=== PATIENT | male | born 1950 | race Caucasian/White ===

== ENCOUNTER 2016-11-18 13:10 | Inpatient (IN) | payer MEDICARE, OTHER ==
[~2016-11-18] VITALS: Ht 165.1 cm; Wt 67.8 kg
[~2016-11-18 13:10] MED LIST: ASP81 PO; ATOR40TA68 PO; BENA20TA65 PO; Carvedilol PO; FAMO20TA18 PO; FURO40TA PO; GLIM1TAB PO; PRED20TA PO; SPIR25TA76 PO
[2016-11-18] MEDS ORDERED: ASPIRIN 325 MG TAB PO STA (17:31)
[2016-11-18] MEDS ORDERED: morphine 4 MG/ML VIAL IV STA ×2 (18:30→23:45)
[2016-11-18] MEDS ORDERED: ONDANSETRON 4 MG INJ IV STA (18:30)
[2016-11-18 18:37] LABS: BASOPHILS % 0.4 % (0.0-2.0); EOSINOPHILS # 0.1 10^3/ul (0.0-0.5); EOSINOPHILS % 0.8 % (0.0-7.0); HEMATOCRIT 29.7 % (42.0-52.0); HEMOGLOBIN 9.8 g/dl (14.0-18.0); LYMPHOCYTES # 1.4 10^3/ul (0.8-2.9); LYMPHOCYTES % 17.9 % (15.0-51.0); MEAN CORPUSCULAR HEMOGLOBIN 31.2 pg (29.0-33.0); MEAN CORPUSCULAR VOLUME 94.7 fl (82.0-101.0); MEAN PLATELET VOLUME 10.1 fl (7.4-10.4); MONOCYTE # 0.6 10^3/ul (0.3-0.9); MONOCYTES % 7.3 % (0.0-11.0); NEUTROPHIL # 5.9 10^3/ul (1.6-7.5); NEUTROPHILS % 73.6 % (39.0-77.0); PLATELET COUNT 211 10^3/UL (140-440); RED BLOOD COUNT 3.13 10^6/ul (4.70-6.10); RED CELL DISTRIBUTION WIDTH 21.9 % (11.5-14.5)
[2016-11-18 18:39] LABS: CONDITION 1; LH ANALYZER COMMENTS 1
[2016-11-18 18:48] LABS: INR 1.8; PT RATIO 1.6
[2016-11-18 18:49] LABS: ALBUMIN 3.9 g/dl (3.3-4.9); CHLORIDE 110 mmol/L (97-110); PARTIAL THROMBOPLASTIN TIME 39.4 Sec (25.0-35.0); POTASSIUM 5.3 mmol/L (3.5-5.1); SODIUM 148 mmol/L (135-144)
--- NOTE | 2016-11-18 18:49 | RADRPT ---
PROCEDURE: XR Chest. CLINICAL INDICATION: Chest pain. TECHNIQUE: Single frontal view. COMPARISON: 09/06/2014. FINDINGS: There is a large right pleural effusion and associated consolidation in the right mid and lower lung zones. A mass lesion cannot be excluded. The left lung is clear and there is no left pleural effu jessica. The heart is enlarged. There is calcification in the aorta consistent with atherosclerosis. There is no pneumothorax. IMPRESSION: 1. Large right pleural effusion and consolidation in the right mid and lower lung zones. A mass le jessica cannot be excluded. Correlation with CT scan of chest is advised. 2. Clear left lung. 3. Cardiomegaly and atherosclerosis. RPTAT: QQ .Adrian Sosa MD, MD Date Time Electronically viewed and signed by .Adrian Sosa MD, on 11/18/2016 18:49 .R/
[2016-11-18 18:51] LABS: BILIRUBIN,INDIRECT 0.5 mg/dl (0-1.1); BILIRUBIN,TOTAL 0.5 mg/dl (0.2-1.3); CREATININE 1.91 mg/dl (0.61-1.24)
[2016-11-18 18:52] LABS: ALANINE AMINOTRANSFERASE 38 IU/L (13-69); ALBUMIN/GLOBULIN RATIO 0.82; ALKALINE PHOSPHATASE 265 IU/L (42-121); ANION GAP 19 (8-16); ASPARTATE AMINO TRANSFERASE 31 IU/L (15-46); BLOOD UREA NITROGEN 51 mg/dl (7-20); CARBON DIOXIDE 24 mmol/L (21-31); GLUCOSE 107 mg/dl (70-220); TOTAL PROTEIN 8.6 g/dl (6.1-8.1)
[2016-11-18 19:00] LABS: B-TYPE NATRIURETIC PEPTIDE 13600 PG/ML (0-125)
[2016-11-18 19:05] LABS: TROPONIN-I < 0.012 ng/ml (0.00-0.12)
[2016-11-18] MEDS ORDERED: NA POLYST SULFON 15 GM/60 ML BTL PO ONE (20:00)
[2016-11-18] MEDS ORDERED: FUROSEMIDE 40 MG INJ IV ONE (20:00)
[2016-11-18] MEDS ORDERED: ACETAMINOPHEN 325 MG TAB PO PRN (21:00)
[2016-11-18] MEDS ORDERED: ONDANSETRON 4 MG INJ IV PRN (21:00)
--- NOTE | 2016-11-18 21:13 | RADRPT ---
PROCEDURE: CT chest without contrast. CLINICAL INDICATION: Abnormal chest x-ray TECHNIQUE: Noncontrast CT of the chest was performed utilizing axial images with reconstructions i n sagittal and coronal planes. The administered radiation dose is CTDI 8.9 mGy, DLP 347 mGy-cm. COMPARISON: Chest x-ray performed earlier the same day. FINDINGS: Chest: There is a large, likely loculated right pleural effusion and atelectasis of most of the right lung. Also seen is a small to moderate left pleural effusion with some mild associated atelectasis. The re is opacification of and the right lower lobe bronchi. There is mild cardiomegaly. Coronary artery and cardiac valvular calcifications are noted. There i s small pericardial effusion. Some atherosclerotic calcifications are noted within the aorta. Visualized Upper abdomen: Unremarkable. Osseous structures: Unremarkable. IMPRESSION: Large right and small left pleural effusions with associated atelectasis. The right pleural effusio n is likely loculated. Opacification of some of the right lower lobe bronchi possibly due to mucous plugging although a les ion would not be excluded, especially on a noncontrast exam. RPTAT: HIKT .Bashir Persaud MD, Date Time Electronically viewed and signed by .Bashir Persaud MD, on 11/18/2016 21:13 .T/
[2016-11-18 23:45] VITALS: BP 137/76; PULSE 63; RESP 20
--- NOTE | 2016-11-18 23:49 | ERA ---
ER Documentation Chief Complaint Date/Time DATE: 11/18/16 TIME: 23:36 Chief Complaint Patient complains of chest pain and SOB hx of Ascites HPI 66-year-old male comes emergency room complaining of chest pain shortness of breath and diffuse abdominal pain. Has a history of liver failure with ascites. He denies any fever and chills. Chest pain is described as substernal and nonradiating. He's been having pain for 2 days. ROS All systems reviewed and are negative except as per history of present illness. Medications Home Meds Active Scripts Prednisone* (Prednisone*) 20 Mg Tab, 30 MG PO DAILY for 5 Days, TAB Prov:ABDOUL JONES [employer] LABORATORY ASSISTANT 04/28/15 Benazepril Hcl* (Lotensin*) 20 Mg Tab, 20 MG PO DAILY, #30 Prov:KATE JACOBS B[employer] LABORATORY ASSISTANT 09/07/14 Spironolactone* (Aldactone*) 25 Mg Tab, 25 MG PO DAILY, #30 Prov:KATE JACOBS [employer] LABORATORY ASSISTANT 09/07/14 Furosemide* (Lasix*) 40 Mg Tab, 40 MG PO BID DIURETICS, #60 Prov:KATE JACOBS [employer] LABORATORY ASSISTANT 09/07/14 [Carvedilol] 3.125 MG TAB No Conflict Check, 12.5 MG PO BID, #60 TAB Prov:KATE JACOBS [employer] LABORATORY ASSISTANT 09/07/14 Aspirin (Aspirin) 81 Mg Chew, 81 MG PO DAILY, #30 Prov:KATE JACOBS [employer] LABORATORY ASSISTANT 09/07/14 Reported Medications Atorvastatin* (Atorvastatin*) 40 Mg Tablet, 40 MG PO HS, TAB 09/07/14 Glimepiride* (Amaryl*) 1 Mg Tablet, 1 MG PO DAILY 09/28/12 Famotidine* (Famotidine*) 20 Mg Tablet, 20 MG PO DAILY 09/28/12 Allergies Allergies: Coded Allergies: No Known Allergy (Verified , 09/04/14) PMhx/Soc History of Surgery: Yes (Gastric Resection) Anesthesia Reaction: No Hx Neurological Disorder: No Hx Respiratory Disorders: No Hx Cardiac Disorders: Yes (CHF) Hx Psychiatric Problems: No Hx Miscellaneous Medical Probl: Yes (DM, Colon CA) Hx Alcohol Use: No Hx Substance Use: No Hx Tobacco Use: No Smoking Status: Never smoker Physical Exam Vitals Vital Signs Date Time Temp Pulse Resp B/P Pulse Ox O2 Delivery O2 Flow Rate FiO2 11/18/16 18:30 61 24 131/75 98 Nasal Cannula 2.0 11/18/16 18:16 59 18 130/79 99 Nasal Cannula 2.0 11/18/16 17:50 Nasal Cannula 2 11/18/16 13:15 98.3 71 20 143/81 97 Physical Exam Const: [] Mild distress, appears uncomfortable Head: Atraumatic Eyes: Normal Conjunctiva ENT: Normal External Ears, Nose and Mouth. Neck: Full range of motion..~ No meningismus. Resp: Markedly decreased right-sided breath sounds, left basilar rales, mild tachypnea Cardio: Regular rate and rhythm, no murmurs Abd: Soft, moderately distended, no specific tenderness,. Normal bowel sounds Skin: No petechiae or rashes Back: No midline or flank tenderness Ext: 2+ pitting edema bilateral lower extremities with distal pulses intact all 4 extremities Neur: Awake and alert and oriented 3, no focal deficits Psych: Normal Mood and Affect Result Diagram: 11/18/16 1800 11/18/16 1800 Results 24 hrs Laboratory Tests Test 11/18/16 18:00 Activated Partial Thromboplast Time 39.4Sec Alanine Aminotransferase (ALT/SGPT) 38IU/L Albumin 3.9g/dl Albumin/Globulin Ratio 0.82 Alkaline Phosphatase 265IU/L Anion Gap 19 Aspartate Amino Transf (AST/SGOT) 31IU/L B-Type Natriuretic Peptide 65040YT/ML Basophils # 0.010^3/ul Basophils % 0.4% Blood Morphology Comment Blood Urea Nitrogen 51mg/dl Calcium Level 9.0mg/dl Carbon Dioxide Level 24mmol/L Chloride Level 110mmol/L Creatinine 1.91mg/dl Direct Bilirubin 0.00mg/dl Eosinophils # 0.110^3/ul Eosinophils % 0.8% Globulin 4.70g/dl Glucose Level 107mg/dl Hematocrit 29.7% Hemoglobin 9.8g/dl INR International Normalized Ratio 1.80 Indirect Bilirubin 0.5mg/dl Lipase 104U/L Lymphocytes # 1.410^3/ul Lymphocytes % 17.9% Mean Corpuscular Hemoglobin 31.2pg Mean Corpuscular Hemoglobin Concent 33.0g/dl Mean Corpuscular Volume 94.7fl Mean Platelet Volume 10.1fl Monocytes # 0.610^3/ul Monocytes % 7.3% Neutrophils # 5.910^3/ul Neutrophils % 73.6% Nucleated Red Blood Cells # 0.010^3/ul Nucleated Red Blood Cells % 0.0/100WBC Platelet Count 73705^3/UL Potassium Level 5.3mmol/L Prothrombin Time 21.0Sec Prothrombin Time Ratio 1.6 Red Blood Count 3.1310^6/ul Red Cell Distribution Width 21.9% Sodium Level 148mmol/L Total Bilirubin 0.5mg/dl Total Protein 8.6g/dl Troponin I < 0.012ng/ml White Blood Count 8.010^3/ul Current Medications Medications (Trade) Dose Ordered Sig/[place] Route PRN Reason Start Time Stop Time Status Last Admin Dose Admin Aspirin (Aspirin) 325 mg ONCE STAT PO 11/18/16 17:31 11/18/16 17:32 DC 11/18/16 18:46 Morphine Sulfate (morphine) 4 mg ONCE STAT IV 11/18/16 18:30 11/18/16 18:31 DC 11/18/16 18:46 Ondansetron HCl (Zofran Inj) 4 mg ONCE STAT IV 11/18/16 18:30 11/18/16 18:31 DC 11/18/16 18:46 Furosemide (Lasix) 40 mg ONCE ONCE IV 11/18/16 20:00 11/18/16 20:01 DC 11/18/16 20:02 Sodium Polystyrene Sulfonate (Kayexalate) 30 gm ONCE ONCE PO 11/18/16 20:00 11/18/16 20:01 DC 11/18/16 19:58 Procedures/MDM 66-year-old male with dyspnea, tachypnea and large loculated right-sided pleural effusion, elevated BNP likely secondary to fluid overload from chronic renal failure versus congestive heart failure. Patient with chest pain was given aspirin, has no significant. Patient did have inverted T-wave in V6 however troponin is negative. Serial troponins will be trended. Patient and family state that he had a pleural effusion before that needed to be drained. This is likely reaccumulated causing his dyspnea. Had mild hyperkalemia was treated with Kayexalate. Given morphine for his pain as well as help decrease the pain. Being admitted to telemetry for further management. I spoke with Dr. Kelly who will be admitting. EKG interpretation: Sinus rhythm rate of 60, right bundle branch block, inverted T-wave in V6 and biphasic T waves in V5 concerning for possible lateral ischemia, right axis deviation satellite project site monitor interpretation: Normal sinus rhythm without arrhythmia Chest x-ray interpretation: Large right-sided pleural effusion with possible mass., No pneumothorax, no fractures Chest CT interpretation: Large loculated right pleural effusion, bilateral pleural effusions. No pneumothorax, no fractures Departure Diagnosis: Primary Impression: Fluid overload Additional Impressions: Pleural effusion Chest pain Hyperkalemia Dyspnea Renal insufficiency Normocytic anemia Condition: Serious GIBRANJOSUEREGGIE DO Nov 18, 2016 23:49
[2016-11-19] VITALS (11 sets, daily range): BP systolic 114–141; BP diastolic 66–75; PULSE 50–70; RESP 17–20; Ht 165.1 cm; Wt 67.8 kg
[2016-11-19 00:18] LABS: TROPONIN-I 0.016 ng/ml (0.00-0.12)
[2016-11-19 00:30] LABS: CK-MB 1.85 ng/ml (0.0-2.4)
[2016-11-19] MEDS ORDERED: GUAIFENESIN/CODEINE 5ML CUP PO ONE ×2 (01:00→02:00)
[2016-11-19] MEDS ORDERED: ACETAMINOPHEN 325 MG TAB PO PRN (01:00)
[2016-11-19] MEDS: ALBUTEROL/IPRATROPIUM (NEB) 3 ML AMP HHN PRN ×2 (01:55→11:17)
[2016-11-19] MEDS: morphine 4 MG/ML VIAL IV PRN ×2 (01:59→15:27)
[2016-11-19] MEDS ORDERED: ACCUCHECK XX SCH (02:00)
[2016-11-19] MEDS: ACCUCHECK XX SCH (02:12)
[2016-11-19] MEDS: ONDANSETRON 4 MG INJ IV PRN (03:35)
[2016-11-19] MEDS ORDERED: METOCLOPRAMIDE 10 MG INJ IV PRN (05:00)
--- NOTE | 2016-11-19 05:27 | RADRPT ---
PROCEDURE: XR Abdomen. CLINICAL INDICATION: Abdominal distension TECHNIQUE: Two AP views of the abdomen were obtained COMPARISON: None. FINDINGS: There is a nonobstructive bowel gas pattern. No abnormal soft tissue calcifications are seen. The v isualized portions of the lung bases demonstrate consolidation of the right lower lobe The osseous structures are unremarkable. IMPRESSION: Unremarkable abdomen x-ray. RPTAT: HH .Mohini Nam MD, MD Date Time Electronically viewed and signed by .Mohini Nam MD, on 11/19/2016 05:26 .G/
[2016-11-19] MEDS: FUROSEMIDE 20 MG INJ IV SCH (05:50)
[2016-11-19] MEDS ORDERED: FUROSEMIDE 40 MG TAB PO SCH (06:00)
[2016-11-19] MEDS: ONDANSETRON INJ 8 MG in DEXTROSE 5% 50 ML IV SCH ×4 (06:04→23:34)
[2016-11-19 06:38] LABS: TROPONIN-I 0.015 ng/ml (0.00-0.12)
[2016-11-19 06:44] LABS: CK-MB 1.78 ng/ml (0.0-2.4)
[2016-11-19] MEDS: INSULIN ASPART [NOVOLOG] 3 ML PEN SC SCH ×4 (07:55→20:51)
--- NOTE | 2016-11-19 08:32 | HP ---
DATE OF ADMISSION: 11/18/2016 TIME SEEN: 2300. CHIEF COMPLAINT: Shortness of breath and chest pain. HISTORY OF PRESENT ILLNESS: The patient is a 66-year-old female with a history of cardiomyopathy wi th systolic dysfunction with EF of 35%, hypertension, atrial fibrillation, dyslipidemia, type 2 diab etes, gastric and colon cancer, status post surgery who presented to the emergency department with s hortness of breath and chest pain. The patient also reported abdominal distention and lower extremi ty swelling. This symptom has been progressively getting worse for the past few days. The chest pa in is substernal, described as a sharp in tightness with no radiation. Denied nausea, vomiting, or diaphoresis. The patient does have a history of a pleural effusion requiring thoracentesis in the p ast. When the patient presented to the ER, blood pressure was 143/81, heart rate 71, respiratory rate 20, temperature 98.3, oxygen saturation 97%. Laboratory value shows a sodium of 148, potassium 5.3, BU N 51, creatinine 1.91, alkaline phosphatase 265, hemoglobin 9.8. BNP is 13,600. First troponin is negative. A chest x-ray shows a large right pleural effusion and consolidation in the right mid and lower lung zones. Mass cannot be excluded. CT of the chest was done which showed again large righ t and small left pleural effusion with associated atelectasis. The right pleural effusion is likely loculated. Also, opacification of some of the right lower lobe bronchi, possibly due to mucous plu gging, is noted. Also a lesion would not be excluded. Abdominal x-ray was done which was unremarka ble. The patient received 40 mg of IV Lasix, pain medication, and Kayexalate for hyperkalemia as we ll as aspirin, and admitted to telemetry unit. REVIEW OF SYSTEMS: A 12-point review of systems was performed and negative except as mentioned in t he HPI. PAST MEDICAL HISTORY: As per HPI. PAST SURGICAL HISTORY: Abdominal surgery for gastric and colon cancer. SOCIAL HISTORY: The patient does have a history of alcohol abuse, but no history of tobacco or illi cit drug use. FAMILY HISTORY: Noncontributory. ALLERGIES: NO KNOWN DRUG ALLERGIES. HOME MEDICATIONS: 1. Lipitor. 2. Benazepril. 3. Aldactone. 4. Aspirin. 5. Lasix. 6. Pepcid. 7. Glimepiride. 8. Prednisone. 9. Coreg. PHYSICAL EXAMINATION: VITAL SIGNS: Blood pressure 127/80, heart rate 61, respiratory rate 24, temperature 98.3, oxygen sa turation 99% on 3 L. GENERAL: The patient looks slightly uncomfortable, in mild distress. HEENT: No obvious head deformity. Pupils are reactive to light. Extraocular muscles intact. CARDIOVASCULAR: Regular rate and rhythm. LUNGS: Decreased breath sounds at the right side of her lung and at the bases on the left. ABDOMEN: Soft, distended, very minimal discomfort to deep palpation. There are positive bowel soun ds. EXTREMITIES: Positive for edema. NEUROLOGIC: No focal deficit. LABORATORY: Pertinent positives as mentioned in the HPI. IMAGING: Chest x-ray, chest CT, and abdominal x-ray results as mentioned in the HPI. IMPRESSION: 1. Shortness of breath, secondary to large pleural effusion. 2. Chest pain, most likely secondary to above. 3. Abdominal distention, from ascites, likely secondary to alcoholic liver disease. 4. History of cardiomyopathy with systolic dysfunction. 5. Chronic kidney disease. 6. Hyperkalemia. 7. History of atrial fibrillation, rate controlled and in sinus. 8. History of gastric and colon cancer status post surgery and chemo. 9. History of alcohol abuse. 10. Normocytic anemia, most likely secondary to anemia of chronic disease. PLAN: Continue telemetry monitoring. We will continue diuresis. Will order ultrasound-guided thor acentesis. Will also obtain abdominal ultrasound, and based on the results, reconsider paracentesis . Will obtain a 2-D echo. Continue her cardiac medication. Correct electrolytes as needed, the bill quesada has been given Kayexalate for hyperkalemia already. Avoid nephrotoxins and monitor kidney fun ction closely. She will also be placed on an antibiotic. Further workup and management will be per clinical course. Dictated By: RICK CHEUNG/LANG Conf#: [id number] DID#: [id number]
[2016-11-19] MEDS ORDERED: SOD CHLORIDE 0.9% 250 ML IV* ONE (08:54)
[2016-11-19] MEDS ORDERED: HEPARIN 5,000 UNIT/0.5 ML SYG SC SCH (09:00)
[2016-11-19] MEDS ORDERED: CARVEDILOL 12.5 MG PO SCH (09:00)
[2016-11-19] MEDS: SPIRONOLACTONE 25 MG TAB PO SCH (09:02)
[2016-11-19] MEDS: ASPIRIN 81 MG TAB PO SCH (09:02)
[2016-11-19] MEDS: FAMOTIDINE 20 MG TAB PO SCH (09:02)
[2016-11-19] MEDS: BENAZEPRIL 20 MG TAB PO SCH (09:03)
--- NOTE | 2016-11-19 09:51 | PN ---
Date/Time of Note Date/Time of Note DATE: 11/19/16 TIME: 09:39 Assessment/Plan VTE Prophylaxis VTE Prophylaxis Intervention: contraindicated VTE Contraindication Reason: blood coagulation disorder Lines/Catheters IV [facility]from [facility] Urinary Cath still in place: No Assessment/Plan Assessment/Plan 1. Shortness of breath, secondary to large pleural effusion. - thoracentesis once INR is decreased to 1.5 - FFP and Vit K to be given 2. Chest pain - pleuritic in nature - most likely secondary to above. 3. Abdominal distention, from ascites, likely secondary to alcoholic liver disease - monitor acute changes, abd x-ray negative 4. Cardiomyopathy with systolic dysfunction - f/u echo, strict I/O's 5. Chronic kidney disease - renally adjust medications, avoid nephrotoxins 6. Hyperkalemia - if > 5.5 - kayexlate 7. Atrial fibrillation, rate controlled and in sinus. - hold anticoagulation - 2/2 to coagulopathy 8. Gastric and colon cancer status post surgery and chemo. 9. Alcohol abuse - monitor labs 10. Normocytic anemia, most likely secondary to anemia of chronic disease. - stable 11. GI ppx - protonix 12. DVT ppx - scds dispo - f/u labs, INR, thoracentesis, as per clinical course. this progress note took greater than 40 minutes to complete Subjective 24 Hr Interval Summary Free Text/Dictation Patient was admitted overnight for shortness of breath. No acute complaints today. Spoke to him in regards to the care plan. 15 minutes spent. Exam/Review of Systems Vital Signs Vitals Vital Signs Date Time Temp Pulse Resp B/P Pulse Ox O2 Delivery O2 Flow Rate FiO2 11/19/16 08:12 60 11/19/16 03:35 97.6 17 134/73 98 11/19/16 02:06 Nasal Cannula 2.0 Intake and Output 11/18/16 11/18/16 11/19/16 15:00 23:00 07:00 Intake Total 200 ml Output Total 400 ml 830 ml Balance -400 ml -630 ml Exam Gen Ana: mild/moderate shortness of breath, AAOx4 HEENT: NC/AT, PERRLA, EOMI, no pharyngeal erythema, no tonsillar exudates, no lymphadenopathy, no JVD, no carotid bruits NECK: supple, no thyromegaly THORAX: symmetrical, no obvious deformities CV: S1S2, RRR, no M/G/R Lungs: right diminished breath sounds, left scattered rhonchi, crackles - no overt wheezing Abd: soft, NT/ND, +BS, no rebound, no guarding, neg HSM EXT: no edema, no ecchymosis, no clubbing, FROM Neuro: CN II-XII grossly intact, no focal deficits Psych: fair mood and affect Skin: C/D/I Results Result Diagram: 11/18/16 1800 11/18/16 1800 Results 24 hrs Laboratory Tests Test 11/18/16 18:00 11/18/16 23:45 11/19/16 01:37 11/19/16 05:15 Activated Partial Thromboplast Time 39.4 H Alanine Aminotransferase (ALT/SGPT) 38 Albumin 3.9 Albumin/Globulin Ratio 0.82 Alkaline Phosphatase 265 H Anion Gap 19 H Aspartate Amino Transf (AST/SGOT) 31 B-Type Natriuretic Peptide 59012 H Basophils # 0.0 Basophils % 0.4 Blood Morphology Comment Blood Urea Nitrogen 51 H Calcium Level 9.0 Carbon Dioxide Level 24 Chloride Level 110 Creatinine 1.91 H Direct Bilirubin 0.00 Eosinophils # 0.1 Eosinophils % 0.8 Globulin 4.70 H Glucose Level 107 Hematocrit 29.7 L Hemoglobin 9.8 L INR International Normalized Ratio 1.80 Indirect Bilirubin 0.5 Lipase 104 Lymphocytes # 1.4 Lymphocytes % 17.9 Mean Corpuscular Hemoglobin 31.2 Mean Corpuscular Hemoglobin Concent 33.0 Mean Corpuscular Volume 94.7 Mean Platelet Volume 10.1 Monocytes # 0.6 Monocytes % 7.3 Neutrophils # 5.9 Neutrophils % 73.6 Nucleated Red Blood Cells # 0.0 Nucleated Red Blood Cells % 0.0 Platelet Count 211 # Potassium Level 5.3 H Prothrombin Time 21.0 H Prothrombin Time Ratio 1.6 Red Blood Count 3.13 L Red Cell Distribution Width 21.9 #H Sodium Level 148 H Total Bilirubin 0.5 Total Protein 8.6 H Troponin I < 0.012 0.016 0.015 White Blood Count 8.0 # Creatine Kinase 75 69 Creatine Kinase Index 2.5 2.6 Creatinine Kinase MB (Mass) 1.85 1.78 Bedside Glucose 116 Test 11/19/16 08:53 Bedside Glucose 107 Medications Medications Current Medications Diagnostic Test (Pha) (Accucheck) 1 ea 02 XX Last administered on 11/19/16at 02 :12; Admin Dose 1 EA; Start 11/19/16 at 02:00 Acetaminophen (Tylenol Tab) 650 mg Q6H PRN PO PAIN AND OR ELEVATED TEMP; Start 11/19/16 at 01:00 Ondansetron HCl (Zofran Inj) 4 mg Q6H PRN IV NAUSEA AND/OR VOMITING Last administered on 11/19/16 03:35; Admin Dose 4 MG; Start 11/19/16 at 01:00 Aspirin (Aspirin) 81 mg DAILY PO Last administered on 11/19/16 09:02; Admin Dose 81 MG; Start 11/19/16 at 09:00 Atorvastatin Calcium (Lipitor) 40 mg HS PO ; Start 11/19/16 at 21:00 Benazepril HCl (Lotensin) 20 mg DAILY PO Last administered on 11/19/16 09:03 ; Admin Dose 20 MG; Start 11/19/16 at 09:00 Famotidine (Pepcid) 20 mg DAILY PO Last administered on 11/19/16at 09:02; Admin Dose 20 MG; Start 11/19/16 at 09:00 Spironolactone (Aldactone) 25 mg DAILY PO Last administered on 11/19/16 09:02 ; Admin Dose 25 MG; Start 11/19/16 at 09:00 Carvedilol (Coreg) 12.5 mg BID PO Last administered on 11/19/16 09:05; Admin Dose 12.5 MG; Start 11/19/16 at 09:00 Morphine Sulfate 3 mg 3 mg Q4H PRN IV PAIN Last administered on 11/19/16at 01: 59; Admin Dose 3 MG; Start 11/19/16 at 01:30 Ondansetron HCl/ Dextrose (Zofran Inj/D5W) 54 ml @ 108 mls/hr Q6H IV Last administered on 11/19/16 06:04; Admin Dose 108 MLS/HR; Start 11/19/16 at 05: 00 Metoclopramide HCl (Reglan) 10 mg Q6H PRN IV VOMITTING Last administered on 05:21; Admin Dose 10 MG; Start 11/19/16 at 05:00 Furosemide (Lasix) 20 mg DAILY@06 IV Last administered on 12/26/16at 05:50; Admin Dose 20 MG; Start 11/19/16 at 06:00 AZRA GUPTA MD Nov 19, 2016 09:51
[2016-11-19] MEDS ORDERED: PHYTONADIONE 5 MG in DEXTROSE 5% 50 ML IVPB ONE (10:00)
--- NOTE | 2016-11-19 13:32 | CONS ---
DATE OF ADMISSION: 11/18/2016 DATE OF CONSULTATION: 11/19/2016 TYPE OF CONSULTATION: Pulmonary. REFERRING PHYSICIAN: Dr. Hubert Angulo REASON FOR CONSULTATION: Shortness of breath and right pleural effusion. HISTORY OF PRESENT ILLNESS: A 66-year-old gentleman with past medical history of cardiomyopathy wit h ejection fraction of 35%, hypertension, atrial fibrillation, dyslipidemia, diabetes type 2, history of gastric and colon CA status post-surgical resection who presented to ER with complaints of chest pain and shortness of breath. He was describing his chest pain as chest tightness with no specific radiation. This was not associated with any diaphoresis, nausea, vomiting. Here, a CT scan of the chest was obtained which revealed a right pleural effusion, partially loculated. Subsequently, the patient was cultured and started on IV antibiotics and diuretic therapy. The patient claims that he has cough for past few days and brownish sputum. He denies any hemoptysis or other complaints. REVIEW OF SYSTEMS: CONSTITUTIONAL: Denies having fever, chills, night sweats. RESPIRATORY: As mentioned above. CARDIOVASCULAR: Admits to chest pain as mentioned above. No palpitation. GASTROINTESTINAL: Denies any nausea, vomiting, diarrhea, abdominal pain. GENITOURINARY: Denies dysuria, hematuria. NEUROLOGICAL: Denies dizziness, loss of consciousness. Other 12-point review of system was also pe rformed and found to be negative. PAST MEDICAL HISTORY: As mentioned above. ALLERGIES: DENIES. SOCIAL HABITS: History of alcohol abuse in the past. Denies smoking or drug abuse. FAMILY HISTORY: Noncontributory. PHYSICAL EXAMINATION: VITAL SIGNS: Blood pressure 141/75, pulse 64, respirations 20, temperature 97.9. Currently on 2 li ters O2 nasal cannula, saturating 100%. HEENT: Pupils are equal and react to light. Anicteric sclerae. NECK: Mild JVD noted, no cervical adenopathy, no carotid bruits heard. LUNGS: Decreased breath sounds on the right lung field. CARDIOVASCULAR: S1 and S2 normal. ABDOMEN: Soft, nontender. Slightly distended. Positive bowel sounds. EXTREMITIES: No clubbing, cyanosis or edema noted. NEUROLOGIC: No focal deficits. LABORATORIES: Sodium 148, potassium 5.3, chloride 110, CO2 24, BUN 51, creatinine 1.91, glucose 107 , alkaline phosphatase 65. BNP 13,600. Troponin 0.01. WBC 8, hemoglobin 9.8, hematocrit 29.7, alyssa telets 311 troponins are also negative. INR 1.8. Chest x-ray as mentioned above. IMPRESSION: A 66-year-old male with given the symptoms of cough, brownish sputum. I suspect the pa sangita has a right lower lobe pneumonia. 1. Right pleural effusion, question loculated. 2. Chest pain. 3. History of cardiomyopathy. 4. History of atrial fibrillation. 5. History of gastric and colon carcinoma. 6. History of chronic liver disease. RECOMMENDATIONS: 1. Sputum culture. 2. Antibiotics. 3. Thoracentesis once INR normalizes. I will follow along with you. Thank you very much for this referral. Dictated By: ANKITA PICKERING MD, MA/LANG Conf#: [id number] DID#: [id number]
[2016-11-19] MEDS: ATORVASTATIN 40 MG TAB PO SCH (20:51)
[2016-11-20] VITALS (12 sets, daily range): BP systolic 84–139; BP diastolic 51–73; PULSE 54–70; RESP 16–20
[2016-11-20] MEDS: ACCUCHECK XX SCH (02:00)
[2016-11-20] MEDS: FUROSEMIDE 20 MG INJ IV SCH (05:41)
[2016-11-20] MEDS: ONDANSETRON INJ 8 MG in DEXTROSE 5% 50 ML IV SCH ×4 (05:41→23:37)
[2016-11-20 06:14] LABS: INR 1.47; PROTIME 17.9 Sec (12.2-14.2); PT RATIO 1.4
[2016-11-20 06:16] LABS: PARTIAL THROMBOPLASTIN TIME 43.6 Sec (25.0-35.0)
[2016-11-20 06:25] LABS: BASOPHILS % 0.4 % (0.0-2.0); EOSINOPHILS # 0.1 10^3/ul (0.0-0.5); EOSINOPHILS % 0.8 % (0.0-7.0); HEMATOCRIT 26.2 % (42.0-52.0); HEMOGLOBIN 8.9 g/dl (14.0-18.0); LYMPHOCYTES # 1.1 10^3/ul (0.8-2.9); LYMPHOCYTES % 17.2 % (15.0-51.0); MEAN CORPUSCULAR HEMOGLOBIN 34.7 pg (29.0-33.0); MEAN CORPUSCULAR HGB CONC 34.1 g/dl (32.0-37.0); MEAN CORPUSCULAR VOLUME 101.7 fl (82.0-101.0); MEAN PLATELET VOLUME 9.8 fl (7.4-10.4); MONOCYTE # 0.5 10^3/ul (0.3-0.9); NEUTROPHIL # 4.9 10^3/ul (1.6-7.5); NEUTROPHILS % 73.6 % (39.0-77.0); PLATELET COUNT 174 10^3/UL (140-440); RED BLOOD COUNT 2.57 10^6/ul (4.70-6.10); RED CELL DISTRIBUTION WIDTH 21.1 % (11.5-14.5); UNCORRECTED WBC 6.6 10^3/ul (4.8-10.8); WHITE BLOOD COUNT 6.6 10^3/ul (4.8-10.8)
[2016-11-20 06:35] LABS: POTASSIUM 5.4 mmol/L (3.5-5.1)
[2016-11-20 06:37] LABS: CREATININE 2.13 mg/dl (0.61-1.24)
[2016-11-20 06:38] LABS: CALCIUM 8.7 mg/dl (8.4-10.2)
[2016-11-20 07:24] LABS: CONDITION 1; LH ANALYZER COMMENTS 1
[2016-11-20] MEDS ORDERED: GLUCOSE GEL 15 GRAM TUBE PO PRN ×2 (07:30)
[2016-11-20] MEDS ORDERED: GLUCOSE GEL 15 GRAM TUBE BUCCAL PRN (07:30)
[2016-11-20] MEDS ORDERED: GLUCAGON 1 MG INJ IM PRN (07:30)
[2016-11-20] MEDS ORDERED: DEXTROSE 50% 50 ML SYRINGE IV PRN ×2 (07:30)
[2016-11-20] MEDS: INSULIN ASPART [NOVOLOG] 3 ML PEN SC SCH ×4 (07:55→20:54)
[2016-11-20] MEDS: ASPIRIN 81 MG TAB PO SCH (08:31)
[2016-11-20] MEDS: SPIRONOLACTONE 25 MG TAB PO SCH (08:31)
[2016-11-20] MEDS: FAMOTIDINE 20 MG TAB PO SCH (08:31)
[2016-11-20] MEDS: BENAZEPRIL 20 MG TAB PO SCH (08:34)
--- NOTE | 2016-11-20 09:59 | PN ---
Date/Time of Note Date/Time of Note DATE: 11/20/16 TIME: 09:51 Assessment/Plan VTE Prophylaxis VTE Prophylaxis Intervention: contraindicated VTE Contraindication Reason: blood coagulation disorder Lines/Catheters IV C[facility]ter Type (from [facility] Peripheral IV Urinary Cath still in place: No Assessment/Plan Assessment/Plan 1. Shortness of breath, secondary to large pleural effusion. - thoracentesis today - f/u cytology/culture, appreciate pulm c/s 2. Chest pain - pleuritic in nature - most likely secondary to above. 3. Abdominal distention, from ascites, likely secondary to alcoholic liver disease - monitor acute changes, abd x-ray negative 4. Cardiomyopathy with systolic dysfunction - f/u echo, strict I/O's 5. Chronic kidney disease - renally adjust medications, avoid nephrotoxins 6. Hyperkalemia - if > 5.5 - kayexlate - will give 15 mg po today 7. Atrial fibrillation, rate controlled and in sinus. - hold anticoagulation - 2/2 to coagulopathy 8. Coagulopathy - will check hepatitis panel - most likely chronic liver disease 9. Gastric and colon cancer status post surgery and chemo. 10. Alcohol abuse - monitor labs 11. Megaloblastic anemia, most likely secondary to anemia of chronic disease. - check folate/vitb12 12. GI ppx - protonix 13. DVT ppx - scds dispo - f/u labs, INR, thoracentesis, as per clinical course. this progress note took greater than 30 minutes to complete Subjective 24 Hr Interval Summary Free Text/Dictation Patient had no overnight events. States that his breathing has improved slightly. Discussed with him and his about the care plan. 15 minutes spent. Exam/Review of Systems Vital Signs Vitals Vital Signs Date Time Temp Pulse Resp B/P Pulse Ox O2 Delivery O2 Flow Rate FiO2 11/20/16 08:16 58 11/20/16 05:45 2.0 11/20/16 04:00 98.0 18 113/70 98 Room Air Intake and Output 11/19/16 11/19/16 11/20/16 14:59 22:59 06:59 Intake Total 720 ml 660 ml Output Total 650 ml 1200 ml Balance 70 ml -540 ml Exam Gen Ana: mild shortness of breath, AAOx4 HEENT: NC/AT, PERRLA, EOMI, no pharyngeal erythema, no tonsillar exudates, no lymphadenopathy, no JVD, no carotid bruits NECK: supple, no thyromegaly THORAX: symmetrical, no obvious deformities CV: S1S2, RRR, no M/G/R Lungs: right diminished breath sounds, left scattered rhonchi, crackles - no overt wheezing - no new changes Abd: soft, NT/ND, +BS, no rebound, no guarding, neg HSM EXT: no edema, no ecchymosis, no clubbing, FROM Neuro: CN II-XII grossly intact, no focal deficits Psych: fair mood and affect Skin: C/D/I Results Result Diagram: 11/20/1651511/20/16 05 Results 24 hrs Laboratory Tests Test 11/19/16 12:43 11/19/16 17:31 11/19/16 20:48 11/20/16 05:16 Bedside Glucose 136 141 133 Activated Partial Thromboplast Time 43.6 H Anion Gap 19 H Basophils # 0.0 Basophils % 0.4 Blood Morphology Comment Blood Urea Nitrogen 54 H Calcium Level 8.7 Carbon Dioxide Level 23 Chloride Level 107 Creatinine 2.13 H Eosinophils # 0.1 Eosinophils % 0.8 Glucose Level 100 Hematocrit 26.2 L Hemoglobin 8.9 L INR International Normalized Ratio 1.47 Lymphocytes # 1.1 Lymphocytes % 17.2 Mean Corpuscular Hemoglobin 34.7 H Mean Corpuscular Hemoglobin Concent 34.1 Mean Corpuscular Volume 101.7 H Mean Platelet Volume 9.8 Monocytes # 0.5 Monocytes % 8.0 Neutrophils # 4.9 Neutrophils % 73.6 Nucleated Red Blood Cells # 0.0 Nucleated Red Blood Cells % 0.0 Platelet Count 174 Potassium Level 5.4 H Prothrombin Time 17.9 H Prothrombin Time Ratio 1.4 Red Blood Count 2.57 L Red Cell Distribution Width 21.1 H Sodium Level 144 White Blood Count 6.6 Test 11/20/16 08:30 Bedside Glucose 106 Medications Medications Current Medications Diagnostic Test (Pha) (Accucheck) 1 ea XX Last administered on 11/19/16at 02 :12; Admin Dose 1 EA; Start 11/19/16 at 02:00 Acetaminophen (Tylenol Tab) 650 mg Q6H PRN PO PAIN AND OR ELEVATED TEMP; Start 11/19/16 at 01:00 Ondansetron HCl (Zofran Inj) 4 mg Q6H PRN IV NAUSEA AND/OR VOMITING Last administered on 11/19/16 03:35; Admin Dose 4 MG; Start 11/19/16 at 01:00 Aspirin (Aspirin) 81 mg DAILY PO Last administered on 11/20/16 08:31; Admin Dose 81 MG; Start 11/19/16 at 09:00 Atorvastatin Calcium (Lipitor) 40 mg HS PO Last administered on 11/19/16at 20: 51; Admin Dose 40 MG; Start 11/19/16 at 21:00 Benazepril HCl (Lotensin) 20 mg DAILY PO Last administered on 11/19/16 09:03 ; Admin Dose 20 MG; Start 11/19/16 at 09:00 Famotidine (Pepcid) 20 mg DAILY PO Last administered on 11/20/16 08:31; Admin Dose 20 MG; Start 11/19/16 at 09:00 Spironolactone (Aldactone) 25 mg DAILY PO Last administered on 11/20/16 08:31 ; Admin Dose 25 MG; Start 11/19/16 at 09:00 Carvedilol (Coreg) 12.5 mg BID PO Last administered on 11/20/16 08:31; Admin Dose 12.5 MG; Start 11/19/16 at 09:00 Morphine Sulfate 3 mg 3 mg Q4H PRN IV PAIN Last administered on 11/19/16 15: 27; Admin Dose 3 MG; Start 11/19/16 at 01:30 Ondansetron HCl/ Dextrose (Zofran Inj/D5W) 54 ml @ 108 mls/hr Q6H IV Last administered on 11/20/16 05:41; Admin Dose 108 MLS/HR; Start 11/19/16 at 05: 00 Metoclopramide HCl (Reglan) 10 mg Q6H PRN IV VOMITTING Last administered on 05:21; Admin Dose 10 MG; Start 11/19/16 at 05:00 Furosemide (Lasix) 20 mg DAILY@06 IV Last administered on 11/20/16 05:41; Admin Dose 20 MG; Start 11/19/16 at 06:00 Miscellaneous Information 1 ea NOTE XX ; Start 11/20/16 at 07:30 Glucose (Glutose) 15 gm Q15M PRN PO DECREASED GLUCOSE; Start 11/20/16 at 07:30 Glucose (Glutose) 22.5 gm Q15M PRN PO DECREASED GLUCOSE; Start 11/20/16 at 07: 30 Dextrose (D50w Syringe) 25 ml Q15M PRN IV DECREASED GLUCOSE; Start 11/20/16 at 07:30 Dextrose (D50w Syringe) 50 ml Q15M PRN IV DECREASED GLUCOSE; Start 11/20/16 at 07:30 Glucagon (Glucagen) 1 mg Q15M PRN IM DECREASED GLUCOSE; Start 11/20/16 at 07: 30 Glucose (Glutose) 15 gm Q15M PRN BUCCAL DECREASED GLUCOSE; Start 11/20/16 at 07:30 AZRA GUPTA MD Nov 20, 2016 09:58
[2016-11-20] MEDS ORDERED: NA POLYST SULFON 15 GM/60 ML BTL PO ONE (10:00)
[2016-11-20] MEDS: ALBUTEROL/IPRATROPIUM (NEB) 3 ML AMP HHN PRN (12:43)
--- NOTE | 2016-11-20 13:36 | RADRPT ---
Echocardiogram Report Patient Name: EFREN HEAD Gender: Male Date: 1950 Study Date: 20-Nov-2016 Finance Officer: Kaity Martinez [facility] Location: [address] Ref. Physician: AZRA GUPTA Quality: Good Procedures: Transthoracic echocardiogram with complete 2D, M-Mode, and doppler examination. Indications: Pleural Effusion. 2D/M Mode Doppler Measurement Value Normal Ranges Measurement Value Normal Ranges LVIDd 2D 4.4 3.5 - 5.6 cm AV Peak Jairo 1.6 m/sec LVIDs 2D 3.1 2.1 - 4.1 cm AV Peak PG 10.7 mmHg LVPWd 2D 0.8 0.6 - 1.1 cm LVOT Peak Jairo 0.7 m/sec IVSd 2D 0.9 0.6 - 1.1 cm LVOT Peak PG 1.9 mmHg AoR Diam 2D 2.4 2.0 - 3.7 cm TR Peak Jairo 3.2 m/sec EDV 2D 86.5 cm3 TR Peak PG 39.8 mmHg ESV 2D 30.4 cm3 RVSP 55.0 mmHg LA Dimen 2D 4.1 2.3 - 4.0 cm Findings Left Ventricle: Normal left ventricular cavity size. Normal left ventricular wall thickness. Moderate left ventricular systolic dysfunction. Ejection fraction is visually estimated at 35 %. Tissue Doppler/Mitral Doppler indices are consistent with restrictive physiology with markedly elevated left atrial pressure (Stage IIIIV diastolic dysfunction). Multiple segmental wall motion abnormalities. Right Ventricle: Normal right ventricular size. Normal right ventricular systolic function. Left Atrium: There is mild enlargement of left atrium. Right Atrium: There is moderate enlargement of right atrium. Mitral Valve: Mitral valve leaflets appear mildly thickened. Mild mitral annular calcification. Mild mitral valve regurgitation. Aortic Valve: No hemodynamically significant aortic stenosis by doppler. Aortic cusps appear mildly calcified. Trace aortic valve regurgitation. Tricuspid Valve: Estimated peak PA systolic pressure 55 mmHg. Tricuspid valve appears mildly thickened. There is moderate to severe tricuspid regurgitation. Pulmonic Valve: Normal pulmonic valve appearance. Pericardium: Normal pericardium with no significant pericardial effusion. Bilateral pleural effusion seen. Aorta: Normal aortic root. IVC: Dilated IVC without respiratory collapse consistent with elevated right atrial pressure. Pulmonary Artery: Normal pulmonary artery size. Conclusions 1.Normal left ventricular cavity size. Normal left ventricular wall thickness. Moderate left ventricular systolic dysfunction. Ejection fraction is visually estimated at 35 %. Tissue Doppler/Mitral Doppler indices are consistent with restrictive physiology with markedly elevated left atrial pressure (Stage III-IV diastolic dysfunction). Multiple segmental wall motion abnormalities. 2.There is mild enlargement of left atrium. 3.Mitral valve leaflets appear mildly thickened. Mild mitral annular calcification. Mild mitral valve regurgitation. 4.No hemodynamically significant aortic stenosis by doppler. Aortic cusps appear mildly calcified. Trace aortic valve regurgitation. 5.Estimated peak PA systolic pressure 55 mmHg. Tricuspid valve appears mildly thickened. There is moderate to severe tricuspid regurgitation. 6.Dilated IVC without respiratory collapse consistent with elevated right atrial pressure. Electronically Signed By: Alfa Macias 20-Nov-2016 13:36:36 -0800 Patient Name: EFREN HEAD Study Date: 20-Nov-2016 [id number]
[2016-11-20] MEDS ORDERED: LIDOCAINE 1% (MPF) 5 ML VIAL ONE (14:59)
--- NOTE | 2016-11-20 15:06 | RADRPT ---
PROCEDURE: US guided right thoracentesis. CLINICAL INDICATION: Shortness of breath. Right pleural effusion. TECHNIQUE: Prior to the procedure, informed consent was obtained. The risks, benefits, and alternatives were e xplained to the patient or the patient's family, including but not limited to bleeding, infection, p ain, visceral or vascular damage, shock, pneumothorax, chest tube placement, air embolism, and . The patient or the patient's family understood the risks and the alternatives and wished to proce ed with the study. Informed written consent was obtained. A procedural pause was performed. The patient's name, date of , and procedure to be performed were verified. Ultrasound of the right hemithorax was performed in the axial and sagittal planes. A right pleural e ffusion is noted. Utilizing ultrasound guidance, optimal location for entry to the pleural cavity wa s ascertained. The overlying skin was prepped and draped in the usual sterile fashion. Approximate ly 10 ml of 1% Xylocaine was injected locally for pain control. Using ultrasound guidance, a 5-Fren Yueh catheter was introduced into the right pleural space without difficulty. Fluid was aspirated . COMPARISON: CT scan of the chest dated 11/18/2016. FINDINGS: Initial ultrasound demonstrates fluid in the right pleural space. Approximately 1.0 liters of serou s fluid was aspirated and sent to the laboratory. IMPRESSION: 1. Satisfactory ultrasound-guided right thoracentesis. RPTAT: QQ .Adrian Sosa MD, Date Time Electronically viewed and signed by .Adrian Sosa MD, on 11/20/2016 15:05 .R/
--- NOTE | 2016-11-20 15:40 | RADRPT ---
PROCEDURE: XR Chest. CLINICAL INDICATION: Shortness of breath. TECHNIQUE: Single frontal view. COMPARISON: 11/18/2016. FINDINGS: The heart is enlarged. There is calcification in the aorta consistent with atherosclerosis. There is a moderate right pleural effusion which is partially loculated laterally. This is smaller than seen previously. There is associated atelectasis throughout the right mid and lower lung zones . The pleural effusion is smaller than seen previously. There is also a small left pleural effusio n, slightly larger than seen previously. There is mild left basilar atelectasis, unchanged. There is no pneumothorax. IMPRESSION: 1. No pneumothorax following right thoracentesis. 2. Small left pleural effusion, slightly larger than seen previously. 3. No other change from 11/18/2016. RPTAT: QQ .Adrian Sosa MD, Date Time Electronically viewed and signed by .Adrian Sosa MD, on 11/20/2016 15:40 .R/
--- NOTE | 2016-11-20 16:01 | CONS ---
DATE OF ADMISSION: 11/18/2016 DATE OF CONSULTATION: 11/20/2016 TYPE OF CONSULTATION: Cardiology. REFERRING PHYSICIAN: Dr. Martin REASON FOR CONSULTATION: Congestive heart failure. CHIEF COMPLAINT: Shortness of breath as well as chest pain, pleuritic. HISTORY OF PRESENT ILLNESS: Thank you for this referral. History obtained from the patient, samira lopez with his son, discussion with his , extensive review of the old chart, discussion with Dr. Martin and staff. This is a pleasant 66-year-old gentleman with multiple complicated medi carleen history including history of cardiomyopathy, last reported ejection fraction was about 35%, hist ory of hypertension, paroxysmal atrial fibrillation, appeared to have had a DC cardioversion 2 to 3 months ago, history of gastric and colon cancer, status post surgery who came to the ER ____ complai moshe of shortness of breath. The patient over the past week has been getting increasing shortness o f breath. He has had orthopnea. He has also had lower extremity edema which has been going on for a long time. The patient said he has also had renal dysfunction. He was [facility] at [facility] and was given "IV fluid" because the kidney was not working well. Patient came to the emergency room wi th shortness of breath, significant pleural effusion, and is being admitted for further workup. Cre atinine also has been increased as well. PAST MEDICAL HISTORY: History of congestive heart failure, ejection fraction about 35%, history of gastric ____ colon cancer, status post abdominal surgeries. History of dyslipidemia, hypertension, renal insufficiency as above mentioned, diabetes. He is unclear if he had a heart attack or not. MEDICATIONS: He does not remember exactly, but the best I could obtain as per medical reconciliatio n, he is probably taking Coumadin as well too, although he is not sure. FAMILY HISTORY: No reported coronary artery disease. SOCIAL HISTORY: The patient does not smoke or drink at this point. ALLERGIES: NO KNOWN DRUG ALLERGIES. REVIEW OF SYSTEMS: As above-mentioned, he also has generalized fatigue as well. PHYSICAL EXAMINATION: VITAL SIGNS: Temperature 98.5, heart rate of 55, blood pressure of 91/56, respiratory rate of 18, s aturating 99%. HEENT: Normocephalic, atraumatic. Pupils are equal. GENERAL: Thin gentleman. CARDIOVASCULAR: Regular rate and rhythm, systolic murmur. PULMONARY: With decreased breath sounds and diffuse rhonchi on the right side. GASTROINTESTINAL: Soft, nontender. EXTREMITIES: Diffuse lower extremity edema. NEUROLOGIC: Awake and alert. LABORATORY: INR was 1.8 on admission and 1.47 now. Sodium 144, potassium 5.4, BUN of 54, creatinin e 2.12, glucose 100. WBC of 6.6, hemoglobin 8.9, platelets of 174. EKG: Sinus bradycardia with anteroseptal infarct, age undetermined, ST-T abnormality suggesting ___ _ ischemia. Echocardiogram was personally reviewed, showed normal LV size and ejection fraction abo ut 35% and multiple wall motion abnormalities including anterior wall hypokinesis. I have personall y reviewed. ____ pressure was elevated at 55 mmHg. Chest x-ray shows large pleural effusion on the right side, left side is clear. CT of the chest showed large right and small left pleural effusion with associated atelectasis. Rig ht pleural effusion is likely loculated. Opacification of some of the right lower lobe bronchi, pos sibly due to mucous plugging, although a lesion could not be excluded. ASSESSMENT AND PLAN: 1. Congestive heart failure. 2. Moderate to severe cardiomyopathy. 3. Pleural effusion. 4. Atypical chest pain. 5. History of gastric and colon cancer. 6. Renal insufficiency, probably chronic, possibly acute on chronic. 7. Hyperkalemia. 8. History of paroxysmal atrial fibrillation, currently in sinus rhythm. 9. History of alcohol abuse in the past, currently denies any active use. 10. Anemia. RECOMMENDATIONS: I will discontinue the Aldactone. Continue with the Lasix, consider renal consult ation. Thoracentesis is going to be scheduled. I will continue with the IV Lasix and adjust it as needed. Continue to monitor him on telemetry. EMMIE inhibitor will be held for now given his renal i nsufficiency and hyperkalemia with ____. We will continue to follow along with you. Cardiac enzymes have been negative x3. We will continue to follow with you. Thank you for this referral. Dictated By: COLIN MANJARREZ/LANG Conf#: [id number] DID#: [id number]
[2016-11-20 16:17] LABS: FLUID LD 242 U/L; FLUID TYPE FLUID
[2016-11-20 16:55] LABS: FLUID APPEARANCE HAZY; FLUID LYMPHOCYTES 52 %; FLUID MONOCYTES 14 %; FLUID NEUTROPHILS 34 %; FLUID RBC EST 3+; FLUID TYPE PLEURAL; FLUID WBC'S 36 /cmm
[2016-11-20] MEDS: morphine 4 MG/ML VIAL IV PRN (17:52)
[2016-11-20] MEDS: ATORVASTATIN 40 MG TAB PO SCH (20:45)
[2016-11-21] VITALS (13 sets, daily range): BP systolic 97–109; BP diastolic 56–65; PULSE 57–69; RESP 18–20
[2016-11-21] MEDS: ACCUCHECK XX SCH (02:00)
[2016-11-21] MEDS: FUROSEMIDE 20 MG INJ IV SCH (05:44)
[2016-11-21] MEDS: ONDANSETRON INJ 8 MG in DEXTROSE 5% 50 ML IV SCH (05:44)
[2016-11-21 07:45] LABS: BASOPHILS % 0.5 % (0.0-2.0); EOSINOPHILS # 0.1 10^3/ul (0.0-0.5); EOSINOPHILS % 0.7 % (0.0-7.0); HEMATOCRIT 26.5 % (42.0-52.0); HEMOGLOBIN 8.8 g/dl (14.0-18.0); LYMPHOCYTES # 1.4 10^3/ul (0.8-2.9); LYMPHOCYTES % 18.8 % (15.0-51.0); MEAN CORPUSCULAR HEMOGLOBIN 31.2 pg (29.0-33.0); MEAN CORPUSCULAR HGB CONC 33.1 g/dl (32.0-37.0); MEAN CORPUSCULAR VOLUME 94.4 fl (82.0-101.0); MEAN PLATELET VOLUME 9.5 fl (7.4-10.4); MONOCYTE # 0.6 10^3/ul (0.3-0.9); MONOCYTES % 7.9 % (0.0-11.0); NEUTROPHIL # 5.4 10^3/ul (1.6-7.5); NEUTROPHILS % 72.1 % (39.0-77.0); PLATELET COUNT 183 10^3/UL (140-440); RED BLOOD COUNT 2.81 10^6/ul (4.70-6.10); RED CELL DISTRIBUTION WIDTH 21.2 % (11.5-14.5); UNCORRECTED WBC 7.4 10^3/ul (4.8-10.8); WHITE BLOOD COUNT 7.4 10^3/ul (4.8-10.8)
[2016-11-21 07:47] LABS: ALBUMIN 3.5 g/dl (3.3-4.9)
[2016-11-21 07:48] LABS: CONDITION 1; LH ANALYZER COMMENTS 1; POTASSIUM 5.1 mmol/L (3.5-5.1); SUSPECT 1
[2016-11-21 07:50] LABS: ALBUMIN/GLOBULIN RATIO 0.85; BILIRUBIN,INDIRECT 0.7 mg/dl (0-1.1); BILIRUBIN,TOTAL 0.7 mg/dl (0.2-1.3); CREATININE 2.76 mg/dl (0.61-1.24); TOTAL PROTEIN 7.6 g/dl (6.1-8.1)
[2016-11-21 07:51] LABS: CALCIUM 8.5 mg/dl (8.4-10.2); MAGNESIUM 2.3 mg/dl (1.7-2.5)
[2016-11-21] MEDS: INSULIN ASPART [NOVOLOG] 3 ML PEN SC SCH ×4 (07:55→20:38)
[2016-11-21] MEDS: ALBUTEROL/IPRATROPIUM (NEB) 3 ML AMP HHN PRN ×2 (08:18→20:29)
[2016-11-21 08:22] LABS: THYROID STIMULATING HORMONE 2.29 MIU/L (0.465-4.680)
[2016-11-21] MEDS ORDERED: IPRATROPIUM (NEB) 0.5 MG/2.5 ML AMP HHN PRN (08:30)
[2016-11-21] MEDS: ASPIRIN 81 MG TAB PO SCH (09:23)
[2016-11-21] MEDS: FAMOTIDINE 20 MG TAB PO SCH (09:23)
--- NOTE | 2016-11-21 10:31 | PN ---
DATE: 11/21/2016 CARDIOLOGY FOLLOWUP SUBJECTIVE: Discussed with the staff. Rhythm strip was reviewed. The patient remains in sinus rhy thm. No more episodes of atrial fibrillation. Still complaining of shortness of breath. Had thora centesis and a liter of fluid was removed in fact yesterday. MEDICATIONS: Reviewed. PHYSICAL EXAMINATION: VITAL SIGNS: Temperature 98.8, heart rate of 67, blood pressure 103/62, respiration rate of 18, sat urating 94 to 97%. HEENT: Normocephalic, atraumatic. Pupils are equal. CARDIOVASCULAR: Regular rate and rhythm, systolic murmur. PULMONARY: With diffuse wheezes now heard. GASTROINTESTINAL: Soft, nontender. EXTREMITIES: With positive lower extremity edema. NEUROLOGIC: Awake and alert. PSYCHIATRIC: Appeared to be calm. LABORATORY: WBC of 11.4, hemoglobin 8.8, platelet 183. Sodium 143, potassium 5.1, BUN of 61, creat inine of 2.76, glucose of 102. ProBNP of 10,600. TSH 2.2. Chest x-ray showed ultrasound thoracentesis was done successfully. A liter of fluid was removed. C hest x-ray shows no pneumothorax following right thoracentesis, small left pleural effusion, slightl y larger than previously seen. ASSESSMENT AND PLAN: 1. Congestive heart failure, acute on chronic, secondary to systolic dysfunction. 2. Moderate to severe cardiomyopathy, ejection fraction of 35%. 3. Pleural effusion, status post thoracentesis. 4. Possible reactive airway disease and wheezing now. 5. History of gastric and colon cancer. 6. Renal insufficiency, acute on chronic. 7. Hyperkalemia. 8. Paroxysmal atrial fibrillation, currently in sinus. 9. History of alcohol abuse in the past. 10. Anemia. RECOMMENDATIONS: EMMIE inhibitor is on hold due to his acute renal failure. Aspirin will be continue d. Statin will be continued. Continue with the Coreg as tolerated. I will have to decrease the do lana so that she can actually tolerate the doses. Will start the patient on inhalers as needed. We will continue to monitor on telemetry. Follow the renal function. Consider renal consultation as well. Dictated By: COLIN BERGERON MD AV/LANG Conf#: [id number] DID#: [id number] CC: AZRA GUPTA MD;*EndCC*
--- NOTE | 2016-11-21 10:36 | PN ---
Date/Time of Note Date/Time of Note DATE: 11/21/16 TIME: 09:57 Assessment/Plan VTE Prophylaxis VTE Prophylaxis Intervention: contraindicated VTE Contraindication Reason: blood coagulation disorder Lines/Catheters [facility] Saline Lock Urinary Cath still in place: No Assessment/Plan Assessment/Plan 1. Shortness of breath, secondary to large pleural effusion. - thoracentesis today -looks infectious in nature- will defer to pulm, appreciate pulm c/s 2. Chest pain - pleuritic in nature - most likely secondary to above. 3. Abdominal distention, from ascites, likely secondary to alcoholic liver disease - monitor acute changes, abd x-ray negative 4. Cardiomyopathy with systolic dysfunction -EF 35% , Stage III/IV diastolic dysfunction, strict I/O's 5. Chronic kidney disease - renally adjust medications, avoid nephrotoxins 6. Hyperkalemia - if > 5.5 - kayexlate - will give 15 mg po today 7. Atrial fibrillation, rate controlled and in sinus. - hold anticoagulation - 2/2 to coagulopathy 8. Coagulopathy - will check hepatitis panel - most likely chronic liver disease 9. Gastric and colon cancer status post surgery and chemo. 10. Alcohol abuse - monitor labs 11. Megaloblastic anemia, most likely secondary to anemia of chronic disease. - check folate/vitb12 12. GI ppx - protonix 13. DVT ppx - scds dispo - f/u labs, f/u cytology of pleural fluid - hold off on antibiotics until culture grows this progress note took greater than 30 minutes to complete Subjective 24 Hr Interval Summary Free Text/Dictation Patient is doing better after the thoracentesis. Discussed with the nurse and the patient the care plan. 15 minutes spent. Exam/Review of Systems Vital Signs Vitals Vital Signs Date Time Temp Pulse Resp B/P Pulse Ox O2 Delivery O2 Flow Rate FiO2 11/21/16 09:04 69 11/21/16 08:18 18 94 Nasal Cannula 2.0 11/21/16 04:00 98.8 103/62 Intake and Output 11/20/16 11/20/16 11/21/16 15:00 23:00 07:00 Intake Total 970 ml 300 ml Output Total 800 ml 300 ml Balance 170 ml 0 ml Exam Gen Ana: mild shortness of breath, AAOx4 HEENT: NC/AT, PERRLA, EOMI, no pharyngeal erythema, no tonsillar exudates, no lymphadenopathy, no JVD, no carotid bruits NECK: supple, no thyromegaly THORAX: symmetrical, no obvious deformities CV: S1S2, RRR, no M/G/R Lungs: right diminished breath sounds, left scattered rhonchi, crackles - no overt wheezing - scattered rhonchi Abd: soft, NT/ND, +BS, no rebound, no guarding, neg HSM EXT: no edema, no ecchymosis, no clubbing, FROM Neuro: CN II-XII grossly intact, no focal deficits Psych: fair mood and affect Skin: C/D/I Results Result Diagram: 11/21/16 0715 11/21/16 0715 Results 24 hrs Laboratory Tests Test 11/20/16 12:03 11/20/16 14:40 11/20/16 17:06 11/20/16 20:53 Bedside Glucose 147 102 138 Body Fluid Appearance HAZY Body Fluid Color YELLOW Body Fluid Lactate Dehydrogenase 242 Body Fluid Lymphocytes (%) 52 Body Fluid Monocytes % 14 Body Fluid Neutrophils % 34 Body Fluid Other Cells (%) Body Fluid RBC 3+ Body Fluid Total Protein 4.6 Body Fluid Type PLEURAL Body Fluid Volume 1000.0 Body Fluid WBC 36 Test 11/21/16 07:15 11/21/16 07:48 Alanine Aminotransferase (ALT/SGPT) 35 Albumin 3.5 Albumin/Globulin Ratio 0.85 Alkaline Phosphatase 202 H Anion Gap 20 H Aspartate Amino Transf (AST/SGOT) 24 B-Type Natriuretic Peptide 15481 H Basophils # 0.0 Basophils % 0.5 Blood Morphology Comment Blood Urea Nitrogen 61 H Calcium Level 8.5 Carbon Dioxide Level 24 Chloride Level 104 Creatinine 2.76 H Direct Bilirubin 0.00 Eosinophils # 0.1 Eosinophils % 0.7 Free Thyroxine 2.13 Globulin 4.10 H Glucose Level 102 Hematocrit 26.5 L Hemoglobin 8.8 L Indirect Bilirubin 0.7 Lymphocytes # 1.4 Lymphocytes % 18.8 Magnesium Level 2.3 Mean Corpuscular Hemoglobin 31.2 Mean Corpuscular Hemoglobin Concent 33.1 Mean Corpuscular Volume 94.4 Mean Platelet Volume 9.5 Monocytes # 0.6 Monocytes % 7.9 Neutrophils # 5.4 Neutrophils % 72.1 Nucleated Red Blood Cells # 0.0 Nucleated Red Blood Cells % 0.0 Platelet Count 183 Potassium Level 5.1 Red Blood Count 2.81 L Red Cell Distribution Width 21.2 H Sodium Level 143 Thyroid Stimulating Hormone (TSH) 2.290 Total Bilirubin 0.7 Total Protein 7.6 White Blood Count 7.4 Bedside Glucose 108 Medications Medications Current Medications Diagnostic Test (Pha) (Accucheck) 1 ea 02 XX Last administered on 11/19/16 02 :12; Admin Dose 1 EA; Start 11/19/16 at 02:00 Acetaminophen (Tylenol Tab) 650 mg Q6H PRN PO PAIN AND OR ELEVATED TEMP; Start 11/19/16 at 01:00 Ondansetron HCl (Zofran Inj) 4 mg Q6H PRN IV NAUSEA AND/OR VOMITING Last administered on 11/19/16 03:35; Admin Dose 4 MG; Start 11/19/16 at 01:00 Aspirin (Aspirin) 81 mg DAILY PO Last administered on 11/21/16 09:23; Admin Dose 81 MG; Start 11/19/16 at 09:00 Atorvastatin Calcium (Lipitor) 40 mg HS PO Last administered on 11/20/16 20: 45; Admin Dose 40 MG; Start 11/19/16 at 21:00 Benazepril HCl (Lotensin) 20 mg DAILY PO Last administered on 11/19/16 09:03 ; Admin Dose 20 MG; Start 11/19/16 at 09:00; Status Future Hold Famotidine (Pepcid) 20 mg DAILY PO Last administered on 11/21/16 09:23; Admin Dose 20 MG; Start 11/19/16 at 09:00 Morphine Sulfate 3 mg 3 mg Q4H PRN IV PAIN Last administered on 11/20/16 17: 52; Admin Dose 3 MG; Start 11/19/16 at 01:30 Ondansetron HCl/ Dextrose (Zofran Inj/D5W) 54 ml @ 108 mls/hr Q6H IV Last administered on 11/21/16 05:44; Admin Dose 108 MLS/HR; Start 11/19/16 at 05: 00 Metoclopramide HCl (Reglan) 10 mg Q6H PRN IV VOMITTING Last administered on 05:21; Admin Dose 10 MG; Start 11/19/16 at 05:00 Furosemide (Lasix) 20 mg DAILY@06 IV Last administered on 12/28/16at 05:44; Admin Dose 20 MG; Start 11/19/16 at 06:00 Miscellaneous Information 1 ea NOTE XX ; Start 11/20/16 at 07:30 Glucose (Glutose) 15 gm Q15M PRN PO DECREASED GLUCOSE; Start 11/20/16 at 07:30 Glucose (Glutose) 22.5 gm Q15M PRN PO DECREASED GLUCOSE; Start 11/20/16 at 07: 30 Dextrose (D50w Syringe) 25 ml Q15M PRN IV DECREASED GLUCOSE; Start 11/20/16 at 07:30 Dextrose (D50w Syringe) 50 ml Q15M PRN IV DECREASED GLUCOSE; Start 11/20/16 at 07:30 Glucagon (Glucagen) 1 mg Q15M PRN IM DECREASED GLUCOSE; Start 11/20/16 at 07: 30 Glucose (Glutose) 15 gm Q15M PRN BUCCAL DECREASED GLUCOSE; Start 11/20/16 at 07:30 Carvedilol (Coreg) 3.125 mg BID PO Last administered on 11/21/16at 09:23; Admin Dose 3.125 MG; Start 11/21/16 at 09:00 Procedures Procedures ECHO Conclusions 1. Normal left ventricular cavity size. Normal left ventricular wall thickness. Moderate left ventricular systolic dysfunction. Ejection fraction is visually estimated at 35 %. Tissue Doppler/Mitral Doppler indices are consistent with restrictive physiology with markedly elevated left atrial pressure (Stage III-IV diastolic dysfunction). Multiple segmental wall motion abnormalities. 2. There is mild enlargement of left atrium. 3. Mitral valve leaflets appear mildly thickened. Mild mitral annular calcification. Mild mitral valve regurgitation. 4. No hemodynamically significant aortic stenosis by doppler. Aortic cusps appear mildly calcified. Trace aortic valve regurgitation. 5. Estimated peak PA systolic pressure 55 mmHg. Tricuspid valve appears mildly thickened. There is moderate to severe tricuspid regurgitation. 6. Dilated IVC without respiratory collapse consistent with elevated right atrial pressure. AZRA GUPTA MD Nov 21, 2016 10:36
[2016-11-21 10:43] LABS: HAAIG REFLEX REFLEX FILED
[2016-11-21 11:42] LABS: HEPATITIS B CORE ANTIBODY REACTIVE (NEGATIVE)
[2016-11-21 12:04] LABS: FOLATE 18.3 ng/ml (2.8-20.0)
--- NOTE | 2016-11-21 15:30 | CONS ---
Date/Time of Note Date/Time of Note DATE: 11/21/16 TIME: 15:25 Consult Date/Type/Reason Admit Date/Time Nov 18, 2016 at 20:54 Initial Consult Date Type of Consultation: pulmonary Subjective Patient has mild shortness of breath on exertion Recent chest x-ray shows persistent loculated pleural effusions No hemoptysis fever chills Objective Vital Signs Date Time Temp Pulse Resp B/P Pulse Ox O2 Delivery O2 Flow Rate FiO2 11/21/16 12:28 65 11/21/16 08:18 18 94 Nasal Cannula 2.0 11/21/16 08:00 98.8 109/59 Intake and Output 11/20/16 11/20/16 11/21/16 15:00 23:00 07:00 Intake Total 970 ml 300 ml Output Total 800 ml 300 ml Balance 170 ml 0 ml GENERAL: VITAL SIGNS: per chart NECK: Supple. No JVD or lymphadenopathy. CARDIAC EXAM: S1, S2. No added sounds or murmurs. CHEST: Diminished air entry right lung ABDOMEN: Soft, nontender. No guarding or rebound. EXTREMITIES: No cyanosis, clubbing or edema. NEUROLOGIC: Generalized weakness. No focal deficits. Results/Medications Result Diagram: 11/21/16 0715 11/21/16 0715 Results 24 hrs Laboratory Tests Test 11/20/16 17:06 11/20/16 20:53 11/21/16 07:15 11/21/16 07:48 Bedside Glucose 102 138 108 Alanine Aminotransferase (ALT/SGPT) 35 Albumin 3.5 Albumin/Globulin Ratio 0.85 Alkaline Phosphatase 202 H Anion Gap 20 H Aspartate Amino Transf (AST/SGOT) 24 B-Type Natriuretic Peptide 03799 H Basophils # 0.0 Basophils % 0.5 Blood Morphology Comment Blood Urea Nitrogen 61 H Calcium Level 8.5 Carbon Dioxide Level 24 Chloride Level 104 Creatinine 2.76 H Direct Bilirubin 0.00 Eosinophils # 0.1 Eosinophils % 0.7 Folate 18.3 Free Thyroxine 2.13 Globulin 4.10 H Glucose Level 102 Hematocrit 26.5 L Hemoglobin 8.8 L Hepatitis B Core Total Antibody REACTIVE H Hepatitis B Surface Antigen NEGATIVE Hepatitis C Antibody NEGATIVE Indirect Bilirubin 0.7 Lymphocytes # 1.4 Lymphocytes % 18.8 Magnesium Level 2.3 Mean Corpuscular Hemoglobin 31.2 Mean Corpuscular Hemoglobin Concent 33.1 Mean Corpuscular Volume 94.4 Mean Platelet Volume 9.5 Monocytes # 0.6 Monocytes % 7.9 Neutrophils # 5.4 Neutrophils % 72.1 Nucleated Red Blood Cells # 0.0 Nucleated Red Blood Cells % 0.0 Platelet Count 183 Potassium Level 5.1 Red Blood Count 2.81 L Red Cell Distribution Width 21.2 H Sodium Level 143 Thyroid Stimulating Hormone (TSH) 2.290 Total Bilirubin 0.7 Total Protein 7.6 Vitamin B12 Level 994 H White Blood Count 7.4 Test 11/21/16 11:54 Bedside Glucose 134 Medications Current Medications Diagnostic Test (Pha) (Accucheck) 1 ea 02 XX Last administered on 11/19/16at 02 :12; Admin Dose 1 EA; Start 11/19/16 at 02:00 Acetaminophen (Tylenol Tab) 650 mg Q6H PRN PO PAIN AND OR ELEVATED TEMP; Start 11/19/16 at 01:00 Ondansetron HCl (Zofran Inj) 4 mg Q6H PRN IV NAUSEA AND/OR VOMITING Last administered on 11/19/16at 03:35; Admin Dose 4 MG; Start 11/19/16 at 01:00 Aspirin (Aspirin) 81 mg DAILY PO Last administered on 11/21/16 09:23; Admin Dose 81 MG; Start 11/19/16 at 09:00 Atorvastatin Calcium (Lipitor) 40 mg HS PO Last administered on 11/20/16at 20: 45; Admin Dose 40 MG; Start 11/19/16 at 21:00 Benazepril HCl (Lotensin) 20 mg DAILY PO Last administered on 11/19/16 09:03 ; Admin Dose 20 MG; Start 11/19/16 at 09:00; Status Future Hold Famotidine (Pepcid) 20 mg DAILY PO Last administered on 11/21/16 09:23; Admin Dose 20 MG; Start 11/19/16 at 09:00 Morphine Sulfate (morphine) 3 mg Q4H PRN IV PAIN Last administered on 17:52; Admin Dose 3 MG; Start 11/19/16 at 01:30 Metoclopramide HCl (Reglan) 10 mg Q6H PRN IV VOMITTING Last administered on 05:21; Admin Dose 10 MG; Start 11/19/16 at 05:00 Furosemide (Lasix) 20 mg DAILY@06 IV Last administered on 11/21/16at 05:44; Admin Dose 20 MG; Start 11/19/16 at 06:00 Miscellaneous Information 1 ea NOTE XX ; Start 11/20/16 at 07:30 Glucose (Glutose) 15 gm Q15M PRN PO DECREASED GLUCOSE; Start 11/20/16 at 07:30 Glucose (Glutose) 22.5 gm Q15M PRN PO DECREASED GLUCOSE; Start 11/20/16 at 07: 30 Dextrose (D50w Syringe) 25 ml Q15M PRN IV DECREASED GLUCOSE; Start 11/20/16 at 07:30 Dextrose (D50w Syringe) 50 ml Q15M PRN IV DECREASED GLUCOSE; Start 11/20/16 at 07:30 Glucagon (Glucagen) 1 mg Q15M PRN IM DECREASED GLUCOSE; Start 11/20/16 at 07: 30 Glucose (Glutose) 15 gm Q15M PRN BUCCAL DECREASED GLUCOSE; Start 11/20/16 at 07:30 Carvedilol (Coreg) 3.125 mg BID PO Last administered on 11/21/16at 09:23; Admin Dose 3.125 MG; Start 11/21/16 at 09:00 Assessment/Plan Chief Complaint/Hosp Course Assessment 1. Loculated right pleural effusion exudative in nature 2. Renal insufficiency 3. Anemia questionable of chronic disease Recommendations 1. Thoracic surgery evaluation for video-assisted thoracic decortication 2. Consider correction of anemia preoperatively 3. Renal recommendations 4. DVT and GI prophylaxis Problems: JACQUELIN MANUEL MD, [facility] Nov 21, 2016 15:30
--- NOTE | 2016-11-21 16:34 | RADRPT ---
PROCEDURE: US Abdomen limited . CLINICAL INDICATION: Ascites TECHNIQUE: Multiple real-time images were acquired of the patient's abdomen utilizing a high resol ution transducer. COMPARISON: 11/20/2016 FINDINGS: There is a small amount of ascites. There are large bilateral pleural effusions. RPTAT: AA IMPRESSION: Small amount of ascites. Large bilateral pleural effusions. .Beto Mccarty MD, MD Date Time Electronically viewed and signed by .Beto Mccarty MD, on 11/21/2016 16:34 .S/
--- NOTE | 2016-11-21 20:32 | CONS ---
DATE OF ADMISSION: 11/18/2016 DATE OF CONSULTATION: REASON FOR CONSULTATION: Pleural effusions. HISTORY OF PRESENT ILLNESS: This is a 66-year-old male admitted because of respiratory failure, car diomyopathy, ejection fraction 35%. Chest CT was done 3 days ago which showed large right and small left pleural effusion. Subsequently the patient had thoracentesis. Repeat chest x-ray has shown s mall left-sided pleural effusion slightly larger than the right. PAST MEDICAL HISTORY: Significant for hypertension, hyperlipidemia. PAST SURGICAL HISTORY: None. ALLERGIES: NONE. SOCIAL HISTORY: No smoking, drinking or drug use. MEDICATIONS: List reviewed which includes: 1. Lipitor. 2. ____. 3. Aldactone. 4. Aspirin. 5. Lasix. 6. Pepcid. 7. Glipizide. 8. Prednisone. 9. Coreg. ALLERGIES: NO KNOWN DRUG ALLERGIES. SOCIAL HISTORY: No smoking, drinking or drug use. REVIEW OF SYSTEMS: Negative. PHYSICAL EXAMINATION: VITAL SIGNS: Blood pressure is 95/56, pulse is 64, respirations 20, saturation is 100% on 2 L of ox ygen. HEENT: Normocephalic, atraumatic. PERRLA. NECK: Supple. No JVD, no carotid bruits. CARDIOVASCULAR: Regular rate and rhythm. Normal S1, S2. LUNGS: Diminished breath sounds at the bases. ABDOMEN: Soft, nontender, nondistended. EXTREMITIES: Warm. No clubbing, cyanosis or edema. LABORATORY VALUES: Hemoglobin 8.8, white count 7.4, platelet count 183. INR 1.47. IMPRESSION: Recurrent pleural effusion, no signs of carcinoma. The patient has a loculated right-s ided effusion. Would monitor the effusion, but patient will probably need right video-assisted thoracic surgery, de cortication after cardiology clearance. Dictated By: DIEGO LOPEZ/LANG Conf#: [id number] DID#: [id number]
[2016-11-21] MEDS: ATORVASTATIN 40 MG TAB PO SCH (20:37)
[2016-11-22] VITALS (14 sets, daily range): BP systolic 96–111; BP diastolic 52–61; PULSE 58–64; RESP 18–20
[2016-11-22] MEDS: ALBUTEROL/IPRATROPIUM (NEB) 3 ML AMP HHN SCH ×6 (00:48→20:57)
[2016-11-22] MEDS: ACCUCHECK XX SCH (02:00)
[2016-11-22] MEDS: FUROSEMIDE 20 MG INJ IV SCH (05:50)
[2016-11-22 06:50] LABS: BASOPHILS % 0.5 % (0.0-2.0); EOSINOPHILS # 0.1 10^3/ul (0.0-0.5); EOSINOPHILS % 1.2 % (0.0-7.0); HEMATOCRIT 26.3 % (42.0-52.0); HEMOGLOBIN 8.9 g/dl (14.0-18.0); LYMPHOCYTES # 1.3 10^3/ul (0.8-2.9); LYMPHOCYTES % 20.3 % (15.0-51.0); MEAN CORPUSCULAR HGB CONC 33.8 g/dl (32.0-37.0); MEAN CORPUSCULAR VOLUME 97.6 fl (82.0-101.0); MEAN PLATELET VOLUME 9.3 fl (7.4-10.4); MONOCYTE # 0.5 10^3/ul (0.3-0.9); MONOCYTES % 8.1 % (0.0-11.0); NEUTROPHIL # 4.4 10^3/ul (1.6-7.5); NEUTROPHILS % 69.9 % (39.0-77.0); PLATELET COUNT 162 10^3/UL (140-440); RED BLOOD COUNT 2.69 10^6/ul (4.70-6.10); UNCORRECTED WBC 6.2 10^3/ul (4.8-10.8); WHITE BLOOD COUNT 6.2 10^3/ul (4.8-10.8)
[2016-11-22 06:56] LABS: CREATININE 2.95 mg/dl (0.61-1.24)
[2016-11-22 06:57] LABS: CALCIUM 8.3 mg/dl (8.4-10.2)
[2016-11-22 07:02] LABS: CONDITION 1; LH ANALYZER COMMENTS 1
[2016-11-22] MEDS: INSULIN ASPART [NOVOLOG] 3 ML PEN SC SCH ×4 (07:55→21:00)
[2016-11-22] MEDS: FAMOTIDINE 20 MG TAB PO SCH (09:41)
[2016-11-22] MEDS: ASPIRIN 81 MG TAB PO SCH (09:43)
--- NOTE | 2016-11-22 10:36 | RADRPT ---
PROCEDURE: XR Chest. CLINICAL INDICATION: Cough TECHNIQUE: Chest AP portable. COMPARISON: 11/20/2016 FINDINGS: The mediastinal structures are unremarkable. There is calcification of the thoracic aorta (consiste nt with atherosclerosis). There is moderate cardiac enlargement. There is pulmonary venous hyperte nsion. There is bibasilar subsegmental atelectasis/patchy consolidations. There is a small to mode rate-sized right pleural effusion. There is a small left pleural effusion. The osseous structures are unremarkable. IMPRESSION: Moderate cardiac enlargement. Mild pulmonary venous hypertension. RLL and LLL patchy consolidation / subsegmental atelectasis. Small to moderate-sized right pleural effusion. Small left pleural effusion RPTAT: HGDB .Allen Xie MD, MD Date Time Electronically viewed and signed by .Allen Xie MD, on 11/22/2016 10:35 .B/
--- NOTE | 2016-11-22 11:09 | PN ---
DATE: 11/22/2016 CARDIOLOGY FOLLOWUP SUBJECTIVE: Discussed with the staff. Rhythm strip was reviewed. The patient still complains of shortness of breath. No chest pain or pressure. No palpitation. The patient remains in sinus rhyt . MEDICATIONS: Reviewed. PHYSICAL EXAMINATION: VITAL SIGNS: Temperature 97.9, heart rate 64, blood pressure 90/52, respiration rate 18, saturating 98%. HEENT: Normocephalic, atraumatic. Pupils are equal. CARDIOVASCULAR: Regular rate and rhythm. PULMONARY: With rhonchi bilaterally. GASTROINTESTINAL: Soft, nontender. EXTREMITIES: Positive diffuse lower extremity edema. NEUROLOGIC: Awake and alert. PSYCHIATRIC: Appeared to be calm. LABORATORY: WBC of 6.2, hemoglobin 8.9, platelets of 162. Sodium 143, potassium 5, BUN of 67, crea tinine 2.95, glucose 117. ASSESSMENT AND PLAN: 1. Recurrent pleural effusion. 2. Congestive heart failure. 3. Cardiomyopathy. 4. Anemia. 5. Renal failure, acute on chronic. 5. Question of coronary artery disease. 6. Severe cardiomyopathy. RECOMMENDATIONS: We will continue with the current cardiac care. Consider renal consultation. Luciana betic management as per internal medicine. Diuresis will be continued as tolerated. [facility] I will order repeat chest x-ray for today as well. Dictated By: COLIN BERGERON MD AV/LANG Conf#: [id number] DID#: [id number] CC: AZRA GUPTA MD;*EndCC*
--- NOTE | 2016-11-22 11:12 | PN ---
Date/Time of Note Date/Time of Note DATE: 11/22/16 TIME: 11:05 Assessment/Plan VTE Prophylaxis VTE Prophylaxis Intervention: contraindicated, SCD's VTE Contraindication Reason: bleeding Lines/Catheters IV [facility] Saline Lock Urinary Cath still in place: No (Condom Cath) Assessment/Plan Assessment/Plan 1. Shortness of breath, secondary to large pleural effusion. - thoracentesis today -looks infectious in nature- will defer to pulm, appreciate pulm c/s - with hemoptysis - sequlae of strep pneumo vs overt heart failure - send out for sputum cultures 2. Chest pain - pleuritic in nature - most likely secondary to above. 3. Abdominal distention, from ascites, likely secondary to alcoholic liver disease - monitor acute changes, abd x-ray negative - US minimal ascites 4. Cardiomyopathy with systolic dysfunction -EF 35% , Stage III/IV diastolic dysfunction, strict I/O's, diuresis 5. Chronic kidney disease - renally adjust medications, avoid nephrotoxins - Hepatorenal with cardio renal - if worsening - possible dialysis - appreciate nephro consult 6. Hyperkalemia - if > 5.5 - kayexlate - will give 15 mg po today 7. Atrial fibrillation, rate controlled and in sinus. - hold anticoagulation - 2/2 to coagulopathy 8. Coagulopathy - will check hepatitis panel - most likely chronic liver disease 9. Gastric and colon cancer status post surgery and chemo. 10. Alcohol abuse - monitor labs 11. Megaloblastic anemia, most likely secondary to anemia of chronic disease. - check folate/vitb12 12. GI ppx - protonix 13. DVT ppx - scds dispo - f/u labs, f/u cytology of pleural fluid - hold off on antibiotics until culture grows this progress note took greater than 50 minutes to complete Subjective 24 Hr Interval Summary Free Text/Dictation Patient is having difficulty with sleeping. I had spoke to the patient, the family members at bedside, about the care plan. They understand that the patient is at a critical juncture in his prognosis and care. He has a lot of high risks to undergo for the VATS/Decortication. He needs to be cleared from a cardiac standpoint prior to any procedures. They also understand that he has a lot of different things to take into account when it comes to life expectancy, such as cardiac/liver/renal functions. 30 minutes in Yi spent about the care plan. Exam/Review of Systems Vital Signs Vitals Vital Signs Date Time Temp Pulse Resp B/P Pulse Ox O2 Delivery O2 Flow Rate FiO2 11/22/16 10:32 95 2.0 11/22/16 10:32 65 18 Nasal Cannula 11/22/16 07:57 97.9 98/52 Intake and Output 11/21/16 11/21/16 11/22/16 15:00 23:00 07:00 Intake Total 1920 ml 300 ml Output Total 1000 ml 550 ml Balance 920 ml -250 ml Exam Gen Ana: mild shortness of breath, AAOx4 HEENT: NC/AT, PERRLA, EOMI, no pharyngeal erythema, no tonsillar exudates, no lymphadenopathy, no JVD, no carotid bruits NECK: supple, no thyromegaly THORAX: symmetrical, no obvious deformities CV: S1S2, RRR, no M/G/R Lungs: right diminished breath sounds, left scattered rhonchi, crackles - no overt wheezing - scattered rhonchi - worsening Abd: soft, NT/ND, +BS, no rebound, no guarding, neg HSM EXT: no edema, no ecchymosis, no clubbing, FROM Neuro: CN II-XII grossly intact, no focal deficits Psych: fair mood and affect Skin: C/D/I Results Result Diagram: 11/22/16 0635 11/22/16 0635 Results 24 hrs Laboratory Tests Test 11/21/16 11:54 11/21/16 17:48 11/21/16 20:34 11/22/16 06:35 Bedside Glucose 134 120 126 Anion Gap 18 H Basophils # 0.0 Basophils % 0.5 Blood Morphology Comment Blood Urea Nitrogen 67 H Calcium Level 8.3 L Carbon Dioxide Level 24 Chloride Level 106 Creatinine 2.95 H Eosinophils # 0.1 Eosinophils % 1.2 Glucose Level 117 Hematocrit 26.3 L Hemoglobin 8.9 L Lymphocytes # 1.3 Lymphocytes % 20.3 Mean Corpuscular Hemoglobin 33.0 Mean Corpuscular Hemoglobin Concent 33.8 Mean Corpuscular Volume 97.6 Mean Platelet Volume 9.3 Monocytes # 0.5 Monocytes % 8.1 Neutrophils # 4.4 Neutrophils % 69.9 Nucleated Red Blood Cells # 0.0 Nucleated Red Blood Cells % 0.0 Platelet Count 162 Potassium Level 5.0 Red Blood Count 2.69 L Red Cell Distribution Width 21.0 H Sodium Level 143 White Blood Count 6.2 Test 11/22/16 08:06 Bedside Glucose 108 Medications Medications Current Medications Diagnostic Test (Pha) (Accucheck) 1 ea 02 XX Last administered on 11/19/16at 02 :12; Admin Dose 1 EA; Start 11/19/16 at 02:00 Acetaminophen (Tylenol Tab) 650 mg Q6H PRN PO PAIN AND OR ELEVATED TEMP; Start 11/19/16 at 01:00 Ondansetron HCl (Zofran Inj) 4 mg Q6H PRN IV NAUSEA AND/OR VOMITING Last administered on 11/19/16at 03:35; Admin Dose 4 MG; Start 11/19/16 at 01:00 Aspirin (Aspirin) 81 mg DAILY PO Last administered on 11/22/16at 09:43; Admin Dose 81 MG; Start 11/19/16 at 09:00 Atorvastatin Calcium (Lipitor) 40 mg HS PO Last administered on 11/21/16at 20: 37; Admin Dose 40 MG; Start 11/19/16 at 21:00 Benazepril HCl (Lotensin) 20 mg DAILY PO Last administered on 11/19/16at 09:03 ; Admin Dose 20 MG; Start 11/19/16 at 09:00; Status Future Hold Famotidine (Pepcid) 20 mg DAILY PO Last administered on 11/22/16at 09:41; Admin Dose 20 MG; Start 11/19/16 at 09:00 Morphine Sulfate (morphine) 3 mg Q4H PRN IV PAIN Last administered on at 17:52; Admin Dose 3 MG; Start 11/19/16 at 01:30 Metoclopramide HCl (Reglan) 10 mg Q6H PRN IV VOMITTING Last administered on at 05:21; Admin Dose 10 MG; Start 11/19/16 at 05:00 Furosemide (Lasix) 20 mg DAILY@06 IV Last administered on 11/22/16at 05:50; Admin Dose 20 MG; Start 11/19/16 at 06:00 Miscellaneous Information 1 ea NOTE XX ; Start 11/20/16 at 07:30 Glucose (Glutose) 15 gm Q15M PRN PO DECREASED GLUCOSE; Start 11/20/16 at 07:30 Glucose (Glutose) 22.5 gm Q15M PRN PO DECREASED GLUCOSE; Start 11/20/16 at 07: 30 Dextrose (D50w Syringe) 25 ml Q15M PRN IV DECREASED GLUCOSE; Start 11/20/16 at 07:30 Dextrose (D50w Syringe) 50 ml Q15M PRN IV DECREASED GLUCOSE; Start 11/20/16 at 07:30 Glucagon (Glucagen) 1 mg Q15M PRN IM DECREASED GLUCOSE; Start 11/20/16 at 07: 30 Glucose (Glutose) 15 gm Q15M PRN BUCCAL DECREASED GLUCOSE; Start 11/20/16 at 07:30 Carvedilol (Coreg) 3.125 mg BID PO Last administered on 11/22/16at 09:43; Admin Dose 3.125 MG; Start 11/21/16 at 09:00 AZRA GUPTA MD Nov 22, 2016 11:12
--- NOTE | 2016-11-22 11:49 | RADRPT ---
PROCEDURE: XR Chest. CLINICAL INDICATION: Shortness of breath. Pleural effusion. TECHNIQUE: Single frontal view. COMPARISON: 11/22/2016. 0015 hours. FINDINGS: There is atelectasis at the lung bases with right worse than left. There is a large right pleural e ffusion which is partially loculated laterally. There is a small left basilar pleural effusion. The heart is enlarged. There is calcification in the aorta consistent with atherosclerosis. There is no pneumothorax. IMPRESSION: 1. No change from the prior study done earlier the same day. RPTAT: QQ .Adrian Sosa MD, MD Date Time Electronically viewed and signed by .Adrian Sosa MD, MD on 11/22/2016 11:49 .R/
--- NOTE | 2016-11-22 11:56 | RADRPT ---
PROCEDURE: Renal US. CLINICAL INDICATION: Acute kidney injury. TECHNIQUE: Multiple sonographic images of the kidneys and urinary bladder were obtained. The imag es were reviewed on a PACS workstation. COMPARISON: No prior studies are available for comparison. FINDINGS: The right kidney measures 10.6 x 5.1 cm. The left kidney measures 10.3 x 5.6 cm. There is no renal mass. There is no hydronephrosis. There is no renal calculus. Renal parenchymal thickness is normal. Both kidneys are hyperechoic consistent with medical renal d isease. The perirenal regions are normal with no fluid collection or mass. The urinary bladder is unremarkable with no mass or calculus. There is moderate ascites. There are bilateral pleural effusions. IMPRESSION: 1. Bilateral hyperechoic kidneys consistent with medical renal disease. 2. Moderate ascites. 3. Bilateral pleural effusions. RPTAT: QQ .Adrian Sosa MD, MD Date Time Electronically viewed and signed by .Adrian Sosa MD, MD on 11/22/2016 11:55 .R/
--- NOTE | 2016-11-22 12:30 | CONS ---
DATE OF ADMISSION: 11/18/2016 DATE OF CONSULTATION: 11/22/2016 TYPE OF CONSULTATION: Nephrology. REASON FOR CONSULTATION: Acute kidney injury. REQUESTING PHYSICIAN: Dr. Macias HISTORY OF PRESENT ILLNESS: This is a 66-year-old male with a past medical history of CKD stage III B/IV, with a baseline creatinine around 1.6 to 2 mg/dL, history of CHF, cardiomyopathy with ejection fraction of 35%, history of AFib, dyslipidemia, diabetes, previous history of gastric and colon can cer, who presents to [facility] with worsening shortness of breath. The patient s tates over the last several days he noted to have increased dyspnea on exertion, shortness of breath , lower extremity swelling, abdominal distention, and as a result came into the emergency room for e valuation. Upon arrival, the patient had a chest x-ray and CT scan of his chest which showed large pleural effusions with atelectasis. The patient in the emergency room was diagnosed with CHF jp douglass. He was started on diuretic therapy and admitted to telemetry for continued care. While on telemetry, the patient has been diuresing adequately with 1 to 2 liters of urine output daily. The patient also had a thoracentesis which removed 1 liter of serous fluid. An abdominal ultrasound was also obtained, which showed small amount of ascites. While on telemetry, the patient has been rece iving diuretic therapy. He also had a thoracentesis performed. In terms of the patient's renal function, the patient has underlying CKD with a previous baseline cr eatinine around 1.6 to 2 mg/dL. The patient upon arrival to the emergency room had a creatinine of 1.9 mg/dL. During the course of diuretic therapy, the patient's creatinine has increased to 2.95 m g/dL. The patient during this time has had no contrast exposure. The patient has been on EMMIE inhib itor and has been receiving diuretics and there has been also noted hemodynamic fluctuations. There has been no frothy urine. No rashes. No hemoptysis, hematochezia. PAST MEDICAL HISTORY: As stated above, history of CHF, history of CKD stage IIIB/IV, history of [place], history of hypertension, history of AFib, history of colon and gastric CA. PAST SURGICAL HISTORY: Positive for surgery for gastric and colon cancer. SOCIAL HISTORY: Does not drink, smoke or do drugs. FAMILY HISTORY: Noncontributory. MEDICATIONS: The patient's medications have been reviewed. ALLERGIES: NO KNOWN DRUG ALLERGIES. PHYSICAL EXAMINATION: VITAL SIGNS: Blood pressure is currently 100/87, heart rate is 62, respirations 20, temperature 98. 6. HEENT: Head is normocephalic. Pupils are reactive to light. NECK: Supple. HEART: Regular rate. LUNGS: Show diminished breath sounds at base. ABDOMEN: Soft, nontender to palpation without rebound or guarding. EXTREMITIES: Negative for clubbing, cyanosis. Positive edema. DERMATOLOGIC: No rashes. MUSCULOSKELETAL: No joint effusions. NEUROLOGIC: No focal deficits. LABORATORY DATA: Shows sodium 143, potassium 5.0, chloride 106, BUN 67, creatinine 2.95. White cou nt 6.3, hemoglobin 8.9, hematocrit 26.3, platelet count is 162. ASSESSMENT AND PLAN: This is a 66-year-old male who presents with: 1. Nonoliguric acute kidney injury on top of chronic kidney disease stage IIIB/IV with a baseline c reatinine of 1.5 to 2 mg/dL. Etiology of current acute kidney injury is secondary to cardiorenal sy ndrome type 1. The patient's 2D echo shows a dilated IVC with moderate to severe tricuspid regurgit ation, ejection fraction of 35% and restrictive diastolic heart failure stage III/IV. These finding s are consistent with cardiorenal pathophysiology. The patient's renal function has also been decli moshe with diuretic therapy, which can be seen in cardiorenal syndrome. Plan at this point is to ch saleem a UA with microanalysis. Will check urine electrolytes to rule out other pathologies and to rul e out an active sediment. We will also check a renal ultrasound ____ renal parenchyma to rule out o bstruction, although suspicion is low. Would recommend to continue low dose diuretic therapy. Agre e with holding EMMIE inhibitor at this time. If renal function does not stabilize and/or if patient c annot be adequately diuresed, the patient may require renal replacement therapy for ultrafiltration. I did speak with the patient's family at bedside and the patient, informing them of the possibilit y of ultrafiltration with dialysis. In the event that the patient's volume status cannot be adequat viet managed through medical means. Will continue to monitor closely. 2. Acute systolic, diastolic heart failure. The patient is currently receiving diuretic therapy. The diuretics have been adjusted due to worsening renal function. Will monitor closely. Will foll ow up with cardiology for further recommendations. 3. Anemia. Continue to monitor hemoglobin and hematocrit levels, no need for Epogen. 4. Mineral bone disorder. Continue to monitor calcium and phosphorus levels. Check a PTH, vitamin D25 level. 5. Pleural effusion, likely secondary to congestive heart failure exacerbation. 6. Status post thoracentesis. We will follow up results. Follow up cytology. 7. Acute respiratory failure secondary to congestive heart failure exacerbation. Continue medical management as stated above. 8. Hyperkalemia, resolved. Etiology is likely due to acute kidney injury in the setting of EMMIE inh ibitor and Aldactone. Will continue to monitor. 9. Atrial fibrillation, currently in sinus rhythm. Continue current medical management. 10. History of gastric and colon CA status post surgery and chemotherapy. Thank you, Dr. Macias, for this patient's consult. It will be a pleasure to follow patient with you throughout the hospital course. Dictated By: ANIL PERALES/LANG Conf#: [id number] DID#: [id number]
--- NOTE | 2016-11-22 15:45 | CONS ---
Date/Time of Note Date/Time of Note DATE: 11/22/16 TIME: 15:44 Consult Date/Type/Reason Admit Date/Time Nov 18, 2016 at 20:54 Type of Consultation: pulmonary Subjective Patient remained stable no new events Objective Vital Signs Date Time Temp Pulse Resp B/P Pulse Ox O2 Delivery O2 Flow Rate FiO2 11/22/16 15:29 98.2 60 18 96/60 98 11/22/16 13:47 Nasal Cannula 2.0 Intake and Output 11/21/16 11/21/16 11/22/16 14:59 22:59 06:59 Intake Total 1920 ml 300 ml Output Total 1000 ml 550 ml Balance 920 ml -250 ml GENERAL: VITAL SIGNS: per chart NECK: Supple. No JVD or lymphadenopathy. CARDIAC EXAM: S1, S2. No added sounds or murmurs. CHEST: Diminished air entry right lung ABDOMEN: Soft, nontender. No guarding or rebound. EXTREMITIES: No cyanosis, clubbing or edema. NEUROLOGIC: Generalized weakness. No focal deficits. Results/Medications Result Diagram: 11/22/16 0635 11/22/16 0635 Results 24 hrs Laboratory Tests Test 11/21/16 17:48 11/21/16 20:34 11/22/16 06:35 11/22/16 08:06 Bedside Glucose 120 126 108 Anion Gap 18 H Basophils # 0.0 Basophils % 0.5 Blood Morphology Comment Blood Urea Nitrogen 67 H Calcium Level 8.3 L Carbon Dioxide Level 24 Chloride Level 106 Creatinine 2.95 H Eosinophils # 0.1 Eosinophils % 1.2 Glucose Level 117 Hematocrit 26.3 L Hemoglobin 8.9 L Lymphocytes # 1.3 Lymphocytes % 20.3 Mean Corpuscular Hemoglobin 33.0 Mean Corpuscular Hemoglobin Concent 33.8 Mean Corpuscular Volume 97.6 Mean Platelet Volume 9.3 Monocytes # 0.5 Monocytes % 8.1 Neutrophils # 4.4 Neutrophils % 69.9 Nucleated Red Blood Cells # 0.0 Nucleated Red Blood Cells % 0.0 Platelet Count 162 Potassium Level 5.0 Red Blood Count 2.69 L Red Cell Distribution Width 21.0 H Sodium Level 143 White Blood Count 6.2 Test 11/22/16 11:29 Bedside Glucose 188 Medications Current Medications Diagnostic Test (Pha) (Accucheck) 1 ea 02 XX Last administered on 11/19/16at 02 :12; Admin Dose 1 EA; Start 12/26/16 at 02:00 Acetaminophen (Tylenol Tab) 650 mg Q6H PRN PO PAIN AND OR ELEVATED TEMP; Start 11/19/16 at 01:00 Ondansetron HCl (Zofran Inj) 4 mg Q6H PRN IV NAUSEA AND/OR VOMITING Last administered on 11/19/16at 03:35; Admin Dose 4 MG; Start 11/19/16 at 01:00 Aspirin (Aspirin) 81 mg DAILY PO Last administered on 11/22/16at 09:43; Admin Dose 81 MG; Start 11/19/16 at 09:00 Atorvastatin Calcium (Lipitor) 40 mg HS PO Last administered on 11/21/16at 20: 37; Admin Dose 40 MG; Start 11/19/16 at 21:00 Benazepril HCl (Lotensin) 20 mg DAILY PO Last administered on 11/19/16at 09:03 ; Admin Dose 20 MG; Start 11/19/16 at 09:00; Status Future Hold Famotidine (Pepcid) 20 mg DAILY PO Last administered on 11/22/16at 09:41; Admin Dose 20 MG; Start 11/19/16 at 09:00 Morphine Sulfate (morphine) 3 mg Q4H PRN IV PAIN Last administered on at 17:52; Admin Dose 3 MG; Start 11/19/16 at 01:30 Metoclopramide HCl (Reglan) 10 mg Q6H PRN IV VOMITTING Last administered on at 05:21; Admin Dose 10 MG; Start 11/19/16 at 05:00 Furosemide (Lasix) 20 mg DAILY@06 IV Last administered on 11/22/16at 05:50; Admin Dose 20 MG; Start 11/19/16 at 06:00 Miscellaneous Information 1 ea NOTE XX ; Start 11/20/16 at 07:30 Glucose (Glutose) 15 gm Q15M PRN PO DECREASED GLUCOSE; Start 11/20/16 at 07:30 Glucose (Glutose) 22.5 gm Q15M PRN PO DECREASED GLUCOSE; Start 11/20/16 at 07: 30 Dextrose (D50w Syringe) 25 ml Q15M PRN IV DECREASED GLUCOSE; Start 11/20/16 at 07:30 Dextrose (D50w Syringe) 50 ml Q15M PRN IV DECREASED GLUCOSE; Start 11/20/16 at 07:30 Glucagon (Glucagen) 1 mg Q15M PRN IM DECREASED GLUCOSE; Start 11/20/16 at 07: 30 Glucose (Glutose) 15 gm Q15M PRN BUCCAL DECREASED GLUCOSE; Start 11/20/16 at 07:30 Carvedilol (Coreg) 3.125 mg BID PO Last administered on 11/22/16at 09:43; Admin Dose 3.125 MG; Start 11/21/16 at 09:00 Assessment/Plan Chief Complaint/Hosp Course Assessment 1. Loculated right pleural effusion exudative in nature 2. Renal insufficiency 3. Anemia questionable of chronic disease Recommendations 1. Thoracic surgery evaluation for video-assisted thoracic decortication 2. Consider correction of anemia preoperatively 3. Renal recommendations 4. DVT and GI prophylaxis Problems: JACQUELIN MANUEL [facility], [facility] Nov 22, 2016 15:44
[2016-11-22] MEDS: ATORVASTATIN 40 MG TAB PO SCH (21:29)
--- NOTE | 2016-11-22 22:39 | PN ---
Date/Time of Note Date/Time of Note DATE: 11/22/16 TIME: 22:38 Assessment/Plan Lines/Catheters IV Catheter Type (from Nrsg): Saline Lock [place] in Place (from Nrsg): No (Condom Cath) Assessment/Plan Chief Complaint/Hosp Course IMPRESSION: Recurrent pleural effusion, no signs of carcinoma. The patient has a loculated right-sided effusion. Would need right video-assisted thoracic surgery, decortication after cardiology clearance, and correction of INR and anemia. Problems: Subjective 24 Hr Interval Summary Constitutional: improved Pain Control: mild Exam/Review of Systems Vital Signs Vitals Vital Signs Date Time Temp Pulse Resp B/P Pulse Ox O2 Delivery O2 Flow Rate FiO2 11/22/16 21:02 98 2.0 11/22/16 20:57 59 18 Nasal Cannula 11/22/16 16:00 98.1 96/56 Intake and Output 11/21/16 11/21/16 11/22/16 15:00 23:00 07:00 Intake Total 1920 ml 300 ml Output Total 1000 ml 550 ml Balance 920 ml -250 ml Exam ENMT: mucosa pink and moist, nl external ears & nose, nl lips & teeth, nl nasal mucosa & septum Neck: non-tender, supple Respiratory: clear to auscultation, normal air movement Cardiovascular: nl pulses, regular rate and rhythm Results Result Diagram: 11/22/16 0635 11/22/16 0635 DIEGO WEIR MD Nov 22, 2016 22:39
[2016-11-23] VITALS (11 sets, daily range): BP systolic 104–122; BP diastolic 59–70; PULSE 58–65; RESP 18–20
[2016-11-23] MEDS: ALBUTEROL/IPRATROPIUM (NEB) 3 ML AMP HHN SCH ×6 (01:37→20:45)
[2016-11-23] MEDS: ACCUCHECK XX SCH (02:00)
[2016-11-23] MEDS: FUROSEMIDE 20 MG INJ IV SCH (05:31)
[2016-11-23 07:16] LABS: BASOPHILS % 0.6 % (0.0-2.0); EOSINOPHILS # 0.1 10^3/ul (0.0-0.5); EOSINOPHILS % 1.6 % (0.0-7.0); HEMATOCRIT 26.8 % (42.0-52.0); HEMOGLOBIN 8.8 g/dl (14.0-18.0); LYMPHOCYTES # 1.3 10^3/ul (0.8-2.9); LYMPHOCYTES % 22.5 % (15.0-51.0); MEAN CORPUSCULAR HEMOGLOBIN 30.8 pg (29.0-33.0); MEAN CORPUSCULAR HGB CONC 32.7 g/dl (32.0-37.0); MEAN CORPUSCULAR VOLUME 94.2 fl (82.0-101.0); MEAN PLATELET VOLUME 9.7 fl (7.4-10.4); MONOCYTE # 0.4 10^3/ul (0.3-0.9); NEUTROPHIL # 3.7 10^3/ul (1.6-7.5); NEUTROPHILS % 67.3 % (39.0-77.0); PLATELET COUNT 175 10^3/UL (140-440); RED BLOOD COUNT 2.85 10^6/ul (4.70-6.10); UNCORRECTED WBC 5.6 10^3/ul (4.8-10.8); WHITE BLOOD COUNT 5.6 10^3/ul (4.8-10.8)
[2016-11-23 07:23] LABS: POTASSIUM 5.3 mmol/L (3.5-5.1)
[2016-11-23 07:25] LABS: CONDITION 1; LH ANALYZER COMMENTS 1
[2016-11-23 07:26] LABS: CREATININE 2.35 mg/dl (0.61-1.24)
[2016-11-23 07:27] LABS: CALCIUM 8.6 mg/dl (8.4-10.2)
[2016-11-23 07:37] LABS: PHOSPHORUS 4.5 mg/dl (2.5-4.9)
[2016-11-23 07:38] LABS: MAGNESIUM 2.3 mg/dl (1.7-2.5)
[2016-11-23] MEDS: INSULIN ASPART [NOVOLOG] 3 ML PEN SC SCH ×4 (07:55→21:00)
[2016-11-23] MEDS ORDERED: ACETAZOLAMIDE 500 MG INJ IV ONE (09:30)
--- NOTE | 2016-11-23 09:46 | PN ---
DATE: 11/23/2016 SUBJECTIVE: The patient is clinically stable, no acute events overnight. No hemoptysis, hematemesi s or hematochezia. OBJECTIVE: VITAL SIGNS: Blood pressure 122/70, respirations 20, pulse 64, temperature 97.9. I's and O's not a dequately recorded. HEENT: Head is normocephalic. NECK: Supple. HEART: Regular rate. Positive murmur. LUNGS: Show diminished breath sounds at base. Positive rhonchi. ABDOMEN: Soft, nontender to palpation. No rebound or guarding. EXTREMITIES: Negative for clubbing, cyanosis. Positive edema. DERMATOLOGIC: No rashes. MUSCULOSKELETAL: No joint effusions. NEUROLOGIC: No change in exam. MEDICATIONS: The patient's medications have been reviewed. LABORATORY DATA: Shows a sodium 140, potassium 5.3, chloride 104, BUN 65, creatinine 2.35. White c ount 5.6, hemoglobin 9.9, hematocrit 6.8, platelet count is 175. The patient's urinalysis pending. Renal ultrasound shows bilateral hyperechoic kidneys consistent with medical renal disease. ASSESSMENT AND PLAN: 1. Nonoliguric acute kidney injury on top of chronic kidney disease stage IIIB/IV, with a baseline creatinine of 1.5 to 2 as mg/dL. Etiology of acute kidney injury is multifactorial secondary to car diorenal syndrome type 1, hemodynamics, EMMIE inhibitor effect. The patient's 2D echo shows findings consistent with cardiorenal pathophysiology given dilated IVC, severe tricuspid regurgitation, which causes venous congestion. The patient's renal function has improved after deescalating diuretic th erapy and holding EMMIE inhibitor. Plan at this point is to continue current medical management. Jose R l add Diamox to help augment diuresis. Monitor renal function closely. Additionally, a urinalysis is pending to evaluate other etiologies, although suspicion is low for acute glomerulonephritis, vas culitis or interstitial nephritis given the patient's current clinical presentation. Renal ultrasou nd showed findings consistent with chronic kidney disease. No evidence of obstruction. Would other hernandez continue supportive care, renally dose all meds, avoid nephrotoxins. 2. Hyperkalemia, mild. Etiology is multifactorial, secondary to acute kidney injury, chronic kidne y disease. The patient will be placed on a low potassium diet. Will monitor potassium levels close ly. If remain elevated, we will consider Kayexalate. The patient will also be given a dose of Diam ox 3. Acute systolic, diastolic heart failure. The patient is currently decompensated as stated above . Continue current diuretic management and will add Diamox. Monitor closely. 4. Anemia of chronic disease. Monitor hemoglobin and hematocrit levels. We will give Epogen as ne eded. 5. Mineral bone disorder. Continue to monitor calcium and phosphorus levels. 6. Pleural effusion, likely secondary to congestive heart failure. The patient has been evaluated by CT surgery as effusion appears loculated. Questionable decortication will monitor closely. 7. Acute respiratory failure secondary to congestive heart failure exacerbation and pleural effusio n. Continue medical management as stated above. 8. Atrial fibrillation, currently in sinus rhythm. Continue medical management. 9. History of gastric and colon CA status post surgery and chemotherapy. No evidence of recurrence at this time. 10. History of coronary artery disease, cardiomyopathy. Continue medical management as stated dax bauer Dictated By: ANIL PERALES/LANG Conf#: [id number] DID#: [id number]
[2016-11-23] MEDS: ASPIRIN 81 MG TAB PO SCH (09:49)
[2016-11-23] MEDS: FAMOTIDINE 20 MG TAB PO SCH (09:51)
--- NOTE | 2016-11-23 10:38 | PN ---
Date/Time of Note Date/Time of Note DATE: 11/23/16 TIME: 10:34 Assessment/Plan VTE Prophylaxis VTE Prophylaxis Intervention: contraindicated VTE Contraindication Reason: blood coagulation disorder Lines/Catheters [facility] Saline Lock Urinary Cath still in place: No Assessment/Plan Assessment/Plan 1. Shortness of breath, secondary to large pleural effusion. - thoracentesis today -looks infectious in nature- will defer to pulm, appreciate pulm c/s - with hemoptysis - sequlae of strep pneumo vs overt heart failure - send out for sputum cultures 2. Chest pain - pleuritic in nature - most likely secondary to above. 3. Abdominal distention, from ascites, likely secondary to alcoholic liver disease - monitor acute changes, abd x-ray negative - US paracentesis today - if INR stable 4. Cardiomyopathy with systolic dysfunction -EF 35% , Stage III/IV diastolic dysfunction, strict I/O's, diuresis 5. Chronic kidney disease - renally adjust medications, avoid nephrotoxins - Hepatorenal with cardio renal - if worsening - possible dialysis - appreciate nephro consult - diamox added 6. Hyperkalemia - if > 5.5 - kayexlate - will give 15 mg po given 7. Atrial fibrillation, rate controlled and in sinus - hold anticoagulation - 2 /2 to coagulopathy 8. Coagulopathy - will check hepatitis panel - most likely chronic liver disease 9. Gastric and colon cancer status post surgery and chemo. 10. Alcohol abuse - monitor labs 11. Megaloblastic anemia, most likely secondary to anemia of chronic disease. - check folate/vitb12 12. GI ppx - protonix 13. DVT ppx - scds dispo - f/u labs, f/u cytology of pleural fluid - hold off on antibiotics until culture grows, US paracentesis today this progress note took greater than 40 minutes to complete Subjective 24 Hr Interval Summary Free Text/Dictation Patient had no overnight events. Spoke to the family member present at bedside about the care plan. Possible US paracentesis today. 25 minutes spent. Exam/Review of Systems Vital Signs Vitals Vital Signs Date Time Temp Pulse Resp B/P Pulse Ox O2 Delivery O2 Flow Rate FiO2 11/23/16 09:00 98.0 65 18 115/62 98 Nasal Cannula 3.0 Intake and Output 11/22/16 11/22/16 11/23/16 15:00 23:00 07:00 Intake Total 2320 ml Output Total 2000 ml Balance 320 ml Exam Gen Ana: mild shortness of breath, AAOx4 HEENT: NC/AT, PERRLA, EOMI, no pharyngeal erythema, no tonsillar exudates, no lymphadenopathy, no JVD, no carotid bruits NECK: supple, no thyromegaly THORAX: symmetrical, no obvious deformities CV: S1S2, RRR, no M/G/R Lungs: right diminished breath sounds, left scattered rhonchi, crackles - no overt wheezing - scattered rhonchi - worsening Abd: soft, NT/distention, mild fluid wave, +BS, no rebound, no guarding, neg HSM EXT: no edema, no ecchymosis, no clubbing, FROM Neuro: CN II-XII grossly intact, no focal deficits Psych: fair mood and affect Skin: C/D/I Results Result Diagram: 11/23/16 0600 11/23/16 0600 Results 24 hrs Laboratory Tests Test 11/22/16 11:29 11/22/16 17:26 11/22/16 21:03 11/23/16 06:00 Bedside Glucose 188 105 156 Anion Gap 18 H Basophils # 0.0 Basophils % 0.6 Blood Morphology Comment Blood Urea Nitrogen 65 H Calcium Level 8.6 Carbon Dioxide Level 23 Chloride Level 104 Creatinine 2.35 H Eosinophils # 0.1 Eosinophils % 1.6 Glucose Level 105 Hematocrit 26.8 L Hemoglobin 8.8 L Lymphocytes # 1.3 Lymphocytes % 22.5 Mean Corpuscular Hemoglobin 30.8 Mean Corpuscular Hemoglobin Concent 32.7 Mean Corpuscular Volume 94.2 Mean Platelet Volume 9.7 Monocytes # 0.4 Monocytes % 8.0 Neutrophils # 3.7 Neutrophils % 67.3 Nucleated Red Blood Cells # 0.0 Nucleated Red Blood Cells % 0.0 Platelet Count 175 Potassium Level 5.3 H Red Blood Count 2.85 L Red Cell Distribution Width 21.0 H Sodium Level 140 White Blood Count 5.6 Test 11/23/16 06:10 11/23/16 08:16 Magnesium Level 2.3 Phosphorus Level 4.5 Bedside Glucose 112 Medications Medications Current Medications Diagnostic Test (Pha) (Accucheck) 1 ea 02 XX Last administered on 11/19/16at 02 :12; Admin Dose 1 EA; Start 11/19/16 at 02:00 Acetaminophen (Tylenol Tab) 650 mg Q6H PRN PO PAIN AND OR ELEVATED TEMP; Start 11/19/16 at 01:00 Ondansetron HCl (Zofran Inj) 4 mg Q6H PRN IV NAUSEA AND/OR VOMITING Last administered on 11/19/16at 03:35; Admin Dose 4 MG; Start 11/19/16 at 01:00 Aspirin (Aspirin) 81 mg DAILY PO Last administered on 11/23/16at 09:49; Admin Dose 81 MG; Start 11/19/16 at 09:00 Atorvastatin Calcium (Lipitor) 40 mg HS PO Last administered on 11/22/16at 21: 29; Admin Dose 40 MG; Start 11/19/16 at 21:00 Benazepril HCl (Lotensin) 20 mg DAILY PO Last administered on 11/19/16at 09:03 ; Admin Dose 20 MG; Start 11/19/16 at 09:00; Status Future Hold Famotidine (Pepcid) 20 mg DAILY PO Last administered on 11/23/16at 09:51; Admin Dose 20 MG; Start 11/19/16 at 09:00 Morphine Sulfate (morphine) 3 mg Q4H PRN IV PAIN Last administered on at 17:52; Admin Dose 3 MG; Start 11/19/16 at 01:30 Metoclopramide HCl (Reglan) 10 mg Q6H PRN IV VOMITTING Last administered on at 05:21; Admin Dose 10 MG; Start 11/19/16 at 05:00 Furosemide (Lasix) 20 mg DAILY@06 IV Last administered on 11/23/16at 05:31; Admin Dose 20 MG; Start 11/19/16 at 06:00 Miscellaneous Information 1 ea NOTE XX ; Start 11/20/16 at 07:30 Glucose (Glutose) 15 gm Q15M PRN PO DECREASED GLUCOSE; Start 11/20/16 at 07:30 Glucose (Glutose) 22.5 gm Q15M PRN PO DECREASED GLUCOSE; Start 11/20/16 at 07: 30 Dextrose (D50w Syringe) 25 ml Q15M PRN IV DECREASED GLUCOSE; Start 11/20/16 at 07:30 Dextrose (D50w Syringe) 50 ml Q15M PRN IV DECREASED GLUCOSE; Start 11/20/16 at 07:30 Glucagon (Glucagen) 1 mg Q15M PRN IM DECREASED GLUCOSE; Start 11/20/16 at 07: 30 Glucose (Glutose) 15 gm Q15M PRN BUCCAL DECREASED GLUCOSE; Start 11/20/16 at 07:30 Carvedilol (Coreg) 3.125 mg BID PO Last administered on 11/23/16at 09:51; Admin Dose 3.125 MG; Start 11/21/16 at 09:00 AZRA GUPTA MD Nov 23, 2016 10:38
[2016-11-23 12:03] LABS: INR 1.28; PROTIME 16.1 Sec (12.2-14.2); PT RATIO 1.3
[2016-11-23 12:04] LABS: PARTIAL THROMBOPLASTIN TIME 37.2 Sec (25.0-35.0)
[2016-11-23 13:08] LABS: ADD UMIC NO; URINE BILIRUBIN (Dip) NEGATIVE (NEGATIVE); URINE BLOOD (Dip) NEGATIVE (NEGATIVE); URINE COLOR LT. YELLOW (YELLOW); URINE GLUCOSE (Dip) NEGATIVE (NEGATIVE); URINE KETONES (Dip) NEGATIVE (NEGATIVE); URINE LEUKOCYTE ESTERASE (Dip) NEGATIVE (NEGATIVE); URINE NITRITE (Dip) NEGATIVE (NEGATIVE); URINE TOTAL PROTEIN (Dip) NEGATIVE (NEGATIVE); URINE UROBILINOGEN (Dip) 4.0 E.U./dL (0.1-1.0)
--- NOTE | 2016-11-23 13:38 | CONS ---
Date/Time of Note Date/Time of Note DATE: 11/23/16 TIME: 13:37 Consult Date/Type/Reason Admit Date/Time Nov 18, 2016 at 20:54 Type of Consultation: pulmonary Subjective Patient stable no new events Still has productive cough No fever chills Objective Vital Signs Date Time Temp Pulse Resp B/P Pulse Ox O2 Delivery O2 Flow Rate FiO2 11/23/16 13:12 84 20 95 2.0 11/23/16 09:00 98.0 115/62 Nasal Cannula Intake and Output 11/22/16 11/22/16 11/23/16 14:59 22:59 06:59 Intake Total 2320 ml Output Total 2000 ml Balance 320 ml GENERAL: Elderly gentleman appears comfortable at rest VITAL SIGNS: per chart NECK: Supple. No JVD or lymphadenopathy. CARDIAC EXAM: S1, S2. No added sounds or murmurs. CHEST: Diminished air entry right lung ABDOMEN: Soft, nontender. No guarding or rebound. EXTREMITIES: No cyanosis, clubbing or edema. NEUROLOGIC: Generalized weakness. No focal deficits. Results/Medications Result Diagram: 11/23/16 0611/23/16 0600 Results 24 hrs Laboratory Tests Test 11/22/16 17:26 11/22/16 21:03 11/23/16 06:00 11/23/16 06:10 Bedside Glucose 105 156 Anion Gap 18 H Basophils # 0.0 Basophils % 0.6 Blood Morphology Comment Blood Urea Nitrogen 65 H Calcium Level 8.6 Carbon Dioxide Level 23 Chloride Level 104 Creatinine 2.35 H Eosinophils # 0.1 Eosinophils % 1.6 Glucose Level 105 Hematocrit 26.8 L Hemoglobin 8.8 L Lymphocytes # 1.3 Lymphocytes % 22.5 Mean Corpuscular Hemoglobin 30.8 Mean Corpuscular Hemoglobin Concent 32.7 Mean Corpuscular Volume 94.2 Mean Platelet Volume 9.7 Monocytes # 0.4 Monocytes % 8.0 Neutrophils # 3.7 Neutrophils % 67.3 Nucleated Red Blood Cells # 0.0 Nucleated Red Blood Cells % 0.0 Platelet Count 175 Potassium Level 5.3 H Red Blood Count 2.85 L Red Cell Distribution Width 21.0 H Sodium Level 140 White Blood Count 5.6 Magnesium Level 2.3 Phosphorus Level 4.5 Test 11/23/16 08:16 11/23/16 11:33 11/23/16 11:35 11/23/16 12:40 Bedside Glucose 112 183 Activated Partial Thromboplast Time 37.2 H INR International Normalized Ratio 1.28 Prothrombin Time 16.1 H Prothrombin Time Ratio 1.3 Urine Bilirubin NEGATIVE Urine Clarity CLEAR Urine Color LT. YELLOW Urine Glucose NEGATIVE Urine Hemoglobin NEGATIVE Urine Ketones NEGATIVE Urine Leukocyte Esterase NEGATIVE Urine Nitrite NEGATIVE Urine Random Creatinine 34.73 Urine Random Sodium 110 H Urine Specific [place] 1.010 Urine Total Protein Urine Urobilinogen 4.0 E.U./dL H Urine pH 6.0 Medications Current Medications Diagnostic Test (Pha) (Accucheck) 1 ea 02 XX Last administered on 11/19/16at 02 :12; Admin Dose 1 EA; Start 11/19/16 at 02:00 Acetaminophen (Tylenol Tab) 650 mg Q6H PRN PO PAIN AND OR ELEVATED TEMP; Start 11/19/16 at 01:00 Ondansetron HCl (Zofran Inj) 4 mg Q6H PRN IV NAUSEA AND/OR VOMITING Last administered on 11/19/16 03:35; Admin Dose 4 MG; Start 11/19/16 at 01:00 Aspirin (Aspirin) 81 mg DAILY PO Last administered on 11/23/16 09:49; Admin Dose 81 MG; Start 11/19/16 at 09:00 Atorvastatin Calcium (Lipitor) 40 mg HS PO Last administered on 11/22/16 21: 29; Admin Dose 40 MG; Start 11/19/16 at 21:00 Benazepril HCl (Lotensin) 20 mg DAILY PO Last administered on 11/19/16 09:03 ; Admin Dose 20 MG; Start 11/19/16 at 09:00; Status Future Hold Famotidine (Pepcid) 20 mg DAILY PO Last administered on 11/23/16 09:51; Admin Dose 20 MG; Start 11/19/16 at 09:00 Morphine Sulfate (morphine) 3 mg Q4H PRN IV PAIN Last administered on 17:52; Admin Dose 3 MG; Start 11/19/16 at 01:30 Metoclopramide HCl (Reglan) 10 mg Q6H PRN IV VOMITTING Last administered on 05:21; Admin Dose 10 MG; Start 11/19/16 at 05:00 Furosemide (Lasix) 20 mg DAILY@06 IV Last administered on 12/30/16at 05:31; Admin Dose 20 MG; Start 11/19/16 at 06:00 Miscellaneous Information 1 ea NOTE XX ; Start 11/20/16 at 07:30 Glucose (Glutose) 15 gm Q15M PRN PO DECREASED GLUCOSE; Start 11/20/16 at 07:30 Glucose (Glutose) 22.5 gm Q15M PRN PO DECREASED GLUCOSE; Start 11/20/16 at 07: 30 Dextrose (D50w Syringe) 25 ml Q15M PRN IV DECREASED GLUCOSE; Start 11/20/16 at 07:30 Dextrose (D50w Syringe) 50 ml Q15M PRN IV DECREASED GLUCOSE; Start 11/20/16 at 07:30 Glucagon (Glucagen) 1 mg Q15M PRN IM DECREASED GLUCOSE; Start 11/20/16 at 07: 30 Glucose (Glutose) 15 gm Q15M PRN BUCCAL DECREASED GLUCOSE; Start 11/20/16 at 07:30 Carvedilol (Coreg) 3.125 mg BID PO Last administered on 11/23/16at 09:51; Admin Dose 3.125 MG; Start 11/21/16 at 09:00 Assessment/Plan Chief Complaint/Hosp Course Assessment 1. Loculated right pleural effusion exudative in nature 2. Renal insufficiency 3. Anemia questionable of chronic disease Recommendations 1. Thoracic surgery evaluation for video-assisted thoracic decortication 2. Consider correction of anemia preoperatively 3. Renal recommendations 4. DVT and GI prophylaxis Problems: JACQUELIN MANUEL MD, [facility] Nov 23, 2016 13:38
--- NOTE | 2016-11-23 14:29 | PN ---
Date/Time of Note Date/Time of Note DATE: 11/23/16 TIME: 14:28 Assessment/Plan Lines/Catheters IV Catheter Type (from Nrs): Saline Lock Culver in Place (from Nrsg): No Assessment/Plan Chief Complaint/Hosp Course IMPRESSION: Recurrent pleural effusion, no signs of carcinoma. The patient has a loculated right-sided effusion. Would need right video-assisted thoracic surgery, decortication after cardiology clearance, and correction of INR and anemia. Problems: Subjective 24 Hr Interval Summary Constitutional: improved Pain Control: mild Exam/Review of Systems Vital Signs Vitals Vital Signs Date Time Temp Pulse Resp B/P Pulse Ox O2 Delivery O2 Flow Rate FiO2 11/23/16 13:12 84 20 95 2.0 11/23/16 09:00 98.0 115/62 Nasal Cannula Intake and Output 11/22/16 11/22/16 11/23/16 15:00 23:00 07:00 Intake Total 2320 ml Output Total 2000 ml Balance 320 ml Exam Neck: non-tender, supple Respiratory: clear to auscultation, normal air movement Cardiovascular: nl pulses, regular rate and rhythm Gastrointestinal: nl liver, spleen, non-tender, soft Results Result Diagram: 11/23/16 0600 11/23/16 0600 DIEGO WEIR MD Nov 23, 2016 14:29
[2016-11-23 16:40] LABS: POTASSIUM 5.3 mmol/L (3.5-5.1)
[2016-11-23 16:42] LABS: CREATININE 2.47 mg/dl (0.61-1.24)
[2016-11-23 16:43] LABS: CALCIUM 8.7 mg/dl (8.4-10.2)
--- NOTE | 2016-11-23 20:37 | PN ---
DATE: 11/23/2016 SUBJECTIVE: The patient remains in sinus rhythm. No chest pain or pressure. Shortness of breath h as remained stable. Discussed with the staff. Rhythm strip was reviewed. MEDICATIONS: Reviewed. PHYSICAL EXAMINATION: VITAL SIGNS: Temperature 97.6, heart rate of 60, blood pressure 108/60, respiratory rate of 20, sat urating 94%. HEENT: Normocephalic, atraumatic. Pupils are equal. CARDIOVASCULAR: Regular rate and rhythm. PULMONARY: With rhonchi. GASTROINTESTINAL: Soft, nontender. EXTREMITIES: Positive diffuse edema. NEUROLOGIC: Awake and alert. PSYCHIATRIC: Appeared to be calm. LABORATORY: WBC 5.6, hemoglobin 8.8, platelets of 175. Sodium 141, potassium 5.3, BUN of 60, creat inine 2.47, glucose of 114. Chest x-ray shows no significant change. Large left pleural effusion partially loculated. ASSESSMENT AND PLAN: 1. Severe cardiomyopathy. 2. Congestive heart failure. 3. Pleural effusion. 4. Renal failure. 5. Anemia. 6. Questionable history of coronary artery disease. RECOMMENDATIONS: Diuresis is being managed as per Renal. Continue with pulmonary recommendations. As far as cardiovascular preop evaluation, consider patient as severe cardiomyopathy and decompensa hermelindo heart failure, renal failure, and at this point we do not know the etiology of her cardiomyopath y. She will be considered high risk for anesthesia and VATS procedure. If the plan is to continue with it, we will need to do at least Lexiscan stress test to rule out ischemia prior to the proposed surgery. Dictated By: COLIN BERGERON MD AV/LANG Conf#: [id number] DID#: [id number] CC: AZRA GUPTA MD;*EndCC*
[2016-11-23] MEDS: ATORVASTATIN 40 MG TAB PO SCH (21:01)
[2016-11-24] VITALS (12 sets, daily range): BP systolic 100–136; BP diastolic 56–73; PULSE 57–65; RESP 18–20
[2016-11-24] MEDS: ACCUCHECK XX SCH (01:22)
[2016-11-24] MEDS: ALBUTEROL/IPRATROPIUM (NEB) 3 ML AMP HHN SCH ×6 (02:41→20:27)
[2016-11-24] MEDS: FUROSEMIDE 20 MG INJ IV SCH ×2 (06:23→17:35)
[2016-11-24 07:13] LABS: BASOPHILS % 0.5 % (0.0-2.0); EOSINOPHILS # 0.1 10^3/ul (0.0-0.5); EOSINOPHILS % 1.5 % (0.0-7.0); HEMOGLOBIN 9.1 g/dl (14.0-18.0); LYMPHOCYTES # 1.3 10^3/ul (0.8-2.9); MEAN CORPUSCULAR HEMOGLOBIN 31.1 pg (29.0-33.0); MEAN CORPUSCULAR HGB CONC 33.7 g/dl (32.0-37.0); MEAN CORPUSCULAR VOLUME 92.5 fl (82.0-101.0); MEAN PLATELET VOLUME 9.9 fl (7.4-10.4); MONOCYTE # 0.5 10^3/ul (0.3-0.9); MONOCYTES % 8.8 % (0.0-11.0); NEUTROPHIL # 4.1 10^3/ul (1.6-7.5); NEUTROPHILS % 67.2 % (39.0-77.0); PLATELET COUNT 171 10^3/UL (140-440); RED BLOOD COUNT 2.91 10^6/ul (4.70-6.10); RED CELL DISTRIBUTION WIDTH 21.7 % (11.5-14.5); UNCORRECTED WBC 6.1 10^3/ul (4.8-10.8); WHITE BLOOD COUNT 6.1 10^3/ul (4.8-10.8)
[2016-11-24 07:15] LABS: CONDITION 1; LH ANALYZER COMMENTS 1
[2016-11-24 07:40] LABS: POTASSIUM 5.3 mmol/L (3.5-5.1)
[2016-11-24 07:42] LABS: CREATININE 2.15 mg/dl (0.61-1.24)
[2016-11-24 07:43] LABS: CALCIUM 8.7 mg/dl (8.4-10.2); MAGNESIUM 2.2 mg/dl (1.7-2.5); PHOSPHORUS 4.5 mg/dl (2.5-4.9)
[2016-11-24] MEDS: INSULIN ASPART [NOVOLOG] 3 ML PEN SC SCH ×4 (07:55→21:16)
[2016-11-24] MEDS: ASPIRIN 81 MG TAB PO SCH (08:29)
[2016-11-24] MEDS: FAMOTIDINE 20 MG TAB PO SCH (08:29)
--- NOTE | 2016-11-24 09:13 | PN ---
Date/Time of Note Date/Time of Note DATE: 11/24/16 TIME: 09:09 Assessment/Plan VTE Prophylaxis VTE Prophylaxis Intervention: contraindicated VTE Contraindication Reason: blood coagulation disorder Lines/Catheters IV [facility]from [facility] Saline Lock Urinary Cath still in place: No Assessment/Plan Assessment/Plan 1. Shortness of breath, secondary to large pleural effusion. - s/p thoracentesis -looks infectious in nature- will defer to pulm, appreciate pulm c /s - with hemoptysis - sequlae of strep pneumo vs overt heart failure - send out for sputum cultures 2. Chest pain - pleuritic in nature - most likely secondary to above. 3. Abdominal distention, from ascites, likely secondary to alcoholic liver disease - monitor acute changes, abd x-ray negative - US paracentesis today 4. Cardiomyopathy with systolic dysfunction -EF 35% , Stage III/IV diastolic dysfunction, strict I/O's, diuresis - stress test prior to surgical procedures as per cardio 5. Chronic kidney disease - renally adjust medications, avoid nephrotoxins - Hepatorenal with cardio renal - if worsening - possible dialysis - appreciate nephro consult - diamox added 6. Hyperkalemia - if > 5.5 - kayexlate - will give 15 mg po given 7. Atrial fibrillation, rate controlled and in sinus - hold anticoagulation - 2 /2 to coagulopathy 8. Coagulopathy - hepatitis panel Hep B core antigen + - most likely chronic liver disease 9. Gastric and colon cancer status post surgery and chemo. 10. Alcohol abuse - monitor labs 11. Megaloblastic anemia, most likely secondary to anemia of chronic disease. - nl folate/vitb12 12. GI ppx - protonix 13. DVT ppx - scds dispo - f/u labs, f/u cytology of pleural fluid - hold off on antibiotics until culture grows, US paracentesis today, stress test as per cardio this progress note took greater than 30 minutes to complete Subjective 24 Hr Interval Summary Free Text/Dictation Patient is doing better. Sitting in a chair. I spoke to him in regards to the care plan. he understands that if he had to undergo surgery, prior to this, a stress test would need to be obtained. 15 minutes spent. Exam/Review of Systems Vital Signs Vitals Vital Signs Date Time Temp Pulse Resp B/P Pulse Ox O2 Delivery O2 Flow Rate FiO2 11/24/16 08:06 65 11/24/16 07:38 98.2 20 127/64 98 11/24/16 06:27 Nasal Cannula 3.0 Intake and Output 11/23/16 11/23/16 11/24/16 15:00 23:00 07:00 Intake Total 400 ml 700 ml 400 ml Output Total 750 ml 500 ml 1000 ml Balance -350 ml 200 ml -600 ml Exam Gen Ana: mild shortness of breath, AAOx4 HEENT: NC/AT, PERRLA, EOMI, no pharyngeal erythema, no tonsillar exudates, no lymphadenopathy, no JVD, no carotid bruits NECK: supple, no thyromegaly THORAX: symmetrical, no obvious deformities CV: S1S2, RRR, no M/G/R Lungs: right diminished breath sounds, left scattered rhonchi, crackles - no overt wheezing - scattered rhonchi - stable Abd: soft, NT/distention, mild fluid wave, +BS, no rebound, no guarding, neg HSM EXT: no edema, no ecchymosis, no clubbing, FROM Neuro: CN II-XII grossly intact, no focal deficits Psych: fair mood and affect Skin: C/D/I Results Result Diagram: 11/24/16 0620 11/24/16 0620 Results 24 hrs Laboratory Tests Test 11/23/16 11:33 11/23/16 11:35 11/23/16 12:40 11/23/16 16:05 Bedside Glucose 183 Activated Partial Thromboplast Time 37.2 H INR International Normalized Ratio 1.28 Prothrombin Time 16.1 H Prothrombin Time Ratio 1.3 Urine Bilirubin NEGATIVE Urine Clarity CLEAR Urine Color LT. YELLOW Urine Glucose NEGATIVE Urine Hemoglobin NEGATIVE Urine Ketones NEGATIVE Urine Leukocyte Esterase NEGATIVE Urine Nitrite NEGATIVE Urine Random Creatinine 34.73 Urine Random Sodium 110 H Urine Specific [place] 1.010 Urine Total Protein Urine Urobilinogen 4.0 E.U./dL H Urine pH 6.0 Anion Gap 17 H Blood Urea Nitrogen 60 H Calcium Level 8.7 Carbon Dioxide Level 24 Chloride Level 105 Creatinine 2.47 H Glucose Level 114 Potassium Level 5.3 H Sodium Level 141 Test 11/23/16 17:38 11/23/16 21:02 11/24/16 06:20 11/24/16 08:14 Bedside Glucose 171 104 96 Anion Gap 18 H Basophils # 0.0 Basophils % 0.5 Blood Morphology Comment Blood Urea Nitrogen 54 H Calcium Level 8.7 Carbon Dioxide Level 23 Chloride Level 104 Creatinine 2.15 H Eosinophils # 0.1 Eosinophils % 1.5 Glucose Level 96 Hematocrit 27.0 L Hemoglobin 9.1 L Lymphocytes # 1.3 Lymphocytes % 22.0 Magnesium Level 2.2 Mean Corpuscular Hemoglobin 31.1 Mean Corpuscular Hemoglobin Concent 33.7 Mean Corpuscular Volume 92.5 Mean Platelet Volume 9.9 Monocytes # 0.5 Monocytes % 8.8 Neutrophils # 4.1 Neutrophils % 67.2 Nucleated Red Blood Cells # 0.0 Nucleated Red Blood Cells % 0.0 Phosphorus Level 4.5 Platelet Count 171 Potassium Level 5.3 H Red Blood Count 2.91 L Red Cell Distribution Width 21.7 H Sodium Level 140 White Blood Count 6.1 Medications Medications Current Medications Diagnostic Test (Pha) (Accucheck) 1 ea 02 XX Last administered on 11/19/16at 02 :12; Admin Dose 1 EA; Start 11/19/16 at 02:00 Acetaminophen (Tylenol Tab) 650 mg Q6H PRN PO PAIN AND OR ELEVATED TEMP; Start 11/19/16 at 01:00 Ondansetron HCl (Zofran Inj) 4 mg Q6H PRN IV NAUSEA AND/OR VOMITING Last administered on 11/19/16at 03:35; Admin Dose 4 MG; Start 11/19/16 at 01:00 Aspirin (Aspirin) 81 mg DAILY PO Last administered on 11/24/16at 08:29; Admin Dose 81 MG; Start 11/19/16 at 09:00 Atorvastatin Calcium (Lipitor) 40 mg HS PO Last administered on 11/23/16at 21: 01; Admin Dose 40 MG; Start 11/19/16 at 21:00 Benazepril HCl (Lotensin) 20 mg DAILY PO Last administered on 11/19/16 09:03 ; Admin Dose 20 MG; Start 11/19/16 at 09:00; Status Future Hold Famotidine (Pepcid) 20 mg DAILY PO Last administered on 11/24/16at 08:29; Admin Dose 20 MG; Start 11/19/16 at 09:00 Morphine Sulfate (morphine) 3 mg Q4H PRN IV PAIN Last administered on at 17:52; Admin Dose 3 MG; Start 11/19/16 at 01:30 Metoclopramide HCl (Reglan) 10 mg Q6H PRN IV VOMITTING Last administered on at 05:21; Admin Dose 10 MG; Start 11/19/16 at 05:00 Furosemide (Lasix) 20 mg DAILY@06 IV Last administered on 11/24/16at 06:23; Admin Dose 20 MG; Start 11/19/16 at 06:00 Miscellaneous Information 1 ea NOTE XX ; Start 11/20/16 at 07:30 Glucose (Glutose) 15 gm Q15M PRN PO DECREASED GLUCOSE; Start 11/20/16 at 07:30 Glucose (Glutose) 22.5 gm Q15M PRN PO DECREASED GLUCOSE; Start 11/20/16 at 07: 30 Dextrose (D50w Syringe) 25 ml Q15M PRN IV DECREASED GLUCOSE; Start 11/20/16 at 07:30 Dextrose (D50w Syringe) 50 ml Q15M PRN IV DECREASED GLUCOSE; Start 11/20/16 at 07:30 Glucagon (Glucagen) 1 mg Q15M PRN IM DECREASED GLUCOSE; Start 11/20/16 at 07: 30 Glucose (Glutose) 15 gm Q15M PRN BUCCAL DECREASED GLUCOSE; Start 11/20/16 at 07:30 Carvedilol (Coreg) 3.125 mg BID PO Last administered on 11/24/16at 08:29; Admin Dose 3.125 MG; Start 11/21/16 at 09:00 AZRA GUPTA MD Nov 24, 2016 09:13
[2016-11-24] MEDS ORDERED: ACETAZOLAMIDE 500 MG INJ IV ONE (12:00)
--- NOTE | 2016-11-24 13:00 | PN ---
Date/Time of Note Date/Time of Note DATE: 11/24/16 TIME: 12:59 Assessment/Plan Lines/Catheters IV Catheter Type (from Nrsg): Saline Lock Culver in Place (from Nrsg): No Assessment/Plan Chief Complaint/Hosp Course IMPRESSION: Recurrent pleural effusion, no signs of carcinoma. The patient has a loculated right-sided effusion. Would need right video-assisted thoracic surgery, decortication after cardiology clearance, and correction of INR and anemia. Cardiology evaluation in progress Problems: Subjective 24 Hr Interval Summary Constitutional: improved Pain Control: mild Exam/Review of Systems Vital Signs Vitals Vital Signs Date Time Temp Pulse Resp B/P Pulse Ox O2 Delivery O2 Flow Rate FiO2 11/24/16 12:10 62 11/24/16 11:22 97.7 20 121/66 99 11/24/16 09:26 Nasal Cannula 3.0 Intake and Output 11/23/16 11/23/16 11/24/16 15:00 23:00 07:00 Intake Total 400 ml 700 ml 400 ml Output Total 750 ml 500 ml 1000 ml Balance -350 ml 200 ml -600 ml Exam ENMT: mucosa pink and moist, nl external ears & nose, nl lips & teeth, nl nasal mucosa & septum Neck: non-tender, supple Respiratory: diminished breath sounds, normal air movement Cardiovascular: nl pulses, regular rate and rhythm Gastrointestinal: nl liver, spleen, non-tender, soft Results Result Diagram: 11/24/16 0620 11/24/16619 DIEGO WEIR MD Nov 24, 2016 13:00
--- NOTE | 2016-11-24 13:15 | PN ---
DATE: 11/24/2016 REASON FOR FOLLOWUP: Respiratory distress. The patient is stable this morning. PHYSICAL EXAMINATION: VITAL SIGNS: Temperature 98, pulse is 77, blood pressure 127/64, O2 saturation 96% on 3 liters. NECK: Supple. No JVD or lymphadenopathy. CARDIAC: S1, S2. No added sounds or murmurs. CHEST: Diminished air entry bilaterally. ABDOMEN: Soft, nontender. No guarding or rebound. EXTREMITIES: No cyanosis, clubbing or edema. NEUROLOGIC: Generalized weakness. LABORATORY: White count 6.1, hemoglobin 9.1, platelets of 171. BUN 54, creatinine 2.15. INR 1.28. IMPRESSION AND PLAN: 1. Loculated right pleural effusion, which is exudative in nature. 2. Congestive cardiac failure. 3. Cardiomyopathy, with a decreased ejection fraction and a component of diastolic dysfunction. 4. History of colon cancer, status post chemotherapy and surgery. PLAN: 1. VATS decortication, scheduled by Dr. Diaz. 2. Continue to correct hemoglobin and INR. 3. Incentive spirometry. 4. Cardiology evaluation and clearance preoperatively. Dictated By: JACQUELIN MARSHALL/LANG Conf#: [id number] DID#: [id number]
--- NOTE | 2016-11-24 14:04 | PN ---
DATE: 11/24/2016 SUBJECTIVE: The patient is stable, no acute events overnight. No fevers, chills, nausea, vomiting. OBJECTIVE: VITAL SIGNS: Blood pressure is 120/66, respiration is 20, pulse 62, temperature 97.6. INTAKE AND OUTPUT: 1500 in, 2.2 L out. HEENT: Head is normocephalic. NECK: Supple. HEART: Regular rate. LUNGS: Show diminished breath sounds at base. Positive crackles. ABDOMEN: Soft, nontender to palpation without rebound or guarding. EXTREMITIES: Negative for clubbing, cyanosis. Positive edema. DERMATOLOGIC: No rashes. MUSCULOSKELETAL: No joint effusions. NEUROLOGIC: No change in exam. MEDICATIONS: The patient's medications have been reviewed. LABORATORY DATA: Shows sodium 140, potassium , chloride 104, BUN 54, creatinine 2.15. White c ount 6.1, hemoglobin 9.1, hematocrit 27.0, platelet count is 171. ASSESSMENT AND PLAN: 1. Nonoliguric acute kidney injury, on top of chronic kidney disease stage IIIB/IV, with a baseline creatinine of 1.5 to 2 mg/dL. Etiology of acute kidney injury is secondary to multifactorial cause s; including cardiorenal syndrome type 1, hemodynamics, and EMMIE inhibitor effect. The patient's david al function has improved after adjusting diuretic therapy and holding EMMEI inhibitor. The patient co ntinues to be volume overloaded. At this point, We will intensify Lasix to 20 mg twice daily. We w ill give an additional dose of Diamox to augment diuresis. If the patient's renal function remains stable, we will further intensify diuretic therapy within the next 24 hours. 2. Hyperkalemia, mild. Etiology secondary to acute kidney injury and chronic kidney disease. Cont inue low-potassium diet. Continue Diamox. Monitor closely. 3. Acute systolic/diastolic heart failure. The patient is decompensated, as stated above. Continu e current diuretic regimen. 4. Anemia of chronic disease. Continue to monitor hemoglobin and hematocrit levels. Continue Epog en. 5. Mineral bone disorder. Continue to monitor calcium and phosphorus levels. 6. Pleural effusion, likely due to congestive heart failure. The patient has been evaluated by CT Surgery for possibility of decortication. 7. Acute respiratory failure, secondary to congestive heart failure exacerbation and pleural effusi on. Continue medical management. 8. Atrial fibrillation, currently in sinus rhythm. Continue medical management. 9. History of gastric and colon CA, status post surgery and chemotherapy. 10. Coronary artery disease/Cardiomyopathy. Continue medical management as stated above. Dictated By: ANIL PERALES/LANG Conf#: [id number] DID#: [id number]
[2016-11-24] MEDS ORDERED: LIDOCAINE 1% (MPF) 5 ML VIAL ONE (17:12)
--- NOTE | 2016-11-24 17:41 | RADRPT ---
AMENDMENT: 11/24/2016 7:28:59 PM Adeel Haskins M.D Patient Name: SONIDO SCHWARTZ Report Date: 24-Nov-2016 17:40.00 Patient Date: 1950 Report Status: S Accession No.: [id number] Reason for study: #reason_for_study# [place] [id number] Radiology Main Line: [phone] DIAGNOSTIC IMAGING REPORT Patient: EFREN HEAD : 1950 Age: 66 Sex: M MR #: [id number] DOS: 11/24/16 1707 Ordering MD: AZRA GUPTA MD [facility]: Ultrasound guided paracentesis CLINICAL INDICATION: Ascites TECHNIQUE: The risks benefits and alternatives of the procedure were explained to the patient. Informed written consent was obtained. The patient understood the risks benefits and alternatives and wished to proceed with the procedure. A time out was performed. The overlying skin of the right lower quadrant of the abdomen was prepped and draped in the usual sterile fashion. Approximately 10 cc of lidocaine was injected locally for pain control. Utilizing ultrasound guidance, an 6-Yemeni paracentesis catheter was placed into the peritoneal cavity without difficulty. Fluid was drained into vacuum bottles. After completion of draining fluid, the catheter was removed and direct pressure was applied to the puncture site. A compression bandage was then placed at the puncture site. The patient tolerated the procedure well without complication. The fluid was sent to the lab for further analysis. COMPARISON: None available FINDINGS: Surgeon: Fanny NERI. Preprocedural diagnosis: Ascites. Postprocedural diagnosis: Ascites. Samples removed: 500 cc of light serosanguinous fluid was obtained. Complications: None. Estimated blood loss: 0 cc. Condition: Stable and unchanged. IMPRESSION: 1. Successful ultrasound-guided paracentesis. RPTAT: QQ .Adeel Haskins MD, Date Time Electronically viewed and signed by .Adeel Haskins MD, on 11/24/2016 17:40 .M/ CC: AZRA GUPTA MD Radiologist : .Adeel Haskins MD, MD Date Time Electronically viewed and signed by .Adeel Haskins MD, on 11/24/2016 19:29 .M/
[2016-11-24 17:42] LABS: FLUID LD 223 U/L; FLUID TYPE ASCITIES FLUID
[2016-11-24 18:17] LABS: FLUID APPEARANCE HAZY; FLUID LYMPHOCYTES 46 %; FLUID MONOCYTES 22 %; FLUID NEUTROPHILS 24 %; FLUID RBC EST 2+; FLUID WBC'S 10 /cmm
[2016-11-24 18:20] LABS: FLUID TYPE ASCITES
[2016-11-24] MEDS: ATORVASTATIN 40 MG TAB PO SCH (21:00)
[2016-11-24] MEDS: morphine 4 MG/ML VIAL IV PRN (21:02)
[2016-11-25] VITALS (13 sets, daily range): BP systolic 100–127; BP diastolic 54–73; PULSE 55–98; RESP 16–20
[2016-11-25] MEDS: ALBUTEROL/IPRATROPIUM (NEB) 3 ML AMP HHN SCH ×6 (01:07→20:12)
[2016-11-25] MEDS: ACCUCHECK XX SCH (02:36)
[2016-11-25] MEDS: FUROSEMIDE 20 MG INJ IV SCH ×2 (06:31→17:56)
[2016-11-25 06:48] LABS: BASOPHILS % 0.5 % (0.0-2.0); EOSINOPHILS # 0.1 10^3/ul (0.0-0.5); EOSINOPHILS % 1.6 % (0.0-7.0); HEMATOCRIT 24.6 % (42.0-52.0); HEMOGLOBIN 8.2 g/dl (14.0-18.0); LYMPHOCYTES # 1.3 10^3/ul (0.8-2.9); LYMPHOCYTES % 25.1 % (15.0-51.0); MEAN CORPUSCULAR HEMOGLOBIN 30.6 pg (29.0-33.0); MEAN CORPUSCULAR HGB CONC 33.1 g/dl (32.0-37.0); MEAN CORPUSCULAR VOLUME 92.3 fl (82.0-101.0); MEAN PLATELET VOLUME 9.9 fl (7.4-10.4); MONOCYTE # 0.5 10^3/ul (0.3-0.9); NEUTROPHIL # 3.4 10^3/ul (1.6-7.5); NEUTROPHILS % 63.8 % (39.0-77.0); PLATELET COUNT 159 10^3/UL (140-440); RED BLOOD COUNT 2.66 10^6/ul (4.70-6.10); RED CELL DISTRIBUTION WIDTH 21.3 % (11.5-14.5); UNCORRECTED WBC 5.3 10^3/ul (4.8-10.8); WHITE BLOOD COUNT 5.3 10^3/ul (4.8-10.8)
[2016-11-25 07:07] LABS: CONDITION 1; LH ANALYZER COMMENTS 1
[2016-11-25 07:09] LABS: POTASSIUM 4.7 mmol/L (3.5-5.1)
[2016-11-25 07:12] LABS: CREATININE 2.1 mg/dl (0.61-1.24)
[2016-11-25 07:13] LABS: CALCIUM 8.4 mg/dl (8.4-10.2); MAGNESIUM 2.1 mg/dl (1.7-2.5); PHOSPHORUS 4.6 mg/dl (2.5-4.9)
[2016-11-25] MEDS: INSULIN ASPART [NOVOLOG] 3 ML PEN SC SCH ×4 (07:39→21:00)
[2016-11-25] MEDS: ASPIRIN 81 MG TAB PO SCH (09:07)
[2016-11-25] MEDS: FAMOTIDINE 20 MG TAB PO SCH (09:08)
--- NOTE | 2016-11-25 09:19 | PN ---
Date/Time of Note Date/Time of Note DATE: 11/25/16 TIME: 09:13 Assessment/Plan VTE Prophylaxis VTE Prophylaxis Intervention: contraindicated VTE Contraindication Reason: blood coagulation disorder Lines/Catheters IV C[facility]ter Type (from [facility]): Saline Lock Urinary Cath still in place: No Assessment/Plan Assessment/Plan 1. Shortness of breath, secondary to large pleural effusion. - s/p thoracentesis -looks infectious in nature- will defer to pulm, appreciate pulm c /s - with hemoptysis - sequelae of strep pneumo vs overt heart failure - send out for sputum cultures 2. Chest pain - pleuritic in nature - most likely secondary to above. 3. Abdominal distention, from ascites, likely secondary to alcoholic liver disease - monitor acute changes, abd x-ray negative - US paracentesis - f/u cytology 4. Cardiomyopathy with systolic dysfunction -EF 35% , Stage III/IV diastolic dysfunction, strict I/O's, diuresis - stress test prior to surgical procedures as per cardio 5. Chronic kidney disease - renally adjust medications, avoid nephrotoxins - Hepatorenal with cardio renal - if worsening - possible dialysis - appreciate nephro consult - diamox added 6. Hyperkalemia - if > 5.5 - kayexlate - will give 15 mg po given 7. Atrial fibrillation, rate controlled and in sinus - hold anticoagulation - 2 /2 to coagulopathy 8. Coagulopathy - hepatitis panel Hep B core antigen + - most likely chronic liver disease 9. Gastric and colon cancer status post surgery and chemo. 10. Hepatitis B - chronic - standard precautions 11. Alcohol abuse - monitor labs 12. Megaloblastic anemia, most likely secondary to anemia of chronic disease. - nl folate/vitb12 13. GI ppx - protonix 14. DVT ppx - scds dispo - f/u labs, f/u cytology paracenteiss - hold off on antibiotics until culture grows, stress test as per cardio this progress note took greater than 30 minutes to complete Subjective 24 Hr Interval Summary Free Text/Dictation Patient is doing better. Sitting upright in the chair. He underwent successful paracentesis yesterday. Spoke to the patient the family present at bedside about the care plan. 15 minutes spent. Exam/Review of Systems Vital Signs Vitals Vital Signs Date Time Temp Pulse Resp B/P Pulse Ox O2 Delivery O2 Flow Rate FiO2 11/25/16 08:32 61 11/25/16 08:09 18 95 21 11/25/16 07:40 Nasal Cannula 2.0 11/25/16 07:10 98.1 127/73 Intake and Output 11/24/16 11/24/16 11/25/16 15:00 23:00 07:00 Intake Total 200 ml Output Total 1100 ml Balance -900 ml Exam Gen Ana: mild shortness of breath, AAOx4 HEENT: NC/AT, PERRLA, EOMI, no pharyngeal erythema, no tonsillar exudates, no lymphadenopathy, no JVD, no carotid bruits NECK: supple, no thyromegaly THORAX: symmetrical, no obvious deformities CV: S1S2, RRR, no M/G/R Lungs: right diminished breath sounds, crackles - end expiratory wheezing - scattered rhonchi - stable Abd: soft, NT/distention, mild fluid wave, +BS, no rebound, no guarding, neg HSM EXT: no edema, no ecchymosis, no clubbing, FROM Neuro: CN II-XII grossly intact, no focal deficits Psych: fair mood and affect Skin: C/D/I Results Result Diagram: 11/25/16 0555 11/25/16 0555 Results 24 hrs Laboratory Tests Test 11/24/16 11:54 11/24/16 12:15 11/24/16 16:38 11/24/16 17:33 Lab Scanned Report REFERENCE LAB Bedside Glucose 170 125 Body Fluid Appearance HAZY Body Fluid Color YELLOW Body Fluid Lactate Dehydrogenase 223 Body Fluid Lymphocytes (%) 46 Body Fluid Monocytes % 22 Body Fluid Neutrophils % 24 Body Fluid Other Cells (%) 8 Body Fluid RBC 2+ Body Fluid Total Protein 4.0 Body Fluid Type ASCITES Body Fluid Volume 275.0 Body Fluid WBC 10 Test 11/24/16 21:04 11/25/16 02:28 11/25/16 05:55 11/25/16 07:35 Bedside Glucose 184 147 121 Anion Gap 16 Basophils # 0.0 Basophils % 0.5 Blood Morphology Comment Blood Urea Nitrogen 48 H Calcium Level 8.4 Carbon Dioxide Level 25 Chloride Level 104 Creatinine 2.10 H Eosinophils # 0.1 Eosinophils % 1.6 Glucose Level 112 Hematocrit 24.6 L Hemoglobin 8.2 L Lymphocytes # 1.3 Lymphocytes % 25.1 Magnesium Level 2.1 Mean Corpuscular Hemoglobin 30.6 Mean Corpuscular Hemoglobin Concent 33.1 Mean Corpuscular Volume 92.3 Mean Platelet Volume 9.9 Monocytes # 0.5 Monocytes % 9.0 Neutrophils # 3.4 Neutrophils % 63.8 Nucleated Red Blood Cells # 0.0 Nucleated Red Blood Cells % 0.0 Phosphorus Level 4.6 Platelet Count 159 Potassium Level 4.7 Red Blood Count 2.66 L Red Cell Distribution Width 21.3 H Sodium Level 140 White Blood Count 5.3 Medications Medications Current Medications Diagnostic Test (Pha) (Accucheck) 1 ea 02 XX Last administered on 11/25/16 02: 36; Admin Dose 1 EA; Start 11/19/16 at 02:00 Acetaminophen (Tylenol Tab) 650 mg Q6H PRN PO PAIN AND OR ELEVATED TEMP; Start 11/19/16 at 01:00 Ondansetron HCl (Zofran Inj) 4 mg Q6H PRN IV NAUSEA AND/OR VOMITING Last administered on 11/19/16 03:35; Admin Dose 4 MG; Start 11/19/16 at 01:00 Aspirin (Aspirin) 81 mg DAILY PO Last administered on 11/25/16 09:07; Admin Dose 81 MG; Start 11/19/16 at 09:00 Atorvastatin Calcium (Lipitor) 40 mg HS PO Last administered on 11/24/16at 21: 00; Admin Dose 40 MG; Start 11/19/16 at 21:00 Benazepril HCl (Lotensin) 20 mg DAILY PO Last administered on 11/19/16at 09:03 ; Admin Dose 20 MG; Start 11/19/16 at 09:00; Status Future Hold Famotidine (Pepcid) 20 mg DAILY PO Last administered on 11/25/16 09:08; Admin Dose 20 MG; Start 11/19/16 at 09:00 Morphine Sulfate (morphine) 3 mg Q4H PRN IV PAIN Last administered on at 21:02; Admin Dose 3 MG; Start 11/19/16 at 01:30 Metoclopramide HCl (Reglan) 10 mg Q6H PRN IV VOMITTING Last administered on at 05:21; Admin Dose 10 MG; Start 11/19/16 at 05:00 Miscellaneous Information 1 ea NOTE XX ; Start 11/20/16 at 07:30 Glucose (Glutose) 15 gm Q15M PRN PO DECREASED GLUCOSE; Start 11/20/16 at 07:30 Glucose (Glutose) 22.5 gm Q15M PRN PO DECREASED GLUCOSE; Start 11/20/16 at 07: 30 Dextrose (D50w Syringe) 25 ml Q15M PRN IV DECREASED GLUCOSE; Start 11/20/16 at 07:30 Dextrose (D50w Syringe) 50 ml Q15M PRN IV DECREASED GLUCOSE; Start 11/20/16 at 07:30 Glucagon (Glucagen) 1 mg Q15M PRN IM DECREASED GLUCOSE; Start 11/20/16 at 07: 30 Glucose (Glutose) 15 gm Q15M PRN BUCCAL DECREASED GLUCOSE; Start 11/20/16 at 07:30 Carvedilol (Coreg) 3.125 mg BID PO Last administered on 11/25/16 09:08; Admin Dose 3.125 MG; Start 11/21/16 at 09:00 AZRA GUPTA MD Nov 25, 2016 09:18
[2016-11-25] MEDS ORDERED: METOLAZONE 5 MG TAB PO ONE (11:00)
--- NOTE | 2016-11-25 11:10 | CONS ---
Date/Time of Note Date/Time of Note DATE: 11/25/16 TIME: 11:09 Consult Date/Type/Reason Admit Date/Time Nov 18, 2016 at 20:54 Type of Consultation: pulmonary Subjective Status post paracentesis currently stable Objective Vital Signs Date Time Temp Pulse Resp B/P Pulse Ox O2 Delivery O2 Flow Rate FiO2 11/25/16 08:32 61 11/25/16 08:09 18 95 21 11/25/16 07:40 Nasal Cannula 2.0 11/25/16 07:10 98.1 127/73 Intake and Output 11/24/16 11/24/16 11/25/16 15:00 23:00 07:00 Intake Total 200 ml Output Total 1100 ml Balance -900 ml GENERAL: Elderly gentleman appears comfortable at rest frail with moderate weakness VITAL SIGNS: per chart NECK: Supple. No JVD or lymphadenopathy. CARDIAC EXAM: S1, S2. No added sounds or murmurs. CHEST: Diminished air entry right lung ABDOMEN: Soft, nontender. No guarding or rebound. EXTREMITIES: No cyanosis, clubbing or edema. NEUROLOGIC: Generalized weakness. No focal deficits. Results/Medications Result Diagram: 11/25/16 0555 11/25/16 0555 Results 24 hrs Laboratory Tests Test 11/24/16 11:54 11/24/16 12:15 11/24/16 16:38 11/24/16 17:33 Lab Scanned Report REFERENCE LAB Bedside Glucose 170 125 Body Fluid Appearance HAZY Body Fluid Color YELLOW Body Fluid Lactate Dehydrogenase 223 Body Fluid Lymphocytes (%) 46 Body Fluid Monocytes % 22 Body Fluid Neutrophils % 24 Body Fluid Other Cells (%) 8 Body Fluid RBC 2+ Body Fluid Total Protein 4.0 Body Fluid Type ASCITES Body Fluid Volume 275.0 Body Fluid WBC 10 Test 11/24/16 21:04 11/25/16 02:28 11/25/16 05:55 11/25/16 07:35 Bedside Glucose 184 147 121 Anion Gap 16 Basophils # 0.0 Basophils % 0.5 Blood Morphology Comment Blood Urea Nitrogen 48 H Calcium Level 8.4 Carbon Dioxide Level 25 Chloride Level 104 Creatinine 2.10 H Eosinophils # 0.1 Eosinophils % 1.6 Glucose Level 112 Hematocrit 24.6 L Hemoglobin 8.2 L Lymphocytes # 1.3 Lymphocytes % 25.1 Magnesium Level 2.1 Mean Corpuscular Hemoglobin 30.6 Mean Corpuscular Hemoglobin Concent 33.1 Mean Corpuscular Volume 92.3 Mean Platelet Volume 9.9 Monocytes # 0.5 Monocytes % 9.0 Neutrophils # 3.4 Neutrophils % 63.8 Nucleated Red Blood Cells # 0.0 Nucleated Red Blood Cells % 0.0 Phosphorus Level 4.6 Platelet Count 159 Potassium Level 4.7 Red Blood Count 2.66 L Red Cell Distribution Width 21.3 H Sodium Level 140 White Blood Count 5.3 Test 11/25/16 11:04 Bedside Glucose 170 Medications Current Medications Diagnostic Test (Pha) (Accucheck) 1 ea 02 XX Last administered on 11/25/16 02: 36; Admin Dose 1 EA; Start 11/19/16 at 02:00 Acetaminophen (Tylenol Tab) 650 mg Q6H PRN PO PAIN AND OR ELEVATED TEMP; Start 11/19/16 at 01:00 Ondansetron HCl (Zofran Inj) 4 mg Q6H PRN IV NAUSEA AND/OR VOMITING Last administered on 11/19/16 03:35; Admin Dose 4 MG; Start 11/19/16 at 01:00 Aspirin (Aspirin) 81 mg DAILY PO Last administered on 11/25/16 09:07; Admin Dose 81 MG; Start 11/19/16 at 09:00 Atorvastatin Calcium (Lipitor) 40 mg HS PO Last administered on 11/24/16at 21: 00; Admin Dose 40 MG; Start 11/19/16 at 21:00 Benazepril HCl (Lotensin) 20 mg DAILY PO Last administered on 11/19/16at 09:03 ; Admin Dose 20 MG; Start 11/19/16 at 09:00; Status Future Hold Famotidine (Pepcid) 20 mg DAILY PO Last administered on 11/25/16 09:08; Admin Dose 20 MG; Start 11/19/16 at 09:00 Morphine Sulfate (morphine) 3 mg Q4H PRN IV PAIN Last administered on at 21:02; Admin Dose 3 MG; Start 11/19/16 at 01:30 Metoclopramide HCl (Reglan) 10 mg Q6H PRN IV VOMITTING Last administered on at 05:21; Admin Dose 10 MG; Start 11/19/16 at 05:00 Miscellaneous Information 1 ea NOTE XX ; Start 12/27/16 at 07:30 Glucose (Glutose) 15 gm Q15M PRN PO DECREASED GLUCOSE; Start 11/20/16 at 07:30 Glucose (Glutose) 22.5 gm Q15M PRN PO DECREASED GLUCOSE; Start 11/20/16 at 07: 30 Dextrose (D50w Syringe) 25 ml Q15M PRN IV DECREASED GLUCOSE; Start 11/20/16 at 07:30 Dextrose (D50w Syringe) 50 ml Q15M PRN IV DECREASED GLUCOSE; Start 11/20/16 at 07:30 Glucagon (Glucagen) 1 mg Q15M PRN IM DECREASED GLUCOSE; Start 11/20/16 at 07: 30 Glucose (Glutose) 15 gm Q15M PRN BUCCAL DECREASED GLUCOSE; Start 11/20/16 at 07:30 Carvedilol (Coreg) 3.125 mg BID PO Last administered on 11/25/16 09:08; Admin Dose 3.125 MG; Start 11/21/16 at 09:00 Assessment/Plan Chief Complaint/Hosp Course Assessment 1. Loculated right pleural effusion exudative in nature 2. Renal insufficiency 3. Anemia questionable of chronic disease 4. Ascites status post paracentesis Recommendations 1. Thoracic surgery evaluation for video-assisted thoracic decortication 2. Consider correction of anemia preoperatively 3. Renal recommendations 4. DVT and GI prophylaxis 5. Cardiology evaluation preoperative Overall prognosis guarded Problems: JACQUELIN MANUEL MD, [facility] Nov 25, 2016 11:09
--- NOTE | 2016-11-25 12:48 | CONS ---
Date/Time of Note Date/Time of Note DATE: 11/25/16 TIME: 12:39 Assessment/Plan Assessment/Plan Additional Assessment/Plan Respiratory failure Loculated right pleural effusion concerning for exudative process Cardiomyopathy with ejection fraction 35% Moderate to severe tricuspid valve regurgitation with PA pressures in the mid 50s -Our patient with improvement in shortness of breath now with increased cough and phlegm production as well as wheezing today. As per our pulmonary colleagues , pleural fluid analysis demonstrated demonstrated likely exudative process. Would consider antibiotics as per the primary team given exudative process, diuretics as per our renal colleagues. Given active wheezing, unable to do vasodilatory nuclear stress testing at the current time. Consultation Date/Type/Reason Admit Date/Time Nov 18, 2016 at 20:54 Initial Consult Date Type of Consultation: cv 24 HR Interval Summary Free Text/Dictation Shortness of breath is better but still coughing with phlegm production and wheezing Exam/Review of Systems Vital Signs Vitals Vital Signs Date Time Temp Pulse Resp B/P Pulse Ox O2 Delivery O2 Flow Rate FiO2 11/25/16 11:31 98.4 62 20 113/55 96 11/25/16 08:09 21 11/25/16 07:40 Nasal Cannula 2.0 Intake and Output 11/24/16 11/24/16 11/25/16 15:00 23:00 07:00 Intake Total 200 ml Output Total 1100 ml Balance -900 ml Exam Coughing throughout examination Constitutional: alert, frail, oriented Head: normocephalic Neck: supple Respiratory: other (course breath sounds bilaterally with mild scattered wheezing, decrease breath sounds right base) Cardiovascular: other (S1 and S2 heard), regular rate and rhythm Gastrointestinal: bowel sounds, non-tender, soft Extremities: edema Results Result Diagram: 11/25/16 0555 11/25/16 0555 Results 24 hrs Laboratory Tests Test 11/24/16 16:38 11/24/16 17:33 11/24/16 21:04 11/25/16 02:28 Body Fluid Appearance HAZY Body Fluid Color YELLOW Body Fluid Lactate Dehydrogenase 223 Body Fluid Lymphocytes (%) 46 Body Fluid Monocytes % 22 Body Fluid Neutrophils % 24 Body Fluid Other Cells (%) 8 Body Fluid RBC 2+ Body Fluid Total Protein 4.0 Body Fluid Type ASCITES Body Fluid Volume 275.0 Body Fluid WBC 10 Bedside Glucose 125 184 147 Test 11/25/16 05:55 11/25/16 07:35 11/25/16 11:04 Anion Gap 16 Basophils # 0.0 Basophils % 0.5 Blood Morphology Comment Blood Urea Nitrogen 48 H Calcium Level 8.4 Carbon Dioxide Level 25 Chloride Level 104 Creatinine 2.10 H Eosinophils # 0.1 Eosinophils % 1.6 Glucose Level 112 Hematocrit 24.6 L Hemoglobin 8.2 L Lymphocytes # 1.3 Lymphocytes % 25.1 Magnesium Level 2.1 Mean Corpuscular Hemoglobin 30.6 Mean Corpuscular Hemoglobin Concent 33.1 Mean Corpuscular Volume 92.3 Mean Platelet Volume 9.9 Monocytes # 0.5 Monocytes % 9.0 Neutrophils # 3.4 Neutrophils % 63.8 Nucleated Red Blood Cells # 0.0 Nucleated Red Blood Cells % 0.0 Phosphorus Level 4.6 Platelet Count 159 Potassium Level 4.7 Red Blood Count 2.66 L Red Cell Distribution Width 21.3 H Sodium Level 140 White Blood Count 5.3 Bedside Glucose 121 170 Medications Medications Current Medications Diagnostic Test (Pha) (Accucheck) 1 ea 02 XX Last administered on 11/25/16 02: 36; Admin Dose 1 EA; Start 11/19/16 at 02:00 Acetaminophen (Tylenol Tab) 650 mg Q6H PRN PO PAIN AND OR ELEVATED TEMP; Start 11/19/16 at 01:00 Ondansetron HCl (Zofran Inj) 4 mg Q6H PRN IV NAUSEA AND/OR VOMITING Last administered on 11/19/16 03:35; Admin Dose 4 MG; Start 11/19/16 at 01:00 Aspirin (Aspirin) 81 mg DAILY PO Last administered on 11/25/16 09:07; Admin Dose 81 MG; Start 11/19/16 at 09:00 Atorvastatin Calcium (Lipitor) 40 mg HS PO Last administered on 11/24/16at 21: 00; Admin Dose 40 MG; Start 11/19/16 at 21:00 Benazepril HCl (Lotensin) 20 mg DAILY PO Last administered on 11/19/16at 09:03 ; Admin Dose 20 MG; Start 11/19/16 at 09:00; Status Future Hold Famotidine (Pepcid) 20 mg DAILY PO Last administered on 11/25/16 09:08; Admin Dose 20 MG; Start 11/19/16 at 09:00 Morphine Sulfate (morphine) 3 mg Q4H PRN IV PAIN Last administered on at 21:02; Admin Dose 3 MG; Start 11/19/16 at 01:30 Metoclopramide HCl (Reglan) 10 mg Q6H PRN IV VOMITTING Last administered on at 05:21; Admin Dose 10 MG; Start 11/19/16 at 05:00 Miscellaneous Information 1 ea NOTE XX ; Start 11/20/16 at 07:30 Glucose (Glutose) 15 gm Q15M PRN PO DECREASED GLUCOSE; Start 11/20/16 at 07:30 Glucose (Glutose) 22.5 gm Q15M PRN PO DECREASED GLUCOSE; Start 11/20/16 at 07: 30 Dextrose (D50w Syringe) 25 ml Q15M PRN IV DECREASED GLUCOSE; Start 11/20/16 at 07:30 Dextrose (D50w Syringe) 50 ml Q15M PRN IV DECREASED GLUCOSE; Start 11/20/16 at 07:30 Glucagon (Glucagen) 1 mg Q15M PRN IM DECREASED GLUCOSE; Start 11/20/16 at 07: 30 Glucose (Glutose) 15 gm Q15M PRN BUCCAL DECREASED GLUCOSE; Start 11/20/16 at 07:30 Carvedilol (Coreg) 3.125 mg BID PO Last administered on 11/25/16 09:08; Admin Dose 3.125 MG; Start 11/21/16 at 09:00 Timbo Raygoza DO Nov 25, 2016 12:47
[2016-11-25] MEDS: morphine 4 MG/ML VIAL IV PRN (15:54)
--- NOTE | 2016-11-25 18:10 | PN ---
DATE: 11/25/2016 SUBJECTIVE: The patient is stable. He had paracentesis yesterday and tolerated it well. The patie nt is having good urinary output. No other acute events noted. No hemoptysis, hematemesis, hematoc hezia. OBJECTIVE: VITAL SIGNS: Blood pressure is 127/73, respiration is 20, pulse 61, temperature 98.1. INPUT AND OUTPUT: The patient had 200 in with 1100 out. HEENT: Head is normocephalic. NECK: Supple. HEART: Regular rate. LUNGS: Show diminished breath sounds at the base. ABDOMEN: Soft, nontender to palpation. No rebound or guarding. EXTREMITIES: Negative for clubbing, cyanosis. Positive edema. DERMATOLOGIC: No rashes. MUSCULOSKELETAL: No joint effusions. NEUROLOGIC: No change in exam. MEDICATIONS: The patient's medications have been reviewed. LABORATORY DATA: Shows sodium 140, potassium 4.7, chloride 104, BUN 48, creatinine 2.10. White cou nt 5.3, hemoglobin 8.2, hematocrit 24.6, and platelet count is 159. ASSESSMENT AND PLAN: 1. Nonoliguric acute kidney injury on top of chronic kidney disease stage IIIB/IV with a baseline c reatinine 1.52 mg/dL. Etiology of acute kidney injury is secondary to multifactorial cause include cardiorenal syndrome, hemodynamics. The patient's renal function has been improving after holding A CE inhibitor and adjusting diuretics. At this point, we will continue current treatment plan. We w ill continue Lasix 20 mg b.i.d. 2. We will give the patient metolazone x1 today to augment diuresis and monitor closely. 3. Hyperkalemia, mild, improved. Continue low-potassium diet. 4. Acute systolic, diastolic heart failure. The patient is currently decompensated as stated above . Continue current diuretic regimen. Continue to monitor. 5. Anemia of chronic disease. Continue to monitor H and H levels. Continue Epogen. 6. Mineral bone disorder. Continue to monitor calcium and phosphorus levels. 7. Pleural effusion, loculated. Etiology is multifactorial, in part due to CHF. The patient is pe nding possible decortication by Dr. Diaz. 8. Acute respiratory failure secondary to congestive heart failure exacerbation and pleural effusio n. Continue medical management. 9. Ascites. Etiology is possibly cardiac in nature. The patient is status post paracentesis, 500 mL removed. 10. Atrial fibrillation. Continue current medical management. 11. History of gastric and colon CA status post surgery and chemotherapy. 12. History of coronary artery disease, cardiomyopathy. Continue medical management as stated dax solares. Dictated By: ANIL PERALES/LANG Conf#: [id number] DID#: [id number]
--- NOTE | 2016-11-25 19:55 | PN ---
Date/Time of Note Date/Time of Note DATE: 11/25/16 TIME: 19:53 Assessment/Plan Lines/Catheters IV Catheter Type (from Nrsg): Saline Lock [place] in Place (from Nrsg): No Assessment/Plan Chief Complaint/Hosp Course IMPRESSION: Recurrent pleural effusion, no signs of carcinoma. The patient has a loculated right-sided effusion. INR 1.28 HGB 8.2 Would need right video-assisted thoracic surgery, decortication after cardiology clearance, and correction of INR and anemia. Cardiology evaluation in progress Problems: Subjective 24 Hr Interval Summary Constitutional: improved Pain Control: mild Exam/Review of Systems Vital Signs Vitals Vital Signs Date Time Temp Pulse Resp B/P Pulse Ox O2 Delivery O2 Flow Rate FiO2 11/25/16 19:16 98.1 56 16 103/59 97 11/25/16 17:09 21 11/25/16 07:40 Nasal Cannula 2.0 Intake and Output 11/24/16 11/24/16 11/25/16 15:00 23:00 07:00 Intake Total 200 ml Output Total 1100 ml Balance -900 ml Exam ENMT: mucosa pink and moist, nl external ears & nose, nl lips & teeth, nl nasal mucosa & septum Neck: non-tender, supple Respiratory: clear to auscultation, normal air movement Cardiovascular: nl pulses, regular rate and rhythm, No S3, No S4, No bruits, No diastolic murmur, No edema, No gallop, No irregular rhythm, No jugular venous distention (JVD), No murmurs/extra sounds, No other, No rub, No systolic murmur Results Result Diagram: 11/25/16 0555 11/25/16 0555 DIEGO WEIR MD Nov 25, 2016 19:55
[2016-11-25] MEDS: ATORVASTATIN 40 MG TAB PO SCH (21:22)
[2016-11-26] VITALS (12 sets, daily range): BP systolic 106–158; BP diastolic 56–74; PULSE 59–61; RESP 16–20
[2016-11-26] MEDS: ALBUTEROL/IPRATROPIUM (NEB) 3 ML AMP HHN SCH ×6 (01:45→21:12)
[2016-11-26] MEDS: ACCUCHECK XX SCH ×2 (02:00→21:00)
[2016-11-26] MEDS: FUROSEMIDE 20 MG INJ IV SCH ×2 (05:54→17:53)
[2016-11-26] MEDS: INSULIN ASPART [NOVOLOG] 3 ML PEN SC SCH ×4 (07:47→20:59)
[2016-11-26] MEDS: ASPIRIN 81 MG TAB PO SCH (08:16)
[2016-11-26] MEDS: FAMOTIDINE 20 MG TAB PO SCH (08:16)
--- NOTE | 2016-11-26 09:54 | PN ---
DATE: 11/26/2016 SUBJECTIVE: The patient is stable, no acute events overnight. No fevers, chills, nausea, vomiting. No shortness of breath. OBJECTIVE: VITAL SIGNS: Blood pressure 108/56, respiration 20, pulse 63, temperature 98.5. I's and O's: The patient had 1200 in with 1900 out. HEENT: Head is normocephalic. NECK: Supple. HEART: Regular rate. LUNGS: Show diminished breath sounds at the base. ABDOMEN: Soft, nontender to palpation. No rebound or guarding. EXTREMITIES: Negative for clubbing, cyanosis. Positive edema. DERMATOLOGIC: No rash. MUSCULOSKELETAL: No joint effusions. NEUROLOGIC: No change in exam. LABORATORY DATA: Currently pending. ASSESSMENT AND PLAN: 1. Nonoliguric acute kidney injury on top of chronic kidney disease stage IIIB/IV with a baseline c reatinine of 1.52 mg/dL. Etiology of acute kidney injury secondary to cardiorenal syndrome, hemodyn amics. The patient's renal function has been improving after discontinuing angiotensin converting e nzyme inhibitor. Will continue diuretic therapy. We will increase Lasix to 40 mg b.i.d., monitor r enal function closely. 2. Hyperkalemia, improved. Continue to monitor. Continue low-potassium diet. 3. Acute systolic, diastolic heart failure. The patient is currently decompensated, as stated abov e. Continue current diuretic regimen. 4. Anemia of chronic disease. Continue to monitor hemoglobin and hematocrit levels, continue Epoge n. 5. Mineral bone disorder. Will continue to monitor calcium, phosphorus levels. No need for phosph ate binders. 6. Pleural effusion, loculated. The patient is status post thoracentesis, pending possible decorti cation by Cardiothoracic Surgery. 7. Acute respiratory failure, secondary to congestive heart failure. Continue current medical paulette gement. 8. Ascites, possibly cardiac in nature. Patient is status post paracentesis. 9. Atrial fibrillation, current medical management. 10. History of gastric and colon cancer, status post surgery and chemotherapy. 11. History of coronary artery disease /cardiomyopathy. Continue medical management as stated abov e. Dictated By: ANIL PERALES/LANG Conf#: [id number] DID#: [id number]
--- NOTE | 2016-11-26 12:09 | PN ---
Date/Time of Note Date/Time of Note DATE: 11/26/16 TIME: 11:55 Assessment/Plan VTE Prophylaxis VTE Prophylaxis Intervention: contraindicated VTE Contraindication Reason: blood coagulation disorder Lines/Catheters IV [facility]ter Type (from [facility]): Saline Lock Urinary Cath still in place: No Assessment/Plan Chief Complaint/Hosp Course Assessment/Plan: 66 M with: 1. Shortness of breath, secondary to large pleural effusion. - s/p thoracentesis - exudative in nature, also with hemoptysis - sequelae of strep pneumo vs overt heart failure - appreciate pulm- send out for sputum cultures, consider abx as well - per CTS eval - recommend VATS after cardiology clearance, and correction of INR and anemia. 2. Chest pain - pleuritic in nature - most likely secondary to above. - monitor 3. Abdominal distention, from ascites, likely secondary to alcoholic liver disease - s/p paracentesis - monitor acute changes, abd x-ray negative - f/u cytology 4. Cardiomyopathy with systolic dysfunction - EF 35%, Stage III/IV diastolic dysfunction, - strict I/O's, diuresis - stress test prior to surgical procedures as per cardio 5. Chronic kidney disease -Nonoliguric acute kidney injury on top of chronic kidney disease stage IIIB/IV with a baseline creatinine of 1.52 mg/dL. Hepatorenal with cardio renal - renally adjust medications, avoid nephrotoxins - if worsening - possible dialysis - appreciate nephro consult - diamox added 6. Hyperkalemia - presently stable - if > 5.5 - kayexlate - will give 15 mg po given 7. Atrial fibrillation, rate controlled and in sinus - hold anticoagulation - 2/2 to coagulopathy 8. Coagulopathy - hepatitis panel Hep B core antigen + - most likely chronic liver disease - monitor 9. Gastric and colon cancer status post surgery and chemo. 10. Hepatitis B - chronic - standard precautions 11. Alcohol abuse - monitor labs 12. Megaloblastic anemia, most likely secondary to anemia of chronic disease. - nl folate/vitb12 13. GI ppx - protonix 14. DVT ppx - scds dispo - f/u labs, f/u cytology paracentesis -, stress test as per cardio Problems: Subjective 24 Hr Interval Summary Free Text/Dictation No acute events overnight, seen by renal team in AM. Exam/Review of Systems Vital Signs Vitals Vital Signs Date Time Temp Pulse Resp B/P Pulse Ox O2 Delivery O2 Flow Rate FiO2 11/26/16 11:46 98.6 62 20 106/64 100 11/26/16 10:05 21 11/25/16 21:00 Nasal Cannula 2.0 Intake and Output 11/25/16 11/25/16 11/26/16 15:00 23:00 07:00 Intake Total 720 ml 500 ml Output Total 1250 ml 700 ml Balance -530 ml -200 ml Exam Gen Ana: mild shortness of breath, AAOx4 HEENT: NC/AT, PERRLA, EOMI NECK: supple, no thyromegaly THORAX: symmetrical, no obvious deformities CV: S1S2, RRR, no M/G/R Lungs: right some diminished breath sounds, crackles - end expiratory wheezing - scattered rhonchi - stable Abd: soft, NT/distention, mild fluid wave, +BS, no rebound, no guarding, neg HSM EXT: no edema, no ecchymosis, no clubbing, FROM Neuro: CN II-XII grossly intact, no focal deficits Psych: fair mood and affect Skin: C/D/I Results Result Diagram: 11/25/16 0555 11/25/16 0555 Results 24 hrs Laboratory Tests Test 11/25/16 17:09 11/25/16 20:20 11/26/16 07:31 Bedside Glucose 151 148 98 Medications Medications Current Medications Diagnostic Test (Pha) (Accucheck) 1 ea 02 XX Last administered on 11/25/16 02: 36; Admin Dose 1 EA; Start 11/19/16 at 02:00 Acetaminophen (Tylenol Tab) 650 mg Q6H PRN PO PAIN AND OR ELEVATED TEMP; Start 11/19/16 at 01:00 Ondansetron HCl (Zofran Inj) 4 mg Q6H PRN IV NAUSEA AND/OR VOMITING Last administered on 11/19/16at 03:35; Admin Dose 4 MG; Start 11/19/16 at 01:00 Aspirin (Aspirin) 81 mg DAILY PO Last administered on 11/26/16 08:16; Admin Dose 81 MG; Start 11/19/16 at 09:00 Atorvastatin Calcium (Lipitor) 40 mg HS PO Last administered on 11/25/16 21:22 ; Admin Dose 40 MG; Start 11/19/16 at 21:00 Benazepril HCl (Lotensin) 20 mg DAILY PO Last administered on 11/19/16at 09:03 ; Admin Dose 20 MG; Start 11/19/16 at 09:00; Status Future Hold Famotidine (Pepcid) 20 mg DAILY PO Last administered on 11/26/16 08:16; Admin Dose 20 MG; Start 11/19/16 at 09:00 Morphine Sulfate (morphine) 3 mg Q4H PRN IV PAIN Last administered on 11/25/16 15:54; Admin Dose 3 MG; Start 11/19/16 at 01:30 Metoclopramide HCl (Reglan) 10 mg Q6H PRN IV VOMITTING Last administered on at 05:21; Admin Dose 10 MG; Start 11/19/16 at 05:00 Miscellaneous Information 1 ea NOTE XX ; Start 11/20/16 at 07:30 Glucose (Glutose) 15 gm Q15M PRN PO DECREASED GLUCOSE; Start 11/20/16 at 07:30 Glucose (Glutose) 22.5 gm Q15M PRN PO DECREASED GLUCOSE; Start 11/20/16 at 07: 30 Dextrose (D50w Syringe) 25 ml Q15M PRN IV DECREASED GLUCOSE; Start 11/20/16 at 07:30 Dextrose (D50w Syringe) 50 ml Q15M PRN IV DECREASED GLUCOSE; Start 11/20/16 at 07:30 Glucagon (Glucagen) 1 mg Q15M PRN IM DECREASED GLUCOSE; Start 11/20/16 at 07: 30 Glucose (Glutose) 15 gm Q15M PRN BUCCAL DECREASED GLUCOSE; Start 11/20/16 at 07:30 Carvedilol (Coreg) 3.125 mg BID PO Last administered on 11/25/16 21:23; Admin Dose 3.125 MG; Start 11/21/16 at 09:00 ANA MARÍA RAND Nov 26, 2016 12:06
[2016-11-26 12:12] LABS: POTASSIUM 4.1 mmol/L (3.5-5.1)
[2016-11-26 12:14] LABS: CREATININE 1.85 mg/dl (0.61-1.24)
[2016-11-26 12:15] LABS: CALCIUM 8.5 mg/dl (8.4-10.2)
--- NOTE | 2016-11-26 12:55 | CONS ---
Date/Time of Note Date/Time of Note DATE: 11/26/16 TIME: 12:54 Consult Date/Type/Reason Admit Date/Time Nov 18, 2016 at 20:54 Type of Consultation: Pulm Subjective Comfortable. Objective Vital Signs Date Time Temp Pulse Resp B/P Pulse Ox O2 Delivery O2 Flow Rate FiO2 11/26/16 12:14 59 11/26/16 11:46 98.6 20 106/64 100 11/26/16 10:05 21 11/25/16 21:00 Nasal Cannula 2.0 Intake and Output 11/25/16 11/25/16 11/26/16 15:00 23:00 07:00 Intake Total 720 ml 500 ml Output Total 1250 ml 700 ml Balance -530 ml -200 ml GENERAL: Elderly gentleman appears comfortable at rest frail with moderate weakness VITAL SIGNS: per chart NECK: Supple. No JVD or lymphadenopathy. CARDIAC EXAM: S1, S2. No added sounds or murmurs. CHEST: Diminished air entry right lung ABDOMEN: Soft, nontender. No guarding or rebound. EXTREMITIES: No cyanosis, clubbing or edema. NEUROLOGIC: Generalized weakness. No focal deficits. Results/Medications Result Diagram: 11/25/16 0555 11/26/16 1145 Results 24 hrs Laboratory Tests Test 11/25/16 17:09 11/25/16 20:20 11/26/16 07:31 11/26/16 11:45 Bedside Glucose 151 148 98 Anion Gap 16 Blood Urea Nitrogen 41 H Calcium Level 8.5 Carbon Dioxide Level 26 Chloride Level 100 Creatinine 1.85 H Glucose Level 131 Potassium Level 4.1 Sodium Level 138 Test 11/26/16 11:58 Bedside Glucose 136 Medications Current Medications Diagnostic Test (Pha) (Accucheck) 1 ea 02 XX Last administered on 11/25/16 02: 36; Admin Dose 1 EA; Start 11/19/16 at 02:00 Acetaminophen (Tylenol Tab) 650 mg Q6H PRN PO PAIN AND OR ELEVATED TEMP; Start 11/19/16 at 01:00 Ondansetron HCl (Zofran Inj) 4 mg Q6H PRN IV NAUSEA AND/OR VOMITING Last administered on 11/19/16at 03:35; Admin Dose 4 MG; Start 11/19/16 at 01:00 Aspirin (Aspirin) 81 mg DAILY PO Last administered on 11/26/16 08:16; Admin Dose 81 MG; Start 11/19/16 at 09:00 Atorvastatin Calcium (Lipitor) 40 mg HS PO Last administered on 11/25/16 21:22 ; Admin Dose 40 MG; Start 11/19/16 at 21:00 Benazepril HCl (Lotensin) 20 mg DAILY PO Last administered on 11/19/16at 09:03 ; Admin Dose 20 MG; Start 11/19/16 at 09:00; Status Future Hold Famotidine (Pepcid) 20 mg DAILY PO Last administered on 11/26/16 08:16; Admin Dose 20 MG; Start 11/19/16 at 09:00 Morphine Sulfate (morphine) 3 mg Q4H PRN IV PAIN Last administered on 11/25/16 15:54; Admin Dose 3 MG; Start 11/19/16 at 01:30 Metoclopramide HCl (Reglan) 10 mg Q6H PRN IV VOMITTING Last administered on at 05:21; Admin Dose 10 MG; Start 11/19/16 at 05:00 Miscellaneous Information 1 ea NOTE XX ; Start 11/20/16 at 07:30 Glucose (Glutose) 15 gm Q15M PRN PO DECREASED GLUCOSE; Start 11/20/16 at 07:30 Glucose (Glutose) 22.5 gm Q15M PRN PO DECREASED GLUCOSE; Start 11/20/16 at 07: 30 Dextrose (D50w Syringe) 25 ml Q15M PRN IV DECREASED GLUCOSE; Start 11/20/16 at 07:30 Dextrose (D50w Syringe) 50 ml Q15M PRN IV DECREASED GLUCOSE; Start 11/20/16 at 07:30 Glucagon (Glucagen) 1 mg Q15M PRN IM DECREASED GLUCOSE; Start 11/20/16 at 07: 30 Glucose (Glutose) 15 gm Q15M PRN BUCCAL DECREASED GLUCOSE; Start 11/20/16 at 07:30 Carvedilol 3.125 mg 3.125 mg BID PO Last administered on 11/25/16 21:23; Admin Dose 3.125 MG; Start 11/21/16 at 09:00 Levofloxacin/ Dextrose (Levaquin 750 Mg/ D5W 150 ml (Pmx)) 150 ml @ 100 mls/hr Q48H IVPB ; Start 11/26/16 at 12:00 Assessment/Plan Chief Complaint/Hosp Course Assessment 1. Loculated right pleural effusion exudative in nature 2. Renal insufficiency 3. Anemia questionable of chronic disease 4. Ascites status post paracentesis 5. Cardiology pre op eval Recommendations 1. Thoracic surgery evaluation for video-assisted thoracic decortication 2. Consider correction of anemia preoperatively 3. Renal recommendations 4. DVT and GI prophylaxis 5. Cardiology recs Overall prognosis guarded Problems: JACQUELIN MANUEL MD, [facility] Nov 26, 2016 12:55
[2016-11-26] MEDS: LEVOFLOXACIN 750MG/D5W (PMX) 150 ML IVPB SCH (13:15)
--- NOTE | 2016-11-26 14:19 | CONS ---
Date/Time of Note Date/Time of Note DATE: 11/26/16 TIME: 14:17 Assessment/Plan Assessment/Plan Additional Assessment/Plan Respiratory failure Acute decompensated systolic congestive heart failure Loculated right pleural effusion concerning for exudative process Cardiomyopathy with ejection fraction 35% Moderate to severe tricuspid valve regurgitation with PA pressures in the mid 50s -Patient with mild improvement of shortness of breath and less cough, diuretics have been increased by our renal colleagues. Agree with initiation of antibiotics. Would make nothing by mouth after midnight for possible Lexiscan nuclear perfusion study. Consultation Date/Type/Reason Admit Date/Time Nov 18, 2016 at 20:54 Type of Consultation: cv 24 HR Interval Summary Free Text/Dictation Shortness of breath is slightly better with less cough today, denies chest pain Exam/Review of Systems Vital Signs Vitals Vital Signs Date Time Temp Pulse Resp B/P Pulse Ox O2 Delivery O2 Flow Rate FiO2 11/26/16 13:29 64 18 21 11/26/16 11:46 98.6 106/64 100 11/25/16 21:00 Nasal Cannula 2.0 Intake and Output 11/25/16 11/25/16 11/26/16 15:00 23:00 07:00 Intake Total 720 ml 500 ml Output Total 1250 ml 700 ml Balance -530 ml -200 ml Exam No apparent distress Constitutional: alert, frail, oriented Head: normocephalic Neck: supple Respiratory: other (course breath sounds bilaterally, decreased at the right base) Cardiovascular: other (S1-S2 heard), regular rate and rhythm Gastrointestinal: bowel sounds, non-tender, soft Extremities: edema (trace) Results Result Diagram: 11/25/16 0555 11/26/16 1145 Results 24 hrs Laboratory Tests Test 11/25/16 17:09 11/25/16 20:20 11/26/16 07:31 11/26/16 11:45 Bedside Glucose 151 148 98 Anion Gap 16 Blood Urea Nitrogen 41 H Calcium Level 8.5 Carbon Dioxide Level 26 Chloride Level 100 Creatinine 1.85 H Glucose Level 131 Potassium Level 4.1 Sodium Level 138 Test 11/26/16 11:58 Bedside Glucose 136 Medications Medications Current Medications Diagnostic Test (Pha) (Accucheck) 1 ea 02 XX Last administered on 11/25/16t 02: 36; Admin Dose 1 EA; Start 11/19/16 at 02:00 Acetaminophen (Tylenol Tab) 650 mg Q6H PRN PO PAIN AND OR ELEVATED TEMP; Start 11/19/16 at 01:00 Ondansetron HCl (Zofran Inj) 4 mg Q6H PRN IV NAUSEA AND/OR VOMITING Last administered on 11/19/16at 03:35; Admin Dose 4 MG; Start 11/19/16 at 01:00 Aspirin (Aspirin) 81 mg DAILY PO Last administered on 11/26/16 08:16; Admin Dose 81 MG; Start 11/19/16 at 09:00 Atorvastatin Calcium (Lipitor) 40 mg HS PO Last administered on 11/25/16 21:22 ; Admin Dose 40 MG; Start 11/19/16 at 21:00 Benazepril HCl (Lotensin) 20 mg DAILY PO Last administered on 11/19/16at 09:03 ; Admin Dose 20 MG; Start 11/19/16 at 09:00; Status Future Hold Famotidine (Pepcid) 20 mg DAILY PO Last administered on 11/26/16 08:16; Admin Dose 20 MG; Start 11/19/16 at 09:00 Morphine Sulfate (morphine) 3 mg Q4H PRN IV PAIN Last administered on 11/25/16 15:54; Admin Dose 3 MG; Start 11/19/16 at 01:30 Metoclopramide HCl (Reglan) 10 mg Q6H PRN IV VOMITTING Last administered on at 05:21; Admin Dose 10 MG; Start 11/19/16 at 05:00 Miscellaneous Information 1 ea NOTE XX ; Start 11/20/16 at 07:30 Glucose (Glutose) 15 gm Q15M PRN PO DECREASED GLUCOSE; Start 11/20/16 at 07:30 Glucose (Glutose) 22.5 gm Q15M PRN PO DECREASED GLUCOSE; Start 11/20/16 at 07: 30 Dextrose (D50w Syringe) 25 ml Q15M PRN IV DECREASED GLUCOSE; Start 11/20/16 at 07:30 Dextrose (D50w Syringe) 50 ml Q15M PRN IV DECREASED GLUCOSE; Start 11/20/16 at 07:30 Glucagon (Glucagen) 1 mg Q15M PRN IM DECREASED GLUCOSE; Start 11/20/16 at 07: 30 Glucose (Glutose) 15 gm Q15M PRN BUCCAL DECREASED GLUCOSE; Start 11/20/16 at 07:30 Carvedilol 3.125 mg 3.125 mg BID PO Last administered on 11/25/16 21:23; Admin Dose 3.125 MG; Start 11/21/16 at 09:00 Levofloxacin/ Dextrose (Levaquin 750 Mg/ D5W 150 ml (Pmx)) 150 ml @ 100 mls/hr Q48H IVPB Last administered on 11/26/16 13:15; Admin Dose 100 MLS/HR; Start 11/26/16 at 12:00 Timbo Raygoza DO Nov 26, 2016 14:19
--- NOTE | 2016-11-26 17:58 | PN ---
Date/Time of Note Date/Time of Note DATE: 11/26/16 TIME: 17:56 Assessment/Plan Lines/Catheters IV Catheter Type (from Nrs): Saline Lock [place] in Place (from Nrsg): No Assessment/Plan Chief Complaint/Hosp Course IMPRESSION: Recurrent pleural effusion, no signs of carcinoma. The patient has a loculated right-sided effusion. INR 1.28 HGB 8.2 Would need right video-assisted thoracic surgery, decortication after cardiology clearance, and correction of INR and anemia. Cardiology evaluation in progress Problems: Subjective 24 Hr Interval Summary Constitutional: improved Pain Control: mild Exam/Review of Systems Vital Signs Vitals Vital Signs Date Time Temp Pulse Resp B/P Pulse Ox O2 Delivery O2 Flow Rate FiO2 11/26/16 17:12 59 18 99 21 11/26/16 15:56 98.6 158/74 11/25/16 21:00 Nasal Cannula 2.0 Intake and Output 11/25/16 11/25/16 11/26/16 15:00 23:00 07:00 Intake Total 720 ml 500 ml Output Total 1250 ml 700 ml Balance -530 ml -200 ml Exam Neck: non-tender, supple Respiratory: clear to auscultation, normal air movement Cardiovascular: nl pulses, regular rate and rhythm Gastrointestinal: nl liver, spleen, non-tender, soft Results Result Diagram: 11/25/16 0555 11/26/16 1145 DIEGO WEIR MD Nov 26, 2016 17:57
[2016-11-26] MEDS: ATORVASTATIN 40 MG TAB PO SCH (20:53)
[2016-11-27] VITALS (13 sets, daily range): BP systolic 98–117; BP diastolic 62–71; PULSE 57–63; RESP 16–20
[2016-11-27] MEDS: ALBUTEROL/IPRATROPIUM (NEB) 3 ML AMP HHN SCH ×6 (00:59→21:16)
[2016-11-27] MEDS: FUROSEMIDE 20 MG INJ IV SCH ×2 (05:22→18:22)
[2016-11-27 05:54] LABS: BASOPHILS % 0.5 % (0.0-2.0); EOSINOPHILS # 0.1 10^3/ul (0.0-0.5); HEMATOCRIT 28.9 % (42.0-52.0); HEMOGLOBIN 9.7 g/dl (14.0-18.0); LYMPHOCYTES # 1.3 10^3/ul (0.8-2.9); MEAN CORPUSCULAR HEMOGLOBIN 30.5 pg (29.0-33.0); MEAN CORPUSCULAR HGB CONC 33.4 g/dl (32.0-37.0); MEAN CORPUSCULAR VOLUME 91.2 fl (82.0-101.0); MEAN PLATELET VOLUME 9.6 fl (7.4-10.4); MONOCYTE # 0.5 10^3/ul (0.3-0.9); MONOCYTES % 9.4 % (0.0-11.0); NEUTROPHIL # 3.6 10^3/ul (1.6-7.5); NEUTROPHILS % 65.1 % (39.0-77.0); PLATELET COUNT 164 10^3/UL (140-440); RED BLOOD COUNT 3.17 10^6/ul (4.70-6.10); RED CELL DISTRIBUTION WIDTH 19.7 % (11.5-14.5); UNCORRECTED WBC 5.6 10^3/ul (4.8-10.8); WHITE BLOOD COUNT 5.6 10^3/ul (4.8-10.8)
[2016-11-27 05:58] LABS: CONDITION 1; LH ANALYZER COMMENTS 1
[2016-11-27 06:17] LABS: CREATININE 1.65 mg/dl (0.61-1.24); PHOSPHORUS 4.1 mg/dl (2.5-4.9)
[2016-11-27 06:18] LABS: CALCIUM 8.4 mg/dl (8.4-10.2); MAGNESIUM 1.9 mg/dl (1.7-2.5)
[2016-11-27] MEDS: INSULIN ASPART [NOVOLOG] 3 ML PEN SC SCH ×4 (07:55→20:37)
[2016-11-27] MEDS: FAMOTIDINE 20 MG TAB PO SCH (08:33)
[2016-11-27] MEDS: ASPIRIN 81 MG TAB PO SCH (08:33)
[2016-11-27] MEDS ORDERED: METOLAZONE 5 MG TAB PO ONE (09:30)
--- NOTE | 2016-11-27 11:20 | PN ---
Date/Time of Note Date/Time of Note DATE: 11/27/16 TIME: 11:17 Assessment/Plan VTE Prophylaxis VTE Prophylaxis Intervention: contraindicated VTE Contraindication Reason: blood coagulation disorder Lines/Catheters IV [facility]from [facility] Saline Lock Urinary Cath still in place: No Assessment/Plan Chief Complaint/Hosp Course Assessment/Plan: 66 M with: 1. Shortness of breath, secondary to large pleural effusion. - s/p thoracentesis - exudative in nature, also with hemoptysis - sequelae of strep pneumo vs overt heart failure - appreciate pulm- send out for sputum cultures, continue abx as well - per CTS eval - recommend VATS after cardiology clearance, and correction of INR and anemia. - check CBC and INR in AM 2. Chest pain - pleuritic in nature - most likely secondary to above. - monitor, for cardiac stress test today - f/u CV rec's 3. Abdominal distention, from ascites, likely secondary to alcoholic liver disease - s/p paracentesis - monitor acute changes, abd x-ray negative - f/u cytology 4. Cardiomyopathy with systolic dysfunction - EF 35%, Stage III/IV diastolic dysfunction, - strict I/O's, diuresis - stress test (today) prior to surgical procedures as per cardio 5. Chronic kidney disease -Nonoliguric acute kidney injury on top of chronic kidney disease stage IIIB/IV with a baseline creatinine of 1.52 mg/dL. Hepatorenal with cardio renal - renally adjust medications, avoid nephrotoxins - if worsening - possible dialysis - appreciate nephro consult - diamox added 6. Hyperkalemia - presently stable - if > 5.5 - kayexlate - will give 15 mg po given 7. Atrial fibrillation, rate controlled and in sinus - hold anticoagulation - 2/2 to coagulopathy 8. Coagulopathy - hepatitis panel Hep B core antigen + : most likely chronic liver disease - monitor 9. Gastric and colon cancer status post surgery and chemo. 10. Hepatitis B - chronic - standard precautions 11. Alcohol abuse - monitor labs 12. Megaloblastic anemia, most likely secondary to anemia of chronic disease. - nl folate/vitb12 13. GI ppx - protonix 14. DVT ppx - scds dispo - f/u labs, f/u cytology paracentesis -, stress test as per cardio Problems: Subjective 24 Hr Interval Summary Free Text/Dictation Denies cp or SOB, awaiting cardiac stress test for later today. S/P 2 units pRBC transfusion yesterday. Exam/Review of Systems Vital Signs Vitals Vital Signs Date Time Temp Pulse Resp B/P Pulse Ox O2 Delivery O2 Flow Rate FiO2 11/27/16 10:07 66 20 95 21 11/27/16 08:00 Nasal Cannula 2.0 11/27/16 07:50 98.4 107/62 Intake and Output 11/26/16 11/26/16 11/27/16 15:00 23:00 07:00 Intake Total 1000 ml 250 ml Output Total 1200 ml 1150 ml Balance -200 ml -900 ml Exam Gen Ana: NAD, AAOx4 HEENT: NC/AT, PERRLA, EOMI NECK: supple, no thyromegaly THORAX: symmetrical, no obvious deformities CV: S1S2, RRR, no M/G/R Lungs: right some diminished breath sounds, crackles - end expiratory wheezing - scattered rhonchi - stable Abd: soft, NT/distention, mild fluid wave, +BS, no rebound, no guarding, neg HSM EXT: no edema, no ecchymosis, no clubbing, FROM Neuro: CN II-XII grossly intact, no focal deficits Psych: fair mood and affect Skin: C/D/I Results Result Diagram: 11/27/16 0521 11/27/16 0521 Results 24 hrs Laboratory Tests Test 11/26/16 11:45 11/26/16 11:58 11/26/16 16:16 11/26/16 20:59 Anion Gap 16 Blood Urea Nitrogen 41 H Calcium Level 8.5 Carbon Dioxide Level 26 Chloride Level 100 Creatinine 1.85 H Glucose Level 131 Potassium Level 4.1 Sodium Level 138 Bedside Glucose 136 103 112 Test 11/27/16 05:21 11/27/16 07:54 Anion Gap 17 H Basophils # 0.0 Basophils % 0.5 Blood Morphology Comment Blood Urea Nitrogen 34 H Calcium Level 8.4 Carbon Dioxide Level 23 Chloride Level 101 Creatinine 1.65 H Eosinophils # 0.1 Eosinophils % 1.0 Glucose Level 89 # Hematocrit 28.9 L Hemoglobin 9.7 L Lymphocytes # 1.3 Lymphocytes % 24.0 Magnesium Level 1.9 Mean Corpuscular Hemoglobin 30.5 Mean Corpuscular Hemoglobin Concent 33.4 Mean Corpuscular Volume 91.2 Mean Platelet Volume 9.6 Monocytes # 0.5 Monocytes % 9.4 Neutrophils # 3.6 Neutrophils % 65.1 Nucleated Red Blood Cells # 0.0 Nucleated Red Blood Cells % 0.0 Phosphorus Level 4.1 Platelet Count 164 Potassium Level 4.0 Red Blood Count 3.17 L Red Cell Distribution Width 19.7 H Sodium Level 137 White Blood Count 5.6 Bedside Glucose 92 Medications Medications Current Medications Diagnostic Test (Pha) (Accucheck) 1 ea 02 XX Last administered on 11/25/16 02: 36; Admin Dose 1 EA; Start 11/19/16 at 02:00 Acetaminophen (Tylenol Tab) 650 mg Q6H PRN PO PAIN AND OR ELEVATED TEMP; Start 11/19/16 at 01:00 Ondansetron HCl (Zofran Inj) 4 mg Q6H PRN IV NAUSEA AND/OR VOMITING Last administered on 11/19/16at 03:35; Admin Dose 4 MG; Start 11/19/16 at 01:00 Aspirin (Aspirin) 81 mg DAILY PO Last administered on 11/27/16 08:33; Admin Dose 81 MG; Start 11/19/16 at 09:00 Atorvastatin Calcium (Lipitor) 40 mg HS PO Last administered on 11/26/16 20:53 ; Admin Dose 40 MG; Start 11/19/16 at 21:00 Benazepril HCl (Lotensin) 20 mg DAILY PO Last administered on 11/19/16at 09:03 ; Admin Dose 20 MG; Start 11/19/16 at 09:00; Status Future Hold Famotidine (Pepcid) 20 mg DAILY PO Last administered on 11/27/16 08:33; Admin Dose 20 MG; Start 11/19/16 at 09:00 Morphine Sulfate (morphine) 3 mg Q4H PRN IV PAIN Last administered on 11/25/16 15:54; Admin Dose 3 MG; Start 11/19/16 at 01:30 Metoclopramide HCl (Reglan) 10 mg Q6H PRN IV VOMITTING Last administered on at 05:21; Admin Dose 10 MG; Start 11/19/16 at 05:00 Miscellaneous Information 1 ea NOTE XX ; Start 11/20/16 at 07:30 Glucose (Glutose) 15 gm Q15M PRN PO DECREASED GLUCOSE; Start 11/20/16 at 07:30 Glucose (Glutose) 22.5 gm Q15M PRN PO DECREASED GLUCOSE; Start 11/20/16 at 07: 30 Dextrose (D50w Syringe) 25 ml Q15M PRN IV DECREASED GLUCOSE; Start 11/20/16 at 07:30 Dextrose (D50w Syringe) 50 ml Q15M PRN IV DECREASED GLUCOSE; Start 11/20/16 at 07:30 Glucagon (Glucagen) 1 mg Q15M PRN IM DECREASED GLUCOSE; Start 11/20/16 at 07: 30 Glucose (Glutose) 15 gm Q15M PRN BUCCAL DECREASED GLUCOSE; Start 11/20/16 at 07:30 Carvedilol 3.125 mg 3.125 mg BID PO Last administered on 11/27/16 08:33; Admin Dose 3.125 MG; Start 11/21/16 at 09:00 Levofloxacin/ Dextrose (Levaquin 750 Mg/ D5W 150 ml (Pmx)) 150 ml @ 100 mls/hr Q48H IVPB Last administered on 11/26/16 13:15; Admin Dose 100 MLS/HR; Start 11/26/16 at 12:00 ANA MARÍA RAND Nov 27, 2016 11:19
--- NOTE | 2016-11-27 11:42 | PN ---
DATE: 11/27/2016 SUBJECTIVE: The patient is stable, no acute events overnight. No fevers, chills, nausea, vomiting, no shortness of breath. OBJECTIVE: VITAL SIGNS: Blood pressure 107/60, respirations 20, pulse 60, temperature 98.4. I's AND O'S: The patient had 1200 in with 2.3 liters out. HEENT: Head is normocephalic. NECK: Supple. HEART: Regular rate. LUNGS: Show diminished breath sounds at base. ABDOMEN: Soft, nontender to palpation. No rebound or guarding. EXTREMITIES: Negative for clubbing, cyanosis. Positive edema. DERMATOLOGIC: No rashes. MUSCULOSKELETAL: No joint effusions. NEUROLOGIC: No change in exam. MEDICATIONS: The patient's medications have been reviewed. ASSESSMENT AND PLAN: 1. Nonoliguric acute kidney injury on top of chronic kidney disease stage IIIB/IV with previous bas michelle creatinine around 1.5 mg/dL. Etiology of acute kidney injury is secondary to cardiorenal synd kristal, hemodynamics. The patient's renal function has been improving after discontinuing EMMIE inhibit or and intensifying diuretic therapy. At this point, would continue Lasix 40 mg IV b.i.d. Will add metolazone to augment diuresis 5 mg p.o. x1 and monitor renal function. 2. Hyperkalemia, improved. Continue current medical management. Continue low-potassium diet. 3. Acute systolic, diastolic heart failure. The patient is currently decompensated as stated above . Continue current diuretic regimen. Will followup with our cardiology colleagues for further mateo mmendations. 4. Anemia of chronic disease. Continue to monitor H and H levels. Continue Epogen. 5. Mineral bone disorder. Continue to monitor calcium and phosphorus levels. No need for phosphat e binders. 6. Pleural effusion, loculated. The patient is pending possible follow up with cardiothoraci c surgery. 7. Acute respiratory failure secondary to congestive heart failure, improving. Continue medical ma nagement. 8. Ascites, possibly cardiac in nature. The patient is status post paracentesis. 9. Atrial fibrillation. Continue medical management. 10. History of gastric and colon CA. The patient is pending a Lexiscan nuclear study today. Dictated By: ANIL PERALES/LANG Conf#: [id number] DID#: [id number]
[2016-11-27 14:37] LABS: MICROALBUMIN 1.8 mg/dL
--- NOTE | 2016-11-27 15:38 | CONS ---
Date/Time of Note Date/Time of Note DATE: 11/27/16 TIME: 15:36 Consult Date/Type/Reason Admit Date/Time Nov 18, 2016 at 20:54 Type of Consultation: Pulm Subjective Comfortable Unable to lie flat Objective Vital Signs Date Time Temp Pulse Resp B/P Pulse Ox O2 Delivery O2 Flow Rate FiO2 11/27/16 13:27 60 20 94 21 11/27/16 11:52 98.5 106/64 11/27/16 08:00 Nasal Cannula 2.0 Intake and Output 11/26/16 11/26/16 11/27/16 15:00 23:00 07:00 Intake Total 1000 ml 250 ml Output Total 1200 ml 1150 ml Balance -200 ml -900 ml GENERAL: Elderly gentleman appears comfortable at rest frail with moderate weakness VITAL SIGNS: per chart NECK: Supple. No JVD or lymphadenopathy. CARDIAC EXAM: S1, S2. No added sounds or murmurs. CHEST: Diminished air entry right lung ABDOMEN: Soft, nontender. No guarding or rebound. EXTREMITIES: No cyanosis, clubbing or edema. NEUROLOGIC: Generalized weakness. No focal deficits. Results/Medications Result Diagram: 11/27/16 0511/27/1621 Results 24 hrs Laboratory Tests Test 11/26/16 16:16 11/26/16 20:59 11/27/16 05:21 11/27/16 07:54 Bedside Glucose 103 112 92 Anion Gap 17 H Basophils # 0.0 Basophils % 0.5 Blood Morphology Comment Blood Urea Nitrogen 34 H Calcium Level 8.4 Carbon Dioxide Level 23 Chloride Level 101 Creatinine 1.65 H Eosinophils # 0.1 Eosinophils % 1.0 Glucose Level 89 # Hematocrit 28.9 L Hemoglobin 9.7 L Lymphocytes # 1.3 Lymphocytes % 24.0 Magnesium Level 1.9 Mean Corpuscular Hemoglobin 30.5 Mean Corpuscular Hemoglobin Concent 33.4 Mean Corpuscular Volume 91.2 Mean Platelet Volume 9.6 Monocytes # 0.5 Monocytes % 9.4 Neutrophils # 3.6 Neutrophils % 65.1 Nucleated Red Blood Cells # 0.0 Nucleated Red Blood Cells % 0.0 Phosphorus Level 4.1 Platelet Count 164 Potassium Level 4.0 Red Blood Count 3.17 L Red Cell Distribution Width 19.7 H Sodium Level 137 White Blood Count 5.6 Test 11/27/16 11:20 Bedside Glucose 90 Medications Current Medications Diagnostic Test (Pha) (Accucheck) 1 ea 02 XX Last administered on 11/25/16 02: 36; Admin Dose 1 EA; Start 11/19/16 at 02:00 Acetaminophen (Tylenol Tab) 650 mg Q6H PRN PO PAIN AND OR ELEVATED TEMP; Start 11/19/16 at 01:00 Ondansetron HCl (Zofran Inj) 4 mg Q6H PRN IV NAUSEA AND/OR VOMITING Last administered on 11/19/16at 03:35; Admin Dose 4 MG; Start 11/19/16 at 01:00 Aspirin (Aspirin) 81 mg DAILY PO Last administered on 11/27/16 08:33; Admin Dose 81 MG; Start 11/19/16 at 09:00 Atorvastatin Calcium (Lipitor) 40 mg HS PO Last administered on 11/26/16 20:53 ; Admin Dose 40 MG; Start 11/19/16 at 21:00 Benazepril HCl (Lotensin) 20 mg DAILY PO Last administered on 11/19/16at 09:03 ; Admin Dose 20 MG; Start 11/19/16 at 09:00; Status Future Hold Famotidine (Pepcid) 20 mg DAILY PO Last administered on 11/27/16 08:33; Admin Dose 20 MG; Start 11/19/16 at 09:00 Morphine Sulfate (morphine) 3 mg Q4H PRN IV PAIN Last administered on 11/25/16 15:54; Admin Dose 3 MG; Start 11/19/16 at 01:30 Metoclopramide HCl (Reglan) 10 mg Q6H PRN IV VOMITTING Last administered on at 05:21; Admin Dose 10 MG; Start 11/19/16 at 05:00 Miscellaneous Information 1 ea NOTE XX ; Start 11/20/16 at 07:30 Glucose (Glutose) 15 gm Q15M PRN PO DECREASED GLUCOSE; Start 11/20/16 at 07:30 Glucose (Glutose) 22.5 gm Q15M PRN PO DECREASED GLUCOSE; Start 11/20/16 at 07: 30 Dextrose (D50w Syringe) 25 ml Q15M PRN IV DECREASED GLUCOSE; Start 11/20/16 at 07:30 Dextrose (D50w Syringe) 50 ml Q15M PRN IV DECREASED GLUCOSE; Start 11/20/16 at 07:30 Glucagon (Glucagen) 1 mg Q15M PRN IM DECREASED GLUCOSE; Start 11/20/16 at 07: 30 Glucose (Glutose) 15 gm Q15M PRN BUCCAL DECREASED GLUCOSE; Start 11/20/16 at 07:30 Carvedilol 3.125 mg 3.125 mg BID PO Last administered on 11/27/16 08:33; Admin Dose 3.125 MG; Start 11/21/16 at 09:00 Levofloxacin/ Dextrose (Levaquin 750 Mg/ D5W 150 ml (Pmx)) 150 ml @ 100 mls/hr Q48H IVPB Last administered on 11/26/16 13:15; Admin Dose 100 MLS/HR; Start 11/26/16 at 12:00 Assessment/Plan Chief Complaint/Hosp Course Assessment 1. Loculated right pleural effusion exudative in nature 2. Renal insufficiency 3. Anemia questionable of chronic disease 4. Ascites status post paracentesis 5. Cardiology pre op eval Recommendations 1. Thoracic surgery evaluation for video-assisted thoracic decortication, repeat CT chest to reeval pleural effusions. 2. Consider correction of anemia preoperatively 3. Renal recommendations 4. DVT and GI prophylaxis 5. Cardiology recs Overall prognosis guarded Problems: JACQUELIN MANUEL MD, FCCP Nov 27, 2016 15:38
--- NOTE | 2016-11-27 16:01 | PN ---
Date/Time of Note Date/Time of Note DATE: 11/27/16 TIME: 16:00 Assessment/Plan Lines/Catheters IV Catheter Type (from Nrsg): Saline Lock [place] in Place (from Nrsg): No Assessment/Plan Chief Complaint/Hosp Course IMPRESSION: Recurrent pleural effusion, no signs of carcinoma. The patient has a loculated right-sided effusion. INR 1.28 HGB 8.2 Would need right video-assisted thoracic surgery, decortication after cardiology clearance, and correction of INR and anemia. Cardiology evaluation in progress Problems: Subjective 24 Hr Interval Summary Constitutional: improved Pain Control: mild Exam/Review of Systems Vital Signs Vitals Vital Signs Date Time Temp Pulse Resp B/P Pulse Ox O2 Delivery O2 Flow Rate FiO2 11/27/16 15:43 97.9 59 20 98/71 95 11/27/16 13:27 21 11/27/16 08:00 Nasal Cannula 2.0 Intake and Output 11/26/16 11/26/16 11/27/16 15:00 23:00 07:00 Intake Total 1000 ml 250 ml Output Total 1200 ml 1150 ml Balance -200 ml -900 ml Exam Neck: non-tender, supple Respiratory: clear to auscultation, normal air movement Cardiovascular: nl pulses, regular rate and rhythm Gastrointestinal: nl liver, spleen, non-tender, soft Results Result Diagram: 11/27/16 0521 11/27/16 0521 DIEGO WEIR MD Nov 27, 2016 16:01
--- NOTE | 2016-11-27 16:39 | PN ---
DATE: 11/27/2016 CARDIOLOGY FOLLOWUP SUBJECTIVE: Discussed with Dr. Anton and discussed with the patient's daughter and . The patient with no chest pain or pressure. Does complain of severe shortness of breath and coughing as soon as he lies flat. Denies any chest pain or pressure to the paramedics. MEDICATIONS: Reviewed as per medication reconciliation, was personally reviewed. PHYSICAL EXAMINATION: VITAL SIGNS: Temperature 98.5, heart rate of 60, blood pressure 106/64, respiration rate of 20, saturating 94%. HEENT: Normocephalic, atraumatic. Pupils are equal. NECK: Supple. CARDIOVASCULAR: Regular rate and rhythm. Systolic murmur. PULMONARY: With rhonchi, diffuse. GASTROINTESTINAL: Soft, nontender. EXTREMITIES: Positive lower extremity edema. NEUROLOGIC: Awake and alert. PSYCHIATRIC: Calm, pleasant. LABORATORY: WBC of 5.6, hemoglobin 9.7, platelet 164. Sodium 137, potassium 4 , BUN of 34, creatinine 0.65, glucose 89. ASSESSMENT AND PLAN: 1. Severe cardiomyopathy, unclear if ischemic or nonischemic. 2. Paroxysmal atrial fibrillation. 3. Recurrent pleural effusion, loculated pleural effusion. 4. Renal failure, acute on chronic, currently close to his baseline. 5. Respiratory failure secondary to above and fluid overload and congestive heart failure secondary to a combination of systolic heart failure and probably diastolic heart failure. 6. Renal insufficiency. 7. Ascites and status post paracentesis, history of gastric and colon cancer. 8. CARDIOVASCULAR Preoperative evaluation. RECOMMENDATIONS: The patient is still at this time not able to lie flat. He is not currently optimized for anesthesia and the VATS procedure. Will consider ischemic workup if the patient has to go through VATS procedure. However, repeat ischemic workup with a stress test to be done once the patient is hemodynamically more stable and able to lie flat at least. IV diuresis will be continued as well. We will closely monitor him for now. Dictated By: COLIN MANJARREZ/LANG Conf#: [id number] DID#: [id number] KASSANDRA
[2016-11-27] MEDS: ATORVASTATIN 40 MG TAB PO SCH (20:34)
[2016-11-27] MEDS: ACCUCHECK XX SCH (20:37)
--- NOTE | 2016-11-27 22:58 | RADRPT ---
PROCEDURE: CT Chest without contrast. CLINICAL INDICATION: Shortness of breath. Pleural effusions. TECHNIQUE: Helical axial sections were obtained through the chest without intravenous contrast enh ancement. Coronal and sagittal reformatted images were obtained from the axial source images. Total exam DLP is 2 and 65.21 mGy-cm. CTDIvol is 7.95 mGy. One or more of the following dose reduction techniques were used: Automated exposure control, adjustment of the mA and/or kV according to patie nt size, use of iterative reconstruction technique. COMPARISON: Chest radiograph dated 11/22/2016. FINDINGS: There is a large right pleural effusion which is partially loculated laterally and superiorly. Ther e is a small left pleural effusion. There is associated atelectasis throughout the right lower lobe and in the left lower lobe posteriorly. The lungs are otherwise clear with no other airspace or in terstitial disease. There is no pulmonary nodule or mass lesion. There is no mediastinal or hilar lymphadenopathy or mass. There is no axillary, supraclavicular, or internal mammary lymphadenopathy. The thoracic aorta is not dilated. There is calcification in the aorta consistent with atherosclero sis. The heart is enlarged. There is coronary artery calcification. There is a small pericardial effusion. Images through the upper abdomen demonstrate normal visualized portions of the liver, spleen, and ad renals. The osseous structures are unremarkable with no fracture or lytic lesion. IMPRESSION: 1. Large right pleural effusion which is partially loculated laterally and superiorly. 2. Small left pleural effusion. 3. Atelectasis throughout the right lower lobe. 4. Mild left basilar atelectasis. 5. Atherosclerosis. 6. Cardiomegaly and coronary artery calcification. 7. Small pericardial effusion. 8. Otherwise unremarkable study. RPTAT: QQ .Adrian Sosa MD, MD Date Time Electronically viewed and signed by .Adrian Sosa MD, on 11/27/2016 22:58 .R/
[2016-11-28] VITALS (14 sets, daily range): BP systolic 103–110; BP diastolic 55–63; PULSE 56–62; RESP 16–20
[2016-11-28] MEDS: ALBUTEROL/IPRATROPIUM (NEB) 3 ML AMP HHN SCH ×6 (01:37→20:14)
[2016-11-28] MEDS: FUROSEMIDE 20 MG INJ IV SCH ×2 (05:31→17:29)
[2016-11-28 06:25] LABS: INR 1.29; PROTIME 16.2 Sec (12.2-14.2); PT RATIO 1.3
[2016-11-28 06:26] LABS: PARTIAL THROMBOPLASTIN TIME 36.2 Sec (25.0-35.0)
[2016-11-28] MEDS: INSULIN ASPART [NOVOLOG] 3 ML PEN SC SCH ×4 (07:39→20:20)
[2016-11-28] MEDS: FAMOTIDINE 20 MG TAB PO SCH (08:42)
[2016-11-28] MEDS: ASPIRIN 81 MG TAB PO SCH (08:42)
[2016-11-28 08:55] LABS: CALCIUM 8.5 mg/dl (8.4-10.2); CREATININE 1.67 mg/dl (0.61-1.24); POTASSIUM 3.7 mmol/L (3.5-5.1)
[2016-11-28 09:01] LABS: BASOPHILS % 0.6 % (0.0-2.0); EOSINOPHILS # 0.1 10^3/ul (0.0-0.5); EOSINOPHILS % 1.2 % (0.0-7.0); HEMATOCRIT 30.3 % (42.0-52.0); HEMOGLOBIN 9.9 g/dl (14.0-18.0); LYMPHOCYTES # 1.2 10^3/ul (0.8-2.9); LYMPHOCYTES % 21.9 % (15.0-51.0); MEAN CORPUSCULAR HEMOGLOBIN 30.2 pg (29.0-33.0); MEAN CORPUSCULAR HGB CONC 32.8 g/dl (32.0-37.0); MONOCYTE # 0.6 10^3/ul (0.3-0.9); MONOCYTES % 10.2 % (0.0-11.0); NEUTROPHIL # 3.7 10^3/ul (1.6-7.5); NEUTROPHILS % 66.1 % (39.0-77.0); PLATELET COUNT 170 10^3/UL (140-440); RED CELL DISTRIBUTION WIDTH 19.5 % (11.5-14.5); UNCORRECTED WBC 5.6 10^3/ul (4.8-10.8); WHITE BLOOD COUNT 5.6 10^3/ul (4.8-10.8)
[2016-11-28 09:14] LABS: CONDITION 1; LH ANALYZER COMMENTS 1
[2016-11-28] MEDS ORDERED: METOLAZONE 2.5 MG TAB PO ONE (09:30)
--- NOTE | 2016-11-28 10:11 | PN ---
DATE: 11/28/2016 SUBJECTIVE: The patient is stable, no acute events overnight. No fevers, chills, nausea, vomiting. Mild shortness of breath. OBJECTIVE: VITAL SIGNS: Blood pressure 110/60, respirations 20, pulse 67, temperature 98.7. I's AND O'S: ____with 2.8 liters out. HEENT: Head is normocephalic. NECK: Supple. HEART: Regular rate. LUNGS: Show diminished breath sounds at the base. ABDOMEN: Soft, nontender to palpation. No rebound or guarding. EXTREMITIES: Negative for clubbing, cyanosis. Positive edema. DERMATOLOGIC: No rashes. MUSCULOSKELETAL: No joint effusions. NEUROLOGIC: No change in exam. MEDICATIONS: The patient's medications have been reviewed. LABORATORY DATA: For 11/28/2016, is currently pending. ASSESSMENT AND PLAN: 1. Nonoliguric acute kidney injury on top of chronic kidney disease stage IIIB/IV with previous bas michelle creatinine of 1.5 mg/dL. Etiology of acute kidney injury secondary to cardiorenal syndrome, h emodynamics. Renal function has been improving on current diuretic regimen. We will continue Lasix 40 mg IV b.i.d. We will give an additional dose of metolazone 2.5 mg p.o. x1 and monitor renal fun ction and electrolytes closely. 2. Hyperkalemia, improved. Continue to monitor. 3. Acute systolic congestive heart failure. The patient is currently decompensated as stated above . Continue current diuretic regimen. The patient was seen by cardiology, pending possible stress t est once clinically stable. 4. Anemia of chronic disease. Continue to monitor H and H levels. 5. Mineral bone disorder. Continue to monitor calcium and phosphorus levels. No need for phosphoru s binders. 6. Pleural effusion, loculated. The patient is pending possible VATS versus chest tube placement. Follow up with CT surgery. 7. Acute respiratory failure secondary to CHF, slowly improving. Continue to monitor. Continue me dical management. 8. Ascites, likely cardiac in nature. The patient is status post thoracentesis. 9. Atrial fibrillation. Continue medical management. 10. History of gastric and colon carcinoma. Dictated By: ANIL PERALES/LANG Conf#: [id number] [facility]#: [id number]
--- NOTE | 2016-11-28 10:41 | PN ---
DATE: 11/28/2016 CARDIOLOGY FOLLOWUP SUBJECTIVE: Discussed with the staff, with Dr. Savage. Rhythm strip was reviewed. The patient re que in sinus rhythm. Denies any chest pain or pressure, does complain of shortness of breath and cough when he lies flat. No chest pain or pressure. No palpitation. MEDICATIONS: Reviewed, which include: 1. Lasix 40 mg IV b.i.d. 2. Levaquin. 3. Coreg 3.125 b.i.d. 4. Lipitor 40. 5. Aspirin 81. PHYSICAL EXAMINATION: VITAL SIGNS: Temperature 98.7, heart rate of 67, blood pressure 110/63, respiration rate of 20, sat urating 94%. HEENT: Normocephalic, atraumatic. Pupils are equal. CARDIOVASCULAR: Regular rate and rhythm. Systolic murmur. PULMONARY: With no wheezes heard anteriorly, but diffuse rhonchi. GASTROINTESTINAL: Soft, nontender. EXTREMITIES: With positive diffuse lower extremity edema. NEUROLOGIC: Awake and alert, responds appropriately. PSYCHIATRIC: Calm and pleasant. LABORATORY: Chemistry is still pending. Glucose this morning 85. INR this morning is 1.29. CT of the chest done showed a large right pleural effusion which is partially loculated superiorly. Smal l left pleural effusion. Atelectasis throughout the right lower lobe, cardiomegaly, coronary artery calcification, small pericardial effusion, otherwise unremarkable. ASSESSMENT AND PLAN: 1. Congestive heart failure, acute on chronic, secondary to systolic dysfunction and probably diast olic dysfunction. 2. Severe cardiomyopathy at this point is unclear if it is ischemic or nonischemic. 3. History of paroxysmal atrial fibrillation, currently in sinus rhythm. 4. Large pleural effusion which appeared to be partially loculated. 5. Renal failure, acute on chronic. 6. Respiratory failure, hypoxemia secondary to above. 7. Ascites, status post thoracentesis. 8. History of gastric and colon cancer. RECOMMENDATIONS: We will continue with diuresis and increase as tolerated. Consider as oppos ed to a VATS procedure if possible. Continue to monitor on telemetry, correct electrolytes as jackie mendez Dictated By: COLIN BERGERON MD AV/LANG Conf#: [id number] DID#: [id number] CC: JACQUELIN MANUEL MD; ANA MARÍA RAND;*EndCC*
--- NOTE | 2016-11-28 11:46 | PN ---
Date/Time of Note Date/Time of Note DATE: 11/28/16 TIME: 11:41 Assessment/Plan VTE Prophylaxis VTE Prophylaxis Intervention: contraindicated VTE Contraindication Reason: blood coagulation disorder Lines/Catheters IV [facility] Saline Lock Urinary Cath still in place: No Assessment/Plan Chief Complaint/Hosp Course Assessment/Plan: 66 M with: 1. Shortness of breath, secondary to large pleural effusion. - s/p thoracentesis - exudative in nature, also with hemoptysis - sequelae of strep pneumo vs overt heart failure - appreciate pulm- send out for sputum cultures, continue abx as well - per CTS eval - recommend VATS after cardiology clearance, and correction of INR and anemia. 2. Chest pain - pleuritic in nature - most likely secondary to above. - monitor - f/u CV rec's 3. Abdominal distention, from ascites, likely secondary to alcoholic liver disease - s/p paracentesis - monitor acute changes, abd x-ray negative - f/u cytology 4. Cardiomyopathy with systolic dysfunction - EF 35%, Stage III/IV diastolic dysfunction, - strict I/O's, diuresis 5. Chronic kidney disease -Nonoliguric acute kidney injury on top of chronic kidney disease stage IIIB/IV with a baseline creatinine of 1.52 mg/dL. Hepatorenal with cardio renal - renally adjust medications, avoid nephrotoxins - if worsening - possible dialysis - appreciate nephro consult - diamox added 6. Hyperkalemia - presently stable - if > 5.5 - kayexlate - will give 15 mg po 7. Atrial fibrillation, rate controlled and in sinus - hold anticoagulation - 2/2 to coagulopathy 8. Coagulopathy - hepatitis panel Hep B core antigen + : most likely chronic liver disease - monitor 9. Gastric and colon cancer status post surgery and chemo. 10. Hepatitis B - chronic - standard precautions 11. Alcohol abuse - monitor labs 12. Megaloblastic anemia, most likely secondary to anemia of chronic disease. - nl folate/vitb12 13. GI ppx - protonix 14. DVT ppx - scds dispo - f/u labs, f/u cytology paracentesis, discuss whether pt would benefit from pleurX cath placement vs VATS. Problems: Subjective 24 Hr Interval Summary Free Text/Dictation No acute events overnight, cardiac stress test was cancelled yesterday. Exam/Review of Systems Vital Signs Vitals Vital Signs Date Time Temp Pulse Resp B/P Pulse Ox O2 Delivery O2 Flow Rate FiO2 11/28/16 11:31 98.0 67 20 103/55 96 11/28/16 05:02 21 11/27/16 08:00 Nasal Cannula 2.0 Intake and Output 11/27/16 11/27/16 11/28/16 15:00 23:00 07:00 Intake Total 50 ml 550 ml 250 ml Output Total 1800 ml 1000 ml Balance 50 ml -1250 ml -750 ml Exam Gen Ana: NAD, AAOx4 HEENT: NC/AT, PERRLA, EOMI NECK: supple, no thyromegaly THORAX: symmetrical, no obvious deformities CV: S1S2, RRR, no M/G/R Lungs: right some diminished breath sounds, crackles - end expiratory wheezing - scattered rhonchi - stable Abd: soft, NT/distention, mild fluid wave, +BS, no rebound, no guarding, neg HSM EXT: no edema, no ecchymosis, no clubbing, FROM Neuro: CN II-XII grossly intact, no focal deficits Psych: fair mood and affect Skin: C/D/I Results Result Diagram: 11/28/16 0549 11/28/16 0549 Results 24 hrs Laboratory Tests Test 11/27/16 17:23 11/27/16 20:36 11/28/16 05:49 11/28/16 07:35 Bedside Glucose 118 144 85 Activated Partial Thromboplast Time 36.2 H Anion Gap 16 Basophils # 0.0 Basophils % 0.6 Blood Morphology Comment Blood Urea Nitrogen 35 H Calcium Level 8.5 Carbon Dioxide Level 27 Chloride Level 100 Creatinine 1.67 H Eosinophils # 0.1 Eosinophils % 1.2 Glucose Level 80 Hematocrit 30.3 L Hemoglobin 9.9 L INR International Normalized Ratio 1.29 Lymphocytes # 1.2 Lymphocytes % 21.9 Mean Corpuscular Hemoglobin 30.2 Mean Corpuscular Hemoglobin Concent 32.8 Mean Corpuscular Volume 92.0 Mean Platelet Volume 10.0 Monocytes # 0.6 Monocytes % 10.2 Neutrophils # 3.7 Neutrophils % 66.1 Nucleated Red Blood Cells # 0.0 Nucleated Red Blood Cells % 0.0 Platelet Count 170 Potassium Level 3.7 Prothrombin Time 16.2 H Prothrombin Time Ratio 1.3 Red Blood Count 3.30 L Red Cell Distribution Width 19.5 H Sodium Level 139 White Blood Count 5.6 Medications Medications Current Medications Diagnostic Test (Pha) (Accucheck) 1 ea 02 XX Last administered on 11/25/16 02: 36; Admin Dose 1 EA; Start 11/19/16 at 02:00 Acetaminophen (Tylenol Tab) 650 mg Q6H PRN PO PAIN AND OR ELEVATED TEMP; Start 11/19/16 at 01:00 Ondansetron HCl (Zofran Inj) 4 mg Q6H PRN IV NAUSEA AND/OR VOMITING Last administered on 11/19/16at 03:35; Admin Dose 4 MG; Start 11/19/16 at 01:00 Aspirin (Aspirin) 81 mg DAILY PO Last administered on 11/28/16 08:42; Admin Dose 81 MG; Start 11/19/16 at 09:00 Atorvastatin Calcium (Lipitor) 40 mg HS PO Last administered on 11/27/16 20:34 ; Admin Dose 40 MG; Start 11/19/16 at 21:00 Benazepril HCl (Lotensin) 20 mg DAILY PO Last administered on 11/19/16at 09:03 ; Admin Dose 20 MG; Start 11/19/16 at 09:00; Status Future Hold Famotidine (Pepcid) 20 mg DAILY PO Last administered on 11/28/16 08:42; Admin Dose 20 MG; Start 11/19/16 at 09:00 Morphine Sulfate (morphine) 3 mg Q4H PRN IV PAIN Last administered on 11/25/16 15:54; Admin Dose 3 MG; Start 11/19/16 at 01:30 Metoclopramide HCl (Reglan) 10 mg Q6H PRN IV VOMITTING Last administered on at 05:21; Admin Dose 10 MG; Start 11/19/16 at 05:00 Miscellaneous Information 1 ea NOTE XX ; Start 11/20/16 at 07:30 Glucose (Glutose) 15 gm Q15M PRN PO DECREASED GLUCOSE; Start 11/20/16 at 07:30 Glucose (Glutose) 22.5 gm Q15M PRN PO DECREASED GLUCOSE; Start 11/20/16 at 07: 30 Dextrose (D50w Syringe) 25 ml Q15M PRN IV DECREASED GLUCOSE; Start 12/27/16 at 07:30 Dextrose (D50w Syringe) 50 ml Q15M PRN IV DECREASED GLUCOSE; Start 11/20/16 at 07:30 Glucagon (Glucagen) 1 mg Q15M PRN IM DECREASED GLUCOSE; Start 11/20/16 at 07: 30 Glucose (Glutose) 15 gm Q15M PRN BUCCAL DECREASED GLUCOSE; Start 11/20/16 at 07:30 Carvedilol 3.125 mg 3.125 mg BID PO Last administered on 11/28/16 08:43; Admin Dose 3.125 MG; Start 11/21/16 at 09:00 Levofloxacin/ Dextrose (Levaquin 750 Mg/ D5W 150 ml (Pmx)) 150 ml @ 100 mls/hr Q48H IVPB Last administered on 11/26/16 13:15; Admin Dose 100 MLS/HR; Start 11/26/16 at 12:00 ANA MARÍA RAND Nov 28, 2016 11:46
[2016-11-28] MEDS: LEVOFLOXACIN 750MG/D5W (PMX) 150 ML IVPB SCH (11:51)
--- NOTE | 2016-11-28 16:05 | CONS ---
Date/Time of Note Date/Time of Note DATE: 11/28/16 TIME: 16:04 Consult Date/Type/Reason Admit Date/Time Nov 18, 2016 at 20:54 Type of Consultation: Pulm Subjective Patient still has significant weakness and shortness of breath on exertion Objective Vital Signs Date Time Temp Pulse Resp B/P Pulse Ox O2 Delivery O2 Flow Rate FiO2 11/28/16 12:33 60 11/28/16 11:31 98.0 20 103/55 96 11/28/16 09:00 21 11/27/16 08:00 Nasal Cannula 2.0 Intake and Output 11/27/16 11/27/16 11/28/16 15:00 23:00 07:00 Intake Total 50 ml 550 ml 250 ml Output Total 1800 ml 1000 ml Balance 50 ml -1250 ml -750 ml GENERAL: Elderly gentleman appears comfortable at rest frail with moderate weakness VITAL SIGNS: per chart NECK: Supple. No JVD or lymphadenopathy. CARDIAC EXAM: S1, S2. No added sounds or murmurs. CHEST: Diminished air entry right lung ABDOMEN: Soft, nontender. No guarding or rebound. EXTREMITIES: No cyanosis, clubbing or edema. NEUROLOGIC: Generalized weakness. No focal Results/Medications Result Diagram: 11/28/16 0549 11/28/16 0549 Results [address] Persistent large loculated effusion right lung Laboratory Tests Test 11/27/16 17:23 11/27/16 20:36 11/27/16 22:00 11/28/16 05:49 Bedside Glucose 118 144 Urine Random Creatinine 20.63 Urine Random Sodium 122 H Activated Partial Thromboplast Time 36.2 H Anion Gap 16 Basophils # 0.0 Basophils % 0.6 Blood Morphology Comment Blood Urea Nitrogen 35 H Calcium Level 8.5 Carbon Dioxide Level 27 Chloride Level 100 Creatinine 1.67 H Eosinophils # 0.1 Eosinophils % 1.2 Glucose Level 80 Hematocrit 30.3 L Hemoglobin 9.9 L INR International Normalized Ratio 1.29 Lymphocytes # 1.2 Lymphocytes % 21.9 Mean Corpuscular Hemoglobin 30.2 Mean Corpuscular Hemoglobin Concent 32.8 Mean Corpuscular Volume 92.0 Mean Platelet Volume 10.0 Monocytes # 0.6 Monocytes % 10.2 Neutrophils # 3.7 Neutrophils % 66.1 Nucleated Red Blood Cells # 0.0 Nucleated Red Blood Cells % 0.0 Platelet Count 170 Potassium Level 3.7 Prothrombin Time 16.2 H Prothrombin Time Ratio 1.3 Red Blood Count 3.30 L Red Cell Distribution Width 19.5 H Sodium Level 139 White Blood Count 5.6 Test 11/28/16 07:35 11/28/16 11:42 Bedside Glucose 85 149 Medications Current Medications Diagnostic Test (Pha) (Accucheck) 1 ea 02 XX Last administered on 11/25/16 02: 36; Admin Dose 1 EA; Start 11/19/16 at 02:00 Acetaminophen (Tylenol Tab) 650 mg Q6H PRN PO PAIN AND OR ELEVATED TEMP; Start 11/19/16 at 01:00 Ondansetron HCl (Zofran Inj) 4 mg Q6H PRN IV NAUSEA AND/OR VOMITING Last administered on 11/19/16at 03:35; Admin Dose 4 MG; Start 11/19/16 at 01:00 Aspirin (Aspirin) 81 mg DAILY PO Last administered on 11/28/16 08:42; Admin Dose 81 MG; Start 11/19/16 at 09:00 Atorvastatin Calcium (Lipitor) 40 mg HS PO Last administered on 11/27/16 20:34 ; Admin Dose 40 MG; Start 11/19/16 at 21:00 Benazepril HCl (Lotensin) 20 mg DAILY PO Last administered on 11/19/16at 09:03 ; Admin Dose 20 MG; Start 11/19/16 at 09:00; Status Future Hold Famotidine (Pepcid) 20 mg DAILY PO Last administered on 11/28/16 08:42; Admin Dose 20 MG; Start 11/19/16 at 09:00 Morphine Sulfate (morphine) 3 mg Q4H PRN IV PAIN Last administered on 11/25/16 15:54; Admin Dose 3 MG; Start 11/19/16 at 01:30 Metoclopramide HCl (Reglan) 10 mg Q6H PRN IV VOMITTING Last administered on at 05:21; Admin Dose 10 MG; Start 11/19/16 at 05:00 Miscellaneous Information 1 ea NOTE XX ; Start 11/20/16 at 07:30 Glucose (Glutose) 15 gm Q15M PRN PO DECREASED GLUCOSE; Start 11/20/16 at 07:30 Glucose (Glutose) 22.5 gm Q15M PRN PO DECREASED GLUCOSE; Start 11/20/16 at 07: 30 Dextrose (D50w Syringe) 25 ml Q15M PRN IV DECREASED GLUCOSE; Start 11/20/16 at 07:30 Dextrose (D50w Syringe) 50 ml Q15M PRN IV DECREASED GLUCOSE; Start 11/20/16 at 07:30 Glucagon (Glucagen) 1 mg Q15M PRN IM DECREASED GLUCOSE; Start 11/20/16 at 07: 30 Glucose (Glutose) 15 gm Q15M PRN BUCCAL DECREASED GLUCOSE; Start 11/20/16 at 07:30 Carvedilol 3.125 mg 3.125 mg BID PO Last administered on 11/28/16 08:43; Admin Dose 3.125 MG; Start 11/21/16 at 09:00 Levofloxacin/ Dextrose (Levaquin 750 Mg/ D5W 150 ml (Pmx)) 150 ml @ 100 mls/hr Q48H IVPB Last administered on 11/28/16 11:51; Admin Dose 100 MLS/HR; Start 11/26/16 at 12:00 Assessment/Plan Chief Complaint/Hosp Course Assessment 1. Loculated right pleural effusion exudative in nature 2. Renal insufficiency 3. Anemia questionable of chronic disease 4. Ascites status post paracentesis 5. Cardiology pre op eval Recommendations 1. Thoracic surgery evaluation for video-assisted thoracic decortication, repeat CT chest shows persistent effusion. If patient is not stable for VATS procedure consider chest tube placement. I will discuss with thoracic surgery. 2. Consider correction of anemia preoperatively 3. Renal recommendations 4. DVT and GI prophylaxis 5. Cardiology recs Overall prognosis guarded Problems: JACQUELIN MANUEL MD, [facility] Nov 28, 2016 16:05
[2016-11-28] MEDS: ATORVASTATIN 40 MG TAB PO SCH (20:22)
--- NOTE | 2016-11-28 20:31 | PN ---
Date/Time of Note Date/Time of Note DATE: 11/28/16 TIME: 20:30 Assessment/Plan Lines/Catheters IV Catheter Type (from Nrsg): Saline Lock [place] in Place (from Nrsg): No Assessment/Plan Chief Complaint/Hosp Course IMPRESSION: Recurrent pleural effusion, no signs of carcinoma. The patient has a loculated right-sided effusion. INR 1.28 HGB 8.2 Would need right video-assisted thoracic surgery, decortication however he is at high risk for surgery will ask IR for pigtail cath placement Problems: Subjective 24 Hr Interval Summary Constitutional: improved Pain Control: mild Exam/Review of Systems Vital Signs Vitals Vital Signs Date Time Temp Pulse Resp B/P Pulse Ox O2 Delivery O2 Flow Rate FiO2 11/28/16 20:14 61 18 96 21 11/28/16 19:58 98.4 103/60 11/27/16 08:00 Nasal Cannula 2.0 Intake and Output 11/27/16 11/27/16 11/28/16 15:00 23:00 07:00 Intake Total 50 ml 550 ml 250 ml Output Total 1800 ml 1000 ml Balance 50 ml -1250 ml -750 ml Exam Neck: non-tender, supple Respiratory: normal air movement Cardiovascular: nl pulses, regular rate and rhythm Results Result Diagram: 11/28/16 0549 11/28/16 0549 DIEGO WEIR MD Nov 28, 2016 20:31
[2016-11-29] VITALS (14 sets, daily range): BP systolic 91–112; BP diastolic 53–66; PULSE 51–65; RESP 16–19
[2016-11-29] MEDS: ALBUTEROL/IPRATROPIUM (NEB) 3 ML AMP HHN SCH ×6 (01:07→21:00)
[2016-11-29] MEDS: ACCUCHECK XX SCH (01:21)
[2016-11-29] MEDS: FUROSEMIDE 20 MG INJ IV SCH ×2 (06:20→17:45)
[2016-11-29] MEDS: INSULIN ASPART [NOVOLOG] 3 ML PEN SC SCH ×4 (07:30→21:07)
[2016-11-29 07:32] LABS: BASOPHILS % 0.6 % (0.0-2.0); EOSINOPHILS # 0.1 10^3/ul (0.0-0.5); EOSINOPHILS % 1.1 % (0.0-7.0); HEMATOCRIT 29.8 % (42.0-52.0); HEMOGLOBIN 10.1 g/dl (14.0-18.0); LYMPHOCYTES # 1.5 10^3/ul (0.8-2.9); LYMPHOCYTES % 24.3 % (15.0-51.0); MEAN CORPUSCULAR HEMOGLOBIN 31.1 pg (29.0-33.0); MEAN CORPUSCULAR HGB CONC 33.8 g/dl (32.0-37.0); MEAN PLATELET VOLUME 9.4 fl (7.4-10.4); MONOCYTE # 0.7 10^3/ul (0.3-0.9); MONOCYTES % 10.6 % (0.0-11.0); NEUTROPHIL # 3.9 10^3/ul (1.6-7.5); NEUTROPHILS % 63.4 % (39.0-77.0); PLATELET COUNT 184 10^3/UL (140-440); RED BLOOD COUNT 3.24 10^6/ul (4.70-6.10); RED CELL DISTRIBUTION WIDTH 19.2 % (11.5-14.5); UNCORRECTED WBC 6.2 10^3/ul (4.8-10.8); WHITE BLOOD COUNT 6.2 10^3/ul (4.8-10.8)
[2016-11-29 07:41] LABS: CONDITION 1; LH ANALYZER COMMENTS 1
[2016-11-29 07:53] LABS: POTASSIUM 3.4 mmol/L (3.5-5.1)
[2016-11-29 07:56] LABS: CREATININE 1.7 mg/dl (0.61-1.24)
[2016-11-29 07:57] LABS: CALCIUM 8.2 mg/dl (8.4-10.2); MAGNESIUM 1.7 mg/dl (1.7-2.5); PHOSPHORUS 3.6 mg/dl (2.5-4.9)
[2016-11-29] MEDS: FAMOTIDINE 20 MG TAB PO SCH (08:52)
[2016-11-29] MEDS: ASPIRIN 81 MG TAB PO SCH (08:53)
--- NOTE | 2016-11-29 10:35 | PN ---
Date/Time of Note Date/Time of Note DATE: 11/29/16 TIME: 10:32 Assessment/Plan VTE Prophylaxis VTE Prophylaxis Intervention: contraindicated VTE Contraindication Reason: blood coagulation disorder Lines/Catheters IV [facility]from [facility] Saline Lock Urinary Cath still in place: No Assessment/Plan Chief Complaint/Hosp Course Assessment/Plan: 66 M with: 1. Shortness of breath, secondary to large pleural effusion. - s/p thoracentesis - exudative in nature, also with hemoptysis - sequelae of infx vs overt heart failure - appreciate pulm- send out for sputum cultures, continue abx as well - per CTS eval - initially recommended VATS after cardiology clearance, and correction of INR and anemia, however most likely will now get pleurX or pigtail cath for thorax - f/u with CTS about this. 2. Chest pain - pleuritic in nature - most likely secondary to above - slightly improved - monitor - f/u CV rec's 3. Abdominal distention, from ascites, likely secondary to alcoholic liver disease - s/p paracentesis - monitor acute changes, abd x-ray negative - f/u cytology 4. Cardiomyopathy with systolic dysfunction - EF 35%, Stage III/IV diastolic dysfunction, - strict I/O's, diuresis 5. Chronic kidney disease -Nonoliguric acute kidney injury on top of chronic kidney disease stage IIIB/IV with a baseline creatinine of 1.52 mg/dL. Hepatorenal with cardio renal - renally adjust medications, avoid nephrotoxins - if worsening - possible dialysis - appreciate nephro consult - diamox added 6. Hyperkalemia - presently stable - if > 5.5 - kayexlate - will give 15 mg po 7. Atrial fibrillation, rate controlled and in sinus - hold anticoagulation - 2/2 to coagulopathy 8. Coagulopathy - hepatitis panel Hep B core antigen + : most likely chronic liver disease - monitor 9. Gastric and colon cancer status post surgery and chemo. 10. Hepatitis B - chronic - standard precautions 11. Alcohol abuse - monitor labs 12. Megaloblastic anemia, most likely secondary to anemia of chronic disease. - nl folate/vitb12 13. GI ppx - protonix 14. DVT ppx - scds dispo - f/u labs, f/u cytology paracentesis, discuss whether pt would benefit from pleurX cath placement vs VATS. Problems: Subjective 24 Hr Interval Summary Free Text/Dictation Pt had no acute events overnight. Exam/Review of Systems Vital Signs Vitals Vital Signs Date Time Temp Pulse Resp B/P Pulse Ox O2 Delivery O2 Flow Rate FiO2 11/29/16 08:42 97 21 11/29/16 08:41 65 20 11/29/16 07:29 98.8 111/60 11/27/16 08:00 Nasal Cannula 2.0 Intake and Output 11/28/16 11/28/16 11/29/16 15:00 23:00 07:00 Intake Total 240 ml 560 ml 360 ml Output Total 400 ml 1200 ml 1350 ml Balance -160 ml -640 ml -990 ml Exam Gen Ana: NAD, AAOx4 HEENT: NC/AT, PERRLA, EOMI NECK: supple, no thyromegaly THORAX: symmetrical, no obvious deformities CV: S1S2, RRR, no M/G/R Lungs: right some diminished breath sounds, crackles - end expiratory wheezing - scattered rhonchi - stable Abd: soft, NT/distention, mild fluid wave, +BS, no rebound, no guarding, neg HSM EXT: no edema, no ecchymosis, no clubbing, FROM Neuro: CN II-XII grossly intact, no focal deficits Psych: fair mood and affect Skin: C/D/I Results Result Diagram: 11/29/1625 11/29/16 0625 Results 24 hrs Laboratory Tests Test 11/28/16 11:42 11/28/16 17:24 11/28/16 20:19 11/29/16 06:25 Bedside Glucose 149 126 134 Anion Gap 14 Basophils # 0.0 Basophils % 0.6 Blood Morphology Comment Blood Urea Nitrogen 33 H Calcium Level 8.2 L Carbon Dioxide Level 30 Chloride Level 95 L Creatinine 1.70 H Eosinophils # 0.1 Eosinophils % 1.1 Glucose Level 94 Hematocrit 29.8 L Hemoglobin 10.1 L Lymphocytes # 1.5 Lymphocytes % 24.3 Magnesium Level 1.7 Mean Corpuscular Hemoglobin 31.1 Mean Corpuscular Hemoglobin Concent 33.8 Mean Corpuscular Volume 92.0 Mean Platelet Volume 9.4 Monocytes # 0.7 Monocytes % 10.6 Neutrophils # 3.9 Neutrophils % 63.4 Nucleated Red Blood Cells # 0.0 Nucleated Red Blood Cells % 0.0 Phosphorus Level 3.6 Platelet Count 184 Potassium Level 3.4 L Red Blood Count 3.24 L Red Cell Distribution Width 19.2 H Sodium Level 136 White Blood Count 6.2 Test 11/29/16 07:30 11/29/16 07:51 Bedside Glucose 126 Lab Scanned Report REFERENCE LAB Medications Medications Current Medications Diagnostic Test (Pha) (Accucheck) 1 ea 02 XX Last administered on 11/25/16 02: 36; Admin Dose 1 EA; Start 11/19/16 at 02:00 Acetaminophen (Tylenol Tab) 650 mg Q6H PRN PO PAIN AND OR ELEVATED TEMP; Start 11/19/16 at 01:00 Ondansetron HCl (Zofran Inj) 4 mg Q6H PRN IV NAUSEA AND/OR VOMITING Last administered on 11/19/16at 03:35; Admin Dose 4 MG; Start 11/19/16 at 01:00 Aspirin (Aspirin) 81 mg DAILY PO Last administered on 11/29/16 08:53; Admin Dose 81 MG; Start 11/19/16 at 09:00 Atorvastatin Calcium (Lipitor) 40 mg HS PO Last administered on 11/28/16 20:22 ; Admin Dose 40 MG; Start 11/19/16 at 21:00 Benazepril HCl (Lotensin) 20 mg DAILY PO Last administered on 11/19/16at 09:03 ; Admin Dose 20 MG; Start 11/19/16 at 09:00; Status Future Hold Famotidine (Pepcid) 20 mg DAILY PO Last administered on 11/29/16 08:52; Admin Dose 20 MG; Start 11/19/16 at 09:00 Morphine Sulfate (morphine) 3 mg Q4H PRN IV PAIN Last administered on 11/25/16 15:54; Admin Dose 3 MG; Start 11/19/16 at 01:30 Metoclopramide HCl (Reglan) 10 mg Q6H PRN IV VOMITTING Last administered on at 05:21; Admin Dose 10 MG; Start 11/19/16 at 05:00 Miscellaneous Information 1 ea NOTE XX ; Start 11/20/16 at 07:30 Glucose (Glutose) 15 gm Q15M PRN PO DECREASED GLUCOSE; Start 11/20/16 at 07:30 Glucose (Glutose) 22.5 gm Q15M PRN PO DECREASED GLUCOSE; Start 11/20/16 at 07: 30 Dextrose (D50w Syringe) 25 ml Q15M PRN IV DECREASED GLUCOSE; Start 11/20/16 at 07:30 Dextrose (D50w Syringe) 50 ml Q15M PRN IV DECREASED GLUCOSE; Start 11/20/16 at 07:30 Glucagon (Glucagen) 1 mg Q15M PRN IM DECREASED GLUCOSE; Start 11/20/16 at 07: 30 Glucose (Glutose) 15 gm Q15M PRN BUCCAL DECREASED GLUCOSE; Start 11/20/16 at 07:30 Carvedilol 3.125 mg 3.125 mg BID PO Last administered on 11/29/16 08:53; Admin Dose 3.125 MG; Start 11/21/16 at 09:00 Levofloxacin/ Dextrose (Levaquin 750 Mg/ D5W 150 ml (Pmx)) 150 ml @ 100 mls/hr Q48H IVPB Last administered on 11/28/16 11:51; Admin Dose 100 MLS/HR; Start 11/26/16 at 12:00 ANA MARÍA RAND Nov 29, 2016 10:35
--- NOTE | 2016-11-29 12:40 | PN ---
DATE: 11/29/2016 CARDIOLOGY FOLLOWUP SUBJECTIVE: Discussed with the patient's daughter, discussed with the staff, discussed with Dr. Karie rosas. Rhythm strip was reviewed. The patient remains in sinus rhythm. Frequent PVC, but no eviden ce of atrial fibrillation. Denies any chest pain or pressure; however, does complain of shortness o f breath and cough, especially if he lies down. Cannot lie down for only 1 or 2 minutes. MEDICATIONS: Reviewed. PHYSICAL EXAMINATION: VITAL SIGNS: Temperature 98.8, heart rate of 65, blood pressure 110/60, respiratory rate of 20, sat urating 97%. HEENT: Normocephalic, atraumatic. Pupils are equal. CARDIOVASCULAR: Regular rate and rhythm, systolic murmur. PULMONARY: With diffuse rhonchi, mostly on the right. NECK: Positive for JVD noted. GASTROINTESTINAL: Soft, nontender. EXTREMITIES: With decreased lower extremity edema. NEUROLOGIC: Awake, alert, responds appropriately. PSYCHIATRIC: Appears to be calm and pleasant. LABORATORY: WBC of 6.2, hemoglobin 10.1, platelet of 184. Sodium 136, potassium 3.4, BUN of 33, cr eatinine 1.7, glucose of 94, mag is 1.7. ASSESSMENT AND PLAN: 1. Congestive heart failure, acute on chronic systolic dysfunction. 2. Renal failure, acute on chronic. 3. Loculated pleural effusion. 4. Dyspnea secondary to above. 5. Hyperkalemia, currently improved. 6. Paroxysmal atrial fibrillation, currently in sinus rhythm. 7. History of gastric and colon cancer. 8. Anemia. 9. Cardiovascular preop evaluation. RECOMMENDATION: Given the fact the patient was complicated and was going to be high risk for anesth esia and cannot even lie flat, it appropriately decided to have a chest tube placed in by IR which a ppeared to be a safer route to go. Follow with the pulmonary recommendations, diuresis as tolerated , being adjusted as per renal recommendations. Will continue to monitor on telemetry, correct elect rolytes as needed. Dictated By: COLIN BERGERON MD AV/LANG Conf#: [id number] DID#: [id number] CC: JACQUELIN MANUEL MD;*EndCC*
--- NOTE | 2016-11-29 13:39 | CONS ---
Date/Time of Note Date/Time of Note DATE: 11/29/16 TIME: 13:35 Consult Date/Type/Reason Admit Date/Time Nov 18, 2016 at 20:54 Initial Consult Date Type of Consultation: neph Subjective SUBJECTIVE: The patient is stable, no acute events overnight. No fevers, chills, nausea, vomiting. Mild shortness of breath. discussing chest tube versus vats. OBJECTIVE: HEENT: Head is normocephalic. NECK: Supple. HEART: Regular rate. LUNGS: Show diminished breath sounds at the base. ABDOMEN: Soft, nontender to palpation. No rebound or guarding. EXTREMITIES: Negative for clubbing, cyanosis. Positive edema. DERMATOLOGIC: No rashes. MUSCULOSKELETAL: No joint effusions. NEUROLOGIC: No change in exam. ASSESSMENT AND PLAN: 1. Nonoliguric acute kidney injury on top of chronic kidney disease stage IIIB/ IV with previous baseline creatinine of 1.5 mg/dL. Etiology of acute kidney injury secondary to cardiorenal syndrome, hemodynamics. Renal function has been improving on current diuretic regimen. We will continue Lasix 40 mg IV b.i.d. We will give an additional dose of metolazone 2.5 mg p.o. x1 and monitor renal function and electrolytes closely. 2. Hyperkalemia, improved. Continue to monitor. 3. Acute systolic congestive heart failure. The patient is currently decompensated as stated above. Continue current diuretic regimen. The patient was seen by cardiology, pending possible stress test once clinically stable. 4. Anemia of chronic disease. Continue to monitor H and H levels. 5. Mineral bone disorder. Continue to monitor calcium and phosphorus levels. No need for phosphorus binders. 6. Pleural effusion, loculated. The patient is pending possible VATS versus chest tube placement. Follow up with CT surgery. 7. Acute respiratory failure secondary to CHF, slowly improving. Continue to monitor. Continue medical management. 8. Ascites, likely cardiac in nature. The patient is status post thoracentesis. 9. Atrial fibrillation. Continue medical management. 10. History of gastric and colon carcinoma. Objective Vital Signs Date Time Temp Pulse Resp B/P Pulse Ox O2 Delivery O2 Flow Rate FiO2 11/29/16 12:33 98.0 69 19 107/61 94 11/29/16 08:42 21 11/27/16 08:00 Nasal Cannula 2.0 Intake and Output 11/28/16 11/28/16 11/29/16 15:00 23:00 07:00 Intake Total 240 ml 560 ml 360 ml Output Total 400 ml 1200 ml 1350 ml Balance -160 ml -640 ml -990 ml Results/Medications Result Diagram: 11/29/16 0625 11/29/16 0625 Results 24 hrs Laboratory Tests Test 11/28/16 17:24 11/28/16 20:19 11/29/16 06:25 11/29/16 07:30 Bedside Glucose 126 134 126 Anion Gap 14 Basophils # 0.0 Basophils % 0.6 Blood Morphology Comment Blood Urea Nitrogen 33 H Calcium Level 8.2 L Carbon Dioxide Level 30 Chloride Level 95 L Creatinine 1.70 H Eosinophils # 0.1 Eosinophils % 1.1 Glucose Level 94 Hematocrit 29.8 L Hemoglobin 10.1 L Lymphocytes # 1.5 Lymphocytes % 24.3 Magnesium Level 1.7 Mean Corpuscular Hemoglobin 31.1 Mean Corpuscular Hemoglobin Concent 33.8 Mean Corpuscular Volume 92.0 Mean Platelet Volume 9.4 Monocytes # 0.7 Monocytes % 10.6 Neutrophils # 3.9 Neutrophils % 63.4 Nucleated Red Blood Cells # 0.0 Nucleated Red Blood Cells % 0.0 Phosphorus Level 3.6 Platelet Count 184 Potassium Level 3.4 L Red Blood Count 3.24 L Red Cell Distribution Width 19.2 H Sodium Level 136 White Blood Count 6.2 Test 11/29/16 07:51 11/29/16 12:01 Lab Scanned Report REFERENCE LAB Bedside Glucose 146 Medications Current Medications Diagnostic Test (Pha) (Accucheck) 1 ea 02 XX Last administered on 11/25/16 02: 36; Admin Dose 1 EA; Start 11/19/16 at 02:00 Acetaminophen (Tylenol Tab) 650 mg Q6H PRN PO PAIN AND OR ELEVATED TEMP; Start 11/19/16 at 01:00 Ondansetron HCl (Zofran Inj) 4 mg Q6H PRN IV NAUSEA AND/OR VOMITING Last administered on 11/19/16at 03:35; Admin Dose 4 MG; Start 11/19/16 at 01:00 Aspirin (Aspirin) 81 mg DAILY PO Last administered on 11/29/16 08:53; Admin Dose 81 MG; Start 11/19/16 at 09:00 Atorvastatin Calcium (Lipitor) 40 mg HS PO Last administered on 11/28/16 20:22 ; Admin Dose 40 MG; Start 11/19/16 at 21:00 Benazepril HCl (Lotensin) 20 mg DAILY PO Last administered on 11/19/16at 09:03 ; Admin Dose 20 MG; Start 11/19/16 at 09:00; Status Future Hold Famotidine (Pepcid) 20 mg DAILY PO Last administered on 11/29/16 08:52; Admin Dose 20 MG; Start 11/19/16 at 09:00 Morphine Sulfate (morphine) 3 mg Q4H PRN IV PAIN Last administered on 11/25/16 15:54; Admin Dose 3 MG; Start 11/19/16 at 01:30 Metoclopramide HCl (Reglan) 10 mg Q6H PRN IV VOMITTING Last administered on at 05:21; Admin Dose 10 MG; Start 11/19/16 at 05:00 Miscellaneous Information 1 ea NOTE XX ; Start 11/20/16 at 07:30 Glucose (Glutose) 15 gm Q15M PRN PO DECREASED GLUCOSE; Start 11/20/16 at 07:30 Glucose (Glutose) 22.5 gm Q15M PRN PO DECREASED GLUCOSE; Start 11/20/16 at 07: 30 Dextrose (D50w Syringe) 25 ml Q15M PRN IV DECREASED GLUCOSE; Start 11/20/16 at 07:30 Dextrose (D50w Syringe) 50 ml Q15M PRN IV DECREASED GLUCOSE; Start 11/20/16 at 07:30 Glucagon (Glucagen) 1 mg Q15M PRN IM DECREASED GLUCOSE; Start 11/20/16 at 07: 30 Glucose (Glutose) 15 gm Q15M PRN BUCCAL DECREASED GLUCOSE; Start 11/20/16 at 07:30 Carvedilol 3.125 mg 3.125 mg BID PO Last administered on 11/29/16 08:53; Admin Dose 3.125 MG; Start 11/21/16 at 09:00 Levofloxacin/ Dextrose (Levaquin 750 Mg/ D5W 150 ml (Pmx)) 150 ml @ 100 mls/hr Q48H IVPB Last administered on 11/28/16 11:51; Admin Dose 100 MLS/HR; Start 11/26/16 at 12:00 ELIN ORTA MD Nov 29, 2016 13:39
--- NOTE | 2016-11-29 13:41 | CONS ---
Date/Time of Note Date/Time of Note DATE: 11/29/16 TIME: 13:38 Consult Date/Type/Reason Admit Date/Time Nov 18, 2016 at 20:54 Type of Consultation: Pulm Subjective Comfortable. Weak. Objective Vital Signs Date Time Temp Pulse Resp B/P Pulse Ox O2 Delivery O2 Flow Rate FiO2 11/29/16 12:33 98.0 69 19 107/61 94 11/29/16 08:42 21 11/27/16 08:00 Nasal Cannula 2.0 Intake and Output 11/28/16 11/28/16 11/29/16 15:00 23:00 07:00 Intake Total 240 ml 560 ml 360 ml Output Total 400 ml 1200 ml 1350 ml Balance -160 ml -640 ml -990 ml GENERAL: Elderly gentleman appears comfortable at rest frail with moderate weakness VITAL SIGNS: per chart NECK: Supple. No JVD or lymphadenopathy. CARDIAC EXAM: S1, S2. No added sounds or murmurs. CHEST: Diminished air entry right lung ABDOMEN: Soft, nontender. No guarding or rebound. EXTREMITIES: No cyanosis, clubbing or edema. NEUROLOGIC: Generalized weakness. No focal Results/Medications Result Diagram: 11/29/1662411/29/1625 Results 24 hrs Laboratory Tests Test 11/28/16 17:24 11/28/16 20:19 11/29/16 06:25 11/29/16 07:30 Bedside Glucose 126 134 126 Anion Gap 14 Basophils # 0.0 Basophils % 0.6 Blood Morphology Comment Blood Urea Nitrogen 33 H Calcium Level 8.2 L Carbon Dioxide Level 30 Chloride Level 95 L Creatinine 1.70 H Eosinophils # 0.1 Eosinophils % 1.1 Glucose Level 94 Hematocrit 29.8 L Hemoglobin 10.1 L Lymphocytes # 1.5 Lymphocytes % 24.3 Magnesium Level 1.7 Mean Corpuscular Hemoglobin 31.1 Mean Corpuscular Hemoglobin Concent 33.8 Mean Corpuscular Volume 92.0 Mean Platelet Volume 9.4 Monocytes # 0.7 Monocytes % 10.6 Neutrophils # 3.9 Neutrophils % 63.4 Nucleated Red Blood Cells # 0.0 Nucleated Red Blood Cells % 0.0 Phosphorus Level 3.6 Platelet Count 184 Potassium Level 3.4 L Red Blood Count 3.24 L Red Cell Distribution Width 19.2 H Sodium Level 136 White Blood Count 6.2 Test 11/29/16 07:51 11/29/16 12:01 Lab Scanned Report REFERENCE LAB Bedside Glucose 146 Medications Current Medications Diagnostic Test (Pha) (Accucheck) 1 ea 02 XX Last administered on 11/25/16 02: 36; Admin Dose 1 EA; Start 11/19/16 at 02:00 Acetaminophen (Tylenol Tab) 650 mg Q6H PRN PO PAIN AND OR ELEVATED TEMP; Start 11/19/16 at 01:00 Ondansetron HCl (Zofran Inj) 4 mg Q6H PRN IV NAUSEA AND/OR VOMITING Last administered on 11/19/16at 03:35; Admin Dose 4 MG; Start 11/19/16 at 01:00 Aspirin (Aspirin) 81 mg DAILY PO Last administered on 11/29/16 08:53; Admin Dose 81 MG; Start 11/19/16 at 09:00 Atorvastatin Calcium (Lipitor) 40 mg HS PO Last administered on 11/28/16 20:22 ; Admin Dose 40 MG; Start 11/19/16 at 21:00 Benazepril HCl (Lotensin) 20 mg DAILY PO Last administered on 11/19/16at 09:03 ; Admin Dose 20 MG; Start 11/19/16 at 09:00; Status Future Hold Famotidine (Pepcid) 20 mg DAILY PO Last administered on 11/29/16 08:52; Admin Dose 20 MG; Start 11/19/16 at 09:00 Morphine Sulfate (morphine) 3 mg Q4H PRN IV PAIN Last administered on 11/25/16 15:54; Admin Dose 3 MG; Start 11/19/16 at 01:30 Metoclopramide HCl (Reglan) 10 mg Q6H PRN IV VOMITTING Last administered on at 05:21; Admin Dose 10 MG; Start 11/19/16 at 05:00 Miscellaneous Information 1 ea NOTE XX ; Start 11/20/16 at 07:30 Glucose (Glutose) 15 gm Q15M PRN PO DECREASED GLUCOSE; Start 11/20/16 at 07:30 Glucose (Glutose) 22.5 gm Q15M PRN PO DECREASED GLUCOSE; Start 11/20/16 at 07: 30 Dextrose (D50w Syringe) 25 ml Q15M PRN IV DECREASED GLUCOSE; Start 11/20/16 at 07:30 Dextrose (D50w Syringe) 50 ml Q15M PRN IV DECREASED GLUCOSE; Start 11/20/16 at 07:30 Glucagon (Glucagen) 1 mg Q15M PRN IM DECREASED GLUCOSE; Start 11/20/16 at 07: 30 Glucose (Glutose) 15 gm Q15M PRN BUCCAL DECREASED GLUCOSE; Start 11/20/16 at 07:30 Carvedilol 3.125 mg 3.125 mg BID PO Last administered on 11/29/16 08:53; Admin Dose 3.125 MG; Start 11/21/16 at 09:00 Levofloxacin/ Dextrose (Levaquin 750 Mg/ D5W 150 ml (Pmx)) 150 ml @ 100 mls/hr Q48H IVPB Last administered on 11/28/16 11:51; Admin Dose 100 MLS/HR; Start 11/26/16 at 12:00 Assessment/Plan Chief Complaint/Hosp Course Assessment 1. Loculated right pleural effusion exudative in nature 2. Renal insufficiency 3. Anemia questionable of chronic disease 4. Ascites status post paracentesis 5. Cardiology pre op eval Recommendations 1. Thoracic surgery evaluation for video-assisted thoracic decortication, repeat CT chest shows persistent effusion. d/w CTS, for pigtail catheter. 2. Consider correction of anemia preoperatively 3. Renal recommendations 4. DVT and GI prophylaxis 5. Cardiology recs Overall prognosis guarded Problems: JACQUELIN MANUEL MD, [facility] Nov 29, 2016 13:41
[2016-11-29] MEDS: ATORVASTATIN 40 MG TAB PO SCH (21:05)
[2016-11-30] VITALS (23 sets, daily range): BP systolic 104–123; BP diastolic 55–71; PULSE 59–77; RESP 16–20
[2016-11-30] MEDS: ALBUTEROL/IPRATROPIUM (NEB) 3 ML AMP HHN SCH ×6 (00:57→20:23)
[2016-11-30] MEDS: ACCUCHECK XX SCH (02:00)
[2016-11-30 05:55] LABS: INR 1.2; PROTIME 15.3 Sec (12.2-14.2); PT RATIO 1.2
[2016-11-30] MEDS: FUROSEMIDE 20 MG INJ IV SCH ×2 (05:55→18:04)
[2016-11-30] MEDS: INSULIN ASPART [NOVOLOG] 3 ML PEN SC SCH ×4 (07:55→20:41)
--- NOTE | 2016-11-30 08:17 | PN ---
DATE: 11/30/2016 CARDIOLOGY FOLLOWUP PROGRESS NOTE SUBJECTIVE: Discussed with the staff. Rhythm strip was reviewed. The patient remains in sinus rhy thm. Heart rate has remained stable. His breathing has, in fact, improved. Denies any chest pain to me. Shortness of breath has improved. He still has cough and orthopnea, but improved now. MEDICATIONS: Reviewed. PHYSICAL EXAMINATION: VITAL SIGNS: Temperature 98, heart rate of 62, blood pressure 104/62, respiration rate of 18, satur ating 95%. HEENT: Normocephalic, atraumatic. Pupils are equal. CARDIOVASCULAR: Regular rate and rhythm, systolic murmur. PULMONARY: With rhonchi mostly on the right side, diffuse. NECK: Positive for JVD. GASTROINTESTINAL: Soft, nontender. EXTREMITIES: Diffuse lower extremity edema. NEUROLOGIC: Awake, alert. PSYCHIATRIC: Appears to be calm and pleasant. LABORATORY: INR is 1.2 this morning. ASSESSMENT AND PLAN: 1. Hypoxemic respiratory failure. 2. Congestive heart failure. 3. Severe cardiomyopathy, unclear, ischemic versus nonischemic. 4. Pleural effusion, appears to be loculated. 5. Anemia. 6. Paroxysmal atrial fibrillation. RECOMMENDATIONS: I agree with placement of patient's chest tube as opposed to video-assisted thorac otomy given the patient's multiple complications and high risk. Diuresis as much as can be done jose l be continued. Renal is being adjusted by nephrology team. Heart rate currently controlled. Aspirin will be continued as well. EMMIE inhibitor has been on hold due to his renal failure. Diab etic control will be continued. At this point, the patient is still not optimized enough to u ndergo stress testing. Dictated By: COLIN BERGERON MD AV/LANG Conf#: [id number] DID#: [id number] CC: ANA MARÍA RAND;*EndCC*
[2016-11-30] MEDS: ASPIRIN 81 MG TAB PO SCH (08:21)
[2016-11-30] MEDS: FAMOTIDINE 20 MG TAB PO SCH (08:21)
[2016-11-30] MEDS: morphine 4 MG/ML VIAL IV PRN ×2 (08:26→14:46)
[2016-11-30] MEDS ORDERED: SOD CHLORIDE 0.9% 500 ML ONE (10:27)
[2016-11-30] MEDS ORDERED: FENTAnyl 50 MCG/ML VIAL ONE (10:27)
[2016-11-30] MEDS ORDERED: MIDAZOLAM 1 MG/ML 2 ML INJ ONE (10:27)
[2016-11-30] MEDS ORDERED: LIDOCAINE 1% (MDV) 20 ML INJ ONE (10:38)
--- NOTE | 2016-11-30 11:06 | RADRPT ---
PROCEDURE: Ultrasound guidance for placement of needle in right pleural space. CLINICAL INDICATION: Right pleural effusion. TECHNIQUE: Prior to the procedure, informed consent was obtained. Risks including bleeding, infection, and pneu mothorax were explained to the patient. The patient understood and was willing to proceed. A procedu ral pause was performed. The patient's name, date of , and procedure to be performed were verif ied. The central line was inserted with all elements of maximal sterile barrier technique. All of th e following were used: head covering, facial mask, sterile gown, sterile gloves, a large sterile she et, hand hygiene, and 2% chlorhexidine for cutaneous antisepsis. The right neck and anterior/super ior chest wall was prepped and draped in usual sterile fashion. Limited sonography of the right chest was then performed. Noted is a moderate to large right pleural effusion. Ultrasound images were recorded and stored in the patient's medical record. Following the local injection of Xylocaine, the right pleural space was punctured under sonographic guidance with a 5-English Yueh catheter through which a 0.035 inch floppy tip guidewire was advanced into the right pleural space. The patient tolerated the procedure well. The remainder of the proce dure was performed with fluoroscopy and dictated under separate cover. COMPARISON: CT scan of the chest dated 11/27/2016. FINDINGS: The ultrasound images demonstrate a moderate to large right pleural effusion. The subsequent images demonstrate the needle entering the right pleural space. IMPRESSION: 1. Ultrasound guidance for a needle placement in right pleural spaces. RPTAT: QQ .Adrian Sosa MD, MD Date Time Electronically viewed and signed by .Adrian Sosa MD, MD on 11/30/2016 11:06 .R/
--- NOTE | 2016-11-30 11:31 | CONS ---
Date/Time of Note Date/Time of Note DATE: 11/30/16 TIME: 11:29 Consult Date/Type/Reason Admit Date/Time Nov 18, 2016 at 20:54 Type of Consultation: Pulm Subjective Comfortable. Having chest tube placed by IR Objective Vital Signs Date Time Temp Pulse Resp B/P Pulse Ox O2 Delivery O2 Flow Rate FiO2 11/30/16 09:23 95 21 11/30/16 09:21 72 20 11/30/16 07:33 99.7 107/56 11/27/16 08:00 Nasal Cannula 2.0 Intake and Output 11/29/16 11/29/16 11/30/16 15:00 23:00 07:00 Intake Total 240 ml 560 ml 500 ml Output Total 400 ml 1000 ml 1200 ml Balance -160 ml -440 ml -700 ml GENERAL: Elderly gentleman appears comfortable at rest frail with moderate weakness VITAL SIGNS: per chart NECK: Supple. No JVD or lymphadenopathy. CARDIAC EXAM: S1, S2. No added sounds or murmurs. CHEST: Diminished air entry right lung ABDOMEN: Soft, nontender. No guarding or rebound. EXTREMITIES: No cyanosis, clubbing or edema. NEUROLOGIC: Generalized weakness. No focal Results/Medications Result Diagram: 11/29/1662411/29/16624 Results 24 hrs Laboratory Tests Test 11/29/16 12:01 11/29/16 17:36 11/29/16 20:59 11/30/16 02:14 Bedside Glucose 146 122 194 134 Test 11/30/16 05:15 11/30/16 07:43 INR International Normalized Ratio 1.20 Prothrombin Time 15.3 H Prothrombin Time Ratio 1.2 Bedside Glucose 91 Medications Current Medications Diagnostic Test (Pha) (Accucheck) 1 ea 02 XX Last administered on 11/30/16 02: 00; Admin Dose 1 EA; Start 11/19/16 at 02:00 Acetaminophen (Tylenol Tab) 650 mg Q6H PRN PO PAIN AND OR ELEVATED TEMP; Start 11/19/16 at 01:00 Ondansetron HCl (Zofran Inj) 4 mg Q6H PRN IV NAUSEA AND/OR VOMITING Last administered on 11/19/16at 03:35; Admin Dose 4 MG; Start 11/19/16 at 01:00 Aspirin (Aspirin) 81 mg DAILY PO Last administered on 11/30/16 08:21; Admin Dose 81 MG; Start 11/19/16 at 09:00 Atorvastatin Calcium (Lipitor) 40 mg HS PO Last administered on 11/29/16 21:05 ; Admin Dose 40 MG; Start 11/19/16 at 21:00 Benazepril HCl (Lotensin) 20 mg DAILY PO Last administered on 11/19/16at 09:03 ; Admin Dose 20 MG; Start 11/19/16 at 09:00; Status Future Hold Famotidine (Pepcid) 20 mg DAILY PO Last administered on 11/30/16 08:21; Admin Dose 20 MG; Start 11/19/16 at 09:00 Morphine Sulfate (morphine) 3 mg Q4H PRN IV PAIN Last administered on 11/30/16 08:26; Admin Dose 3 MG; Start 11/19/16 at 01:30 Metoclopramide HCl (Reglan) 10 mg Q6H PRN IV VOMITTING Last administered on at 05:21; Admin Dose 10 MG; Start 11/19/16 at 05:00 Miscellaneous Information 1 ea NOTE XX ; Start 11/20/16 at 07:30 Glucose (Glutose) 15 gm Q15M PRN PO DECREASED GLUCOSE; Start 11/20/16 at 07:30 Glucose (Glutose) 22.5 gm Q15M PRN PO DECREASED GLUCOSE; Start 11/20/16 at 07: 30 Dextrose (D50w Syringe) 25 ml Q15M PRN IV DECREASED GLUCOSE; Start 11/20/16 at 07:30 Dextrose (D50w Syringe) 50 ml Q15M PRN IV DECREASED GLUCOSE; Start 11/20/16 at 07:30 Glucagon (Glucagen) 1 mg Q15M PRN IM DECREASED GLUCOSE; Start 11/20/16 at 07: 30 Glucose (Glutose) 15 gm Q15M PRN BUCCAL DECREASED GLUCOSE; Start 11/20/16 at 07:30 Carvedilol 3.125 mg 3.125 mg BID PO Last administered on 11/30/16 08:22; Admin Dose 3.125 MG; Start 11/21/16 at 09:00 Levofloxacin/ Dextrose (Levaquin 750 Mg/ D5W 150 ml (Pmx)) 150 ml @ 100 mls/hr Q48H IVPB Last administered on 11/28/16 11:51; Admin Dose 100 MLS/HR; Start 11/26/16 at 12:00 Assessment/Plan Chief Complaint/Hosp Course Assessment 1. moderate / large loculated right pleural effusion exudative in nature 2. Renal insufficiency 3. Anemia questionable of chronic disease 4. Ascites status post paracentesis 5. Significant cardiac risk. Recommendations 1. Thoracic surgery evaluation for video-assisted thoracic decortication, repeat CT chest shows persistent effusion. IR Placement if chest tube today. 2. Monitor H/H. 3. Renal recommendations 4. DVT and GI prophylaxis 5. Cardiology recs Overall prognosis guarded Problems: JACQUELIN MANUEL MD, [facility] Nov 30, 2016 11:31
--- NOTE | 2016-11-30 11:36 | PN ---
Date/Time of Note Date/Time of Note DATE: 11/30/16 TIME: 11:33 Assessment/Plan VTE Prophylaxis VTE Prophylaxis Intervention: contraindicated VTE Contraindication Reason: blood coagulation disorder Lines/Catheters [facility] Urinary Cath still in place: No Assessment/Plan Chief Complaint/Hosp Course Assessment/Plan: 66 M with: 1. Shortness of breath, secondary to large pleural effusion. - s/p thoracentesis - exudative in nature, also with hemoptysis - sequelae of infx vs overt heart failure - appreciate pulm- send out for sputum cultures, continue abx as well - per CTS eval - now getting pleurX or pigtail cath for thorax 2. Chest pain - pleuritic in nature - most likely secondary to above - slightly improved - monitor - f/u CV rec's 3. Abdominal distention, from ascites, likely secondary to alcoholic liver disease - s/p paracentesis - monitor acute changes, abd x-ray negative - f/u cytology 4. Cardiomyopathy with systolic dysfunction - EF 35%, Stage III/IV diastolic dysfunction, - strict I/O's, diuresis 5. Chronic kidney disease -Nonoliguric acute kidney injury on top of chronic kidney disease stage IIIB/IV with a baseline creatinine of 1.52 mg/dL. Hepatorenal with cardio renal - renally adjust medications, avoid nephrotoxins - if worsening - possible dialysis - appreciate nephro consult - diamox added 6. Hyperkalemia - presently stable - if > 5.5 - kayexlate - will give 15 mg po 7. Atrial fibrillation, rate controlled and in sinus - hold anticoagulation - 2/2 to coagulopathy 8. Coagulopathy - hepatitis panel Hep B core antigen + : most likely chronic liver disease - monitor 9. Gastric and colon cancer status post surgery and chemo. 10. Hepatitis B - chronic - standard precautions 11. Alcohol abuse - monitor labs 12. Megaloblastic anemia, most likely secondary to anemia of chronic disease. - nl folate/vitb12 13. GI ppx - protonix 14. DVT ppx - scds dispo - f/u labs, f/u cytology paracentesis Problems: Subjective 24 Hr Interval Summary Free Text/Dictation Pt off floor at radiology, no acute events overnight. Exam/Review of Systems Vital Signs Vitals Vital Signs Date Time Temp Pulse Resp B/P Pulse Ox O2 Delivery O2 Flow Rate FiO2 11/30/16 09:23 95 21 11/30/16 09:21 72 20 11/30/16 07:33 99.7 107/56 11/27/16 08:00 Nasal Cannula 2.0 Intake and Output 11/29/16 11/29/16 11/30/16 15:00 23:00 07:00 Intake Total 240 ml 560 ml 500 ml Output Total 400 ml 1000 ml 1200 ml Balance -160 ml -440 ml -700 ml Exam PE: - unable to be performed b/c pt at radiology presently. Results Result Diagram: 11/29/1662411/29/16624 Results 24 hrs Laboratory Tests Test 11/29/16 12:01 11/29/16 17:36 11/29/16 20:59 11/30/16 02:14 Bedside Glucose 146 122 194 134 Test 11/30/16 05:15 11/30/16 07:43 INR International Normalized Ratio 1.20 Prothrombin Time 15.3 H Prothrombin Time Ratio 1.2 Bedside Glucose 91 Medications Medications Current Medications Diagnostic Test (Pha) (Accucheck) 1 ea 02 XX Last administered on 11/30/16 02: 00; Admin Dose 1 EA; Start 11/19/16 at 02:00 Acetaminophen (Tylenol Tab) 650 mg Q6H PRN PO PAIN AND OR ELEVATED TEMP; Start 11/19/16 at 01:00 Ondansetron HCl (Zofran Inj) 4 mg Q6H PRN IV NAUSEA AND/OR VOMITING Last administered on 11/19/16at 03:35; Admin Dose 4 MG; Start 11/19/16 at 01:00 Aspirin (Aspirin) 81 mg DAILY PO Last administered on 11/30/16 08:21; Admin Dose 81 MG; Start 11/19/16 at 09:00 Atorvastatin Calcium (Lipitor) 40 mg HS PO Last administered on 11/29/16 21:05 ; Admin Dose 40 MG; Start 11/19/16 at 21:00 Benazepril HCl (Lotensin) 20 mg DAILY PO Last administered on 11/19/16at 09:03 ; Admin Dose 20 MG; Start 11/19/16 at 09:00; Status Future Hold Famotidine (Pepcid) 20 mg DAILY PO Last administered on 11/30/16 08:21; Admin Dose 20 MG; Start 11/19/16 at 09:00 Morphine Sulfate (morphine) 3 mg Q4H PRN IV PAIN Last administered on 11/30/16 08:26; Admin Dose 3 MG; Start 11/19/16 at 01:30 Metoclopramide HCl (Reglan) 10 mg Q6H PRN IV VOMITTING Last administered on at 05:21; Admin Dose 10 MG; Start 11/19/16 at 05:00 Miscellaneous Information 1 ea NOTE XX ; Start 11/20/16 at 07:30 Glucose (Glutose) 15 gm Q15M PRN PO DECREASED GLUCOSE; Start 11/20/16 at 07:30 Glucose (Glutose) 22.5 gm Q15M PRN PO DECREASED GLUCOSE; Start 11/20/16 at 07: 30 Dextrose (D50w Syringe) 25 ml Q15M PRN IV DECREASED GLUCOSE; Start 11/20/16 at 07:30 Dextrose (D50w Syringe) 50 ml Q15M PRN IV DECREASED GLUCOSE; Start 11/20/16 at 07:30 Glucagon (Glucagen) 1 mg Q15M PRN IM DECREASED GLUCOSE; Start 11/20/16 at 07: 30 Glucose (Glutose) 15 gm Q15M PRN BUCCAL DECREASED GLUCOSE; Start 11/20/16 at 07:30 Carvedilol 3.125 mg 3.125 mg BID PO Last administered on 11/30/16 08:22; Admin Dose 3.125 MG; Start 11/21/16 at 09:00 Levofloxacin/ Dextrose (Levaquin 750 Mg/ D5W 150 ml (Pmx)) 150 ml @ 100 mls/hr Q48H IVPB Last administered on 11/28/16 11:51; Admin Dose 100 MLS/HR; Start 11/26/16 at 12:00 ANA MARÍA RAND Nov 30, 2016 11:36
--- NOTE | 2016-11-30 11:49 | RADRPT ---
PROCEDURE: Fluoroscopic and ultrasound guided placement of right chest tube. CLINICAL INDICATION: Right pleural effusion which is partially loculated. Shortness of breath. TECHNIQUE: Informed consent was obtained. The procedure, risks, benefits, complications and alternatives were explained to the patient. Risks including bleeding, infection, and pneumothorax were explained. The patient understood and was willing to proceed. A procedural pause was performed. The patient's name, date of , and procedure to be performed w ere verified. The right posterior lateral chest wall hernandez prepped and draped in usual sterile fashion. Following the local injection of 1% lidocaine, a 19-gauge Yueh needle was advanced into the right pl eural space via the posterior lateral chest wall with ultrasound guidance. The Yueh metal needle was removed leaving the plastic outer cannula in position. A 0.035 inch guidewire was advanced into th e right pleural space through the plastic cannula with fluoroscopic guidance. The plastic cannula w as removed. The tract was dilated to 10 Bengali and a 810.2 Bengali multipurpose drainage catheter wa s then advanced over the guide wire. The guidewire was removed. Fluoroscopic guidance demonstrates the catheter in satisfactory position within the pleural space. The catheter was sutured to the pa tient's skin with 12/2006. A dressing was applied. The patient tolerated procedure well. A Pleur-Evac valve was attached to th e end of the chest tube. COMPARISON: CT scan of the chest 81 02/08. FINDINGS: Final images demonstrate the tip of the catheter in the mid right pleural space. A total of 0.1 min utes of fluoroscopy time was used. IMPRESSION: 1. Successful ultrasound and fluoroscopic guided placement of right chest tube. RPTAT: QQ .Adrian Sosa MD, Date Time Electronically viewed and signed by .Adrian Sosa MD, MD on 11/30/2016 11:48 .R/
[2016-11-30] MEDS: LEVOFLOXACIN 750MG/D5W (PMX) 150 ML IVPB SCH (12:20)
[2016-11-30 12:38] LABS: POTASSIUM 3.3 mmol/L (3.5-5.1)
[2016-11-30 12:41] LABS: CREATININE 1.82 mg/dl (0.61-1.24)
[2016-11-30 12:42] LABS: CALCIUM 8.6 mg/dl (8.4-10.2)
[2016-11-30 13:26] LABS: BASOPHIL # 0.1 10^3/ul (0.0-0.1); BASOPHILS % 0.5 % (0.0-2.0); EOSINOPHILS # 0.1 10^3/ul (0.0-0.5); EOSINOPHILS % 0.6 % (0.0-7.0); HEMOGLOBIN 11.7 g/dl (14.0-18.0); LYMPHOCYTES # 1.2 10^3/ul (0.8-2.9); LYMPHOCYTES % 12.7 % (15.0-51.0); MEAN CORPUSCULAR HEMOGLOBIN 31.8 pg (29.0-33.0); MEAN CORPUSCULAR HGB CONC 34.5 g/dl (32.0-37.0); MEAN CORPUSCULAR VOLUME 91.9 fl (82.0-101.0); MEAN PLATELET VOLUME 9.5 fl (7.4-10.4); MONOCYTES % 10.3 % (0.0-11.0); NEUTROPHIL # 7.3 10^3/ul (1.6-7.5); NEUTROPHILS % 75.9 % (39.0-77.0); PLATELET COUNT 204 10^3/UL (140-440); RED CELL DISTRIBUTION WIDTH 19.1 % (11.5-14.5); UNCORRECTED WBC 9.6 10^3/ul (4.8-10.8); WHITE BLOOD COUNT 9.6 10^3/ul (4.8-10.8)
[2016-11-30 13:28] LABS: CONDITION 1; LH ANALYZER COMMENTS 1
[2016-11-30 15:14] LABS: MICROALBUMIN 2.2 mg/dL
--- NOTE | 2016-11-30 16:36 | CONS ---
Date/Time of Note Date/Time of Note DATE: 11/30/16 TIME: 16:33 Consult Date/Type/Reason Admit Date/Time Nov 18, 2016 at 20:54 Type of Consultation: Pulm Subjective SUBJECTIVE: The patient is stable, no acute events overnight. No fevers, chills, nausea, vomiting. Mild shortness of breath. IR placed chest tube today. OBJECTIVE: HEENT: Head is normocephalic. NECK: Supple. HEART: Regular rate. LUNGS: Show diminished breath sounds at the base. ABDOMEN: Soft, nontender to palpation. No rebound or guarding. EXTREMITIES: Negative for clubbing, cyanosis. Positive edema. DERMATOLOGIC: No rashes. MUSCULOSKELETAL: No joint effusions. NEUROLOGIC: No change in exam. ASSESSMENT AND PLAN: 1. Nonoliguric acute kidney injury on top of chronic kidney disease stage IIIB/ IV with previous baseline creatinine of 1.5 mg/dL. Etiology of acute kidney injury secondary to cardiorenal syndrome, hemodynamics. Renal function had been improving on current diuretic regimen bu now with mild azotemia of unknown significance. repeat labs. avoid nephrotoxins. all meds dosed ok. 2. Hyperkalemia, improved. Continue to monitor. 3. Acute systolic congestive heart failure. The patient is currently decompensated as stated above. Continue current diuretic regimen. The patient was seen by cardiology, pending possible stress test once clinically stable. 4. Anemia of chronic disease. Continue to monitor H and H levels. 5. Mineral bone disorder. Continue to monitor calcium and phosphorus levels. No need for phosphorus binders. 6. Pleural effusion, loculated. The patient is ir for chest tube placement. Follow up with CT surgery. 7. Acute respiratory failure secondary to CHF, slowly improving. Continue to monitor. Continue medical management. 8. Ascites, likely cardiac in nature. The patient is status post thoracentesis. 9. Atrial fibrillation. Continue medical management. 10. History of gastric and colon carcinoma. Objective Vital Signs Date Time Temp Pulse Resp B/P Pulse Ox O2 Delivery O2 Flow Rate FiO2 11/30/16 16:24 99.0 74 20 109/66 99 11/30/16 13:58 21 11/30/16 11:30 Nasal Cannula 3 Intake and Output 11/29/16 11/29/16 11/30/16 15:00 23:00 07:00 Intake Total 240 ml 560 ml 500 ml Output Total 400 ml 1000 ml 1200 ml Balance -160 ml -440 ml -700 ml Results/Medications Result Diagram: 11/30/16 1216 11/30/16 1216 Results 24 hrs Laboratory Tests Test 11/29/16 17:36 11/29/16 20:59 11/30/16 02:14 11/30/16 05:15 Bedside Glucose 122 194 134 INR International Normalized Ratio 1.20 Prothrombin Time 15.3 H Prothrombin Time Ratio 1.2 Test 11/30/16 07:43 11/30/16 12:16 11/30/16 12:17 Bedside Glucose 91 81 Anion Gap 17 H Basophils # 0.1 Basophils % 0.5 Blood Morphology Comment Blood Urea Nitrogen 36 H Calcium Level 8.6 Carbon Dioxide Level 29 Chloride Level 92 L Creatinine 1.82 H Eosinophils # 0.1 Eosinophils % 0.6 Glucose Level 74 Hematocrit 34.0 L Hemoglobin 11.7 L Lymphocytes # 1.2 Lymphocytes % 12.7 L Mean Corpuscular Hemoglobin 31.8 Mean Corpuscular Hemoglobin Concent 34.5 Mean Corpuscular Volume 91.9 Mean Platelet Volume 9.5 Monocytes # 1.0 H Monocytes % 10.3 Neutrophils # 7.3 Neutrophils % 75.9 Nucleated Red Blood Cells # 0.0 Nucleated Red Blood Cells % 0.0 Platelet Count 204 Potassium Level 3.3 L Red Blood Count 3.70 L Red Cell Distribution Width 19.1 H Sodium Level 135 White Blood Count 9.6 # Medications Current Medications Diagnostic Test (Pha) (Accucheck) 1 ea 02 XX Last administered on 11/30/16 02: 00; Admin Dose 1 EA; Start 11/19/16 at 02:00 Acetaminophen (Tylenol Tab) 650 mg Q6H PRN PO PAIN AND OR ELEVATED TEMP; Start 11/19/16 at 01:00 Ondansetron HCl (Zofran Inj) 4 mg Q6H PRN IV NAUSEA AND/OR VOMITING Last administered on 11/19/16at 03:35; Admin Dose 4 MG; Start 11/19/16 at 01:00 Aspirin (Aspirin) 81 mg DAILY PO Last administered on 11/30/16 08:21; Admin Dose 81 MG; Start 11/19/16 at 09:00 Atorvastatin Calcium (Lipitor) 40 mg HS PO Last administered on 11/29/16 21:05 ; Admin Dose 40 MG; Start 11/19/16 at 21:00 Benazepril HCl (Lotensin) 20 mg DAILY PO Last administered on 11/19/16at 09:03 ; Admin Dose 20 MG; Start 11/19/16 at 09:00; Status Future Hold Famotidine (Pepcid) 20 mg DAILY PO Last administered on 11/30/16 08:21; Admin Dose 20 MG; Start 11/19/16 at 09:00 Morphine Sulfate (morphine) 3 mg Q4H PRN IV PAIN Last administered on 11/30/16 14:46; Admin Dose 3 MG; Start 11/19/16 at 01:30 Metoclopramide HCl (Reglan) 10 mg Q6H PRN IV VOMITTING Last administered on at 05:21; Admin Dose 10 MG; Start 11/19/16 at 05:00 Miscellaneous Information 1 ea NOTE XX ; Start 11/20/16 at 07:30 Glucose (Glutose) 15 gm Q15M PRN PO DECREASED GLUCOSE; Start 11/20/16 at 07:30 Glucose (Glutose) 22.5 gm Q15M PRN PO DECREASED GLUCOSE; Start 11/20/16 at 07: 30 Dextrose (D50w Syringe) 25 ml Q15M PRN IV DECREASED GLUCOSE; Start 11/20/16 at 07:30 Dextrose (D50w Syringe) 50 ml Q15M PRN IV DECREASED GLUCOSE; Start 11/20/16 at 07:30 Glucagon (Glucagen) 1 mg Q15M PRN IM DECREASED GLUCOSE; Start 11/20/16 at 07: 30 Glucose (Glutose) 15 gm Q15M PRN BUCCAL DECREASED GLUCOSE; Start 11/20/16 at 07:30 Carvedilol 3.125 mg 3.125 mg BID PO Last administered on 11/30/16 08:22; Admin Dose 3.125 MG; Start 11/21/16 at 09:00 Levofloxacin/ Dextrose (Levaquin 750 Mg/ D5W 150 ml (Pmx)) 150 ml @ 100 mls/hr Q48H IVPB Last administered on 11/30/16 12:20; Admin Dose 100 MLS/HR; Start 11/26/16 at 12:00 ELIN ORTA MD Nov 30, 2016 16:36
--- NOTE | 2016-11-30 17:06 | PN ---
Date/Time of Note Date/Time of Note DATE: 11/30/16 TIME: 17:04 Assessment/Plan Lines/Catheters IV Catheter Type (from Nrsg): Saline Lock [place] in Place (from Nrsg): No Assessment/Plan Chief Complaint/Hosp Course Would need right video-assisted thoracic surgery, decortication however he is at high risk for surgery SPr pigtail cath placement per IR will continue CT sxn Problems: Subjective 24 Hr Interval Summary Constitutional: improved Pain Control: mild Exam/Review of Systems Vital Signs Vitals Vital Signs Date Time Temp Pulse Resp B/P Pulse Ox O2 Delivery O2 Flow Rate FiO2 11/30/16 16:24 99.0 74 20 109/66 99 11/30/16 13:58 21 11/30/16 11:30 Nasal Cannula 3 Intake and Output 11/29/16 11/29/16 11/30/16 15:00 23:00 07:00 Intake Total 240 ml 560 ml 500 ml Output Total 400 ml 1000 ml 1200 ml Balance -160 ml -440 ml -700 ml Exam ENMT: mucosa pink and moist, nl external ears & nose, nl lips & teeth, nl nasal mucosa & septum Neck: non-tender, supple Respiratory: clear to auscultation, normal air movement Cardiovascular: nl pulses, regular rate and rhythm Results Result Diagram: 11/30/16 1216 11/30/16 1216 DIEGO WEIR MD Nov 30, 2016 17:06
[2016-11-30] MEDS: ATORVASTATIN 40 MG TAB PO SCH (20:40)
[2016-11-30] MEDS: ONDANSETRON 4 MG INJ IV PRN (23:32)
[2016-12-01] VITALS (12 sets, daily range): BP systolic 93–101; BP diastolic 53–60; PULSE 69–73; RESP 18–22
[2016-12-01] MEDS: ALBUTEROL/IPRATROPIUM (NEB) 3 ML AMP HHN SCH ×6 (00:22→20:36)
[2016-12-01] MEDS: ACCUCHECK XX SCH (02:00)
[2016-12-01] MEDS: FUROSEMIDE 20 MG INJ IV SCH (06:00)
[2016-12-01 06:26] LABS: BASOPHILS % 0.2 % (0.0-2.0); EOSINOPHILS % 0.2 % (0.0-7.0); HEMATOCRIT 33.5 % (42.0-52.0); HEMOGLOBIN 11.8 g/dl (14.0-18.0); LYMPHOCYTES # 1.4 10^3/ul (0.8-2.9); LYMPHOCYTES % 11.5 % (15.0-51.0); MEAN CORPUSCULAR HEMOGLOBIN 33.1 pg (29.0-33.0); MEAN CORPUSCULAR HGB CONC 35.3 g/dl (32.0-37.0); MEAN CORPUSCULAR VOLUME 93.8 fl (82.0-101.0); MEAN PLATELET VOLUME 9.2 fl (7.4-10.4); MONOCYTE # 1.2 10^3/ul (0.3-0.9); MONOCYTES % 9.8 % (0.0-11.0); NEUTROPHIL # 9.4 10^3/ul (1.6-7.5); NEUTROPHILS % 78.3 % (39.0-77.0); PLATELET COUNT 209 10^3/UL (140-440); RED BLOOD COUNT 3.57 10^6/ul (4.70-6.10); RED CELL DISTRIBUTION WIDTH 19.4 % (11.5-14.5); UNCORRECTED WBC 12.1 10^3/ul (4.8-10.8); WHITE BLOOD COUNT 12.1 10^3/ul (4.8-10.8)
[2016-12-01 06:41] LABS: CONDITION 1; LH ANALYZER COMMENTS 1
--- NOTE | 2016-12-01 06:44 | PN ---
Date/Time of Note Date/Time of Note DATE: 12/01/16 TIME: 06:41 Assessment/Plan VTE Prophylaxis VTE Prophylaxis Intervention: SCD's Lines/Catheters [facility] Peripheral IV Urinary Cath still in place: No Assessment/Plan Assessment/Plan 1. Hypoxemic respiratory failure. 2. Congestive heart failure. 3. Severe cardiomyopathy, unclear, ischemic versus nonischemic. 4. Pleural effusion, appears to be loculated. 5. Anemia. 6. Paroxysmal atrial fibrillation. RECOMMENDATIONS: s/p pigtail catheter for pleural effusions by IR High risk for video-assisted thoracotomy given the patient's multiple complications and high risk. Excellent Diuresis with patient putting out 7 liters > will decrease lasix to daily today Heart rate currently controlled. Aspirin will be continued as well. EMMIE inhibitor has been on hold due to his renal failure and renal service involved No stress tesgin for now Subjective 24 Hr Interval Summary Free Text/Dictation the patient with negative 7 liters overnight and stable Exam/Review of Systems Vital Signs Vitals Vital Signs Date Time Temp Pulse Resp B/P Pulse Ox O2 Delivery O2 Flow Rate FiO2 12/01/16 05:36 71 20 98 21 12/01/16 04:55 99.8 93/55 11/30/16 11:30 Nasal Cannula 3 Intake and Output 11/30/16 11/30/16 12/01/16 15:00 23:00 07:00 Intake Total 200 ml 360 ml 400 ml Output Total 850 ml 5600 ml 1669 ml Balance -650 ml -5240 ml -1269 ml Results Result Diagram: 11/30/16 1216 11/30/16 1216 Results 24 hrs Laboratory Tests Test 11/30/16 07:43 11/30/16 12:16 11/30/16 12:17 11/30/16 18:02 Bedside Glucose 91 81 116 Anion Gap 17 H Basophils # 0.1 Basophils % 0.5 Blood Morphology Comment Blood Urea Nitrogen 36 H Calcium Level 8.6 Carbon Dioxide Level 29 Chloride Level 92 L Creatinine 1.82 H Eosinophils # 0.1 Eosinophils % 0.6 Glucose Level 74 Hematocrit 34.0 L Hemoglobin 11.7 L Lymphocytes # 1.2 Lymphocytes % 12.7 L Mean Corpuscular Hemoglobin 31.8 Mean Corpuscular Hemoglobin Concent 34.5 Mean Corpuscular Volume 91.9 Mean Platelet Volume 9.5 Monocytes # 1.0 H Monocytes % 10.3 Neutrophils # 7.3 Neutrophils % 75.9 Nucleated Red Blood Cells # 0.0 Nucleated Red Blood Cells % 0.0 Platelet Count 204 Potassium Level 3.3 L Red Blood Count 3.70 L Red Cell Distribution Width 19.1 H Sodium Level 135 White Blood Count 9.6 # Test 11/30/16 20:30 Bedside Glucose 101 Medications Medications Current Medications Diagnostic Test (Pha) (Accucheck) 1 ea 02 XX Last administered on 11/30/16 02: 00; Admin Dose 1 EA; Start 11/19/16 at 02:00 Acetaminophen (Tylenol Tab) 650 mg Q6H PRN PO PAIN AND OR ELEVATED TEMP; Start 11/19/16 at 01:00 Ondansetron HCl (Zofran Inj) 4 mg Q6H PRN IV NAUSEA AND/OR VOMITING Last administered on 11/30/16 23:32; Admin Dose 4 MG; Start 11/19/16 at 01:00 Aspirin (Aspirin) 81 mg DAILY PO Last administered on 11/30/16 08:21; Admin Dose 81 MG; Start 11/19/16 at 09:00 Atorvastatin Calcium (Lipitor) 40 mg HS PO Last administered on 11/30/16 20:40 ; Admin Dose 40 MG; Start 11/19/16 at 21:00 Benazepril HCl (Lotensin) 20 mg DAILY PO Last administered on 11/19/16at 09:03 ; Admin Dose 20 MG; Start 11/19/16 at 09:00; Status Future Hold Famotidine (Pepcid) 20 mg DAILY PO Last administered on 11/30/16 08:21; Admin Dose 20 MG; Start 11/19/16 at 09:00 Morphine Sulfate (morphine) 3 mg Q4H PRN IV PAIN Last administered on 11/30/16 14:46; Admin Dose 3 MG; Start 11/19/16 at 01:30 Metoclopramide HCl (Reglan) 10 mg Q6H PRN IV VOMITTING Last administered on at 05:21; Admin Dose 10 MG; Start 11/19/16 at 05:00 Miscellaneous Information 1 ea NOTE XX ; Start 11/20/16 at 07:30 Glucose (Glutose) 15 gm Q15M PRN PO DECREASED GLUCOSE; Start 11/20/16 at 07:30 Glucose (Glutose) 22.5 gm Q15M PRN PO DECREASED GLUCOSE; Start 11/20/16 at 07: 30 Dextrose (D50w Syringe) 25 ml Q15M PRN IV DECREASED GLUCOSE; Start 11/20/16 at 07:30 Dextrose (D50w Syringe) 50 ml Q15M PRN IV DECREASED GLUCOSE; Start 11/20/16 at 07:30 Glucagon (Glucagen) 1 mg Q15M PRN IM DECREASED GLUCOSE; Start 11/20/16 at 07: 30 Glucose (Glutose) 15 gm Q15M PRN BUCCAL DECREASED GLUCOSE; Start 11/20/16 at 07:30 Carvedilol 3.125 mg 3.125 mg BID PO Last administered on 11/30/16 20:41; Admin Dose 3.125 MG; Start 11/21/16 at 09:00 Levofloxacin/ Dextrose (Levaquin 750 Mg/ D5W 150 ml (Pmx)) 150 ml @ 100 mls/hr Q48H IVPB Last administered on 11/30/16 12:20; Admin Dose 100 MLS/HR; Start 11/26/16 at 12:00 ALYSE VAIL MD Dec 01, 2016 06:43
[2016-12-01] MEDS ORDERED: FUROSEMIDE 40 MG INJ IV SCH (06:45)
[2016-12-01 07:05] LABS: POTASSIUM 3.3 mmol/L (3.5-5.1)
[2016-12-01 07:07] LABS: CREATININE 2.25 mg/dl (0.61-1.24)
[2016-12-01 07:08] LABS: CALCIUM 8.7 mg/dl (8.4-10.2)
[2016-12-01] MEDS: INSULIN ASPART [NOVOLOG] 3 ML PEN SC SCH ×4 (07:55→20:28)
--- NOTE | 2016-12-01 08:11 | CONS ---
Date/Time of Note Date/Time of Note DATE: 12/01/16 TIME: 08:07 Consult Date/Type/Reason Admit Date/Time Nov 18, 2016 at 20:54 Type of Consultation: Pulm Subjective SUBJECTIVE: The patient is stable, no acute events overnight. No fevers, chills, nausea, vomiting. Mild shortness of breath. IR placed chest tube yesterday. OBJECTIVE: HEENT: Head is normocephalic. NECK: Supple. HEART: Regular rate. LUNGS: Show diminished breath sounds at the base. ABDOMEN: Soft, nontender to palpation. No rebound or guarding. EXTREMITIES: Negative for clubbing, cyanosis. Positive edema. DERMATOLOGIC: No rashes. MUSCULOSKELETAL: No joint effusions. NEUROLOGIC: No change in exam. ASSESSMENT AND PLAN: 1. Nonoliguric acute kidney injury on top of chronic kidney disease stage IIIB/ IV with previous baseline creatinine of 1.5 mg/dL. Etiology of acute kidney injury secondary to cardiorenal syndrome, hemodynamics. Renal function had been improving on diuretic regimen but now with mild azotemia of unknown significance. repeat labs. avoid nephrotoxins. all meds dosed ok. will hold lasix today. benazepril already held. 2. Hyperkalemia, improved. Continue to monitor. 3. Acute systolic congestive heart failure. The patient is currently decompensated as stated above. Continue current diuretic regimen. The patient was seen by cardiology, pending possible stress test once clinically stable. 4. Anemia of chronic disease. Continue to monitor H and H levels. 5. Mineral bone disorder. Continue to monitor calcium and phosphorus levels. No need for phosphorus binders. 6. Pleural effusion, loculated. The patient is ir for chest tube placement. Follow up with CT surgery. 7. Acute respiratory failure secondary to CHF, slowly improving. Continue to monitor. Continue medical management. 8. Ascites, likely cardiac in nature. The patient is status post thoracentesis. 9. Atrial fibrillation. Continue medical management. 10. History of gastric and colon carcinoma. Objective Vital Signs Date Time Temp Pulse Resp B/P Pulse Ox O2 Delivery O2 Flow Rate FiO2 12/01/16 05:36 71 20 98 21 12/01/16 04:55 99.8 93/55 11/30/16 11:30 Nasal Cannula 3 Intake and Output 11/30/16 11/30/16 12/01/16 15:00 23:00 07:00 Intake Total 200 ml 360 ml 400 ml Output Total 850 ml 5600 ml 1669 ml Balance -650 ml -5240 ml -1269 ml Results/Medications Result Diagram: 12/01/16 0540 12/01/16 0540 Results 24 hrs Laboratory Tests Test 11/30/16 12:16 11/30/16 12:17 11/30/16 18:02 11/30/16 20:30 Anion Gap 17 H Basophils # 0.1 Basophils % 0.5 Blood Morphology Comment Blood Urea Nitrogen 36 H Calcium Level 8.6 Carbon Dioxide Level 29 Chloride Level 92 L Creatinine 1.82 H Eosinophils # 0.1 Eosinophils % 0.6 Glucose Level 74 Hematocrit 34.0 L Hemoglobin 11.7 L Lymphocytes # 1.2 Lymphocytes % 12.7 L Mean Corpuscular Hemoglobin 31.8 Mean Corpuscular Hemoglobin Concent 34.5 Mean Corpuscular Volume 91.9 Mean Platelet Volume 9.5 Monocytes # 1.0 H Monocytes % 10.3 Neutrophils # 7.3 Neutrophils % 75.9 Nucleated Red Blood Cells # 0.0 Nucleated Red Blood Cells % 0.0 Platelet Count 204 Potassium Level 3.3 L Red Blood Count 3.70 L Red Cell Distribution Width 19.1 H Sodium Level 135 White Blood Count 9.6 # Bedside Glucose 81 116 101 Test 12/01/16 05:40 12/01/16 07:52 Anion Gap 19 H Basophils # 0.0 Basophils % 0.2 Blood Morphology Comment Blood Urea Nitrogen 43 H Calcium Level 8.7 Carbon Dioxide Level 29 Chloride Level 90 L Creatinine 2.25 H Eosinophils # 0.0 Eosinophils % 0.2 Glucose Level 80 Hematocrit 33.5 L Hemoglobin 11.8 L Lymphocytes # 1.4 Lymphocytes % 11.5 L Mean Corpuscular Hemoglobin 33.1 H Mean Corpuscular Hemoglobin Concent 35.3 Mean Corpuscular Volume 93.8 Mean Platelet Volume 9.2 Monocytes # 1.2 H Monocytes % 9.8 Neutrophils # 9.4 H Neutrophils % 78.3 H Nucleated Red Blood Cells # 0.0 Nucleated Red Blood Cells % 0.0 Platelet Count 209 Potassium Level 3.3 L Red Blood Count 3.57 L Red Cell Distribution Width 19.4 H Sodium Level 135 White Blood Count 12.1 #H Bedside Glucose 95 Medications Current Medications Diagnostic Test (Pha) (Accucheck) 1 ea 02 XX Last administered on 11/30/16 02: 00; Admin Dose 1 EA; Start 11/19/16 at 02:00 Acetaminophen (Tylenol Tab) 650 mg Q6H PRN PO PAIN AND OR ELEVATED TEMP; Start 11/19/16 at 01:00 Ondansetron HCl (Zofran Inj) 4 mg Q6H PRN IV NAUSEA AND/OR VOMITING Last administered on 11/30/16 23:32; Admin Dose 4 MG; Start 11/19/16 at 01:00 Aspirin (Aspirin) 81 mg DAILY PO Last administered on 11/30/16 08:21; Admin Dose 81 MG; Start 11/19/16 at 09:00 Atorvastatin Calcium (Lipitor) 40 mg HS PO Last administered on 11/30/16 20:40 ; Admin Dose 40 MG; Start 11/19/16 at 21:00 Benazepril HCl (Lotensin) 20 mg DAILY PO Last administered on 11/19/16at 09:03 ; Admin Dose 20 MG; Start 11/19/16 at 09:00; Status Future Hold Famotidine (Pepcid) 20 mg DAILY PO Last administered on 11/30/16 08:21; Admin Dose 20 MG; Start 11/19/16 at 09:00 Morphine Sulfate (morphine) 3 mg Q4H PRN IV PAIN Last administered on 11/30/16 14:46; Admin Dose 3 MG; Start 11/19/16 at 01:30 Metoclopramide HCl (Reglan) 10 mg Q6H PRN IV VOMITTING Last administered on at 05:21; Admin Dose 10 MG; Start 11/19/16 at 05:00 Miscellaneous Information 1 ea NOTE XX ; Start 11/20/16 at 07:30 Glucose (Glutose) 15 gm Q15M PRN PO DECREASED GLUCOSE; Start 11/20/16 at 07:30 Glucose (Glutose) 22.5 gm Q15M PRN PO DECREASED GLUCOSE; Start 11/20/16 at 07: 30 Dextrose (D50w Syringe) 25 ml Q15M PRN IV DECREASED GLUCOSE; Start 11/20/16 at 07:30 Dextrose (D50w Syringe) 50 ml Q15M PRN IV DECREASED GLUCOSE; Start 11/20/16 at 07:30 Glucagon (Glucagen) 1 mg Q15M PRN IM DECREASED GLUCOSE; Start 11/20/16 at 07: 30 Glucose (Glutose) 15 gm Q15M PRN BUCCAL DECREASED GLUCOSE; Start 11/20/16 at 07:30 Carvedilol 3.125 mg 3.125 mg BID PO Last administered on 11/30/16 20:41; Admin Dose 3.125 MG; Start 11/21/16 at 09:00 Levofloxacin/ Dextrose (Levaquin 750 Mg/ D5W 150 ml (Pmx)) 150 ml @ 100 mls/hr Q48H IVPB Last administered on 11/30/16 12:20; Admin Dose 100 MLS/HR; Start 11/26/16 at 12:00 Furosemide (Lasix) 40 mg DAILY@06 IV ; Start 12/01/16 at 06:45 ELIN ORTA MD Dec 01, 2016 08:10
[2016-12-01] MEDS: FAMOTIDINE 20 MG TAB PO SCH (08:25)
[2016-12-01] MEDS: ASPIRIN 81 MG TAB PO SCH (08:25)
--- NOTE | 2016-12-01 12:45 | RADRPT ---
PROCEDURE: XR Chest. CLINICAL INDICATION: CHF TECHNIQUE: Frontal chest x-ray was obtained. COMPARISON: Chest x-ray November 22, 2016 FINDINGS: There has been interval insertion of a pigtail drain into the right pleural cavity with evacuation o f previously noted pleural effusion. Heart is not enlarged. Mediastinum is not widened. No hilar masses seen. Lungs are clear of any i nfiltrates. There is minimal fibrosis or atelectasis at the right lung base. No effusion or pneumo thorax is present. IMPRESSION: Minimal fibrosis or atelectasis right lung base. Status post drainage of right pleural effusion. .Bobby Murillo MD, MD Date Time Electronically viewed and signed by .Bobby Murillo MD, MD on 12/01/2016 12:44 .A/
--- NOTE | 2016-12-01 14:22 | PN ---
Date/Time of Note Date/Time of Note DATE: 12/01/16 TIME: 14:19 Assessment/Plan VTE Prophylaxis VTE Prophylaxis Intervention: contraindicated VTE Contraindication Reason: blood coagulation disorder Lines/Catheters IV [facility] (from [facility] Saline Lock Urinary Cath still in place: No Assessment/Plan Chief Complaint/Hosp Course Assessment/Plan: 66 M with: 1. Shortness of breath, secondary to large pleural effusion. - s/p thoracentesis - exudative in nature, also with hemoptysis - sequelae of infx vs overt heart failure - appreciate pulm- send out for sputum cultures, continue abx as well - s/p pleurX/pigtail cath placement yesterday - monitor drainage 2. Chest pain - pleuritic in nature - most likely secondary to above - slightly improved - monitor - f/u CV rec's 3. Abdominal distention, from ascites, likely secondary to alcoholic liver disease - s/p paracentesis - monitor acute changes, abd x-ray negative - f/u cytology 4. Cardiomyopathy with systolic dysfunction - EF 35%, Stage III/IV diastolic dysfunction, - strict I/O's, diuresis 5. Chronic kidney disease -Nonoliguric acute kidney injury on top of chronic kidney disease stage IIIB/IV with a baseline creatinine of 1.52 mg/dL. Hepatorenal with cardio renal - renally adjust medications, avoid nephrotoxins - if worsening - possible dialysis - appreciate nephro consult - diamox added - holding lasix today per renal rec's, monitor Cr and UO 6. Hyperkalemia - presently stable - if > 5.5 - kayexlate - will give 15 mg po 7. Atrial fibrillation, rate controlled and in sinus - hold anticoagulation - 2/2 to coagulopathy 8. Coagulopathy - hepatitis panel Hep B core antigen + : most likely chronic liver disease - monitor 9. Gastric and colon cancer status post surgery and chemo. 10. Hepatitis B - chronic - standard precautions 11. Alcohol abuse - monitor labs 12. Megaloblastic anemia, most likely secondary to anemia of chronic disease. - nl folate/vitb12 13. GI ppx - protonix 14. DVT ppx - scds dispo - f/u labs, f/u cytology paracentesis Problems: Subjective 24 Hr Interval Summary Free Text/Dictation Pt had pigtail cath placed yesterday, no acute events overnight otherwise. Exam/Review of Systems Vital Signs Vitals Vital Signs Date Time Temp Pulse Resp B/P Pulse Ox O2 Delivery O2 Flow Rate FiO2 12/01/16 12:56 70 20 94 21 12/01/16 12:10 98.7 99/58 12/01/16 08:00 Nasal Cannula 2.0 Intake and Output 11/30/16 11/30/16 12/01/16 15:00 23:00 07:00 Intake Total 200 ml 360 ml 400 ml Output Total 850 ml 5600 ml 1669 ml Balance -650 ml -5240 ml -1269 ml Exam Gen Ana: NAD, AAOx4 HEENT: NC/AT, PERRLA, EOMI NECK: supple, no thyromegaly THORAX: symmetrical, no obvious deformities CV: S1S2, RRR, no M/G/R Lungs: right some diminished breath sounds, crackles - end expiratory wheezing - scattered rhonchi - stable Abd: soft, NT/distention, mild fluid wave, +BS, no rebound, no guarding, neg HSM EXT: no edema, no ecchymosis, no clubbing, FROM Neuro: CN II-XII grossly intact, no focal deficits Psych: fair mood and affect Skin: C/D/I Results Result Diagram: 12/01/16 0540 12/01/16 0540 Results 24 hrs Laboratory Tests Test 11/30/16 18:02 11/30/16 20:30 12/01/16 05:40 12/01/16 07:52 Bedside Glucose 116 101 95 Anion Gap 19 H Basophils # 0.0 Basophils % 0.2 Blood Morphology Comment Blood Urea Nitrogen 43 H Calcium Level 8.7 Carbon Dioxide Level 29 Chloride Level 90 L Creatinine 2.25 H Eosinophils # 0.0 Eosinophils % 0.2 Glucose Level 80 Hematocrit 33.5 L Hemoglobin 11.8 L Lymphocytes # 1.4 Lymphocytes % 11.5 L Mean Corpuscular Hemoglobin 33.1 H Mean Corpuscular Hemoglobin Concent 35.3 Mean Corpuscular Volume 93.8 Mean Platelet Volume 9.2 Monocytes # 1.2 H Monocytes % 9.8 Neutrophils # 9.4 H Neutrophils % 78.3 H Nucleated Red Blood Cells # 0.0 Nucleated Red Blood Cells % 0.0 Platelet Count 209 Potassium Level 3.3 L Red Blood Count 3.57 L Red Cell Distribution Width 19.4 H Sodium Level 135 White Blood Count 12.1 #H Test 12/01/16 11:32 Bedside Glucose 114 Medications Medications Current Medications Diagnostic Test (Pha) (Accucheck) 1 ea 02 XX Last administered on 11/30/16 02: 00; Admin Dose 1 EA; Start 11/19/16 at 02:00 Acetaminophen (Tylenol Tab) 650 mg Q6H PRN PO PAIN AND OR ELEVATED TEMP; Start 11/19/16 at 01:00 Ondansetron HCl (Zofran Inj) 4 mg Q6H PRN IV NAUSEA AND/OR VOMITING Last administered on 11/30/16 23:32; Admin Dose 4 MG; Start 11/19/16 at 01:00 Aspirin (Aspirin) 81 mg DAILY PO Last administered on 12/01/16 08:25; Admin Dose 81 MG; Start 11/19/16 at 09:00 Atorvastatin Calcium (Lipitor) 40 mg HS PO Last administered on 11/30/16 20:40 ; Admin Dose 40 MG; Start 11/19/16 at 21:00 Benazepril HCl (Lotensin) 20 mg DAILY PO Last administered on 11/19/16at 09:03 ; Admin Dose 20 MG; Start 11/19/16 at 09:00; Status Future Hold Famotidine (Pepcid) 20 mg DAILY PO Last administered on 12/01/16 08:25; Admin Dose 20 MG; Start 11/19/16 at 09:00 Morphine Sulfate (morphine) 3 mg Q4H PRN IV PAIN Last administered on 11/30/16 14:46; Admin Dose 3 MG; Start 11/19/16 at 01:30 Metoclopramide HCl (Reglan) 10 mg Q6H PRN IV VOMITTING Last administered on at 05:21; Admin Dose 10 MG; Start 11/19/16 at 05:00 Miscellaneous Information 1 ea NOTE XX ; Start 11/20/16 at 07:30 Glucose (Glutose) 15 gm Q15M PRN PO DECREASED GLUCOSE; Start 11/20/16 at 07:30 Glucose (Glutose) 22.5 gm Q15M PRN PO DECREASED GLUCOSE; Start 11/20/16 at 07: 30 Dextrose (D50w Syringe) 25 ml Q15M PRN IV DECREASED GLUCOSE; Start 11/20/16 at 07:30 Dextrose (D50w Syringe) 50 ml Q15M PRN IV DECREASED GLUCOSE; Start 11/20/16 at 07:30 Glucagon (Glucagen) 1 mg Q15M PRN IM DECREASED GLUCOSE; Start 11/20/16 at 07: 30 Glucose (Glutose) 15 gm Q15M PRN BUCCAL DECREASED GLUCOSE; Start 11/20/16 at 07:30 Carvedilol 3.125 mg 3.125 mg BID PO Last administered on 12/01/16 08:26; Admin Dose 3.125 MG; Start 11/21/16 at 09:00 Levofloxacin/ Dextrose (Levaquin 750 Mg/ D5W 150 ml (Pmx)) 150 ml @ 100 mls/hr Q48H IVPB Last administered on 11/30/16 12:20; Admin Dose 100 MLS/HR; Start 11/26/16 at 12:00 ANA MARÍA RAND Dec 01, 2016 14:22
--- NOTE | 2016-12-01 15:30 | CONS ---
Date/Time of Note Date/Time of Note DATE: 12/01/16 TIME: 15:27 Consult Date/Type/Reason Admit Date/Time Nov 18, 2016 at 20:54 Initial Consult Date Type of Consultation: Pulm Subjective s/p right pleural catheter insertion. Objective Vital Signs Date Time Temp Pulse Resp B/P Pulse Ox O2 Delivery O2 Flow Rate FiO2 12/01/16 12:56 70 20 94 21 12/01/16 12:10 98.7 99/58 12/01/16 08:00 Nasal Cannula 2.0 Intake and Output 11/30/16 11/30/16 12/01/16 15:00 23:00 07:00 Intake Total 200 ml 360 ml 400 ml Output Total 850 ml 5600 ml 1669 ml Balance -650 ml -5240 ml -1269 ml MELLISSA: Supple. No JVD or lymphadenopathy. CARDIAC EXAM: S1, S2. No added sounds or murmurs. CHEST: Diminished air entry right lung ABDOMEN: Soft, nontender. No guarding or rebound. EXTREMITIES: No cyanosis, clubbing or edema. Results/Medications Result Diagram: 12/01/16 0540 12/01/16 0540 Results 24 hrs Laboratory Tests Test 11/30/16 18:02 11/30/16 20:30 12/01/16 05:40 12/01/16 07:52 Bedside Glucose 116 101 95 Anion Gap 19 H Basophils # 0.0 Basophils % 0.2 Blood Morphology Comment Blood Urea Nitrogen 43 H Calcium Level 8.7 Carbon Dioxide Level 29 Chloride Level 90 L Creatinine 2.25 H Eosinophils # 0.0 Eosinophils % 0.2 Glucose Level 80 Hematocrit 33.5 L Hemoglobin 11.8 L Lymphocytes # 1.4 Lymphocytes % 11.5 L Mean Corpuscular Hemoglobin 33.1 H Mean Corpuscular Hemoglobin Concent 35.3 Mean Corpuscular Volume 93.8 Mean Platelet Volume 9.2 Monocytes # 1.2 H Monocytes % 9.8 Neutrophils # 9.4 H Neutrophils % 78.3 H Nucleated Red Blood Cells # 0.0 Nucleated Red Blood Cells % 0.0 Platelet Count 209 Potassium Level 3.3 L Red Blood Count 3.57 L Red Cell Distribution Width 19.4 H Sodium Level 135 White Blood Count 12.1 #H Test 12/01/16 11:32 Bedside Glucose 114 Medications Current Medications Diagnostic Test (Pha) (Accucheck) 1 ea 02 XX Last administered on 11/30/16 02: 00; Admin Dose 1 EA; Start 11/19/16 at 02:00 Acetaminophen (Tylenol Tab) 650 mg Q6H PRN PO PAIN AND OR ELEVATED TEMP; Start 11/19/16 at 01:00 Ondansetron HCl (Zofran Inj) 4 mg Q6H PRN IV NAUSEA AND/OR VOMITING Last administered on 11/30/16 23:32; Admin Dose 4 MG; Start 11/19/16 at 01:00 Aspirin (Aspirin) 81 mg DAILY PO Last administered on 12/01/16 08:25; Admin Dose 81 MG; Start 11/19/16 at 09:00 Atorvastatin Calcium (Lipitor) 40 mg HS PO Last administered on 11/30/16 20:40 ; Admin Dose 40 MG; Start 11/19/16 at 21:00 Benazepril HCl (Lotensin) 20 mg DAILY PO Last administered on 11/19/16at 09:03 ; Admin Dose 20 MG; Start 11/19/16 at 09:00; Status Future Hold Famotidine (Pepcid) 20 mg DAILY PO Last administered on 12/01/16 08:25; Admin Dose 20 MG; Start 11/19/16 at 09:00 Morphine Sulfate (morphine) 3 mg Q4H PRN IV PAIN Last administered on 11/30/16 14:46; Admin Dose 3 MG; Start 11/19/16 at 01:30 Metoclopramide HCl (Reglan) 10 mg Q6H PRN IV VOMITTING Last administered on at 05:21; Admin Dose 10 MG; Start 11/19/16 at 05:00 Miscellaneous Information 1 ea NOTE XX ; Start 11/20/16 at 07:30 Glucose (Glutose) 15 gm Q15M PRN PO DECREASED GLUCOSE; Start 11/20/16 at 07:30 Glucose (Glutose) 22.5 gm Q15M PRN PO DECREASED GLUCOSE; Start 11/20/16 at 07: 30 Dextrose (D50w Syringe) 25 ml Q15M PRN IV DECREASED GLUCOSE; Start 11/20/16 at 07:30 Dextrose (D50w Syringe) 50 ml Q15M PRN IV DECREASED GLUCOSE; Start 11/20/16 at 07:30 Glucagon (Glucagen) 1 mg Q15M PRN IM DECREASED GLUCOSE; Start 11/20/16 at 07: 30 Glucose (Glutose) 15 gm Q15M PRN BUCCAL DECREASED GLUCOSE; Start 11/20/16 at 07:30 Carvedilol 3.125 mg 3.125 mg BID PO Last administered on 12/01/16 08:26; Admin Dose 3.125 MG; Start 11/21/16 at 09:00 Levofloxacin/ Dextrose (Levaquin 750 Mg/ D5W 150 ml (Pmx)) 150 ml @ 100 mls/hr Q48H IVPB Last administered on 11/30/16 12:20; Admin Dose 100 MLS/HR; Start 11/26/16 at 12:00 Assessment/Plan Additional Assessment/Plan IMP: 1. moderate / large loculated right pleural effusion exudative in nature 2. Renal insufficiency 3. Anemia questionable of chronic disease 4. Ascites status post paracentesis RECS: 1. Please send pleural fluid for Cell count with diff; LD, TP; GS/Cx 2. Continue to monitor pleurevac output RANDY ELIZALDE MD Dec 01, 2016 15:30
[2016-12-01] MEDS: ATORVASTATIN 40 MG TAB PO SCH (20:33)
[2016-12-02] VITALS (12 sets, daily range): BP systolic 90–105; BP diastolic 52–60; PULSE 63–66; RESP 18–20
[2016-12-02] MEDS: ACCUCHECK XX SCH (02:00)
[2016-12-02] MEDS: ALBUTEROL/IPRATROPIUM (NEB) 3 ML AMP HHN SCH ×5 (02:35→20:14)
[2016-12-02 05:48] LABS: BASOPHILS % 0.1 % (0.0-2.0); EOSINOPHILS % 0.3 % (0.0-7.0); HEMATOCRIT 31.6 % (42.0-52.0); LYMPHOCYTES # 1.1 10^3/ul (0.8-2.9); LYMPHOCYTES % 11.2 % (15.0-51.0); MEAN CORPUSCULAR HEMOGLOBIN 32.1 pg (29.0-33.0); MEAN CORPUSCULAR HGB CONC 34.7 g/dl (32.0-37.0); MEAN CORPUSCULAR VOLUME 92.4 fl (82.0-101.0); MEAN PLATELET VOLUME 9.1 fl (7.4-10.4); MONOCYTES % 10.1 % (0.0-11.0); NEUTROPHIL # 7.8 10^3/ul (1.6-7.5); NEUTROPHILS % 78.3 % (39.0-77.0); PLATELET COUNT 200 10^3/UL (140-440); RED BLOOD COUNT 3.41 10^6/ul (4.70-6.10); RED CELL DISTRIBUTION WIDTH 18.4 % (11.5-14.5)
[2016-12-02 05:56] LABS: POTASSIUM 3.1 mmol/L (3.5-5.1)
[2016-12-02 05:59] LABS: CALCIUM 8.4 mg/dl (8.4-10.2); CREATININE 2.33 mg/dl (0.61-1.24)
[2016-12-02 06:06] LABS: CONDITION 1; LH ANALYZER COMMENTS 1
[2016-12-02 06:14] LABS: MAGNESIUM 1.8 mg/dl (1.7-2.5); PHOSPHORUS 4.5 mg/dl (2.5-4.9)
[2016-12-02] MEDS ORDERED: POTASSIUM CHLORIDE (SR) 20 MEQ TAB PO STA ×2 (06:50→11:26)
[2016-12-02] MEDS: INSULIN ASPART [NOVOLOG] 3 ML PEN SC SCH ×4 (07:34→21:00)
[2016-12-02] MEDS: FAMOTIDINE 20 MG TAB PO SCH (08:48)
[2016-12-02] MEDS: ASPIRIN 81 MG TAB PO SCH (08:48)
--- NOTE | 2016-12-02 09:30 | PN ---
Date/Time of Note Date/Time of Note DATE: 12/02/16 TIME: 09:27 Assessment/Plan VTE Prophylaxis VTE Prophylaxis Intervention: contraindicated VTE Contraindication Reason: blood coagulation disorder Lines/Catheters IV [facility] Urinary Cath still in place: No Assessment/Plan Chief Complaint/Hosp Course Assessment/Plan: 66 M with: 1. Shortness of breath, secondary to large pleural effusion. - s/p thoracentesis - exudative in nature, also with hemoptysis - sequelae of infx vs overt heart failure - appreciate pulm- send out for sputum cultures, continue abx as well - s/p pleurX/pigtail cath placement 2 days ago - monitor drainage - f/u new pleural studies (ordered yesterday) 2. Chest pain - pleuritic in nature - most likely secondary to above - slightly improved - monitor - f/u CV rec's 3. Abdominal distention, from ascites, likely secondary to alcoholic liver disease - s/p paracentesis - monitor acute changes, abd x-ray negative - f/u cytology 4. Cardiomyopathy with systolic dysfunction - EF 35%, Stage III/IV diastolic dysfunction, - strict I/O's, diuresis 5. Chronic kidney disease -Nonoliguric acute kidney injury on top of chronic kidney disease stage IIIB/IV with a baseline creatinine of 1.52 mg/dL. Hepatorenal with cardio renal - renally adjust medications, avoid nephrotoxins - if worsening - possible dialysis - appreciate nephro consult - diamox added - holding lasix and EMMIE (-) per renal rec's, monitor Cr and UO 6. Hyperkalemia - presently stable - if > 5.5 - kayexlate - will give 15 mg po 7. Atrial fibrillation, rate controlled and in sinus - hold anticoagulation - 2/2 to coagulopathy 8. Coagulopathy - hepatitis panel Hep B core antigen + : most likely chronic liver disease - monitor 9. Gastric and colon cancer status post surgery and chemo. 10. Hepatitis B - chronic - standard precautions 11. Alcohol abuse - monitor labs 12. Megaloblastic anemia, most likely secondary to anemia of chronic disease. - nl folate/vitb12 13. GI ppx - protonix 14. DVT ppx - scds dispo - f/u labs, f/u cytology paracentesis Problems: Subjective 24 Hr Interval Summary Free Text/Dictation No acute events overnight, no complaints presently. Exam/Review of Systems Vital Signs Vitals Vital Signs Date Time Temp Pulse Resp B/P Pulse Ox O2 Delivery O2 Flow Rate FiO2 12/02/16 08:11 63 12/02/16 07:36 97.5 20 105/59 98 Room Air 12/02/16 04:37 21 12/01/16 08:00 2.0 Intake and Output 12/01/16 12/01/16 12/02/16 15:00 23:00 07:00 Intake Total 600 ml 400 ml Output Total 842 ml 610 ml Balance -242 ml -210 ml Exam Gen Ana: NAD, AAOx4 HEENT: NC/AT, PERRLA, EOMI NECK: supple, no thyromegaly THORAX: symmetrical, no obvious deformities CV: S1S2, RRR, no M/G/R Lungs: less diminished breath sounds, less scattered rhonchi - right sided drain in place, no leakage, stable Abd: soft, NT/distention, mild fluid wave, +BS, no rebound, no guarding, neg HSM EXT: no edema, no ecchymosis, no clubbing, FROM Neuro: CN II-XII grossly intact, no focal deficits Psych: fair mood and affect Skin: C/D/I Results Result Diagram: 12/02/16 0500 12/02/16 0500 Results 24 hrs Laboratory Tests Test 12/01/16 11:32 12/01/16 17:15 12/01/16 19:58 12/02/16 05:00 Bedside Glucose 114 110 168 Anion Gap 17 H Basophils # 0.0 Basophils % 0.1 Blood Morphology Comment Blood Urea Nitrogen 55 H Calcium Level 8.4 Carbon Dioxide Level 31 Chloride Level 87 L Creatinine 2.33 H Eosinophils # 0.0 Eosinophils % 0.3 Glucose Level 133 # Hematocrit 31.6 L Hemoglobin 11.0 L Lymphocytes # 1.1 Lymphocytes % 11.2 L Magnesium Level 1.8 Mean Corpuscular Hemoglobin 32.1 Mean Corpuscular Hemoglobin Concent 34.7 Mean Corpuscular Volume 92.4 Mean Platelet Volume 9.1 Monocytes # 1.0 H Monocytes % 10.1 Neutrophils # 7.8 H Neutrophils % 78.3 H Nucleated Red Blood Cells # 0.0 Nucleated Red Blood Cells % 0.0 Phosphorus Level 4.5 Platelet Count 200 Potassium Level 3.1 L Red Blood Count 3.41 L Red Cell Distribution Width 18.4 H Sodium Level 132 L White Blood Count 10.0 Test 12/02/16 07:33 Bedside Glucose 133 Medications Medications Current Medications Diagnostic Test (Pha) (Accucheck) 1 ea 02 XX Last administered on 11/30/16 02: 00; Admin Dose 1 EA; Start 11/19/16 at 02:00 Acetaminophen (Tylenol Tab) 650 mg Q6H PRN PO PAIN AND OR ELEVATED TEMP Last administered on 12/01/16 20:32; Admin Dose 650 MG; Start 11/19/16 at 01:00 Ondansetron HCl (Zofran Inj) 4 mg Q6H PRN IV NAUSEA AND/OR VOMITING Last administered on 11/30/16 23:32; Admin Dose 4 MG; Start 11/19/16 at 01:00 Aspirin (Aspirin) 81 mg DAILY PO Last administered on 12/02/16 08:48; Admin Dose 81 MG; Start 11/19/16 at 09:00 Atorvastatin Calcium (Lipitor) 40 mg HS PO Last administered on 12/01/16 20:33 ; Admin Dose 40 MG; Start 11/19/16 at 21:00 Benazepril HCl (Lotensin) 20 mg DAILY PO Last administered on 11/19/16at 09:03 ; Admin Dose 20 MG; Start 11/19/16 at 09:00; Status Future Hold Famotidine (Pepcid) 20 mg DAILY PO Last administered on 12/02/16 08:48; Admin Dose 20 MG; Start 11/19/16 at 09:00 Morphine Sulfate (morphine) 3 mg Q4H PRN IV PAIN Last administered on 11/30/16 14:46; Admin Dose 3 MG; Start 11/19/16 at 01:30 Metoclopramide HCl (Reglan) 10 mg Q6H PRN IV VOMITTING Last administered on at 05:21; Admin Dose 10 MG; Start 11/19/16 at 05:00 Miscellaneous Information 1 ea NOTE XX ; Start 11/20/16 at 07:30 Glucose (Glutose) 15 gm Q15M PRN PO DECREASED GLUCOSE; Start 11/20/16 at 07:30 Glucose (Glutose) 22.5 gm Q15M PRN PO DECREASED GLUCOSE; Start 11/20/16 at 07: 30 Dextrose (D50w Syringe) 25 ml Q15M PRN IV DECREASED GLUCOSE; Start 11/20/16 at 07:30 Dextrose (D50w Syringe) 50 ml Q15M PRN IV DECREASED GLUCOSE; Start 11/20/16 at 07:30 Glucagon (Glucagen) 1 mg Q15M PRN IM DECREASED GLUCOSE; Start 11/20/16 at 07: 30 Glucose (Glutose) 15 gm Q15M PRN BUCCAL DECREASED GLUCOSE; Start 11/20/16 at 07:30 Carvedilol 3.125 mg 3.125 mg BID PO Last administered on 12/02/16 08:49; Admin Dose 3.125 MG; Start 11/21/16 at 09:00 Levofloxacin/ Dextrose (Levaquin 750 Mg/ D5W 150 ml (Pmx)) 150 ml @ 100 mls/hr Q48H IVPB Last administered on 11/30/16 12:20; Admin Dose 100 MLS/HR; Start 11/26/16 at 12:00 ANA MARÍA RAND Dec 02, 2016 09:30
[2016-12-02] MEDS: LEVOFLOXACIN 750MG/D5W (PMX) 150 ML IVPB SCH (11:52)
--- NOTE | 2016-12-02 12:33 | CONS ---
Date/Time of Note Date/Time of Note DATE: 12/02/16 TIME: 12:31 Consult Date/Type/Reason Admit Date/Time Nov 18, 2016 at 20:54 Type of Consultation: neph Subjective SUBJECTIVE: The patient is stable, no acute events overnight. No fevers, chills, nausea, vomiting. Mild shortness of breath. IR placed chest tube. lasix has been held. continues good uo. poc reviewed with dr. ratliff. OBJECTIVE: HEENT: Head is normocephalic. NECK: Supple. HEART: Regular rate. LUNGS: Show diminished breath sounds at the base. ABDOMEN: Soft, nontender to palpation. No rebound or guarding. EXTREMITIES: Negative for clubbing, cyanosis. Positive edema. DERMATOLOGIC: No rashes. MUSCULOSKELETAL: No joint effusions. NEUROLOGIC: No change in exam. ASSESSMENT AND PLAN: 1. Nonoliguric acute kidney injury on top of chronic kidney disease stage IIIB/ IV with previous baseline creatinine of 1.5 mg/dL. Etiology of acute kidney injury secondary to cardiorenal syndrome, hemodynamics. Renal function had been improving on diuretic regimen but now with mild azotemia of unknown significance. repeat labs. avoid nephrotoxins. all meds dosed ok. will hold lasix today. benazepril already held. 2. Hyperkalemia, improved. Continue to monitor. 3. Acute systolic congestive heart failure. The patient is currently decompensated as stated above. Continue current diuretic regimen. The patient was seen by cardiology, pending possible stress test once clinically stable. 4. Anemia of chronic disease. Continue to monitor H and H levels. 5. Mineral bone disorder. Continue to monitor calcium and phosphorus levels. No need for phosphorus binders. 6. Pleural effusion, loculated. The patient is ir sp chest tube placement. Follow up with CT surgery. 7. Acute respiratory failure secondary to CHF, slowly improving. Continue to monitor. Continue medical management. 8. Ascites, likely cardiac in nature. The patient is status post thoracentesis. 9. Atrial fibrillation. Continue medical management. 10. History of gastric and colon carcinoma. Objective Vital Signs Date Time Temp Pulse Resp B/P Pulse Ox O2 Delivery O2 Flow Rate FiO2 12/02/16 12:27 65 12/02/16 12:09 98.6 20 94/56 100 Room Air 12/02/16 09:55 21 12/01/16 08:00 2.0 Intake and Output 12/01/16 12/01/16 12/02/16 15:00 23:00 07:00 Intake Total 600 ml 400 ml Output Total 842 ml 610 ml Balance -242 ml -210 ml Results/Medications Result Diagram: 12/02/16 0500 12/02/16 0500 Results 24 hrs Laboratory Tests Test 12/01/16 17:15 12/01/16 19:58 12/02/16 05:00 12/02/16 07:33 Bedside Glucose 110 168 133 Anion Gap 17 H Basophils # 0.0 Basophils % 0.1 Blood Morphology Comment Blood Urea Nitrogen 55 H Calcium Level 8.4 Carbon Dioxide Level 31 Chloride Level 87 L Creatinine 2.33 H Eosinophils # 0.0 Eosinophils % 0.3 Glucose Level 133 # Hematocrit 31.6 L Hemoglobin 11.0 L Lymphocytes # 1.1 Lymphocytes % 11.2 L Magnesium Level 1.8 Mean Corpuscular Hemoglobin 32.1 Mean Corpuscular Hemoglobin Concent 34.7 Mean Corpuscular Volume 92.4 Mean Platelet Volume 9.1 Monocytes # 1.0 H Monocytes % 10.1 Neutrophils # 7.8 H Neutrophils % 78.3 H Nucleated Red Blood Cells # 0.0 Nucleated Red Blood Cells % 0.0 Phosphorus Level 4.5 Platelet Count 200 Potassium Level 3.1 L Red Blood Count 3.41 L Red Cell Distribution Width 18.4 H Sodium Level 132 L White Blood Count 10.0 Test 12/02/16 11:22 Bedside Glucose 164 Medications Current Medications Diagnostic Test (Pha) (Accucheck) 1 ea 02 XX Last administered on 11/30/16 02: 00; Admin Dose 1 EA; Start 11/19/16 at 02:00 Acetaminophen (Tylenol Tab) 650 mg Q6H PRN PO PAIN AND OR ELEVATED TEMP Last administered on 12/01/16 20:32; Admin Dose 650 MG; Start 11/19/16 at 01:00 Ondansetron HCl (Zofran Inj) 4 mg Q6H PRN IV NAUSEA AND/OR VOMITING Last administered on 11/30/16 23:32; Admin Dose 4 MG; Start 11/19/16 at 01:00 Aspirin (Aspirin) 81 mg DAILY PO Last administered on 12/02/16 08:48; Admin Dose 81 MG; Start 12/26/16 at 09:00 Atorvastatin Calcium (Lipitor) 40 mg HS PO Last administered on 12/01/16 20:33 ; Admin Dose 40 MG; Start 11/19/16 at 21:00 Benazepril HCl (Lotensin) 20 mg DAILY PO Last administered on 11/19/16at 09:03 ; Admin Dose 20 MG; Start 11/19/16 at 09:00; Status Future Hold Famotidine (Pepcid) 20 mg DAILY PO Last administered on 12/02/16 08:48; Admin Dose 20 MG; Start 11/19/16 at 09:00 Morphine Sulfate (morphine) 3 mg Q4H PRN IV PAIN Last administered on 11/30/16 14:46; Admin Dose 3 MG; Start 11/19/16 at 01:30 Metoclopramide HCl (Reglan) 10 mg Q6H PRN IV VOMITTING Last administered on at 05:21; Admin Dose 10 MG; Start 11/19/16 at 05:00 Miscellaneous Information 1 ea NOTE XX ; Start 11/20/16 at 07:30 Glucose (Glutose) 15 gm Q15M PRN PO DECREASED GLUCOSE; Start 11/20/16 at 07:30 Glucose (Glutose) 22.5 gm Q15M PRN PO DECREASED GLUCOSE; Start 11/20/16 at 07: 30 Dextrose (D50w Syringe) 25 ml Q15M PRN IV DECREASED GLUCOSE; Start 11/20/16 at 07:30 Dextrose (D50w Syringe) 50 ml Q15M PRN IV DECREASED GLUCOSE; Start 11/20/16 at 07:30 Glucagon (Glucagen) 1 mg Q15M PRN IM DECREASED GLUCOSE; Start 11/20/16 at 07: 30 Glucose (Glutose) 15 gm Q15M PRN BUCCAL DECREASED GLUCOSE; Start 11/20/16 at 07:30 Carvedilol 3.125 mg 3.125 mg BID PO Last administered on 12/02/16 08:49; Admin Dose 3.125 MG; Start 11/21/16 at 09:00 Levofloxacin/ Dextrose (Levaquin 750 Mg/ D5W 150 ml (Pmx)) 150 ml @ 100 mls/hr Q48H IVPB Last administered on 12/02/16 11:52; Admin Dose 100 MLS/HR; Start 11/26/16 at 12:00 ELIN ORTA MD Dec 02, 2016 12:32
--- NOTE | 2016-12-02 15:25 | PN ---
DATE: ASSESSMENT: 1. Respiratory failure, congestive heart failure. 2. Severe cardiomyopathy. 3. Pleural effusions. 4. Anemia. 5. Paroxysmal atrial fibrillation. SUBJECTIVE: The patient is status post pigtail catheter, which remains in place. Reports feeling b arin today. PHYSICAL EXAMINATION: GENERAL: In no distress. VITAL SIGNS: Temperature 97.5, blood pressure 105/59, oxygen saturation 98%. NECK: No jugular venous distention, right-sided pigtail catheter in place. CARDIAC: Regular rate and rhythm. ABDOMEN: Soft. EXTREMITIES: Reveal no edema. LABORATORY RESULTS: Reviewed. Sodium 132, potassium 3.1, BUN 55, creatinine 2.3. CURRENT MEDICATIONS: 1. Levaquin. 2. Carvedilol. 3. Aspirin. 4. Famotidine. 4. Insulin. We will replace potassium. Hold diuresis given renal insufficiency. Dictated By: ABDON RODRIGUEZ/LANG Conf#: [id number] DID#: [id number]
--- NOTE | 2016-12-02 17:25 | CONS ---
Date/Time of Note Date/Time of Note DATE: 12/02/16 TIME: 17:23 Consult Date/Type/Reason Admit Date/Time Nov 18, 2016 at 20:54 Type of Consultation: pulm Subjective No events. CT output noted Objective Vital Signs Date Time Temp Pulse Resp B/P Pulse Ox O2 Delivery O2 Flow Rate FiO2 12/02/16 16:26 66 20 21 12/02/16 16:00 98.4 104/60 97 Room Air 12/01/16 08:00 2.0 Intake and Output 12/01/16 12/01/16 12/02/16 15:00 23:00 07:00 Intake Total 600 ml 400 ml Output Total 842 ml 610 ml Balance -242 ml -210 ml MELLISSA: Supple. No JVD or lymphadenopathy. CARDIAC EXAM: S1, S2. No added sounds or murmurs. CHEST: Diminished air entry right lung ABDOMEN: Soft, nontender. No guarding or rebound. EXTREMITIES: No cyanosis, clubbing or edema. Results/Medications Result Diagram: 12/02/16 0500 12/02/16 0500 Results 24 hrs Laboratory Tests Test 12/01/16 19:58 12/02/16 05:00 12/02/16 07:33 12/02/16 11:22 Bedside Glucose 168 133 164 Anion Gap 17 H Basophils # 0.0 Basophils % 0.1 Blood Morphology Comment Blood Urea Nitrogen 55 H Calcium Level 8.4 Carbon Dioxide Level 31 Chloride Level 87 L Creatinine 2.33 H Eosinophils # 0.0 Eosinophils % 0.3 Glucose Level 133 # Hematocrit 31.6 L Hemoglobin 11.0 L Lymphocytes # 1.1 Lymphocytes % 11.2 L Magnesium Level 1.8 Mean Corpuscular Hemoglobin 32.1 Mean Corpuscular Hemoglobin Concent 34.7 Mean Corpuscular Volume 92.4 Mean Platelet Volume 9.1 Monocytes # 1.0 H Monocytes % 10.1 Neutrophils # 7.8 H Neutrophils % 78.3 H Nucleated Red Blood Cells # 0.0 Nucleated Red Blood Cells % 0.0 Phosphorus Level 4.5 Platelet Count 200 Potassium Level 3.1 L Red Blood Count 3.41 L Red Cell Distribution Width 18.4 H Sodium Level 132 L White Blood Count 10.0 Medications Current Medications Diagnostic Test (Pha) (Accucheck) 1 ea 02 XX Last administered on 11/30/16t 02: 00; Admin Dose 1 EA; Start 12/26/16 at 02:00 Acetaminophen (Tylenol Tab) 650 mg Q6H PRN PO PAIN AND OR ELEVATED TEMP Last administered on 12/01/16 20:32; Admin Dose 650 MG; Start 11/19/16 at 01:00 Ondansetron HCl (Zofran Inj) 4 mg Q6H PRN IV NAUSEA AND/OR VOMITING Last administered on 11/30/16 23:32; Admin Dose 4 MG; Start 11/19/16 at 01:00 Aspirin (Aspirin) 81 mg DAILY PO Last administered on 12/02/16 08:48; Admin Dose 81 MG; Start 11/19/16 at 09:00 Atorvastatin Calcium (Lipitor) 40 mg HS PO Last administered on 12/01/16 20:33 ; Admin Dose 40 MG; Start 11/19/16 at 21:00 Benazepril HCl (Lotensin) 20 mg DAILY PO Last administered on 11/19/16at 09:03 ; Admin Dose 20 MG; Start 11/19/16 at 09:00; Status Future Hold Famotidine (Pepcid) 20 mg DAILY PO Last administered on 12/02/16 08:48; Admin Dose 20 MG; Start 11/19/16 at 09:00 Morphine Sulfate (morphine) 3 mg Q4H PRN IV PAIN Last administered on 11/30/16 14:46; Admin Dose 3 MG; Start 11/19/16 at 01:30 Metoclopramide HCl (Reglan) 10 mg Q6H PRN IV VOMITTING Last administered on at 05:21; Admin Dose 10 MG; Start 11/19/16 at 05:00 Miscellaneous Information 1 ea NOTE XX ; Start 11/20/16 at 07:30 Glucose (Glutose) 15 gm Q15M PRN PO DECREASED GLUCOSE; Start 11/20/16 at 07:30 Glucose (Glutose) 22.5 gm Q15M PRN PO DECREASED GLUCOSE; Start 11/20/16 at 07: 30 Dextrose (D50w Syringe) 25 ml Q15M PRN IV DECREASED GLUCOSE; Start 11/20/16 at 07:30 Dextrose (D50w Syringe) 50 ml Q15M PRN IV DECREASED GLUCOSE; Start 11/20/16 at 07:30 Glucagon (Glucagen) 1 mg Q15M PRN IM DECREASED GLUCOSE; Start 11/20/16 at 07: 30 Glucose (Glutose) 15 gm Q15M PRN BUCCAL DECREASED GLUCOSE; Start 11/20/16 at 07:30 Carvedilol 3.125 mg 3.125 mg BID PO Last administered on 12/02/16 08:49; Admin Dose 3.125 MG; Start 11/21/16 at 09:00 Levofloxacin/ Dextrose (Levaquin 750 Mg/ D5W 150 ml (Pmx)) 150 ml @ 100 mls/hr Q48H IVPB Last administered on 12/02/16 11:52; Admin Dose 100 MLS/HR; Start 11/26/16 at 12:00 Assessment/Plan Additional Assessment/Plan IMP: 1. moderate / large loculated right pleural effusion exudative in nature 2. Renal insufficiency 3. Anemia questionable of chronic disease 4. Ascites status post paracentesis RECS: 1. Please send pleural fluid for Cell count with diff; LD, TP; GS/Cx 2. Continue to monitor pleurevac output 3. Am CXR RANDY ELIZALDE MD Dec 02, 2016 17:25
[2016-12-02] MEDS: ATORVASTATIN 40 MG TAB PO SCH (21:07)
[2016-12-03] VITALS (13 sets, daily range): BP systolic 93–109; BP diastolic 53–64; PULSE 62–65; RESP 18–20
[2016-12-03] MEDS: ALBUTEROL/IPRATROPIUM (NEB) 3 ML AMP HHN SCH ×6 (01:38→21:00)
[2016-12-03] MEDS: ACCUCHECK XX SCH (02:00)
[2016-12-03 07:23] LABS: BASOPHILS % 0.3 % (0.0-2.0); EOSINOPHILS % 0.4 % (0.0-7.0); HEMATOCRIT 29.5 % (42.0-52.0); HEMOGLOBIN 10.1 g/dl (14.0-18.0); LYMPHOCYTES # 1.4 10^3/ul (0.8-2.9); LYMPHOCYTES % 16.2 % (15.0-51.0); MEAN CORPUSCULAR HEMOGLOBIN 30.5 pg (29.0-33.0); MEAN CORPUSCULAR HGB CONC 34.1 g/dl (32.0-37.0); MEAN CORPUSCULAR VOLUME 89.4 fl (82.0-101.0); MEAN PLATELET VOLUME 9.5 fl (7.4-10.4); MONOCYTE # 0.8 10^3/ul (0.3-0.9); MONOCYTES % 9.6 % (0.0-11.0); NEUTROPHIL # 6.4 10^3/ul (1.6-7.5); NEUTROPHILS % 73.5 % (39.0-77.0); PLATELET COUNT 217 10^3/UL (140-440); RED CELL DISTRIBUTION WIDTH 18.2 % (11.5-14.5); UNCORRECTED WBC 8.7 10^3/ul (4.8-10.8); WHITE BLOOD COUNT 8.7 10^3/ul (4.8-10.8)
[2016-12-03 07:27] LABS: CONDITION 1; LH ANALYZER COMMENTS 1; SUSPECT 1
[2016-12-03 07:46] LABS: POTASSIUM 3.9 mmol/L (3.5-5.1)
[2016-12-03 07:48] LABS: CREATININE 2.31 mg/dl (0.61-1.24)
[2016-12-03 07:49] LABS: CALCIUM 8.2 mg/dl (8.4-10.2)
[2016-12-03] MEDS: INSULIN ASPART [NOVOLOG] 3 ML PEN SC SCH ×4 (07:55→21:00)
[2016-12-03] MEDS: ASPIRIN 81 MG TAB PO SCH (08:32)
[2016-12-03] MEDS: FAMOTIDINE 20 MG TAB PO SCH (08:32)
--- NOTE | 2016-12-03 11:10 | PN ---
DATE: 12/03/2016 SUBJECTIVE: The patient is stable, no acute events overnight. No fevers, chills, nausea, vomiting. OBJECTIVE: VITAL SIGNS: Blood pressure is 95/53, respiratory rate 20, pulse 66, temperature 98.2. I'S and O'S: Have been reviewed. HEENT: Head is normocephalic. NECK: Supple. HEART: Regular rate. LUNGS: Show diminished breath sounds at the base. ABDOMEN: Soft, nontender to palpation without rebound or guarding. EXTREMITIES: Negative for clubbing, cyanosis. No edema. DERMATOLOGIC: No rashes. MUSCULOSKELETAL: No joint effusions. NEUROLOGIC: No change in exam. MEDICATIONS: The patient's medications have been reviewed. LABORATORY DATA: Shows a white count 8.7, hemoglobin 10.1, hematocrit 29.5, platelet count 217. So dium 132, potassium 3.9, chloride 92, BUN 60, creatinine 2.31. IMAGING STUDIES: Patient's imaging studies reviewed. ASSESSMENT AND PLAN: 1. Nonoliguric acute kidney injury on top of chronic kidney disease stage IIIB/IV, with previous ba seline creatinine of 1.5 mg/dL. Etiology of acute kidney injury was initially due to cardiorenal s yndrome, hemodynamics. The patient's renal function improved; however, has declined over the last 4 8 hours, likely due to diuretic therapy inducing volume depletion. The patient's Lasix has been hel d and renal function has stabilized in the last 48 hours. At this point, we will continue to hold d iuretic therapy, continue to hold EMMIE inhibitor. Would defer any fluid challenge at this time. If renal function should further decline, we will get a fluid challenge with albumin. Otherwise, monit or closely. 2. Hyponatremia secondary to acute kidney injury with a component of possible volume depletion. At this point, sodium levels have been stable. We will continue to encourage p.o. intake and monitor sodium levels closely. 3. Anemia of chronic disease. Continue to monitor hemoglobin and hematocrit levels. 4. Mineral bone disorder. We will monitor calcium and phosphorus levels. No need for phosphate bin ders. 5. Hyperkalemia, resolved. 6. Acute systolic, diastolic heart failure. The patient appears euvolemic. Diuretic therapy and A CE inhibitor have been on hold. We will continue to monitor. 7. Pleural effusion. The patient is status post chest tube placement. We will continue to monitor . 8. Acute respiratory failure secondary to CHF, improving. Continue current medical management. 9. Atrial fibrillation, continue current medical management. 10. History of gastric colon CA. Dictated By: ANIL PERALES/LANG Conf#: [id number] DID#: [id number]
--- NOTE | 2016-12-03 11:53 | PN ---
Date/Time of Note Date/Time of Note DATE: 12/03/16 TIME: 11:48 Assessment/Plan VTE Prophylaxis VTE Prophylaxis Intervention: SCD's Lines/Catheters IV [facility] Saline Lock Urinary Cath still in place: No Assessment/Plan Chief Complaint/Hosp Course Assessment and plan: 1. Shortness of breath, secondary to large pleural effusion. - s/p thoracentesis - exudative in nature, also with hemoptysis - sequelae of infx vs overt heart failure - appreciate pulm- send out for sputum cultures, continue abx as well - s/p pleurX/pigtail cath placement 2 days ago - monitor drainage - f/u new pleural studies -Follow-up chest x-ray in a.m. 2. Chest pain - pleuritic in nature - most likely secondary to above - slightly improved - monitor - f/u CV rec's 3. Abdominal distention, from ascites, likely secondary to alcoholic liver disease - s/p paracentesis - monitor acute changes, abd x-ray negative - f/u cytology 4. Cardiomyopathy with systolic dysfunction - EF 35%, Stage III/IV diastolic dysfunction, - strict I/O's, diuresis 5. Chronic kidney disease -Nonoliguric acute kidney injury on top of chronic kidney disease stage IIIB/IV with a baseline creatinine of 1.52 mg/dL. Hepatorenal with cardio renal - renally adjust medications, avoid nephrotoxins - if worsening - possible dialysis - appreciate nephro consult - diamox added - holding lasix and EMMIE (-) per renal rec's, monitor Cr and UO 6. Hyperkalemia - presently stable - if > 5.5 - kayexlate - will give 15 mg po 7. Atrial fibrillation, rate controlled and in sinus - hold anticoagulation - 2/2 to coagulopathy 8. Coagulopathy - hepatitis panel Hep B core antigen + : most likely chronic liver disease - monitor 9. Gastric and colon cancer status post surgery and chemo. 10. Hepatitis B - chronic - standard precautions 11. Alcohol abuse - monitor labs 12. Megaloblastic anemia, most likely secondary to anemia of chronic disease. - nl folate/vitb12 13. GI ppx - protonix 14. DVT ppx - scds dispo - f/u labs, f/u cytology paracentesis Problems: Subjective 24 Hr Interval Summary Free Text/Dictation No acute changes Patient is lying in bed comfortable without acute distress Denies of any chest pain or shortness of breath Chest tube output 60 cc 24 hours Exam/Review of Systems Vital Signs Vitals Vital Signs Date Time Temp Pulse Resp B/P Pulse Ox O2 Delivery O2 Flow Rate FiO2 12/03/16 09:33 84 20 95 21 12/03/16 07:31 98.2 95/53 12/03/16 04:00 Room Air 12/01/16 08:00 2.0 Intake and Output 12/02/16 12/02/16 12/03/16 15:00 23:00 07:00 Intake Total 420 ml 400 ml Output Total 250 ml 200 ml Balance -250 ml 420 ml 200 ml Exam General: The patient is underweight, Not in acute distress. HEENT: Atraumatic, normocephalic. The pupils are equal and round . Neck: Supple with full range of motion. Chest: Normal expansion of the thorax during inspiration, chest tube in place Lungs: Clear to auscultation bilaterally Heart: Normal S1-S2, Regular rhythm and rate. Abdomen: Soft , nontender, minimal distended , bowel sounds are present. Extremities: Normal to inspection, no edema no cyanosis Neurologic: Normal mental status,The patient is awake, alert and oriented . Results Result Diagram: 12/03/1662012/03/16620 Results 24 hrs Laboratory Tests Test 12/02/16 17:09 12/02/16 19:54 12/03/16 06:21 12/03/16 07:43 Bedside Glucose 135 148 Anion Gap 17 H Basophils # 0.0 Basophils % 0.3 Blood Morphology Comment Blood Urea Nitrogen 63 H Calcium Level 8.2 L Carbon Dioxide Level 27 Chloride Level 92 L Creatinine 2.31 H Eosinophils # 0.0 Eosinophils % 0.4 Glucose Level 114 Hematocrit 29.5 L Hemoglobin 10.1 L Lymphocytes # 1.4 Lymphocytes % 16.2 Mean Corpuscular Hemoglobin 30.5 Mean Corpuscular Hemoglobin Concent 34.1 Mean Corpuscular Volume 89.4 Mean Platelet Volume 9.5 Monocytes # 0.8 Monocytes % 9.6 Neutrophils # 6.4 Neutrophils % 73.5 Nucleated Red Blood Cells # 0.0 Nucleated Red Blood Cells % 0.0 Platelet Count 217 Potassium Level 3.9 Red Blood Count 3.30 L Red Cell Distribution Width 18.2 H Sodium Level 132 L White Blood Count 8.7 Lab Scanned Report REFERENCE LAB Test 12/03/16 07:53 Bedside Glucose 123 Medications Medications Current Medications Diagnostic Test (Pha) (Accucheck) 1 ea 02 XX Last administered on 11/30/16 02: 00; Admin Dose 1 EA; Start 11/19/16 at 02:00 Acetaminophen (Tylenol Tab) 650 mg Q6H PRN PO PAIN AND OR ELEVATED TEMP Last administered on 12/01/16 20:32; Admin Dose 650 MG; Start 11/19/16 at 01:00 Ondansetron HCl (Zofran Inj) 4 mg Q6H PRN IV NAUSEA AND/OR VOMITING Last administered on 11/30/16 23:32; Admin Dose 4 MG; Start 11/19/16 at 01:00 Aspirin (Aspirin) 81 mg DAILY PO Last administered on 12/03/16 08:32; Admin Dose 81 MG; Start 11/19/16 at 09:00 Atorvastatin Calcium (Lipitor) 40 mg HS PO Last administered on 12/02/16 21:07 ; Admin Dose 40 MG; Start 11/19/16 at 21:00 Benazepril HCl (Lotensin) 20 mg DAILY PO Last administered on 11/19/16at 09:03 ; Admin Dose 20 MG; Start 11/19/16 at 09:00; Status Future Hold Famotidine (Pepcid) 20 mg DAILY PO Last administered on 12/03/16 08:32; Admin Dose 20 MG; Start 11/19/16 at 09:00 Morphine Sulfate (morphine) 3 mg Q4H PRN IV PAIN Last administered on 11/30/16 14:46; Admin Dose 3 MG; Start 11/19/16 at 01:30 Metoclopramide HCl (Reglan) 10 mg Q6H PRN IV VOMITTING Last administered on at 05:21; Admin Dose 10 MG; Start 11/19/16 at 05:00 Miscellaneous Information 1 ea NOTE XX ; Start 11/20/16 at 07:30 Glucose (Glutose) 15 gm Q15M PRN PO DECREASED GLUCOSE; Start 11/20/16 at 07:30 Glucose (Glutose) 22.5 gm Q15M PRN PO DECREASED GLUCOSE; Start 11/20/16 at 07: 30 Dextrose (D50w Syringe) 25 ml Q15M PRN IV DECREASED GLUCOSE; Start 11/20/16 at 07:30 Dextrose (D50w Syringe) 50 ml Q15M PRN IV DECREASED GLUCOSE; Start 11/20/16 at 07:30 Glucagon (Glucagen) 1 mg Q15M PRN IM DECREASED GLUCOSE; Start 11/20/16 at 07: 30 Glucose (Glutose) 15 gm Q15M PRN BUCCAL DECREASED GLUCOSE; Start 11/20/16 at 07:30 Carvedilol 3.125 mg 3.125 mg BID PO Last administered on 12/02/16 08:49; Admin Dose 3.125 MG; Start 11/21/16 at 09:00 Levofloxacin/ Dextrose (Levaquin 750 Mg/ D5W 150 ml (Pmx)) 150 ml @ 100 mls/hr Q48H IVPB Last administered on 12/02/16 11:52; Admin Dose 100 MLS/HR; Start 11/26/16 at 12:00 ADELITA DINH MD Dec 03, 2016 11:53
--- NOTE | 2016-12-03 13:38 | PN ---
DATE: 12/03/2016 SUBJECTIVE: Chart reviewed. Events noted. Patient currently lying in bed comfortably and does not appear in acute distress. Chest tube drained about 60 mL. PHYSICAL EXAMINATION: VITAL SIGNS: Blood pressure 95/53, pulse 66, respirations 20, temperature 98.2. Currently on room air saturating 96%. HEENT: Pupils are equal and react to light. Anicteric sclerae. NECK: Supple, no JVD noted, no cervical adenopathy, no carotid bruits heard. LUNGS: Decreased breath sounds in the right base. CARDIOVASCULAR: S1, S2 normal. ABDOMEN: Soft, nontender. No organomegaly or masses noted. EXTREMITIES: No clubbing or cyanosis noted. NEUROLOGICAL: Awake. LABORATORY DATA: Sodium 132, potassium 3.9, chloride 92, CO2 27, BUN 63, creatinine 2.31, glucose 1 14. WBC 8.7, hemoglobin 10.1, hematocrit 29.7, platelets 217. IMPRESSION: 1. Loculated right pleural effusion exudative currently on chest tube drainage. 2. Acute on chronic renal failure. 3. Anemia. 4. Ascites status post paracentesis. RECOMMENDATIONS: 1. Continue chest tube drainage. 2. Continue antibiotics. 3. Followup cultures. 4. Followup chest x-ray. Dictated By: ANKITA PICKERING MD, MA/LANG Conf#: [id number] DID#: [id number]
[2016-12-03] MEDS: POLYETHYLENE GLYCOL 17 GM PACKET GTB PRN (15:47)
--- NOTE | 2016-12-03 19:00 | PN ---
DATE: 12/03/2016 CARDIOLOGY FOLLOWUP PROGRESS NOTE SUBJECTIVE: Case was discussed with the staff, discussed with the patient's family at bedside. Rhy thm strip was reviewed. The patient remains in sinus rhythm. His breathing has significantly impro tessa. Denies any chest pain or pressure to me. Has mild tenderness at the site of the chest tube. MEDICATIONS: Reviewed. PHYSICAL EXAMINATION: VITAL SIGNS: Temperature 98.2, heart rate of 64, blood pressure 105/55, respiration rate of 20, sat urating 96%. HEENT: Normocephalic, atraumatic. Pupils are equal. NECK: Status post chest tube. CARDIOVASCULAR: Regular rate and rhythm, systolic murmur. PULMONARY: With mild rhonchi. GASTROINTESTINAL: Soft, nontender. EXTREMITIES: With very trivial lower extremity edema. NEUROLOGIC: Awake and alert. PSYCHIATRIC: Calm, pleasant. IMPRESSION AND PLAN: 1. Congestive heart failure. 2. Severe cardiomyopathy. 3. Renal failure. LABORATORY: WBC of 8.7, hemoglobin 10.1, platelets of 17. Sodium 132, potassium 3.9, BUN 63, creat inine 2.31, glucose 114. ASSESSMENT AND PLAN: 1. Hypoxemic respiratory failure. 2. Congestive heart failure. 3. Severe cardiomyopathy. 4. Pleural effusion, status post chest tube placement. 5. Renal failure. 6. Anemia. RECOMMENDATIONS: To manage as per pulmonary. Antibiotic as per infectious disease will be continue d. Diuresis is on hold now given his increasing renal failure. He does not appear to be in heart f ailure. ARB is on hold due to hypoxemia and renal failure. We will continue to monitor on telemetr y. Dictated By: COLIN MANJARREZ/LANG Conf#: [id number] DID#: [id number]
[2016-12-03] MEDS: ATORVASTATIN 40 MG TAB PO SCH (21:15)
[2016-12-03] MEDS: DOCUSATE SODIUM 100 MG CAP PO SCH (21:15)
[2016-12-04] VITALS (12 sets, daily range): BP systolic 99–109; BP diastolic 54–63; PULSE 60–67; RESP 18–20
[2016-12-04] MEDS: ALBUTEROL/IPRATROPIUM (NEB) 3 ML AMP HHN SCH ×6 (00:40→20:06)
[2016-12-04] MEDS: ACCUCHECK XX SCH (02:00)
[2016-12-04 06:58] LABS: BASOPHILS % 0.4 % (0.0-2.0); EOSINOPHILS % 0.5 % (0.0-7.0); HEMATOCRIT 30.1 % (42.0-52.0); HEMOGLOBIN 10.3 g/dl (14.0-18.0); LYMPHOCYTES # 1.4 10^3/ul (0.8-2.9); LYMPHOCYTES % 20.9 % (15.0-51.0); MEAN CORPUSCULAR HEMOGLOBIN 30.6 pg (29.0-33.0); MEAN CORPUSCULAR HGB CONC 34.2 g/dl (32.0-37.0); MEAN CORPUSCULAR VOLUME 89.5 fl (82.0-101.0); MEAN PLATELET VOLUME 9.4 fl (7.4-10.4); MONOCYTE # 0.8 10^3/ul (0.3-0.9); MONOCYTES % 12.2 % (0.0-11.0); NEUTROPHIL # 4.3 10^3/ul (1.6-7.5); PLATELET COUNT 222 10^3/UL (140-440); RED BLOOD COUNT 3.36 10^6/ul (4.70-6.10); UNCORRECTED WBC 6.6 10^3/ul (4.8-10.8); WHITE BLOOD COUNT 6.6 10^3/ul (4.8-10.8)
[2016-12-04 07:02] LABS: CONDITION 1; LH ANALYZER COMMENTS 1
[2016-12-04 07:33] LABS: POTASSIUM 3.8 mmol/L (3.5-5.1)
[2016-12-04 07:36] LABS: CREATININE 2.42 mg/dl (0.61-1.24)
[2016-12-04 07:38] LABS: MAGNESIUM 2.1 mg/dl (1.7-2.5); PHOSPHORUS 3.5 mg/dl (2.5-4.9)
[2016-12-04] MEDS: INSULIN ASPART [NOVOLOG] 3 ML PEN SC SCH ×4 (07:55→20:36)
[2016-12-04] MEDS: ALBUMIN HUMAN 25% 100 ML IV SCH ×2 (09:42→18:25)
[2016-12-04] MEDS: DOCUSATE SODIUM 100 MG CAP PO SCH ×2 (09:43→20:23)
[2016-12-04] MEDS: FAMOTIDINE 20 MG TAB PO SCH (09:43)
[2016-12-04] MEDS: ASPIRIN 81 MG TAB PO SCH (09:43)
--- NOTE | 2016-12-04 10:45 | PN ---
DATE: 12/04/2016 SUBJECTIVE: The patient is stable, no acute events overnight. No hemoptysis, hematemesis or hemato chezia. OBJECTIVE: VITAL SIGNS: Blood pressure is 99/57, respiratory rate 20, pulse 65, temperature 97.6. I's AND O'S: The patient is 680 in with 450 out. HEENT: Head is normocephalic. NECK: Supple. HEART: Regular rate. LUNGS: Show diminished breath sounds at base. Positive rhonchi. ABDOMEN: Soft, nontender to palpation. No rebound or guarding. EXTREMITIES: Negative for clubbing, cyanosis. No edema. DERMATOLOGIC: No rashes. MUSCULOSKELETAL: No joint effusions. NEUROLOGIC: No change in exam. MEDICATIONS: The patient's medications have been reviewed. LABORATORY DATA: Showed sodium 133, potassium 3.8, chloride 91, BUN 71, creatinine 2.42, calcium 8. 0. White count 6.6, hemoglobin 10.3, hematocrit 38.1, platelet count is 222. ASSESSMENT AND PLAN: 1. Nonoliguric acute kidney injury on top of chronic kidney disease stage IIIB/IV, with previous [facility] creatinine of 1.5 mg/dL. Etiology of original acute kidney injury was secondary to cardioren al syndrome, hemodynamics. The patient's renal function has improved; however, the most recent decl ine in the last 72 hours is likely due to volume depletion from recent diuretic therapy. Plan at th is point is to give the patient a fluid challenge with IV albumin at 25% 100 mL q.8h.. We will cont inue to hold diuretic therapy and continue to hold EMMIE inhibitor. We will monitor renal function cl osely. 2. Hyponatremia secondary to acute kidney injury. Continue to monitor serial sodium levels. We wi ll continue volume repletion as stated above. 3. Anemia of chronic disease. Continue to monitor hemoglobin and hematocrit levels. 4. Mineral bone disorder. Continue to monitor calcium and phosphorus levels. No need for phosphat e binders. 5. Hyperkalemia, resolved. 6. Acute diastolic heart failure. The patient appears euvolemic and diuretic therapy is on hold. We will continue gentle fluid challenge. 7. Left pleural effusion, status post chest tube placement. Continue to monitor. 8. Acute respiratory failure secondary to congestive heart failure, improved. 9. Atrial fibrillation, continue medical management. 10. History of gastric and colon cancer. Dictated By: ANIL PERALES/LANG Conf#: [id number] DID#: [id number]
--- NOTE | 2016-12-04 11:08 | RADRPT ---
PROCEDURE: XR Chest. CLINICAL INDICATION: Shortness of breath. TECHNIQUE: Single frontal view. COMPARISON: 12/01/2016. FINDINGS: The right pigtail chest tube remains in satisfactory position medially posteriorly in the right pleu ral space. There is a very small right pleural effusion, slightly larger than seen previously. The re is no left pleural effusion. There is mild right basilar atelectasis, slightly worse than seen p reviously. The lungs are otherwise clear. The heart size is normal. There is calcification in the aorta consistent with atherosclerosis. There is no pneumothorax. IMPRESSION: 1. Right chest tube in satisfactory position. 2. Slightly worse appearance of the right base and slightly larger right pleural effusion. 3. No pneumothorax. 4. Atherosclerosis. RPTAT: QQ .Adrian Sosa MD, Date Time Electronically viewed and signed by .Adrian Sosa MD, on 12/04/2016 11:08 .R/
--- NOTE | 2016-12-04 12:11 | PN ---
Date/Time of Note Date/Time of Note DATE: 12/04/16 TIME: 12:10 Assessment/Plan VTE Prophylaxis VTE Prophylaxis Intervention: SCD's Lines/Catheters IV [facility]from [facility] Saline Lock Urinary Cath still in place: No Assessment/Plan Chief Complaint/Hosp Course Assessment and plan: 1. Shortness of breath, secondary to large pleural effusion. - s/p thoracentesis - exudative in nature, also with hemoptysis - sequelae of infx vs overt heart failure - appreciate pulm- send out for sputum cultures, continue abx as well - s/p pleurX/pigtail cath placement 2 days ago - monitor drainage - f/u new pleural studies -Follow-up chest x-ray in a.m. 2. Chest pain - pleuritic in nature - most likely secondary to above - slightly improved - monitor - f/u CV rec's 3. Abdominal distention, from ascites, likely secondary to alcoholic liver disease - s/p paracentesis - monitor acute changes, abd x-ray negative - f/u cytology 4. Cardiomyopathy with systolic dysfunction - EF 35%, Stage III/IV diastolic dysfunction, - strict I/O's, diuresis 5. Chronic kidney disease -Nonoliguric acute kidney injury on top of chronic kidney disease stage IIIB/IV with a baseline creatinine of 1.52 mg/dL. Hepatorenal with cardio renal - renally adjust medications, avoid nephrotoxins - if worsening - possible dialysis - appreciate nephro consult - diamox added - holding lasix and EMMIE (-) per renal rec's, monitor Cr and UO 6. Hyperkalemia - presently stable - if > 5.5 - kayexlate - will give 15 mg po 7. Atrial fibrillation, rate controlled and in sinus - hold anticoagulation - 2/2 to coagulopathy 8. Coagulopathy - hepatitis panel Hep B core antigen + : most likely chronic liver disease - monitor 9. Gastric and colon cancer status post surgery and chemo. 10. Hepatitis B - chronic - standard precautions 11. Alcohol abuse - monitor labs 12. Megaloblastic anemia, most likely secondary to anemia of chronic disease. - nl folate/vitb12 13. GI ppx - protonix 14. DVT ppx - scds dispo - f/u labs, f/u cytology paracentesis Problems: Subjective 24 Hr Interval Summary Free Text/Dictation Chest tube continues to drain Patient denies of any chest pain or shortness of breath Does complain of having mild pleuritic pain at the site of the chest tube Tolerating oral intake Exam/Review of Systems Vital Signs Vitals Vital Signs Date Time Temp Pulse Resp B/P Pulse Ox O2 Delivery O2 Flow Rate FiO2 12/04/16 11:43 97.6 67 20 101/54 98 12/04/16 09:26 21 12/03/16 04:00 Room Air 12/01/16 08:00 2.0 Intake and Output 12/03/16 12/03/16 12/04/16 15:00 23:00 07:00 Intake Total 680 ml Output Total 450 ml Balance 230 ml Exam General: The patient is well-developed, Not in acute distress. HEENT: Atraumatic, normocephalic. The pupils are equal and round . Neck: Supple with full range of motion. Chest: Normal expansion of the thorax during inspiration, chest tube in place Lungs: Clear to auscultation bilaterally Heart: Normal S1-S2, Regular rhythm and rate. Abdomen: Soft , nontender, nondistended , bowel sounds are present. Extremities: Normal to inspection, no edema no cyanosis Neurologic: Normal mental status,The patient is awake, alert and oriented . Results Result Diagram: 12/04/16 0548 12/04/16 0548 Results 24 hrs Laboratory Tests Test 12/03/16 17:07 12/03/16 21:14 12/04/16 05:48 12/04/16 08:02 Bedside Glucose 194 90 106 Anion Gap 18 H Basophils # 0.0 Basophils % 0.4 Blood Morphology Comment Blood Urea Nitrogen 71 H Calcium Level 8.0 L Carbon Dioxide Level 28 Chloride Level 91 L Creatinine 2.42 H Eosinophils # 0.0 Eosinophils % 0.5 Glucose Level 98 Hematocrit 30.1 L Hemoglobin 10.3 L Lymphocytes # 1.4 Lymphocytes % 20.9 Magnesium Level 2.1 Mean Corpuscular Hemoglobin 30.6 Mean Corpuscular Hemoglobin Concent 34.2 Mean Corpuscular Volume 89.5 Mean Platelet Volume 9.4 Monocytes # 0.8 Monocytes % 12.2 H Neutrophils # 4.3 Neutrophils % 66.0 Nucleated Red Blood Cells # 0.0 Nucleated Red Blood Cells % 0.0 Phosphorus Level 3.5 Platelet Count 222 Potassium Level 3.8 Red Blood Count 3.36 L Red Cell Distribution Width 18.0 H Sodium Level 133 L White Blood Count 6.6 # Medications Medications Current Medications Diagnostic Test (Pha) (Accucheck) 1 ea 02 XX Last administered on 11/30/16 02: 00; Admin Dose 1 EA; Start 11/19/16 at 02:00 Acetaminophen (Tylenol Tab) 650 mg Q6H PRN PO PAIN AND OR ELEVATED TEMP Last administered on 12/01/16 20:32; Admin Dose 650 MG; Start 11/19/16 at 01:00 Ondansetron HCl (Zofran Inj) 4 mg Q6H PRN IV NAUSEA AND/OR VOMITING Last administered on 11/30/16 23:32; Admin Dose 4 MG; Start 11/19/16 at 01:00 Aspirin (Aspirin) 81 mg DAILY PO Last administered on 12/04/16 09:43; Admin Dose 81 MG; Start 11/19/16 at 09:00 Atorvastatin Calcium (Lipitor) 40 mg HS PO Last administered on 12/03/16 21:15 ; Admin Dose 40 MG; Start 11/19/16 at 21:00 Benazepril HCl (Lotensin) 20 mg DAILY PO Last administered on 11/19/16at 09:03 ; Admin Dose 20 MG; Start 11/19/16 at 09:00; Status Future Hold Famotidine (Pepcid) 20 mg DAILY PO Last administered on 12/04/16 09:43; Admin Dose 20 MG; Start 11/19/16 at 09:00 Morphine Sulfate (morphine) 3 mg Q4H PRN IV PAIN Last administered on 11/30/16 14:46; Admin Dose 3 MG; Start 11/19/16 at 01:30 Metoclopramide HCl (Reglan) 10 mg Q6H PRN IV VOMITTING Last administered on at 05:21; Admin Dose 10 MG; Start 11/19/16 at 05:00 Miscellaneous Information 1 ea NOTE XX ; Start 11/20/16 at 07:30 Glucose (Glutose) 15 gm Q15M PRN PO DECREASED GLUCOSE; Start 11/20/16 at 07:30 Glucose (Glutose) 22.5 gm Q15M PRN PO DECREASED GLUCOSE; Start 11/20/16 at 07: 30 Dextrose (D50w Syringe) 25 ml Q15M PRN IV DECREASED GLUCOSE; Start 11/20/16 at 07:30 Dextrose (D50w Syringe) 50 ml Q15M PRN IV DECREASED GLUCOSE; Start 11/20/16 at 07:30 Glucagon (Glucagen) 1 mg Q15M PRN IM DECREASED GLUCOSE; Start 11/20/16 at 07: 30 Glucose (Glutose) 15 gm Q15M PRN BUCCAL DECREASED GLUCOSE; Start 11/20/16 at 07:30 Carvedilol 3.125 mg 3.125 mg BID PO Last administered on 12/04/16 09:57; Admin Dose 3.125 MG; Start 11/21/16 at 09:00 Levofloxacin/ Dextrose (Levaquin 750 Mg/ D5W 150 ml (Pmx)) 150 ml @ 100 mls/hr Q48H IVPB Last administered on 12/02/16 11:52; Admin Dose 100 MLS/HR; Start 11/26/16 at 12:00 Polyethylene Glycol (Miralax) 17 gm Q48H PRN GTB CONSTIPATION Last administered on 12/03/16 15:47; Admin Dose 17 GM; Start 12/03/16 at 15:00 Docusate Sodium 100 mg 100 mg BID PO Last administered on 12/04/16 09:43; Admin Dose 100 MG; Start 12/03/16 at 21:00 Albumin Human (Albumin Human 25%) 100 ml @ 100 mls/hr Q8H IV Last administered on 12/04/16 09:42; Admin Dose 100 MLS/HR; Start 12/04/16 at 10:00 ; Stop 12/05/16 at 02:59 ADELITA DINH MD Dec 04, 2016 12:11
[2016-12-04] MEDS: LEVOFLOXACIN 750MG/D5W (PMX) 150 ML IVPB SCH (12:41)
--- NOTE | 2016-12-04 13:55 | PN ---
DATE: 12/04/2016 PULMONARY FOLLOWUP SUBJECTIVE: Chart reviewed. Events noted. The patient continues to have chest tube in place which is draining. The patient denies any shortness of breath. Currently on room air, saturating 98%. PHYSICAL EXAMINATION: VITAL SIGNS: Blood pressure 101/54, pulse 67, respirations 20, temperature 97.6. HEENT: Pupils are equal and reactive to light. Anicteric sclerae. NECK: Supple, no JVD noted. No cervical adenopathy noted. No carotid bruits heard. LUNGS: Decreased breath sounds at the right base. CARDIOVASCULAR: S1, S2 normal. ABDOMEN: Soft, nontender. No organomegaly or masses noted. EXTREMITIES: No clubbing, cyanosis, or edema noted. NEUROLOGIC: Awake and alert. LABORATORY DATA: WBC 6.6, hemoglobin 10.3, hematocrit 30.1, platelets 222. Sodium 133, potassium 2 .8, chloride 91, CO2 28, BUN 71, creatinine 2.42, glucose 98. IMAGING: Chest x-ray shows some right pleural effusion, appears to be slightly worse along with atel ectasis. No pneumothorax. Chest tube is in satisfactory position. IMPRESSION: 1. Large loculated right pleural effusion, exudative in nature, likely parapneumonic. Currently un dergoing chest tube drainage. 2. Acute on chronic renal failure. 3. Anemia 4. Ascites status post paracentesis. RECOMMENDATIONS: 1. Continue chest tube drainage. 2. Continue antibiotics. 3. Infectious disease followup. 4. Nephrology recommendations noted. Dictated By: ANKITA PICKERING MD, MA/LANG Conf#: [id number] DID#: [id number]
--- NOTE | 2016-12-04 14:08 | PN ---
DATE: 12/04/2016 CARDIOLOGY FOLLOWUP PROGRESS NOTE SUBJECTIVE: The patient is breathing better. No chest pain or pressure. No palpitation. Discusse d with the staff. Rhythm strip was reviewed. Remains in sinus. Discussed with the family members. MEDICATIONS: Reviewed. PHYSICAL EXAMINATION: VITAL SIGNS: Temperature 97.6, heart rate 67, blood pressure 107/63, respiration rate of 20, satura ting 97%. HEENT: Normocephalic, atraumatic. Pupils are equal. CARDIOVASCULAR: Regular rate and rhythm, systolic murmur. PULMONARY: Minimal rhonchi. GASTROINTESTINAL: Soft, nontender. EXTREMITIES: With trivial lower extremity edema. NEUROLOGIC: Awake and alert. IMAGING: Status post righted chest tube in place. LABORATORY: WBC of 6.6, hemoglobin 10., platelets 222. Sodium 133, potassium 3.8, BUN of 71, creat inine of 2.42, glucose of 98. ASSESSMENT AND PLAN: 1. Hypoxic respiratory failure. 2. Congestive heart failure moderate to severe with ejection fraction of 35%. 3. Pleural effusion, loculated, status post chest tube placement. 4. Renal failure. 5. Anemia. RECOMMENDATIONS: Chest tube management as per pulmonary and CT surgery recommendation. Antibiotic is managed as per ID recommendations. Diuresis is on hold. appears to be stable, slightly mor e elevated. Follow with renal recommendations. Monitor on telemetry. Dictated By: COLIN MANJARREZ/LANG Conf#: [id number] DID#: [id number]
[2016-12-04] MEDS: ATORVASTATIN 40 MG TAB PO SCH (20:23)
[2016-12-05] VITALS (12 sets, daily range): BP systolic 96–107; BP diastolic 58–61; PULSE 56–62; RESP 16–18
[2016-12-05] MEDS: ALBUTEROL/IPRATROPIUM (NEB) 3 ML AMP HHN SCH ×6 (01:36→20:44)
[2016-12-05] MEDS: ACCUCHECK XX SCH (02:00)
[2016-12-05] MEDS: ALBUMIN HUMAN 25% 100 ML IV SCH (02:05)
[2016-12-05 02:33] LABS: ADD UMIC NO; URINE BILIRUBIN (Dip) NEGATIVE (NEGATIVE); URINE BLOOD (Dip) NEGATIVE (NEGATIVE); URINE COLOR LT. YELLOW (YELLOW); URINE GLUCOSE (Dip) NEGATIVE (NEGATIVE); URINE KETONES (Dip) NEGATIVE (NEGATIVE); URINE LEUKOCYTE ESTERASE (Dip) NEGATIVE (NEGATIVE); URINE NITRITE (Dip) NEGATIVE (NEGATIVE); URINE TOTAL PROTEIN (Dip) NEGATIVE (NEGATIVE); URINE UROBILINOGEN (Dip) 2.0 E.U./dL (0.1-1.0)
[2016-12-05 07:13] LABS: BASOPHILS % 0.4 % (0.0-2.0); EOSINOPHILS % 0.6 % (0.0-7.0); HEMATOCRIT 27.9 % (42.0-52.0); HEMOGLOBIN 9.5 g/dl (14.0-18.0); LYMPHOCYTES # 1.1 10^3/ul (0.8-2.9); LYMPHOCYTES % 18.9 % (15.0-51.0); MEAN CORPUSCULAR HEMOGLOBIN 30.6 pg (29.0-33.0); MEAN CORPUSCULAR HGB CONC 33.9 g/dl (32.0-37.0); MEAN CORPUSCULAR VOLUME 90.3 fl (82.0-101.0); MEAN PLATELET VOLUME 8.9 fl (7.4-10.4); MONOCYTE # 0.9 10^3/ul (0.3-0.9); MONOCYTES % 14.7 % (0.0-11.0); NEUTROPHIL # 3.9 10^3/ul (1.6-7.5); NEUTROPHILS % 65.4 % (39.0-77.0); PLATELET COUNT 190 10^3/UL (140-440); RED BLOOD COUNT 3.09 10^6/ul (4.70-6.10); RED CELL DISTRIBUTION WIDTH 18.3 % (11.5-14.5); UNCORRECTED WBC 5.9 10^3/ul (4.8-10.8); WHITE BLOOD COUNT 5.9 10^3/ul (4.8-10.8)
[2016-12-05 07:16] LABS: CONDITION 1; LH ANALYZER COMMENTS 1
[2016-12-05 07:42] LABS: POTASSIUM 4.1 mmol/L (3.5-5.1)
[2016-12-05 07:44] LABS: CREATININE 2.65 mg/dl (0.61-1.24)
[2016-12-05 07:45] LABS: CALCIUM 8.3 mg/dl (8.4-10.2)
[2016-12-05] MEDS: INSULIN ASPART [NOVOLOG] 3 ML PEN SC SCH ×4 (07:55→21:00)
[2016-12-05 08:04] LABS: PHOSPHORUS 3.6 mg/dl (2.5-4.9)
[2016-12-05] MEDS ORDERED: SOD CHLORIDE 0.9% 1,000 ML IV ONE (08:30)
[2016-12-05] MEDS: ASPIRIN 81 MG TAB PO SCH (08:31)
[2016-12-05] MEDS: DOCUSATE SODIUM 100 MG CAP PO SCH ×2 (08:31→22:29)
[2016-12-05] MEDS: FAMOTIDINE 20 MG TAB PO SCH (08:32)
--- NOTE | 2016-12-05 09:58 | PN ---
DATE: 12/05/2016 SUBJECTIVE: The patient is stable, no acute events overnight. No fevers, chills, nausea, vomiting. No shortness of breath. OBJECTIVE: VITAL SIGNS: Blood pressure is 107/61, respirations 16, pulse 63, temperature 98.1. I'S AND O'S: The patient had 1100 in, 970 out. HEENT: Head is normocephalic. NECK: Supple. HEART: Regular rate. LUNGS: Show diminished breath sounds at the base. ABDOMEN: Soft, nontender to palpation without rebound or guarding. EXTREMITIES: Negative for clubbing, cyanosis, no edema. DERMATOLOGIC: No rashes. MUSCULOSKELETAL: No joint effusions. NEUROLOGIC: No change in exam. MEDICATIONS: Reviewed. LABORATORY DATA: Showed sodium 129, potassium 4.1, chloride 89, BUN 75, creatinine 2.65. White cou nt 5.9, hemoglobin 9.5, hematocrit 27.9, platelet count is 190. The patient's urinalysis shows a FE Na less than 1%, otherwise bland urine sediment. ASSESSMENT AND PLAN: 1. Nonoliguric acute kidney injury on top of chronic kidney disease stage IIIB/IV with previous [facility] michelle creatinine of 1.5 mg/dL. Etiology of initial acute kidney injury was secondary to hemodynamic s, cardiorenal syndrome. The patient's renal function, however, has declined over the last several days, likely due to prerenal volume depletion from diuretic therapy. The patient's repeat urinalysi s shows bland sediment with FENa less than 1%, consistent with a prerenal etiology. The patient was given IV albumin challenge yesterday without significant improvement. The plan is to get the patie nt to continue fluid challenge. Will give the patient 1 L of NS at 75 mL an hour and monitor renal function closely. 2. Hyponatremia secondary to acute kidney injury and possibly from prerenal volume depletion. Will continue IV fluids as stated above, limit free water intake. 3. Anemia of chronic disease. Continue to monitor hemoglobin and hematocrit levels. 4. Mineral bone disorder. Continue to monitor calcium and phosphorus levels. No need for phosphat e binders. 5. Acute diastolic heart failure. The patient appears euvolemic. Diuretic therapy is on hold. Th e patient is receiving a gentle fluid challenge as stated above. 6. Left pleural effusion, status post chest tube. Follow up with CT surgeon 7. Acute respiratory failure secondary to congestive heart failure, improving. 8. Atrial fibrillation, continue current medical management. 9. History of gastric and colon carcinoma. Dictated By: ANIL PERALES/LANG Conf#: [id number] DID#: [id number]
--- NOTE | 2016-12-05 11:15 | PN ---
Date/Time of Note Date/Time of Note DATE: 12/05/16 TIME: 11:13 Assessment/Plan VTE Prophylaxis VTE Prophylaxis Intervention: SCD's Lines/Catheters IV Catheter Type (from Nrs): Peripheral IV Urinary Cath still in place: No Assessment/Plan Chief Complaint/Hosp Course Assessment and plan: 1. Shortness of breath, secondary to large pleural effusion. - s/p thoracentesis - exudative in nature, also with hemoptysis - sequelae of infx vs overt heart failure - appreciate pulm- send out for sputum cultures, continue abx as well - s/p pleurX/pigtail cath placement 2 days ago - monitor drainage - f/u new pleural studies 2. Chest pain - pleuritic in nature - most likely secondary to above - slightly improved - monitor - f/u CV rec's 3. Abdominal distention, from ascites, likely secondary to alcoholic liver disease - s/p paracentesis - monitor acute changes, abd x-ray negative - f/u cytology 4. Cardiomyopathy with systolic dysfunction - EF 35%, Stage III/IV diastolic dysfunction, - strict I/O's, diuresis 5. Chronic kidney disease -Nonoliguric acute kidney injury on top of chronic kidney disease stage IIIB/IV with a baseline creatinine of 1.52 mg/dL. Hepatorenal with cardio renal - renally adjust medications, avoid nephrotoxins - if worsening - possible dialysis - appreciate nephro consult - diamox added - holding lasix and EMMIE (-) per renal rec's, monitor Cr and UO 6. Hyperkalemia - presently stable - if > 5.5 - kayexlate - will give 15 mg po 7. Atrial fibrillation, rate controlled and in sinus - hold anticoagulation - 2/2 to coagulopathy 8. Coagulopathy - hepatitis panel Hep B core antigen + : most likely chronic liver disease - monitor 9. Gastric and colon cancer status post surgery and chemo. 10. Hepatitis B - chronic - standard precautions 11. Alcohol abuse - monitor labs 12. Megaloblastic anemia, most likely secondary to anemia of chronic disease. - nl folate/vitb12 13. GI ppx - protonix 14. DVT ppx - scds dispo - f/u labs, f/u cytology paracentesis Problems: Subjective 24 Hr Interval Summary Free Text/Dictation No acute changes Patient denies of any chest pain or shortness of breath Tolerating oral intake Chest tube in place Exam/Review of Systems Vital Signs Vitals Vital Signs Date Time Temp Pulse Resp B/P Pulse Ox O2 Delivery O2 Flow Rate FiO2 12/05/16 08:10 60 12/05/16 07:51 20 98 21 12/05/16 07:49 98.1 107/61 12/03/16 04:00 Room Air 12/01/16 08:00 2.0 Intake and Output 12/04/16 12/04/16 12/05/16 15:00 23:00 07:00 Intake Total 1060 ml 100 ml Output Total 150 ml 520 ml 300 ml Balance -150 ml 540 ml -200 ml Exam General: The patient is cachectic, Not in acute distress. HEENT: Atraumatic, normocephalic. The pupils are equal and round . Neck: Supple with full range of motion. Chest: Normal expansion of the thorax during inspiration, chest tube in place Lungs: Decreased breath sounds bilateral lower lung field , right greater than left Heart: Normal S1-S2, Regular rhythm and rate. Abdomen: Soft , nontender, nondistended , bowel sounds are present. Extremities: Normal to inspection, no edema no cyanosis Neurologic: Normal mental status,The patient is awake, alert and oriented . Results Result Diagram: 12/05/16 0619 12/05/16 0649 Results 24 hrs Laboratory Tests Test 12/04/16 12:30 12/04/16 18:21 12/04/16 20:34 12/05/16 01:41 Bedside Glucose 150 131 186 157 Test 12/05/16 02:00 12/05/16 06:19 12/05/16 06:40 12/05/16 06:49 Urine Bilirubin NEGATIVE Urine Clarity CLEAR Urine Color LT. YELLOW Urine Glucose NEGATIVE Urine Hemoglobin NEGATIVE Urine Ketones NEGATIVE Urine Leukocyte Esterase NEGATIVE Urine Nitrite NEGATIVE Urine Random Creatinine 84.84 Urine Random Sodium < 13 L Urine Specific [place] 1.010 Urine Total Protein Urine Urobilinogen 2.0 E.U./dL H Urine pH 6.0 Basophils # 0.0 Basophils % 0.4 Blood Morphology Comment Eosinophils # 0.0 Eosinophils % 0.6 Hematocrit 27.9 L Hemoglobin 9.5 L Lymphocytes # 1.1 Lymphocytes % 18.9 Mean Corpuscular Hemoglobin 30.6 Mean Corpuscular Hemoglobin Concent 33.9 Mean Corpuscular Volume 90.3 Mean Platelet Volume 8.9 Monocytes # 0.9 Monocytes % 14.7 H Neutrophils # 3.9 Neutrophils % 65.4 Nucleated Red Blood Cells # 0.0 Nucleated Red Blood Cells % 0.0 Platelet Count 190 Red Blood Count 3.09 L Red Cell Distribution Width 18.3 H White Blood Count 5.9 Magnesium Level 2.0 Phosphorus Level 3.6 Anion Gap 17 H Blood Urea Nitrogen 75 H Calcium Level 8.3 L Carbon Dioxide Level 27 Chloride Level 89 L Creatinine 2.65 H Glucose Level 117 Potassium Level 4.1 Sodium Level 129 L Test 12/05/16 07:49 Bedside Glucose 117 Medications Medications Current Medications Diagnostic Test (Pha) (Accucheck) 1 ea 02 XX Last administered on 11/30/16 02: 00; Admin Dose 1 EA; Start 11/19/16 at 02:00 Acetaminophen (Tylenol Tab) 650 mg Q6H PRN PO PAIN AND OR ELEVATED TEMP Last administered on 12/01/16 20:32; Admin Dose 650 MG; Start 11/19/16 at 01:00 Ondansetron HCl (Zofran Inj) 4 mg Q6H PRN IV NAUSEA AND/OR VOMITING Last administered on 11/30/16 23:32; Admin Dose 4 MG; Start 11/19/16 at 01:00 Aspirin (Aspirin) 81 mg DAILY PO Last administered on 12/05/16 08:31; Admin Dose 81 MG; Start 11/19/16 at 09:00 Atorvastatin Calcium (Lipitor) 40 mg HS PO Last administered on 12/04/16 20:23 ; Admin Dose 40 MG; Start 11/19/16 at 21:00 Benazepril HCl (Lotensin) 20 mg DAILY PO Last administered on 11/19/16at 09:03 ; Admin Dose 20 MG; Start 11/19/16 at 09:00; Status Future Hold Famotidine (Pepcid) 20 mg DAILY PO Last administered on 12/05/16 08:32; Admin Dose 20 MG; Start 11/19/16 at 09:00 Morphine Sulfate (morphine) 3 mg Q4H PRN IV PAIN Last administered on 11/30/16 14:46; Admin Dose 3 MG; Start 11/19/16 at 01:30 Metoclopramide HCl (Reglan) 10 mg Q6H PRN IV VOMITTING Last administered on at 05:21; Admin Dose 10 MG; Start 11/19/16 at 05:00 Miscellaneous Information 1 ea NOTE XX ; Start 11/20/16 at 07:30 Glucose (Glutose) 15 gm Q15M PRN PO DECREASED GLUCOSE; Start 11/20/16 at 07:30 Glucose (Glutose) 22.5 gm Q15M PRN PO DECREASED GLUCOSE; Start 11/20/16 at 07: 30 Dextrose (D50w Syringe) 25 ml Q15M PRN IV DECREASED GLUCOSE; Start 11/20/16 at 07:30 Dextrose (D50w Syringe) 50 ml Q15M PRN IV DECREASED GLUCOSE; Start 11/20/16 at 07:30 Glucagon (Glucagen) 1 mg Q15M PRN IM DECREASED GLUCOSE; Start 11/20/16 at 07: 30 Glucose (Glutose) 15 gm Q15M PRN BUCCAL DECREASED GLUCOSE; Start 11/20/16 at 07:30 Carvedilol 3.125 mg 3.125 mg BID PO Last administered on 12/05/16 08:32; Admin Dose 3.125 MG; Start 11/21/16 at 09:00 Levofloxacin/ Dextrose (Levaquin 750 Mg/ D5W 150 ml (Pmx)) 150 ml @ 100 mls/hr Q48H IVPB Last administered on 12/04/16 12:41; Admin Dose 100 MLS/HR; Start at 12:00 Polyethylene Glycol (Miralax) 17 gm Q48H PRN GTB CONSTIPATION Last administered on 12/03/16 15:47; Admin Dose 17 GM; Start 12/03/16 at 15:00 Docusate Sodium 100 mg 100 mg BID PO Last administered on 12/05/16 08:31; Admin Dose 100 MG; Start 12/03/16 at 21:00 Sodium Chloride (NS) 1,000 ml @ 75 mls/hr [id number] ONCE IV Last administered on 12/05/16 08:30; Admin Dose 75 MLS/HR; Start 12/05/16 at 08:30; Stop at 21:49 ADELITA DINH MD Dec 05, 2016 11:15
--- NOTE | 2016-12-05 13:05 | PN ---
DATE: 12/05/2016 CARDIOLOGY FOLLOWUP SUBJECTIVE: Discussed with the staff, discussed with Dr. Savage. The patient remains in sinus rhy thm. Rhythm strip was reviewed, no more episodes of atrial fibrillation noted. No chest pain or pr essure. MEDICATIONS: Reviewed. PHYSICAL EXAMINATION: VITAL SIGNS: Temperature 98, heart rate of 60, blood pressure of 107/61, respiratory rate of 20, sa turating 97%. HEENT: Normocephalic, atraumatic. No acute distress. Pupils are equal. CARDIOVASCULAR: Regular rate and rhythm, systolic murmur. CHEST: Status post chest tube placement on the right side. PULMONARY: With no wheezes, minimal rhonchi on the right side mostly. GASTROINTESTINAL: Soft, nontender. EXTREMITIES: No significant lower extremity edema. NEUROLOGIC: Awake and alert. PSYCHIATRIC: Calm, pleasant. LABORATORY: WBC of 5.9, hemoglobin 9.5, platelets of 190. Sodium 129, potassium 4.1, BUN of 75, cr eatinine 2.65, glucose 117. ASSESSMENT AND PLAN: 1. Congestive heart failure. Currently does not appear to be fluid overloaded anymore and probably dry. 2. Hypoxic respiratory failure, improving now. 3. Loculated pleural effusion, status post chest tube placement. 4. Cardiomyopathy. 5. Renal failure. 6. Anemia. 7. Hyponatremia. RECOMMENDATIONS: Discussed with Dr. Savage. I agree with gentle hydration. Antibiotic as per ID recommendation. Chest tube management as per CT surgery and pulmonary recommendations. Dictated By: COLIN MANJARREZ/LANG Conf#: [id number] DID#: [id number] CC: ANIL SAVAGE DO;*EndCC*
--- NOTE | 2016-12-05 15:18 | CONS ---
Date/Time of Note Date/Time of Note DATE: 12/05/16 TIME: 15:16 Consult Date/Type/Reason Admit Date/Time Nov 18, 2016 at 20:54 Type of Consultation: pulm Subjective Patient remained stable no significant shortness of breath No significant drainage from pigtail catheter over the past 48 hours Objective Vital Signs Date Time Temp Pulse Resp B/P Pulse Ox O2 Delivery O2 Flow Rate FiO2 12/05/16 13:15 98 21 12/05/16 13:15 60 18 12/05/16 11:41 98.0 96/58 12/03/16 04:00 Room Air 12/01/16 08:00 2.0 Intake and Output 12/04/16 12/04/16 12/05/16 15:00 23:00 07:00 Intake Total 1060 ml 100 ml Output Total 150 ml 520 ml 300 ml Balance -150 ml 540 ml -200 ml PHYSICAL EXAMINATION: VITAL SIGNS: As above HEENT: Pupils are equal and reactive to light. Anicteric sclerae. NECK: Supple, no JVD noted. No cervical adenopathy noted. No carotid bruits heard. LUNGS: Decreased breath sounds at the right base. CARDIOVASCULAR: S1, S2 normal. ABDOMEN: Soft, nontender. No organomegaly or masses noted. EXTREMITIES: No clubbing, cyanosis, or edema noted. NEUROLOGIC: Awake and alert. Results/Medications Result Diagram: 12/05/16 0619 12/05/16 0649 Results 24 hrs Laboratory Tests Test 12/04/16 18:21 12/04/16 20:34 12/05/16 01:41 12/05/16 02:00 Bedside Glucose 131 186 157 Urine Bilirubin NEGATIVE Urine Clarity CLEAR Urine Color LT. YELLOW Urine Glucose NEGATIVE Urine Hemoglobin NEGATIVE Urine Ketones NEGATIVE Urine Leukocyte Esterase NEGATIVE Urine Nitrite NEGATIVE Urine Random Creatinine 84.84 Urine Random Sodium < 13 L Urine Specific [place] 1.010 Urine Total Protein Urine Urobilinogen 2.0 E.U./dL H Urine pH 6.0 Test 12/05/16 06:19 12/05/16 06:40 12/05/16 06:49 12/05/16 07:49 Basophils # 0.0 Basophils % 0.4 Blood Morphology Comment Eosinophils # 0.0 Eosinophils % 0.6 Hematocrit 27.9 L Hemoglobin 9.5 L Lymphocytes # 1.1 Lymphocytes % 18.9 Mean Corpuscular Hemoglobin 30.6 Mean Corpuscular Hemoglobin Concent 33.9 Mean Corpuscular Volume 90.3 Mean Platelet Volume 8.9 Monocytes # 0.9 Monocytes % 14.7 H Neutrophils # 3.9 Neutrophils % 65.4 Nucleated Red Blood Cells # 0.0 Nucleated Red Blood Cells % 0.0 Platelet Count 190 Red Blood Count 3.09 L Red Cell Distribution Width 18.3 H White Blood Count 5.9 Magnesium Level 2.0 Phosphorus Level 3.6 Anion Gap 17 H Blood Urea Nitrogen 75 H Calcium Level 8.3 L Carbon Dioxide Level 27 Chloride Level 89 L Creatinine 2.65 H Glucose Level 117 Potassium Level 4.1 Sodium Level 129 L Bedside Glucose 117 Test 12/05/16 11:33 Bedside Glucose 180 Medications Current Medications Diagnostic Test (Pha) (Accucheck) 1 ea 02 XX Last administered on 11/30/16 02: 00; Admin Dose 1 EA; Start 11/19/16 at 02:00 Acetaminophen (Tylenol Tab) 650 mg Q6H PRN PO PAIN AND OR ELEVATED TEMP Last administered on 12/01/16 20:32; Admin Dose 650 MG; Start 11/19/16 at 01:00 Ondansetron HCl (Zofran Inj) 4 mg Q6H PRN IV NAUSEA AND/OR VOMITING Last administered on 11/30/16 23:32; Admin Dose 4 MG; Start 11/19/16 at 01:00 Aspirin (Aspirin) 81 mg DAILY PO Last administered on 12/05/16 08:31; Admin Dose 81 MG; Start 11/19/16 at 09:00 Atorvastatin Calcium (Lipitor) 40 mg HS PO Last administered on 12/04/16 20:23 ; Admin Dose 40 MG; Start 11/19/16 at 21:00 Benazepril HCl (Lotensin) 20 mg DAILY PO Last administered on 11/19/16at 09:03 ; Admin Dose 20 MG; Start 11/19/16 at 09:00; Status Future Hold Famotidine (Pepcid) 20 mg DAILY PO Last administered on 12/05/16 08:32; Admin Dose 20 MG; Start 11/19/16 at 09:00 Morphine Sulfate (morphine) 3 mg Q4H PRN IV PAIN Last administered on 11/30/16 14:46; Admin Dose 3 MG; Start 11/19/16 at 01:30 Metoclopramide HCl (Reglan) 10 mg Q6H PRN IV VOMITTING Last administered on at 05:21; Admin Dose 10 MG; Start 11/19/16 at 05:00 Miscellaneous Information 1 ea NOTE XX ; Start 11/20/16 at 07:30 Glucose (Glutose) 15 gm Q15M PRN PO DECREASED GLUCOSE; Start 11/20/16 at 07:30 Glucose (Glutose) 22.5 gm Q15M PRN PO DECREASED GLUCOSE; Start 11/20/16 at 07: 30 Dextrose (D50w Syringe) 25 ml Q15M PRN IV DECREASED GLUCOSE; Start 11/20/16 at 07:30 Dextrose (D50w Syringe) 50 ml Q15M PRN IV DECREASED GLUCOSE; Start 11/20/16 at 07:30 Glucagon (Glucagen) 1 mg Q15M PRN IM DECREASED GLUCOSE; Start 11/20/16 at 07: 30 Glucose (Glutose) 15 gm Q15M PRN BUCCAL DECREASED GLUCOSE; Start 11/20/16 at 07:30 Carvedilol 3.125 mg 3.125 mg BID PO Last administered on 12/05/16 08:32; Admin Dose 3.125 MG; Start 11/21/16 at 09:00 Levofloxacin/ Dextrose (Levaquin 750 Mg/ D5W 150 ml (Pmx)) 150 ml @ 100 mls/hr Q48H IVPB Last administered on 12/04/16 12:41; Admin Dose 100 MLS/HR; Start at 12:00 Polyethylene Glycol (Miralax) 17 gm Q48H PRN GTB CONSTIPATION Last administered on 12/03/16 15:47; Admin Dose 17 GM; Start 12/03/16 at 15:00 Docusate Sodium 100 mg 100 mg BID PO Last administered on 12/05/16 08:31; Admin Dose 100 MG; Start 12/03/16 at 21:00 Sodium Chloride (NS) 1,000 ml @ 75 mls/hr [id number] ONCE IV Last administered on 12/05/16 08:30; Admin Dose 75 MLS/HR; Start 12/05/16 at 08:30; Stop at 21:49 Assessment/Plan Chief Complaint/Hosp Course IMPRESSION: 1. Large loculated right pleural effusion, exudative in nature, likely parapneumonic. Currently undergoing chest tube drainage. No more significant drainage chest x-ray looks significantly improved. 2. Acute on chronic renal failure. 3. Anemia 4. Ascites status post paracentesis. RECOMMENDATIONS: 1. DC pigtail catheter 2. De-escalate antibiotics 3. Infectious disease followup. 4. Nephrology recommendations noted. Will need SNF placement. Problems: JACQUELIN MANUEL MD, [facility] Dec 05, 2016 15:18
--- NOTE | 2016-12-05 17:19 | RADRPT ---
PROCEDURE: Fluoroscopic guided catheter removal. CLINICAL INDICATION: Right chest to no longer required. TECHNIQUE: Prior to the procedure, informed consent was obtained. Risks including bleeding and inf ection, were explained to the patient. The patient understood and was willing to proceed. A procedur al pause was performed. The patient's name, date of , and procedure to be performed were [facility] ed. The skin sutures were removed. The existing drainage catheter in the right chest was cut and remov ed with fluoroscopic guidance. A postprocedure image was obtained. A total of 0.1 minutes of fluoroscopy time was used. COMPARISON: Images from right chest tube placement dated 11/30/2016. Chest x-ray dated 12/04/2016 . FINDINGS: The initial image demonstrates the right chest tube in position within the right hemithorax. The po stprocedure image demonstrates complete removal of the catheter. IMPRESSION: 1. Fluoroscopic guided removal of right chest catheter. RPTAT: QQ .Adrian Sosa MD, MD Date Time Electronically viewed and signed by .Adrian Sosa MD, on 12/05/2016 17:19 .R/
[2016-12-05] MEDS: ATORVASTATIN 40 MG TAB PO SCH (22:30)
[2016-12-05] MEDS: POLYETHYLENE GLYCOL 17 GM PACKET GTB PRN (22:31)
[2016-12-06] VITALS (13 sets, daily range): BP systolic 98–112; BP diastolic 62–69; PULSE 58–62; RESP 16–65
[2016-12-06] MEDS: ALBUTEROL/IPRATROPIUM (NEB) 3 ML AMP HHN SCH ×6 (01:43→20:41)
[2016-12-06] MEDS: ACCUCHECK XX SCH (01:54)
[2016-12-06 07:34] LABS: BASOPHILS % 0.5 % (0.0-2.0); EOSINOPHILS % 0.5 % (0.0-7.0); HEMATOCRIT 26.5 % (42.0-52.0); HEMOGLOBIN 9.3 g/dl (14.0-18.0); LYMPHOCYTES # 1.3 10^3/ul (0.8-2.9); LYMPHOCYTES % 21.9 % (15.0-51.0); MEAN CORPUSCULAR HEMOGLOBIN 33.6 pg (29.0-33.0); MEAN PLATELET VOLUME 9.4 fl (7.4-10.4); MONOCYTE # 0.8 10^3/ul (0.3-0.9); MONOCYTES % 13.6 % (0.0-11.0); NEUTROPHIL # 3.7 10^3/ul (1.6-7.5); NEUTROPHILS % 63.5 % (39.0-77.0); PLATELET COUNT 180 10^3/UL (140-440); RED BLOOD COUNT 2.76 10^6/ul (4.70-6.10); RED CELL DISTRIBUTION WIDTH 18.7 % (11.5-14.5); UNCORRECTED WBC 5.8 10^3/ul (4.8-10.8); WHITE BLOOD COUNT 5.8 10^3/ul (4.8-10.8)
[2016-12-06] MEDS: INSULIN ASPART [NOVOLOG] 3 ML PEN SC SCH ×4 (07:36→21:00)
[2016-12-06 07:43] LABS: CONDITION 1; LH ANALYZER COMMENTS 1
[2016-12-06 07:50] LABS: POTASSIUM 4.1 mmol/L (3.5-5.1)
[2016-12-06 07:53] LABS: CREATININE 2.98 mg/dl (0.61-1.24); PHOSPHORUS 3.8 mg/dl (2.5-4.9)
[2016-12-06 07:54] LABS: CALCIUM 7.9 mg/dl (8.4-10.2)
[2016-12-06] MEDS: ASPIRIN 81 MG TAB PO SCH (08:37)
[2016-12-06] MEDS: DOCUSATE SODIUM 100 MG CAP PO SCH ×2 (08:38→21:30)
[2016-12-06] MEDS: FAMOTIDINE 20 MG TAB PO SCH (08:38)
[2016-12-06] MEDS: SOD CHLORIDE 0.9% 1,000 ML IV SCH ×2 (10:19→21:46)
--- NOTE | 2016-12-06 10:33 | PN ---
DATE: 12/06/2016 SUBJECTIVE: The patient had chest tube removed yesterday without any complications. The patient co ntinues to have poor appetite. No other acute events noted. No hemoptysis, hematemesis or hematoch ezia. OBJECTIVE: VITAL SIGNS: Blood pressure is 109/64, respirations 65, pulse 65, temperature 98.4. I's AND O'S: The patient had in 750 in with 650 out. HEENT: Head is normocephalic. NECK: Supple. HEART: Regular rate. LUNGS: Show diminished breath sounds at the base. ABDOMEN: Soft, nontender to palpation without rebound or guarding. EXTREMITIES: Negative for clubbing, cyanosis, no edema. DERMATOLOGIC: No rashes. MUSCULOSKELETAL: No joint effusions. NEUROLOGIC: No change in exam. MEDICATIONS: The patient's medications have been reviewed. LABORATORY DATA: Showed sodium 129, potassium 4.1, chloride 93, BUN 84, creatinine 2.98. White cou nt is 5.8, hemoglobin 9.3, hematocrit 26.5, platelet count of 180. ASSESSMENT AND PLAN: 1. Nonoliguric acute kidney injury on top of chronic kidney disease stage IIIB/IV, with previous ba seline creatinine around 1.5 mg/dL. The etiology of acute kidney injury was initially felt to be se condary to cardiorenal syndrome. The patient's renal function stabilized and improved; however, has declined over the last several days due to prerenal volume depletion. The patient is currently on IV fluids and diuretic therapy has been held. We will continue current rate of IV fluids and monito r renal function closely. 2. Hypernatremia, likely secondary to acute kidney injury, volume depletion. Continue IV fluids as stated above. Continue to limit free water intake. 3. Anemia. Continue to monitor hemoglobin and hematocrit levels. 4. Mineral bone disorder. Continue to monitor calcium and post. No need for phosphate binders. 5. Acute diastolic heart failure. The patient appears euvolemic to hypovolemic. At this point, th e patient is on a fluid challenge. We will continue. Continue to hold diuretic therapy. 6. Left pleural effusion, status post chest tube placement and removal. 7. Acute respiratory failure, secondary to congestive heart failure, resolved. 8. Atrial fibrillation, currently rate controlled. Continue to monitor. 9. History of gastric and colon carcinoma. Dictated By: ANIL CONNOR DO NR/NTS Conf#: [id number] DID#: [id number]
--- NOTE | 2016-12-06 10:57 | RADRPT ---
PROCEDURE: XR Chest 1 View. CLINICAL INDICATION: Shortness of breath, pleural effusion TECHNIQUE: AP view of the chest were obtained. COMPARISON: December 04, 2016 FINDINGS: The heart size is within normal limits. Calcified atherosclerosis is noted in the aorta. Right lowe r lobe infiltrates combined small pleural effusion are stable. Mild interstitial prominence in both lungs is unchanged. Atelectasis is seen at the left lung base. Osseous structures are intact. IMPRESSION: Calcified atherosclerosis in the aorta. Stable right lower lobe infiltrates combined small pleural effusion. Stable mild interstitial prominence in both lungs. Atelectasis at the left lung base. Interval right pleural drain removal. RPTAT: AA .Mitchell Welch MD, Date Time Electronically viewed and signed by .Mitchell Welch MD, MD on 12/06/2016 10:57 .P/
--- NOTE | 2016-12-06 11:29 | PN ---
Date/Time of Note Date/Time of Note DATE: 12/06/16 TIME: 11:27 Assessment/Plan VTE Prophylaxis VTE Prophylaxis Intervention: SCD's Lines/Catheters IV Catheter Type (from Nrs): Peripheral IV Urinary Cath still in place: No Assessment/Plan Chief Complaint/Hosp Course Assessment and plan: 1. Shortness of breath, secondary to large pleural effusion. - s/p thoracentesis - exudative in nature, also with hemoptysis - sequelae of infx vs overt heart failure - appreciate pulm- send out for sputum cultures, continue abx as well - s/p pleurX/pigtail cath placement , removed on 12/05/2016 -Follow-up pulmonology recommendations 2. Chest pain - pleuritic in nature - most likely secondary to above - slightly improved - monitor - f/u CV rec's 3. Abdominal distention, from ascites, likely secondary to alcoholic liver disease - s/p paracentesis - monitor acute changes, abd x-ray negative - f/u cytology 4. Cardiomyopathy with systolic dysfunction - EF 35%, Stage III/IV diastolic dysfunction, - strict I/O's, diuresis 5. Chronic kidney disease -Nonoliguric acute kidney injury on top of chronic kidney disease stage IIIB/IV with a baseline creatinine of 1.52 mg/dL. Hepatorenal with cardio renal - renally adjust medications, avoid nephrotoxins - if worsening - possible dialysis - appreciate nephro consult - diamox added - holding lasix and EMMIE (-) per renal rec's, monitor Cr and UO 6. Hyperkalemia - presently stable - if > 5.5 - kayexlate - will give 15 mg po 7. Atrial fibrillation, rate controlled and in sinus - hold anticoagulation - 2/2 to coagulopathy 8. Coagulopathy - hepatitis panel Hep B core antigen + : most likely chronic liver disease - monitor 9. Gastric and colon cancer status post surgery and chemo. 10. Hepatitis B - chronic - standard precautions 11. Alcohol abuse - monitor labs 12. Megaloblastic anemia, most likely secondary to anemia of chronic disease. - nl folate/vitb12 13. GI ppx - protonix 14. DVT ppx - scds We will continue monitor patient closely for recommendation management treatment as clinical course Plan to transfer to retirement facility tomorrow 12/07/2016 Problems: Subjective 24 Hr Interval Summary Free Text/Dictation No acute changes Patient denies of any chest pain or shortness of breath Able to ambulate with minimal discomfort Chest tube was removed by interventional radiologist Exam/Review of Systems Vital Signs Vitals Vital Signs Date Time Temp Pulse Resp B/P Pulse Ox O2 Delivery O2 Flow Rate FiO2 12/06/16 08:29 62 12/06/16 08:27 97 21 12/06/16 08:27 20 12/06/16 07:45 98.4 109/64 12/03/16 04:00 Room Air Intake and Output 12/05/16 12/05/16 12/06/16 15:00 23:00 07:00 Intake Total 400 ml 350 ml Output Total 300 ml 350 ml Balance 100 ml 0 ml Exam General: The patient is well-developed, Not in acute distress. HEENT: Atraumatic, normocephalic. The pupils are equal and round . Neck: Supple with full range of motion. Chest: Normal expansion of the thorax during inspiration Lungs: Minimal crackles left lower lung field, otherwise clear to auscultation bilaterally Heart: Normal S1-S2, Regular rhythm and rate. Abdomen: Soft , nontender, nondistended , bowel sounds are present. Extremities: Normal to inspection, no edema no cyanosis Neurologic: Normal mental status,The patient is awake, alert and oriented . Results Result Diagram: 12/06/1663712/06/16 0638 Results 24 hrs Laboratory Tests Test 12/05/16 11:33 12/05/16 17:08 12/05/16 21:09 12/06/16 06:38 Bedside Glucose 180 147 140 Anion Gap 18 H Basophils # 0.0 Basophils % 0.5 Blood Morphology Comment Blood Urea Nitrogen 84 H Calcium Level 7.9 L Carbon Dioxide Level 22 Chloride Level 93 L Creatinine 2.98 H Eosinophils # 0.0 Eosinophils % 0.5 Glucose Level 96 Hematocrit 26.5 L Hemoglobin 9.3 L Lymphocytes # 1.3 Lymphocytes % 21.9 Magnesium Level 2.0 Mean Corpuscular Hemoglobin 33.6 H Mean Corpuscular Hemoglobin Concent 35.0 Mean Corpuscular Volume 96.0 Mean Platelet Volume 9.4 Monocytes # 0.8 Monocytes % 13.6 H Neutrophils # 3.7 Neutrophils % 63.5 Nucleated Red Blood Cells # 0.0 Nucleated Red Blood Cells % 0.0 Phosphorus Level 3.8 Platelet Count 180 Potassium Level 4.1 Red Blood Count 2.76 L Red Cell Distribution Width 18.7 H Sodium Level 129 L White Blood Count 5.8 Test 12/06/16 07:35 Bedside Glucose 118 Medications Medications Current Medications Diagnostic Test (Pha) (Accucheck) 1 ea 02 XX Last administered on 11/30/16 02: 00; Admin Dose 1 EA; Start 11/19/16 at 02:00 Acetaminophen (Tylenol Tab) 650 mg Q6H PRN PO PAIN AND OR ELEVATED TEMP Last administered on 12/01/16 20:32; Admin Dose 650 MG; Start 11/19/16 at 01:00 Ondansetron HCl (Zofran Inj) 4 mg Q6H PRN IV NAUSEA AND/OR VOMITING Last administered on 11/30/16 23:32; Admin Dose 4 MG; Start 11/19/16 at 01:00 Aspirin (Aspirin) 81 mg DAILY PO Last administered on 12/06/16 08:37; Admin Dose 81 MG; Start 11/19/16 at 09:00 Atorvastatin Calcium (Lipitor) 40 mg HS PO Last administered on 12/05/16 22:30 ; Admin Dose 40 MG; Start 11/19/16 at 21:00 Benazepril HCl (Lotensin) 20 mg DAILY PO Last administered on 11/19/16at 09:03 ; Admin Dose 20 MG; Start 11/19/16 at 09:00; Status Future Hold Famotidine (Pepcid) 20 mg DAILY PO Last administered on 12/06/16 08:38; Admin Dose 20 MG; Start 11/19/16 at 09:00 Morphine Sulfate (morphine) 3 mg Q4H PRN IV PAIN Last administered on 11/30/16 14:46; Admin Dose 3 MG; Start 11/19/16 at 01:30 Metoclopramide HCl (Reglan) 10 mg Q6H PRN IV VOMITTING Last administered on at 05:21; Admin Dose 10 MG; Start 11/19/16 at 05:00 Miscellaneous Information 1 ea NOTE XX ; Start 11/20/16 at 07:30 Glucose (Glutose) 15 gm Q15M PRN PO DECREASED GLUCOSE; Start 11/20/16 at 07:30 Glucose (Glutose) 22.5 gm Q15M PRN PO DECREASED GLUCOSE; Start 11/20/16 at 07: 30 Dextrose (D50w Syringe) 25 ml Q15M PRN IV DECREASED GLUCOSE; Start 11/20/16 at 07:30 Dextrose (D50w Syringe) 50 ml Q15M PRN IV DECREASED GLUCOSE; Start 11/20/16 at 07:30 Glucagon (Glucagen) 1 mg Q15M PRN IM DECREASED GLUCOSE; Start 11/20/16 at 07: 30 Glucose (Glutose) 15 gm Q15M PRN BUCCAL DECREASED GLUCOSE; Start 11/20/16 at 07:30 Carvedilol 3.125 mg 3.125 mg BID PO Last administered on 12/06/16 08:39; Admin Dose 3.125 MG; Start 11/21/16 at 09:00 Levofloxacin/ Dextrose (Levaquin 750 Mg/ D5W 150 ml (Pmx)) 150 ml @ 100 mls/hr Q48H IVPB Last administered on 12/04/16 12:41; Admin Dose 100 MLS/HR; Start at 12:00 Polyethylene Glycol (Miralax) 17 gm Q48H PRN GTB CONSTIPATION Last administered on 12/05/16 22:31; Admin Dose 17 GM; Start 12/03/16 at 15:00 Docusate Sodium 100 mg 100 mg BID PO Last administered on 12/06/16 08:38; Admin Dose 100 MG; Start 12/03/16 at 21:00 Sodium Chloride (NS) 1,000 ml @ 75 mls/hr [id number] IV Last administered on 12/06 10:19; Admin Dose 75 MLS/HR; Start 12/06/16 at 09:00 ADELITA DINH MD Dec 06, 2016 11:29
--- NOTE | 2016-12-06 11:41 | CONS ---
Date/Time of Note Date/Time of Note DATE: 12/06/16 TIME: 11:40 Consult Date/Type/Reason Admit Date/Time Nov 18, 2016 at 20:54 Type of Consultation: pulm Subjective Patient stable no new events chest drain removed no Shortness of breath Objective Vital Signs Date Time Temp Pulse Resp B/P Pulse Ox O2 Delivery O2 Flow Rate FiO2 12/06/16 08:29 62 12/06/16 08:27 97 21 12/06/16 08:27 20 12/06/16 07:45 98.4 109/64 12/03/16 04:00 Room Air Intake and Output 12/05/16 12/05/16 12/06/16 14:59 22:59 06:59 Intake Total 400 ml 350 ml Output Total 300 ml 350 ml Balance 100 ml 0 ml PHYSICAL EXAMINATION: VITAL SIGNS: As above HEENT: Pupils are equal and reactive to light. Anicteric sclerae. NECK: Supple, no JVD noted. No cervical adenopathy noted. No carotid bruits heard. LUNGS: Decreased breath sounds at the right base. CARDIOVASCULAR: S1, S2 normal. ABDOMEN: Soft, nontender. No organomegaly or masses noted. EXTREMITIES: No clubbing, cyanosis, or edema noted. NEUROLOGIC: Awake and alert. Results/Medications Result Diagram: 12/06/1638 12/06/16 0638 Results 24 hrs Laboratory Tests Test 12/05/16 17:08 12/05/16 21:09 12/06/16 06:38 12/06/16 07:35 Bedside Glucose 147 140 118 Anion Gap 18 H Basophils # 0.0 Basophils % 0.5 Blood Morphology Comment Blood Urea Nitrogen 84 H Calcium Level 7.9 L Carbon Dioxide Level 22 Chloride Level 93 L Creatinine 2.98 H Eosinophils # 0.0 Eosinophils % 0.5 Glucose Level 96 Hematocrit 26.5 L Hemoglobin 9.3 L Lymphocytes # 1.3 Lymphocytes % 21.9 Magnesium Level 2.0 Mean Corpuscular Hemoglobin 33.6 H Mean Corpuscular Hemoglobin Concent 35.0 Mean Corpuscular Volume 96.0 Mean Platelet Volume 9.4 Monocytes # 0.8 Monocytes % 13.6 H Neutrophils # 3.7 Neutrophils % 63.5 Nucleated Red Blood Cells # 0.0 Nucleated Red Blood Cells % 0.0 Phosphorus Level 3.8 Platelet Count 180 Potassium Level 4.1 Red Blood Count 2.76 L Red Cell Distribution Width 18.7 H Sodium Level 129 L White Blood Count 5.8 Medications Current Medications Diagnostic Test (Pha) (Accucheck) 1 ea 02 XX Last administered on 11/30/16 02: 00; Admin Dose 1 EA; Start 11/19/16 at 02:00 Acetaminophen (Tylenol Tab) 650 mg Q6H PRN PO PAIN AND OR ELEVATED TEMP Last administered on 12/01/16 20:32; Admin Dose 650 MG; Start 11/19/16 at 01:00 Ondansetron HCl (Zofran Inj) 4 mg Q6H PRN IV NAUSEA AND/OR VOMITING Last administered on 11/30/16 23:32; Admin Dose 4 MG; Start 11/19/16 at 01:00 Aspirin (Aspirin) 81 mg DAILY PO Last administered on 12/06/16 08:37; Admin Dose 81 MG; Start 11/19/16 at 09:00 Atorvastatin Calcium (Lipitor) 40 mg HS PO Last administered on 12/05/16 22:30 ; Admin Dose 40 MG; Start 11/19/16 at 21:00 Benazepril HCl (Lotensin) 20 mg DAILY PO Last administered on 11/19/16at 09:03 ; Admin Dose 20 MG; Start 11/19/16 at 09:00; Status Future Hold Famotidine (Pepcid) 20 mg DAILY PO Last administered on 12/06/16 08:38; Admin Dose 20 MG; Start 11/19/16 at 09:00 Morphine Sulfate (morphine) 3 mg Q4H PRN IV PAIN Last administered on 11/30/16 14:46; Admin Dose 3 MG; Start 11/19/16 at 01:30 Metoclopramide HCl (Reglan) 10 mg Q6H PRN IV VOMITTING Last administered on at 05:21; Admin Dose 10 MG; Start 11/19/16 at 05:00 Miscellaneous Information 1 ea NOTE XX ; Start 11/20/16 at 07:30 Glucose (Glutose) 15 gm Q15M PRN PO DECREASED GLUCOSE; Start 11/20/16 at 07:30 Glucose (Glutose) 22.5 gm Q15M PRN PO DECREASED GLUCOSE; Start 11/20/16 at 07: 30 Dextrose (D50w Syringe) 25 ml Q15M PRN IV DECREASED GLUCOSE; Start 11/20/16 at 07:30 Dextrose (D50w Syringe) 50 ml Q15M PRN IV DECREASED GLUCOSE; Start 11/20/16 at 07:30 Glucagon (Glucagen) 1 mg Q15M PRN IM DECREASED GLUCOSE; Start 11/20/16 at 07: 30 Glucose (Glutose) 15 gm Q15M PRN BUCCAL DECREASED GLUCOSE; Start 11/20/16 at 07:30 Carvedilol 3.125 mg 3.125 mg BID PO Last administered on 12/06/16 08:39; Admin Dose 3.125 MG; Start 11/21/16 at 09:00 Levofloxacin/ Dextrose (Levaquin 750 Mg/ D5W 150 ml (Pmx)) 150 ml @ 100 mls/hr Q48H IVPB Last administered on 12/04/16 12:41; Admin Dose 100 MLS/HR; Start at 12:00 Polyethylene Glycol (Miralax) 17 gm Q48H PRN GTB CONSTIPATION Last administered on 12/05/16 22:31; Admin Dose 17 GM; Start 12/03/16 at 15:00 Docusate Sodium 100 mg 100 mg BID PO Last administered on 12/06/16 08:38; Admin Dose 100 MG; Start 12/03/16 at 21:00 Sodium Chloride (NS) 1,000 ml @ 75 mls/hr [id number] IV Last administered on 12/06 10:19; Admin Dose 75 MLS/HR; Start 12/06/16 at 09:00 Assessment/Plan Chief Complaint/Hosp Course IMPRESSION: 1. Large loculated right pleural effusion, exudative in nature, likely parapneumonic. Status post pigtail catheter drainage with radiographic improvement. 2. Acute on chronic renal failure. 3. Anemia 4. Ascites status post paracentesis. RECOMMENDATIONS: 1. DC pigtail catheter 2. De-escalate antibiotics 3. Infectious disease followup. 4. Nephrology recommendations noted. Discharge planning Problems: JACQUELIN MANUEL MD, [facility] Dec 06, 2016 11:41
[2016-12-06] MEDS: LEVOFLOXACIN 750MG/D5W (PMX) 150 ML IVPB SCH (12:26)
--- NOTE | 2016-12-06 14:03 | PN ---
DATE: 12/06/2016 CARDIOLOGY FOLLOWUP SUBJECTIVE: Discussed with the staff. Rhythm strip was reviewed. The patient is doing better now. Denies any chest pain or pressure to me. Breathing has improved. ____. MEDICATIONS: Reviewed. PHYSICAL EXAMINATION: VITAL SIGNS: Temperature 97.9, heart rate 85, blood pressure 106/66, respiration rate of 16, satura ting 98%. HEENT: Normocephalic, atraumatic. Pupils are equal. CARDIOVASCULAR: Regular rate and rhythm, systolic murmur. PULMONARY: With mild rhonchi. GASTROINTESTINAL: Soft, nontender. EXTREMITIES: No significant lower extremity edema. NEUROLOGIC: Awake, responds appropriately. PSYCHIATRIC: Appears to be calm and pleasant. LABORATORY: WBC of 5.8, hemoglobin 9.2, platelets 180. Sodium 129, potassium 4.1, BUN of 84, creat inine of 2.98, glucose of 96. Chest x-ray done yesterday showed internal right pleural drain remova l, stable right lower lobe infiltrate, small pleural effusion. ASSESSMENT AND PLAN: 1. Paroxysmal respiratory failure. 2. Congestive heart failure. 3. Severe cardiomyopathy, ejection fraction of 35%. 4. Renal failure, acute on chronic, probably. 5. Paroxysmal atrial fibrillation, currently in sinus rhythm. 6. Electrolyte abnormalities. RECOMMENDATIONS: We will continue with the current cardiac care. Will continue to monitor him. Fo llow the renal recommendations. Gentle hydration as long as he can tolerate it will be continued. Dictated By: COLIN MANJARREZ/LANG Conf#: [id number] DID#: [id number] CC: ANIL CONNOR DO;*EndCC*
[2016-12-06 17:43] LABS: MICROALBUMIN 8.5 mg/dL
[2016-12-06] MEDS: ATORVASTATIN 40 MG TAB PO SCH (21:29)
[2016-12-07] VITALS (9 sets, daily range): BP systolic 90–116; BP diastolic 52–70; PULSE 60–63; RESP 17–18
[2016-12-07] MEDS: ALBUTEROL/IPRATROPIUM (NEB) 3 ML AMP HHN SCH ×4 (01:54→12:30)
[2016-12-07] MEDS: ACCUCHECK XX SCH (02:00)
[2016-12-07 06:23] LABS: BASOPHILS % 0.5 % (0.0-2.0); EOSINOPHILS # 0.1 10^3/ul (0.0-0.5); EOSINOPHILS % 0.9 % (0.0-7.0); HEMATOCRIT 26.5 % (42.0-52.0); HEMOGLOBIN 9.4 g/dl (14.0-18.0); LYMPHOCYTES # 1.3 10^3/ul (0.8-2.9); LYMPHOCYTES % 19.7 % (15.0-51.0); MEAN CORPUSCULAR HEMOGLOBIN 35.7 pg (29.0-33.0); MEAN CORPUSCULAR HGB CONC 35.5 g/dl (32.0-37.0); MEAN CORPUSCULAR VOLUME 100.6 fl (82.0-101.0); MEAN PLATELET VOLUME 9.3 fl (7.4-10.4); MONOCYTE # 0.9 10^3/ul (0.3-0.9); MONOCYTES % 13.5 % (0.0-11.0); NEUTROPHIL # 4.3 10^3/ul (1.6-7.5); NEUTROPHILS % 65.4 % (39.0-77.0); PLATELET COUNT 181 10^3/UL (140-440); RED BLOOD COUNT 2.63 10^6/ul (4.70-6.10); UNCORRECTED WBC 6.6 10^3/ul (4.8-10.8); WHITE BLOOD COUNT 6.6 10^3/ul (4.8-10.8)
[2016-12-07 06:33] LABS: CONDITION 1; LH ANALYZER COMMENTS 1
[2016-12-07 06:41] LABS: POTASSIUM 4.5 mmol/L (3.5-5.1)
[2016-12-07 06:43] LABS: CREATININE 3.01 mg/dl (0.61-1.24)
[2016-12-07] MEDS: INSULIN ASPART [NOVOLOG] 3 ML PEN SC SCH ×2 (07:23→11:41)
[2016-12-07] MEDS: DOCUSATE SODIUM 100 MG CAP PO SCH (08:15)
[2016-12-07] MEDS: FAMOTIDINE 20 MG TAB PO SCH (08:15)
[2016-12-07] MEDS: ASPIRIN 81 MG TAB PO SCH (08:15)
--- NOTE | 2016-12-07 11:00 | PN ---
DATE: 12/07/2016 SUBJECTIVE: The patient is stable. No acute events overnight. No fevers, chills, nausea, or vomi ting. No shortness of breath. OBJECTIVE: VITAL SIGNS: Blood pressure is 160/66, respirations 18, pulse 63, temperature 98.1. HEENT: Head is normocephalic. NECK: Supple. HEART: Regular rate. LUNGS: Show diminished breath sounds at the base. ABDOMEN: Soft, nontender to palpation. No rebound or guarding. EXTREMITIES: Negative for clubbing or cyanosis. No edema. DERMATOLOGIC: No rashes. MUSCULOSKELETAL: Have no joint effusion. NEUROLOGIC: No change in exam. MEDICATIONS: The patient's medications have been reviewed. LABORATORY DATA: Shows sodium 138, potassium 4.5, chloride 96, BUN 96, creatinine 3.01, calcium 8.0 . White count 6.6, hemoglobin 9.4, hematocrit 26.5, platelet count 181. IMAGING: Chest x-ray shows a stable right lower lobe infiltrate and pleural effusion. ASSESSMENT AND PLAN: 1. Nonoliguric acute kidney injury on top of chronic kidney disease stage IIIB/IV, with a previous baseline creatinine around 1.5 mg/dL. Etiology of current acute kidney injury was initially due to cardiorenal syndrome. The patient's renal function has stabilized; however, declined in the last se veral days, likely due to prerenal volume depletion. The patient's repeat urinalysis was bland and the patient had a FENa of less than 1%, consistent with prerenal etiology. The patient is currently on IV fluids. Diuretics have been held. Renal function appears to have stabilized in the last 24 hours. At this point will continue the current treatment plan, continue IV hydration. Will continu e to monitor renal function closely. 2. Hyponatremia secondary to acute kidney injury. Sodium levels are stable. Continue IV fluids. 3. Anemia. Continue to monitor hemoglobin and hematocrit levels. 4. Mineral bone disorder. Monitor calcium and phosphorus levels. No need for phosphate binders. 5. Acute diastolic heart failure. The patient is currently euvolemic. Continue fluid challenge an d monitor volume status closely. 6. Left pleural effusion. Status post chest tube placement and removal. 7. Acute respiratory failure secondary to congestive heart failure. Improved. 8. Atrial fibrillation. Rate controlled. Continue the current medical management. 9. History of gastric and colon carcinoma. Dictated By: ANIL PERALES/LANG Conf#: [id number] DID#: [id number]
--- NOTE | 2016-12-07 11:08 | PDOCDIS ---
Discharge Instructions CONDITION Patient Condition: Good HOME CARE INSTRUCTIONS: Special Diet: 1800 carleen; 2 ga na ACTIVITY: Activity Restrictions: Slowly Increase Activity Rest between Activity Avoid heavy lifting Avoid Heavy Housework FOLLOW UP/APPOINTMENTS Appointments Follow up with PCP in early next week Follow up with Pulmonary in 1-2 weeks ADELITA DINH MD Dec 07, 2016 11:08
[2016-12-07] MEDS ORDERED: CEPH500C PO (11:24)
[2016-12-07] MEDS ORDERED: LEVO500T72 PO (11:24)
[2016-12-07] MEDS ORDERED: LACT10SO5 PO (11:24)
[2016-12-07] MEDS ORDERED: DOCU-144 PO (11:24)
[2016-12-07] MEDS ORDERED: CARV3.1260 PO (11:24)
[2016-12-07] MEDS ORDERED: BENA20TA48 PO (11:24)
[2016-12-07] MEDS ORDERED: ONDA4TAB8 PO (11:24)
[2016-12-07] MEDS: SOD CHLORIDE 0.9% 1,000 ML IV SCH (11:40)
[2016-12-07] MEDS: ONDANSETRON 4 MG INJ IV PRN (12:06)
[2016-12-07] MEDS ORDERED: FURO20TA3 PO (12:08)
--- NOTE | 2016-12-07 15:08 | PN ---
DATE: 12/07/2016 PULMONARY FOLLOWUP SUBJECTIVE: Chart reviewed. Events noted. Patient on room air, saturating 100%, and does not appe ar in acute distress. PHYSICAL EXAMINATION: VITAL SIGNS: Blood pressure 90/52, pulse 57, respirations 17, temperature 98.4. HEENT: Pupils are equal and reactive to light. Anicteric sclerae. NECK: Supple. No JVD noted, no cervical adenopathy noted, no carotid bruits heard. LUNGS: Fair breath sounds bilaterally, decreased breath sounds at the right base. CARDIOVASCULAR: S1, S2 normal. ABDOMEN: Soft, nontender, no organomegaly or masses noted. EXTREMITIES: No clubbing, cyanosis, or edema noted. NEUROLOGIC: No deficits. LABORATORY: WBC 6.6, hemoglobin 9.4, hematocrit 26.5, platelets 181. Sodium 130, potassium 4.5, ch loride 96, CO2 21, BUN 86, creatinine 3.01, glucose 96. IMPRESSION: 1. Large loculated pleural effusion, status post chest tube drainage. 2. Acute on chronic renal failure. 3. Anemia 4. Ascites, status post paracentesis. RECOMMENDATIONS: 1. Discharge plans noted. 2. Complete antibiotics as per ID recommendation. 3. Followup chest x-ray after completion of antibiotics. Dictated By: ANKITA PICKERING MD, MA/LANG Conf#: [id number] DID#: [id number]
--- NOTE | 2016-12-08 05:28 | DS ---
DATE OF ADMISSION: 11/18/2016 DATE OF DISCHARGE: 12/07/2016 CONSULTANTS: 1. Dr. Alfa Macias. 2. Dr. Soren Anton. 3. Dr. James Savage. 4. Dr. Tati Amanda. 5. Dr. Jose Hendrix. 6. Dr. Delroy Wynn. PROCEDURES: A 2D echocardiogram showed normal left ventricular cavity size. Normal left ventricula r wall thickness. Moderate left ventricle systolic dysfunction. Ejection fraction visually estimat ed at 35%. Stage III to IV diastolic dysfunction. There is a mild enlargement of left atrium. Saleem ral leaflet appears mildly thickened. Mild mitral annular calcification. Mild mitral valve regurgi tation. Estimated peak PA systolic pressure 55 mmHg. DISCHARGE DIAGNOSES: 1. Paroxysmal respiratory failure. 2. Congestive heart failure. 3. Severe cardiomyopathy with ejection fraction of 35%. 4. Acute on chronic renal insufficiency. 5. Paroxysmal atrial fibrillation, currently sinus rhythm. 6. Hyponatremia. 7. Alcoholic liver disease, status post paracentesis. 8. Hyperkalemia, resolved. 9. Coagulopathy with positive hepatitis B core antigen. 10. Gastric and colon cancer, status post surgery and chemo. 11. History of alcohol abuse in remission. 12. Megaloblastic anemia secondary to history of alcohol abuse. LABS ON DAY OF DISCHARGE: WBC 6.6, hemoglobin 9.4, hematocrit 6.5, platelets 181, MCV 100.6. Sodiu m 130, potassium 4.5, chloride 96, bicarbonate 21, BUN 86, creatinine 3.01, glucose 96, calcium 8.0, magnesium 4.0. Vitamin B12 994. Folate 18.3. TSH 2.29, free T4 of 2.13. PROCEDURES 1. Successful ultrasound and fluoroscopic-guided placement of right chest tube on 11/30/2016. 2. Fluoroscopic-guided removal of right chest catheter on 12/05/2016. 3. Paracentesis on 11/24/2016. 4. Thoracocentesis on 11/20/2016. HOSPITAL COURSE: This is a 66-year-old gentleman with past medical history of cardiomyopathy with e jection fraction of 35%, hypertension, atrial fibrillation, dyslipidemia, diabetic mellitus type 2, gastric and colon cancer, status post surgery, who presented to the emergency room with shortness of breath and chest pain. The patient also reported to have abdominal distention, lower extremity swe lling. The symptoms have been getting progressively worse x2 days. The pain was substernal, describ ed as sharp tightness with no radiation, blood pressure 143/81, pulse 71, respirations 20, temperatu re 98.3, oxygen 97%. CT of the chest was done and showed large right and small left pleural effusion with associated atel ectasis. The right pleural effusion is likely loculated. Thoracic surgery and webbing supervisor were co nsulted. Patient was also found to have acute renal insufficiency. Nephrology was consulted. A 2- D echocardiogram was obtained which showed ejection fraction of 35% with stage III to IV diastolic d ysfunction. Patient was placed on diuresis, was seen and evaluated by the cardiothoracic surgeon. He had a thoracocentesis and after reviewing the x-rays and CT of the chest, it was agreed to procee d with interventional radiology to place a chest tube which was done on 11/30/2016. After reviewing the chest x-ray on 12/05/2016 by the webbing supervisor's recommendations, the chest tube was removed. The patient also had a thoracocentesis on 11/20/2016 and a paracentesis on 11/24/2016, and has been continued on medical management with diuresis. He has been seen and evaluated by physical therapy. He has been able to tolerate his oral intake without any difficulty. At this time, patient is medi lora stable in fair condition and has been cleared by the webbing supervisor to be discharged home with a close followup with the webbing supervisor and primary care physician as an outpatient. MEDICATIONS AT TIME OF DISCHARGE: 1. Benazepril 10 mg. 2. Coreg 3.125 mg. 3. Keflex 500. 4. Colace 100 mg. 5. Lactulose 10 grams. 6. Levaquin 500 mg. 7. Zofran 4 mg. 8. Aspirin 81 mg. 9. Atorvastatin 40 mg. 10. ____20 mg 11. Aldactone 25 mg. 12. Lasix 20 mg. ALLERGIES: NO KNOWN DRUG ALLERGIES. DIET: Low carbohydrate diet. ACTIVITY: As tolerated. Total amount of time spent for evaluation of patient and discharge workup: 45 minutes. Dictated By: ADELITA MOLINA/LANG Conf#: [id number] [facility]#: [id number]
--- NOTE | 2016-12-08 13:29 | PN ---
DATE: 12/07/2016 CARDIOLOGY FOLLOWUP SUBJECTIVE: Discussed with the staff, discussed with . discussed with the family member. The patient is feeling better, patient wants to go home. MEDICATIONS: Reviewed as per medication reconciliation, personally reviewed. PHYSICAL EXAMINATION: VITAL SIGNS: Temperature 97.6, heart rate of 60, blood pressure 98/61, respiratory rate of 17. Sat urating 96%. HEENT: Normocephalic, atraumatic. Thin gentleman. Pupils are equal. CARDIOVASCULAR: Regular rate and rhythm, systolic murmur. PULMONARY: Rhonchi at the base, right side mostly. GASTROINTESTINAL: Soft, nontender. EXTREMITIES: With no significant lower extremity edema. NEUROLOGIC: Awake and alert. PSYCHIATRIC: Calm, pleasant. LABORATORY: WBC of 6.6, hemoglobin 9.4, platelet 181. Sodium 130, potassium 4.5, BUN of 86, creati nine 3.01, glucose of 96. Mag is 2. ASSESSMENT AND PLAN: 1. Severe cardiomyopathy. 2. Congestive heart failure. 3. Loculated left pleural effusion, status post chest tube drainage and removal. 4. Renal failure, acute on chronic. 5. Anemia. 6. Ascites. 7. Cardiomyopathy. RECOMMENDATIONS: The patient is being discharged. has been discontinued due to his acute re nal failure on chronic kidney disease. He has been scheduled for outpatient followup with me. I murillo ve given a prescription for the blood tests including BMP and BNP to the patient's daughter to be do ne 2 days prior to followup with me. Dictated By: COLIN MANJARREZ/LANG Conf#: [id number] DID#: [id number]
== END 2016-12-07 16:23 | disposition home health service (06) | DRG 291 ==
LOC: E/R 13:10 → TEL 20:54
PROVIDERS: ADMIT Internal Medicine; ATTEND Internal Medicine
PROC: 30233K1 Transfusion of Nonautologous Frozen Plasma into Peripheral Vein, Percutaneous Approach (ICD-10-PCS; 2016-11-19)
PROC: 0W993ZX Drainage of Right Pleural Cavity, Percutaneous Approach, Diagnostic (ICD-10-PCS; principal; 2016-11-20)
PROC: 0W9G3ZZ Drainage of Peritoneal Cavity, Percutaneous Approach (ICD-10-PCS; 2016-11-24)
PROC: 30233N1 Transfusion of Nonautologous Red Blood Cells into Peripheral Vein, Percutaneous Approach (ICD-10-PCS; 2016-11-26)
PROC: 0W9930Z Drainage of Right Pleural Cavity with Drainage Device, Percutaneous Approach (ICD-10-PCS; 2016-11-30)
PROC: 0BPQ30Z Removal of Drainage Device from Pleura, Percutaneous Approach (ICD-10-PCS; 2016-12-05)
DX: I13.0 Hypertensive heart and chronic kidney disease with heart failure and stage 1 through stage 4 chronic kidney disease, or unspecified chronic kidney disease (principal); J96.01 Acute respiratory failure with hypoxia; K76.7 Hepatorenal syndrome; N17.9 Acute kidney failure, unspecified; D68.9 Coagulation defect, unspecified; N18.4 Chronic kidney disease, stage 4 (severe); J91.8 Pleural effusion in other conditions classified elsewhere; D53.1 Other megaloblastic anemias, not elsewhere classified; I50.43 Acute on chronic combined systolic (congestive) and diastolic (congestive) heart failure; J98.11 Atelectasis; B18.1 Chronic viral hepatitis B without delta-agent; I42.9 Cardiomyopathy, unspecified; I48.91 Unspecified atrial fibrillation; F10.10 Alcohol abuse, uncomplicated; E11.9 Type 2 diabetes mellitus without complications; Z85.038 Personal history of other malignant neoplasm of large intestine; E87.5 Hyperkalemia; Z85.028 Personal history of other malignant neoplasm of stomach; K70.31 Alcoholic cirrhosis of liver with ascites; D63.8 Anemia in other chronic diseases classified elsewhere; J45.909 Unspecified asthma, uncomplicated; I36.1 Nonrheumatic tricuspid (valve) insufficiency
CPT/HCPCS: 36415; 36430; 71010; 71250; 74000; 75989; 76705; 76775; 76942; 80048; 80053; 81003; 82042; 82043; 82550; 82553; 82607; 82746; 82962; 83615; 83690; 83735; 83880; 84100; 84155; 84157; 84300; 84439; 84443; 84484; 85025; 85610; 85730; 86704; 86709; 86803; 86850; 86900; 86901; 86920; 87070; 87081; 87102; 87116; 87340; 88104; 88305; 88341; 88342; 89050; 93005; 93306; 94640; 94664; 96374; 96375; 97001; 97110; 97116; 97530; J1120; J1940; J1815; J1956; J2250; J2270; J2405; J2765; J3010; J7030; J7040; P9016; P9047; P9059

== ENCOUNTER 2017-01-07 18:58 | Inpatient (IN) | payer MEDICARE, OTHER ==
[~2017-01-07] VITALS: Ht 177.8 cm; Wt 67.5 kg
[~2017-01-07 18:58] MED LIST changes: -ASP81 PO; +ASPI81TA3 PO; -BENA20TA65 PO; +CARV3.1260 PO; +CEPH500C PO; -Carvedilol PO; +DOCU-144 PO; +FURO20TA3 PO; -FURO40TA PO; -GLIM1TAB PO; +LACT10SO5 PO; +LEVO500T72 PO; +ONDA4TAB8 PO; -PRED20TA PO; +SPIR25TA PO; -SPIR25TA76 PO
[2017-01-07 20:23] VITALS: TEMP 98
[2017-01-07 20:48] LABS: BASOPHILS % 0.5 % (0.0-2.0); EOSINOPHILS # 0.1 10^3/ul (0.0-0.5); HEMATOCRIT 25.2 % (42.0-52.0); HEMOGLOBIN 8.3 g/dl (14.0-18.0); LYMPHOCYTES % 19.8 % (15.0-51.0); MEAN CORPUSCULAR HEMOGLOBIN 30.2 pg (29.0-33.0); MEAN CORPUSCULAR HGB CONC 32.8 g/dl (32.0-37.0); MEAN PLATELET VOLUME 9.4 fl (7.4-10.4); MONOCYTE # 0.5 10^3/ul (0.3-0.9); MONOCYTES % 10.6 % (0.0-11.0); NEUTROPHIL # 3.5 10^3/ul (1.6-7.5); NEUTROPHILS % 68.1 % (39.0-77.0); PLATELET COUNT 269 10^3/UL (140-440); RED BLOOD COUNT 2.74 10^6/ul (4.70-6.10); RED CELL DISTRIBUTION WIDTH 17.5 % (11.5-14.5); UNCORRECTED WBC 5.1 10^3/ul (4.8-10.8); WHITE BLOOD COUNT 5.1 10^3/ul (4.8-10.8)
[2017-01-07 20:50] LABS: CONDITION 1; LH ANALYZER COMMENTS 1
[2017-01-07 20:57] LABS: ALBUMIN 3.4 g/dl (3.3-4.9); INR 1.72; POTASSIUM 4.6 mmol/L (3.5-5.1); PROTIME 20.3 Sec (12.2-14.2); PT RATIO 1.6
[2017-01-07 20:58] LABS: PARTIAL THROMBOPLASTIN TIME 46.5 Sec (25.0-35.0)
[2017-01-07 20:59] LABS: BILIRUBIN,INDIRECT 0.2 mg/dl (0-1.1); BILIRUBIN,TOTAL 0.2 mg/dl (0.2-1.3); CREATININE 2.83 mg/dl (0.61-1.24)
[2017-01-07 21:00] LABS: ALBUMIN/GLOBULIN RATIO 0.87; TOTAL PROTEIN 7.3 g/dl (6.1-8.1)
--- NOTE | 2017-01-07 21:09 | RADRPT ---
PROCEDURE: XR Chest. CLINICAL INDICATION: Chest pain. TECHNIQUE: Single frontal view of the chest was obtained COMPARISON: Chest x-ray 12/06/2016. FINDINGS: The heart is enlarged. There are asymmetry perihilar and basilar infiltrates associated with bilate ral pleural effusions. The left pleural effusion increased in size since the prior study. There ar e vascular calcifications in the aortic arch. The pulmonary vasculature is equilibrated. There are d egenerative osteophytes in the thoracic spine. IMPRESSION: 1. Cardiomegaly with bilateral pleural effusions. The left pleural effusion increased in size when compared to the prior chest x-ray. 2. Asymmetric perihilar and basilar infiltrates which are more pronounced in the right perihilar ar ea and right lower lobe areas. Asymmetric pulmonary edema associated with CHF or asymmetric infiltr ates from pneumonia might present this fashion. 3. Atherosclerosis of the aortic arch. RPTAT:AAJJ Physician Jenna Date Time Electronically viewed and signed by Physician Jenna on 01/07/2017 21:09 CONNIE/
[2017-01-07 21:12] LABS: TROPONIN-I 0.019 ng/ml (0.00-0.12)
[2017-01-07] MEDS ORDERED: ALLO300T2 PO (21:31)
[2017-01-07] MEDS ORDERED: BUME1TAB18 PO (21:31)
[2017-01-07] MEDS ORDERED: AMIO200T2 PO (21:32)
[2017-01-07] MEDS ORDERED: ISOS30TA5 PO (21:32)
[2017-01-07] MEDS ORDERED: APIX2.5T PO (21:32)
--- NOTE | 2017-01-07 22:30 | ERA ---
ER Documentation Chief Complaint Date/Time DATE: 01/07/17 TIME: 20:20 Chief Complaint PT HAS HX OF CHF AND HAVING DIFFICULTY BREATHING 8 DAYS HPI 66-year-old male with a history of cardiomyopathy with ejection fraction 35%, congestive heart failure, respiratory failure, chronic renal insufficiency, paroxysmal A. fib, alcoholic liver disease, gastric cancer and megaloblastic anemia ambulatory to the ED complaining of a one-week history of increasing shortness of breath, PND, orthopnea, exertional dyspnea and lower extremity swelling. Denies chest pain or palpitations. No cough or sputum production. Denies abdominal pain, nausea, vomiting, diarrhea or constipation. No hematemesis hematochezia. Lower extremity swelling but no calf pain. No fevers or chills. ROS All systems reviewed and are negative except as per history of present illness. Medications Home Meds Active Scripts Carvedilol* (Carvedilol*) 3.125 Mg Tablet, 3.125 MG PO BID, #60 TAB Prov:ADELITA DINH MD 12/07/16 Reported Medications Isosorbide Mononitrate* (Isosorbide Mononitrate*) 30 Mg Tab.er.24h, 30 MG PO DAILY, TAB 01/07/17 Amiodarone Hcl* (Amiodarone Hcl*) 200 Mg Tablet, 200 MG PO DAILY, #30 TAB 01/07/17 Apixaban* (Eliquis*) 2.5 Mg Tablet, 2.5 MG PO BID, TAB 01/07/17 Bumetanide* (Bumetanide*) 1 Mg Tablet, 1 MG PO BID, TAB 01/07/17 Allopurinol* (Allopurinol*) 300 Mg Tablet, 300 MG PO DAILY, TAB 01/07/17 Atorvastatin* (Atorvastatin*) 40 Mg Tablet, 40 MG PO HS, TAB 09/07/14 Famotidine* (Famotidine*) 20 Mg Tablet, 20 MG PO DAILY 09/28/12 Discontinued Scripts Furosemide* (Furosemide*) 20 Mg Tablet, 20 MG PO DAILY, #30 TAB Prov:ADELITA DINH MD 12/07/16 Ondansetron Hcl* (Zofran*) 4 Mg Tablet, 4 MG PO Q6H Y for NAUSEA AND OR VOMITING , #20 TAB Prov:ADELITA DINH MD 12/07/16 Lactulose* (Lactulose*) 10 Gm/15 Ml Solution, 10 GM PO Q8 Y for CONSTIPATION, # 300 ML Prov:ADELITA DINH MD 12/07/16 Cephalexin* (Cephalexin*) 500 Mg Capsule, 500 MG PO Q8, #15 CAP Prov:ADELITA DINH MD 12/07/16 Levofloxacin* (Levaquin*) 500 Mg Tablet, 500 MG PO Q48H for 14 Days, TAB Prov:ADELITA DIHN MD 12/07/16 Docusate Sodium* (Colace*) 100 Mg Capsule, 100 MG PO BID Y for CONSTIPATION, # 30 CAP Prov:ADELITA DINH MD 12/07/16 Spironolactone* (Aldactone*) 25 Mg Tab, 25 MG PO DAILY, #30 Prov:KATE JACOBS INGOT WEIGHER 09/07/14 Aspirin (Aspirin) 81 Mg Chew, 81 MG PO DAILY, #30 Prov:KATE JACOBS INGOT WEIGHER 09/07/14 Allergies Allergies: Coded Allergies: No Known Allergy (Verified , 01/07/17) PMhx/Soc Reviewed in chart. As per HPI. History of Surgery: Yes (see notes) Anesthesia Reaction: No Hx Neurological Disorder: No Hx Respiratory Disorders: Yes (shortness of breath) Hx Cardiac Disorders: Yes Hx Psychiatric Problems: No Hx Miscellaneous Medical Probl: Yes (see notes) Hx Alcohol Use: No (for last 3 years) Hx Substance Use: No Hx Tobacco Use: No Smoking Status: Never smoker FmHx Reviewed in chart. Not relevant to presenting complaint. No stroke or cancer. Physical Exam Vitals Vital Signs Date Time Temp Pulse Resp B/P Pulse Ox O2 Delivery O2 Flow Rate FiO2 01/07/17 20:23 98.0 57 20 146/65 100 Room Air 01/07/17 19:15 97.5 59 18 99/59 96 Physical Exam Const: Alert, mild -moderate respiratory distress. Head: Atraumatic Eyes: Normal Conjunctiva ENT: Normal External Ears, Nose and Mouth. Mucous members are moist. Neck: Full range of motion. JVD at 90. Nontender. No meningismus. Resp: Breath sounds diminished bilaterally left greater than right with rales intermediate up both lung davidson. No wheezing or rhonchi. Cardio: Bradycardic. Regular rate and rhythm, no murmurs Abd: Soft, non tender, mild distention. Normal bowel sounds Skin: Multiple ecchymoses but no rashes. Back: No midline or flank tenderness Ext: 3+ pitting edema bilateral lower extremities. Neur: Awake and alert. Cranial nerves II through XII grossly intact. No focal deficit. Psych: Cooperative, normal Mood and Affect Result Diagram: 01/10/17 0720 01/10/17 0720 Results 24 hrs Laboratory Tests Test 01/07/17 20:27 01/07/17 22:50 Activated Partial Thromboplast Time 46.5Sec Alanine Aminotransferase (ALT/SGPT) 42IU/L Albumin 3.4g/dl Albumin/Globulin Ratio 0.87 Alkaline Phosphatase 268IU/L Anion Gap 16 Aspartate Amino Transf (AST/SGOT) 52IU/L B-Type Natriuretic Peptide 94365LU/ML Basophils # 0.010^3/ul Basophils % 0.5% Blood Morphology Comment Blood Urea Nitrogen 50mg/dl Calcium Level 8.0mg/dl Carbon Dioxide Level 30mmol/L Chloride Level 99mmol/L Creatinine 2.83mg/dl Direct Bilirubin 0.00mg/dl Eosinophils # 0.110^3/ul Eosinophils % 1.0% Globulin 3.90g/dl Glucose Level 128mg/dl Hematocrit 25.2% Hemoglobin 8.3g/dl INR International Normalized Ratio 1.72 Indirect Bilirubin 0.2mg/dl Lymphocytes # 1.010^3/ul Lymphocytes % 19.8% Mean Corpuscular Hemoglobin 30.2pg Mean Corpuscular Hemoglobin Concent 32.8g/dl Mean Corpuscular Volume 92.0fl Mean Platelet Volume 9.4fl Monocytes # 0.510^3/ul Monocytes % 10.6% Neutrophils # 3.510^3/ul Neutrophils % 68.1% Nucleated Red Blood Cells # 0.010^3/ul Nucleated Red Blood Cells % 0.0/100WBC Platelet Count 22287^3/UL Potassium Level 4.6mmol/L Prothrombin Time 20.3Sec Prothrombin Time Ratio 1.6 Red Blood Count 2.7410^6/ul Red Cell Distribution Width 17.5% Sodium Level 140mmol/L Total Bilirubin 0.2mg/dl Total Protein 7.3g/dl Troponin I 0.019ng/ml White Blood Count 5.110^3/ul Urine Bilirubin NEGATIVE Urine Clarity CLEAR Urine Color YELLOW Urine Glucose NEGATIVE% Urine Hemoglobin NEGATIVE Urine Ketones TRACE Urine Leukocyte Esterase NEGATIVE Urine Nitrite NEGATIVE Urine Specific [place] <=1.005 Urine Total Protein NEGATIVE Urine Urobilinogen 0.2 E.U./dL Urine pH 6.0 RHYTHM STRIP INTERPRETATION: Time: 20:20. Sinus bradycardia. Ventricular rate 58. No ectopy. Indication: Shortness of breath. EKG: TIME: 19:18. Sinus bradycardia. Ventricular rate 58. CO interval 228 ms consistent with first-degree AV block. Septal Q waves in leads V1 through V3. Leads I and aVL. No acute ST segment elevation or depression. No ectopy. EP Interpretation: Abnormal EKG. IMAGING: PROCEDURE: XR Chest. CLINICAL INDICATION: Chest pain. TECHNIQUE: Single frontal view of the chest was obtained COMPARISON: Chest x-ray 12/06/2016. FINDINGS: The heart is enlarged. There are asymmetry perihilar and basilar infiltrates associated with bilateral pleural effusions. The left pleural effusion increased in size since the prior study. There are vascular calcifications in the aortic arch. The pulmonary vasculature is equilibrated. There are degenerative osteophytes in the thoracic spine. IMPRESSION: 1. Cardiomegaly with bilateral pleural effusions. The left pleural effusion increased in size when compared to the prior chest x-ray. 2. Asymmetric perihilar and basilar infiltrates which are more pronounced in the right perihilar area and right lower lobe areas. Asymmetric pulmonary edema associated with CHF or asymmetric infiltrates from pneumonia might present this fashion. 3. Atherosclerosis of the aortic arch. RPTAT:AAJJ Physician Jenna Date Time Electronically viewed and signed by Physician Jenna on 01/07/2017 21:09 JM/ Procedures/MDM DOCUMENTS REVIEWED: ED nurse, prior ED, prior records MEDICAL DECISION MAKIN-year-old male with a history of cardiomyopathy with ejection fraction 35%, congestive heart failure, respiratory failure, chronic renal insufficiency, paroxysmal A. fib, alcoholic liver disease, gastric cancer and megaloblastic anemia ambulatory to the ED complaining of a one-week history of increasing shortness of breath, PND, orthopnea, exertional dyspnea and lower extremity swelling. Presentation was admitted with acute congestive heart failure and worsening bilateral pleural effusions. No acute ischemic EKG changes, elevated troponin or other signs of acute coronary syndrome. Bilateral lower extremity swelling but DVT is unlikely. No fever or other signs of acute infectious process. Diuretics given. Patient will be admitted to telemetry for diuresis, further evaluation and management. Counseled patient and family regarding diagnosis, diagnostic results and plan for admission. Critical Care Time: 35 minutes Treatments/Evaluations: Close monitoring and treatment of unstable vital signs, cardiorespiratory, and neurologic status, while maintaining tight balance of fluid, respiratory, and cardiac interventions. This time includes discussing the case with the patient and the patient's family. This time does not include all procedures stated elsewhere in this record. This time also includes reviewing old records, labs and radiological studies. This time includes examining and re-examining the patient. Additionally, this time also includes arranging care with admitting and consulting physicians. CALLS/CONSULTS: Time 22:02, Dr. Angulo PATIENT CARE TRANSITIONED: Time: 22:02, Dr. venegas. Departure Diagnosis: Primary Impression: CHF (congestive heart failure) Qualified Code: I50.23 - Acute on chronic systolic congestive heart failure Additional Impressions: Bilateral pleural effusion Acute on chronic renal failure Cardiomyopathy Qualified Code: I42.9 - Cardiomyopathy, unspecified type Acute dyspnea Anemia Qualified Code: D64.9 - Anemia, unspecified type Condition: Serious LISETTE HARRIS MD Jan 07, 2017 22:30
[2017-01-07] MEDS ORDERED: ACETAMINOPHEN 325 MG TAB PO PRN (23:00)
[2017-01-07] MEDS ORDERED: ONDANSETRON 4 MG INJ IV PRN (23:00)
[2017-01-07 23:50] VITALS: PULSE 56
[2017-01-08] VITALS (10 sets, daily range): BP systolic 107–122; BP diastolic 63–69; PULSE 54–59; RESP 16–18; Ht 177.8 cm; Wt 67.5 kg
[2017-01-08 00:11] LABS: ADD UMIC NO; URINE BILIRUBIN (Dip) NEGATIVE (NEGATIVE); URINE BLOOD (Dip) NEGATIVE (NEGATIVE); URINE COLOR YELLOW (YELLOW); URINE GLUCOSE (Dip) NEGATIVE (NEGATIVE); URINE KETONES (Dip) TRACE (NEGATIVE); URINE LEUKOCYTE ESTERASE (Dip) NEGATIVE (NEGATIVE); URINE NITRITE (Dip) NEGATIVE (NEGATIVE); URINE TOTAL PROTEIN (Dip) NEGATIVE (NEGATIVE); URINE UROBILINOGEN (Dip) 0.2 E.U./dL (0.1-1.0)
--- NOTE | 2017-01-08 07:35 | HP ---
DATE OF ADMISSION: 01/07/2017 TIME SEEN: 2200. CHIEF COMPLAINT: 1. Shortness of breath. 2. Lower extremity swelling. HISTORY OF PRESENT ILLNESS: The patient is a 66-year-old male with a history of cardiomyopathy with systolic dysfunction with an EF of 35%, chronic kidney disease, paroxysmal AFib, decompensated live r cirrhosis, history of alcohol abuse, gastric and colon cancer status post surgery and chemo, anemi a who presented to the emergency department with a chief complaint of shortness of breath and lower extremity swelling. The patient stated that his symptoms are chronic but progressively worsening ov er the past day or 2. He denies any chest pain. He was last admitted here exactly a month ago for shortness of breath and abdominal distention and lower extremity swelling. At that time, a chest CT showed large right pleural effusion which was partially loculated. He did have coarse thoracentesi s as well as placement of a chest tube for drainage. He also underwent a paracentesis. His chest h e was subsequently removed and after improvement of his symptoms was discharged. A 2D echo at that time showed an EF of 35%. When he presented to the ER this time, blood pressure 99/59, heart rate 59, respiratory rate 18, tem perature 97.5, oxygen saturation 96% on room air. Laboratory value shows a hemoglobin of 8.3 from 9 .4 last month. Creatinine of 2.8 from 3 months ago, AST 52, alkaline phosphatase , BNP 15,600 . Chest x-ray shows cardiomegaly with bilateral pleural effusion. The left effusion increased in s ize compared to the chest x-ray that was done a month ago. Also asymmetric perihilar and basilar in filtrates which are more pronounced in the right perihilar area and right lower lobe area. Asymmetr ic pulmonary edema associated with CHF or asymmetric infiltrate from pneumonia according to the radi ology might present in this fashion. He received Zofran and Tylenol in the ER and admitted to [facility]. The patient denied chest pain, fever, chills, nausea, or vomiting. REVIEW OF SYSTEMS: A 12-point review of systems was performed, negative except as mentioned in HPI. PAST MEDICAL HISTORY: As per HPI. PAST SURGICAL HISTORY: As per HPI. SOCIAL HISTORY: Positive for history of alcohol abuse. ALLERGIES: NO KNOWN DRUG ALLERGIES. HOME MEDICATIONS: 1. Eliquis. 2. Amiodarone. 3. Lipitor. 4. Coreg. 5. Imdur. 6. Bumex. 7. Pepcid. 8. Allopurinol. PHYSICAL EXAMINATION: VITAL SIGNS: Heart rate 56, otherwise the rest of vitals stable. GENERAL: The patient in some respiratory distress and not able to speak in full sentences. HEENT: No obvious head deformity. Pupils are reactive to light. CARDIOVASCULAR: Bradycardic with regular rhythm. LUNGS: He has decreased breath sounds on both lungs. ABDOMEN: Is somehow distended. There is some discomfort to deep palpation diffusely with no guardi ng, rebound, tenderness, or rigidity. There are positive bowel sounds. EXTREMITIES: There is significant bilateral lower extremity pitting edema. LABORATORY DATA: Pertinent positives are as mentioned in the HPI. IMPRESSION: 1. Acute on chronic congestive heart failure. 2. Shortness of breath, secondary to above. 3. Cardiomyopathy with ejection fraction of 35%. 4. Paroxysmal atrial fibrillation, currently in sinus rhythm. 5. Decompensated liver disease, with a history of coagulopathy, ascites with paracentesis. 6. Bilateral pleural effusion with possible underlying pneumonia. 7. Anemia, most likely secondary to chronic disease. 8. History of gastric and colon cancer, status post surgery and chemo. PLAN: Continue telemetry monitoring. He will be continued with his home medication, but will incre ase his Bumex frequency. and monitor urine output closely. Will place a cardiology consult. Will perform thoracentesis and paracentesis as needed. Given a possible infiltrate that was noted on the chest x-ray, he will be placed on antibiotics. Note that the patient was here a month ago. At that time, he was noted to have a large pleural effusion requiring thoracentesis and placement of a chest tube. He had also undergone a paracentesis at that time. Will monitor his kidney function closely, which is stable. Avoid nephrotoxins. Will consider a nep hrology consult. Further workup and management per clinical course. Dictated By: RICK CHEUNG/LANG Conf#: [id number] DID#: [id number]
[2017-01-08 07:37] LABS: BASOPHILS % 0.6 % (0.0-2.0); EOSINOPHILS # 0.1 10^3/ul (0.0-0.5); EOSINOPHILS % 1.1 % (0.0-7.0); HEMATOCRIT 22.9 % (42.0-52.0); HEMOGLOBIN 7.8 g/dl (14.0-18.0); LYMPHOCYTES # 1.4 10^3/ul (0.8-2.9); LYMPHOCYTES % 29.9 % (15.0-51.0); MEAN CORPUSCULAR HEMOGLOBIN 30.9 pg (29.0-33.0); MEAN CORPUSCULAR HGB CONC 33.8 g/dl (32.0-37.0); MEAN CORPUSCULAR VOLUME 91.5 fl (82.0-101.0); MEAN PLATELET VOLUME 9.4 fl (7.4-10.4); MONOCYTE # 0.5 10^3/ul (0.3-0.9); MONOCYTES % 10.8 % (0.0-11.0); NEUTROPHIL # 2.8 10^3/ul (1.6-7.5); NEUTROPHILS % 57.6 % (39.0-77.0); PLATELET COUNT 260 10^3/UL (140-440); RED BLOOD COUNT 2.51 10^6/ul (4.70-6.10); RED CELL DISTRIBUTION WIDTH 17.3 % (11.5-14.5); UNCORRECTED WBC 4.9 10^3/ul (4.8-10.8); WHITE BLOOD COUNT 4.9 10^3/ul (4.8-10.8)
[2017-01-08 07:57] LABS: CREATININE 2.38 mg/dl (0.61-1.24)
[2017-01-08 07:58] LABS: PHOSPHORUS 3.7 mg/dl (2.5-4.9)
[2017-01-08 07:59] LABS: CONDITION 1; LH ANALYZER COMMENTS 1
[2017-01-08] MEDS: ISOSORBIDE MONONITRATE(SR)30 MG TAB PO SCH (09:00)
[2017-01-08] MEDS: ALLOPURINOL 300 MG TAB PO SCH (09:23)
[2017-01-08] MEDS: AMIODARONE 200 MG TAB PO SCH (09:23)
[2017-01-08] MEDS: FAMOTIDINE 20 MG TAB PO SCH (09:23)
[2017-01-08] MEDS: HEPARIN 5,000 UNIT/0.5 ML SYG SC SCH ×2 (09:25→21:00)
[2017-01-08] MEDS: BUMETANIDE 1 MG TAB PO SCH ×2 (11:44→22:44)
--- NOTE | 2017-01-08 15:37 | PN ---
Date/Time of Note Date/Time of Note DATE: 01/08/17 TIME: 15:36 Assessment/Plan VTE Prophylaxis VTE Prophylaxis Intervention: heparin Lines/Catheters IV [facility] Peripheral IV Urinary Cath still in place: No Assessment/Plan Chief Complaint/Hosp Course Assessment and plan 1. Acute on chronic CHF. Patient with most recent echocardiogram in 11/20/2016 with EF of 35% with stage III to stage IV diastolic dysfunction. We'll continue on Bumex diuretic. [employer] Apprentice follow. 2. Pulmonary hypertension. Patient seen with PASP of 55 mmHg. Patient also noted with severe tricuspid regurgitation. Continue on diuretic. Follow-up with cardiology recommendations 3. Bilateral pleural effusion secondary to decompensated CHF. Continue on diuretic. Monitor renal panel. Thoracentesis if respiratory status continues to deteriorate 4. Suspect pneumonia. Continue on antibiotic 5. Cardiomyopathy with ejection fraction of 35%. Continue optimization with cardiovascular medications 6. Decompensated liver disease with history of coagulopathy. Monitor H&H. Paracentesis prn 7. Anemia of chronic disease. Monitor H&H. Transfuse PRBC as needed 8. Paroxysmal fibrillation. Stable at present. Continue telemetry monitoring 9. History of gastric and colon cancer. Patient status post surgery and chemotherapy. No active issue at this time. We'll monitor 10. Acute on chronic kidney disease. Monitor renal panel. We'll get freezer person follow Disposition and plan: Nephrology and cardiology consultations to be obtained. Continue on diuretic. Await clinical improvement of respiratory status Discussed plan of care with Dr. Adamson Problems: Subjective 24 Hr Interval Summary Free Text/Dictation Seen on room air. Reports little bit better breathing at this time. Exam/Review of Systems Vital Signs Vitals Vital Signs Date Time Temp Pulse Resp B/P Pulse Ox O2 Delivery O2 Flow Rate FiO2 01/08/17 12:28 56 01/08/17 11:56 98.3 16 119/67 98 01/08/17 00:53 Nasal Cannula 2.0 Intake and Output 01/07/17 01/07/17 01/08/17 14:59 22:59 06:59 Intake Total 120 ml Balance 120 ml Exam General: No acute signs or symptoms of distress Eyes: pupils equal round, Anicteric sclera Neck: JVD seen more on right neck area Cardiac: Heart murmur auscultated. Regular rate Pulmonary: Diminished bilaterally at lung bases GI: Slightly protuberant, nontender Extremities: Edema noted bilateral lower extremities +3 Skin: Clean dry and intact Neurologic: Alert to person place and time and situation Results Result Diagram: 01/08/1770401/08/17704 Results 24 hrs Laboratory Tests Test 01/07/17 20:27 01/07/17 22:50 01/08/17 07:05 Activated Partial Thromboplast Time 46.5 H Alanine Aminotransferase (ALT/SGPT) 42 Albumin 3.4 Albumin/Globulin Ratio 0.87 Alkaline Phosphatase 268 H Anion Gap 16 15 Aspartate Amino Transf (AST/SGOT) 52 H B-Type Natriuretic Peptide 23120 H Basophils # 0.0 0.0 Basophils % 0.5 0.6 Blood Morphology Comment Blood Urea Nitrogen 50 H 52 H Calcium Level 8.0 L 8.0 L Carbon Dioxide Level 30 29 Chloride Level 99 101 Creatinine 2.83 H 2.38 H Direct Bilirubin 0.00 Eosinophils # 0.1 0.1 Eosinophils % 1.0 1.1 Globulin 3.90 H Glucose Level 128 88 # Hematocrit 25.2 L 22.9 L Hemoglobin 8.3 L 7.8 L INR International Normalized Ratio 1.72 Indirect Bilirubin 0.2 Lymphocytes # 1.0 1.4 Lymphocytes % 19.8 29.9 Mean Corpuscular Hemoglobin 30.2 30.9 Mean Corpuscular Hemoglobin Concent 32.8 33.8 Mean Corpuscular Volume 92.0 91.5 Mean Platelet Volume 9.4 9.4 Monocytes # 0.5 0.5 Monocytes % 10.6 10.8 Neutrophils # 3.5 2.8 Neutrophils % 68.1 57.6 Nucleated Red Blood Cells # 0.0 0.0 Nucleated Red Blood Cells % 0.0 0.0 Platelet Count 269 # 260 Potassium Level 4.6 4.0 Prothrombin Time 20.3 #H Prothrombin Time Ratio 1.6 Red Blood Count 2.74 L 2.51 L Red Cell Distribution Width 17.5 H 17.3 H Sodium Level 140 141 Total Bilirubin 0.2 Total Protein 7.3 Troponin I 0.019 White Blood Count 5.1 # 4.9 Urine Bilirubin NEGATIVE Urine Clarity CLEAR Urine Color YELLOW Urine Glucose NEGATIVE Urine Hemoglobin NEGATIVE Urine Ketones TRACE Urine Leukocyte Esterase NEGATIVE Urine Nitrite NEGATIVE Urine Specific [place] <=1.005 L Urine Total Protein NEGATIVE Urine Urobilinogen 0.2 E.U./dL Urine pH 6.0 Magnesium Level 2.4 Phosphorus Level 3.7 Medications Medications Current Medications Allopurinol (Zyloprim) 300 mg DAILY PO Last administered on 01/08/17 09:23; Admin Dose 300 MG; Start 01/08/17 at 09:00 Amiodarone HCl (Cordarone) 200 mg DAILY PO Last administered on 01/08/17 09:23 ; Admin Dose 200 MG; Start 01/08/17 at 09:00 Atorvastatin Calcium (Lipitor) 40 mg HS PO ; Start 01/08/17 at 21:00 Bumetanide (Bumex) 1 mg BID PO Last administered on 01/08/17 11:44; Admin Dose 1 MG; Start 01/08/17 at 09:00 Famotidine (Pepcid) 20 mg DAILY PO Last administered on 01/08/17 09:23; Admin Dose 20 MG; Start 01/08/17 at 09:00 Isosorbide Mononitrate (Imdur) 30 mg DAILY PO ; Start 01/08/17 at 09:00 Heparin Sodium (Porcine) (Heparin (5000 Units/0.5 ml)) 5,000 unit BID SC Last administered on 01/08/17 09:25; Admin Dose 5,000 UNIT; Start 01/08/17 at 09:00 ANDIE ISIDRO Jan 08, 2017 15:37
[2017-01-08 18:38] LABS: ADD UMIC NO; URINE BILIRUBIN (Dip) NEGATIVE (NEGATIVE); URINE BLOOD (Dip) NEGATIVE (NEGATIVE); URINE COLOR LT. YELLOW (YELLOW); URINE GLUCOSE (Dip) NEGATIVE (NEGATIVE); URINE KETONES (Dip) NEGATIVE (NEGATIVE); URINE LEUKOCYTE ESTERASE (Dip) NEGATIVE (NEGATIVE); URINE NITRITE (Dip) NEGATIVE (NEGATIVE); URINE TOTAL PROTEIN (Dip) NEGATIVE (NEGATIVE); URINE UROBILINOGEN (Dip) 0.2 E.U./dL (0.1-1.0)
--- NOTE | 2017-01-08 18:44 | CONS ---
DATE OF ADMISSION: 01/07/2017 DATE OF CONSULTATION: 01/08/2017 TYPE OF CONSULTATION: Nephrology. REASON FOR CONSULTATION: Acute kidney injury. REQUESTING PHYSICIAN: Dr. Wong. HISTORY OF PRESENT ILLNESS: This is a 66-year-old male with a past medical history of CKD stage III B/IV, with a baseline creatinine of 1.6 to 2 mg/dL, history of CHF, cardiomyopathy with ejection fr action of 35%, history of AFib, dyslipidemia, diabetes, previous history of colon cancer, gastric ca ncer, presents to [facility] with worsening shortness of breath. The patient states over t he last several days he is noted to have increasing shortness of breath, lower extremity edema. The patient stated the symptoms are progressively worsening. As a result, he came into the emergency r oom for evaluation. When he came to the ER, the patient noted to have blood pressure 99/59, heart r ate 60, respiration 18. Patient had a chest x-ray performed which showed asymmetric pulmonary edema associated with CHF. In the emergency room, the patient was given diuretic therapy and admitted to telemetry for continued care. In terms of the patient's renal history, the patient has underlying CKD with a renal function fluctu ating between 1.9 to 2 mg/dL. The patient's recent hospitalization 1 month ago for CHF exacerbation showed a decrease in renal function which stabilized around 3 mg/dL. The patient now presents with a creatinine of 2.4 mg/dL. Denies any frothy urine, any hemoptysis, hematemesis, or hematochezia. PAST MEDICAL HISTORY: As stated above, history of CHF, history of CKD stage IIIB/IV, history of [place], hypertension, AFib, history of colon and gastric CA. PAST SURGICAL HISTORY: Positive for gastric and colon cancer. SOCIAL HISTORY: Does not drink, smoke or do drugs. FAMILY HISTORY: Noncontributory. MEDICATIONS: The patient's medications were reconciled. ALLERGIES: NO KNOWN DRUG ALLERGIES. PHYSICAL EXAMINATION: VITAL SIGNS: Blood pressure is currently 99/59, not heart rate is 62, respiration 18, temperature 9 8.6. HEENT: Head is normocephalic. Pupils are reactive to light. NECK: Supple. HEART: Regular rate. LUNGS: Show diminished breath sounds at the base. ABDOMEN: Soft, nontender to palpation. EXTREMITIES: Negative for clubbing, cyanosis. Positive edema. DERMATOLOGIC: No rashes. MUSCULOSKELETAL: No joint effusions. NEUROLOGIC: No change in exam. MEDICATIONS: The patient's medications have been reviewed. LABORATORY DATA: Shows a white count 4.9, hemoglobin 7.8, hematocrit 22.9, platelet count is 260. Sodium 141, potassium 4.0, chloride 101, BUN 52, creatinine 2.38. ASSESSMENT AND PLAN: 1. Nonoliguric acute kidney injury on top of stage IIIB/IV, with previous baseline creatinine aroun d 2 mg/dL. Etiology of acute kidney injury is likely secondary to cardiorenal syndrome. The patien t's previous 2D echo showed of cardiorenal pathophysiology with dilated IVC and severe tricuspid reg urgitation. The patient is currently clinically overloaded with pulmonary edema and lower extremity edema. Plan at this point is to continue diuretic therapy. Agree with Bumex 1 mg b.i.d. 2. Will monitor I's and O's closely. May need to up-titrate diuretics and/or add Metolazone in ord er to augment diuresis. Will monitor renal function closely during the hospital course. We will al so check a UA with microanalysis and check urine electrolytes. 3. Acute systolic, diastolic heart failure. The patient is currently on diuretic therapy. Will co ntinue followup with cardiology, monitor renal function closely. 4. Anemia. Continue to monitor hemoglobin and hematocrit levels. Will give Epogen as needed. 5. Mineral bone disorder. Will monitor calcium and phosphorus levels. 6. Pleural effusion, likely secondary to congestive heart failure exacerbation. Continue to monito r. 7. Acute respiratory failure secondary to congestive heart failure exacerbation. Continue medical management as stated above. 8. Atrial fibrillation, currently in sinus rhythm. Continue current medical management. 9. History of gastric and colon CA status post surgery and chemotherapy. 10. Pulmonary hypertension. Continue current medical management. 11. Possible pneumonia. Continue current antibiotic regimen. Thank you, Dr. Wong, for this interesting consultation. It will be a pleasure to follow patient sweetie golden lis throughout the hospital course. Dictated By: ANIL CONNOR DO NR/NTS Conf#: [id number] DID#: [id number] CC: RICK WONG MD;*EndCC*
[2017-01-08] MEDS: ATORVASTATIN 40 MG TAB PO SCH (20:56)
--- NOTE | 2017-01-08 21:15 | CONS ---
DATE OF ADMISSION: 01/07/2017 DATE OF CONSULTATION: 01/08/2017 TYPE OF CONSULTATION: Cardiology. REFERRING PHYSICIAN: Dr. Wong. REASON FOR CONSULTATION: Congestive heart failure. CHIEF COMPLAINT: Shortness of breath, lower extremity edema. HISTORY OF PRESENT ILLNESS: Thank you for this referral. History obtained from the patient and ritu m extensive review of the old chart, discussion with his , discussion with the staff. The patie nt also known to me from admission to the hospital previously and is an outpatient followup. This i s a pleasant 66-year-old gentleman with history of severe cardiomyopathy, possible coronary artery disease and MT, history of loculated pleural effusion, chronic kidney disease, paroxysmal at rial fibrillation, who has had increasing shortness of breath, lower extremity edema. The patient w as seen in my office a few days ago. At that time, his Bumex was increased and I was advised to com e to the emergency room if he does not improve. The patient said that over the weekend home and las t night his breathing got worse and he was having cough and shortness of breath when he was lying do wn. He came to the emergency room. No chest pain or pressure. He has lower extremity edema that h as been getting worse, although it appears to be more improved than a few days ago in the hospital. Currently, he is breathing better. PAST MEDICAL HISTORY: History of cardiomyopathy, ejection fraction of 35%, history of possible estefany nary artery disease, history of chronic kidney disease, paroxysmal atrial fibrillation, and history of liver cirrhosis, alcohol use in the past, history of gastric and colon cancer, status post surger y and chemo in the past, history of anemia, history of loculated pleural effusion. At the time unde rwent thoracentesis and chest tube placement by IR. PAST SURGICAL HISTORY: As above. SOCIAL HISTORY: The patient has smoked and drank in the past; however, has quit now. ALLERGIES: NO REPORTED ALLERGIES. MEDICATIONS AT HOME INCLUDE: 1. Eliquis. 2. Amiodarone. 3. Lipitor. 4. Carvedilol. 5. Imdur. 6. Bumex 2 mg p.o. b.i.d. 7. Pepcid. 8. ____. REVIEW OF SYSTEMS: As above-mentioned. ALLERGIES: NO KNOWN ALLERGY. REVIEW OF SYSTEMS: As above mentioned, denied all other except for above-mentioned. PHYSICAL EXAMINATION: VITAL SIGNS: Temperature 98, heart rate of 57, blood pressure 107/63, respiration rate of 18, satur ating 97%. HEENT: Normocephalic, atraumatic. Thin, cachectic gentleman. Pupils are equal. CARDIOVASCULAR: Regular rate and rhythm, systolic murmur. PULMONARY: With crackles at the base bilaterally. GASTROINTESTINAL: Soft. No rebound or guarding. Positive hepatomegaly. EXTREMITIES: Positive bilateral ankle edema. NEUROLOGIC: Awake and alert. PSYCHIATRIC: Appears to be calm and pleasant. LABORATORY: Sodium 141, potassium 4.0, BUN of 52, creatinine of 2.38, glucose of 88. Mag is 2.4, A ST of 52, ALT of 42. Troponin 0.019. ProBNP of 15,600. Albumin is 3.4. WBC of 4.9, hemoglobin 7. 8, platelets of 260. Chest x-ray was personally reviewed, which shows bilateral pleural effusions, right more than left. Review of the old chart showed echocardiogram done on 11/20/2016, which was p ersonally reviewed, showed ejection fraction of 35%. Atrial enlargement. PA pressure was 55 mmHg. Moderate to severe tricuspid insufficiency. Dilated IVC. EKG showed sinus bradycardia. Intravent ricular conduction delay. QRS width is about 120 milliseconds at this point. ASSESSMENT AND PLAN: 1. Congestive heart failure, acute on chronic, secondary to systolic dysfunction and possibly diast olic dysfunction as well. 2. Renal failure, acute on chronic. 3. History of severe cardiomyopathy. 4. Liver disease. 5. History of pulmonary hypertension. 6. History of bilateral pleural effusion with loculated pleural effusion. 7. Possible pneumonia. 8. Severe anemia. 9. History of paroxysmal atrial fibrillation. RECOMMENDATIONS: 1. Leandro is on hold now due to concern about her severe anemia. 2. History of possible coronary artery disease. 3. History of alcohol and tobacco use currently has quit. 4. We will hold off on any EMMIE inhibitor due to his renal failure at this point. We will check the lipid panel and adjust the statin as needed. I will continue with the current dose of Bumex 1 mg p .o. b.i.d. for now. Will order a CT of the chest to evaluate further fluid as well as pleural effus ion. Pulmonary consultation renal consultation will be done which has been asked to for. To be see n Dr. Anton as well as Dr. Jhaveri. Will continue to monitor closely in telemetry, correct elect rolytes as needed. Dictated By: COLIN BERGERON MD AV/NTS Conf#: [id number] DID#: [id number] CC: RICK WONG MD;*EndCC*
[2017-01-09] VITALS (12 sets, daily range): BP systolic 112–134; BP diastolic 64–89; PULSE 60–65; RESP 16–18
[2017-01-09 07:29] LABS: BASOPHILS % 0.6 % (0.0-2.0); EOSINOPHILS # 0.1 10^3/ul (0.0-0.5); HEMATOCRIT 24.6 % (42.0-52.0); HEMOGLOBIN 8.3 g/dl (14.0-18.0); LYMPHOCYTES # 1.7 10^3/ul (0.8-2.9); LYMPHOCYTES % 29.5 % (15.0-51.0); MEAN CORPUSCULAR HEMOGLOBIN 31.8 pg (29.0-33.0); MEAN CORPUSCULAR HGB CONC 33.8 g/dl (32.0-37.0); MEAN CORPUSCULAR VOLUME 94.2 fl (82.0-101.0); MEAN PLATELET VOLUME 9.6 fl (7.4-10.4); MONOCYTE # 0.7 10^3/ul (0.3-0.9); MONOCYTES % 11.7 % (0.0-11.0); NEUTROPHIL # 3.3 10^3/ul (1.6-7.5); NEUTROPHILS % 57.2 % (39.0-77.0); PLATELET COUNT 260 10^3/UL (140-440); RED BLOOD COUNT 2.61 10^6/ul (4.70-6.10); RED CELL DISTRIBUTION WIDTH 17.9 % (11.5-14.5); UNCORRECTED WBC 5.8 10^3/ul (4.8-10.8); WHITE BLOOD COUNT 5.8 10^3/ul (4.8-10.8)
[2017-01-09 07:33] LABS: CONDITION 1; LH ANALYZER COMMENTS 1
[2017-01-09 07:50] LABS: POTASSIUM 3.7 mmol/L (3.5-5.1)
[2017-01-09 07:53] LABS: CALCIUM 8.4 mg/dl (8.4-10.2); CREATININE 1.84 mg/dl (0.61-1.24)
[2017-01-09] MEDS: ISOSORBIDE MONONITRATE(SR)30 MG TAB PO SCH (08:45)
[2017-01-09] MEDS: ALLOPURINOL 300 MG TAB PO SCH (08:45)
[2017-01-09] MEDS: FAMOTIDINE 20 MG TAB PO SCH (08:45)
[2017-01-09] MEDS: BUMETANIDE 1 MG TAB PO SCH ×2 (08:45→20:03)
[2017-01-09] MEDS: AMIODARONE 200 MG TAB PO SCH (08:46)
[2017-01-09] MEDS: HEPARIN 5,000 UNIT/0.5 ML SYG SC SCH ×2 (08:46→20:08)
--- NOTE | 2017-01-09 09:26 | PN ---
DATE: 01/09/2017 CARDIOLOGY FOLLOWUP SUBJECTIVE: Discussed with the staff. Rhythm strip was reviewed. The patient remains in sinus rhy thm. Heart rate has remained stable and jose roberto. No chest pain or pressure. Breathing has improved now. Feels better today. No bleeding reported. MEDICATIONS: Reviewed, which include: 1. Lipitor. 2. Allopurinol. 3. Amiodarone 200. 4. Bumex 1 mg p.o. b.i.d. 5. Pepcid. 6. Imdur. PHYSICAL EXAMINATION: VITAL SIGNS: Temperature 98.5, heart rate of 58, blood pressure 124/64, respiratory rate of 17, sat urating 97%. HEENT: Normocephalic, atraumatic. Pupils are equal. CARDIOVASCULAR: Regular rate and rhythm, systolic murmur. PULMONARY: With crackles at the base. GASTROINTESTINAL: Soft, nontender. EXTREMITIES: Positive lower extremity edema. NEUROLOGIC: Awake and alert. Stable. PSYCHIATRIC: Appears to be calm and pleasant. LABORATORY: WBC of 5.8, hemoglobin 8.3, platelets of 260. Sodium 141, potassium 3.7, BUN of 44, cr eatinine 1.84, glucose of 86. CT was ordered, it is not done yet. ASSESSMENT AND PLAN: 1. Congestive heart failure, acute on chronic, secondary to severe systolic dysfunction. 2. Renal failure. 3. Severe cardiomyopathy, ejection fraction has been recorded about 35%. 4. History of liver disease. 5. History of pulmonary hypertension. 6. Bilateral pleural effusion. 7. Anemia 8. Paroxysmal atrial fibrillation. 9. Possible pneumonia. RECOMMENDATIONS: I will order a CT, awaiting results to be done. I will order a stool guaiac to ru le out any evidence of GI bleed. Pulmonary consultation has been asked as well. Follow the renal f unction. Dictated By: COLIN MANJARREZ/LANG Conf#: [id number] DID#: [id number]
--- NOTE | 2017-01-09 10:09 | RADRPT ---
PROCEDURE: CT CHEST WITHOUT CONTRAST CLINICAL INDICATION: Pleural effusion TECHNIQUE: Volumetrically acquired images of the thorax obtained without intravenous contrast were reformatted in the axial, coronal, and sagittal planes. CTDI = 8.4 mGy; DLP = 300.6 mGy-cm. One or more of the following dose reduction technique were used: Automatic exposure control, adjustment of the mA and/or kV according to patient size, and use of iterative reconstruction technique. COMPARISON: 11/27/2016. FINDINGS: LOWER NECK AND CHEST WALL: Heterogeneous thyroid gland is seen, nonspecific. AIRWAYS: The trachea and large airways are normal. Minimal bronchial wall thickening is seen. LUNGS: Smooth intralobular septal thickening seen on the right. Increased atelectasis on the right i s also new from prior study.. PLEURA: Large loculated effusion is seen in the right lung with associated atelectasis, increased in size when compared the prior study. Increase moderate left pleural effusion with associated atelec tasis. MEDIASTINUM: No mediastinal mass. LYMPH NODES: No significant axillary, hilar, or mediastinal lymphadenopathy by CT size criteria. CARDIAC: The heart size is normal. No pericardial effusion or thickening. VASCULAR: The main pulmonary artery measures 34 mm. Aortic and coronary atherosclerotic calcificat ions are present. There is relative hypodensity seen within the heart chambers/vascular structures which may suggest anemia. OSSEOUS: No suspicious osseous lesions. Scattered degenerative changes of the thoracic spine is vis ualized. Limited evaluation of the upper abdomen demonstrates mild ascites. IMPRESSION: 1. Interval increase in large loculated right pleural effusion with associated atelectasis. Interva l increase in moderate left pleural effusion with associated atelectasis. 2. Aortic and coronary atherosclerosis with cardiomegaly. Enlargement of the main pulmonary artery m ay suggest pulmonary arterial hypertension. 3. Mild ascites. 4. There is relative hypodensity seen within the heart chambers/vascular structures which may sugges t anemia. RPTAT:PP .Yobani Taylor MD, Date Time Electronically viewed and signed by .Yobani Taylor MD, MD on 01/09/2017 10:09 .V/
--- NOTE | 2017-01-09 11:05 | PN ---
DATE: 01/09/2017 SUBJECTIVE: The patient is clinically improved, is describing less shortness of breath, less swelli ng. No other acute events noted. No hemoptysis, hematemesis or hematochezia. OBJECTIVE: VITAL SIGNS: Blood pressure 124/64, respirations 17, pulse 58, temperature 98.5. I's and O's revie wed. HEENT: Head is normocephalic. NECK: Supple. HEART: Regular rate. LUNGS: Show diminished breath sounds at the bases. ABDOMEN: Soft, nontender to palpation. No rebound or guarding. EXTREMITIES: Negative for clubbing, cyanosis. No edema. DERMATOLOGIC: No rashes. MUSCULOSKELETAL: No joint effusions. NEUROLOGIC: No change in exam. MEDICATIONS: The patient's medications have been reviewed. LABORATORY DATA: Shows sodium 141, potassium 3.7, chloride 101, BUN 44, creatinine 1.84. White cou nt 5.8, hemoglobin 8.3, hematocrit 24.6, platelet count is 260. ASSESSMENT AND PLAN: 1. Nonoliguric acute kidney injury on top of chronic kidney disease stage IIIB/IV with previous bas michelle creatinine around 2 mg/dL. Etiology of acute kidney injury secondary to cardiorenal syndrome. The patient's renal function is improving with diuretic therapy. At this point, continue current treatment plan, supportive care, renally dose all meds. 2. Acute systolic, diastolic heart failure. Continue current diuretic regimen. The patient is cli nically improving. Follow up with cardiology. 3. Anemia of chronic disease. Continue to monitor hemoglobin and hematocrit levels. We will give Epogen as needed. 4. Mineral bone disorder. Continue to monitor calcium and phosphorus levels. 5. Pleural effusion secondary to congestive heart failure. Continue to monitor. 6. Acute respiratory failure secondary to congestive heart failure. The patient clinically improvi ng. Continue current treatment plan. 7. Atrial fibrillation, currently in sinus rhythm. Continue medical management. 8. Pulmonary hypertension. Continue current treatment plan 9. History of gastric and colon carcinoma. Dictated By: ANIL PERALES/LANG Conf#: [id number] DID#: [id number]
--- NOTE | 2017-01-09 11:28 | PN ---
Date/Time of Note Date/Time of Note DATE: 01/09/17 TIME: 11:25 Assessment/Plan VTE Prophylaxis VTE Prophylaxis Intervention: heparin Lines/Catheters IV [facility] Peripheral IV Urinary Cath still in place: No Assessment/Plan Chief Complaint/Hosp Course Assessment and plan 1. Acute on chronic CHF. Patient with most recent echocardiogram in 11/20/2016 with EF of 35% with stage III to stage IV diastolic dysfunction. Responding well to Bumex drip. Continue 2. Pulmonary hypertension. Patient seen with PASP of 55 mmHg. Patient also noted with severe tricuspid regurgitation. Continue on diuretic. Follow-up with cardiology recommendations 3. Bilateral pleural effusion secondary to decompensated CHF. Continue on diuretic. Monitor renal panel. Thoracentesis if respiratory status continues to deteriorate 4. Suspect pneumonia. Continue on antibiotic 5. Cardiomyopathy with ejection fraction of 35%. Continue optimization with cardiovascular medications 6. Decompensated liver disease with history of coagulopathy. Monitor H&H. Paracentesis prn 7. Anemia of chronic disease. Monitor H&H. Transfuse PRBC as needed 8. Paroxysmal fibrillation. Stable at present. Continue telemetry monitoring 9. History of gastric and colon cancer. Patient status post surgery and chemotherapy. No active issue at this time. We'll monitor 10. Acute on chronic kidney disease. Monitor renal panel. diuretic per nephrology. 11. Abdominal Ascites. Plan for paracentesis Disposition and plan: Responding well to Bumex medication. Continue on diuretic. Plan for paracentesis for abdominal ascites. Discharge him medically stable and cleared by consultants Discussed plan of care with Dr. Adamson Problems: Subjective 24 Hr Interval Summary Free Text/Dictation Less shortness of breath at this time. Still reports having some abdominal distention Exam/Review of Systems Vital Signs Vitals Vital Signs Date Time Temp Pulse Resp B/P Pulse Ox O2 Delivery O2 Flow Rate FiO2 01/09/17 09:31 65 01/09/17 08:20 Nasal Cannula 2.0 01/09/17 08:17 98.5 17 124/64 97 Intake and Output 01/08/17 01/08/17 01/09/17 15:00 23:00 07:00 Intake Total 520 ml 500 ml Output Total 1250 ml Balance -730 ml 500 ml Exam General: No acute signs or symptoms of distress Eyes: pupils equal round, Anicteric sclera Neck: JVD seen more on right neck area Cardiac: Heart murmur auscultated. Regular rate Pulmonary: Diminished bilaterally at lung bases GI: protuberant. minimally tender Extremities:less edema BLE Skin: Clean dry and intact Neurologic: Alert to person place and time and situation Results Result Diagram: 01/09/17 0651 01/09/17 0651 Results 24 hrs Laboratory Tests Test 01/08/17 18:20 01/09/17 06:51 Urine Bilirubin NEGATIVE Urine Clarity CLEAR Urine Color LT. YELLOW Urine Glucose NEGATIVE Urine Hemoglobin NEGATIVE Urine Ketones NEGATIVE Urine Leukocyte Esterase NEGATIVE Urine Nitrite NEGATIVE Urine Random Creatinine 43.23 Urine Random Sodium 67 Urine Specific [place] 1.010 Urine Total Protein Urine Urobilinogen 0.2 E.U./dL Urine pH 5.5 Anion Gap 14 Basophils # 0.0 Basophils % 0.6 Blood Morphology Comment Blood Urea Nitrogen 44 H Calcium Level 8.4 Carbon Dioxide Level 30 Chloride Level 101 Creatinine 1.84 H Eosinophils # 0.1 Eosinophils % 1.0 Glucose Level 86 Hematocrit 24.6 L Hemoglobin 8.3 L Lymphocytes # 1.7 Lymphocytes % 29.5 Mean Corpuscular Hemoglobin 31.8 Mean Corpuscular Hemoglobin Concent 33.8 Mean Corpuscular Volume 94.2 Mean Platelet Volume 9.6 Monocytes # 0.7 Monocytes % 11.7 H Neutrophils # 3.3 Neutrophils % 57.2 Nucleated Red Blood Cells # 0.0 Nucleated Red Blood Cells % 0.0 Platelet Count 260 Potassium Level 3.7 Red Blood Count 2.61 L Red Cell Distribution Width 17.9 H Sodium Level 141 White Blood Count 5.8 Medications Medications Current Medications Allopurinol (Zyloprim) 300 mg DAILY PO Last administered on 01/09/17 08:45; Admin Dose 300 MG; Start 01/08/17 at 09:00 Amiodarone HCl (Cordarone) 200 mg DAILY PO Last administered on 01/09/17 08:46 ; Admin Dose 200 MG; Start 01/08/17 at 09:00 Atorvastatin Calcium (Lipitor) 40 mg HS PO Last administered on 01/08/17 20:56 ; Admin Dose 40 MG; Start 01/08/17 at 21:00 Bumetanide (Bumex) 1 mg BID PO Last administered on 01/09/17 08:45; Admin Dose 1 MG; Start 01/08/17 at 09:00 Famotidine (Pepcid) 20 mg DAILY PO Last administered on 01/09/17 08:45; Admin Dose 20 MG; Start 01/08/17 at 09:00 Isosorbide Mononitrate (Imdur) 30 mg DAILY PO Last administered on 01/09/17 08 :45; Admin Dose 30 MG; Start 01/08/17 at 09:00 Heparin Sodium (Porcine) (Heparin (5000 Units/0.5 ml)) 5,000 unit BID SC Last administered on 01/08/17 21:00; Admin Dose 5,000 UNIT; Start 01/08/17 at 09:00 ANDIE ISIDRO Jan 09, 2017 11:28
--- NOTE | 2017-01-09 12:06 | CONS ---
DATE OF ADMISSION: 01/07/2017 DATE OF CONSULTATION: TYPE OF CONSULTATION: Pulmonary. REASON FOR CONSULTATION: Pleural effusions and shortness of breath. Thank you, Dr. Macias, for this consultation. 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 He denies any fever or chills. No chest pain or palpitations. Mild ort hopnea, but no PND. PAST MEDICAL HISTORY: Cardiomyopathy with ejection fraction of 35%, history of coronary artery dise ase, hypertension, hyperlipidemia, history of cirrhosis with a prior history of gastric and colon ca ncer. ALLERGIES: NO KNOWN ALLERGIES. SOCIAL HISTORY: Ex-smoker, no alcohol, no history of drug use. FAMILY HISTORY: Noncontributory. SYSTEMS REVIEW: A 12 point review of systems negative other than that mentioned above. PHYSICAL EXAMINATION: GENERAL: Elderly-appearing gentleman, appears comfortable at rest, no acute distress. VITAL SIGNS: Currently afebrile, pulse is 67, blood pressure 124/64, O2 saturation 96% on 2 L nasal cannula. NECK: Supple. No JVD or lymphadenopathy. CARDIAC: S1, S2, no added sounds or murmurs. CHEST: Diminished air entry bilaterally. ABDOMEN: Soft, mildly distended, palpable ascites. EXTREMITIES: No cyanosis, clubbing, edema +1. NEUROLOGIC: Grossly intact. LABORATORY DATA: White count 5.8, hemoglobin 8.3, platelets of 260. BUN 44, creatinine 1.84. INR was 1.72. Urinalysis unremarkable. DIAGNOSTIC DATA: CHEST: Showed a loculated right pleural effusion, small to moderate left pleural effusion, mild ascites. IMPRESSION AND PLAN: 1. Cirrhosis from alcoholic liver disease. 2. History of colon cancer. 3. Loculated pleural effusion with history of a pigtail catheter drainage. 4. History of cardiomyopathy, decreased ejection fraction. The patient will require: 1. Continue diuretics. 2. I would hold off on thoracentesis for now. 3. Consider paracentesis of abdominal fluid with ascitic fluid cytology to exclude ongoing malignan cy. Dictated By: JACQUELIN MARSHALL/LANG Conf#: [id number] DID#: [id number]
[2017-01-09] MEDS ORDERED: LIDOCAINE 1% (MPF) 5 ML VIAL ONE (14:44)
[2017-01-09 15:55] LABS: FLUID AMYLASE 30 U/L; FLUID TYPE ABDOMINAL FLUID
[2017-01-09 15:56] LABS: FLUID LD 271 U/L; FLUID TOTAL PROTEIN 3.6 g/dl; FLUID TYPE ABDOMINAL FLUID
--- NOTE | 2017-01-09 16:14 | RADRPT ---
PROCEDURE: Ultrasound guided paracentesis. CLINICAL INDICATION: Ascites and shortness of breath. COMPARISON: 11/24/2016. TECHNIQUE: The risks, benefits, and alternatives were explained to the patient and/or the patient's family, inc luding but not limited to bleeding, infection, pain, visceral or vascular damage, shock, and . The patient and/or the patient's family understood the risks and the alternatives and wished to pro ceed with the procedure. Informed written consent was obtained. A procedural time out was performed . The patient's name, date of , and procedure to be performed were verified. Utilizing ultrasound guidance, optimal location for entry to the peritoneal cavity was ascertained. The overlying skin was prepped and draped in the usual sterile fashion. Approximately 10 ml of 1% Xylocaine was injected locally for pain control. Using ultrasound guidance, an 8 [place] catheter wa s introduced into the peritoneal cavity in the right lower quadrant without difficulty. FINDINGS: Initial images demonstrate ascites. Approximately 0.825 liters of serous fluid was aspirated and se nt for laboratory analysis. The patient tolerated the procedure well without complication. IMPRESSION: 1. Successful ultrasound-guided paracentesis. RPTAT: QQ .Adrian Sosa MD, Date Time Electronically viewed and signed by .Adrian Sosa MD, on 01/09/2017 16:14 .R/
[2017-01-09 16:34] LABS: FLUID TYPE ABDOMINAL
[2017-01-09 16:35] LABS: FLUID APPEARANCE CLOUDY; FLUID LYMPHOCYTES 63 %; FLUID NEUTROPHILS 11 %; FLUID WBC'S 313 /cmm
[2017-01-09 16:36] LABS: FLUID MONOCYTES 26 %
[2017-01-09] MEDS: ATORVASTATIN 40 MG TAB PO SCH (20:03)
[2017-01-10] VITALS (12 sets, daily range): BP systolic 96–133; BP diastolic 58–71; PULSE 58–66; RESP 14–17
[2017-01-10 08:16] LABS: BASOPHILS % 0.6 % (0.0-2.0); EOSINOPHILS % 0.9 % (0.0-7.0); HEMATOCRIT 25.3 % (42.0-52.0); HEMOGLOBIN 8.4 g/dl (14.0-18.0); LYMPHOCYTES # 1.7 10^3/ul (0.8-2.9); LYMPHOCYTES % 31.1 % (15.0-51.0); MEAN CORPUSCULAR HEMOGLOBIN 30.7 pg (29.0-33.0); MEAN CORPUSCULAR HGB CONC 33.2 g/dl (32.0-37.0); MEAN CORPUSCULAR VOLUME 92.5 fl (82.0-101.0); MEAN PLATELET VOLUME 9.5 fl (7.4-10.4); MONOCYTE # 0.6 10^3/ul (0.3-0.9); MONOCYTES % 10.8 % (0.0-11.0); NEUTROPHIL # 3.1 10^3/ul (1.6-7.5); NEUTROPHILS % 56.6 % (39.0-77.0); PLATELET COUNT 245 10^3/UL (140-440); RED BLOOD COUNT 2.74 10^6/ul (4.70-6.10); RED CELL DISTRIBUTION WIDTH 17.2 % (11.5-14.5); UNCORRECTED WBC 5.4 10^3/ul (4.8-10.8); WHITE BLOOD COUNT 5.4 10^3/ul (4.8-10.8)
[2017-01-10 08:19] LABS: CONDITION 1; LH ANALYZER COMMENTS 1
[2017-01-10 08:37] LABS: ALBUMIN 3.1 g/dl (3.3-4.9); POTASSIUM 3.8 mmol/L (3.5-5.1)
[2017-01-10 08:39] LABS: BILIRUBIN,INDIRECT 0.5 mg/dl (0-1.1); BILIRUBIN,TOTAL 0.5 mg/dl (0.2-1.3); CREATININE 1.58 mg/dl (0.61-1.24)
[2017-01-10 08:40] LABS: ALBUMIN/GLOBULIN RATIO 0.81; CALCIUM 8.5 mg/dl (8.4-10.2); TOTAL PROTEIN 6.9 g/dl (6.1-8.1)
[2017-01-10] MEDS: HEPARIN 5,000 UNIT/0.5 ML SYG SC SCH ×2 (09:00→21:10)
[2017-01-10] MEDS: BUMETANIDE 1 MG TAB PO SCH ×2 (09:50→21:08)
[2017-01-10] MEDS: ISOSORBIDE MONONITRATE(SR)30 MG TAB PO SCH (09:51)
[2017-01-10] MEDS: ALLOPURINOL 300 MG TAB PO SCH (09:51)
[2017-01-10] MEDS: AMIODARONE 200 MG TAB PO SCH (09:51)
[2017-01-10] MEDS: FAMOTIDINE 20 MG TAB PO SCH (09:51)
--- NOTE | 2017-01-10 10:41 | PN ---
DATE: 01/10/2017 SUBJECTIVE: The patient is stable, no shortness of breath. No fevers, chills. No other events not ed. OBJECTIVE: VITAL SIGNS: Blood pressures 116/65, respiration 14, pulse 62, temperature 98.7. HEENT: Head is normocephalic. NECK: Supple. HEART: Regular rate. LUNGS: Show diminished breath sounds at base. ABDOMEN: Soft, nontender to palpation. No rebound or guarding. EXTREMITIES: Negative for clubbing, cyanosis, no edema. DERMATOLOGIC: No rashes. MUSCULOSKELETAL: No joint effusions. NEUROLOGIC: No change in exam. MEDICATIONS: The patient's medications have been reviewed. LABORATORY DATA: Shows sodium 142, potassium 3.8, chloride 100, BUN 37, creatinine 1.58, white coun t 5.4, hemoglobin 8.4, hematocrit 25.3, and platelet count of 245. ASSESSMENT AND PLAN: 1. Nonoliguric acute kidney injury on top of chronic kidney disease stage IIIB/IV with previous bas michelle creatinine around 2 mg/dL. Etiology of acute kidney injury is secondary to hemodynamics, card iorenal syndrome. Renal function has improved with diuretic therapy, continue current treatment alyssa n, supportive care, renally dose all meds. 2. Acute systolic, diastolic heart failure. The patient clinically improving. Continue current ar dical management. Follow up with cardiology. 3. Anemia of chronic disease. Continue to monitor hemoglobin levels. Continue Epogen as needed. 4. Mineral bone disorder. Continue to monitor calcium and phosphorus levels. 5. Pleural effusions secondary to congestive heart failure. Continue to monitor. 6. Acute respiratory failure secondary to congestive heart failure, clinically improving, currently stable on room air. 7. Atrial fibrillation, currently in sinus rhythm. Continue current treatment plan. 8. History of gastric and colon carcinoma. Dictated By: ANIL PERALES/LANG Conf#: [id number] DID#: [id number]
--- NOTE | 2017-01-10 13:54 | PN ---
Date/Time of Note Date/Time of Note DATE: 01/10/17 TIME: 13:49 Assessment/Plan VTE Prophylaxis VTE Prophylaxis Intervention: SCD's Lines/Catheters IV [facility]ter Type (from [facility]): Peripheral IV Urinary Cath still in place: No Assessment/Plan Chief Complaint/Hosp Course Assessment and plan 1. Acute on chronic CHF. Patient with most recent echocardiogram in 11/20/2016 with EF of 35% with stage III to stage IV diastolic dysfunction. Responding well to Bumex drip. Continue 2. Pulmonary hypertension. Patient seen with PASP of 55 mmHg. Patient also noted with severe tricuspid regurgitation. Continue on diuretic. Follow-up with cardiology recommendations 3. Bilateral pleural effusion secondary to decompensated CHF. Continue on diuretic. Monitor renal panel. Thoracentesis if respiratory status continues to deteriorate 4. Suspect pneumonia. Continue on antibiotic 5. Cardiomyopathy with ejection fraction of 35%. Continue optimization with cardiovascular medications 6. Decompensated liver disease with history of coagulopathy. Monitor H&H. s/p paracentesis. 7. Anemia of chronic disease. Monitor H&H. Transfuse PRBC as needed 8. Paroxysmal fibrillation. Stable at present. Continue telemetry monitoring 9. History of gastric and colon cancer. Patient status post surgery and chemotherapy. No active issue at this time. We'll monitor 10. Acute on chronic kidney disease. Monitor renal panel. diuretic per nephrology. 11. Abdominal Ascites. s/p paracentesis with good response. Disposition and plan: Responding well to Bumex medication. Continue on diuretic.s/p paracentesis for abdominal ascites. Renal function appears to be improving. d/c when medically stable and cleared by consultants Discussed plan of care with Dr. Adamson Problems: Subjective 24 Hr Interval Summary Free Text/Dictation no s/s of distress. comfortable at this time Exam/Review of Systems Vital Signs Vitals Vital Signs Date Time Temp Pulse Resp B/P Pulse Ox O2 Delivery O2 Flow Rate FiO2 01/10/17 12:46 97.7 61 16 114/62 98 01/10/17 03:45 Room Air 01/09/17 19:28 2.0 Intake and Output 01/09/17 01/09/17 01/10/17 15:00 23:00 07:00 Intake Total 850 ml Output Total 1025 ml 1600 ml Balance -1025 ml -750 ml Exam General: No acute signs or symptoms of distress Eyes: pupils equal round, Anicteric sclera Neck: JVD seen more on right neck area Cardiac: Heart murmur auscultated. Regular rate Pulmonary: Diminished bilaterally at lung bases GI: soft, nontender Extremities:less edema BLE Skin: Clean dry and intact Neurologic: Alert to person place and time and situation Results Result Diagram: 01/10/17 0720 01/10/17 0720 Results 24 hrs Laboratory Tests Test 01/09/17 14:40 01/10/17 07:20 Body Fluid Amylase 30 Body Fluid Appearance CLOUDY Body Fluid Color RED Body Fluid Lactate Dehydrogenase 271 Body Fluid Lymphocytes (%) 63 Body Fluid Monocytes % 26 Body Fluid Neutrophils % 11 Body Fluid RBC Body Fluid Total Protein 3.6 Body Fluid Type ABDOMINAL FLUID Body Fluid Volume 800.0 Body Fluid WBC 313 Alanine Aminotransferase (ALT/SGPT) 40 Albumin 3.1 L Albumin/Globulin Ratio 0.81 Alkaline Phosphatase 234 H Anion Gap 16 Aspartate Amino Transf (AST/SGOT) 43 B-Type Natriuretic Peptide 50703 H Basophils # 0.0 Basophils % 0.6 Blood Morphology Comment Blood Urea Nitrogen 37 H Calcium Level 8.5 Carbon Dioxide Level 30 Chloride Level 100 Creatinine 1.58 H Direct Bilirubin 0.00 Eosinophils # 0.0 Eosinophils % 0.9 Globulin 3.80 H Glucose Level 74 Hematocrit 25.3 L Hemoglobin 8.4 L Indirect Bilirubin 0.5 Lymphocytes # 1.7 Lymphocytes % 31.1 Magnesium Level 2.0 Mean Corpuscular Hemoglobin 30.7 Mean Corpuscular Hemoglobin Concent 33.2 Mean Corpuscular Volume 92.5 Mean Platelet Volume 9.5 Monocytes # 0.6 Monocytes % 10.8 Neutrophils # 3.1 Neutrophils % 56.6 Nucleated Red Blood Cells # 0.0 Nucleated Red Blood Cells % 0.0 Platelet Count 245 Potassium Level 3.8 Red Blood Count 2.74 L Red Cell Distribution Width 17.2 H Sodium Level 142 Total Bilirubin 0.5 Total Protein 6.9 White Blood Count 5.4 Medications Medications Current Medications Allopurinol (Zyloprim) 300 mg DAILY PO Last administered on 01/10/17 09:51; Admin Dose 300 MG; Start 01/08/17 at 09:00 Amiodarone HCl (Cordarone) 200 mg DAILY PO Last administered on 01/10/17 09:51 ; Admin Dose 200 MG; Start 01/08/17 at 09:00 Atorvastatin Calcium (Lipitor) 40 mg HS PO Last administered on 01/09/17 20:03 ; Admin Dose 40 MG; Start 01/08/17 at 21:00 Bumetanide (Bumex) 1 mg BID PO Last administered on 01/10/17 09:50; Admin Dose 1 MG; Start 01/08/17 at 09:00 Famotidine (Pepcid) 20 mg DAILY PO Last administered on 01/10/17 09:51; Admin Dose 20 MG; Start 01/08/17 at 09:00 Isosorbide Mononitrate (Imdur) 30 mg DAILY PO Last administered on 01/10/17 09 :51; Admin Dose 30 MG; Start 01/08/17 at 09:00 Heparin Sodium (Porcine) (Heparin (5000 Units/0.5 ml)) 5,000 unit BID SC Last administered on 01/10/17 09:00; Admin Dose 5,000 UNIT; Start 01/08/17 at 09:00 Carvedilol (Coreg) 1.5625 mg BID PO Last administered on 01/10/17 09:54; Admin Dose 1.5625 MG; Start 01/10/17 at 09:00 ANDIE ISIDRO Jan 10, 2017 13:54
--- NOTE | 2017-01-10 14:08 | PN ---
DATE: 01/10/2017 CARDIOLOGY FOLLOWUP SUBJECTIVE: The patient remains in sinus rhythm. No chest pain, feels much better. MEDICATIONS: Reviewed. PHYSICAL EXAMINATION: VITAL SIGNS: Temperature 99, heart rate of 60, blood pressure 133/71, respiratory rate of 17. Satu rating 96%. HEENT: Normocephalic, atraumatic. Pupils are equal. CARDIOVASCULAR: Regular rate and rhythm. Systolic murmur. PULMONARY: With minimal rhonchi at the base. GASTROINTESTINAL: Soft. EXTREMITIES: Diffuse edema, but improved. PSYCHIATRIC: Appears to be calm and pleasant. LABORATORY: WBC of 5.4, hemoglobin 8.4, platelets 245. Abdominal paracentesis done yesterday, ____ _ volume was removed. CT of the chest done yesterday shows increasing large loculated right pleural effusion with associated atelectasis. Increasing moderate left pleural effusion and associated ate lectasis. Aortic and coronary atherosclerosis with cardiomegaly noted in the left main pulmonary ar julito. hypodensities seen within the heart chambers. suggests anemia. ASSESSMENT AND PLAN: 1. Congestive heart failure, acute on chronic, secondary to systolic heart failure. 2. Renal failure. 3. Severe cardiomyopathy. 4. Cirrhosis and liver disease. 5. Status post paracentesis. 6. Bilateral pleural effusion. 7. Anemia. 8. Paroxysmal atrial fibrillation. 9. Pneumonia. RECOMMENDATIONS: I have ordered stool guaiac to be done to rule out any evidence of any GI bleed. If there is any GI bleeding we will consider resuming Eliquis. Amiodarone will be continued. Low d ose of carvedilol will be added as well. Diuresis will be continued at the current dose. Dictated By: COLIN BERGERON MD AV/NTS Conf#: [id number] DID#: [id number] CC: JACQUELIN MANUEL MD;*End*
[2017-01-10 16:21] LABS: MICROALBUMIN 0.8 mg/dL
[2017-01-10] MEDS: ATORVASTATIN 40 MG TAB PO SCH (21:08)
[2017-01-11] VITALS (13 sets, daily range): BP systolic 98–111; BP diastolic 58–62; PULSE 60–112; RESP 16–18
[2017-01-11 08:06] LABS: BASOPHILS % 0.5 % (0.0-2.0); EOSINOPHILS % 0.9 % (0.0-7.0); HEMOGLOBIN 7.2 g/dl (14.0-18.0); LYMPHOCYTES # 1.7 10^3/ul (0.8-2.9); LYMPHOCYTES % 31.5 % (15.0-51.0); MEAN CORPUSCULAR HEMOGLOBIN 33.2 pg (29.0-33.0); MEAN CORPUSCULAR HGB CONC 34.3 g/dl (32.0-37.0); MEAN CORPUSCULAR VOLUME 96.8 fl (82.0-101.0); MEAN PLATELET VOLUME 9.2 fl (7.4-10.4); MONOCYTE # 0.6 10^3/ul (0.3-0.9); MONOCYTES % 11.8 % (0.0-11.0); NEUTROPHILS % 55.3 % (39.0-77.0); PLATELET COUNT 221 10^3/UL (140-440); RED BLOOD COUNT 2.18 10^6/ul (4.70-6.10); UNCORRECTED WBC 5.4 10^3/ul (4.8-10.8); WHITE BLOOD COUNT 5.4 10^3/ul (4.8-10.8)
[2017-01-11 08:08] LABS: IRON 41 ug/dl (35-150)
[2017-01-11 08:14] LABS: ALBUMIN 2.9 g/dl (3.3-4.9); POTASSIUM 3.6 mmol/L (3.5-5.1)
[2017-01-11 08:16] LABS: CREATININE 1.55 mg/dl (0.61-1.24)
[2017-01-11 08:17] LABS: ALBUMIN/GLOBULIN RATIO 0.8; BILIRUBIN,INDIRECT 0.4 mg/dl (0-1.1); BILIRUBIN,TOTAL 0.4 mg/dl (0.2-1.3); TOTAL PROTEIN 6.5 g/dl (6.1-8.1)
[2017-01-11 08:18] LABS: TOTAL IRON BINDING CAPACITY 204 ug/dl (241-421)
[2017-01-11 08:21] LABS: CONDITION 1; LH ANALYZER COMMENTS 1
[2017-01-11] MEDS: HEPARIN 5,000 UNIT/0.5 ML SYG SC SCH ×2 (09:29→20:10)
[2017-01-11] MEDS: BUMETANIDE 1 MG TAB PO SCH ×2 (09:29→20:09)
[2017-01-11] MEDS: ALLOPURINOL 300 MG TAB PO SCH (09:29)
[2017-01-11] MEDS: FAMOTIDINE 20 MG TAB PO SCH (09:29)
[2017-01-11] MEDS: AMIODARONE 200 MG TAB PO SCH (09:31)
--- NOTE | 2017-01-11 09:31 | PN ---
DATE: 01/11/2017 SUBJECTIVE: The patient yesterday had paracentesis, tolerated well. The patient is currently in no acute distress. There is no fevers, chills, nausea, vomiting. OBJECTIVE: VITAL SIGNS: Blood pressure 105/60, respirations 17, pulse 65, temperature 98.9. HEENT: Head is normocephalic. NECK: Supple. HEART: Regular rate. LUNGS: Show diminished breath sounds at the base. ABDOMEN: Soft, nontender to palpation. No rebound or guarding. EXTREMITIES: Negative for clubbing, cyanosis, no edema. DERMATOLOGIC: No rashes. MUSCULOSKELETAL: No joint effusions. NEUROLOGIC: No focal deficits. LABORATORY DATA: Shows a white count 5.4, hemoglobin 7.2, hematocrit 21.0, platelet count 221. Sod ium 140, potassium 3.6, chloride 100, BUN 33, creatinine 1.55. ASSESSMENT AND PLAN: 1. Nonoliguric acute kidney injury on top of chronic kidney disease stage IIIB/IV with previous bas michelle creatinine around 2.0 mg/dL. Etiology of acute kidney injury secondary to hemodynamics, card iorenal syndrome, questionable intra-abdominal hypertension. The patient is status post thoracentes is. The patient is also on diuretic therapy, responding well. Renal function has been improving. At this point, continue current treatment plan, supportive care, renally dose all meds, continue cur rent diuretic regimen. 2. Acute systolic, diastolic heart failure. The patient is improving. Continue current medical ma nagement and follow up with cardiology. Continue diuretic regimen. 3. Anemia of chronic disease. Hemoglobin levels will be monitored. Will give one dose of Epogen. 4. Abdominal ascites. The patient is status post paracentesis. We will follow up cultures. 5. Pleural effusion secondary to congestive heart failure. Continue to monitor. 6. Acute respiratory failure secondary to congestive heart failure, improving. 7. Atrial fibrillation. Continue current treatment plan. 8. History of gastric and colon carcinoma. Dictated By: ANIL PERALES/LANG Conf#: [id number] DID#: [id number]
[2017-01-11] MEDS: ISOSORBIDE MONONITRATE(SR)30 MG TAB PO SCH (09:33)
[2017-01-11] MEDS: ACETAMINOPHEN 325 MG TAB PO PRN (14:15)
[2017-01-11 15:48] LABS: HEMATOCRIT 20.4 % (42.0-52.0)
[2017-01-11 15:53] LABS: HEMOGLOBIN 6.7 g/dl (14.0-18.0)
--- NOTE | 2017-01-11 16:16 | PN ---
Date/Time of Note Date/Time of Note DATE: 01/11/17 TIME: 16:14 Assessment/Plan VTE Prophylaxis VTE Prophylaxis Intervention: SCD's Lines/Catheters IV [facility]ter Type (from [facility] Saline Lock Urinary Cath still in place: No Assessment/Plan Chief Complaint/Hosp Course Assessment and plan 1. Acute on chronic CHF. Patient with most recent echocardiogram in 11/20/2016 with EF of 35% with stage III to stage IV diastolic dysfunction. Responding well to Bumex drip. Continue 2. Pulmonary hypertension. Patient seen with PASP of 55 mmHg. Patient also noted with severe tricuspid regurgitation. Continue on diuretic. Follow-up with cardiology recommendations 3. Bilateral pleural effusion secondary to decompensated CHF. Continue on diuretic. Monitor renal panel. Thoracentesis if respiratory status continues to deteriorate 4. Suspect pneumonia. Continue on antibiotic 5. Cardiomyopathy with ejection fraction of 35%. Continue optimization with cardiovascular medications 6. Decompensated liver disease with history of coagulopathy. Monitor H&H. s/p paracentesis. 7. Anemia of chronic disease. Monitor H&H. worse today. Will transfuse 1 prbc. Will get GI consult 8. Paroxysmal fibrillation. Stable at present. Continue telemetry monitoring 9. History of gastric and colon cancer. Patient status post surgery and chemotherapy. No active issue at this time. We'll monitor 10. Acute on chronic kidney disease. Monitor renal panel. diuretic per nephrology. 11. Abdominal Ascites. s/p paracentesis with good response. Disposition and plan: Worsening anemia. transfuse 1 prbc. GI consult to follow Discussed plan of care with Dr. Adamson Problems: Subjective 24 Hr Interval Summary Free Text/Dictation no s/s of distress Exam/Review of Systems Vital Signs Vitals Vital Signs Date Time Temp Pulse Resp B/P Pulse Ox O2 Delivery O2 Flow Rate FiO2 01/11/17 16:11 64 01/11/17 12:02 98.5 17 111/62 96 01/10/17 08:30 Nasal Cannula 2.0 Intake and Output 01/10/17 01/10/17 01/11/17 15:00 23:00 07:00 Intake Total 2250 ml 500 ml Output Total 1450 ml Balance 2250 ml -950 ml Exam General: No acute signs or symptoms of distress Eyes: pupils equal round, Anicteric sclera Neck: JVD seen more on right neck area Cardiac: Heart murmur auscultated. Regular rate Pulmonary: Diminished bilaterally at lung bases GI: soft, nontender Extremities:less edema BLE Skin: Clean dry and intact Neurologic: Alert to person place and time and situation Results Result Diagram: 01/11/17 1533 01/11/17 0729 Results 24 hrs Laboratory Tests Test 01/11/17 06:39 01/11/17 07:29 01/11/17 15:33 Lab Scanned Report REFERENCE LAB Alanine Aminotransferase (ALT/SGPT) 38 Albumin 2.9 L Albumin/Globulin Ratio 0.80 Alkaline Phosphatase 219 H Anion Gap 15 Aspartate Amino Transf (AST/SGOT) 37 Basophils # 0.0 Basophils % 0.5 Blood Morphology Comment Blood Urea Nitrogen 33 H Calcium Level 8.0 L Carbon Dioxide Level 29 Chloride Level 100 Creatinine 1.55 H Direct Bilirubin 0.00 Eosinophils # 0.0 Eosinophils % 0.9 Ferritin 179.0 Globulin 3.60 H Glucose Level 77 Hematocrit 21.0 L 20.4 L Hemoglobin 7.2 L 6.7 *L Indirect Bilirubin 0.4 Iron Level 41 Lymphocytes # 1.7 Lymphocytes % 31.5 Mean Corpuscular Hemoglobin 33.2 H Mean Corpuscular Hemoglobin Concent 34.3 Mean Corpuscular Volume 96.8 Mean Platelet Volume 9.2 Monocytes # 0.6 Monocytes % 11.8 H Neutrophils # 3.0 Neutrophils % 55.3 Nucleated Red Blood Cells # 0.0 Nucleated Red Blood Cells % 0.0 Percent Iron Saturation 20 L Platelet Count 221 Potassium Level 3.6 Red Blood Count 2.18 #L Red Cell Distribution Width 17.0 H Sodium Level 140 Total Bilirubin 0.4 Total Iron Binding Capacity 204 L Total Protein 6.5 White Blood Count 5.4 Medications Medications Current Medications Allopurinol (Zyloprim) 300 mg DAILY PO Last administered on 01/11/17 09:29; Admin Dose 300 MG; Start 01/08/17 at 09:00 Amiodarone HCl (Cordarone) 200 mg DAILY PO Last administered on 01/11/17 09:31 ; Admin Dose 200 MG; Start 01/08/17 at 09:00 Atorvastatin Calcium (Lipitor) 40 mg HS PO Last administered on 01/10/17 21:08 ; Admin Dose 40 MG; Start 01/08/17 at 21:00 Bumetanide (Bumex) 1 mg BID PO Last administered on 01/11/17 09:29; Admin Dose 1 MG; Start 01/08/17 at 09:00 Famotidine (Pepcid) 20 mg DAILY PO Last administered on 01/11/17 09:29; Admin Dose 20 MG; Start 01/08/17 at 09:00 Isosorbide Mononitrate (Imdur) 30 mg DAILY PO Last administered on 01/11/17 09 :33; Admin Dose 30 MG; Start 01/08/17 at 09:00 Heparin Sodium (Porcine) (Heparin (5000 Units/0.5 ml)) 5,000 unit BID SC Last administered on 01/11/17 09:29; Admin Dose 5,000 UNIT; Start 01/08/17 at 09:00 Carvedilol (Coreg) 1.5625 mg BID PO Last administered on 01/11/17 09:33; Admin Dose 1.5625 MG; Start 01/10/17 at 09:00 Epoetin Rod (Epogen (Esrd)) 8,000 units ONCE SC ; Start 01/11/17 at 17:00; Stop 01/11/17 at 23:00 Acetaminophen (Tylenol Tab) 650 mg Q6H PRN PO PAIN AND OR ELEVATED TEMP Last administered on 01/11/17 14:15; Admin Dose 650 MG; Start 01/11/17 at 14:30 Ferrous Sulfate (Ferrous Sulfate (Ec)) 325 mg TID PO ; Start 01/11/17 at 21:00 ANDIE ISIDRO Jan 11, 2017 16:16
--- NOTE | 2017-01-11 16:19 | PN ---
DATE: 01/11/2017 CARDIOLOGY FOLLOWUP SUBJECTIVE: The patient remains in sinus rhythm, sinus bradycardia. Heart rate has remained stable . No chest pain or pressure. No palpitations. Discussed with the staff. Breathing has improved. MEDICATIONS: Reviewed, which include: 1. Iron. 2. Epogen. 3. Tylenol. 4. Coreg . 5. Lipitor. 6. Amiodarone 200. 7. Bumex 1 mg p.o. b.i.d. 8. Pepcid. 9. Imdur. PHYSICAL EXAMINATION: VITAL SIGNS: Temperature 98.5, heart rate of 64, blood pressure 111/62, respiratory rate of 17. HEENT: Normocephalic, atraumatic. Pupils are equal. Thin gentleman. CARDIOVASCULAR: Regular rate and rhythm, systolic murmur. PULMONARY: With crackles at the bases. GASTROINTESTINAL: Soft. No rebound or guarding. Nontender. EXTREMITIES: Positive ankle edema, appears to be improving. PSYCHIATRIC: Appears to be calm and pleasant. LABORATORY DATA: WBC of 5.4, hemoglobin 7.2, platelets of 221. Sodium 140, potassium 3.6, BUN of 3 3, creatinine 1.55, glucose 77. Iron is 41. Albumin is 2.9. Stool guaiac is negative. ASSESSMENT AND PLAN: 1. Congestive heart failure. 2. Severe cardiomyopathy. 3. Renal failure. 4. Pleural effusion, loculated. 5. Cirrhosis of liver disease. 6. Malnutrition. 7. Low albumin level. 8. Severe anemia. 9. Paroxysmal atrial fibrillation, currently in sinus rhythm. 10. pneumonia. RECOMMENDATIONS: Kidney function has improved. Anemia workup as per internal medicine. OB stool h as been negative so far. Continue with the current diuretic dose. Dictated By: COLIN MANJARREZ/LANG Conf#: [id number] DID#: [id number] CC: ANIL CONNOR DO; ;*EndCC*
[2017-01-11] MEDS ORDERED: EPOETIN 4000 UNITS/1 ML INJ (ESRD) SC SCH (17:00)
[2017-01-11] MEDS: ATORVASTATIN 40 MG TAB PO SCH (20:09)
[2017-01-11] MEDS: FERROUS SULFATE (EC) 325 MG TAB PO SCH (20:10)
[2017-01-12] VITALS (12 sets, daily range): BP systolic 96–119; BP diastolic 44–68; PULSE 61–64; RESP 16–20
[2017-01-12 07:51] LABS: BASOPHILS % 0.5 % (0.0-2.0); EOSINOPHILS # 0.1 10^3/ul (0.0-0.5); HEMATOCRIT 20.5 % (42.0-52.0); LYMPHOCYTES # 1.6 10^3/ul (0.8-2.9); LYMPHOCYTES % 28.9 % (15.0-51.0); MEAN CORPUSCULAR HEMOGLOBIN 33.1 pg (29.0-33.0); MEAN CORPUSCULAR HGB CONC 34.3 g/dl (32.0-37.0); MEAN CORPUSCULAR VOLUME 96.6 fl (82.0-101.0); MEAN PLATELET VOLUME 9.4 fl (7.4-10.4); MONOCYTE # 0.7 10^3/ul (0.3-0.9); MONOCYTES % 11.7 % (0.0-11.0); NEUTROPHIL # 3.3 10^3/ul (1.6-7.5); NEUTROPHILS % 57.9 % (39.0-77.0); PLATELET COUNT 220 10^3/UL (140-440); RED BLOOD COUNT 2.12 10^6/ul (4.70-6.10); RED CELL DISTRIBUTION WIDTH 17.2 % (11.5-14.5); UNCORRECTED WBC 5.7 10^3/ul (4.8-10.8); WHITE BLOOD COUNT 5.7 10^3/ul (4.8-10.8)
[2017-01-12 07:57] LABS: CONDITION 1; LH ANALYZER COMMENTS 1
[2017-01-12 08:02] LABS: POTASSIUM 3.8 mmol/L (3.5-5.1)
[2017-01-12 08:04] LABS: CREATININE 1.72 mg/dl (0.61-1.24)
[2017-01-12 08:05] LABS: CALCIUM 7.8 mg/dl (8.4-10.2)
--- NOTE | 2017-01-12 09:00 | CONS ---
Date/Time of Note Date/Time of Note DATE: 01/12/17 TIME: 08:58 Consult Date/Type/Reason Admit Date/Time Jan 07, 2017 at 22:50 Initial Consult Date Subjective The patient had paracentesis, tolerated well. The patient is currently in no acute distress. There is no fevers, chills, nausea, vomiting. OBJECTIVE: HEENT: Head is normocephalic. NECK: Supple. HEART: Regular rate. LUNGS: Show diminished breath sounds at the base. ABDOMEN: Soft, nontender to palpation. No rebound or guarding. EXTREMITIES: Negative for clubbing, cyanosis, no edema. DERMATOLOGIC: No rashes. MUSCULOSKELETAL: No joint effusions. NEUROLOGIC: No focal deficits. Objective Vital Signs Date Time Temp Pulse Resp B/P Pulse Ox O2 Delivery O2 Flow Rate FiO2 01/12/17 08:22 61 01/12/17 07:57 98.5 20 103/44 97 01/12/17 04:27 Room Air 01/10/17 08:30 2.0 Intake and Output 01/11/17 01/11/17 01/12/17 15:00 23:00 07:00 Intake Total 600 ml Output Total 700 ml Balance -100 ml Results/Medications Result Diagram: 01/12/17 0555 01/12/17 0555 Results 24 hrs Laboratory Tests Test 01/11/17 15:33 01/12/17 05:55 Hematocrit 20.4 L 20.5 L Hemoglobin 6.7 *L 7.0 L Anion Gap 15 Basophils # 0.0 Basophils % 0.5 Blood Morphology Comment Blood Urea Nitrogen 32 H Calcium Level 7.8 L Carbon Dioxide Level 28 Chloride Level 100 Creatinine 1.72 H Eosinophils # 0.1 Eosinophils % 1.0 Glucose Level 82 Lymphocytes # 1.6 Lymphocytes % 28.9 Mean Corpuscular Hemoglobin 33.1 H Mean Corpuscular Hemoglobin Concent 34.3 Mean Corpuscular Volume 96.6 Mean Platelet Volume 9.4 Monocytes # 0.7 Monocytes % 11.7 H Neutrophils # 3.3 Neutrophils % 57.9 Nucleated Red Blood Cells # 0.0 Nucleated Red Blood Cells % 0.0 Platelet Count 220 Potassium Level 3.8 Red Blood Count 2.12 L Red Cell Distribution Width 17.2 H Sodium Level 139 White Blood Count 5.7 Medications Current Medications Allopurinol (Zyloprim) 300 mg DAILY PO Last administered on 01/11/17 09:29; Admin Dose 300 MG; Start 01/08/17 at 09:00 Amiodarone HCl (Cordarone) 200 mg DAILY PO Last administered on 01/11/17 09:31 ; Admin Dose 200 MG; Start 01/08/17 at 09:00 Atorvastatin Calcium (Lipitor) 40 mg HS PO Last administered on 01/11/17 20:09 ; Admin Dose 40 MG; Start 01/08/17 at 21:00 Bumetanide (Bumex) 1 mg BID PO Last administered on 01/11/17 20:09; Admin Dose 1 MG; Start 01/08/17 at 09:00 Famotidine (Pepcid) 20 mg DAILY PO Last administered on 01/11/17 09:29; Admin Dose 20 MG; Start 01/08/17 at 09:00 Isosorbide Mononitrate (Imdur) 30 mg DAILY PO Last administered on 01/11/17 09 :33; Admin Dose 30 MG; Start 01/08/17 at 09:00 Heparin Sodium (Porcine) (Heparin (5000 Units/0.5 ml)) 5,000 unit BID SC Last administered on 01/11/17 09:29; Admin Dose 5,000 UNIT; Start 01/08/17 at 09:00 Carvedilol (Coreg) 1.5625 mg BID PO Last administered on 01/11/17 20:09; Admin Dose 1.5625 MG; Start 01/10/17 at 09:00 Acetaminophen (Tylenol Tab) 650 mg Q6H PRN PO PAIN AND OR ELEVATED TEMP Last administered on 01/11/17 14:15; Admin Dose 650 MG; Start 01/11/17 at 14:30 Ferrous Sulfate (Ferrous Sulfate (Ec)) 325 mg TID PO Last administered on 20:10; Admin Dose 325 MG; Start 01/11/17 at 21:00 Assessment/Plan Chief Complaint/Hosp Course 1. Nonoliguric acute kidney injury on top of chronic kidney disease stage IIIB/ IV with previous baseline creatinine around 2.0 mg/dL. Etiology of acute kidney injury secondary to hemodynamics, cardiorenal syndrome, questionable intra-abdominal hypertension. The patient is status post thoracentesis. The patient is also on diuretic therapy, responding well. Renal function has been improving. At this point, continue current treatment plan, supportive care, renally dose all meds, continue current diuretic regimen. 2. Acute systolic, diastolic heart failure. The patient is improving. Continue current medical management and follow up with cardiology. Continue diuretic regimen. 3. Anemia of chronic disease. Hemoglobin levels will be monitored. sp one dose of Epogen. 4. Abdominal ascites. The patient is status post paracentesis. We will follow up cultures. 5. Pleural effusion secondary to congestive heart failure. Continue to monitor. 6. Acute respiratory failure secondary to congestive heart failure, improving. 7. Atrial fibrillation. Continue current treatment plan. 8. History of gastric and colon carcinoma. Problems: ELIN ORTA MD Jan 12, 2017 09:00
[2017-01-12] MEDS: FAMOTIDINE 20 MG TAB PO SCH (09:05)
[2017-01-12] MEDS: ALLOPURINOL 300 MG TAB PO SCH (09:05)
[2017-01-12] MEDS: AMIODARONE 200 MG TAB PO SCH (09:05)
[2017-01-12] MEDS: ISOSORBIDE MONONITRATE(SR)30 MG TAB PO SCH (09:05)
[2017-01-12] MEDS: FERROUS SULFATE (EC) 325 MG TAB PO SCH ×3 (09:05→21:31)
[2017-01-12] MEDS: BUMETANIDE 1 MG TAB PO SCH ×2 (09:05→21:31)
[2017-01-12] MEDS: HEPARIN 5,000 UNIT/0.5 ML SYG SC SCH ×2 (09:11→21:33)
[2017-01-12] MEDS ORDERED: SOD CHLORIDE 0.9% 250 ML IV* ONE (12:54)
--- NOTE | 2017-01-12 13:29 | CONS ---
Date/Time of Note Date/Time of Note DATE: 01/12/17 TIME: 13:17 Assessment/Plan Assessment/Plan Chief Complaint/Hosp Course Impression: 1. Anemia: ben from chronic disease, occult blood negative on 01-10-17 2. h/o alcoholic cirrhosis 3. Ascites: ben secondary from CHF, contributed by his cirrhosis. 4. Acute on chronic CHF. Patient with most recent echocardiogram in 11/20/2016 with EF of 35% with stage III to stage IV diastolic dysfunction. 5. Pulmonary hypertension 3. Bilateral pleural effusion secondary to decompensated CHF. 4. Suspect pneumonia. 5. History of gastric and colon cancer. Patient status post surgery and chemotherapy. No active issue at this time. 6. Acute on chronic kidney disease. Monitor renal panel. diuretic per nephrology. Recommendation: 1. paracentesis PRN 2. although patient has negative occult blood, will consider EGD if h/h continues to drop further 3. change H2 cecilia to PPI for better acid suppression and possible GIB 4. continue other supportive care per primary and other consultants. Problems: Consultation Date/Type/Reason Admit Date/Time Jan 07, 2017 at 22:50 Type of Consultation: GI Hx of Present Illness 66-year-old male who is admitted for CHF exacerbation. He has a history of cardiomyopathy with systolic dysfunction with an EF of 35%, chronic kidney disease, paroxysmal AFib, decompensated liver cirrhosis, history of alcohol abuse, gastric and colon cancer status post surgery and chemo, anemia who presented to the emergency department with a chief complaint of shortness of breath and lower extremity swelling. The patient stated that his symptoms are chronic but progressively worsening over the past day or 2. He denies any chest pain. He was last admitted here exactly a month ago for shortness of breath and abdominal distention and lower extremity swelling. When he presented to the ER this time, blood pressure 99/59, heart rate 59, respiratory rate 18, temperature 97.5, oxygen saturation 96% on room air. W/u showed anemia with down-trending hemoglobin of 9.4 to 8.3 and now around 7. BNP 15, 600. Chest x-ray shows cardiomegaly with bilateral pleural effusion. The left effusion increased in size compared to the chest x-ray that was done a month ago. Also asymmetric perihilar and basilar infiltrates which are more pronounced in the right perihilar area and right lower lobe area. Asymmetric pulmonary edema associated with CHF or asymmetric infiltrate from pneumonia according to the radiology might present in this fashion. He received Zofran and Tylenol in the ER and admitted to telemetry. The patient denied chest pain , fever, chills, nausea, or vomiting. Occult blood negative. All point ROS administered, pertinent positives and negatives in HPI otherwise negative. Past Medical History cardiomyopathy, paroxysmal A. fib, decompensated liver cirrhosis, gastric and colon cancer s/p surgery and chemo, anemia of chronic disease. Medical History: congestive heart failure, coronary artery disease, renal disease Past Surgical History Past Surgical Hx: endoscopy Family History Significant Family History: no pertinent family hx Social History Alcohol Use: sober Smoking Status: Never smoker Drug Use: none Exam/Review of Systems Vital Signs Vitals Vital Signs Date Time Temp Pulse Resp B/P Pulse Ox O2 Delivery O2 Flow Rate FiO2 01/12/17 12:23 63 01/12/17 12:01 98.3 18 119/68 99 01/12/17 04:27 Room Air 01/10/17 08:30 2.0 Intake and Output 01/11/17 01/11/17 01/12/17 15:00 23:00 07:00 Intake Total 600 ml Output Total 700 ml Balance -100 ml Exam Constitutional: alert, oriented, well developed Psych: nl mood/affect, no complaints Head: atraumatic, normocephalic Eyes: EOMI, nl conjunctiva, nl lids ENMT: mucosa pink and moist, nl external ears & nose, nl lips & teeth, nl nasal mucosa & septum Neck: non-tender, supple Respiratory: clear to auscultation, normal air movement Cardiovascular: nl pulses, regular rate and rhythm Gastrointestinal: ascites, bowel sounds, soft, tender (diffusely) Results Result Diagram: 01/12/17 0555 01/12/17 0555 Results 24 hrs Laboratory Tests Test 01/11/17 15:33 01/12/17 05:55 Hematocrit 20.4 L 20.5 L Hemoglobin 6.7 *L 7.0 L Anion Gap 15 Basophils # 0.0 Basophils % 0.5 Blood Morphology Comment Blood Urea Nitrogen 32 H Calcium Level 7.8 L Carbon Dioxide Level 28 Chloride Level 100 Creatinine 1.72 H Eosinophils # 0.1 Eosinophils % 1.0 Glucose Level 82 Lymphocytes # 1.6 Lymphocytes % 28.9 Mean Corpuscular Hemoglobin 33.1 H Mean Corpuscular Hemoglobin Concent 34.3 Mean Corpuscular Volume 96.6 Mean Platelet Volume 9.4 Monocytes # 0.7 Monocytes % 11.7 H Neutrophils # 3.3 Neutrophils % 57.9 Nucleated Red Blood Cells # 0.0 Nucleated Red Blood Cells % 0.0 Platelet Count 220 Potassium Level 3.8 Red Blood Count 2.12 L Red Cell Distribution Width 17.2 H Sodium Level 139 White Blood Count 5.7 Medications Medications Current Medications Allopurinol (Zyloprim) 300 mg DAILY PO Last administered on 01/12/17 09:05; Admin Dose 300 MG; Start 01/08/17 at 09:00 Amiodarone HCl (Cordarone) 200 mg DAILY PO Last administered on 01/12/17 09:05 ; Admin Dose 200 MG; Start 01/08/17 at 09:00 Atorvastatin Calcium (Lipitor) 40 mg HS PO Last administered on 01/11/17 20:09 ; Admin Dose 40 MG; Start 01/08/17 at 21:00 Bumetanide (Bumex) 1 mg BID PO Last administered on 01/12/17 09:05; Admin Dose 1 MG; Start 01/08/17 at 09:00 Famotidine (Pepcid) 20 mg DAILY PO Last administered on 01/12/17 09:05; Admin Dose 20 MG; Start 01/08/17 at 09:00 Isosorbide Mononitrate (Imdur) 30 mg DAILY PO Last administered on 01/12/17 09 :05; Admin Dose 30 MG; Start 01/08/17 at 09:00 Heparin Sodium (Porcine) (Heparin (5000 Units/0.5 ml)) 5,000 unit BID SC Last administered on 01/12/17 09:11; Admin Dose 5,000 UNIT; Start 01/08/17 at 09:00 Carvedilol (Coreg) 1.5625 mg BID PO Last administered on 01/12/17 09:06; Admin Dose 1.5625 MG; Start 01/10/17 at 09:00 Acetaminophen (Tylenol Tab) 650 mg Q6H PRN PO PAIN AND OR ELEVATED TEMP Last administered on 01/11/17 14:15; Admin Dose 650 MG; Start 01/11/17 at 14:30 Ferrous Sulfate (Ferrous Sulfate (Ec)) 325 mg TID PO Last administered on t 13:00; Admin Dose 325 MG; Start 01/11/17 at 21:00 TOREY BORGES MD Jan 12, 2017 13:28
--- NOTE | 2017-01-12 14:35 | PN ---
Date/Time of Note Date/Time of Note DATE: 01/12/17 TIME: 14:31 Assessment/Plan VTE Prophylaxis VTE Prophylaxis Intervention: heparin Lines/Catheters IV [facility] Urinary Cath still in place: No Assessment/Plan Chief Complaint/Hosp Course Assessment and plan 1. Acute on chronic CHF. Patient with most recent echocardiogram in 11/20/2016 with EF of 35% with stage III to stage IV diastolic dysfunction. Responding well to Bumex drip. Continue 2. Pulmonary hypertension. Patient seen with PASP of 55 mmHg. Patient also noted with severe tricuspid regurgitation. Continue on diuretic per nephrology. Follow-up with cardiology recommendations 3. Bilateral pleural effusion secondary to decompensated CHF. Continue on diuretic. Monitor renal panel. Thoracentesis if respiratory status continues to deteriorate 4. Suspect pneumonia. Continue on antibiotic 5. Cardiomyopathy with ejection fraction of 35%. Continue optimization with cardiovascular medications 6. Decompensated liver disease with history of coagulopathy. Monitor H&H. s/p paracentesis. 7. Anemia of chronic disease. Monitor H&H. worse today. Will transfuse 1 prbc. Will get GI consult 8. Paroxysmal fibrillation. Stable at present. Continue telemetry monitoring 9. History of gastric and colon cancer. Patient status post surgery and chemotherapy. No active issue at this time. We'll monitor 10. Acute on chronic kidney disease. Monitor renal panel. diuretic per nephrology. 11. Abdominal Ascites. s/p paracentesis with good response. Disposition and plan: Patient to be transfused PRBC. Continue gastroenterology recommendations. Tentative plan for EGD should H&H continue to fall Discussed plan of care with Dr. Adamson Problems: Subjective 24 Hr Interval Summary Free Text/Dictation No apparent distress noted at this time. Family at bedside Exam/Review of Systems Vital Signs Vitals Vital Signs Date Time Temp Pulse Resp B/P Pulse Ox O2 Delivery O2 Flow Rate FiO2 01/12/17 12:23 63 01/12/17 12:01 98.3 18 119/68 99 01/12/17 04:27 Room Air 01/10/17 08:30 2.0 Intake and Output 01/11/17 01/11/17 01/12/17 14:59 22:59 06:59 Intake Total 600 ml Output Total 700 ml Balance -100 ml Exam General: No acute signs or symptoms of distress Eyes: pupils equal round, Anicteric sclera Neck: JVD seen more on right neck area Cardiac: Heart murmur auscultated. Regular rate Pulmonary: Diminished bilaterally at lung bases GI: soft, nontender Extremities:less edema BLE Skin: Clean dry and intact Neurologic: Alert to person place and time and situation Results Result Diagram: 01/12/17 0555 01/12/17 0555 Results 24 hrs Laboratory Tests Test 01/11/17 15:33 01/12/17 05:55 Hematocrit 20.4 L 20.5 L Hemoglobin 6.7 *L 7.0 L Anion Gap 15 Basophils # 0.0 Basophils % 0.5 Blood Morphology Comment Blood Urea Nitrogen 32 H Calcium Level 7.8 L Carbon Dioxide Level 28 Chloride Level 100 Creatinine 1.72 H Eosinophils # 0.1 Eosinophils % 1.0 Glucose Level 82 Lymphocytes # 1.6 Lymphocytes % 28.9 Mean Corpuscular Hemoglobin 33.1 H Mean Corpuscular Hemoglobin Concent 34.3 Mean Corpuscular Volume 96.6 Mean Platelet Volume 9.4 Monocytes # 0.7 Monocytes % 11.7 H Neutrophils # 3.3 Neutrophils % 57.9 Nucleated Red Blood Cells # 0.0 Nucleated Red Blood Cells % 0.0 Platelet Count 220 Potassium Level 3.8 Red Blood Count 2.12 L Red Cell Distribution Width 17.2 H Sodium Level 139 White Blood Count 5.7 Medications Medications Current Medications Allopurinol (Zyloprim) 300 mg DAILY PO Last administered on 01/12/17 09:05; Admin Dose 300 MG; Start 01/08/17 at 09:00 Amiodarone HCl (Cordarone) 200 mg DAILY PO Last administered on 01/12/17 09:05 ; Admin Dose 200 MG; Start 01/08/17 at 09:00 Atorvastatin Calcium (Lipitor) 40 mg HS PO Last administered on 01/11/17 20:09 ; Admin Dose 40 MG; Start 01/08/17 at 21:00 Bumetanide (Bumex) 1 mg BID PO Last administered on 01/12/17 09:05; Admin Dose 1 MG; Start 01/08/17 at 09:00 Isosorbide Mononitrate (Imdur) 30 mg DAILY PO Last administered on 01/12/17 09 :05; Admin Dose 30 MG; Start 01/08/17 at 09:00 Heparin Sodium (Porcine) (Heparin (5000 Units/0.5 ml)) 5,000 unit BID SC Last administered on 01/12/17 09:11; Admin Dose 5,000 UNIT; Start 01/08/17 at 09:00 Carvedilol (Coreg) 1.5625 mg BID PO Last administered on 01/12/17 09:06; Admin Dose 1.5625 MG; Start 01/10/17 at 09:00 Acetaminophen (Tylenol Tab) 650 mg Q6H PRN PO PAIN AND OR ELEVATED TEMP Last administered on 01/11/17 14:15; Admin Dose 650 MG; Start 01/11/17 at 14:30 Ferrous Sulfate (Ferrous Sulfate (Ec)) 325 mg TID PO Last administered on 13:00; Admin Dose 325 MG; Start 01/11/17 at 21:00 Pantoprazole (Protonix Tab) 40 mg BID@,18 PO ; Start 01/12/17 at 18:00 ANDIE ISIDRO Jan 12, 2017 14:35
--- NOTE | 2017-01-12 17:26 | PN ---
DATE: 01/12/2017 CARDIOLOGY FOLLOWUP SUBJECTIVE: Discussed with the staff, discussed with patient's . Rhythm strip was reviewed. T he patient remains in sinus rhythm. No chest pain or pressure. Breathing has significantly improve d. No palpitation. MEDICATIONS: Reviewed, include: 1. Protonix. 2. Coreg b.i.d. 3. Lipitor. 4. Allopurinol. 5. Amiodarone 200. 6. Bumex 1 mg p.o. b.i.d. 7. Imdur. 8. Heparin subcutaneously. PHYSICAL EXAMINATION: VITAL SIGNS: Temperature 98.3, heart rate of 66, blood pressure 119/65, respiratory rate of 18, sat urating 99%. HEENT: Normocephalic, atraumatic. Pupils are equal. CARDIOVASCULAR: Regular rate and rhythm. Systolic murmur. PULMONARY: With no wheezes, but positive for rhonchi at the bases. GASTROINTESTINAL: No rebound or guarding. EXTREMITIES: With positive ankle edema. NEUROLOGIC: Awake, responds. PSYCHIATRIC: Appears to be calm and pleasant. LABORATORY DATA: Hemoglobin of 7, platelets of 220, WBC of 5.7. Stool guaiac is negative x1. ASSESSMENT AND PLAN: 1. Congestive heart failure, currently appears to be stable. 2. Severe cardiomyopathy. 3. History of alcoholic cirrhosis. 4. Severe anemia with negative guaiac stool with worsening anemia. 5. Pleural effusion. 6. History of gastric and colon cancer, status post surgery and chemotherapy. 7. Renal failure, currently at his baseline. RECOMMENDATIONS: We will continue with the current cardiac care. I have held off so far anticoagul ation given his worsening anemia. We will monitor on telemetry for now. Dictated By: COLIN MANJARREZ/LANG Conf#: [id number] DID#: [id number]
[2017-01-12] MEDS: PANTOPRAZOLE (EC) 40 MG TAB PO SCH (18:34)
[2017-01-12] MEDS: ATORVASTATIN 40 MG TAB PO SCH (21:31)
[2017-01-13] VITALS (12 sets, daily range): BP systolic 99–117; BP diastolic 60–87; PULSE 59–61; RESP 17–19
[2017-01-13] MEDS: PANTOPRAZOLE (EC) 40 MG TAB PO SCH ×2 (06:29→17:32)
[2017-01-13 06:49] LABS: POTASSIUM 3.8 mmol/L (3.5-5.1)
[2017-01-13 06:51] LABS: CREATININE 1.67 mg/dl (0.61-1.24)
[2017-01-13 06:59] LABS: BASOPHILS % 0.6 % (0.0-2.0); EOSINOPHILS # 0.1 10^3/ul (0.0-0.5); EOSINOPHILS % 0.8 % (0.0-7.0); HEMATOCRIT 23.8 % (42.0-52.0); HEMOGLOBIN 8.3 g/dl (14.0-18.0); LYMPHOCYTES # 1.6 10^3/ul (0.8-2.9); LYMPHOCYTES % 26.9 % (15.0-51.0); MEAN CORPUSCULAR HEMOGLOBIN 33.6 pg (29.0-33.0); MEAN CORPUSCULAR HGB CONC 34.7 g/dl (32.0-37.0); MEAN CORPUSCULAR VOLUME 96.9 fl (82.0-101.0); MEAN PLATELET VOLUME 9.5 fl (7.4-10.4); MONOCYTE # 0.6 10^3/ul (0.3-0.9); MONOCYTES % 10.7 % (0.0-11.0); NEUTROPHIL # 3.6 10^3/ul (1.6-7.5); PLATELET COUNT 217 10^3/UL (140-440); RED BLOOD COUNT 2.45 10^6/ul (4.70-6.10); RED CELL DISTRIBUTION WIDTH 16.2 % (11.5-14.5)
[2017-01-13 07:20] LABS: CONDITION 1; LH ANALYZER COMMENTS 1
[2017-01-13] MEDS: BUMETANIDE 1 MG TAB PO SCH ×2 (09:08→21:54)
[2017-01-13] MEDS: AMIODARONE 200 MG TAB PO SCH (09:08)
[2017-01-13] MEDS: FERROUS SULFATE (EC) 325 MG TAB PO SCH ×3 (09:10→21:54)
[2017-01-13] MEDS: ALLOPURINOL 300 MG TAB PO SCH (09:11)
[2017-01-13] MEDS: ISOSORBIDE MONONITRATE(SR)30 MG TAB PO SCH (09:11)
[2017-01-13] MEDS: HEPARIN 5,000 UNIT/0.5 ML SYG SC SCH ×2 (09:12→21:58)
--- NOTE | 2017-01-13 09:34 | CONS ---
Date/Time of Note Date/Time of Note DATE: 01/13/17 TIME: 09:31 Consult Date/Type/Reason Admit Date/Time Jan 07, 2017 at 22:50 Type of Consultation: neph Subjective The patient had paracentesis, tolerated well. continues good uo. poc reviewed with dr. ratliff. The patient is currently in no acute distress. There is no fevers, chills, nausea, vomiting. sp prbc yesterday. OBJECTIVE: HEENT: Head is normocephalic. NECK: Supple. HEART: Regular rate. LUNGS: Show diminished breath sounds at the base. ABDOMEN: Soft, nontender to palpation. No rebound or guarding. EXTREMITIES: Negative for clubbing, cyanosis, no edema. DERMATOLOGIC: No rashes. MUSCULOSKELETAL: No joint effusions. NEUROLOGIC: No focal deficits. Objective Vital Signs Date Time Temp Pulse Resp B/P Pulse Ox O2 Delivery O2 Flow Rate FiO2 01/13/17 08:25 59 01/13/17 07:35 98.3 18 108/60 96 01/12/17 04:27 Room Air 01/10/17 08:30 2.0 Intake and Output 01/12/17 01/12/17 01/13/17 15:00 23:00 07:00 Intake Total 840 ml 540 ml Output Total 900 ml 550 ml Balance -60 ml -10 ml Results/Medications Result Diagram: 01/13/17 0520 01/13/17 0520 Results 24 hrs Laboratory Tests Test 01/13/17 05:20 Anion Gap 15 Basophils # 0.0 Basophils % 0.6 Blood Morphology Comment Blood Urea Nitrogen 31 H Calcium Level 8.0 L Carbon Dioxide Level 28 Chloride Level 99 Creatinine 1.67 H Eosinophils # 0.1 Eosinophils % 0.8 Glucose Level 81 Hematocrit 23.8 L Hemoglobin 8.3 L Lymphocytes # 1.6 Lymphocytes % 26.9 Mean Corpuscular Hemoglobin 33.6 H Mean Corpuscular Hemoglobin Concent 34.7 Mean Corpuscular Volume 96.9 Mean Platelet Volume 9.5 Monocytes # 0.6 Monocytes % 10.7 Neutrophils # 3.6 Neutrophils % 61.0 Nucleated Red Blood Cells # 0.0 Nucleated Red Blood Cells % 0.0 Platelet Count 217 Potassium Level 3.8 Red Blood Count 2.45 L Red Cell Distribution Width 16.2 H Sodium Level 138 White Blood Count 6.0 Medications Current Medications Allopurinol (Zyloprim) 300 mg DAILY PO Last administered on 01/13/17 09:11; Admin Dose 300 MG; Start 01/08/17 at 09:00 Amiodarone HCl (Cordarone) 200 mg DAILY PO Last administered on 01/13/17 09:08 ; Admin Dose 200 MG; Start 01/08/17 at 09:00 Atorvastatin Calcium (Lipitor) 40 mg HS PO Last administered on 01/12/17 21:31 ; Admin Dose 40 MG; Start 01/08/17 at 21:00 Bumetanide (Bumex) 1 mg BID PO Last administered on 01/13/17 09:08; Admin Dose 1 MG; Start 01/08/17 at 09:00 Isosorbide Mononitrate (Imdur) 30 mg DAILY PO Last administered on 01/13/17 09 :11; Admin Dose 30 MG; Start 01/08/17 at 09:00 Heparin Sodium (Porcine) (Heparin (5000 Units/0.5 ml)) 5,000 unit BID SC Last administered on 01/13/17 09:12; Admin Dose 5,000 UNIT; Start 01/08/17 at 09:00 Carvedilol (Coreg) 1.5625 mg BID PO Last administered on 01/13/17 09:10; Admin Dose 1.5625 MG; Start 01/10/17 at 09:00 Acetaminophen (Tylenol Tab) 650 mg Q6H PRN PO PAIN AND OR ELEVATED TEMP Last administered on 01/11/17 14:15; Admin Dose 650 MG; Start 01/11/17 at 14:30 Ferrous Sulfate (Ferrous Sulfate (Ec)) 325 mg TID PO Last administered on 09:10; Admin Dose 325 MG; Start 01/11/17 at 21:00 Pantoprazole (Protonix Tab) 40 mg BID@ PO Last administered on 01/13/17 06:29; Admin Dose 40 MG; Start 01/12/17 at 18:00 Assessment/Plan Chief Complaint/Hosp Course 1. Nonoliguric acute kidney injury on top of chronic kidney disease stage IIIB/ IV with previous baseline creatinine around 2.0 mg/dL. Etiology of acute kidney injury secondary to hemodynamics, cardiorenal syndrome, questionable intra-abdominal hypertension. The patient is status post thoracentesis. The patient is also on diuretic therapy, responding well. Renal function has been improving. At this point, continue current treatment plan, supportive care, renally dose all meds, continue current diuretic regimen. 2. Acute systolic, diastolic heart failure. The patient is improving. Continue current medical management and follow up with cardiology. Continue diuretic regimen. 3. Anemia of chronic disease. Hemoglobin levels will be monitored. sp one dose of Epogen. sp prbc yesterday 4. Abdominal ascites. The patient is status post paracentesis. We will follow up cultures. 5. Pleural effusion secondary to congestive heart failure. Continue to monitor. 6. Acute respiratory failure secondary to congestive heart failure, improving. 7. Atrial fibrillation. Continue current treatment plan. 8. History of gastric and colon carcinoma. Problems: ELIN ORTA MD Jan 13, 2017 09:34
--- NOTE | 2017-01-13 12:17 | CONS ---
Date/Time of Note Date/Time of Note DATE: 01/13/17 TIME: 12:14 Assessment/Plan Assessment/Plan Chief Complaint/Hosp Course Impression: 1. Anemia: ben from chronic disease, occult blood negative x 2 2. h/o alcoholic cirrhosis 3. Ascites: ben secondary from CHF, contributed by his cirrhosis. 4. Acute on chronic CHF. Patient with most recent echocardiogram in 11/20/2016 with EF of 35% with stage III to stage IV diastolic dysfunction. 5. Pulmonary hypertension 3. Bilateral pleural effusion secondary to decompensated CHF. 4. Suspect pneumonia. 5. History of gastric and colon cancer. Patient status post surgery and chemotherapy. No active issue at this time. 6. Acute on chronic kidney disease. Monitor renal panel. diuretic per nephrology. Recommendation: 1. paracentesis PRN 2. although patient has negative occult blood, so at this time so urgent indication for endoscopic procedure 3. change H2 cecilia to PPI for better acid suppression and possible GIB 4. continue other supportive care per primary and other consultants. Problems: Consultation Date/Type/Reason Admit Date/Time Jan 07, 2017 at 22:50 Initial Consult Date Type of Consultation: GI 24 HR Interval Summary Free Text/Dictation no abdominal pain, no n/v Constitutional: improved Exam/Review of Systems Vital Signs Vitals Vital Signs Date Time Temp Pulse Resp B/P Pulse Ox O2 Delivery O2 Flow Rate FiO2 01/13/17 11:52 99.1 61 17 103/61 99 01/12/17 04:27 Room Air 01/10/17 08:30 2.0 Intake and Output 01/12/17 01/12/17 01/13/17 15:00 23:00 07:00 Intake Total 840 ml 540 ml Output Total 900 ml 550 ml Balance -60 ml -10 ml Exam Constitutional: alert, oriented, well developed Psych: nl mood/affect, no complaints Head: atraumatic, normocephalic Eyes: EOMI, nl conjunctiva, nl lids, nl sclera ENMT: mucosa pink and moist, nl external ears & nose, nl lips & teeth, nl nasal mucosa & septum Neck: non-tender, supple Respiratory: clear to auscultation, normal air movement Cardiovascular: nl pulses, regular rate and rhythm Gastrointestinal: bowel sounds, non-tender, soft Results Result Diagram: 2/19/17 0520 2/19/17 0520 Results 24 hrs Laboratory Tests Test 01/13/17 05:20 Anion Gap 15 Basophils # 0.0 Basophils % 0.6 Blood Morphology Comment Blood Urea Nitrogen 31 H Calcium Level 8.0 L Carbon Dioxide Level 28 Chloride Level 99 Creatinine 1.67 H Eosinophils # 0.1 Eosinophils % 0.8 Glucose Level 81 Hematocrit 23.8 L Hemoglobin 8.3 L Lymphocytes # 1.6 Lymphocytes % 26.9 Mean Corpuscular Hemoglobin 33.6 H Mean Corpuscular Hemoglobin Concent 34.7 Mean Corpuscular Volume 96.9 Mean Platelet Volume 9.5 Monocytes # 0.6 Monocytes % 10.7 Neutrophils # 3.6 Neutrophils % 61.0 Nucleated Red Blood Cells # 0.0 Nucleated Red Blood Cells % 0.0 Platelet Count 217 Potassium Level 3.8 Red Blood Count 2.45 L Red Cell Distribution Width 16.2 H Sodium Level 138 White Blood Count 6.0 Medications Medications Current Medications Allopurinol (Zyloprim) 300 mg DAILY PO Last administered on 01/13/17 09:11; Admin Dose 300 MG; Start 01/08/17 at 09:00 Amiodarone HCl (Cordarone) 200 mg DAILY PO Last administered on 01/13/17 09:08 ; Admin Dose 200 MG; Start 01/08/17 at 09:00 Atorvastatin Calcium (Lipitor) 40 mg HS PO Last administered on 01/12/17 21:31 ; Admin Dose 40 MG; Start 01/08/17 at 21:00 Bumetanide (Bumex) 1 mg BID PO Last administered on 01/13/17 09:08; Admin Dose 1 MG; Start 01/08/17 at 09:00 Isosorbide Mononitrate (Imdur) 30 mg DAILY PO Last administered on 01/13/17 09 :11; Admin Dose 30 MG; Start 01/08/17 at 09:00 Heparin Sodium (Porcine) (Heparin (5000 Units/0.5 ml)) 5,000 unit BID SC Last administered on 01/13/17 09:12; Admin Dose 5,000 UNIT; Start 01/08/17 at 09:00 Carvedilol (Coreg) 1.5625 mg BID PO Last administered on 01/13/17 09:10; Admin Dose 1.5625 MG; Start 2/16/17 at 09:00 Acetaminophen (Tylenol Tab) 650 mg Q6H PRN PO PAIN AND OR ELEVATED TEMP Last administered on 01/11/17 14:15; Admin Dose 650 MG; Start 01/11/17 at 14:30 Ferrous Sulfate (Ferrous Sulfate (Ec)) 325 mg TID PO Last administered on 09:10; Admin Dose 325 MG; Start 01/11/17 at 21:00 Pantoprazole (Protonix Tab) 40 mg BID@,18 PO Last administered on 01/13/17 06:29; Admin Dose 40 MG; Start 01/12/17 at 18:00 TOREY BORGES MD Jan 13, 2017 12:17
--- NOTE | 2017-01-13 14:25 | PN ---
Date/Time of Note Date/Time of Note DATE: 01/13/17 TIME: 14:22 Assessment/Plan VTE Prophylaxis VTE Prophylaxis Intervention: heparin Lines/Catheters IV [facility]from [facility] Saline Lock Urinary Cath still in place: No Assessment/Plan Chief Complaint/Hosp Course Assessment and plan 1. Acute on chronic CHF. Patient with most recent echocardiogram in 11/20/2016 with EF of 35% with stage III to stage IV diastolic dysfunction. Responding well to Bumex drip. Continue 2. Pulmonary hypertension. Patient seen with PASP of 55 mmHg. Patient also noted with severe tricuspid regurgitation. Continue on diuretic per nephrology. Follow-up with cardiology recommendations 3. Bilateral pleural effusion secondary to decompensated CHF. Continue on diuretic. Monitor renal panel. Thoracentesis if respiratory status continues to deteriorate 4. Suspect pneumonia. Continue on antibiotic 5. Cardiomyopathy with ejection fraction of 35%. Continue optimization with cardiovascular medications 6. Decompensated liver disease with history of coagulopathy. Monitor H&H. s/p paracentesis. 7. Anemia of chronic disease. Monitor H&H. worse today. s/p 1 prbc transfusion. Continue with GI recommendations 8. Paroxysmal fibrillation. Stable at present. Continue telemetry monitoring 9. History of gastric and colon cancer. Patient status post surgery and chemotherapy. No active issue at this time. We'll monitor 10. Acute on chronic kidney disease. Monitor renal panel. diuretic per nephrology. 11. Abdominal Ascites. s/p paracentesis with good response. Disposition and plan: H&H improved status post 1 unit transfusion PRBC 2016. Monitor trend. Follow-up with nephrology recommendations for renal function. Discharge when medically stable and cleared by consultants Discussed plan of care with Dr. Adamson Problems: Subjective 24 Hr Interval Summary Free Text/Dictation Reports feeling better. No apparent distress Exam/Review of Systems Vital Signs Vitals Vital Signs Date Time Temp Pulse Resp B/P Pulse Ox O2 Delivery O2 Flow Rate FiO2 01/13/17 12:16 60 01/13/17 11:52 99.1 17 103/61 99 01/12/17 04:27 Room Air 01/10/17 08:30 2.0 Intake and Output 01/12/17 01/12/17 01/13/17 14:59 22:59 06:59 Intake Total 840 ml 540 ml Output Total 900 ml 550 ml Balance -60 ml -10 ml Exam General: No acute signs or symptoms of distress Eyes: pupils equal round, Anicteric sclera Neck: JVD seen more on right neck area Cardiac: Heart murmur auscultated. Regular rate Pulmonary: Diminished bilaterally at lung bases GI: soft, nontender Extremities:less edema BLE Skin: Clean dry and intact Neurologic: Alert to person place and time and situation Results Result Diagram: 01/13/17 0520 01/13/17 0520 Results 24 hrs Laboratory Tests Test 01/13/17 05:20 Anion Gap 15 Basophils # 0.0 Basophils % 0.6 Blood Morphology Comment Blood Urea Nitrogen 31 H Calcium Level 8.0 L Carbon Dioxide Level 28 Chloride Level 99 Creatinine 1.67 H Eosinophils # 0.1 Eosinophils % 0.8 Glucose Level 81 Hematocrit 23.8 L Hemoglobin 8.3 L Lymphocytes # 1.6 Lymphocytes % 26.9 Mean Corpuscular Hemoglobin 33.6 H Mean Corpuscular Hemoglobin Concent 34.7 Mean Corpuscular Volume 96.9 Mean Platelet Volume 9.5 Monocytes # 0.6 Monocytes % 10.7 Neutrophils # 3.6 Neutrophils % 61.0 Nucleated Red Blood Cells # 0.0 Nucleated Red Blood Cells % 0.0 Platelet Count 217 Potassium Level 3.8 Red Blood Count 2.45 L Red Cell Distribution Width 16.2 H Sodium Level 138 White Blood Count 6.0 Medications Medications Current Medications Allopurinol (Zyloprim) 300 mg DAILY PO Last administered on 01/13/17 09:11; Admin Dose 300 MG; Start 01/08/17 at 09:00 Amiodarone HCl (Cordarone) 200 mg DAILY PO Last administered on 01/13/17 09:08 ; Admin Dose 200 MG; Start 01/08/17 at 09:00 Atorvastatin Calcium (Lipitor) 40 mg HS PO Last administered on 01/12/17 21:31 ; Admin Dose 40 MG; Start 01/08/17 at 21:00 Bumetanide (Bumex) 1 mg BID PO Last administered on 01/13/17 09:08; Admin Dose 1 MG; Start 01/08/17 at 09:00 Isosorbide Mononitrate (Imdur) 30 mg DAILY PO Last administered on 01/13/17 09 :11; Admin Dose 30 MG; Start 01/08/17 at 09:00 Heparin Sodium (Porcine) (Heparin (5000 Units/0.5 ml)) 5,000 unit BID SC Last administered on 01/13/17 09:12; Admin Dose 5,000 UNIT; Start 01/08/17 at 09:00 Carvedilol (Coreg) 1.5625 mg BID PO Last administered on 01/13/17 09:10; Admin Dose 1.5625 MG; Start 01/10/17 at 09:00 Acetaminophen (Tylenol Tab) 650 mg Q6H PRN PO PAIN AND OR ELEVATED TEMP Last administered on 01/11/17 14:15; Admin Dose 650 MG; Start 01/11/17 at 14:30 Ferrous Sulfate (Ferrous Sulfate (Ec)) 325 mg TID PO Last administered on 09:10; Admin Dose 325 MG; Start 01/11/17 at 21:00 Pantoprazole (Protonix Tab) 40 mg BID@,18 PO Last administered on 01/13/17 06:29; Admin Dose 40 MG; Start 01/12/17 at 18:00 ANDIE ISIDRO Jan 13, 2017 14:25
--- NOTE | 2017-01-13 18:38 | PN ---
DATE: 01/13/2017 CARDIOLOGY FOLLOWUP SUBJECTIVE: Discussed with the staff. Rhythm strip reviewed. Remains in sinus rhythm. No reporte d chest pressure. Feeling much better. No bleeding reported. MEDICATIONS: Reviewed. PHYSICAL EXAMINATION: VITAL SIGNS: Temperature 98.9, heart rate of 60, blood pressure 90/60, respiration rate of 18, satu rating 100%. HEENT: Normocephalic, atraumatic. Pupils are equal. CARDIOVASCULAR: Regular rate and rhythm. PULMONARY: With rhonchi at the right base. GASTROINTESTINAL: Soft, nontender. EXTREMITIES: With positive lower extremity edema, which improved. NEUROLOGIC: Awake and alert. PSYCHIATRIC: Calm, pleasant. LABORATORY: WBC of 6, hemoglobin 8.3, platelets of 217. Sodium 138, potassium 3.8, BUN of 31, crea tinine 1.67, glucose of 81. ASSESSMENT AND PLAN: 1. Congestive heart failure ____ systolic dysfunction. 2. Pulmonary hypertension. 3. Ascites and liver cirrhosis. 4. History of alcohol use. 5. Anemia. 6. Paroxysmal atrial fibrillation, currently remains in sinus rhythm. 7. Gastric and colon cancer. RECOMMENDATIONS: We will continue with the current cardiac care. Anticoagulation on hold due to co ncern about the bleeding and severe anemia. I will decrease the amiodarone dose to 100 mg a day. W e will continue with low dose carvedilol as tolerated as well. Bumex will be continued as well. Rosalba keita planning as per internal medicine. Dictated By: COLIN BERGERON MD AV/LANG Conf#: [id number] DID#: [id number] CC: RICK WONG MD; ANDIE ISIDRO NP;*End*
[2017-01-13] MEDS: ATORVASTATIN 40 MG TAB PO SCH (21:54)
[2017-01-13] MEDS: ACETAMINOPHEN 325 MG TAB PO PRN (22:25)
[2017-01-14] VITALS (10 sets, daily range): BP systolic 93–141; BP diastolic 52–74; PULSE 53–60; RESP 18–19
[2017-01-14] MEDS: PANTOPRAZOLE (EC) 40 MG TAB PO SCH ×2 (06:24→17:22)
--- NOTE | 2017-01-14 07:46 | CONS ---
Date/Time of Note Date/Time of Note DATE: 01/14/17 TIME: 07:46 Assessment/Plan Assessment/Plan Chief Complaint/Hosp Course Impression: 1. Anemia: ben from chronic disease, occult blood negative x 2 2. h/o alcoholic cirrhosis 3. Ascites: ben secondary from CHF, contributed by his cirrhosis. 4. Acute on chronic CHF. Patient with most recent echocardiogram in 11/20/2016 with EF of 35% with stage III to stage IV diastolic dysfunction. 5. Pulmonary hypertension 3. Bilateral pleural effusion secondary to decompensated CHF. 4. Suspect pneumonia. 5. History of gastric and colon cancer. Patient status post surgery and chemotherapy. No active issue at this time. 6. Acute on chronic kidney disease. Monitor renal panel. diuretic per nephrology. Recommendation: 1. paracentesis PRN 2. although patient has negative occult blood, so at this time so urgent indication for endoscopic procedure 3. change H2 cecilia to PPI for better acid suppression and possible GIB 4. continue other supportive care per primary and other consultants. Problems: Consultation Date/Type/Reason Admit Date/Time Jan 07, 2017 at 22:50 Type of Consultation: GI 24 HR Interval Summary Free Text/Dictation DOING BETTER, NO N/V Exam/Review of Systems Vital Signs Vitals Vital Signs Date Time Temp Pulse Resp B/P Pulse Ox O2 Delivery O2 Flow Rate FiO2 01/14/17 04:48 98.0 68 18 108/61 96 01/12/17 04:27 Room Air 01/10/17 08:30 2.0 Intake and Output 01/13/17 01/13/17 01/14/17 15:00 23:00 07:00 Intake Total 1000 ml 300 ml Output Total 1200 ml 1100 ml Balance -200 ml -800 ml Exam Head: atraumatic, normocephalic Eyes: EOMI, nl conjunctiva, nl lids, nl sclera ENMT: mucosa pink and moist, nl external ears & nose, nl lips & teeth, nl nasal mucosa & septum Neck: non-tender, supple Respiratory: clear to auscultation, normal air movement Cardiovascular: nl pulses, regular rate and rhythm Gastrointestinal: bowel sounds, non-tender, soft Results Result Diagram: 01/13/1751901/13/17519 Medications Medications Current Medications Allopurinol (Zyloprim) 300 mg DAILY PO Last administered on 01/13/17 09:11; Admin Dose 300 MG; Start 01/08/17 at 09:00 Atorvastatin Calcium (Lipitor) 40 mg HS PO Last administered on 01/13/17 21:54 ; Admin Dose 40 MG; Start 01/08/17 at 21:00 Bumetanide (Bumex) 1 mg BID PO Last administered on 01/13/17 21:54; Admin Dose 1 MG; Start 01/08/17 at 09:00 Isosorbide Mononitrate (Imdur) 30 mg DAILY PO Last administered on 01/13/17 09 :11; Admin Dose 30 MG; Start 01/08/17 at 09:00 Heparin Sodium (Porcine) (Heparin (5000 Units/0.5 ml)) 5,000 unit BID SC Last administered on 01/13/17 21:58; Admin Dose 5,000 UNIT; Start 01/08/17 at 09:00 Carvedilol (Coreg) 1.5625 mg BID PO Last administered on 01/13/17 21:55; Admin Dose 1.5625 MG; Start 01/10/17 at 09:00 Acetaminophen (Tylenol Tab) 650 mg Q6H PRN PO PAIN AND OR ELEVATED TEMP Last administered on 01/13/17 22:25; Admin Dose 650 MG; Start 01/11/17 at 14:30 Ferrous Sulfate (Ferrous Sulfate (Ec)) 325 mg TID PO Last administered on 21:54; Admin Dose 325 MG; Start 01/11/17 at 21:00 Pantoprazole (Protonix Tab) 40 mg BID@18 PO Last administered on 01/14/17 06:24; Admin Dose 40 MG; Start 01/12/17 at 18:00 Amiodarone HCl (Cordarone) 100 mg DAILY PO ; Start 01/14/17 at 09:00 TOREY BORGES MD Jan 14, 2017 07:46
[2017-01-14] MEDS ORDERED: AMIODARONE 200 MG TAB PO SCH (09:00)
[2017-01-14] MEDS: ISOSORBIDE MONONITRATE(SR)30 MG TAB PO SCH (09:49)
[2017-01-14] MEDS: ALLOPURINOL 300 MG TAB PO SCH (09:49)
[2017-01-14] MEDS: BUMETANIDE 1 MG TAB PO SCH (09:50)
[2017-01-14] MEDS: FERROUS SULFATE (EC) 325 MG TAB PO SCH ×2 (09:50→12:15)
[2017-01-14] MEDS: HEPARIN 5,000 UNIT/0.5 ML SYG SC SCH (09:57)
[2017-01-14] MEDS ORDERED: AMIO200T2 PO (11:29)
[2017-01-14] MEDS ORDERED: CARV3.1260 PO (11:30)
[2017-01-14] MEDS ORDERED: FER325 PO (11:30)
[2017-01-14] MEDS ORDERED: PANT40TA4 PO (11:30)
[2017-01-14] MEDS ORDERED: BUME1TAB18 PO (11:30)
--- NOTE | 2017-01-14 11:32 | PDOCDIS ---
Discharge Instructions DIAGNOSIS Discharge Diagnosis: 1. Acute on chronic CHF 2. pulmonary hypertension 3. pleural effusion CONDITION Patient Condition: Stable HOME CARE INSTRUCTIONS: Diet Instructions: Reduced SodiumSpecial Diet: 2gm na FOLLOW UP/APPOINTMENTS Appointments 1. Follow up with Dr. Alfa Macias in one week 2. Follow up with Dr. uJan Gamboa in one week ANDIE ISIDRO Jan 14, 2017 11:32
--- NOTE | 2017-01-14 12:47 | PN ---
DATE: 01/14/2017 SUBJECTIVE: The patient is stable, no acute events overnight. No fevers, chills, nausea, vomiting. OBJECTIVE: VITAL SIGNS: Blood pressure is 104/59, respirations 19, pulse 58, temperature 98.0. HEENT: Head is normocephalic. NECK: Supple. HEART: Regular rate. LUNGS: Show diminished breath sounds at the base. ABDOMEN: Soft, nontender to palpation. No rebound or guarding. EXTREMITIES: Negative for clubbing, cyanosis. Trace edema. DERMATOLOGIC: No rashes. MUSCULOSKELETAL: No joint effusions. NEUROLOGIC: No change in exam. MEDICATIONS: Have been reviewed. LABORATORY DATA: Has been reviewed. No new labs. ASSESSMENT AND PLAN: 1. Nonoliguric acute kidney injury on top of chronic kidney disease stage IIIB/IV with previous bas michelle creatinine around 2 mg/dL. Etiology of acute kidney injury is secondary to hemodynamics. Pos sible intraabdominal hypertension due to underlying ascites and/or cardiorenal syndrome may also be contributing factors. The patient is status post paracentesis. At this point, renal function has i mproved with diuretic therapy. Continue current treatment plan. Continue supportive care, renally dose all medications. 2. Acute systolic/diastolic heart failure. Continue current medical management. Patient is clinic ally improving. Continue diuretic regimen. 3. Abdominal ascites secondary to cirrhosis, possible cardiac ascites as contributing factor. The patient is status post paracentesis. Follow up with gastroenterology. 4. Anemia of chronic disease. Continue to monitor hemoglobin and hematocrit levels. Continue Epog en. 5. Acute respiratory failure secondary to congestive heart failure. Continue medical management. The patient is improving. 6. Atrial fibrillation, currently rate controlled. Continue treatment plan. Follow up with cardio logy. 7. History of gastric and colon carcinoma. Dictated By: ANIL PERALES/LANG Conf#: [id number] DID#: [id number]
[2017-01-14 13:05] LABS: BASOPHILS % 0.4 % (0.0-2.0); EOSINOPHILS % 0.9 % (0.0-7.0); HEMATOCRIT 23.7 % (42.0-52.0); HEMOGLOBIN 8.2 g/dl (14.0-18.0); LYMPHOCYTES # 1.3 10^3/ul (0.8-2.9); LYMPHOCYTES % 23.3 % (15.0-51.0); MEAN CORPUSCULAR HEMOGLOBIN 31.4 pg (29.0-33.0); MEAN CORPUSCULAR HGB CONC 34.4 g/dl (32.0-37.0); MEAN CORPUSCULAR VOLUME 91.2 fl (82.0-101.0); MONOCYTE # 0.6 10^3/ul (0.3-0.9); MONOCYTES % 10.3 % (0.0-11.0); NEUTROPHIL # 3.5 10^3/ul (1.6-7.5); NEUTROPHILS % 65.1 % (39.0-77.0); PLATELET COUNT 211 10^3/UL (140-440); RED CELL DISTRIBUTION WIDTH 16.4 % (11.5-14.5); UNCORRECTED WBC 5.4 10^3/ul (4.8-10.8); WHITE BLOOD COUNT 5.4 10^3/ul (4.8-10.8)
[2017-01-14 13:08] LABS: CONDITION 1; LH ANALYZER COMMENTS 1
[2017-01-14 13:15] LABS: CREATININE 1.69 mg/dl (0.61-1.24)
--- NOTE | 2017-01-14 19:48 | PN ---
DATE: 01/14/2017 SUBJECTIVE: Discussed with the staff. Rhythm strip was reviewed. The patient remains in sinus rhyt hm. No chest pain or pressure. Breathing has improved. No more cough, no more orthopnea. MEDICATIONS: Reviewed. PHYSICAL EXAMINATION: VITAL SIGNS: Temperature 98.8, heart rate of 60, blood pressure 92/52, respiratory rate 18. HEENT: Normocephalic, atraumatic. Pupils are equal. CARDIOVASCULAR: Regular rate and rhythm. Systolic murmur. PULMONARY: No wheezes anteriorly. GASTROINTESTINAL: Soft, nontender, nondistended. EXTREMITIES: Positive ankle edema. NEUROLOGIC: Awake, alert. PSYCHIATRIC: Appeared to be calm, pleasant. LABORATORY: WBC of 5.4, hemoglobin 8.2, platelets of 211. Sodium 132, potassium 4, BUN of 32, crea tinine ____, glucose of 109. ASSESSMENT AND PLAN: 1. Congestive heart failure. 2. Pleural effusion. 3. Systolic dysfunction. 4. Paroxysmal atrial fibrillation. 5. Severe cardiomyopathy. 6. Cirrhosis of the liver. 7. History of alcohol use. 8. Paroxysmal atrial fibrillation, currently sinus rhythm. RECOMMENDATION: Will continue with the current cardiac care including low-dose amiodarone. He is n ot anticoagulated due to severe anemia. Discharge planning is in process. Dictated By: COLIN MANJARREZ/LANG Conf#: [id number] DID#: [id number] CC: ANIL CONNOR DO;*EndCC*
--- NOTE | 2017-01-15 12:06 | DS ---
DATE OF ADMISSION: 01/07/2017 DATE OF DISCHARGE: 01/14/2017 CONSULTANTS: 1. Dr. James Savage 2. Dr. Arun Shultz 3. Dr. Alfa Macias DISCHARGE DIAGNOSES: 1. Acute on chronic congestive heart failure with systolic dysfunction. 2. Pulmonary hypertension. 3. Bilateral pleural effusion secondary to decompensated congestive heart failure. 4. Suspected pneumonia. 5. Cardiomyopathy with ejection fraction of 35%. 6. Decompensated liver disease with history of coagulopathy. 7. Anemia of chronic disease. 8. Paroxysmal atrial fibrillation. 9. History of gastric and colon cancer. 10. Chronic kidney disease. 11. Abdominal ascites. HOSPITAL COURSE: This is a 66-year-old male with past medical history of cardiomyopathy with systol ic dysfunction and an ejection fraction of 35%, CKD, paroxysmal atrial fibrillation, decompensated l iver cirrhosis, alcohol abuse, gastric and colon cancer status post surgery and chemotherapy, anemia , who came to [facility] secondary to reports of increased shortness of breath wit h bilateral lower extremity edema. Patient reported symptoms are chronic but however, they were pro gressively getting worse for the past 2 days. He denied any chest pain. Of note, he was admitted a bout 1 month ago due to similar symptoms. At that time, he also had abdominal distention and lower extremity swelling. He did have a CT scan of his chest at that time, did show a large right pleural effusion which was partially loculated. He did receive thoracentesis and did have initially a ches t tube for drainage. He also underwent a paracentesis for drainage of his abdominal ascites. Durin g this admission, he come to [facility] and was noted with a blood pressure of 99/ 59. He also had a hemoglobin of 8.3, down from 9.4 and also acute kidney injury with creatinine not ed at 2.3. He also had elevated BNP. He did have a chest x-ray that did show cardiomegaly with daquan ateral pleural effusions. Patient was again consulted by nephrologists for his renal dysfunction an d by his samples and repairs preparer, Dr. Alfa Macias. He was being optimized with his cardiovascular medications and diuretic medication. The patient did also undergo paracentesis again due to his abdominal dist ention and abdominal pain with noted 0.825 liters of serous fluid aspirated. He did tolerate the pr ocedure well and he did have good response with his breathing improved status post procedure. The p atient was otherwise optimized medically. He was continued on Bumex medication with careful monitor ing of his renal function. For his history of pulmonary hypertension, we did provide him with oxyge n as needed; however, he was able to titrate off of oxygen well. He did tolerate Bumex medication i n regards to his bilateral pleural effusion and his respiratory status did continue to improve. He was empirically treated with antibiotics for suspicion of pneumonia. He was continued also on amiod arone for his history of paroxysmal atrial fibrillation and he was optimized on beta cecilia for his history of CHF. He was also continued on statin medication for dyslipidemia. The patient was note d with significant drop in his hemoglobin as well as hematocrit. The patient was noted to be anemic and did require transfusion of packed red blood cells. We did empirically get a vice president & general manager [employer] [place] to follow the patient for concern of possible gastrointestinal bleed. Cultures was done and was ne gative for any kind of bleed. We did optimize the patient with PPI medication. As previously venkat guerrero during his course of stay, he did improve. He did report better breathing and his abdominal di stention did subside. The plan of care was discussed with the patient and the patient did verbalize his understanding. On the day of discharge, the patient was in stable condition. Discharge physical exam and vital signs are stable. CONDITION: Stable. DISCHARGE PLAN: 1. Patient's condition is stable. 2. Diet is reduced sodium, 2 gram sodium. 3. The patient to follow up with Dr. Alfa aMcias within a week. 4. The patient to follow up with Dr. Juan Gamboa in a week. DISCHARGE MEDICATIONS: 1. Amiodarone 100 mg p.o. daily. 2. Carvedilol 1.5625 mg p.o. b.i.d. 3. Ferrous sulfate 325 mg p.o. t.i.d. 4. Protonix 40 mg p.o. b.i.d. 5. Allopurinol 300 mg p.o. daily. 6. Eliquis 2.5 mg p.o. b.i.d. 7. Atorvastatin 40 mg p.o. at bedtime. 8. Isosorbide mononitrate 30 mg p.o. daily. DISCHARGE PROCESS TIME: 40 minutes. Discussed plan of care with Dr. Dinh. Dictated By: ANDIE ISIDRO RECEPTIONIST CLERK for ADELITA DINH MD RR/NTS Conf#: [id number] DID#: [id number] CC: RICK WONG MD;*EndCC*
== END 2017-01-14 19:25 | disposition home or self-care (01) | DRG 291 ==
LOC: E/R 18:58 → MS4 22:50
PROVIDERS: ADMIT Internal Medicine; ATTEND Internal Medicine
PROC: 0W9G3ZZ Drainage of Peritoneal Cavity, Percutaneous Approach (ICD-10-PCS; principal; 2017-01-09)
PROC: 30233N1 Transfusion of Nonautologous Red Blood Cells into Peripheral Vein, Percutaneous Approach (ICD-10-PCS; 2017-01-12)
DX: I50.43 Acute on chronic combined systolic (congestive) and diastolic (congestive) heart failure (principal); J18.9 Pneumonia, unspecified organism; J96.00 Acute respiratory failure, unspecified whether with hypoxia or hypercapnia; N17.9 Acute kidney failure, unspecified; I27.2 Other secondary pulmonary hypertension; R18.8 Other ascites; I42.9 Cardiomyopathy, unspecified; K72.90 Hepatic failure, unspecified without coma; N18.9 Chronic kidney disease, unspecified; I48.0 Paroxysmal atrial fibrillation; D64.9 Anemia, unspecified; I12.9 Hypertensive chronic kidney disease with stage 1 through stage 4 chronic kidney disease, or unspecified chronic kidney disease; Z85.038 Personal history of other malignant neoplasm of large intestine
CPT/HCPCS: 36415; 36430; 71010; 71250; 80048; 80053; 81003; 82042; 82043; 82150; 82270; 82728; 83540; 83615; 83735; 83880; 84100; 84155; 84157; 84300; 84484; 85014; 85018; 85025; 85610; 85730; 86850; 86900; 86901; 86920; 87070; 87102; 87116; 88104; 88305; 88313; 89050; 93005; 97162; J0886; J7040; P9016

== ENCOUNTER 2017-02-14 01:14 | Inpatient (IN) | payer MEDICARE, OTHER ==
[~2017-02-14] VITALS: Ht 175.3 cm; Wt 59.9 kg
[~2017-02-14 01:14] MED LIST changes: +ALLO300T2 PO; +AMIO200T2 PO; +APIX2.5T PO; -ASPI81TA3 PO; +BUME1TAB18 PO; -CEPH500C PO; -DOCU-144 PO; -FAMO20TA18 PO; +FER325 PO; -FURO20TA3 PO; +ISOS30TA5 PO; -LACT10SO5 PO; -LEVO500T72 PO; -ONDA4TAB8 PO; +PANT40TA4 PO; -SPIR25TA PO
[2017-02-14 01:20] VITALS: Ht 175.3 cm; Wt 59.9 kg
[2017-02-14] MEDS ORDERED: ONDANSETRON 4 MG INJ IV STA (02:21)
[2017-02-14 02:23] LABS: MODE NASAL CANNULA; MetHgb Venous 0.4 %; Sample Type Blood venous; Venous COHb 0.9 %; Venous Fraction OxyHgb 43.9 %; Venous Total Hemglobin 10.4 g/dl
--- NOTE | 2017-02-14 02:41 | RADRPT ---
PROCEDURE: XR Chest. CLINICAL INDICATION: Shortness of breath. TECHNIQUE: Single frontal chest x-ray. COMPARISON: 01/07/2017 FINDINGS: Patient is rotated to the right.. The heart is enlarged.. There is mild CHF.. There are redemonstr ated right greater than left pleural effusions associated basilar atelectasis versus infiltrate, not significantly changed.. There is no pneumothorax. Bones are unchanged.. IMPRESSION: Cardiomegaly. Mild CHF, increased.. Right greater than pleural effusion with associated basilar ate lectasis versus infiltrates, not seen in the change. RPTAT: HMVK .Timbo Delgado MD, MD Date Time Electronically viewed and signed by .Timbo Delgado MD, MD on 02/14/2017 02:41 .K/
[2017-02-14 02:47] LABS: ADD SCAN DIFF NO
[2017-02-14 02:57] LABS: ALBUMIN 3.5 g/dl (3.3-4.9); CHLORIDE 107 mmol/L (97-110); SODIUM 136 mmol/L (135-144)
[2017-02-14 03:00] LABS: ALANINE AMINOTRANSFERASE 26 IU/L (13-69); ALBUMIN/GLOBULIN RATIO 0.83; ALKALINE PHOSPHATASE 228 IU/L (42-121); ANION GAP 20 (8-16); ASPARTATE AMINO TRANSFERASE 26 IU/L (15-46); BILIRUBIN,INDIRECT 0.2 mg/dl (0-1.1); BILIRUBIN,TOTAL 0.2 mg/dl (0.2-1.3); BLOOD UREA NITROGEN 63 mg/dl (7-20); CARBON DIOXIDE 16 mmol/L (21-31); CREATININE 2.35 mg/dl (0.61-1.24); GLUCOSE 106 mg/dl (70-220); TOTAL PROTEIN 7.7 g/dl (6.1-8.1)
[2017-02-14 03:01] LABS: CALCIUM 8.5 mg/dl (8.4-10.2)
[2017-02-14 03:02] LABS: BASOPHIL # 0.1 10^3/ul (0.0-0.1); BASOPHILS % 0.8 % (0.0-2.0); EOSINOPHILS # 0.1 10^3/ul (0.0-0.5); EOSINOPHILS % 1.1 % (0.0-7.0); HEMOGLOBIN 9.2 g/dl (14.0-18.0); LYMPHOCYTES # 1.8 10^3/ul (0.8-2.9); LYMPHOCYTES % 20.5 % (15.0-51.0); MEAN CORPUSCULAR HEMOGLOBIN 32.2 pg (29.0-33.0); MEAN CORPUSCULAR HGB CONC 31.7 g/dl (32.0-37.0); MEAN CORPUSCULAR VOLUME 101.4 fl (82.0-101.0); MEAN PLATELET VOLUME 11.5 fl (7.4-10.4); MONOCYTE # 0.9 10^3/ul (0.3-0.9); MONOCYTES % 10.1 % (0.0-11.0); NEUTROPHIL # 5.8 10^3/ul (1.6-7.5); NEUTROPHILS % 65.6 % (39.0-77.0); PLATELET COUNT 300 10^3/UL (140-415); RED BLOOD COUNT 2.86 10^6/ul (4.70-6.10); RED CELL DISTRIBUTION WIDTH 16.9 % (11.5-14.5); WHITE BLOOD COUNT 8.9 10^3/ul (4.8-10.8)
[2017-02-14] MEDS ORDERED: NA POLYST SULFON 15 GM/60 ML BTL PO STA (03:05)
[2017-02-14] MEDS ORDERED: CA GLUCONATE (GM) 10% 10ML INJ IV STA (03:05)
[2017-02-14] MEDS ORDERED: DEXTROSE 50% 50 ML SYRINGE IV STA ×2 (03:05→03:09)
[2017-02-14] MEDS ORDERED: NA BICARBONATE 8.4% 50 ML SYG IV STA (03:05)
[2017-02-14] MEDS ORDERED: ALBUTEROL 0.5% (NEB) 2.5 MG/0.5 ML AMP INH STA (03:05)
[2017-02-14] MEDS ORDERED: INSULIN REGULAR, HUMAN 100 UNIT/1 ML 3ML VIAL IV STA (03:05)
[2017-02-14 03:07] LABS: POTASSIUM 7.3 mmol/L (3.5-5.1)
[2017-02-14 03:09] LABS: B-TYPE NATRIURETIC PEPTIDE 16700 PG/ML (0-125)
[2017-02-14] MEDS ORDERED: SOD CHLORIDE 0.9% 500 ML IV STA (03:10)
[2017-02-14 03:16] LABS: TROPONIN-I < 0.012 ng/ml (0.00-0.12)
[2017-02-14 03:29] LABS: INR 1.49; PROTIME 18.1 Sec (12.2-14.2); PT RATIO 1.4
[2017-02-14 03:30] LABS: PARTIAL THROMBOPLASTIN TIME 43.4 Sec (25.0-35.0)
[2017-02-14 03:41] LABS: MAGNESIUM 2.5 mg/dl (1.7-2.5); PHOSPHORUS 4.5 mg/dl (2.5-4.9)
--- NOTE | 2017-02-14 04:40 | ERA ---
ER Documentation Chief Complaint Date/Time DATE: 02/14/17 TIME: 04:25 Chief Complaint Dizziness, OLSON and SOB HPI 66-year-old male with a history of CHF, atrial fibrillation, and CKD presenting with complaints of shortness of breath. Patient states that his symptoms have been going on for about 3 days. He has had associated nonbloody and nonbilious nausea and vomiting. He denies any associated chest pain. He complains of associated generalized weakness and poor appetite. He is urinating very little every day. No fevers, chills, cough, abdominal pain, or dysuria. ROS All systems reviewed and are negative except as per history of present illness. Medications Home Meds Active Scripts Pantoprazole* (Pantoprazole*) 40 Mg Tablet.dr, 40 MG PO BID@06,18 for 30 Days Prov:ANDIE ISIDRO 01/14/17 Ferrous Sulfate* (Ferrous Sulfate*) 325 Mg Tabec, 325 MG PO TID for 30 Days, TAB Prov:ANDIE ISIDRO 01/14/17 Carvedilol* (Carvedilol*) 3.125 Mg Tablet, 1.5625 MG PO BID for 30 Days, TAB Prov:ANDIE ISIDRO 01/14/17 Bumetanide* (Bumetanide*) 1 Mg Tablet, 1 MG PO BID for 30 Days, TAB Prov:ANDIE ISIDRO 01/14/17 Amiodarone Hcl* (Amiodarone Hcl*) 200 Mg Tablet, 100 MG PO DAILY for 30 Days, TAB Prov:ANDIE ISIDRO 01/14/17 Reported Medications Isosorbide Mononitrate* (Isosorbide Mononitrate*) 30 Mg Tab.er.24h, 30 MG PO DAILY, TAB 01/07/17 Apixaban* (Eliquis*) 2.5 Mg Tablet, 2.5 MG PO BID, TAB 01/07/17 Allopurinol* (Allopurinol*) 300 Mg Tablet, 300 MG PO DAILY, TAB 01/07/17 Atorvastatin* (Atorvastatin*) 40 Mg Tablet, 40 MG PO HS, TAB 09/07/14 Allergies Allergies: Coded Allergies: No Known Allergy (Verified , 01/07/17) PMhx/Soc History of Surgery: No Anesthesia Reaction: No Hx Neurological Disorder: No Hx Respiratory Disorders: Yes (Resp.failure) Hx Cardiac Disorders: Yes (Cardiomyopathy, CHF) Hx Psychiatric Problems: No Hx Miscellaneous Medical Probl: Yes (cardiomyopathy,afib, decompensated liver cirrhosis, gastirc colon) Hx Substance Use: No Hx Tobacco Use: No Smoking Status: Unknown if ever smoked FmHx Family History: No diabetes Physical Exam Vitals Vital Signs Date Time Temp Pulse Resp B/P Pulse Ox O2 Delivery O2 Flow Rate FiO2 02/14/17 05:12 65 23 128/79 100 Room Air 02/14/17 04:16 64 22 100 Nasal Cannula 2.0 21 02/14/17 02:30 Nasal Cannula 02/14/17 02:25 Nasal Cannula 3 02/14/17 02:25 53 21 126/79 100 02/14/17 01:20 98.8 58 20 127/80 99 Physical Exam Const: Ill-appearing, nondiaphoretic, speaking in short sentences Head: Atraumatic Eyes: Normal Conjunctiva ENT: Dry oral mucosa Neck: Full range of motion..~ No meningismus. Resp: Tachypneic, decreased breath sounds bilaterally, right greater than left up to mid lung, no crackles or wheezes Cardio: Regular rate, irregular rhythm, no murmurs Abd: Soft, non tender, non distended. Normal bowel sounds Skin: No petechiae or rashes Back: No midline or flank tenderness Ext: No cyanosis, 1+ bilateral lower extremity edema Neur: Awake and alert and oriented 3, moving all extremities, cranial nerves intact Psych: Normal Mood and Affect Result Diagram: 02/14/17 0257 02/14/17 0220 Results 24 hrs Laboratory Tests Test 02/14/17 02:00 02/14/17 02:20 02/14/17 02:57 02/14/17 04:18 Blood Gas Specimen Source Blood venous Arterial Blood Date Drawn 02/14/2017 2:10:00 AM Arterial Blood Gas Puncture Site VENOUS LINE Alex Test N/A Venous Blood pH 7.317 Venous Blood pCO2 (Temp Corrected) 30.7mmHG Venous Blood pO2 (Temp Corrected) 27.7mmHG Venous Blood HCO3 15.4mmol/L Venous Blood Oxygen Saturation 44.5mmHG Venous Blood Base Excess -9.7mmol/L Venous Blood Total Hemoglobin 10.4g/dl Venous Blood Oxyhemoglobin 43.9% Venous Blood Methemoglobin 0.4% Carboxyhemoglobin 0.9% Blood Gas Temperature 37.0C Blood Gas Modality NASAL CANNULA FiO2 28.0% Blood Gas Notified Whom MA Blood Gas Notified Time 02/14/2017 2:21:00 AM Sodium Level 136mmol/L Potassium Level 7.3mmol/L Chloride Level 107mmol/L Carbon Dioxide Level 16mmol/L Anion Gap 20 Blood Urea Nitrogen 63mg/dl Creatinine 2.35mg/dl Glucose Level 106mg/dl Calcium Level 8.5mg/dl Phosphorus Level 4.5mg/dl Magnesium Level 2.5mg/dl Total Bilirubin 0.2mg/dl Direct Bilirubin 0.00mg/dl Indirect Bilirubin 0.2mg/dl Aspartate Amino Transf (AST/SGOT) 26IU/L Alanine Aminotransferase (ALT/SGPT) 26IU/L Alkaline Phosphatase 228IU/L Troponin I < 0.012ng/ml B-Type Natriuretic Peptide 01214AH/ML Total Protein 7.7g/dl Albumin 3.5g/dl Globulin 4.20g/dl Albumin/Globulin Ratio 0.83 White Blood Count 8.910^3/ul Red Blood Count 2.8610^6/ul Hemoglobin 9.2g/dl Hematocrit 29.0% Mean Corpuscular Volume 101.4fl Mean Corpuscular Hemoglobin 32.2pg Mean Corpuscular Hemoglobin Concent 31.7g/dl Red Cell Distribution Width 16.9% Platelet Count 39540^3/UL Mean Platelet Volume 11.5fl Neutrophils % 65.6% Lymphocytes % 20.5% Monocytes % 10.1% Eosinophils % 1.1% Basophils % 0.8% Nucleated Red Blood Cells % 0.0/100WBC Neutrophils # 5.810^3/ul Lymphocytes # 1.810^3/ul Monocytes # 0.910^3/ul Eosinophils # 0.110^3/ul Basophils # 0.110^3/ul Nucleated Red Blood Cells # 0.010^3/ul Prothrombin Time 18.1Sec Prothrombin Time Ratio 1.4 INR International Normalized Ratio 1.49 Activated Partial Thromboplast Time 43.4Sec Bedside Glucose 227mg/dL Current Medications Medications (Trade) Dose Ordered Sig/Roscoe Route PRN Reason Start Time Stop Time Status Last Admin Dose Admin Ondansetron HCl (Zofran Inj) 4 mg ONCE STAT IV 02/14/17 02:21 02/14/17 02:22 DC 02/14/17 02:38 Insulin Human Regular (Humulin R) 10 unit ONCE STAT IV 02/14/17 03:05 02/14/17 03:08 DC 02/14/17 03:26 Dextrose (D50w Syringe) 50 ml ONCE STAT IV 02/14/17 03:05 02/14/17 03:08 DC 02/14/17 03:24 Sodium Polystyrene Sulfonate (Kayexalate) 30 gm ONCE STAT PO 02/14/17 03:05 02/14/17 03:08 DC 02/14/17 03:46 Albuterol (Proventil 0.5% (Neb)) 15 mg ONCE STAT INH 02/14/17 03:05 02/14/17 03:08 DC 02/14/17 04:07 Sodium Bicarbonate (Na Bicarb 8.4% Syg) 50 ml ONCE STAT IV 02/14/17 03:05 02/14/17 03:08 DC 02/14/17 03:19 Calcium Gluconate (Ca Gluc) 1 gm ONCE STAT IV 02/14/17 03:05 02/14/17 03:08 DC 02/14/17 03:19 Dextrose 50 ml 50 ml ONCE STAT IV 02/14/17 03:09 02/14/17 03:11 DC 02/14/17 03:24 Sodium Chloride (NS) 500 ml @ 500 mls/hr Q1H STAT IV 02/14/17 03:10 02/14/17 04:09 DC 02/14/17 03:46 Procedures/MDM EMERGENT LABS AND DIAGNOSTIC STUDIES: Lab Results above were reviewed and interpreted by nj. Labs showed hyperkalemia, acute renal failure, anemia, BNP elevated 12-lead EKG was interpreted by Dana Calhoun MD: Atrial fibrillation at 60 bpm Right bundle branch block, QTC [address] or T wave changes suggestive of acute ischemia or STEMI. Radiology Results as interpreted by Radiology below were reviewed by SGwendolyn Calhoun MD: Chest x-ray: Cardiomegaly. Mild CHF, increased.. Right greater than pleural effusion with associated basilar atelectasis versus infiltrates Initial Nursing notes reviewed. Previous Medical Records requested via the Electronic Health Record. EMERGENCY DEPARTMENT COURSE / MEDICAL DECISION MAKING: Patient is presenting with signs and symptoms of CHF exacerbation. His vitals are stable and he is normoxic. Labs are consistent with acute renal failure and hyperkalemia. He was treated with calcium chloride, bicarb, nebulized albuterol, insulin and glucose IV. A small IV fluid bolus was given for possible component of prerenal azotemia. There is no evidence of an acute NM at this time. Patient will need admission for further workup and possible dialysis for his renal failure, anuria, and fluid overload. Critical Care Time: 40 minutes Treatments/Evaluations: Close monitoring and treatment of unstable vital signs, cardiorespiratory, and neurologic status, while maintaining tight balance of fluid, respiratory, and cardiac interventions. This time includes discussing the case with the patient and the patients family. This time does not include all procedures stated elsewhere in this record. This time also includes reviewing old records, labs and radiological studies. This time includes examining and re-examining the patient. Additionally, this time also includes arranging care with admitting and consulting physicians. Accepting Care Team: Current data and ongoing care discussed. Time: Time of admission Primary Provider: Darren Consulting: none Outstanding Data: none Departure Diagnosis: Primary Impression: Acute exacerbation of CHF (congestive heart failure) Qualified Code: I50.9 - Acute on chronic congestive heart failure, unspecified congestive heart failure type Additional Impressions: Acute renal failure Qualified Code: N17.9 - Acute renal failure, unspecified acute renal failure type Hyperkalemia Condition: Critical ALIX CALHOUN MD Feb 14, 2017 04:40
--- NOTE | 2017-02-14 05:28 | HP ---
Date/Time of Note Date/Time of Note DATE: 02/14/17 TIME: 05:27 Assessment/Plan VTE Prophylaxis VTE Prophylaxis Intervention: anti-embolic stocking Assessment/Plan Assessment/Plan 1) Acute exacerbation of CHF (congestive heart failure) with BNP = 16,700 - Admit to ICU - Cardiology Consult - Gentle Diuresis while maintaining adequate Blood Pressure - NPO for now 2) Acute Kidney Injury - Monitor, Fluids needed, but patient is overloaded - BMP in AM 3) Hyperkalemia, K+ = 7.3 - Repeat labs already ordered. - Continue treatment until K+ Normalizes between 4 and 4.5 4) Anemia, Hgb = 9.2, but no obvious bleeding - Stool for OB - Repeat CBC in AM HPI/ROS Admit Date/Time Admit Date/Time Hx of Present Illness Chief Complaint Dizziness, OLSON and SOB HPI 66-year-old male with a history of CHF, atrial fibrillation, and CKD presenting with complaints of shortness of breath. Patient states that his symptoms have been going on for about 3 days. He has had associated nonbloody and nonbilious nausea and vomiting. He denies any associated chest pain. He complains of associated generalized weakness and poor appetite. He is urinating very little every day. No fevers, chills, cough, abdominal pain, or dysuria. ROS General: Admits: Fatigue, Chills, Poor Appetite, Generalized Body Weakness Denies: Fever, Abnormal Weight Loss Eyes: Admits: Denies: Blurry Vision, Double Vision HENT: Admits: Denies: Ear Pain/Pressure, Runny/Stuffy Nose, Sore Throat Cardiovascular: Admits: Denies: Chest Pain, Palpitations, Leg Swelling Pulmonary: Admits: Shortness of Breath Denies: Cough, Wheeze Gastrointestinal: Admits: Nausea, Vomiting, Denies: Abdominal Pain, Diarrhea, Blood in Stool, Black-Colored Stool Urogenital: Admits: Denies: Burning with Urination, Urinary Frequency Musculoskeletal: Admits: Denies: Joint Pain, Joint Swelling, Muscle Pain Neurological: Admits: Denies: Headache, Dizziness, Numbness, Tingling, Shooting Pains Integumentary: Admits: Denies: Rash, Itch PMH/Family/Social Past Medical History CHF, Respiratory Failure, Atrial Fibrillation, Cardiomyopathy,Decompensated Liver Cirrhosis Past Surgical History Past Surgical Hx: no surgical history, endoscopy Social History Smoking Status: Unknown if ever smoked Exam/Review of Systems Vital Signs Vitals Vital Signs Date Time Temp Pulse Resp B/P Pulse Ox O2 Delivery O2 Flow Rate FiO2 02/14/17 05:12 65 23 128/79 100 Room Air 02/14/17 04:16 2.0 21 02/14/17 01:20 98.8 Exam Exam General: Frail, ill-appearing Omani-speaking male who appears older than his stated age, receiving O2 via mask while lying on gurney in the ER. In no acute distress, but he appears very tired. Eyes: Sclera White, EOMI HENT: Normocephalic/Atraumatic, External Ears/Nose Normal, Moist Mucus Membranes Neck: Supple, Trachea Midline Cardiovascular: Normal Rate, Normal Rhythm, Normal S1 and S2, No Murmur, No Extra Sounds Pulmonary: Clear to Auscultation Bilaterally, Normal Respiratory Effort, No Rales, Rhonchi or Wheezes Gastrointestinal: Normoactive Bowel Sounds, Soft, Non-Tender/Non-Distended, No Hepatosplenomegaly Appreciated, No Pulsatile Masses Urogenital: Deferred Musculoskeletal: Normal Muscle Bulk and Tone Neurological: CN II - XII Grossly Intact, Non-Focal, Speech Normal Integumentary: Normal Moisture and Temperature, Good Turgor, No Jaundice, No Rash Lymphatic: No Cervical Lymphadenopathy Psychiatric: Appropriate Mood and Affect, Good Eye Contact Labs Result Diagram: 02/14/177 02/14/17 0220 Medications Medications Home Meds Active Scripts Pantoprazole* (Pantoprazole*) 40 Mg Tablet.dr, 40 MG PO BID@,18 for 30 Days Prov:ANDIE ISIDRO 01/14/17 Ferrous Sulfate* (Ferrous Sulfate*) 325 Mg Tabec, 325 MG PO TID for 30 Days, TAB Prov:ANDIE ISIDRO 01/14/17 Carvedilol* (Carvedilol*) 3.125 Mg Tablet, 1.5625 MG PO BID for 30 Days, TAB Prov:ANDIE ISIDRO 01/14/17 Bumetanide* (Bumetanide*) 1 Mg Tablet, 1 MG PO BID for 30 Days, TAB Prov:ANDIE ISIDRO 01/14/17 Amiodarone Hcl* (Amiodarone Hcl*) 200 Mg Tablet, 100 MG PO DAILY for 30 Days, TAB Prov:ANDIE ISIDRO 01/14/17 Reported Medications Isosorbide Mononitrate* (Isosorbide Mononitrate*) 30 Mg Tab.er.24h, 30 MG PO DAILY, TAB 01/07/17 Apixaban* (Eliquis*) 2.5 Mg Tablet, 2.5 MG PO BID, TAB 01/07/17 Allopurinol* (Allopurinol*) 300 Mg Tablet, 300 MG PO DAILY, TAB 01/07/17 Atorvastatin* (Atorvastatin*) 40 Mg Tablet, 40 MG PO HS, TAB 09/07/14 Current Medications Medications (Trade) Dose Ordered Sig/[place] Route PRN Reason Start Time Stop Time Status Last Admin Dose Admin Ondansetron HCl (Zofran Inj) 4 mg ONCE STAT IV 02/14/17 02:21 02/14/17 02:22 DC 02/14/17 02:38 Insulin Human Regular (Humulin R) 10 unit ONCE STAT IV 02/14/17 03:05 02/14/17 03:08 DC 02/14/17 03:26 Dextrose (D50w Syringe) 50 ml ONCE STAT IV 02/14/17 03:05 02/14/17 03:08 DC 02/14/17 03:24 Sodium Polystyrene Sulfonate (Kayexalate) 30 gm ONCE STAT PO 02/14/17 03:05 02/14/17 03:08 DC 02/14/17 03:46 Albuterol (Proventil 0.5% (Neb)) 15 mg ONCE STAT INH 02/14/17 03:05 02/14/17 03:08 DC 02/14/17 04:07 Sodium Bicarbonate (Na Bicarb 8.4% Syg) 50 ml ONCE STAT IV 02/14/17 03:05 02/14/17 03:08 DC 02/14/17 03:19 Calcium Gluconate (Ca Gluc) 1 gm ONCE STAT IV 02/14/17 03:05 02/14/17 03:08 DC 02/14/17 03:19 Dextrose 50 ml 50 ml ONCE STAT IV 02/14/17 03:09 02/14/17 03:11 DC 02/14/17 03:24 Sodium Chloride (NS) 500 ml @ 500 mls/hr Q1H STAT IV 02/14/17 03:10 02/14/17 04:09 DC 02/14/17 03:46 Procedures Procedures Laboratory Tests Test 02/14/17 02:00 02/14/17 02:20 02/14/17 02:57 02/14/17 04:18 Blood Gas Specimen Source Blood venous Arterial Blood Date Drawn 02/14/2017 2:10:00 AM Arterial Blood Gas Puncture Site VENOUS LINE Alex Test N/A Venous Blood pH 7.317 Venous Blood pCO2 (Temp Corrected) 30.7mmHG Venous Blood pO2 (Temp Corrected) 27.7mmHG Venous Blood HCO3 15.4mmol/L Venous Blood Oxygen Saturation 44.5mmHG Venous Blood Base Excess -9.7mmol/L Venous Blood Total Hemoglobin 10.4g/dl Venous Blood Oxyhemoglobin 43.9% Venous Blood Methemoglobin 0.4% Carboxyhemoglobin 0.9% Blood Gas Temperature 37.0C Blood Gas Modality NASAL CANNULA FiO2 28.0% Blood Gas Notified Whom MA Blood Gas Notified Time 02/14/2017 2:21:00 AM Sodium Level 136mmol/L Potassium Level 7.3mmol/L Chloride Level 107mmol/L Carbon Dioxide Level 16mmol/L Anion Gap 20 Blood Urea Nitrogen 63mg/dl Creatinine 2.35mg/dl Glucose Level 106mg/dl Calcium Level 8.5mg/dl Phosphorus Level 4.5mg/dl Magnesium Level 2.5mg/dl Total Bilirubin 0.2mg/dl Direct Bilirubin 0.00mg/dl Indirect Bilirubin 0.2mg/dl Aspartate Amino Transf (AST/SGOT) 26IU/L Alanine Aminotransferase (ALT/SGPT) 26IU/L Alkaline Phosphatase 228IU/L Troponin I < 0.012ng/ml B-Type Natriuretic Peptide 23176KM/ML Total Protein 7.7g/dl Albumin 3.5g/dl Globulin 4.20g/dl Albumin/Globulin Ratio 0.83 White Blood Count 8.910^3/ul Red Blood Count 2.8610^6/ul Hemoglobin 9.2g/dl Hematocrit 29.0% Mean Corpuscular Volume 101.4fl Mean Corpuscular Hemoglobin 32.2pg Mean Corpuscular Hemoglobin Concent 31.7g/dl Red Cell Distribution Width 16.9% Platelet Count 26420^3/UL Mean Platelet Volume 11.5fl Neutrophils % 65.6% Lymphocytes % 20.5% Monocytes % 10.1% Eosinophils % 1.1% Basophils % 0.8% Nucleated Red Blood Cells % 0.0/100WBC Neutrophils # 5.810^3/ul Lymphocytes # 1.810^3/ul Monocytes # 0.910^3/ul Eosinophils # 0.110^3/ul Basophils # 0.110^3/ul Nucleated Red Blood Cells # 0.010^3/ul Prothrombin Time 18.1Sec Prothrombin Time Ratio 1.4 INR International Normalized Ratio 1.49 Activated Partial Thromboplast Time 43.4Sec Bedside Glucose 227mg/dL EK-lead EKG was interpreted by Dana Calhoun MD: Normal Sinus Rhythm with ventricular rate of [] beats per minute Normal axis Normal intervals No acute ST or T wave changes suggestive of acute ischemia or STEMI. RADIOLOGY: PROCEDURE: XR Chest. CLINICAL INDICATION: Shortness of breath. TECHNIQUE: Single frontal chest x-ray. COMPARISON: 01/07/2017 FINDINGS: Patient is rotated to the right.. The heart is enlarged.. There is mild CHF.. There are redemonstrated right greater than left pleural effusions associated basilar atelectasis versus infiltrate, not significantly changed.. There is no pneumothorax. Bones are unchanged.. IMPRESSION: Cardiomegaly. Mild CHF, increased.. Right greater than pleural effusion with associated basilar atelectasis versus infiltrates, not seen in the change. DANETTE ISSA DO Feb 14, 2017 05:28 43.4Sec Bedside Glucose 227mg/dL EK-lead EKG was interpreted by Dana Calhoun MD: Normal Sinus Rhythm with ventricular rate of [] beats per minute Normal axis Normal intervals No acute ST or T wave changes suggestive of acute ischemia or STEMI. RADIOLOGY: PROCEDURE: XR Chest. CLINICAL INDICATION: Shortness of breath. TECHNIQUE: Single frontal chest x-ray. COMPARISON: 01/07/2017 FINDINGS: Patient is rotated to the right.. The heart is enlarged.. There is mild CHF.. There are redemonstrated right greater than left pleural effusions associated basilar atelectasis versus infiltrate, not significantly changed.. There is no pneumothorax. Bones are unchanged.. IMPRESSION: Cardiomegaly. Mild CHF, increased.. Right greater than pleural effusion with associated basilar atelectasis versus infiltrates, not seen in the change. DANETTE ISSA DO Feb 14, 2017 05:28 TECHNIQUE: Single frontal chest x-ray. COMPARISON: 01/07/2017 FINDINGS: Patient is rotated to the right.. The heart is enlarged.. There is mild CHF.. There are redemonstrated right greater than left pleural effusions associated basilar atelectasis versus infiltrate, not significantly changed.. There is no pneumothorax. Bones are unchanged..
[2017-02-14] MEDS ORDERED: METOCLOPRAMIDE 10 MG INJ IV PRN (05:30)
[2017-02-14 06:04] LABS: CREATININE 2.17 mg/dl (0.61-1.24)
[2017-02-14 06:05] LABS: CALCIUM 8.5 mg/dl (8.4-10.2)
[2017-02-14 06:13] LABS: POTASSIUM 6.4 mmol/L (3.5-5.1)
[2017-02-14 06:36] VITALS: TEMP 98.9
[2017-02-14 06:36] LABS: ADD UMIC NO; URINE BILIRUBIN (Dip) NEGATIVE (NEGATIVE); URINE BLOOD (Dip) NEGATIVE (NEGATIVE); URINE COLOR LT. YELLOW (YELLOW); URINE KETONES (Dip) NEGATIVE (NEGATIVE); URINE LEUKOCYTE ESTERASE (Dip) NEGATIVE (NEGATIVE); URINE NITRITE (Dip) NEGATIVE (NEGATIVE); URINE TOTAL PROTEIN (Dip) NEGATIVE (NEGATIVE); URINE UROBILINOGEN (Dip) 0.2 E.U./dL (0.1-1.0)
[2017-02-14] MEDS: PANTOPRAZOLE (EC) 40 MG TAB PO SCH ×2 (07:11→18:52)
[2017-02-14 07:44] LABS: CALCIUM 8.6 mg/dl (8.4-10.2); CREATININE 2.23 mg/dl (0.61-1.24)
[2017-02-14] MEDS: BUMETANIDE 1 MG TAB PO SCH ×2 (08:02→18:52)
[2017-02-14] MEDS: AMIODARONE 200 MG TAB PO SCH (10:17)
[2017-02-14] MEDS: FAMOTIDINE 20 MG TAB PO SCH (10:18)
[2017-02-14] MEDS: ISOSORBIDE MONONITRATE(SR)30 MG TAB PO SCH (10:18)
[2017-02-14] MEDS: FERROUS SULFATE (EC) 325 MG TAB PO SCH ×3 (10:18→21:53)
[2017-02-14 16:30] VITALS: BP 96/54; RESP 19
[2017-02-14 16:42] VITALS: PULSE 57
[2017-02-14 20:04] VITALS: PULSE 58
[2017-02-14 20:10] VITALS: BP 110/63; RESP 18
[2017-02-14] MEDS: ATORVASTATIN 40 MG TAB PO SCH (21:52)
[2017-02-15] VITALS (10 sets, daily range): BP systolic 100–118; BP diastolic 56–67; PULSE 57–64; RESP 18–20
[2017-02-15] MEDS: BUMETANIDE 1 MG TAB PO SCH ×2 (06:24→18:01)
[2017-02-15] MEDS: PANTOPRAZOLE (EC) 40 MG TAB PO SCH ×2 (06:24→18:01)
[2017-02-15] MEDS: FAMOTIDINE 20 MG TAB PO SCH (08:44)
[2017-02-15] MEDS: FERROUS SULFATE (EC) 325 MG TAB PO SCH ×3 (08:45→20:23)
[2017-02-15] MEDS: ISOSORBIDE MONONITRATE(SR)30 MG TAB PO SCH (08:45)
[2017-02-15] MEDS: AMIODARONE 200 MG TAB PO SCH (08:46)
[2017-02-15 09:32] LABS: ADD SCAN DIFF NO
[2017-02-15 09:35] LABS: BASOPHIL # 0.1 10^3/ul (0.0-0.1); BASOPHILS % 0.8 % (0.0-2.0); EOSINOPHILS # 0.1 10^3/ul (0.0-0.5); EOSINOPHILS % 1.5 % (0.0-7.0); HEMATOCRIT 27.3 % (42.0-52.0); HEMOGLOBIN 8.4 g/dl (14.0-18.0); LYMPHOCYTES # 1.2 10^3/ul (0.8-2.9); LYMPHOCYTES % 18.1 % (15.0-51.0); MEAN CORPUSCULAR HEMOGLOBIN 30.7 pg (29.0-33.0); MEAN CORPUSCULAR HGB CONC 30.8 g/dl (32.0-37.0); MEAN CORPUSCULAR VOLUME 99.6 fl (82.0-101.0); MONOCYTE # 0.8 10^3/ul (0.3-0.9); MONOCYTES % 11.7 % (0.0-11.0); NEUTROPHIL # 4.3 10^3/ul (1.6-7.5); NEUTROPHILS % 66.7 % (39.0-77.0); PLATELET COUNT 244 10^3/UL (140-415); RED BLOOD COUNT 2.74 10^6/ul (4.70-6.10); RED CELL DISTRIBUTION WIDTH 16.9 % (11.5-14.5); WHITE BLOOD COUNT 6.5 10^3/ul (4.8-10.8)
[2017-02-15 09:45] LABS: POTASSIUM 5.5 mmol/L (3.5-5.1)
[2017-02-15 09:47] LABS: CREATININE 2.18 mg/dl (0.61-1.24)
[2017-02-15 09:48] LABS: CALCIUM 8.8 mg/dl (8.4-10.2)
--- NOTE | 2017-02-15 19:23 | PN ---
Date/Time of Note Date/Time of Note DATE: 02/15/17 TIME: 19:16 Assessment/Plan VTE Prophylaxis VTE Prophylaxis Intervention: SCD's Lines/Catheters IV Catheter Type (from Nrs): Saline Lock Urinary Cath still in place: No Assessment/Plan Assessment/Plan 1) Acute exacerbation of CHF (congestive heart failure) with BNP = 16,700 2) Acute Kidney Injury 3) Hyperkalemia 2/2 #2 improving 4. Anemia, 5. 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 Cachexia 7. Chronic cirrhosis ? source 8. Paroxysmal Afib PLAN: continue diuresis Nephro and GI consult continue serial labs and K monitoring continue supportive care Subjective 24 Hr Interval Summary Free Text/Dictation feels slightly better, lethargic, poor apetite Exam/Review of Systems Vital Signs Vitals Vital Signs Date Time Temp Pulse Resp B/P Pulse Ox O2 Delivery O2 Flow Rate FiO2 02/15/17 15:40 98.0 60 20 100/59 100 02/15/17 08:10 Nasal Cannula 2.0 02/14/17 04:16 21 Intake and Output 02/14/17 02/14/17 02/15/17 15:00 23:00 07:00 Intake Total 400 ml 240 ml Balance 400 ml 240 ml Exam General: Frail, ill-appearing Dutch-speaking male who appears older than his stated age, receiving O2 via mask while lying on gurney in the ER. In no acute distress, but he appears very tired. Eyes: Sclera White, EOMI HENT: Normocephalic/Atraumatic, External Ears/Nose Normal, Moist Mucus Membranes Neck: Supple, Trachea Midline Cardiovascular: Normal Rate, Normal Rhythm, Normal S1 and S2, No Murmur, No Extra Sounds Pulmonary: Clear to Auscultation Bilaterally, Normal Respiratory Effort, No Rales, Rhonchi or Wheezes Gastrointestinal: Normoactive Bowel Sounds, Soft, Non-Tender/Non-Distended, No Hepatosplenomegaly Appreciated, No Pulsatile Masses Urogenital: Deferred Musculoskeletal: Normal Muscle Bulk and Tone Neurological: CN II - XII Grossly Intact, Non-Focal, Speech Normal Integumentary: Normal Moisture and Temperature, Good Turgor, No Jaundice, No Rash Lymphatic: No Cervical Lymphadenopathy Psychiatric: Appropriate Mood and Affect, Good Eye Contact Results Result Diagram: 02/15/1792402/15/17924 Results 24 hrs Laboratory Tests Test 02/15/17 09:25 White Blood Count 6.5 # Red Blood Count 2.74 L Hemoglobin 8.4 L Hematocrit 27.3 L Mean Corpuscular Volume 99.6 Mean Corpuscular Hemoglobin 30.7 Mean Corpuscular Hemoglobin Concent 30.8 L Red Cell Distribution Width 16.9 H Platelet Count 244 Mean Platelet Volume 11.0 H Neutrophils % 66.7 Lymphocytes % 18.1 Monocytes % 11.7 H Eosinophils % 1.5 Basophils % 0.8 Nucleated Red Blood Cells % 0.0 Neutrophils # 4.3 Lymphocytes # 1.2 Monocytes # 0.8 Eosinophils # 0.1 Basophils # 0.1 Nucleated Red Blood Cells # 0.0 Sodium Level 138 Potassium Level 5.5 H Chloride Level 106 Carbon Dioxide Level 19 L Anion Gap 19 H Blood Urea Nitrogen 60 H Creatinine 2.18 H Glucose Level 159 Calcium Level 8.8 Magnesium Level 2.0 Medications Medications Current Medications Metoclopramide HCl (Reglan) 10 mg Q6H PRN IV NAUSEA AND/OR VOMITING; Start at 05:30 Famotidine (Pepcid) 20 mg DAILY PO Last administered on 02/15/17 08:44; Admin Dose 20 MG; Start 02/14/17 at 09:00 Amiodarone HCl (Cordarone) 100 mg DAILY PO Last administered on 02/15/17 08:46 ; Admin Dose 100 MG; Start 02/14/17 at 09:00 Atorvastatin Calcium (Lipitor) 40 mg HS PO Last administered on 02/14/17 21:52 ; Admin Dose 40 MG; Start 02/14/17 at 21:00 Carvedilol (Coreg) 1.5625 mg BID PO Last administered on 02/15/17 08:46; Admin Dose 1.5625 MG; Start 02/14/17 at 09:00 Ferrous Sulfate (Ferrous Sulfate (Ec)) 325 mg TID PO Last administered on 13:54; Admin Dose 325 MG; Start 02/14/17 at 09:00 Isosorbide Mononitrate (Imdur) 30 mg DAILY PO Last administered on 02/14/17 10 :18; Admin Dose 30 MG; Start 02/14/17 at 09:00 Pantoprazole (Protonix Tab) 40 mg BID@06,18 PO Last administered on 02/15/17t 18:01; Admin Dose 40 MG; Start 02/14/17 at 06:00 SAÚL JAQUEZ Feb 15, 2017 19:23
[2017-02-15] MEDS: ATORVASTATIN 40 MG TAB PO SCH (20:23)
[2017-02-16] VITALS (11 sets, daily range): BP systolic 101–115; BP diastolic 57–65; PULSE 58–62; RESP 15–18
[2017-02-16] MEDS: PANTOPRAZOLE (EC) 40 MG TAB PO SCH ×2 (05:39→17:32)
[2017-02-16 07:07] LABS: ADD SCAN DIFF NO
[2017-02-16 07:11] LABS: BASOPHIL # 0.1 10^3/ul (0.0-0.1); BASOPHILS % 0.9 % (0.0-2.0); EOSINOPHILS # 0.1 10^3/ul (0.0-0.5); LYMPHOCYTES # 1.3 10^3/ul (0.8-2.9); LYMPHOCYTES % 21.3 % (15.0-51.0); MEAN CORPUSCULAR HEMOGLOBIN 31.7 pg (29.0-33.0); MEAN CORPUSCULAR VOLUME 99.2 fl (82.0-101.0); MEAN PLATELET VOLUME 11.4 fl (7.4-10.4); MONOCYTE # 0.7 10^3/ul (0.3-0.9); MONOCYTES % 11.6 % (0.0-11.0); NEUTROPHIL # 3.7 10^3/ul (1.6-7.5); NEUTROPHILS % 63.3 % (39.0-77.0); PLATELET COUNT 245 10^3/UL (140-415); RED BLOOD COUNT 2.52 10^6/ul (4.70-6.10); RED CELL DISTRIBUTION WIDTH 16.7 % (11.5-14.5); WHITE BLOOD COUNT 5.9 10^3/ul (4.8-10.8)
[2017-02-16 07:23] LABS: CREATININE 2.08 mg/dl (0.61-1.24)
[2017-02-16 07:24] LABS: CALCIUM 8.7 mg/dl (8.4-10.2); MAGNESIUM 1.9 mg/dl (1.7-2.5)
[2017-02-16] MEDS ORDERED: NA POLYST SULFON 15 GM/60 ML BTL PO ONE (08:30)
[2017-02-16] MEDS: FAMOTIDINE 20 MG TAB PO SCH (08:51)
[2017-02-16] MEDS: FERROUS SULFATE (EC) 325 MG TAB PO SCH ×3 (08:51→20:17)
[2017-02-16] MEDS: ISOSORBIDE MONONITRATE(SR)30 MG TAB PO SCH (08:52)
[2017-02-16] MEDS: AMIODARONE 200 MG TAB PO SCH (08:52)
[2017-02-16] MEDS ORDERED: BUMETANIDE 1 MG INJ IV SCH (09:00)
[2017-02-16 09:13] LABS: THYROID STIMULATING HORMONE 4.51 MIU/L (0.465-4.680)
--- NOTE | 2017-02-16 10:32 | CONS ---
DATE OF ADMISSION: 02/14/2017 DATE OF CONSULTATION: TYPE OF CONSULTATION: Nephrology. REASON FOR CONSULTATION: Acute kidney injury, hyperkalemia. PHYSICIAN REQUESTING CONSULT: ____. HISTORY OF PRESENT ILLNESS: This is a 66-year-old male with a past medical history of CKD stage III B/IV, with a baseline creatinine 1.62 mg/dL. Etiology is secondary to cardiorenal syndrome, diabete s, history of cardiomyopathy with ejection fraction of 35%, history of AFib, history of dyslipidemia , diabetes, history of previous colon cancer, gastric cancer, who has had multiple admissions to [facility] for CHF exacerbation. The patient was previously admitted in December and was subsequently discharged and after being diuresed. The patient now presents to [facility] with complaints of shortness of breath, dyspnea on exertion. The patient in the emerge ncy room had laboratory data drawn, and a chest x-ray which showed cardiomegaly, mild CHF increased. The patient's laboratory data showed acute kidney injury with creatinine 2.35 and a potassium of 7 .3. The patient was treated with diuretic therapy and Kayexalate and was admitted to telemetry. Wh ile on telemetry, the patient's potassium levels have improved. The patient has been urinating adeq uately with clinical improvement. In terms of the patient's renal history, the patient has underlying history of chronic kidney diseas e with previous baseline creatinines between 1.5 to 2 mg/dL. The patient has previous history of cardiorenal syndrome. The patient presented on this admission with a creatinine of 2.3 mg/dL which has improved with diuretic therapy. The patient's potassium level has also improved with Kayexalat e and diuretic therapy from 7.3 to 6 mg/dL, There have been no complaints of frothy urine or rashes noted. PAST MEDICAL HISTORY: History of congestive heart failure, history of CKD stage IV, history of diab etes, hypertension, AFib, and history of colon cancer. PAST SURGICAL HISTORY: Previous history of colon and gastric surgery. SOCIAL HISTORY: Does not drink, smoke or do drugs. FAMILY HISTORY: Noncontributory. MEDICATIONS: Have been reviewed. ALLERGIES: NO KNOWN DRUG ALLERGIES. REVIEW OF SYSTEMS: A 14-point review of systems was conducted. Pertinent positives as stated in HP I, otherwise negative. PHYSICAL EXAMINATION: VITAL SIGNS: Blood pressure is currently 150/65, respirations 18, pulse 69, temperature 98.2. HEENT: Head is normocephalic. NECK: Supple. HEART: Regular rate. LUNGS: Show diminished breath sounds at base. ABDOMEN: Soft and nontender to palpation. No rebound or guarding. EXTREMITIES: Negative for clubbing, cyanosis. Trace edema. DERMATOLOGIC: No rashes. MUSCULOSKELETAL: No joint effusions. NEUROLOGIC: No focal deficits. LABORATORY DATA: Shows a white count 5.9, hemoglobin 8.0, hematocrit 25.0, and platelet count 245. Sodium 134, potassium 6.0, chloride 103, bicarbonate 19, BUN 60, creatinine 2.08. ASSESSMENT AND PLAN: This is a 66-year-old male who presents with: 1. Nonoliguric acute kidney injury on top of chronic kidney disease, stage IIIB/IV with previous ba seline creatinine between 1.5 to 2 mg/dL. Etiology of acute kidney injury is likely secondary to th e hemodynamics, cardiorenal syndrome with possible tubular injury. The patient's initial urinalysis shows a bland sediment. However, microscopy was not performed. The patient's renal function has b een improving with IV diuretic therapy, which is consistent with cardiorenal pathophysiology. Plan at this point is to repeat a UA with microanalysis. Will check urine electrolytes. We will continu e treatment with IV diuretic therapy, monitor strict I's and O's. Will continue supportive care, re woody dose meds, and avoid nephrotoxins. Will monitor potassium levels closely. If the patient's h yperkalemia does not improve with medical management, we will consider renal replacement therapy. 2. Hyperkalemia. Etiology is multifactorial secondary to acute kidney injury, chronic kidney decre ased, decreased distal salt delivery to the collecting tibials. Dietary noncompliance is also a cont ributing factor. The patient's potassium levels have been improving; however, remained elevated. P karlos at this point is to place the patient on a low potassium diet. Will continue diuretic therapy a nd will give additional dose of Kayexalate. We will repeat a BMP at 1400. If potassium levels rhianna in elevated or should further worsen, would consider initiating dialysis. We will also check an ABG to rule out an acidemia as a contributing factor. 3. Hyponatremia secondary to acute kidney injury causing decreased free water urinary excretion. C ontinue patient on free water restriction. 4. Metabolic bone syndrome. Will monitor calcium and phosphorus levels. 5. Acute congestive heart failure exacerbation. Patient is clinically improving. Continue current diuretic regimen. 6. Atrial fibrillation, currently sinus rhythm. Continue medical management. 7. History of gastric and colon carcinoma, status post surgery and chemotherapy. 8. Pulmonary hypertension, continue current treatment plan. Thank you, ____ for this interesting consultation. It will be a pleasure to follow the patient with you throughout the hospital course. Dictated By: ANIL PERALES/LANG Conf#: [id number] DID#: [id number]
[2017-02-16 11:26] LABS: AADO2 Arterial 21.3 mmHg (7.0-24.0); Allen Test ACCEPTAB; Arterial Base Excess -6.1 mmol/L (-3.0-3); Arterial COHb 0.3 % (0.0-3.0); Arterial Fraction of Oxyhgb 96.3 % (93.0-99.0); Arterial HCO3 17.2 mmol/L (22.0-26.0); Arterial MetHb 0.1 % (0.0-1.5); Arterial Total Hemglobin 8.6 g/dl (12.0-18.0); MODE ROOM AIR
--- NOTE | 2017-02-16 12:07 | CONS ---
Date/Time of Note Date/Time of Note DATE: 02/16/17 TIME: 12:06 Consultation Date/Type/Reason Admit Date/Time Feb 14, 2017 at 05:37 Initial Consult Date Exam/Review of Systems Vital Signs Vitals Vital Signs Date Time Temp Pulse Resp B/P Pulse Ox O2 Delivery O2 Flow Rate FiO2 02/16/17 08:18 61 02/16/17 04:00 98.2 18 115/65 97 Nasal Cannula 2.0 02/14/17 04:16 21 Intake and Output 02/15/17 02/15/17 02/16/17 15:00 23:00 07:00 Intake Total 1000 ml 500 ml Balance 1000 ml 500 ml Results Result Diagram: 02/16/17 0607 02/16/17 0608 Results 24 hrs Laboratory Tests Test 02/16/17 06:07 02/16/17 06:08 02/16/17 08:40 02/16/17 08:59 White Blood Count 5.9 Red Blood Count 2.52 L Hemoglobin 8.0 L Hematocrit 25.0 L Mean Corpuscular Volume 99.2 Mean Corpuscular Hemoglobin 31.7 Mean Corpuscular Hemoglobin Concent 32.0 Red Cell Distribution Width 16.7 H Platelet Count 245 Mean Platelet Volume 11.4 H Neutrophils % 63.3 Lymphocytes % 21.3 Monocytes % 11.6 H Eosinophils % 2.0 Basophils % 0.9 Nucleated Red Blood Cells % 0.0 Neutrophils # 3.7 Lymphocytes # 1.3 Monocytes # 0.7 Eosinophils # 0.1 Basophils # 0.1 Nucleated Red Blood Cells # 0.0 Hemoglobin A1c 6.2 H Carcinoembryonic Antigen 3.7 Sodium Level 134 L Potassium Level 6.0 H Chloride Level 103 Carbon Dioxide Level 19 L Anion Gap 18 H Blood Urea Nitrogen 60 H Creatinine 2.08 H Glucose Level 115 # Calcium Level 8.7 Magnesium Level 1.9 Thyroid Stimulating Hormone (TSH) 4.510 Blood Gas Specimen Source Blood arterial Arterial Blood Date Drawn 02/16/2017 11:11:50 AM Arterial Blood pH (Temp corrected) 7.431 Arterial Blood pCO2 (Temp correct) 26.5 L Arterial Blood pO2 (Temp corrected) 96.7 Arterial Blood HCO3 17.2 L Arterial Blood Base Excess -6.1 L Arterial Blood Oxygen Saturation 96.7 Alex Test ACCEPTAB Arterial Blood Gas Puncture Site Right Radial Arterial Blood Carboxyhemoglobin 0.3 Arterial Blood Methemoglobin 0.1 Blood Gas A-a O2 Differential 21.3 Oxyhemoglobin Percent 96.3 Total Hemoglobin 8.6 L Blood Gas Temperature 37.0 Blood Gas Modality ROOM AIR FiO2 21.0 [facility] Notified [facility]om [facility] Blood Gas Notified Time 02/16/2017 11:25:42 AM Bedside Glucose 94 Medications Medications Current Medications Metoclopramide HCl (Reglan) 10 mg Q6H PRN IV NAUSEA AND/OR VOMITING; Start at 05:30 Famotidine (Pepcid) 20 mg DAILY PO Last administered on 02/16/17 08:51; Admin Dose 20 MG; Start 02/14/17 at 09:00 Amiodarone HCl (Cordarone) 100 mg DAILY PO Last administered on 02/16/17 08:52 ; Admin Dose 100 MG; Start 02/14/17 at 09:00 Atorvastatin Calcium (Lipitor) 40 mg HS PO Last administered on 02/15/17 20:23 ; Admin Dose 40 MG; Start 02/14/17 at 21:00 Carvedilol (Coreg) 1.5625 mg BID PO Last administered on 02/16/17 08:52; Admin Dose 1.5625 MG; Start 02/14/17 at 09:00 Ferrous Sulfate (Ferrous Sulfate (Ec)) 325 mg TID PO Last administered on 08:51; Admin Dose 325 MG; Start 02/14/17 at 09:00 Isosorbide Mononitrate (Imdur) 30 mg DAILY PO Last administered on 02/16/17 08 :52; Admin Dose 30 MG; Start 02/14/17 at 09:00 Pantoprazole (Protonix Tab) 40 mg BID@,18 PO Last administered on 02/16/17 05:39; Admin Dose 40 MG; Start 02/14/17 at 06:00 Bumetanide (Bumex) 1 mg DAILY IV Last administered on 02/16/17 08:51; Admin Dose 1 MG; Start 02/16/17 at 09:00 HARDIK SANTOS Feb 16, 2017 12:07 Total Hemoglobin 8.6 L Blood Gas Temperature 37.0 Blood Gas Modality ROOM AIR FiO2 21.0 Blood Gas Notified Whom [facility] Blood Gas Notified Time 02/16/2017 11:25:42 AM Bedside Glucose 94 Medications Medications Current Medications Metoclopramide HCl (Reglan) 10 mg Q6H PRN IV NAUSEA AND/OR VOMITING; Start at 05:30 Famotidine (Pepcid) 20 mg DAILY PO Last administered on 02/16/17 08:51; Admin Dose 20 MG; Start 02/14/17 at 09:00 Amiodarone HCl (Cordarone) 100 mg DAILY PO Last administered on 02/16/17 08:52 ; Admin Dose 100 MG; Start 02/14/17 at 09:00 Atorvastatin Calcium (Lipitor) 40 mg HS PO Last administered on 02/15/17 20:23 ; Admin Dose 40 MG; Start 02/14/17 at 21:00 Carvedilol (Coreg) 1.5625 mg BID PO Last administered on 02/16/17 08:52; Admin Dose 1.5625 MG; Start 02/14/17 at 09:00 Ferrous Sulfate (Ferrous Sulfate (Ec)) 325 mg TID PO Last administered on 08:51; Admin Dose 325 MG; Start 02/14/17 at 09:00 Isosorbide Mononitrate (Imdur) 30 mg DAILY PO Last administered on 02/16/17 08 :52; Admin Dose 30 MG; Start 02/14/17 at 09:00 Pantoprazole (Protonix Tab) 40 mg BID@06,18 PO Last administered on 02/16/17 05:39; Admin Dose 40 MG; Start 02/14/17 at 06:00 Bumetanide (Bumex) 1 mg DAILY IV Last administered on 02/16/17 08:51; Admin Dose 1 MG; Start 02/16/17 at 09:00 HARDIK SANTOS Feb 16, 2017 12:07
--- NOTE | 2017-02-16 12:21 | CONS ---
Date/Time of Note Date/Time of Note DATE: 02/16/17 TIME: 12:13 Assessment/Plan Assessment/Plan Additional Assessment/Plan Anemia Evaluate GI bleed versus chronic iron deficiency vs secondary to chronic disease Stool OB, if positive strongly recommend EGD. Neg x 1 Monitor H&H daily, transfuse 2 units for hemoglobin less than 7.[address] abdomen in process EGD if clinically indicated, pt advised of R/B/A to procedure and provide informed consent to proceed Nausea Resolved Tolerating diet Zofran as needed Liver cirrhosis Secondary to alcoholism Paracentesis as needed for ascites treatment Trend LFTs History of gastric and colon cancer Patient status post surgery and chemotherapy No active issue at this time. Acute on chronic kidney disease Management per nephrology Further recommendations depend on clinical course Patient seen in collaboration with Dr. Ng Consultation Date/Type/Reason Admit Date/Time Feb 14, 2017 at 05:37 Hx of Present Illness Mr. Kathie Rosas is a 66-year-old man that looks older than stated age. Per police artist, patient presented to emergency room with complaints of nausea with no vomiting and shortness of breath for the last 3 days. Patient has a history of CHF, atrial fibrillation, and CKD. Patient previously reported generalized weakness and poor appetite; however bedside patient is reportedly good appetite and no nausea. Patient denies fevers, chills, cough, abdominal pain, or dysuria. Past Medical History Medical History: congestive heart failure Past Surgical History Past Surgical Hx: no surgical history, endoscopy Social History Smoking Status: Former smoker Exam/Review of Systems Vital Signs Vitals Vital Signs Date Time Temp Pulse Resp B/P Pulse Ox O2 Delivery O2 Flow Rate FiO2 02/16/17 08:18 61 02/16/17 04:00 98.2 18 115/65 97 Nasal Cannula 2.0 02/14/17 04:16 21 Intake and Output 02/15/17 02/15/17 02/16/17 15:00 23:00 07:00 Intake Total 1000 ml 500 ml Balance 1000 ml 500 ml Exam Constitutional: alert, oriented, thin Psych: nl mood/affect Head: normocephalic Eyes: EOMI, nl conjunctiva, nl lids ENMT: nl external ears & nose, nl lips & teeth, nl nasal mucosa & septum Respiratory: clear to auscultation, normal air movement Cardiovascular: regular rate and rhythm Gastrointestinal: soft, non-tender Musculoskeletal: nl extremities to inspection Neurological: VIDEO COORDINATOR II-XII intact Results Result Diagram: 02/16/17 0607 02/16/17 0608 Results 24 hrs Laboratory Tests Test 02/16/17 06:07 02/16/17 06:08 02/16/17 08:40 02/16/17 08:59 White Blood Count 5.9 Red Blood Count 2.52 L Hemoglobin 8.0 L Hematocrit 25.0 L Mean Corpuscular Volume 99.2 Mean Corpuscular Hemoglobin 31.7 Mean Corpuscular Hemoglobin Concent 32.0 Red Cell Distribution Width 16.7 H Platelet Count 245 Mean Platelet Volume 11.4 H Neutrophils % 63.3 Lymphocytes % 21.3 Monocytes % 11.6 H Eosinophils % 2.0 Basophils % 0.9 Nucleated Red Blood Cells % 0.0 Neutrophils # 3.7 Lymphocytes # 1.3 Monocytes # 0.7 Eosinophils # 0.1 Basophils # 0.1 Nucleated Red Blood Cells # 0.0 Hemoglobin A1c 6.2 H Carcinoembryonic Antigen 3.7 Sodium Level 134 L Potassium Level 6.0 H Chloride Level 103 Carbon Dioxide Level 19 L Anion Gap 18 H Blood Urea Nitrogen 60 H Creatinine 2.08 H Glucose Level 115 # Calcium Level 8.7 Magnesium Level 1.9 Thyroid Stimulating Hormone (TSH) 4.510 Blood Gas Specimen Source Blood arterial Arterial Blood Date Drawn 02/16/2017 11:11:50 AM Arterial Blood pH (Temp corrected) 7.431 Arterial Blood pCO2 (Temp correct) 26.5 L Arterial Blood pO2 (Temp corrected) 96.7 Arterial Blood HCO3 17.2 L Arterial Blood Base Excess -6.1 L Arterial Blood Oxygen Saturation 96.7 Alex Test ACCEPTAB Arterial Blood Gas Puncture Site Right Radial Arterial Blood Carboxyhemoglobin 0.3 Arterial Blood Methemoglobin 0.1 Blood Gas A-a O2 Differential 21.3 Oxyhemoglobin Percent 96.3 Total Hemoglobin 8.6 L Blood Gas Temperature 37.0 Blood Gas Modality ROOM AIR FiO2 21.0 Blood Gas Notified Whom [facility] Blood Gas Notified Time 02/16/2017 11:25:42 AM Bedside Glucose 94 Medications Medications Current Medications Metoclopramide HCl (Reglan) 10 mg Q6H PRN IV NAUSEA AND/OR VOMITING; Start at 05:30 Famotidine (Pepcid) 20 mg DAILY PO Last administered on 02/16/17 08:51; Admin Dose 20 MG; Start 02/14/17 at 09:00 Amiodarone HCl (Cordarone) 100 mg DAILY PO Last administered on 02/16/17 08:52 ; Admin Dose 100 MG; Start 02/14/17 at 09:00 Atorvastatin Calcium (Lipitor) 40 mg HS PO Last administered on 02/15/17 20:23 ; Admin Dose 40 MG; Start 02/14/17 at 21:00 Carvedilol (Coreg) 1.5625 mg BID PO Last administered on 02/16/17 08:52; Admin Dose 1.5625 MG; Start 02/14/17 at 09:00 Ferrous Sulfate (Ferrous Sulfate (Ec)) 325 mg TID PO Last administered on 08:51; Admin Dose 325 MG; Start 02/14/17 at 09:00 Isosorbide Mononitrate (Imdur) 30 mg DAILY PO Last administered on 02/16/17 08 :52; Admin Dose 30 MG; Start 02/14/17 at 09:00 Pantoprazole (Protonix Tab) 40 mg BID@,18 PO Last administered on 02/16/17 05:39; Admin Dose 40 MG; Start 02/14/17 at 06:00 Bumetanide (Bumex) 1 mg DAILY IV Last administered on 02/16/17 08:51; Admin Dose 1 MG; Start 02/16/17 at 09:00 HADRIK SANTOS Feb 16, 2017 12:21
[2017-02-16 14:01] LABS: POTASSIUM 5.6 mmol/L (3.5-5.1)
[2017-02-16 14:04] LABS: CREATININE 1.91 mg/dl (0.61-1.24)
[2017-02-16 14:05] LABS: CALCIUM 8.5 mg/dl (8.4-10.2)
--- NOTE | 2017-02-16 14:11 | PN ---
Date/Time of Note Date/Time of Note DATE: 02/16/17 TIME: 14:01 Assessment/Plan VTE Prophylaxis VTE Prophylaxis Intervention: SCD's Lines/Catheters IV [facility] [place] [facility] Urinary Cath still in place: No Assessment/Plan Assessment/Plan 1. Acute exacerbation of CHF (congestive heart failure) with BNP = 16,700 2. 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 Etiology of acute kidney injury is likely secondary to the hemodynamics, cardiorenal syndrome with possible tubular injury. 3. Hyperkalemia 2/2 #2 4. Worsening Anemia : ?2/2 CKD r/o occult GI bleed based on #5 5. 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 Cachexia 7. Chronic cirrhosis ? source: Per family was 2/2 chemo 8. Paroxysmal Afib 9. PreDM : a1c 6.2 PLAN: Appreciate Nephrology input and recs / continue diuresis / serial labs / low K diet F/u CT abd per GI / appreciate input / f/o stool OB test / f/u final GI recs Continue Current regimen / patient is not on anticoagulation for worsening anemia Will d/w GI if patient is a candidate for terminologist anticoagulation for Paroxysmal Afib Continue serial labs and K monitoring Continue supportive care PROPHYLAXIS: PPI / Scds Exam/Review of Systems Vital Signs Vitals Vital Signs Date Time Temp Pulse Resp B/P Pulse Ox O2 Delivery O2 Flow Rate FiO2 02/16/17 12:13 60 02/16/17 04:00 98.2 18 115/65 97 Nasal Cannula 2.0 02/14/17 04:16 21 Intake and Output 02/15/17 02/15/17 02/16/17 15:00 23:00 07:00 Intake Total 1000 ml 500 ml Balance 1000 ml 500 ml Exam General: Frail, ill-appearing Korean-speaking male who appears older than his stated age, receiving O2 via mask while lying on gurney in the ER. In no acute distress, but he appears very tired. Eyes: Sclera White, EOMI HENT: Normocephalic/Atraumatic, External Ears/Nose Normal, Moist Mucus Membranes Neck: Supple, Trachea Midline Cardiovascular: Normal Rate, Normal Rhythm, Normal S1 and S2, No Murmur, No Extra Sounds Pulmonary: Clear to Auscultation Bilaterally, Normal Respiratory Effort, No Rales, Rhonchi or Wheezes Gastrointestinal: Normoactive Bowel Sounds, Soft, Non-Tender/Non-Distended, No Hepatosplenomegaly Appreciated, No Pulsatile Masses Urogenital: Deferred Musculoskeletal: Normal Muscle Bulk and Tone Neurological: CN II - XII Grossly Intact, Non-Focal, Speech Normal Integumentary: Normal Moisture and Temperature, Good Turgor, No Jaundice, No Rash Lymphatic: No Cervical Lymphadenopathy Psychiatric: Appropriate Mood and Affect, Good Eye Contact Results Result Diagram: 02/16/17 0607 02/16/17 0608 Results 24 hrs Laboratory Tests Test 02/16/17 06:07 02/16/17 06:08 02/16/17 08:40 02/16/17 08:59 White Blood Count 5.9 Red Blood Count 2.52 L Hemoglobin 8.0 L Hematocrit 25.0 L Mean Corpuscular Volume 99.2 Mean Corpuscular Hemoglobin 31.7 Mean Corpuscular Hemoglobin Concent 32.0 Red Cell Distribution Width 16.7 H Platelet Count 245 Mean Platelet Volume 11.4 H Neutrophils % 63.3 Lymphocytes % 21.3 Monocytes % 11.6 H Eosinophils % 2.0 Basophils % 0.9 Nucleated Red Blood Cells % 0.0 Neutrophils # 3.7 Lymphocytes # 1.3 Monocytes # 0.7 Eosinophils # 0.1 Basophils # 0.1 Nucleated Red Blood Cells # 0.0 Hemoglobin A1c 6.2 H Carcinoembryonic Antigen 3.7 Sodium Level 134 L Potassium Level 6.0 H Chloride Level 103 Carbon Dioxide Level 19 L Anion Gap 18 H Blood Urea Nitrogen 60 H Creatinine 2.08 H Glucose Level 115 # Calcium Level 8.7 Magnesium Level 1.9 Thyroid Stimulating Hormone (TSH) 4.510 Blood Gas Specimen Source Blood arterial Arterial Blood Date Drawn 02/16/2017 11:11:50 AM Arterial Blood pH (Temp corrected) 7.431 Arterial Blood pCO2 (Temp correct) 26.5 L Arterial Blood pO2 (Temp corrected) 96.7 Arterial Blood HCO3 17.2 L Arterial Blood Base Excess -6.1 L Arterial Blood Oxygen Saturation 96.7 Alex Test ACCEPTAB Arterial Blood Gas Puncture Site Right Radial Arterial Blood Carboxyhemoglobin 0.3 Arterial Blood Methemoglobin 0.1 Blood Gas A-a O2 Differential 21.3 Oxyhemoglobin Percent 96.3 Total Hemoglobin 8.6 L Blood Gas Temperature 37.0 Blood Gas Modality ROOM AIR FiO2 21.0 Blood Gas Notified Whom [facility] Blood Gas Notified Time 02/16/2017 11:25:42 AM Bedside Glucose 94 Medications Medications Current Medications Metoclopramide HCl (Reglan) 10 mg Q6H PRN IV NAUSEA AND/OR VOMITING; Start at 05:30 Famotidine (Pepcid) 20 mg DAILY PO Last administered on 02/16/17 08:51; Admin Dose 20 MG; Start 02/14/17 at 09:00 Amiodarone HCl (Cordarone) 100 mg DAILY PO Last administered on 02/16/17 08:52 ; Admin Dose 100 MG; Start 02/14/17 at 09:00 Atorvastatin Calcium (Lipitor) 40 mg HS PO Last administered on 02/15/17 20:23 ; Admin Dose 40 MG; Start 02/14/17 at 21:00 Carvedilol (Coreg) 1.5625 mg BID PO Last administered on 02/16/17 08:52; Admin Dose 1.5625 MG; Start 02/14/17 at 09:00 Ferrous Sulfate (Ferrous Sulfate (Ec)) 325 mg TID PO Last administered on 13:32; Admin Dose 325 MG; Start 02/14/17 at 09:00 Isosorbide Mononitrate (Imdur) 30 mg DAILY PO Last administered on 02/16/17 08 :52; Admin Dose 30 MG; Start 02/14/17 at 09:00 Pantoprazole (Protonix Tab) 40 mg BID@06,18 PO Last administered on 02/16/17 05:39; Admin Dose 40 MG; Start 02/14/17 at 06:00 Bumetanide (Bumex) 1 mg DAILY IV Last administered on 02/16/17 08:51; Admin Dose 1 MG; Start 02/16/17 at 09:00 SAÚL JAQUEZ Feb 16, 2017 14:11
[2017-02-16 17:28] LABS: ADD UMIC NO; URINE BILIRUBIN (Dip) NEGATIVE (NEGATIVE); URINE BLOOD (Dip) NEGATIVE (NEGATIVE); URINE COLOR LT. YELLOW (YELLOW); URINE GLUCOSE (Dip) NEGATIVE (NEGATIVE); URINE KETONES (Dip) NEGATIVE (NEGATIVE); URINE LEUKOCYTE ESTERASE (Dip) NEGATIVE (NEGATIVE); URINE NITRITE (Dip) NEGATIVE (NEGATIVE); URINE TOTAL PROTEIN (Dip) NEGATIVE (NEGATIVE); URINE UROBILINOGEN (Dip) 0.2 E.U./dL (0.1-1.0)
[2017-02-16 18:14] LABS: PROTEIN URINE < 5.0 mg/dl (0.0-9.9)
[2017-02-16] MEDS: ATORVASTATIN 40 MG TAB PO SCH (20:17)
[2017-02-17] VITALS (11 sets, daily range): BP systolic 102–117; BP diastolic 58–65; PULSE 58–65; RESP 15–19
[2017-02-17] MEDS: PANTOPRAZOLE (EC) 40 MG TAB PO SCH ×2 (05:03→18:16)
[2017-02-17 07:09] LABS: ADD SCAN DIFF NO
[2017-02-17 07:19] LABS: BASOPHIL # 0.1 10^3/ul (0.0-0.1); BASOPHILS % 0.9 % (0.0-2.0); EOSINOPHILS # 0.1 10^3/ul (0.0-0.5); EOSINOPHILS % 2.1 % (0.0-7.0); HEMATOCRIT 22.9 % (42.0-52.0); HEMOGLOBIN 7.4 g/dl (14.0-18.0); LYMPHOCYTES # 1.3 10^3/ul (0.8-2.9); LYMPHOCYTES % 22.9 % (15.0-51.0); MEAN CORPUSCULAR HEMOGLOBIN 32.2 pg (29.0-33.0); MEAN CORPUSCULAR HGB CONC 32.3 g/dl (32.0-37.0); MEAN CORPUSCULAR VOLUME 99.6 fl (82.0-101.0); MEAN PLATELET VOLUME 11.2 fl (7.4-10.4); MONOCYTE # 0.8 10^3/ul (0.3-0.9); MONOCYTES % 13.1 % (0.0-11.0); NEUTROPHIL # 3.5 10^3/ul (1.6-7.5); NEUTROPHILS % 60.1 % (39.0-77.0); PLATELET COUNT 237 10^3/UL (140-415); RED CELL DISTRIBUTION WIDTH 16.9 % (11.5-14.5); WHITE BLOOD COUNT 5.8 10^3/ul (4.8-10.8)
[2017-02-17 07:21] LABS: IRON 51 ug/dl (35-150)
[2017-02-17 07:23] LABS: CREATININE 1.9 mg/dl (0.61-1.24)
[2017-02-17 07:24] LABS: CALCIUM 8.1 mg/dl (8.4-10.2)
[2017-02-17 07:30] LABS: TOTAL IRON BINDING CAPACITY 300 ug/dl (241-421)
--- NOTE | 2017-02-17 07:44 | PN ---
Date/Time of Note Date/Time of Note DATE: 02/17/17 TIME: 07:38 Assessment/Plan VTE Prophylaxis VTE Prophylaxis Intervention: SCD's Lines/Catheters IV C[facility]ter Type (from [facility] Saline Lock Urinary Cath still in place: No Assessment/Plan Assessment/Plan 1. Acute exacerbation of CHF (congestive heart failure) with BNP = 16,700: improved 2. 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 Etiology of acute kidney injury is likely secondary to the hemodynamics, cardiorenal syndrome with possible tubular injury. 3. Hyperkalemia 2/2 #2 4. Worsening Anemia : ?2/2 CKD r/o occult GI bleed based on #5 5. 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 Cachexia 7. Chronic cirrhosis ? source: Per family was 2/2 chemo 8. Paroxysmal Afib 9. PreDM : a1c 6.2 PLAN: Appreciate Nephrology input and recs / continue diuresis / serial labs / low K diet / patient may just avoid HD F/u CT abd per GI still pending/ appreciate input / Stool OB test-neg x3 / f /u final GI recs Hgb still dropping, will transfuse today Continue Current regimen / patient is not on anticoagulation for worsening anemia Will d/w GI if patient is a candidate for correction anticoagulation for Paroxysmal Afib Continue serial labs and K monitoring Will get cardio consult as well Continue supportive care PROPHYLAXIS: PPI / Scds Subjective 24 Hr Interval Summary Free Text/Dictation no new issues, wants to know what's going on Exam/Review of Systems Vital Signs Vitals Vital Signs Date Time Temp Pulse Resp B/P Pulse Ox O2 Delivery O2 Flow Rate FiO2 02/17/17 04:00 60 02/17/17 00:00 98.3 15 107/62 98 02/16/17 12:00 Room Air 02/16/17 04:00 2.0 02/14/17 04:16 21 Intake and Output 02/16/17 02/16/17 02/17/17 15:00 23:00 07:00 Intake Total 160 ml 240 ml Output Total 1600 ml Balance -1440 ml 240 ml Exam General: Frail, looking better Eyes: Sclera White, EOMI HENT: Normocephalic/Atraumatic, External Ears/Nose Normal, Moist Mucus Membranes Neck: Supple, Trachea Midline Cardiovascular: Normal Rate, Normal Rhythm, Normal S1 and S2, No Murmur, No Extra Sounds Pulmonary: Clear to Auscultation Bilaterally, Normal Respiratory Effort, No Rales, Rhonchi or Wheezes Gastrointestinal: Normoactive Bowel Sounds, Soft, Non-Tender/Non-Distended, No Hepatosplenomegaly Appreciated, No Pulsatile Masses Urogenital: Deferred Musculoskeletal: Normal Muscle Bulk and Tone Neurological: CN II - XII Grossly Intact, Non-Focal, Speech Normal Integumentary: Normal Moisture and Temperature, Good Turgor, No Jaundice, No Rash Lymphatic: No Cervical Lymphadenopathy Psychiatric: Appropriate Mood and Affect, Good Eye Contact Results Result Diagram: 02/17/17 0551 02/17/17 0551 Results 24 hrs Laboratory Tests Test 02/16/17 08:40 02/16/17 08:59 02/16/17 13:00 02/16/17 13:35 Blood Gas Specimen Source Blood arterial Arterial Blood Date Drawn 02/16/2017 11:11:50 AM Arterial Blood pH (Temp corrected) 7.431 Arterial Blood pCO2 (Temp correct) 26.5 L Arterial Blood pO2 (Temp corrected) 96.7 Arterial Blood HCO3 17.2 L Arterial Blood Base Excess -6.1 L Arterial Blood Oxygen Saturation 96.7 Alex Test ACCEPTAB Arterial Blood Gas Puncture Site Right Radial Arterial Blood Carboxyhemoglobin 0.3 Arterial Blood Methemoglobin 0.1 Blood Gas A-a O2 Differential 21.3 Oxyhemoglobin Percent 96.3 Total Hemoglobin 8.6 L Blood Gas Temperature 37.0 Blood Gas Modality ROOM AIR FiO2 21.0 Blood Gas Notified Whom [facility] Blood Gas Notified Time 02/16/2017 11:25:42 AM Bedside Glucose 94 Urine Color LT. YELLOW Urine Clarity CLEAR Urine pH 5.5 Urine Specific [place] 1.010 Urine Ketones NEGATIVE Urine Nitrite NEGATIVE Urine Bilirubin NEGATIVE Urine Urobilinogen 0.2 E.U./dL Urine Leukocyte Esterase NEGATIVE Urine Hemoglobin NEGATIVE Urine Random Creatinine 36.02 Urine Random Sodium 95 H Urine Glucose NEGATIVE Urine Total Protein < 5.0 Sodium Level 132 L Potassium Level 5.6 H Chloride Level 100 Carbon Dioxide Level 21 Anion Gap 17 H Blood Urea Nitrogen 61 H Creatinine 1.91 H Glucose Level 121 Calcium Level 8.5 Test 02/17/17 05:51 White Blood Count 5.8 Red Blood Count 2.30 L Hemoglobin 7.4 L Hematocrit 22.9 L Mean Corpuscular Volume 99.6 Mean Corpuscular Hemoglobin 32.2 Mean Corpuscular Hemoglobin Concent 32.3 Red Cell Distribution Width 16.9 H Platelet Count 237 Mean Platelet Volume 11.2 H Neutrophils % 60.1 Lymphocytes % 22.9 Monocytes % 13.1 H Eosinophils % 2.1 Basophils % 0.9 Nucleated Red Blood Cells % 0.0 Neutrophils # 3.5 Lymphocytes # 1.3 Monocytes # 0.8 Eosinophils # 0.1 Basophils # 0.1 Nucleated Red Blood Cells # 0.0 Sodium Level 132 L Potassium Level 5.0 Chloride Level 100 Carbon Dioxide Level 23 Anion Gap 14 Blood Urea Nitrogen 56 H Creatinine 1.90 H Glucose Level 94 Calcium Level 8.1 L Iron Level 51 Total Iron Binding Capacity 300 Percent Iron Saturation 17 L Medications Medications Current Medications Metoclopramide HCl (Reglan) 10 mg Q6H PRN IV NAUSEA AND/OR VOMITING; Start at 05:30 Famotidine (Pepcid) 20 mg DAILY PO Last administered on 02/16/17 08:51; Admin Dose 20 MG; Start 02/14/17 at 09:00 Amiodarone HCl (Cordarone) 100 mg DAILY PO Last administered on 02/16/17 08:52 ; Admin Dose 100 MG; Start 02/14/17 at 09:00 Atorvastatin Calcium (Lipitor) 40 mg HS PO Last administered on 02/16/17 20:17 ; Admin Dose 40 MG; Start 02/14/17 at 21:00 Carvedilol (Coreg) 1.5625 mg BID PO Last administered on 02/16/17 08:52; Admin Dose 1.5625 MG; Start 02/14/17 at 09:00 Ferrous Sulfate (Ferrous Sulfate (Ec)) 325 mg TID PO Last administered on 20:17; Admin Dose 325 MG; Start 02/14/17 at 09:00 Isosorbide Mononitrate (Imdur) 30 mg DAILY PO Last administered on 02/16/17 08 :52; Admin Dose 30 MG; Start 02/14/17 at 09:00 Pantoprazole (Protonix Tab) 40 mg BID@,18 PO Last administered on 3/26/17at 05:03; Admin Dose 40 MG; Start 02/14/17 at 06:00 Bumetanide (Bumex) 1 mg DAILY IV Last administered on 02/16/17t 08:51; Admin Dose 1 MG; Start 02/16/17 at 09:00 SAÚL JAQUEZ Feb 17, 2017 07:44
[2017-02-17] MEDS ORDERED: FUROSEMIDE 40 MG INJ IV ONE (08:00)
[2017-02-17] MEDS: FERROUS SULFATE (EC) 325 MG TAB PO SCH ×3 (09:00→20:19)
--- NOTE | 2017-02-17 09:52 | PN ---
DATE: 02/17/2017 SUBJECTIVE: The patient is stable. No acute events overnight. The patient is clinically improving . Scheduled for 2 units of PRBC for today. No other events noted. OBJECTIVE: VITAL SIGNS: Blood pressure 107/62, respirations 15, pulse 63, temperature 98.3. I'S AND O'S: The patient had 400 in, 1600 out. HEENT: Head is normocephalic. NECK: Supple. HEART: Regular rate. LUNGS: Show diminished breath sounds at base. Positive crackles, right lung base greater than left . ABDOMEN: Soft, nontender to palpation without rebound or guarding. EXTREMITIES: Negative for clubbing, cyanosis. No edema. DERMATOLOGIC: No rashes. MUSCULOSKELETAL: No joint effusions. NEUROLOGIC: No change in exam. MEDICATIONS: Reviewed. LABORATORY DATA: Shows sodium 132, potassium 5.0, chloride 103, bicarbonate 23, BUN 56, creatinine 1.90. White count 5.8, hemoglobin 7.4, hematocrit 22.9, and platelet count is 237. ASSESSMENT AND PLAN: 1. Nonoliguric acute kidney injury on top of chronic kidney disease stage IIIB/IV with a previous b aseline creatinine of 1.5 to 2.0 mg/dL. Etiology of acute kidney injury is secondary to hemodynamic s, cardiorenal syndrome. The patient's renal function has been improving with diuretic therapy. Th e patient's urinalysis is bland. No evidence of active sediment. At this point, we will continue c urrent treatment plan. Continue supportive care, renally dose all meds, avoid nephrotoxins. Contin ue Lasix. We will increase dose to 40 mg IV b.i.d. and monitor I's and O's and electrolytes closely . 2. Hyperkalemia, etiology secondary to acute kidney injury and decreased distal salt delivery to co llecting tubules. The patient's potassium levels have improved with diuresis. Low-potassium diet. The patient did receive 1 dose of Kayexalate yesterday. At this point, continue current treatment plan and monitor. 3. Hyponatremia secondary to acute kidney injury causing decreased free water urinary excretion. T he patient will be placed on free water restriction, continue. 4. Mineral bone disorder. Continue to monitor calcium and phosphorus levels. 5. Acute congestive heart failure exacerbation, appears clinically improving. Continue current diu retic regimen. 6. Atrial fibrillation. Currently in sinus rhythm. Continue medical management. 7. History of gastric and colon CA status post surgery and chemotherapy. 8. Pulmonary hypertension. Continue to monitor. Dictated By: ANIL PERALES/LANG Conf#: [id number] DID#: [id number]
[2017-02-17] MEDS ORDERED: BARIUM SULF 2% 450 ML BTL (BERRY SMOOTHIE) PO ONE (10:00)
[2017-02-17] MEDS ORDERED: EPOETIN 10000 UNITS/ML (NON ESRD/NON ONCOLOGY) SC SCH (11:00)
--- NOTE | 2017-02-17 11:17 | CONS ---
DATE OF ADMISSION: 02/14/2017 DATE OF CONSULTATION: 02/17/2017 CARDIOLOGY CONSULTATION HISTORY OF PRESENT ILLNESS: Mr. Rosas is a 66-year-old male with history of heart failure, atrial fi brillation, and chronic kidney disease who presented with shortness of breath, found to be in heart failure with hyperkalemia as well. He has been treated and currently feels much better. REVIEW OF SYSTEMS: Negative except as per HPI. PAST MEDICAL HISTORY: As above including cardiomyopathy and liver cirrhosis. PHYSICAL EXAMINATION: GENERAL: He is in no distress. VITAL SIGNS: Temperature 98.3, pulse 65, blood pressure 107/65. NECK: No jugular venous distention. LUNGS: Clear. CARDIAC: Irregularly irregular rhythm. ABDOMEN: Distended. EXTREMITIES: No clubbing, cyanosis, or edema. CURRENT MEDICATIONS: 1. Erythropoietin. 2. Furosemide. 3. Lipitor. 4. Famotidine. 5. Amiodarone. 6. Coreg 1.5625 b.i.d. and held for blood pressure. 7. Imdur. 8. Protonix. 9. Reglan. LABORATORY RESULTS: White count 5.8, hematocrit 22.9, platelet count 237. Sodium 132, potassium 5. 0, BUN 56, creatinine 1.9. ASSESSMENT AND PLAN: Congestive heart failure with known reduced ejection fraction, several recent admissions, and known severe cardiomyopathy with atrial fibrillation. He has been followed by Dr. Danielle ellsworth on multiple admissions and currently appears more compensated than on admission. We will cont inue current cardiac care. He has known atrial fibrillation and is currently in atrial fibrillation . Given his severe anemia, liver cirrhosis, the decision has previously been made not to anticoagul ate. We will continue amiodarone at 100 mg daily at the current time. It is not clear if this was used for rhythm control or rate control. Dictated By: ABDON RODRIGUEZ/LANG Conf#: [id number] DID#: [id number]
--- NOTE | 2017-02-17 11:43 | CONS ---
Date/Time of Note Date/Time of Note DATE: 02/17/17 TIME: 11:43 Assessment/Plan Assessment/Plan Chief Complaint/Hosp Course Mr. Kathie Rosas is a 66-year-old man that looks older than stated age. 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 Patient has a history of CHF, atrial fibrillation, and CKD. Patient previously reported generalized weakness and poor appetite; however bedside patient is reportedly good appetite and no nausea. Patient denies fevers, chills, cough, abdominal pain, or dysuria. Problems: Consultation Date/Type/Reason Admit Date/Time Feb 14, 2017 at 05:37 Exam/Review of Systems Vital Signs Vitals Vital Signs Date Time Temp Pulse Resp B/P Pulse Ox O2 Delivery O2 Flow Rate FiO2 02/17/17 11:18 98.2 62 19 110/59 99 02/16/17 12:00 Room Air 02/16/17 04:00 2.0 02/14/17 04:16 21 Intake and Output 02/16/17 02/16/17 02/17/17 15:00 23:00 07:00 Intake Total 160 ml 240 ml Output Total 1600 ml Balance -1440 ml 240 ml Results Result Diagram: 02/17/17 0551 02/17/17 0551 Results 24 hrs Laboratory Tests Test 02/16/17 13:00 02/16/17 13:35 02/17/17 05:51 Urine Color LT. YELLOW Urine Clarity CLEAR Urine pH 5.5 Urine Specific [place] 1.010 Urine Ketones NEGATIVE Urine Nitrite NEGATIVE Urine Bilirubin NEGATIVE Urine Urobilinogen 0.2 E.U./dL Urine Leukocyte Esterase NEGATIVE Urine Hemoglobin NEGATIVE Urine Random Creatinine 36.02 Urine Random Sodium 95 H Urine Glucose NEGATIVE Urine Total Protein < 5.0 Sodium Level 132 L 132 L Potassium Level 5.6 H 5.0 Chloride Level 100 100 Carbon Dioxide Level 21 23 Anion Gap 17 H 14 Blood Urea Nitrogen 61 H 56 H Creatinine 1.91 H 1.90 H Glucose Level 121 94 Calcium Level 8.5 8.1 L White Blood Count 5.8 Red Blood Count 2.30 L Hemoglobin 7.4 L Hematocrit 22.9 L Mean Corpuscular Volume 99.6 Mean Corpuscular Hemoglobin 32.2 Mean Corpuscular Hemoglobin Concent 32.3 Red Cell Distribution Width 16.9 H Platelet Count 237 Mean Platelet Volume 11.2 H Neutrophils % 60.1 Lymphocytes % 22.9 Monocytes % 13.1 H Eosinophils % 2.1 Basophils % 0.9 Nucleated Red Blood Cells % 0.0 Neutrophils # 3.5 Lymphocytes # 1.3 Monocytes # 0.8 Eosinophils # 0.1 Basophils # 0.1 Nucleated Red Blood Cells # 0.0 Iron Level 51 Total Iron Binding Capacity 300 Percent Iron Saturation 17 L Medications Medications Current Medications Metoclopramide HCl (Reglan) 10 mg Q6H PRN IV NAUSEA AND/OR VOMITING; Start at 05:30 Famotidine (Pepcid) 20 mg DAILY PO Last administered on 02/16/17 08:51; Admin Dose 20 MG; Start 02/14/17 at 09:00 Amiodarone HCl (Cordarone) 100 mg DAILY PO Last administered on 02/16/17 08:52 ; Admin Dose 100 MG; Start 02/14/17 at 09:00 Atorvastatin Calcium (Lipitor) 40 mg HS PO Last administered on 02/16/17 20:17 ; Admin Dose 40 MG; Start 02/14/17 at 21:00 Carvedilol (Coreg) 1.5625 mg BID PO Last administered on 02/16/17 08:52; Admin Dose 1.5625 MG; Start 02/14/17 at 09:00 Ferrous Sulfate (Ferrous Sulfate (Ec)) 325 mg TID PO Last administered on 20:17; Admin Dose 325 MG; Start 02/14/17 at 09:00 Isosorbide Mononitrate (Imdur) 30 mg DAILY PO Last administered on 02/16/17 08 :52; Admin Dose 30 MG; Start 02/14/17 at 09:00 Pantoprazole (Protonix Tab) 40 mg BID@,18 PO Last administered on 02/17/17 05:03; Admin Dose 40 MG; Start 02/14/17 at 06:00 HARDIK SANTOS Feb 17, 2017 11:43
[2017-02-17] MEDS: AMIODARONE 200 MG TAB PO SCH (14:00)
[2017-02-17] MEDS: ISOSORBIDE MONONITRATE(SR)30 MG TAB PO SCH (14:00)
[2017-02-17] MEDS: FAMOTIDINE 20 MG TAB PO SCH (14:00)
[2017-02-17] MEDS: FUROSEMIDE 40 MG INJ IV SCH ×2 (17:45→17:52)
--- NOTE | 2017-02-17 18:17 | RADRPT ---
PROCEDURE: CT abdomen and pelvis without contrast. CLINICAL INDICATION: Anemia. Abdominal pain. Cancer. TECHNIQUE: CT scan of the abdomen and pelvis without intravenous but with oral contrast was perfor med and is reconstructed at 5 mm contiguous axial intervals from the dome of the diaphragm to the in ferior pubic rami.. The patient was scanned with oral contrast. Sagittal and coronal reformatted i mages were obtained from the axial source images. The calculated radiation dose measures 391 mGy eduardo timeters. The CTDI measures 7 mGy. COMPARISON: CT chest January 08, 2017. FINDINGS: There are large bilateral subpulmonic effusions with small to moderate-sized bilateral pleural effus ions. Atelectasis is present at the right lung base. There is right hilar adenopathy. Coronary ar julito calcifications are seen. The liver is of normal size, contour and attenuation with no mass or ductal dilatation. Gallbladder has been removed. No splenic, adrenal or pancreatic abnormalities present. Kidneys are of normal size and contour. No hydronephrosis or masses seen. Coarse calcification is seen in the lower pole of the left kidney possibly sequela of old infection. Ureters are of normal c ourse and caliber with no stone. No bladder mass or stone is present. Prostate and seminal vesicles appear normal. There is no aneurysm. There are vascular calcifications. No adenopathy is present. There are visib le but nonpathologically enlarged retroperitoneal and mesenteric nodes. No bowel mass or obstruction is present. The appendix is normal. No phlegmon or pneumoperitoneum is visualized. There is a small volume of ascites. The osseous structures are intact. IMPRESSION: No abdominal mass or adenopathy. Ascites. Vascular calcifications. Large bilateral subpulmonic effusions with small to moderate-sized bilateral pleural effusions. Rig ht hilar adenopathy. Atelectasis right lung base. Vascular calcifications. .Bobby Murillo MD, MD Date Time Electronically viewed and signed by .Bobby Murillo MD, on 02/17/2017 18:17 .A/
[2017-02-17] MEDS: ATORVASTATIN 40 MG TAB PO SCH (20:19)
[2017-02-18] VITALS (23 sets, daily range): BP systolic 100–118; BP diastolic 55–74; PULSE 54–59; RESP 14–24
[2017-02-18] MEDS: PANTOPRAZOLE (EC) 40 MG TAB PO SCH ×2 (05:10→18:37)
[2017-02-18] MEDS: FUROSEMIDE 40 MG INJ IV SCH ×2 (05:11→18:37)
[2017-02-18 06:03] LABS: ADD SCAN DIFF NO
[2017-02-18 06:34] LABS: INR 1.26; PROTIME 15.9 Sec (12.2-14.2); PT RATIO 1.2
[2017-02-18 06:42] LABS: POTASSIUM 4.4 mmol/L (3.5-5.1)
[2017-02-18 06:44] LABS: CREATININE 1.57 mg/dl (0.61-1.24)
[2017-02-18 06:45] LABS: CALCIUM 8.3 mg/dl (8.4-10.2)
[2017-02-18 06:46] LABS: BASOPHIL # 0.1 10^3/ul (0.0-0.1); BASOPHILS % 1.1 % (0.0-2.0); EOSINOPHILS # 0.1 10^3/ul (0.0-0.5); EOSINOPHILS % 1.5 % (0.0-7.0); HEMATOCRIT 29.9 % (42.0-52.0); HEMOGLOBIN 10.1 g/dl (14.0-18.0); LYMPHOCYTES # 1.2 10^3/ul (0.8-2.9); LYMPHOCYTES % 25.6 % (15.0-51.0); MEAN CORPUSCULAR HEMOGLOBIN 31.6 pg (29.0-33.0); MEAN CORPUSCULAR HGB CONC 33.8 g/dl (32.0-37.0); MEAN CORPUSCULAR VOLUME 93.4 fl (82.0-101.0); MONOCYTE # 0.5 10^3/ul (0.3-0.9); NEUTROPHIL # 2.8 10^3/ul (1.6-7.5); NEUTROPHILS % 59.9 % (39.0-77.0); PLATELET COUNT 240 10^3/UL (140-415); RED CELL DISTRIBUTION WIDTH 16.4 % (11.5-14.5); WHITE BLOOD COUNT 4.6 10^3/ul (4.8-10.8)
[2017-02-18 07:13] LABS: MAGNESIUM 1.6 mg/dl (1.7-2.5); PHOSPHORUS 4.7 mg/dl (2.5-4.9)
[2017-02-18] MEDS ORDERED: MAGNESIUM SULFATE 2 GM/50 ML 50 ML IVPB ONE (09:00)
[2017-02-18] MEDS: AMIODARONE 200 MG TAB PO SCH (09:39)
[2017-02-18] MEDS: ISOSORBIDE MONONITRATE(SR)30 MG TAB PO SCH (09:40)
[2017-02-18] MEDS: FAMOTIDINE 20 MG TAB PO SCH (09:40)
--- NOTE | 2017-02-18 09:41 | PN ---
DATE: 02/18/2017 HISTORY SUBJECTIVE: The patient is stable, no acute events overnight. The patient is pending EGD, colonoscopy today. The patient received 2 units of PRBC yesterday, tolerated well. OBJECTIVE: VITAL SIGNS: Blood pressure 118/66, respiration 18, pulse 58, temperature 98.2. I's and O's 400 in with 600 out. HEENT: Head is normocephalic. NECK: Supple. HEART: Regular rate. LUNGS: Show diminished breath sounds at the base. ABDOMEN: Soft, nontender to palpation. No rebound or guarding. EXTREMITIES: Negative for clubbing, cyanosis. No edema. DERMATOLOGIC: No rashes. MUSCULOSKELETAL: No joint effusions. NEUROLOGIC: No change in exam. MEDICATIONS: The patient's medications have been reviewed. LABORATORY DATA: Shows a sodium 130, potassium 4.4, chloride 100, BUN 47, creatinine 1.57, magnesiu m 1.6. White count 12.6, hemoglobin 10.1, hematocrit 29.9, platelet count is 240. IMAGING: Patient's CT scan of abdomen and pelvis was reviewed, showed evidence of ascites and bilat eral pleural effusions. ASSESSMENT AND PLAN: 1. Nonoliguric acute kidney injury on top of chronic kidney disease stage IIIB/IV, with a previous baseline creatinine of 1.5 2.0 mg/dL. Etiology of acute kidney injury is secondary to hemody namics, cardiorenal syndrome. The patient's renal function has been improving with diuretic therapy . At this point, continue current treatment plan. Continue Lasix 40 mg IV t.i.d., monitor I's and O's and renal function closely. 2. Hyperkalemia. Etiology secondary to acute kidney injury. The patient's potassium levels have n ormalized. Continue diuretic therapy, continue low-potassium diet. 3. Anemia, likely of chronic disease. The patient was transfused 2 units of PRBC. GI workup is on going. The patient is pending EGD, colonoscopy. No evidence of bleed at this time. 4. Hyponatremia secondary to acute kidney injury causing decreased free water urinary excretion. T he patient was on a free water restriction of 800 mL daily. Continue to monitor. 5. Mineral bone disorder. Continue to monitor calcium and phosphorus levels. 6. Acute Congestive heart failure exacerbation, bilateral pleural effusion. The patient is clinica lly improving. Continue diuretic regimen. 7. Atrial fibrillation, currently in sinus rhythm. Continue medical management. 8. History of gastric and colon CA. 9. Pulmonary hypertension. Continue to monitor. Dictated By: NAIL PERALES/LANG Conf#: [id number] DID#: [id number]
[2017-02-18] MEDS: FERROUS SULFATE (EC) 325 MG TAB PO SCH ×3 (09:42→20:39)
[2017-02-18 14:02] LABS: MICROALBUMIN 2.1 mg/dL
--- NOTE | 2017-02-18 16:31 | PN ---
Date/Time of Note Date/Time of Note DATE: 02/18/17 TIME: 16:28 Assessment/Plan VTE Prophylaxis VTE Prophylaxis Intervention: SCD's Lines/Catheters IV [facility] Urinary Cath still in place: No Assessment/Plan Chief Complaint/Hosp Course 1. Acute exacerbation of CHF (congestive heart failure) with BNP = 16,700: improved 2. Nonoliguric THEO on CKD Stage IIIB/IV with previous baseline creatinine between 1.5 to 2 mg/dL-improved Etiology of acute kidney injury is likely secondary to the hemodynamics, cardiorenal syndrome with possible tubular injury Nephrology on board 3. Hyperkalemia 2/2 #2-resolved 4. Worsening Anemia 2/2 CKD r/o occult GI bleed based on #5 Stool OB test-neg x3 Will d/w GI if patient is a candidate for fpc anticoagulation for Paroxysmal Afib 5. Hx of Gastric and Colon Ca > 20yrs ago s/p chemo and surgery CT abdomen shows no masses, plan is for EGD today 6. Cachexia 7. Chronic cirrhosis Per family was 2/2 chemo 8. Paroxysmal Afib 9. PreDM : a1c 6.2 PROPHYLAXIS: PPI / Scds Problems: Subjective 24 Hr Interval Summary Constitutional: no complaints Exam/Review of Systems Vital Signs Vitals Vital Signs Date Time Temp Pulse Resp B/P Pulse Ox O2 Delivery O2 Flow Rate FiO2 02/18/17 16:17 56 02/18/17 16:07 98.1 24 104/55 98 Room Air 02/16/17 04:00 2.0 Exam Constitutional: alert, oriented Respiratory: clear to auscultation Cardiovascular: regular rate and rhythm Gastrointestinal: soft, No distended Musculoskeletal: nl extremities to inspection Results Result Diagram: 02/18/17 0536 02/18/17 0536 Results 24 hrs Laboratory Tests Test 02/18/17 05:36 White Blood Count 4.6 #L Red Blood Count 3.20 #L Hemoglobin 10.1 #L Hematocrit 29.9 #L Mean Corpuscular Volume 93.4 Mean Corpuscular Hemoglobin 31.6 Mean Corpuscular Hemoglobin Concent 33.8 Red Cell Distribution Width 16.4 H Platelet Count 240 Mean Platelet Volume 11.0 H Neutrophils % 59.9 Lymphocytes % 25.6 Monocytes % 11.0 Eosinophils % 1.5 Basophils % 1.1 Nucleated Red Blood Cells % 0.0 Neutrophils # 2.8 Lymphocytes # 1.2 Monocytes # 0.5 Eosinophils # 0.1 Basophils # 0.1 Nucleated Red Blood Cells # 0.0 Prothrombin Time 15.9 H Prothrombin Time Ratio 1.2 INR International Normalized Ratio 1.26 Activated Partial Thromboplast Time 39.0 H Sodium Level 130 L Potassium Level 4.4 Chloride Level 100 Carbon Dioxide Level 22 Anion Gap 12 Blood Urea Nitrogen 47 H Creatinine 1.57 H Glucose Level 79 Calcium Level 8.3 L Phosphorus Level 4.7 Magnesium Level 1.6 L Medications Medications Current Medications Metoclopramide HCl (Reglan) 10 mg Q6H PRN IV NAUSEA AND/OR VOMITING; Start at 05:30 Famotidine (Pepcid) 20 mg DAILY PO Last administered on 02/18/17 09:40; Admin Dose 20 MG; Start 02/14/17 at 09:00 Amiodarone HCl (Cordarone) 100 mg DAILY PO Last administered on 02/18/17 09:39 ; Admin Dose 100 MG; Start 02/14/17 at 09:00 Atorvastatin Calcium (Lipitor) 40 mg HS PO Last administered on 02/17/17 20:19 ; Admin Dose 40 MG; Start 02/14/17 at 21:00 Carvedilol (Coreg) 1.5625 mg BID PO Last administered on 02/18/17 09:40; Admin Dose 1.5625 MG; Start 02/14/17 at 09:00 Ferrous Sulfate (Ferrous Sulfate (Ec)) 325 mg TID PO Last administered on 14:13; Admin Dose 325 MG; Start 02/14/17 at 09:00 Isosorbide Mononitrate (Imdur) 30 mg DAILY PO Last administered on 02/18/17 09 :40; Admin Dose 30 MG; Start 02/14/17 at 09:00 Pantoprazole (Protonix Tab) 40 mg BID@06,18 PO Last administered on 02/18/17 05:10; Admin Dose 40 MG; Start 02/14/17 at 06:00 CORBY BOYCE Feb 18, 2017 16:31
[2017-02-18] MEDS ORDERED: LIDOCAINE 4% SOLUTION 50 ML BTL ONE (17:19)
[2017-02-18] MEDS ORDERED: FENTAnyl 50 MCG/ML VIAL ONE (17:19)
[2017-02-18] MEDS ORDERED: PROPOFOL 20 ML ONE (17:19)
--- NOTE | 2017-02-18 18:55 | RADRPT ---
PROCEDURE: XR Chest. CLINICAL INDICATION: 66-year-old male with shortness of breath and suspected CHF. TECHNIQUE: Single frontal view of the chest was obtained COMPARISON: Chest x-ray 02/14/2017. FINDINGS: The soft tissues are normal. There are osteophytes in the thoracic spine. The heart is enlarged. The cardiomediastinal silhouette and hilar structures are normal. The pulmonary vasculature is incre ased. There are vascular calcifications in the aortic arch. There is bilateral interstitial and face t there are bilateral perihilar interstitial and mixed alveolar infiltrates are more extensive in th e bases of the lungs. There are bilateral pleural effusions. The left diaphragm is less well visua lized when compared to the prior study. IMPRESSION: 1. Cardiomegaly with congestive heart failure and bilateral pulmonary edema which has worsened sligh tly when compared to the prior study. 2. Bilateral pleural effusions. 3. Atherosclerosis of the aortic arch. RPTAT:AAJJ Physician Jenna Date Time Electronically viewed and signed by Estrada Shelley Physician on 02/18/2017 18:55 CONNIE/
[2017-02-18] MEDS: ATORVASTATIN 40 MG TAB PO SCH (20:39)
[2017-02-18] MEDS: SUCRALFATE 1 GM TAB PO SCH (20:39)
[2017-02-19 05:34] LABS: ADD SCAN DIFF NO
[2017-02-19 05:44] LABS: BASOPHIL # 0.1 10^3/ul (0.0-0.1); EOSINOPHILS # 0.1 10^3/ul (0.0-0.5); EOSINOPHILS % 1.9 % (0.0-7.0); HEMATOCRIT 30.6 % (42.0-52.0); HEMOGLOBIN 10.3 g/dl (14.0-18.0); LYMPHOCYTES # 1.2 10^3/ul (0.8-2.9); LYMPHOCYTES % 23.1 % (15.0-51.0); MEAN CORPUSCULAR HEMOGLOBIN 31.1 pg (29.0-33.0); MEAN CORPUSCULAR HGB CONC 33.7 g/dl (32.0-37.0); MEAN CORPUSCULAR VOLUME 92.4 fl (82.0-101.0); MEAN PLATELET VOLUME 10.8 fl (7.4-10.4); MONOCYTE # 0.5 10^3/ul (0.3-0.9); MONOCYTES % 10.3 % (0.0-11.0); NEUTROPHIL # 3.3 10^3/ul (1.6-7.5); NEUTROPHILS % 63.1 % (39.0-77.0); PLATELET COUNT 226 10^3/UL (140-415); RED BLOOD COUNT 3.31 10^6/ul (4.70-6.10); RED CELL DISTRIBUTION WIDTH 16.1 % (11.5-14.5); WHITE BLOOD COUNT 5.2 10^3/ul (4.8-10.8)
[2017-02-19 06:08] LABS: POTASSIUM 4.1 mmol/L (3.5-5.1)
--- NOTE | 2017-02-19 06:08 | GILP ---
DATE OF PROCEDURE: 02/18/2017 PROCEDURE: Esophagogastroduodenoscopy with biopsies. BRIEF HISTORY AND INDICATIONS: The patient is being evaluated for anemia. PREMEDICATION: Monitored anesthesia care by anesthesiologist. SURGEON: Yoana Ng MD. INSTRUMENT USED: Olympus panendoscope. TECHNIQUE: After informed consent, with the patient/relatives understanding the procedure, its indic ations, potential risks and complications, including but not limited to: allergic reaction, bleeding , perforation or infection, and after all pertinent questions were answered to the patient's satisfa ction, the patient/relatives signed witnessed informed consent. Following this, premedication was administered slowly IV push under careful cardiovascular and respi ratory monitoring with pulse oximetry, automatic blood pressure and lunchroom monitor. Once the sedative effect was achieved the patient was place in the left lateral decubitus, the panen doscope was introduced and advanced under visual control. FINDINGS: Careful examination of the upper gastrointestinal tract, both on insertion as well as wit hdrawal of the instrument disclosed the following findings: ESOPHAGUS: The distal esophagus shows moderate erythema and edema of the mucosa at the EG junction. STOMACH: Upon entrance to the stomach air was insufflated, the gastric raphael distended normally. T here is severe erythema, edema and erosion of the mucosa. Biopsies were obtained to rule out H. pyl evan infection. PYLORUS: The pylorus appears patent and within normal limits, with no evidence of gastric outlet ob struction. DUODENUM: The duodenal mucosa was carefully examined in the duodenal bulb as well as the second por tion of the duodenum and appears unremarkable with no evidence of duodenitis, ulcer or neoplasm. The instrument was then withdrawn, the patient tolerated the procedure well and was transfer out of the endoscopy suite awake, and in good condition to continue recovery under observation IMPRESSION: 1. Moderate esophagitis. 2. Severe gastritis, rule out Helicobacter pylori infection, biopsies obtained. PLAN: The patient will be treated with PPI b.i.d. Monitor H and H and consider colonoscopy if furt her bleeding should be suspected. Dictated By: YOANA NG MS/LANG Conf#: [id number] DID#: [id number] CC: DANETTE ISSA MD;*EndCC*
[2017-02-19 06:11] LABS: CREATININE 1.53 mg/dl (0.61-1.24); PHOSPHORUS 4.4 mg/dl (2.5-4.9)
[2017-02-19 06:12] LABS: CALCIUM 8.4 mg/dl (8.4-10.2); MAGNESIUM 1.9 mg/dl (1.7-2.5)
[2017-02-19] MEDS: PANTOPRAZOLE (EC) 40 MG TAB PO SCH (06:12)
[2017-02-19] MEDS: FUROSEMIDE 40 MG INJ IV SCH (06:12)
[2017-02-19 08:24] VITALS: BP 126/71; RESP 18
[2017-02-19] MEDS: FERROUS SULFATE (EC) 325 MG TAB PO SCH ×2 (08:39→12:55)
[2017-02-19] MEDS: AMIODARONE 200 MG TAB PO SCH (08:41)
[2017-02-19] MEDS: SUCRALFATE 1 GM TAB PO SCH ×2 (08:41→12:55)
[2017-02-19] MEDS: ISOSORBIDE MONONITRATE(SR)30 MG TAB PO SCH (08:42)
--- NOTE | 2017-02-19 10:06 | PDOCDIS ---
Discharge Instructions CONDITION Patient Condition: Good HOME CARE INSTRUCTIONS: Diet Instructions: Reduced Sodium ACTIVITY: Activity Restrictions: No Restrictions FOLLOW UP/APPOINTMENTS Appointments F/U WITH YOUR PCP IN 1-2 WEEKS CORBY BOYCE Feb 19, 2017 10:06
--- NOTE | 2017-02-19 11:27 | PN ---
DATE: 02/19/2017 CARDIOLOGY FOLLOWUP SUBJECTIVE: Discussed with the staff. Rhythm strip was reviewed. The patient with no chest pain o r pressure, no palpitation, shortness of breath has improved. MEDICATIONS: Reviewed. PHYSICAL EXAMINATION: VITAL SIGNS: Temperature 98.6, heart rate of 56, blood pressure 126/71, respiratory rate of 18. HEENT: Normocephalic, atraumatic. . Pupils are equal. CARDIOVASCULAR: Bradycardic. Systolic murmur. PULMONARY: With no wheezes. GASTROINTESTINAL: Soft, nontender. EXTREMITIES: With no significant edema. NEUROLOGIC: Awake and alert. PSYCHIATRIC: Calm, pleasant. LABORATORY: Sodium 130, potassium 4.1, BUN of 43, creatinine 1.5, glucose 74, magnesium 1.9. ASSESSMENT AND PLAN: 1. Congestive heart failure, no severe cardiomyopathy or paroxysmal atrial fibrillation. 2. Anemia, status post EGD. RECOMMENDATIONS: I will change the Lasix to Bumex p.o. We will continue the rest of cardiac care. Not on EMMIE inhibitor due to severe hyperkalemia. Resume aspirin or Plavix or both once okay from GI standpoint. Dictated By: COLIN BERGERON MD AV/NTS Conf#: [id number] DID#: [id number] CC: CORBY BOYCE MD;*End*
--- NOTE | 2017-02-19 12:27 | PN ---
DATE: 02/19/2017 SUBJECTIVE: The patient is clinically stable. No acute events overnight. No fevers, chills, nause a, vomiting, or shortness of breath. OBJECTIVE: VITAL SIGNS: Blood pressure is 2236/71, respirations 18, pulse is 67, temperature 98.6. HEENT: Head is normocephalic. NECK: Supple. HEART: Regular rate. LUNGS: Diminished breath sounds at base. ABDOMEN: Soft, nontender to palpation without rebound or guarding. EXTREMITIES: Negative for clubbing, cyanosis, edema. DERMATOLOGIC: No rashes. MUSCULOSKELETAL: No joint effusions. NEUROLOGIC: No change in exam. MEDICATIONS: The patient's medications have been reviewed. LABORATORY DATA: Sodium 138, potassium 4.1, BUN 43, creatinine 1.53. White count 5.2, hemoglobin 1 0.3, hematocrit 30.6, platelet count is 226. ASSESSMENT AND PLAN: 1. Nonoliguric acute kidney injury on top of chronic kidney disease stage III/IV with previous base line creatinine of 1.5 to 2.0 mg/dL. Etiology of acute kidney injury is secondary to cardiorenal sy ndrome. The patient is clinically improved with diuretic therapy. At this point, continue current treatment plan, supportive care, renally dose all meds, avoid nephrotoxins. 2. Hyponatremia secondary to acute kidney injury: Patient on free water restriction. Continue to monitor. 3. Anemia: Continue to monitor hemoglobin and hematocrit levels. The patient is status post blood transfusion. EGD showed erosive esophagitis. Continue proton pump inhibitor. 4. Mineral bone disorder: Monitor calcium and phosphorus levels. 5. History of congestive heart failure exacerbation: Clinically improving. Continue medical manag ement. 6. Atrial fibrillation: Currently in sinus rhythm. Continue current treatment plan. 7. History of gastric and colon carcinoma. 8. Pulmonary hypertension. 9. Hyperkalemia: Resolved. Dictated By: ANIL PERALES/LANG Conf#: [id number] DID#: [id number]
--- NOTE | 2017-02-19 13:19 | CONS ---
Date/Time of Note Date/Time of Note DATE: 02/19/17 TIME: 13:08 Consult Date/Type/Reason Admit Date/Time Feb 14, 2017 at 05:37 Initial Consult Date Subjective * course reviewed with nurse * patient seen and examined * no complaints of hematemesis nor hematochezia nor abdominal pain * S/P EGD 02/18/2017 Moderate esophagitis.Severe gastritis, rule out Helicobacter pylori infection, biopsies obtained. * latest hemoglobin 10 Objective Vital Signs Date Time Temp Pulse Resp B/P Pulse Ox O2 Delivery O2 Flow Rate FiO2 02/19/17 08:24 98.6 56 18 126/71 97 02/18/17 18:40 Room Air 02/18/17 17:28 5 Intake and Output 02/18/17 02/18/17 02/19/17 15:00 23:00 07:00 Intake Total 50 ml 200 ml Output Total 400 ml 360 ml Balance 50 ml -400 ml -160 ml Exam Constitutional: alert, oriented, thin Psych: nl mood/affect Respiratory: clear to auscultation, normal air movement Cardiovascular: regular rate and rhythm Gastrointestinal: soft, non-tender Musculoskeletal: nl extremities to inspection Results/Medications Result Diagram: 02/19/17 0450 02/19/17 0450 Results 24 hrs Laboratory Tests Test 02/19/17 04:50 White Blood Count 5.2 Red Blood Count 3.31 L Hemoglobin 10.3 L Hematocrit 30.6 L Mean Corpuscular Volume 92.4 Mean Corpuscular Hemoglobin 31.1 Mean Corpuscular Hemoglobin Concent 33.7 Red Cell Distribution Width 16.1 H Platelet Count 226 Mean Platelet Volume 10.8 H Neutrophils % 63.1 Lymphocytes % 23.1 Monocytes % 10.3 Eosinophils % 1.9 Basophils % 1.0 Nucleated Red Blood Cells % 0.0 Neutrophils # 3.3 Lymphocytes # 1.2 Monocytes # 0.5 Eosinophils # 0.1 Basophils # 0.1 Nucleated Red Blood Cells # 0.0 Sodium Level 130 L Potassium Level 4.1 Chloride Level 98 Carbon Dioxide Level 23 Anion Gap 13 Blood Urea Nitrogen 43 H Creatinine 1.53 H Glucose Level 74 Calcium Level 8.4 Phosphorus Level 4.4 Magnesium Level 1.9 Medications Current Medications Metoclopramide HCl (Reglan) 10 mg Q6H PRN IV NAUSEA AND/OR VOMITING; Start at 05:30 Amiodarone HCl (Cordarone) 100 mg DAILY PO Last administered on 02/19/17 08:41 ; Admin Dose 100 MG; Start 02/14/17 at 09:00 Atorvastatin Calcium (Lipitor) 40 mg HS PO Last administered on 02/18/17 20:39 ; Admin Dose 40 MG; Start 02/14/17 at 21:00 Carvedilol (Coreg) 1.5625 mg BID PO Last administered on 02/19/17 08:42; Admin Dose 1.5625 MG; Start 02/14/17 at 09:00 Ferrous Sulfate (Ferrous Sulfate (Ec)) 325 mg TID PO Last administered on 08:39; Admin Dose 325 MG; Start 02/14/17 at 09:00 Isosorbide Mononitrate (Imdur) 30 mg DAILY PO Last administered on 02/19/17 08 :42; Admin Dose 30 MG; Start 02/14/17 at 09:00 Pantoprazole (Protonix Tab) 40 mg BID@06,18 PO Last administered on 02/19/17 06:12; Admin Dose 40 MG; Start 02/14/17 at 06:00 Sucralfate (Carafate) 1 gm QID PO Last administered on 02/19/17 08:41; Admin Dose 1 GM; Start 02/18/17 at 21:00 Bumetanide (Bumex) 2 mg DAILY PO ; Start 02/20/17 at 09:00 Assessment/Plan Additional Assessment/Plan Assessment * Anemia hemoglobin 10.3 * S/P EGD 02/18/2017 moderate esophagitis,severe gastritis r/o H pylori infection Biopsied * History of gastric and colon cancer * Congestive heart failure improved * * Plan * continue ppi * monitor H and H q 6,transfuse per protocol ELSY SEYMOUR MD Feb 19, 2017 13:18
--- NOTE | 2017-02-19 18:16 | DS ---
DATE OF ADMISSION: 02/14/2017 DATE OF DISCHARGE: 02/19/2017 DISCHARGE DIAGNOSES: 1. Congestive heart failure exacerbation. Continue Bumex and Aldactone as outpatient. It is now r esolved. 2. Acute on chronic kidney disease, likely secondary to cardiorenal syndrome, now stable. 3. Hyperkalemia, resolved. 4. Anemia, likely secondary to chronic disease. Stool occult blood was negative x3 and EGD showed no signs of bleeding. 5. History of gastric and colon cancer over 20 years ago. EGD was negative for any masses. CT abd omen was also negative for any GI pathology. 6. Chronic cirrhosis, probably from chemo per the family. 7. Paroxysmal atrial fibrillation, on Eliquis. 8. Prediabetes. A1c is 6.2. HOSPITAL COURSE: The patient is a 66-year-old male with history of CHF, AFib, as well as CKD. The patient presents with CHF exacerbation with elevated BNP. The patient did also have nonbloody, nonb ilious nausea, vomiting. The patient had been having poor appetite, does have a history of colon ca ncer. The patient had an abdominal pelvis CT that showed no abdominal mass or adenopathy. It did s how some ascites and large bilateral subpulmonic effusions. The patient did have an EGD that showed moderate esophagitis and severe gastritis. Recommendation was to continue PPI. The patient also h ad nonoliguric acute kidney injury on top of CKD, stage III/IV. Etiology of the acute injury second bang to cardiorenal syndrome, as the patient's acute kidney injury, improved with diuretic therapy, h ence the patient was seen by cardiology and nephrology during the hospitalization as well as GI. Th e patient was felt to be stable for discharge as his CHF exacerbation did resolve. Recommendation w as to continue his Bumex as an outpatient. On day of discharge, the patient's vitals, labs, physica l exam were stable. The patient had no acute complaints and questions were answered. CONDITION ON DISCHARGE: Stable. DISPOSITION: To home. MEDICATIONS: The patient is to continue usual home medications. No new medications prescribed. FOLLOWUP: The patient is to follow up with his PCP in 1 to 2 weeks. Greater than 30 minutes was spent coordinating discharge of patient. Dictated By: CORBY BOYCE MD BS/NTS Conf#: [id number] DID#: [id number] CC: DANETTE ISSA MD;*End*
[2017-02-20] MEDS ORDERED: BUMETANIDE 1 MG TAB PO SCH (09:00)
== END 2017-02-19 13:05 | disposition home or self-care (01) | DRG 291 ==
LOC: E/R 01:14 → TEL 05:37 → MS1 02-18 23:00
PROVIDERS: ADMIT Family Medicine; ATTEND Family Medicine
PROC: 30233N1 Transfusion of Nonautologous Red Blood Cells into Peripheral Vein, Percutaneous Approach (ICD-10-PCS; principal; 2017-02-17)
PROC: 0DB68ZX Excision of Stomach, Via Natural or Artificial Opening Endoscopic, Diagnostic (ICD-10-PCS; 2017-02-18)
DX: I13.0 Hypertensive heart and chronic kidney disease with heart failure and stage 1 through stage 4 chronic kidney disease, or unspecified chronic kidney disease (principal); I50.23 Acute on chronic systolic (congestive) heart failure; N17.0 Acute kidney failure with tubular necrosis; R64 Cachexia; R18.8 Other ascites; N18.4 Chronic kidney disease, stage 4 (severe); I27.2 Other secondary pulmonary hypertension; E87.1 Hypo-osmolality and hyponatremia; K74.60 Unspecified cirrhosis of liver; Z68.1 Body mass index [BMI] 19.9 or less, adult; E87.5 Hyperkalemia; Z91.11 Patient's noncompliance with dietary regimen; K20.9 Esophagitis, unspecified; K29.70 Gastritis, unspecified, without bleeding; D50.9 Iron deficiency anemia, unspecified; Z85.038 Personal history of other malignant neoplasm of large intestine; Z85.028 Personal history of other malignant neoplasm of stomach; I48.91 Unspecified atrial fibrillation; R73.03 Prediabetes
CPT/HCPCS: 36415; 36430; 36600; 71010; 74176; 80048; 80053; 81003; 82043; 82270; 82378; 82803; 82962; 83036; 83540; 83735; 83880; 84100; 84155; 84300; 84443; 84484; 85025; 85610; 85730; 86850; 86900; 86901; 86920; 88305; 88312; 93005; 94644; 96361; 96374; 96375; J0610; J0885; J1815; J1940; J2405; J3010; J3475; J7040; P9016

== ENCOUNTER 2017-03-13 19:48 | Inpatient (IN) | payer MEDICARE, OTHER ==
[~2017-03-13] VITALS: Ht 177.8 cm; Wt 60.6 kg
[2017-03-13 21:45] LABS: ADD SCAN DIFF NO
[2017-03-13] MEDS ORDERED: METO10TA96 PO (21:49)
[2017-03-13 21:57] LABS: INR 1.26; PROTIME 15.9 Sec (12.2-14.2); PT RATIO 1.2
[2017-03-13 21:58] LABS: PARTIAL THROMBOPLASTIN TIME 37.4 Sec (25.0-35.0)
[2017-03-13 22:15] LABS: BASOPHILS % 0.6 % (0.0-2.0); EOSINOPHILS # 0.1 10^3/ul (0.0-0.5); EOSINOPHILS % 1.4 % (0.0-7.0); HEMATOCRIT 29.5 % (42.0-52.0); HEMOGLOBIN 9.4 g/dl (14.0-18.0); LYMPHOCYTES # 1.4 10^3/ul (0.8-2.9); LYMPHOCYTES % 19.9 % (15.0-51.0); MEAN CORPUSCULAR HEMOGLOBIN 31.1 pg (29.0-33.0); MEAN CORPUSCULAR HGB CONC 31.9 g/dl (32.0-37.0); MEAN CORPUSCULAR VOLUME 97.7 fl (82.0-101.0); MEAN PLATELET VOLUME 11.8 fl (7.4-10.4); MONOCYTE # 0.8 10^3/ul (0.3-0.9); MONOCYTES % 11.1 % (0.0-11.0); NEUTROPHIL # 4.7 10^3/ul (1.6-7.5); PLATELET COUNT 263 10^3/UL (140-415); RED BLOOD COUNT 3.02 10^6/ul (4.70-6.10); RED CELL DISTRIBUTION WIDTH 16.3 % (11.5-14.5); WHITE BLOOD COUNT 7.1 10^3/ul (4.8-10.8)
[2017-03-13 22:28] LABS: POTASSIUM 4.2 mmol/L (3.5-5.1)
[2017-03-13 22:30] LABS: CREATININE 2.54 mg/dl (0.61-1.24)
[2017-03-13 22:32] LABS: CALCIUM 8.8 mg/dl (8.4-10.2)
[2017-03-13 22:52] LABS: TROPONIN-I 0.013 ng/ml (0.00-0.12)
--- NOTE | 2017-03-13 23:03 | RADRPT ---
PROCEDURE: Portable chest x-ray. CLINICAL INDICATION: Chest pain. TECHNIQUE: Portable AP view of the chest. COMPARISON: 02/18/2017. FINDINGS: Pulmonary edema is improved since the prior examination. There are small bilateral pleural effusion s and patchy bibasilar opacities, not significantly changed.. The cardiac silhouette is enlarged. T here are aortic calcifications. There is no pneumothorax. IMPRESSION: 1. Pulmonary edema, improved since the prior examination. 2. No significant change in small bilateral pleural effusions and patchy bibasilar opacities, possi tejinder representing atelectasis or pneumonia. 3. Enlarged cardiac silhouette and aortic atherosclerosis. RPTAT: HTAR .Paddy Romero MD, MD Date Time Electronically viewed and signed by .Paddy Romero MD, on 03/13/2017 23:02 .R/
[2017-03-13] MEDS ORDERED: ACETAMINOPHEN 325 MG TAB PO PRN (23:30)
[2017-03-13] MEDS ORDERED: ONDANSETRON 4 MG INJ IV PRN (23:30)
[2017-03-13] MEDS ORDERED: FUROSEMIDE 40 MG INJ IV ONE (23:30)
--- NOTE | 2017-03-13 23:33 | ERA ---
ER Documentation Chief Complaint Date/Time DATE: 03/13/17 TIME: 23:30 Chief Complaint chest pain x 1 day, weakness HPI This is a 66-year-old male who presents to the emergency room for evaluation of cough, shortness of breath and bilateral lower extremity swelling for the past 48 hours. 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 Macias who sent the patient in for evaluation of CHF. This patient states that he was admitted in the hospital last month for the same. He is on diuretics, but states that his symptoms are not improving. ROS All systems reviewed and are negative except as per history of present illness. Medications Home Meds Active Scripts Pantoprazole* (Pantoprazole*) 40 Mg Tablet., 40 MG PO BID@06,18 for 30 Days Prov:ANDIE ISIDRO 01/14/17 Ferrous Sulfate* (Ferrous Sulfate*) 325 Mg Tabec, 325 MG PO TID for 30 Days, TAB Prov:ANDIE ISIDRO 01/14/17 Carvedilol* (Carvedilol*) 3.125 Mg Tablet, 1.5625 MG PO BID for 30 Days, TAB Prov:ANDIE ISIDRO 01/14/17 Bumetanide* (Bumetanide*) 1 Mg Tablet, 1 MG PO BID for 30 Days, TAB Prov:ANDIE ISIDRO 01/14/17 Amiodarone Hcl* (Amiodarone Hcl*) 200 Mg Tablet, 100 MG PO DAILY for 30 Days, TAB Prov:ANDIE ISIDRO 01/14/17 Reported Medications Metoclopramide Hcl* (Metoclopramide Hcl*) 10 Mg Tablet, 10 MG PO TID, TAB 03/13/17 Isosorbide Mononitrate* (Isosorbide Mononitrate*) 30 Mg Tab.er.24h, 30 MG PO DAILY, TAB 01/07/17 Apixaban* (Eliquis*) 2.5 Mg Tablet, 2.5 MG PO BID, TAB 01/07/17 Allopurinol* (Allopurinol*) 300 Mg Tablet, 300 MG PO DAILY, TAB 01/07/17 Atorvastatin* (Atorvastatin*) 40 Mg Tablet, 40 MG PO HS, TAB 09/07/14 Allergies Allergies: Coded Allergies: No Known Allergy (Unverified , 03/13/17) PMhx/Soc History of Surgery: Yes (COLON RESECTION R/T COLON CA) Anesthesia Reaction: No Hx Neurological Disorder: No Hx Respiratory Disorders: Yes (COPD) Hx Cardiac Disorders: Yes (Afib, CHF HTN) Hx Psychiatric Problems: No Hx Miscellaneous Medical Probl: Yes (deccompensated liver cirhossis, DM, COLON CA) Hx Alcohol Use: Yes Hx Substance Use: No Hx Tobacco Use: No Smoking Status: Never smoker Physical Exam Vitals Vital Signs Date Time Temp Pulse Resp B/P Pulse Ox O2 Delivery O2 Flow Rate FiO2 03/13/17 22:17 Nasal Cannula 2 03/13/17 20:15 98.7 69 20 111/62 100 Physical Exam INITIAL VITAL SIGNS: Reviewed by me GENERAL: The patient is well developed and appropriate for usual state of health in no apparent distress HEENT: Pupils equal, round, and reactive to light. EOMI. There is no scleral icterus. NECK: C-spine is soft and supple, there is no meningismus. There is no cervical lymphadenopathy. LUNGS: Coarse breath sounds auscultated bilaterally with diffuse rales HEART: Regular rate and rhythm, no murmurs, clicks, rubs or gallops. ABDOMEN: Soft, non-tender, non-distended. There are bowel sounds in all four quadrants. No rebound or guarding. EXTREMITIES: 2+ pitting edema in the bilateral lower extremities NEUROLOGICAL: The patient moves all four extremities with 5/5 strength. Cranial nerves II - XII are intact. Normal gait. Alert and oriented SKIN: There is no apparent rash or petechiae. HEME/LYMPHATIC: There is no evidence of excessive bruising or lymphedema. PSYCHIATRIC: The patient does not appear anxious or depressed. Result Diagram: 03/13/17212903/13/172129 Results 24 hrs Laboratory Tests Test 03/13/17 21:30 White Blood Count 7.110^3/ul Red Blood Count 3.0210^6/ul Hemoglobin 9.4g/dl Hematocrit 29.5% Mean Corpuscular Volume 97.7fl Mean Corpuscular Hemoglobin 31.1pg Mean Corpuscular Hemoglobin Concent 31.9g/dl Red Cell Distribution Width 16.3% Platelet Count 37621^3/UL Mean Platelet Volume 11.8fl Neutrophils % 66.0% Lymphocytes % 19.9% Monocytes % 11.1% Eosinophils % 1.4% Basophils % 0.6% Nucleated Red Blood Cells % 0.0/100WBC Neutrophils # 4.710^3/ul Lymphocytes # 1.410^3/ul Monocytes # 0.810^3/ul Eosinophils # 0.110^3/ul Basophils # 0.010^3/ul Nucleated Red Blood Cells # 0.010^3/ul Prothrombin Time 15.9Sec Prothrombin Time Ratio 1.2 INR International Normalized Ratio 1.26 Activated Partial Thromboplast Time 37.4Sec Sodium Level 136mmol/L Potassium Level 4.2mmol/L Chloride Level 96mmol/L Carbon Dioxide Level 28mmol/L Anion Gap 16 Blood Urea Nitrogen 89mg/dl Creatinine 2.54mg/dl Glucose Level 128mg/dl Calcium Level 8.8mg/dl Troponin I 0.013ng/ml B-Type Natriuretic Peptide 12457TE/ML Current Medications Medications (Trade) Dose Ordered Sig/[place] Route PRN Reason Start Time Stop Time Status Last Admin Dose Admin Furosemide (Lasix) 40 mg ONCE ONCE IV 03/13/17 23:30 03/13/17 23:31 Procedures/MDM EKG: Rate/Rhythm: [Normal Sinus Rhythm] QRS, ST, T-waves: [No changes consistent w/ acute ischemia] Impression: [No evidence of ischemia or arrhythmia] EKG: #2 Rate/Rhythm: [Normal Sinus Rhythm] QRS, ST, T-waves: [No changes consistent w/ acute ischemia] Impression: [No evidence of ischemia or arrhythmia] Chest X-ray 1V Interpreted by me: Soft Tissue: Pulmonary edema with bilateral pleural effusions Bones: No acute abnormalities Mediastinum/Cardiac Silhouette/Lungs: [No acute abnormalities] This 66-year-old male presents to the ER for evaluation of shortness of breath. When I evaluated him he did have coarse breath sounds bilaterally. He was not hypoxic, but did have 2+ pitting edema as well. This patient was admitted last month for acute CHF exacerbation and did have acute renal failure as well. Today his creatinine is slightly more elevated than his baseline. His potassium is within normal limits. He is in no respiratory distress however given his symptoms and x-ray findings the patient will be admitted at this time for diuresis. He was given 40 mg of Lasix in the emergency room. Chest x-ray does reveal a possible infiltrates, however this patient has had no fever or chills and no leukocytosis. I feel that this patient x-ray finding is consistent with pleural effusion secondary to acute on chronic CHF Departure Diagnosis: Primary Impression: Acute decompensated heart failure Additional Impressions: [id number] kidney injury Normocytic anemia Shortness of breath Condition: Stable HASEEB BORJAS DO Mar 13, 2017 23:33
--- NOTE | 2017-03-13 23:49 | HP ---
Date/Time of Note Date/Time of Note DATE: 03/13/17 TIME: 23:45 Assessment/Plan VTE Prophylaxis VTE Prophylaxis Intervention: other (Eloquis) Lines/Catheters IV Catheter Type (from [facility]): Saline Lock Assessment/Plan Assessment/Plan 1) Acute on Chronic Diastolic Heart Failure with elevated BNP = 13,500 - Admit to Med-Surg for Diuresis and Monitoring - AM Labs: CBC, BMP - CONSULT: Cardiology 2) Acute on Chronic Kidney Injury, BUN/Cr = 89/2.54 - CONSULT: Nephrology - Dr. Savage 3) Anemia, Normochromic, Normocytic, Hgb = 9.4, stable, likely Anemia of Chronic Disease 4) Diabetes Mellitus, Type 2 - Renal, Diabetic Diet with low Sodium - Accu Chek AC and HS - Mild Insulin Sliding Scale HPI/ROS Admit Date/Time Admit Date/Time 03/13/17 2329 Hx of Present Illness This is a 66-year-old male who presents to the emergency room for evaluation of cough, shortness of breath and bilateral lower extremity swelling for the past 48 hours. This patient states that he was at his inseamer's office, Dr. Macias who sent the patient in for evaluation of CHF. This patient states that he was admitted in the hospital last month for the same. He is on diuretics, but states that his symptoms are not improving. He has not been sick and he has not missed any doses of medications. Apparently though, he has been urinating a lot less the past 2 days. Improved now that is being treated in the ED. Records reviewed. This is patient's 3rd admission this year for CHF, and the second with Acute on Chronic Kidney Disease, and Dr. Savage consulted on him last month, mentioning that he has a history of "CKD stage IIIB/IV, with a baseline creatinine 1.62 mg/dL. Etiology is secondary to cardiorenal syndrome" . Also, the results of his Echo from late last year is listed: Echocardiogram from 10/2016 Normal left ventricular cavity size. Normal left ventricular wall thickness. Moderate left ventricular systolic dysfunction. Ejection fraction is visually estimated at 35 %. Tissue Doppler/Mitral Doppler indices are consistent with restrictive physiology with markedly elevated left atrial pressure (Stage III-IV diastolic dysfunction) ER Course per ER Physician: "This 66-year-old male presents to the ER for evaluation of shortness of breath. When I evaluated him he did have coarse breath sounds bilaterally. He was not hypoxic, but did have 2+ pitting edema as well. This patient was admitted last month for acute CHF exacerbation and did have acute renal failure as well. Today his creatinine is slightly more elevated than his baseline. His potassium is within normal limits. He is in no respiratory distress however given his symptoms and x-ray findings the patient will be admitted at this time for diuresis. He was given 40 mg of Lasix in the emergency room. Chest x-ray does reveal a possible infiltrates, however this patient has had no fever or chills and no leukocytosis. I feel that this patient x-ray finding is consistent with pleural effusion secondary to acute on chronic CHF" ROS General: Admits: Denies: Fever, Chills, Poor Appetite, Generalized Body Aches Eyes: Admits: Denies: Blurry Vision, Double Vision HENT: Admits: Denies: Ear Pain/Pressure, Runny/Stuffy Nose, Sore Throat Cardiovascular: Admits: Leg Swelling, Bilateral Denies: Chest Pain, Palpitations Pulmonary: Admits: Cough, Shortness of Breath, cannot breathe if he lies flat Denies: Wheeze Gastrointestinal: Admits: Denies: Abdominal Pain, Nausea, Vomiting, Diarrhea, Blood in Stool, Black-Colored Stool Urogenital: Admits: Decreased Urinary Frequency and amount x 2 days Denies: Burning with Urination, Urinary Frequency, Blood in Urine Musculoskeletal: Admits: Denies: Joint Pain, Joint Swelling, Muscle Pain Neurological: Admits: Denies: Headache, Dizziness, Numbness, Tingling, Shooting Pains Integumentary: Admits: Denies: Rash, Itch PMH/Family/Social Past Medical History COPD; Afib; CHF; HTN; CKD; decompensated liver cirrhosis; DM; COLON CA, cardiorenal syndrome Past Surgical History COLON RESECTION R/T COLON CA Past Surgical Hx: endoscopy Social History Smoking Status: Never smoker Exam/Review of Systems Vital Signs Vitals Vital Signs Date Time Temp Pulse Resp B/P Pulse Ox O2 Delivery O2 Flow Rate FiO2 03/13/17 22:17 Nasal Cannula 2 03/13/17 20:15 98.7 69 20 111/62 100 Exam Exam General: Frail, elderly Danish-Speaking male, alert and in no acute distress. Eyes: Sclera White HENT: Normocephalic/Atraumatic, External Ears/Nose Normal, Moist Mucus Membranes Neck: Supple, Trachea Midline Cardiovascular: Normal Rate, Regular Rhythm, Normal S1 and S2, No Murmur, No Extra Sounds. Radial pulse +2/4. Bilateral Pedal Edema, 1+ to upper 1/3 of leg Pulmonary: Clear to Auscultation Bilateral upper lung davidson. Decreased air flow in right lower lung davidson. Normal Respiratory Effort, No Rales, Rhonchi or Wheezes Gastrointestinal: Normoactive Bowel Sounds, Soft, Non-Tender/Non-Distended, No Hepatosplenomegaly Appreciated, No Pulsatile Masses Urogenital: Deferred Musculoskeletal: Normal Muscle Bulk and Tone Neurological: CN II - XII Grossly Intact, Non-Focal, Speech Normal Integumentary: Normal Moisture and Temperature, Good Turgor, No Jaundice, No Rash Lymphatic: No Cervical Lymphadenopathy Psychiatric: Appropriate Mood and Affect, Good Eye Contact Labs Result Diagram: 03/13/17212903/13/172129 Medications Medications Home Meds Active Scripts Pantoprazole* (Pantoprazole*) 40 Mg Tablet.dr, 40 MG PO BID@,18 for 30 Days Prov:ANDIE ISIDRO 01/14/17 Ferrous Sulfate* (Ferrous Sulfate*) 325 Mg Tabec, 325 MG PO TID for 30 Days, TAB Prov:ANDIE ISIDRO 01/14/17 Carvedilol* (Carvedilol*) 3.125 Mg Tablet, 1.5625 MG PO BID for 30 Days, TAB Prov:ANDIE ISIDRO 01/14/17 Bumetanide* (Bumetanide*) 1 Mg Tablet, 1 MG PO BID for 30 Days, TAB Prov:ANDIE ISIDRO 01/14/17 Amiodarone Hcl* (Amiodarone Hcl*) 200 Mg Tablet, 100 MG PO DAILY for 30 Days, TAB Prov:ANDIE ISIDRO 01/14/17 Reported Medications Metoclopramide Hcl* (Metoclopramide Hcl*) 10 Mg Tablet, 10 MG PO TID, TAB 03/13/17 Isosorbide Mononitrate* (Isosorbide Mononitrate*) 30 Mg Tab.er.24h, 30 MG PO DAILY, TAB 01/07/17 Apixaban* (Eliquis*) 2.5 Mg Tablet, 2.5 MG PO BID, TAB 01/07/17 Allopurinol* (Allopurinol*) 300 Mg Tablet, 300 MG PO DAILY, TAB 01/07/17 Atorvastatin* (Atorvastatin*) 40 Mg Tablet, 40 MG PO HS, TAB 09/07/14 Current Medications Medications (Trade) Dose Ordered Sig/[place] Route PRN Reason Start Time Stop Time Status Last Admin Dose Admin Furosemide (Lasix) 40 mg ONCE ONCE IV 03/13/17 23:30 03/13/17 23:31 Procedures Procedures Laboratory Tests Test 03/13/17 21:30 White Blood Count 7.110^3/ul Red Blood Count 3.0210^6/ul Hemoglobin 9.4g/dl Hematocrit 29.5% Mean Corpuscular Volume 97.7fl Mean Corpuscular Hemoglobin 31.1pg Mean Corpuscular Hemoglobin Concent 31.9g/dl Red Cell Distribution Width 16.3% Platelet Count 25147^3/UL Mean Platelet Volume 11.8fl Neutrophils % 66.0% Lymphocytes % 19.9% Monocytes % 11.1% Eosinophils % 1.4% Basophils % 0.6% Nucleated Red Blood Cells % 0.0/100WBC Neutrophils # 4.710^3/ul Lymphocytes # 1.410^3/ul Monocytes # 0.810^3/ul Eosinophils # 0.110^3/ul Basophils # 0.010^3/ul Nucleated Red Blood Cells # 0.010^3/ul Prothrombin Time 15.9Sec Prothrombin Time Ratio 1.2 INR International Normalized Ratio 1.26 Activated Partial Thromboplast Time 37.4Sec Sodium Level 136mmol/L Potassium Level 4.2mmol/L Chloride Level 96mmol/L Carbon Dioxide Level 28mmol/L Anion Gap 16 Blood Urea Nitrogen 89mg/dl Creatinine 2.54mg/dl Glucose Level 128mg/dl Calcium Level 8.8mg/dl Troponin I 0.013ng/ml B-Type Natriuretic Peptide [id number]/ML Current Medications PROCEDURE: Portable chest x-ray. CLINICAL INDICATION: Chest pain. TECHNIQUE: Portable AP view of the chest. COMPARISON: 02/18/2017. IMPRESSION: 1. Pulmonary edema, improved since the prior examination. 2. No significant change in small bilateral pleural effusions and patchy bibasilar opacities, possibly representing atelectasis or pneumonia. 3. Enlarged cardiac silhouette and aortic atherosclerosis. DANETTE ISSA DO Mar 13, 2017 23:49 CLINICAL INDICATION: Chest pain. TECHNIQUE: Portable AP view of the chest. COMPARISON: 02/18/2017.
[2017-03-14] MEDS ORDERED: NITROGLYCERIN (SL) 0.4 MG TAB SL PRN
[2017-03-14] MEDS ORDERED: METOCLOPRAMIDE 10 MG INJ IV PRN
[2017-03-14] MEDS ORDERED: LORAZEPAM 2 MG INJ IV PRN
[2017-03-14] MEDS ORDERED: NACL 0.9% 3 ML SYG IV SCH
[2017-03-14] MEDS ORDERED: GLUCOSE GEL 15 GRAM TUBE PO PRN ×2 (00:17)
[2017-03-14] MEDS ORDERED: DEXTROSE 50% 50 ML SYRINGE IV PRN ×2 (00:17)
[2017-03-14] MEDS ORDERED: GLUCAGON 1 MG INJ IM PRN (00:17)
[2017-03-14] MEDS ORDERED: GLUCOSE GEL 15 GRAM TUBE BUCCAL PRN (00:17)
[2017-03-14] MEDS: INSULIN ASPART [NOVOLOG] 3 ML PEN SC SCH ×5 (03:00→21:00)
[2017-03-14 05:46] LABS: ADD SCAN DIFF NO
[2017-03-14 05:52] LABS: BASOPHILS % 0.6 % (0.0-2.0); EOSINOPHILS # 0.1 10^3/ul (0.0-0.5); EOSINOPHILS % 1.7 % (0.0-7.0); HEMATOCRIT 26.6 % (42.0-52.0); HEMOGLOBIN 8.5 g/dl (14.0-18.0); LYMPHOCYTES # 1.7 10^3/ul (0.8-2.9); LYMPHOCYTES % 27.1 % (15.0-51.0); MEAN CORPUSCULAR HEMOGLOBIN 30.6 pg (29.0-33.0); MEAN CORPUSCULAR VOLUME 95.7 fl (82.0-101.0); MEAN PLATELET VOLUME 11.3 fl (7.4-10.4); MONOCYTE # 0.7 10^3/ul (0.3-0.9); MONOCYTES % 11.1 % (0.0-11.0); NEUTROPHIL # 3.7 10^3/ul (1.6-7.5); NEUTROPHILS % 58.9 % (39.0-77.0); PLATELET COUNT 214 10^3/UL (140-415); RED BLOOD COUNT 2.78 10^6/ul (4.70-6.10); RED CELL DISTRIBUTION WIDTH 16.3 % (11.5-14.5); WHITE BLOOD COUNT 6.3 10^3/ul (4.8-10.8)
[2017-03-14] MEDS ORDERED: FUROSEMIDE 20 MG INJ IV SCH (06:00)
[2017-03-14] MEDS: BUMETANIDE 1 MG TAB PO SCH ×2 (06:01→13:43)
[2017-03-14 06:09] LABS: POTASSIUM 3.3 mmol/L (3.5-5.1)
[2017-03-14 06:12] LABS: CREATININE 2.17 mg/dl (0.61-1.24)
[2017-03-14 06:13] LABS: CALCIUM 8.6 mg/dl (8.4-10.2); CHOL/HDL RATIO 3.2 RATIO
[2017-03-14 06:19] LABS: CK-MB 0.28 ng/ml (0.0-2.4)
[2017-03-14 06:22] LABS: TROPONIN-I 0.018 ng/ml (0.00-0.12)
[2017-03-14] MEDS: AMIODARONE 200 MG TAB PO SCH (08:29)
[2017-03-14] MEDS: FERROUS SULFATE (EC) 325 MG TAB PO SCH ×3 (08:31→21:15)
[2017-03-14] MEDS: ALLOPURINOL 300 MG TAB PO SCH (08:32)
[2017-03-14] MEDS: ISOSORBIDE MONONITRATE(SR)30 MG TAB PO SCH (08:32)
[2017-03-14] MEDS: FAMOTIDINE 20 MG TAB PO SCH (08:40)
[2017-03-14] MEDS ORDERED: POTASSIUM CHLORIDE (SR) 20 MEQ TAB PO STA (09:25)
--- NOTE | 2017-03-14 09:53 | RADRPT ---
PROCEDURE: US bilateral chest. CLINICAL INDICATION: Pleural effusion TECHNIQUE: Multiple real-time images were acquired of the patient's chest utilizing a high resolut ion transducer. COMPARISON: Recent x-ray FINDINGS: There are large bilateral pleural effusions. IMPRESSION: Large bilateral pleural effusions. RPTAT: AA .Beto Mccarty MD, MD Date Time Electronically viewed and signed by .Beto Mccarty MD, on 03/14/2017 09:52 .S/
--- NOTE | 2017-03-14 10:24 | CONS ---
DATE OF ADMISSION: 03/13/2017 DATE OF CONSULTATION: 03/14/2017 TYPE OF CONSULTATION: Cardiology. REASON FOR CONSULTATION: Congestive heart failure, cardiomyopathy. CHIEF COMPLAINT: Shortness of breath. HISTORY OF PRESENT ILLNESS: Thank you for this referral. History was obtained from the patient and review of the old chart. The patient also very known to me from previous admission to hospital ___ _. This is an unfortunate 66-year-old gentleman with history of severe cardiomyopathy, coronary art nahid disease, ____ history of percutaneous coronary intervention, history of paroxysmal atrial fibril lation, marked sinus bradycardia to sinus syndrome, liver disease who has had recurrent admissions t o the hospital for congestive heart failure. The patient was seen in my office yesterday and was no hermelindo to have increasing shortness of breath and lower extremity edema consistent with congestive hear t failure exacerbation. Patient advised to come to the emergency room for further workup and admis jessica. The patient is being admitted. The patient has said that he is compliant with his medication . But review of the old chart, the patient had multiple admissions to the hospital for similar reas ons, after diuretics he actually has significantly improved. PAST MEDICAL HISTORY: History of cardiomyopathy, probably combination of ischemia nonischemic, ejec tion fraction has been about 35%, history of coronary artery disease, status post PCI, history of pa roxysmal atrial fibrillation, status post cardioversion previously, history of chronic kidney diseas e, possibly liver cirrhosis, history of gastric cancer, currently stable. SURGICAL HISTORY: As above. SOCIAL HISTORY: The patient has smoked and drank in the past; however, stopped doing it now. ALLERGIES: NO REPORTED ALLERGIES. MEDICATIONS: As per medication reconciliation, personally reviewed. REVIEW OF SYSTEMS: Otherwise negative except for above-mentioned. FAMILY HISTORY: No reported coronary artery disease. PHYSICAL EXAMINATION: VITAL SIGNS: Temperature 98.3, heart rate of 60, blood pressure of 108/62, respiratory rate of 24. HEENT: Normocephalic, atraumatic. CARDIOVASCULAR: Regular rate and rhythm, systolic murmur. PULMONARY: With rhonchi at the right base. GASTROINTESTINAL: Soft, nontender. EXTREMITIES: Positive bilateral lower extremity edema. NEUROLOGIC: Awake and alert. PSYCHIATRIC: Appears to be calm and pleasant. LABORATORY: WBC of 6.3, hemoglobin 8.5, platelets of 214. Sodium 138, potassium 3.3, BUN of 86, cr eatinine of 2.17, creatinine was 2.54 on admission, last admission on February 19 was down to 1.53. Gl ucose 88. Hemoglobin A1c of 6.2. Chest x-ray was personally reviewed, which shows pulmonary edema with pleural effusion. ASSESSMENT AND PLAN: 1. Congestive heart failure exacerbation. 2. Severe cardiomyopathy. 3. History of paroxysmal atrial fibrillation. 4. Pleural effusion. 5. Ascites. 6. Lower extremity edema. 7. Hyperkalemia 8. History of hypertension. RECOMMENDATIONS: I will continue with the very low dose amiodarone to keep him in sinus. Low dose beta cecilia as tolerated, will be continued. Bumex will be continued and IV Lasix has been added. I will also add Aldactone. Diabetic control as per internal medicine. We will hold off on anticoa gulation with Eliquis for now and monitor. Type and screen will be done. We will try to optimize f rom a medical standpoint and get an ultrasound of his chest and if indicated thoracentesis may be co nsidered. Transfusion may be considered as well. I have the patient scheduled for biventricular IC D placement on Saturday. We will try to optimize prior to that date for now. Will continue to monitor closely. I's and O's will be checked. This repeat echocardiogram will be checked as well. Dictated By: COLIN MANJARREZ/LANG Conf#: [id number] DID#: [id number]
--- NOTE | 2017-03-14 11:02 | CONS ---
DATE OF ADMISSION: 03/13/2017 DATE OF CONSULTATION: TYPE OF CONSULTATION: Nephrology. REASON FOR CONSULTATION: Acute kidney injury and volume overload. REQUESTING PHYSICIAN: Dr. Macias HISTORY OF PRESENT ILLNESS: This is a 66-year-old male with a past medical history of chronic kidne y disease stage IIIB/IV, with a baseline creatinine around 1.6 to 2 mg/dL. Etiology is secondary to cardiorenal syndrome and diabetes. The patient also has a history of cardiomyopathy with an ejecti on fraction of 35%, a history of atrial fibrillation, dyslipidemia, diabetes, a previous history of colon cancer and gastric cancer, who has had multiple admissions to [facility] for decompensated heart failure. The patient was recently admitted in the last month for acute CHF exa cerbation. The patient was diuresed and discharged home. The patient now presents back to [facility] after seeing his supervising librarian, Dr. Macias, and was noted to be in decompensated heart failure. Upon arrival to the emergency room the patient had a chest x-ray which showed findi ngs of pulmonary edema and bilateral pleural effusions. The patient had an ultrasound of the chest which shows large bilateral pleural effusions. In the emergency room the patient was given diuretic therapy. Upon my evaluation, the patient at this time is currently tachypneic, but denies any chest pain, mckenzie sea or vomiting. No dysuria, hematuria or hematochezia. The patient's renal function on admission w as 2.54 mg/dL, which has improved with gentle diuresis to 0.17 mg/dL. No other events noted. PAST MEDICAL HISTORY: As stated above. A history of CHF, CKD stage IV, diabetes, hypertension, atr ial fibrillation, a history of colon cancer. PAST SURGICAL HISTORY: Previous history of colon and gastric surgery. SOCIAL HISTORY: He does not drink, smoke or do drugs. FAMILY HISTORY: Noncontributory. MEDICATIONS: Have been reviewed. ALLERGIES: NO KNOWN DRUG ALLERGIES. REVIEW OF SYSTEMS: A 14-point review of systems was conducted. Pertinent positives as stated in th e HPI, otherwise negative. PHYSICAL EXAMINATION: VITAL SIGNS: Blood pressure is 135/76, respirations 16, pulse 78, temperature 98.2. HEENT: Head is normocephalic. Pupils are reactive to light. NECK: Supple. HEART: Regularly irregular. LUNGS: Showed diminished breath sounds at the base bilaterally. ABDOMEN: Soft, nontender to palpation. No rebound or guarding. EXTREMITIES: Negative for clubbing or cyanosis, +2 edema. DERMATOLOGIC: No rashes. MUSCULOSKELETAL: Have no joint effusion. NEUROLOGIC: No focal deficits. LABORATORY DATA: Shows a white count of 6.3, hemoglobin 8.5, hematocrit of 26.6, platelet count of 214. Sodium 138, potassium 3.3, BUN , creatinine 2.17. Hemoglobin A1c 6.2. ASSESSMENT AND PLAN: 1. Nonoliguric acute kidney injury on top of chronic kidney disease stage IIIB/IV, with a previous baseline creatinine around 1.5 to 2 mg/dL. Etiology of acute kidney injury is secondary to cardiore nal syndrome. The possibility of acute glomerulonephritis, vasculitis or interstitial nephritis is less likely, given the patient's clinical presentation. Plan at this point is to check a urinalysis with microanalysis. Will evaluate the urine under microscopy. Will check urine electrolytes, calc ulate a fractional secretion of urine. Would otherwise continue supportive care. Will change diure tics from oral to IV Bumex 1 mg b.i.d. Will monitor strict I's and O's. Monitor renal function ronaldo sely. Otherwise continue supportive care and renally dose all meds. Also will monitor electrolytes closely. 2. Hypokalemia secondary to diuretic therapy. Plan is to replete with potassium chloride. Monitor electrolytes closely. 3. Mineral bone disorder. Will monitor calcium and phosphorus levels. 4. Acute congestive heart failure exacerbation. Underlying precipitating event is unclear. Questi onable acute coronary syndrome versus medical noncompliance. Plan is to continue the current medica l management, continue diuretic therapy, monitor strict I's and O's, follow up with cardiology recom mendations. 5. Atrial fibrillation. Currently in sinus rhythm. Continue medical management. 6. Pulmonary hypertension. Will continue to monitor. 7. Hypokalemia. Replete potassium chloride. 8. Bilateral pleural effusions. Consider a thoracentesis. Underlying cause is likely due to CHF. 9. Diabetes. Continue Accu-Cheks and insulin sliding scale. 10. History of colon cancer. Thank you, Dr. Macias, for this interesting consult. It will be a pleasure to follow up the patient with you throughout his hospital course. Dictated By: ANIL PERALES/LANG Conf#: [id number] [facility]#: [id number]
[2017-03-14 11:03] LABS: TROPONIN-I 0.014 ng/ml (0.00-0.12)
[2017-03-14 11:09] LABS: CK-MB 0.3 ng/ml (0.0-2.4)
[2017-03-14] MEDS: SPIRONOLACTONE 25 MG TAB PO SCH (13:43)
[2017-03-14 14:30] VITALS: TEMP 98.3
[2017-03-14 15:51] VITALS: BP 106/60; PULSE 59; RESP 16
[2017-03-14 16:01] VITALS: PULSE 57
[2017-03-14 16:07] VITALS: Ht 177.8 cm; Wt 60.6 kg
[2017-03-14 20:00] VITALS: BP 102/62; PULSE 60; RESP 20
[2017-03-14 20:19] VITALS: PULSE 58
[2017-03-14] MEDS ORDERED: ATORVASTATIN 40 MG TAB PO SCH (21:00)
[2017-03-14] MEDS: ATORVASTATIN 10 MG TAB PO SCH (21:10)
--- NOTE | 2017-03-14 21:33 | PN ---
DATE: 03/14/2017 SUBJECTIVE: The patient was seen by renal and cardiology teams, no present nausea or vomiting. OBJECTIVE VITAL SIGNS: Stable. GENERAL: The patient is lying in bed, family members at the bedside. No acute distress. HEENT: Pupils equal, round, react to light. Extraocular muscles intact. NECK: Supple, no thyromegaly. LUNGS: Mild rhonchi at the right base, otherwise clear. CARDIOVASCULAR: S1, S2 heard. No rubs or gallops. ABDOMEN: Soft, nontender, nondistended. Normal bowel sounds. No rebound or guarding. MUSCULOSKELETAL: 1+ pitting edema bilateral lower extremities to the ankles. NEUROLOGIC: No focal deficits. LABORATORY DATA: Sodium 138, potassium 3.3, chloride 100, CO2 of 26, BUN 86, creatinine 2.17, gluco se 88. BNP was 13,500; that was yesterday. Today's CBC: WBC 6.3, hemoglobin 8.5, hematocrit 26.6, platelets 214. IMAGING: Ultrasound of the chest shows large bilateral pleural effusions. ASSESSMENT AND PLAN: A 66-year-old gentleman with history of severe cardiomyopathy, coronary artery disease, paroxysmal atrial fibrillation, who presents with shortness of breath and cough for 48 phyllis rs with signs of congestive heart failure exacerbation. 1. Congestive heart failure. Again, follow cardiology recommendations. Admitted to telemetry floo r. Continue current medications including Bumex, low-dose spironolactone, amiodarone, low-dose Core g, Imdur, monitor ins and outs and breathing symptoms as well. 2. History of severe cardiomyopathy. Again, see #1. Continue current medications. Follow up card iology recommendations. Per cardiology recommendations, the patient may be scheduled for ICD placem ent in the next few days. 3. Pleural effusion. Again, consider thoracentesis given the chest ultrasound findings. 4. Hypertension. Again, see #1. 5. Renal insufficiency. Again, the patient has history of chronic kidney disease. Follow up renal recommendations. Continue monitoring BUN and creatinine levels. Renal insufficiency, thought to b e secondary to cardiorenal syndrome. Monitor urine electrolytes. Follow up renal recommendations a s mentioned above. Continue IV Bumex. 6. Diabetes type 2. Continue sliding scale insulin. 7. Gastrointestinal prophylaxis. Pepcid. 8. Deep venous thrombosis prophylaxis, add SCDs. Consider PT consult as well. Dictated By: ANA MARÍA HUGHES Conf#: [id number] DID#: [id number]
[2017-03-14] MEDS: BUMETANIDE 1 MG INJ IV SCH ×2 (21:58→21:59)
[2017-03-15] VITALS (13 sets, daily range): BP systolic 99–144; BP diastolic 57–79; PULSE 59–64; RESP 17–20
[2017-03-15] MEDS: INSULIN ASPART [NOVOLOG] 3 ML PEN SC SCH ×6 (01:13→20:53)
[2017-03-15] MEDS: ALLOPURINOL 300 MG TAB PO SCH (09:03)
[2017-03-15] MEDS: FAMOTIDINE 20 MG TAB PO SCH (09:03)
[2017-03-15] MEDS: FERROUS SULFATE (EC) 325 MG TAB PO SCH ×3 (09:03→20:34)
[2017-03-15] MEDS: AMIODARONE 200 MG TAB PO SCH (09:04)
[2017-03-15] MEDS: ISOSORBIDE MONONITRATE(SR)30 MG TAB PO SCH (09:04)
[2017-03-15] MEDS: BUMETANIDE 1 MG INJ IV SCH ×2 (09:05→20:33)
[2017-03-15] MEDS: SPIRONOLACTONE 25 MG TAB PO SCH (09:05)
--- NOTE | 2017-03-15 10:08 | PN ---
DATE: 03/15/2017 SUBJECTIVE: The patient clinically improved, currently on room air. Shortness of breath is improvi ng. No other events noted. OBJECTIVE: VITAL SIGNS: Blood pressure 109/68, respirations 18, pulse 61, temperature 98.3. HEENT: Head is normocephalic. NECK: Supple. HEART: Regular rate. LUNGS: Show diminished breath sounds at the bases. ABDOMEN: Soft, nontender. No rebound or guarding. EXTREMITIES: Negative for clubbing, cyanosis. Positive edema. DERMATOLOGIC: No rashes. MUSCULOSKELETAL: No joint effusions. NEUROLOGIC: No change in exam. MEDICATIONS: The patient's medications have been reviewed. LABORATORY DATA: Currently pending. ASSESSMENT AND PLAN: 1. Nonoliguric acute kidney injury on top of chronic kidney disease stage IIIB/IV with previous bas michelle creatinine around 1.5 to 2 mg/dL. Etiology of current acute kidney injury is secondary to car diorenal syndrome. The patient's renal function has been improving with diuretic therapy. Renal pa jeromy for this morning is currently pending. Plan at this point is to continue current treatment plan . Continue current diuretic regimen. We will follow up renal panel. We will follow up urine elect rolytes. We will continue to monitor closely. 2. Hypokalemia secondary to diuretic therapy. We will continue to monitor and replace his potassiu m chloride as needed. 3. Mineral bone disorder. Continue to monitor calcium and phosphorus levels. 4. Acute congestive heart failure exacerbation. The patient is clinically improving. Continue cur rent diuretic regimen. Monitor I's and O's closely. Follow up with cardiology. 5. Paroxysmal atrial fibrillation, currently in sinus rhythm. Continue medical management. 6. Pulmonary hypertension. Continue to monitor. 7. Bilateral pleural effusions. Continue to treat underlying congestive heart failure with diureti c therapy. Consider thoracentesis. 8. Diabetes. Continue Accu-Cheks and insulin sliding scale. 9. History of colon cancer. Dictated By: ANIL PERALES/LANG Conf#: [id number] DID#: [id number]
[2017-03-15 10:34] LABS: ADD SCAN DIFF NO
[2017-03-15 11:00] LABS: ALBUMIN 3.5 g/dl (3.3-4.9); ALBUMIN/GLOBULIN RATIO 0.85; BILIRUBIN,INDIRECT 0.4 mg/dl (0-1.1); BILIRUBIN,TOTAL 0.4 mg/dl (0.2-1.3); CHOL/HDL RATIO 4.5 RATIO; CREATININE 1.91 mg/dl (0.61-1.24); IRON 56 ug/dl (35-150); MAGNESIUM 2.2 mg/dl (1.7-2.5); POTASSIUM 3.9 mmol/L (3.5-5.1); TOTAL PROTEIN 7.6 g/dl (6.1-8.1)
[2017-03-15 11:01] LABS: BASOPHILS % 0.6 % (0.0-2.0); EOSINOPHILS # 0.1 10^3/ul (0.0-0.5); EOSINOPHILS % 1.6 % (0.0-7.0); HEMATOCRIT 27.3 % (42.0-52.0); HEMOGLOBIN 8.7 g/dl (14.0-18.0); LYMPHOCYTES # 1.2 10^3/ul (0.8-2.9); LYMPHOCYTES % 18.7 % (15.0-51.0); MEAN CORPUSCULAR HEMOGLOBIN 31.6 pg (29.0-33.0); MEAN CORPUSCULAR HGB CONC 31.9 g/dl (32.0-37.0); MEAN CORPUSCULAR VOLUME 99.3 fl (82.0-101.0); MEAN PLATELET VOLUME 11.8 fl (7.4-10.4); MONOCYTE # 0.7 10^3/ul (0.3-0.9); MONOCYTES % 10.5 % (0.0-11.0); NEUTROPHIL # 4.2 10^3/ul (1.6-7.5); NEUTROPHILS % 67.8 % (39.0-77.0); PLATELET COUNT 232 10^3/UL (140-415); RED BLOOD COUNT 2.75 10^6/ul (4.70-6.10); RED CELL DISTRIBUTION WIDTH 16.2 % (11.5-14.5); WHITE BLOOD COUNT 6.2 10^3/ul (4.8-10.8)
[2017-03-15 11:07] LABS: INR 1.23; PROTIME 15.6 Sec (12.2-14.2); PT RATIO 1.2
[2017-03-15 11:10] LABS: TOTAL IRON BINDING CAPACITY 290 ug/dl (241-421)
[2017-03-15 11:31] LABS: THYROID STIMULATING HORMONE 3.5 MIU/L (0.465-4.680)
--- NOTE | 2017-03-15 12:59 | RADRPT ---
Echocardiogram Report Patient Name: EFREN HEAD Gender: Male Date: 1950 Study Date: 14-Mar-2017 Sample Tailor: Myla Alston [facility] Location: 6 Ref. Physician: COLIN MACIAS Quality: Good Procedures: Transthoracic echocardiogram with complete 2D, M-Mode, and doppler examination. Indications: Cardiomyopathy. Congestive Heart Failure. 2D/M Mode Doppler Measurement Value Normal Ranges Measurement Value Normal Ranges LVIDd 2D 4.4 3.5 - 5.6 cm AV Peak Jairo 1.6 m/sec LVIDs 2D 3.8 2.1 - 4.1 cm AV Peak PG 10.1 mmHg LVPWd 2D 0.7 0.6 - 1.1 cm LVOT Peak Jairo 0.9 m/sec IVSd 2D 0.9 0.6 - 1.1 cm LVOT Peak PG 3.5 mmHg AoR Diam 2D 3.0 2.0 - 3.7 cm TR Peak Jairo 2.5 m/sec EDV 2D 85.8 cm3 TR Peak PG 25.8 mmHg ESV 2D 54.2 cm3 RVSP 34.0 mmHg LA Dimen 2D 4.1 2.3 - 4.0 cm Findings Left Ventricle: Normal left ventricular cavity size. Normal left ventricular wall thickness. Moderate left ventricular systolic dysfunction. Ejection fraction is visually estimated at 3035 %. Tissue Doppler/Mitral Doppler indices are consistent with restrictive physiology with markedly elevated left atrial pressure (Stage IIIIV diastolic dysfunction). There is global hypokinesis involving all segments of the left ventricle. Right Ventricle: Normal right ventricular size. Moderate right ventricular systolic dysfunction. Left Atrium: There is mild enlargement of left atrium. Right Atrium: There is moderate enlargement of right atrium. Mitral Valve: Mitral valve leaflets appear mildly thickened. Mild mitral annular calcification. Mild mitral valve regurgitation. Aortic Valve: No significant aortic stenosis or insufficiency. Aortic cusps appear mildly calcified. Tricuspid Valve: Normal appearance of the tricuspid valve. Estimated peak PA systolic pressure 58 mmHg. There is moderate tricuspid regurgitation. Pulmonic Valve: Pulmonic valve not well visualized. Pericardium: Small pericardial effusion. Pleural effusion seen. Aorta: Normal aortic root. IVC: Dilated IVC without respiratory collapse consistent with elevated right atrial pressure. Conclusions 1.Normal left ventricular cavity size. Normal left ventricular wall thickness. Moderate left ventricular systolic dysfunction. Ejection fraction is visually estimated at 30-35 %. Tissue Doppler/Mitral Doppler indices are consistent with restrictive physiology with markedly elevated left atrial pressure (Stage III-IV diastolic dysfunction). There is global hypokinesis involving all segments of the left ventricle. 2.There is mild enlargement of left atrium. 3.Mitral valve leaflets appear mildly thickened. Mild mitral annular calcification. Mild mitral valve regurgitation. 4.No significant aortic stenosis or insufficiency. Aortic cusps appear mildly calcified. 5.Normal appearance of the tricuspid valve. Estimated peak PA systolic pressure 58 mmHg. There is moderate tricuspid regurgitation. 6.Small pericardial effusion. Pleural effusion seen. 7.Dilated IVC without respiratory collapse consistent with elevated right atrial pressure. Electronically Signed By: Colin Macias 15-Mar-2017 12:58:29 -0700 Patient Name: EFREN HEAD Study Date: 14-Mar-2017 [id number]
--- NOTE | 2017-03-15 15:43 | PN ---
DATE: 03/15/2017 CARDIOLOGY FOLLOWUP SUBJECTIVE: Discussed with the staff, discussed with the patient. Rhythm strip was reviewed. The patient remains in sinus rhythm. Denies any chest pain or pressure, and breathing has improved now. MEDICATIONS: Reviewed. PHYSICAL EXAMINATION: VITAL SIGNS: Temperature 97.8, heart rate of 60, blood pressure 90/57, respiratory rate of 18. Sat urating 96%. HEENT: Normocephalic, atraumatic. ____. Pupils are equal. CARDIOVASCULAR: Regular rate and rhythm, systolic murmur. PULMONARY: Bilateral rhonchi at the base. GASTROINTESTINAL: Soft, positive for edema. EXTREMITIES: Positive bilateral lower extremity edema. NEUROLOGIC: Awake and alert. PSYCHIATRIC: Appeared to be calm. LABORATORY: WBC of 6.2, hemoglobin 8.7, platelets of 232. Sodium 137, potassium 3.9, BUN of 72, cr eatinine 1.91, glucose 206. Iron is 56. ProBNP of 13,400. LDL 64. TSH is 3.5. ASSESSMENT AND PLAN: 1. Congestive heart failure exacerbation. 2. Renal failure, acute on chronic. 3. Severe cardiomyopathy, ejection fraction of ____35%. 4. Coronary artery disease. 5. History of percutaneous coronary intervention. 6. History of paroxysmal atrial fibrillation, currently in sinus. 7. Severe anemia, pleural effusion. RECOMMENDATIONS: Chest also shows significant pleural effusion bilaterally. I have ordered a thora centesis to be done. We will continue with diuretics. I have ordered type and screen for tomorrow morning. Plan for biventricular ICD placement on Saturday. Please consider transfusion to keep the H and H above 10 prior to this and also over the weekend prior to the planned procedures. Dictated By: COLIN MANJARREZ/LANG Conf#: [id number] DID#: [id number]
--- NOTE | 2017-03-15 15:57 | PN ---
Date/Time of Note Date/Time of Note DATE: 03/15/17 TIME: 15:50 Assessment/Plan VTE Prophylaxis VTE Prophylaxis Intervention: SCD's Lines/Catheters IV Catheter Type (from Nrsg): Saline Lock Assessment/Plan Assessment/Plan 1. Congestive heart failure exacerbation. on diuretics, planeed AICD on Saturday 2. Renal failure, acute on chronic. follow up with BMP 3. Severe cardiomyopathy, ejection fraction 35%. 4. Coronary artery disease. s/p PCI 5. History of paroxysmal atrial fibrillation, currently in sinus. on amiodarone 6. Anemia, follow up with CBC 7. Pleural effusion, from CHF, thoracentesis ordered. Subjective 24 Hr Interval Summary Free Text/Dictation no SOB or chest pain Exam/Review of Systems Vital Signs Vitals Vital Signs Date Time Temp Pulse Resp B/P Pulse Ox O2 Delivery O2 Flow Rate FiO2 03/15/17 15:45 98.3 67 17 103/62 97 03/15/17 04:00 Room Air Nasal Cannula 03/14/17 20:00 2.0 Intake and Output 03/14/17 03/14/17 03/15/17 15:00 23:00 07:00 Intake Total 360 ml 220 ml Output Total 700 ml Balance -700 ml 360 ml 220 ml Exam Constitutional: alert, oriented, well developed Psych: nl mood/affect, no complaints Head: atraumatic, normocephalic Eyes: EOMI, PERRL, nl conjunctiva, nl lids ENMT: mucosa pink and moist, nl external ears & nose, nl lips & teeth, nl nasal mucosa & septum Neck: non-tender, supple Respiratory: clear to auscultation, normal air movement, No congested cough, No crackles/rales, No diminished breath sounds, No intercostal retraction, No labored breathing, No other, No respirations, No tactile fremitus, No wheezing Cardiovascular: nl pulses, regular rate and rhythm Gastrointestinal: nl liver, spleen, non-tender, soft, No ascites, No bowel sounds, No distended, No firm, No hepatomegaly, No mass , No other, No rebound or guarding, No splenomegaly, No surgical scars, No tender Musculoskeletal: nl extremities to inspection Extremities: normal pulses, No calf tenderness, No clubbing, No cyanosis, No edema, No other, No palpable cord, No pitting pedal edema, No tenderness Neurological: [employer] II-XII intact, nl mental status, nl speech, nl strength Skin: nl turgor Lymph: nl lymph nodes Results Result Diagram: 03/15/17 1010 03/15/17 1010 Results 24 hrs Laboratory Tests Test 03/14/17 17:29 03/14/17 21:09 03/15/17 01:00 03/15/17 05:01 Bedside Glucose 136 97 167 123 Test 03/15/17 08:01 03/15/17 10:10 03/15/17 12:05 Bedside Glucose 95 148 White Blood Count 6.2 Red Blood Count 2.75 L Hemoglobin 8.7 L Hematocrit 27.3 L Mean Corpuscular Volume 99.3 Mean Corpuscular Hemoglobin 31.6 Mean Corpuscular Hemoglobin Concent 31.9 L Red Cell Distribution Width 16.2 H Platelet Count 232 Mean Platelet Volume 11.8 H Neutrophils % 67.8 Lymphocytes % 18.7 Monocytes % 10.5 Eosinophils % 1.6 Basophils % 0.6 Nucleated Red Blood Cells % 0.0 Neutrophils # 4.2 Lymphocytes # 1.2 Monocytes # 0.7 Eosinophils # 0.1 Basophils # 0.0 Nucleated Red Blood Cells # 0.0 Prothrombin Time 15.6 H Prothrombin Time Ratio 1.2 INR International Normalized Ratio 1.23 Sodium Level 137 Potassium Level 3.9 Chloride Level 102 Carbon Dioxide Level 28 Anion Gap 11 Blood Urea Nitrogen 72 H Creatinine 1.91 H Glucose Level 206 # Calcium Level 9.0 Magnesium Level 2.2 Iron Level 56 Total Iron Binding Capacity 290 Percent Iron Saturation 19 L Ferritin 242.0 Total Bilirubin 0.4 Direct Bilirubin 0.00 Indirect Bilirubin 0.4 Aspartate Amino Transf (AST/SGOT) 35 Alanine Aminotransferase (ALT/SGPT) 28 Alkaline Phosphatase 188 H B-Type Natriuretic Peptide 69959 H Total Protein 7.6 Albumin 3.5 Globulin 4.10 H Albumin/Globulin Ratio 0.85 Triglycerides Level 85 Cholesterol Level 104 LDL Cholesterol, Calculated 64 # HDL Cholesterol 23 L Cholesterol/HDL Ratio 4.5 Thyroid Stimulating Hormone (TSH) 3.500 Free Thyroxine 2.36 Medications Medications Current Medications Lorazepam (Ativan) 0.5 mg Q6H PRN IV ANXIETY; Start 03/14/17 at 00:00 Metoclopramide HCl (Reglan) 10 mg Q6H PRN IV NAUSEA AND/OR VOMITING; Start at 00:00 Nitroglycerin (Nitroglycerin (Sl Tab) 0.4 Mg) 1 tab Q5M PRN SL CHEST PAIN; Start 03/14/17 at 00:00 Acetaminophen (Tylenol Tab) 650 mg Q6H PRN PO PAIN LEVEL 1-3 OR FEVER; Start at 00:00 Acetaminophen/ Hydrocodone Bitart ([place] (5/325)) 1 tab Q6H PRN PO PAIN LEVEL 4 -6; Start 03/14/17 at 00:00 Acetaminophen/ Hydrocodone Bitart ([place] (5/325)) 2 tab Q6H PRN PO PAIN LEVEL 7 -10; Start 03/14/17 at 00:00 Famotidine (Pepcid) 20 mg DAILY PO Last administered on 03/15/17 09:03; Admin Dose 20 MG; Start 03/14/17 at 09:00 Insulin Aspart (Novolog Insulin Pen) NOVOLOG *MILD* ALGORI... Q4 SC Last administered on 03/15/17 13:02; Admin Dose 1 UNIT; Start 03/14/17 at 01:00 Furosemide (Lasix) 20 mg DAILY@06 IV Last administered on 03/14/17 06:02; Admin Dose 20 MG; Start 03/14/17 at 06:00; Status Future Hold Allopurinol (Zyloprim) 300 mg DAILY PO Last administered on 03/15/17 09:03; Admin Dose 300 MG; Start 03/14/17 at 09:00 Amiodarone HCl (Cordarone) 100 mg DAILY PO Last administered on 03/15/17 09:04 ; Admin Dose 100 MG; Start 03/14/17 at 09:00 Carvedilol (Coreg) 1.5625 mg BID PO Last administered on 03/15/17 09:05; Admin Dose 1.5625 MG; Start 03/14/17 at 09:00 Ferrous Sulfate (Ferrous Sulfate (Ec)) 325 mg TID PO Last administered on 12:26; Admin Dose 325 MG; Start 03/14/17 at 09:00 Isosorbide Mononitrate (Imdur) 30 mg DAILY PO Last administered on 03/15/17 09 :04; Admin Dose 30 MG; Start 03/14/17 at 09:00 Miscellaneous Information 1 ea NOTE XX ; Start 03/14/17 at 00:17 Glucose (Glutose) 15 gm Q15M PRN PO DECREASED GLUCOSE; Start 03/14/17 at 00:17 Glucose (Glutose) 22.5 gm Q15M PRN PO DECREASED GLUCOSE; Start 03/14/17 at 00: 17 Dextrose (D50w Syringe) 25 ml Q15M PRN IV DECREASED GLUCOSE; Start 03/14/17 at 00:17 Dextrose (D50w Syringe) 50 ml Q15M PRN IV DECREASED GLUCOSE; Start 03/14/17 at 00:17 Glucagon (Glucagen) 1 mg Q15M PRN IM DECREASED GLUCOSE; Start 03/14/17 at 00:17 Glucose (Glutose) 15 gm Q15M PRN BUCCAL DECREASED GLUCOSE; Start 03/14/17 at 00 :17 Atorvastatin Calcium (Lipitor) 10 mg HS PO Last administered on 03/14/17 21:10 ; Admin Dose 10 MG; Start 03/14/17 at 21:00 Spironolactone (Aldactone) 25 mg DAILY PO Last administered on 03/15/17 09:05 ; Admin Dose 25 MG; Start 03/14/17 at 09:30 Bumetanide (Bumex) 1 mg Q12 IV Last administered on 03/15/17 09:05; Admin Dose 1 MG; Start 03/14/17 at 10:00 SULEMAN SHERWOOD MD Mar 15, 2017 15:56
[2017-03-15] MEDS ORDERED: LIDOCAINE 1% (MPF) 5 ML VIAL ONE (17:11)
--- NOTE | 2017-03-15 17:46 | RADRPT ---
PROCEDURE: XR Chest. CLINICAL INDICATION: POST THORA TECHNIQUE: Single frontal view of the chest was obtained. COMPARISON: Chest x-ray from 03/13/2017 FINDINGS: There is stable mild cardiomegaly and mild congestive changes. The aortic arch is calcified. There is small bilateral pleural effusions which are stable on the right and mildly increased on the left. There is a stable retrocardiac opacity due to atelectasis, infiltrate, and / or effusion. IMPRESSION: No pneumothorax. Stable mild cardiomegaly and mild congestive changes. Small bilateral pleural effusions which are stable on the right and mildly decreased on the left. Stable retrocardiac opacity. RPTAT: EE Physician Josie Date Time Electronically viewed and signed by Wilbur Saha Physician on 03/15/2017 17:46 /
[2017-03-15] MEDS: HYDROCODONE/APAP (5/325) TAB PO PRN (17:49)
[2017-03-15] MEDS: ATORVASTATIN 10 MG TAB PO SCH (20:34)
[2017-03-16] VITALS (11 sets, daily range): BP systolic 103–110; BP diastolic 56–63; PULSE 62–67; RESP 17–20
[2017-03-16] MEDS: INSULIN ASPART [NOVOLOG] 3 ML PEN SC SCH ×6 (01:06→21:18)
[2017-03-16] MEDS: ACETAMINOPHEN 325 MG TAB PO PRN (05:20)
[2017-03-16 07:35] LABS: ADD SCAN DIFF NO
[2017-03-16 07:47] LABS: BASOPHILS % 0.5 % (0.0-2.0); EOSINOPHILS # 0.1 10^3/ul (0.0-0.5); EOSINOPHILS % 1.4 % (0.0-7.0); HEMATOCRIT 26.3 % (42.0-52.0); HEMOGLOBIN 8.7 g/dl (14.0-18.0); LYMPHOCYTES # 1.2 10^3/ul (0.8-2.9); LYMPHOCYTES % 16.6 % (15.0-51.0); MEAN CORPUSCULAR HEMOGLOBIN 31.9 pg (29.0-33.0); MEAN CORPUSCULAR HGB CONC 33.1 g/dl (32.0-37.0); MEAN CORPUSCULAR VOLUME 96.3 fl (82.0-101.0); MEAN PLATELET VOLUME 11.9 fl (7.4-10.4); MONOCYTE # 0.7 10^3/ul (0.3-0.9); MONOCYTES % 8.8 % (0.0-11.0); NEUTROPHIL # 5.3 10^3/ul (1.6-7.5); NEUTROPHILS % 72.2 % (39.0-77.0); PLATELET COUNT 208 10^3/UL (140-415); RED BLOOD COUNT 2.73 10^6/ul (4.70-6.10); RED CELL DISTRIBUTION WIDTH 16.2 % (11.5-14.5); WHITE BLOOD COUNT 7.4 10^3/ul (4.8-10.8)
[2017-03-16 08:09] LABS: CALCIUM 8.8 mg/dl (8.4-10.2); CREATININE 1.74 mg/dl (0.61-1.24); MAGNESIUM 2.1 mg/dl (1.7-2.5); PHOSPHORUS 4.4 mg/dl (2.5-4.9); POTASSIUM 4.1 mmol/L (3.5-5.1)
[2017-03-16 08:11] LABS: ALBUMIN 3.2 g/dl (3.3-4.9); POTASSIUM 4.2 mmol/L (3.5-5.1)
[2017-03-16 08:14] LABS: ALBUMIN/GLOBULIN RATIO 0.82; BILIRUBIN,INDIRECT 0.6 mg/dl (0-1.1); BILIRUBIN,TOTAL 0.6 mg/dl (0.2-1.3); CALCIUM 8.8 mg/dl (8.4-10.2); CREATININE 1.71 mg/dl (0.61-1.24); TOTAL PROTEIN 7.1 g/dl (6.1-8.1)
[2017-03-16] MEDS: BUMETANIDE 1 MG INJ IV SCH (10:11)
[2017-03-16] MEDS: FAMOTIDINE 20 MG TAB PO SCH (10:12)
[2017-03-16] MEDS: SPIRONOLACTONE 25 MG TAB PO SCH (10:12)
[2017-03-16] MEDS: ISOSORBIDE MONONITRATE(SR)30 MG TAB PO SCH (10:12)
[2017-03-16] MEDS: FERROUS SULFATE (EC) 325 MG TAB PO SCH ×3 (10:12→21:13)
[2017-03-16] MEDS: ALLOPURINOL 300 MG TAB PO SCH (10:12)
[2017-03-16] MEDS: AMIODARONE 200 MG TAB PO SCH (10:13)
[2017-03-16] MEDS: HYDROCODONE/APAP (5/325) TAB PO PRN ×2 (10:23→16:46)
--- NOTE | 2017-03-16 11:15 | PN ---
DATE: 03/16/2017 SUBJECTIVE DATA: Complains of right chest wall pain. Denies any dyspnea. OBJECTIVE DATA: VITAL SIGNS: Temperature 99.0, pulse of 67, respiratory rate 17, blood pressure 107/59, oxygen saturation 95% on room air. GENERAL: This is a thin, frail-looking male lying in bed in no apparent distress. HEENT: Head normocephalic and atraumatic. Eyes: Anicteric sclerae. Conjunctivae clear. ENT: Nasal septum is midline. Oral mucosa is dry. NECK: Supple. No JVD noticed. RESPIRATORY: Bilaterally diminished breath sounds. No adventitious breath sounds heard. No use of accessory muscles of respiration. CARDIAC: Regular rate and rhythm with a grade II/ systolic ejection murmur. ABDOMEN: Soft, nontender, nondistended. Bowel sounds hyperactive in all 4 quadrants. GENITOURINARY: Deferred. EXTREMITIES: No cyanosis, no clubbing. Bilateral trace pretibial edema. Peripheral pulses palpable. NEUROLOGIC: The patient is awake, alert and oriented. Cranial nerves are grossly intact. LABORATORY AND DIAGNOSTIC DATA: WBC 7.4, hemoglobin 8.7, hematocrit 26.3, platelet count 208. Sodium 138, potassium 4.2, chloride 98, carbon dioxide 27, anion gap 17, BUN 67, creatinine 1.71, glucose 102, calcium 8.8. ASSESSMENT AND PLAN: 1. Acute on chronic congestive heart failure exacerbation. Systolic and diastolic dysfunction. Continue to optimize cardiac medications. Plan for AICD placement on Saturday03/19/2017. 2. Acute on chronic renal failure. Continue to monitor renal function closely. The patient is being followed by nephrology. 3. Cardiomyopathy with ejection fraction of 30 to 35%. Continue beta blockers and aldosterone antagonists. Cardiology following. 4. Pulmonary artery hypertension. PA systolic pressure of 58 mmHg. Continue supplemental oxygen. 5. Coronary artery disease. Status post percutaneous coronary intervention in the past. Continue statins. 6. Normocytic normochromic anemia. Continue iron supplements. Monitor hemoglobin and hematocrit closely. 7. Type 2 diabetes mellitus. Hemoglobin A1c is 6.2. Continue sliding scale insulin. Blood sugars well controlled. 8. Dyslipidemia. Continue statins. 9. History of paroxysmal atrial fibrillation. Currently in sinus rhythm. Continue amiodarone. 10. Bilateral pleural effusions. Continue diuretics. 11. Fluid, electrolytes and nutrition. Carbohydrate controlled renal diet. 12. Deep venous thrombosis prophylaxis. Bilateral sequential compression devices. 13. Gastrointestinal prophylaxis. Histamine 2 receptor blockers. PLAN: Continue to optimize cardiac medications. Await AICD placement. Case discussed with Dr. Jaquez. MISHA JAQUEZ MD, AM/LANG Conf#: [id number] DID#: [id number] MTDD
--- NOTE | 2017-03-16 11:18 | PN ---
Date/Time of Note Date/Time of Note DATE: 03/16/17 TIME: 11:16 Assessment/Plan VTE Prophylaxis VTE Prophylaxis Intervention: SCD's Lines/Catheters IV [facility] Type [facility] Saline Lock Assessment/Plan Assessment/Plan 1. Congestive heart failure exacerbation. 2. Renal failure, acute on chronic. 3. Severe cardiomyopathy, ejection fraction of ____35%. 4. Coronary artery disease. 5. History of percutaneous coronary intervention. 6. History of paroxysmal atrial fibrillation, currently in sinus. 7. Severe anemia, pleural effusion. RECOMMENDATIONS: Chest also shows significant pleural effusion bilaterally. We will continue with diuretics Plan for biventricular ICD placement on Saturday. Please consider transfusion to keep the H and H above 10 prior to this and also over the weekend prior to the planned procedures. Subjective 24 Hr Interval Summary Free Text/Dictation the patient is stable overnight Exam/Review of Systems Vital Signs Vitals Vital Signs Date Time Temp Pulse Resp B/P Pulse Ox O2 Delivery O2 Flow Rate FiO2 03/16/17 08:16 67 03/16/17 07:30 99.0 17 107/59 95 03/16/17 00:00 Room Air 03/14/17 20:00 2.0 Intake and Output 03/15/17 03/15/17 03/16/17 15:00 23:00 07:00 Intake Total 720 ml 420 ml Balance 720 ml 420 ml Results Result Diagram: 03/16/17 0515 03/16/17 0525 Results 24 hrs Laboratory Tests Test 03/15/17 12:05 03/15/17 17:51 03/15/17 20:52 03/16/17 00:49 Bedside Glucose 148 185 139 165 Test 03/16/17 05:15 03/16/17 05:16 03/16/17 05:25 03/16/17 08:25 White Blood Count 7.4 Red Blood Count 2.73 L Hemoglobin 8.7 L Hematocrit 26.3 L Mean Corpuscular Volume 96.3 Mean Corpuscular Hemoglobin 31.9 Mean Corpuscular Hemoglobin Concent 33.1 Red Cell Distribution Width 16.2 H Platelet Count 208 Mean Platelet Volume 11.9 H Neutrophils % 72.2 Lymphocytes % 16.6 Monocytes % 8.8 Eosinophils % 1.4 Basophils % 0.5 Nucleated Red Blood Cells % 0.0 Neutrophils # 5.3 Lymphocytes # 1.2 Monocytes # 0.7 Eosinophils # 0.1 Basophils # 0.0 Nucleated Red Blood Cells # 0.0 Bedside Glucose 130 113 Sodium Level 138 Potassium Level 4.2 Chloride Level 98 Carbon Dioxide Level 27 Anion Gap 17 H Blood Urea Nitrogen 67 H Creatinine 1.71 H Glucose Level 102 Calcium Level 8.8 Phosphorus Level 4.4 Magnesium Level 2.1 Total Bilirubin 0.6 Direct Bilirubin 0.00 Indirect Bilirubin 0.6 Aspartate Amino Transf (AST/SGOT) 38 Alanine Aminotransferase (ALT/SGPT) 32 Alkaline Phosphatase 196 H B-Type Natriuretic Peptide 76024 H Total Protein 7.1 Albumin 3.2 L Globulin 3.90 H Albumin/Globulin Ratio 0.82 Medications Medications Current Medications Lorazepam (Ativan) 0.5 mg Q6H PRN IV ANXIETY; Start 03/14/17 at 00:00 Metoclopramide HCl (Reglan) 10 mg Q6H PRN IV NAUSEA AND/OR VOMITING; Start at 00:00 Nitroglycerin (Nitroglycerin (Sl Tab) 0.4 Mg) 1 tab Q5M PRN SL CHEST PAIN; Start 03/14/17 at 00:00 Acetaminophen (Tylenol Tab) 650 mg Q6H PRN PO PAIN LEVEL 1-3 OR FEVER Last administered on 03/16/17 05:20; Admin Dose 650 MG; Start 03/14/17 at 00:00 Acetaminophen/ Hydrocodone Bitart ([place] (5/325)) 1 tab Q6H PRN PO PAIN LEVEL 4 -6 Last administered on 03/16/17 10:23; Admin Dose 1 TAB; Start 03/14/17 at 00: 00 Acetaminophen/ Hydrocodone Bitart ([place] (5/325)) 2 tab Q6H PRN PO PAIN LEVEL 7 -10 Last administered on 03/15/17 17:49; Admin Dose 2 TAB; Start 03/14/17 at 00 :00 Famotidine (Pepcid) 20 mg DAILY PO Last administered on 03/16/17 10:12; Admin Dose 20 MG; Start 03/14/17 at 09:00 Insulin Aspart (Novolog Insulin Pen) NOVOLOG *MILD* ALGORI... Q4 SC Last administered on 03/16/17 01:06; Admin Dose 1 UNIT; Start 03/14/17 at 01:00 Furosemide (Lasix) 20 mg DAILY@06 IV Last administered on 03/14/17 06:02; Admin Dose 20 MG; Start 03/14/17 at 06:00; Status Future Hold Allopurinol (Zyloprim) 300 mg DAILY PO Last administered on 03/16/17 10:12; Admin Dose 300 MG; Start 03/14/17 at 09:00 Amiodarone HCl (Cordarone) 100 mg DAILY PO Last administered on 03/16/17 10:13 ; Admin Dose 100 MG; Start 03/14/17 at 09:00 Carvedilol (Coreg) 1.5625 mg BID PO Last administered on 03/16/17 10:11; Admin Dose 1.5625 MG; Start 03/14/17 at 09:00 Ferrous Sulfate (Ferrous Sulfate (Ec)) 325 mg TID PO Last administered on 10:12; Admin Dose 325 MG; Start 03/14/17 at 09:00 Isosorbide Mononitrate (Imdur) 30 mg DAILY PO Last administered on 03/16/17 10 :12; Admin Dose 30 MG; Start 03/14/17 at 09:00 Miscellaneous Information 1 ea NOTE XX ; Start 03/14/17 at 00:17 Glucose (Glutose) 15 gm Q15M PRN PO DECREASED GLUCOSE; Start 03/14/17 at 00:17 Glucose (Glutose) 22.5 gm Q15M PRN PO DECREASED GLUCOSE; Start 03/14/17 at 00: 17 Dextrose (D50w Syringe) 25 ml Q15M PRN IV DECREASED GLUCOSE; Start 03/14/17 at 00:17 Dextrose (D50w Syringe) 50 ml Q15M PRN IV DECREASED GLUCOSE; Start 03/14/17 at 00:17 Glucagon (Glucagen) 1 mg Q15M PRN IM DECREASED GLUCOSE; Start 03/14/17 at 00:17 Glucose (Glutose) 15 gm Q15M PRN BUCCAL DECREASED GLUCOSE; Start 03/14/17 at 00 :17 Atorvastatin Calcium (Lipitor) 10 mg HS PO Last administered on 03/15/17 20:34 ; Admin Dose 10 MG; Start 03/14/17 at 21:00 Spironolactone (Aldactone) 25 mg DAILY PO Last administered on 03/16/17 10:12 ; Admin Dose 25 MG; Start 03/14/17 at 09:30 Bumetanide (Bumex) 1 mg Q12 IV Last administered on 03/16/17t 10:11; Admin Dose 1 MG; Start 03/14/17 at 10:00; Status Future Hold ALYSE VAIL MD Mar 16, 2017 11:18
--- NOTE | 2017-03-16 12:13 | PN ---
DATE: 03/16/2017 SUBJECTIVE: The patient is stable, no acute events overnight. No fevers, chills, nausea, vomiting. OBJECTIVE: VITAL SIGNS: Blood pressure 107/59, respirations 17, pulse 68, temperature 99.0. HEENT: Head is normocephalic. NECK: Supple. HEART: Regular rate. LUNGS: Show diminished breath sounds at the bases. ABDOMEN: Soft, nontender to palpation. No rebound or guarding. EXTREMITIES: Negative for clubbing, cyanosis. Positive edema. DERMATOLOGIC: No rashes. MUSCULOSKELETAL: No joint effusions. NEUROLOGIC: No change in exam. MEDICATIONS: The patient's medications have been reviewed. LABORATORY DATA: Shows sodium 138, potassium 4.2, chloride 98, BUN 67, creatinine 1.71. White coun t 7.4, hemoglobin 9.7, hematocrit 26.2, platelet count 208. ASSESSMENT AND PLAN: 1. Nonoliguric acute kidney injury on top of chronic kidney disease stage IIIB/IV with previous bas michelle creatinine of 1.5 to 2 mg/dL. Etiology of current acute kidney injury is secondary to cardior enal syndrome. The patient's renal function has been improving with diuretic therapy. At this poin t, continue current treatment plan, supportive care, renally dose all meds, continue diuretic regime n. 2. Hypokalemia, improved. 3. Mineral bone disorder. Continue to monitor calcium and phosphorus levels. 4. Acute congestive heart failure exacerbation. The patient is clinically improving. Continue cur rent diuretic regimen. 5. Paroxysmal atrial fibrillation, currently in sinus rhythm. Continue medical management. 6. Pulmonary hypertension. 7. Bilateral pleural effusions due to underlying congestive heart failure. Continue medical manage ment. 8. Diabetes. Continue Accu-Cheks and insulin sliding scale. 9. History of colon cancer. Dictated By: ANIL PERALES/LANG Conf#: [id number] DID#: [id number]
[2017-03-16] MEDS: BUMETANIDE 1 MG TAB PO SCH (18:00)
[2017-03-16] MEDS: ATORVASTATIN 10 MG TAB PO SCH (21:13)
[2017-03-17] VITALS (12 sets, daily range): BP systolic 103–110; BP diastolic 59–63; PULSE 62–69; RESP 18–20
[2017-03-17] MEDS: INSULIN ASPART [NOVOLOG] 3 ML PEN SC SCH ×6 (01:00→20:56)
[2017-03-17] MEDS: BUMETANIDE 1 MG TAB PO SCH ×2 (06:04→17:33)
[2017-03-17 07:50] LABS: ADD SCAN DIFF NO; BASOPHILS % 0.6 % (0.0-2.0); EOSINOPHILS # 0.1 10^3/ul (0.0-0.5); EOSINOPHILS % 1.8 % (0.0-7.0); HEMATOCRIT 25.3 % (42.0-52.0); LYMPHOCYTES # 1.6 10^3/ul (0.8-2.9); LYMPHOCYTES % 22.3 % (15.0-51.0); MEAN CORPUSCULAR HEMOGLOBIN 30.8 pg (29.0-33.0); MEAN CORPUSCULAR HGB CONC 31.6 g/dl (32.0-37.0); MEAN CORPUSCULAR VOLUME 97.3 fl (82.0-101.0); MEAN PLATELET VOLUME 12.1 fl (7.4-10.4); MONOCYTE # 0.8 10^3/ul (0.3-0.9); MONOCYTES % 11.4 % (0.0-11.0); NEUTROPHIL # 4.6 10^3/ul (1.6-7.5); NEUTROPHILS % 63.5 % (39.0-77.0); PLATELET COUNT 180 10^3/UL (140-415); RED CELL DISTRIBUTION WIDTH 16.2 % (11.5-14.5); WHITE BLOOD COUNT 7.2 10^3/ul (4.8-10.8)
[2017-03-17 08:16] LABS: POTASSIUM 4.2 mmol/L (3.5-5.1)
[2017-03-17 08:19] LABS: CREATININE 1.9 mg/dl (0.61-1.24)
[2017-03-17 08:20] LABS: CALCIUM 8.6 mg/dl (8.4-10.2); PHOSPHORUS 4.5 mg/dl (2.5-4.9)
[2017-03-17] MEDS: FAMOTIDINE 20 MG TAB PO SCH (09:00)
[2017-03-17] MEDS: ALLOPURINOL 300 MG TAB PO SCH (09:00)
[2017-03-17] MEDS: FERROUS SULFATE (EC) 325 MG TAB PO SCH ×3 (09:01→20:55)
[2017-03-17] MEDS: SPIRONOLACTONE 25 MG TAB PO SCH (09:01)
[2017-03-17] MEDS: AMIODARONE 200 MG TAB PO SCH (09:02)
[2017-03-17] MEDS: ISOSORBIDE MONONITRATE(SR)30 MG TAB PO SCH (09:02)
[2017-03-17] MEDS ORDERED: HYPOGLYCEMIA PROTOCOL when Glucose is <70 mg/dL or symptomatic <90 mg/dL. XX ONE (09:30)
[2017-03-17] MEDS ORDERED: BUMETANIDE 1 MG INJ IV ONE (10:00)
--- NOTE | 2017-03-17 10:46 | PN ---
DATE: 03/17/2017 SUBJECTIVE: The patient is stable. Breathing has improved. The patient received 1 unit of PRBCs y . No other events noted. No hemoptysis, hematemesis, or hematochezia. OBJECTIVE: VITAL SIGNS: Blood pressure 108/60, respiration 18, pulse 68, temperature 99.2. HEENT: Head is normocephalic. NECK: Supple. HEART: Regular rate. LUNGS: Show diminished breath sounds at the base. Positive crackles. ABDOMEN: Soft, nontender to palpation without rebound or guarding. EXTREMITIES: Negative for clubbing, cyanosis. Positive edema. DERMATOLOGIC: No rashes. MUSCULOSKELETAL: No joint effusions. NEUROLOGIC: No change in exam. MEDICATIONS: Reviewed. LABORATORY DATA: Showed sodium 135, potassium 4.2, BUN 66, creatinine 1.90. White count 7.3, hemog lobin 8.0, hematocrit 25.3, platelet count is 180. ASSESSMENT AND PLAN: 1. Nonoliguric acute kidney injury on top of chronic kidney disease, stage IIIB/IV, with previous b aseline creatinine around 1.5 to 2 mg/dL. The etiology of acute kidney injury is secondary to cardi orenal syndrome. The patient is clinically improved with diuretic therapy. We will continue curren t treatment plan. We will continue Bumex. Continue supportive care, renally dose all medications, avoid nephrotoxins. 2. Hypokalemia, improved. 3. Mineral bone disorder. Continue to monitor calcium and phosphorus levels. 4. Anemia. Continue to monitor hemoglobin and hematocrit levels. 5. Acute congestive heart failure exacerbation, systolic and diastolic. The patient is clinically improving. We will continue Bumex 1 mg b.i.d., given additional dose of IV Bumex x1. 6. Paroxysmal atrial fibrillation, currently sinus rhythm. Continue medical management. 7. Bilateral pleural effusions secondary to congestive heart failure. Continue current treatment p karlos. 8. Diabetes. Continue Accu-Cheks and sliding scale. 9. Pulmonary hypertension. 10. History of colon cancer. Dictated By: ANIL PERALES/LANG Conf#: [id number] DID#: [id number]
--- NOTE | 2017-03-17 12:08 | PN ---
Date/Time of Note Date/Time of Note DATE: 03/17/17 TIME: 12:07 Assessment/Plan VTE Prophylaxis VTE Prophylaxis Intervention: SCD's Lines/Catheters IV C[facility]ter Type (from [facility] Peripheral IV Assessment/Plan Chief Complaint/Hosp Course 1. Acute on chronic congestive heart failure exacerbation. Systolic and diastolic dysfunction. Continue to optimize cardiac medications. Plan for AICD placement on Saturday03/19/2017. 2. Acute on chronic renal failure. Continue to monitor renal function closely. The patient is being followed by nephrology. 3. Cardiomyopathy with ejection fraction of 30 to 35%. Continue beta blockers and aldosterone antagonist. Cardiology following. 4. Pulmonary artery hypertension. PA systolic pressure of 58 mmHg. Continue supplemental oxygen. 5. Coronary artery disease. Status post percutaneous coronary intervention in the past. Continue statins. 6. Normocytic normochromic anemia. Continue iron supplements. Monitor hemoglobin and hematocrit closely. 7. Type 2 diabetes mellitus. Hemoglobin A1c is 6.2. Continue sliding scale insulin. Blood sugars well controlled. 8. Dyslipidemia. Continue statins. 9. History of paroxysmal atrial fibrillation. Currently in sinus rhythm. Continue amiodarone. 10. Bilateral pleural effusions. Continue diuretics. 11. Fluid, electrolytes and nutrition. Carbohydrate controlled renal diet. 12. Deep venous thrombosis prophylaxis. Bilateral sequential compression devices. 13. Gastrointestinal prophylaxis. Histamine 2 receptor blockers. PLAN: Transfuse PRBC today. Continue to optimize cardiac medications. Await AICD placement. Case discussed with Dr. Phan. Problems: Subjective 24 Hr Interval Summary Free Text/Dictation Denies any complaints. Exam/Review of Systems Vital Signs Vitals Vital Signs Date Time Temp Pulse Resp B/P Pulse Ox O2 Delivery O2 Flow Rate FiO2 03/17/17 12:01 99.2 63 18 108/62 97 03/16/17 21:00 Nasal Cannula 2.0 Intake and Output 03/16/17 03/16/17 03/17/17 15:00 23:00 07:00 Intake Total 480 ml 400 ml Balance 480 ml 400 ml Exam GENERAL: This is a thin, frail-looking male lying in bed in no apparent distress. HEENT: Head normocephalic and atraumatic. Eyes: Anicteric sclerae. Conjunctivae clear. ENT: Nasal septum is midline. Oral mucosa is dry. NECK: Supple. No JVD noticed. RESPIRATORY: Bilaterally diminished breath sounds. No adventitious breath sounds heard. No use of accessory muscles of respiration. CARDIAC: Regular rate and rhythm with a grade II/ systolic ejection murmur. ABDOMEN: Soft, nontender, nondistended. Bowel sounds hyperactive in all 4 quadrants. GENITOURINARY: Deferred. EXTREMITIES: No cyanosis, no clubbing. Bilateral trace pretibial edema. Peripheral pulses palpable. NEUROLOGIC: The patient is awake, alert and oriented. Cranial nerves are grossly intact. Results Result Diagram: 03/17/17 0640 03/17/17 0640 Results 24 hrs Laboratory Tests Test 03/16/17 12:34 03/16/17 17:45 03/16/17 20:37 03/17/17 01:35 Bedside Glucose 138 144 200 144 Test 03/17/17 06:02 03/17/17 06:40 03/17/17 08:24 Bedside Glucose 113 103 White Blood Count 7.2 Red Blood Count 2.60 L Hemoglobin 8.0 L Hematocrit 25.3 L Mean Corpuscular Volume 97.3 Mean Corpuscular Hemoglobin 30.8 Mean Corpuscular Hemoglobin Concent 31.6 L Red Cell Distribution Width 16.2 H Platelet Count 180 Mean Platelet Volume 12.1 H Neutrophils % 63.5 Lymphocytes % 22.3 Monocytes % 11.4 H Eosinophils % 1.8 Basophils % 0.6 Nucleated Red Blood Cells % 0.0 Neutrophils # 4.6 Lymphocytes # 1.6 Monocytes # 0.8 Eosinophils # 0.1 Basophils # 0.0 Nucleated Red Blood Cells # 0.0 Sodium Level 135 Potassium Level 4.2 Chloride Level 96 L Carbon Dioxide Level 28 Anion Gap 15 Blood Urea Nitrogen 66 H Creatinine 1.90 H Glucose Level 94 Calcium Level 8.6 Phosphorus Level 4.5 Magnesium Level 2.0 Medications Medications Current Medications Lorazepam (Ativan) 0.5 mg Q6H PRN IV ANXIETY; Start 03/14/17 at 00:00 Metoclopramide HCl (Reglan) 10 mg Q6H PRN IV NAUSEA AND/OR VOMITING; Start at 00:00 Nitroglycerin (Nitroglycerin (Sl Tab) 0.4 Mg) 1 tab Q5M PRN SL CHEST PAIN; Start 03/14/17 at 00:00 Acetaminophen (Tylenol Tab) 650 mg Q6H PRN PO PAIN LEVEL 1-3 OR FEVER Last administered on 03/16/17 05:20; Admin Dose 650 MG; Start 03/14/17 at 00:00 Acetaminophen/ Hydrocodone Bitart ([place] (5/325)) 1 tab Q6H PRN PO PAIN LEVEL 4 -6 Last administered on 03/16/17 16:46; Admin Dose 1 TAB; Start 03/14/17 at 00: 00 Acetaminophen/ Hydrocodone Bitart ([place] (5/325)) 2 tab Q6H PRN PO PAIN LEVEL 7 -10 Last administered on 03/15/17 17:49; Admin Dose 2 TAB; Start 03/14/17 at 00 :00 Famotidine (Pepcid) 20 mg DAILY PO Last administered on 03/17/17 09:00; Admin Dose 20 MG; Start 03/14/17 at 09:00 Allopurinol (Zyloprim) 300 mg DAILY PO Last administered on 03/17/17 09:00; Admin Dose 300 MG; Start 03/14/17 at 09:00 Amiodarone HCl (Cordarone) 100 mg DAILY PO Last administered on 03/17/17 09:02 ; Admin Dose 100 MG; Start 03/14/17 at 09:00 Carvedilol (Coreg) 1.5625 mg BID PO Last administered on 03/17/17 09:01; Admin Dose 1.5625 MG; Start 03/14/17 at 09:00 Ferrous Sulfate (Ferrous Sulfate (Ec)) 325 mg TID PO Last administered on 09:01; Admin Dose 325 MG; Start 03/14/17 at 09:00 Isosorbide Mononitrate (Imdur) 30 mg DAILY PO Last administered on 03/17/17 09 :02; Admin Dose 30 MG; Start 03/14/17 at 09:00 Miscellaneous Information 1 ea NOTE XX ; Start 03/14/17 at 00:17 Glucose (Glutose) 15 gm Q15M PRN PO DECREASED GLUCOSE; Start 03/14/17 at 00:17 Glucose (Glutose) 22.5 gm Q15M PRN PO DECREASED GLUCOSE; Start 03/14/17 at 00: 17 Dextrose (D50w Syringe) 25 ml Q15M PRN IV DECREASED GLUCOSE; Start 03/14/17 at 00:17 Dextrose (D50w Syringe) 50 ml Q15M PRN IV DECREASED GLUCOSE; Start 03/14/17 at 00:17 Glucagon (Glucagen) 1 mg Q15M PRN IM DECREASED GLUCOSE; Start 03/14/17 at 00:17 Glucose (Glutose) 15 gm Q15M PRN BUCCAL DECREASED GLUCOSE; Start 03/14/17 at 00 :17 Atorvastatin Calcium (Lipitor) 10 mg HS PO Last administered on 03/16/17 21:13 ; Admin Dose 10 MG; Start 03/14/17 at 21:00 Spironolactone (Aldactone) 25 mg DAILY PO Last administered on 03/17/17 09:01 ; Admin Dose 25 MG; Start 03/14/17 at 09:30 Diagnostic Test (Pha) (Accu-Chek) 1 02 XX ; Start 03/18/17 at 02:00 MISHA LANDRY NP Mar 17, 2017 12:08
--- NOTE | 2017-03-17 17:38 | CONS ---
Date/Time of Note Date/Time of Note DATE: 03/17/17 TIME: 17:36 Assessment/Plan Assessment/Plan Additional Assessment/Plan Acute decompensated systolic congestive heart failure Cardiomyopathy with ejection fraction 30-35% Coronary disease Paroxysmal atrial fibrillation Acute blood loss anemia Acute kidney injury -Blood pressure trend overall remained stable, patient status post 1 unit of blood transfusion today. Diuretics as per our nephrology colleagues. Remains in sinus rhythm. Dr Macias to resume care 03/17/2017 Consultation Date/Type/Reason Admit Date/Time Mar 13, 2017 at 23:30 Initial Consult Date Type of Consultation: cv 24 HR Interval Summary Free Text/Dictation Feeling better, denies shortness of breath at rest or with exertion. Status post blood transfusion Exam/Review of Systems Vital Signs Vitals Vital Signs Date Time Temp Pulse Resp B/P Pulse Ox O2 Delivery O2 Flow Rate FiO2 03/17/17 16:20 63 03/17/17 15:55 99.3 18 103/59 96 03/16/17 21:00 Nasal Cannula 2.0 Intake and Output 03/16/17 03/16/17 03/17/17 15:00 23:00 07:00 Intake Total 480 ml 400 ml Balance 480 ml 400 ml Exam No apparent distress Constitutional: alert, oriented Head: normocephalic Respiratory: other Cardiovascular: other (S1-S2 heard), regular rate and rhythm Gastrointestinal: bowel sounds, non-tender, soft Extremities: other (No edema) Results Result Diagram: 03/17/17 0640 03/17/17 0640 Results 24 hrs Laboratory Tests Test 03/16/17 17:45 03/16/17 20:37 03/17/17 01:35 03/17/17 06:02 Bedside Glucose 144 200 144 113 Test 03/17/17 06:40 03/17/17 08:24 03/17/17 11:55 White Blood Count 7.2 Red Blood Count 2.60 L Hemoglobin 8.0 L Hematocrit 25.3 L Mean Corpuscular Volume 97.3 Mean Corpuscular Hemoglobin 30.8 Mean Corpuscular Hemoglobin Concent 31.6 L Red Cell Distribution Width 16.2 H Platelet Count 180 Mean Platelet Volume 12.1 H Neutrophils % 63.5 Lymphocytes % 22.3 Monocytes % 11.4 H Eosinophils % 1.8 Basophils % 0.6 Nucleated Red Blood Cells % 0.0 Neutrophils # 4.6 Lymphocytes # 1.6 Monocytes # 0.8 Eosinophils # 0.1 Basophils # 0.0 Nucleated Red Blood Cells # 0.0 Sodium Level 135 Potassium Level 4.2 Chloride Level 96 L Carbon Dioxide Level 28 Anion Gap 15 Blood Urea Nitrogen 66 H Creatinine 1.90 H Glucose Level 94 Calcium Level 8.6 Phosphorus Level 4.5 Magnesium Level 2.0 Bedside Glucose 103 173 Medications Medications Current Medications Lorazepam (Ativan) 0.5 mg Q6H PRN IV ANXIETY; Start 03/14/17 at 00:00 Metoclopramide HCl (Reglan) 10 mg Q6H PRN IV NAUSEA AND/OR VOMITING; Start at 00:00 Nitroglycerin (Nitroglycerin (Sl Tab) 0.4 Mg) 1 tab Q5M PRN SL CHEST PAIN; Start 03/14/17 at 00:00 Acetaminophen (Tylenol Tab) 650 mg Q6H PRN PO PAIN LEVEL 1-3 OR FEVER Last administered on 03/16/17 05:20; Admin Dose 650 MG; Start 03/14/17 at 00:00 Acetaminophen/ Hydrocodone Bitart ([place] (5/325)) 1 tab Q6H PRN PO PAIN LEVEL 4 -6 Last administered on 03/16/17 16:46; Admin Dose 1 TAB; Start 03/14/17 at 00: 00 Acetaminophen/ Hydrocodone Bitart ([place] (5/325)) 2 tab Q6H PRN PO PAIN LEVEL 7 -10 Last administered on 03/15/17 17:49; Admin Dose 2 TAB; Start 03/14/17 at 00 :00 Famotidine (Pepcid) 20 mg DAILY PO Last administered on 03/17/17 09:00; Admin Dose 20 MG; Start 03/14/17 at 09:00 Allopurinol (Zyloprim) 300 mg DAILY PO Last administered on 03/17/17 09:00; Admin Dose 300 MG; Start 03/14/17 at 09:00 Amiodarone HCl (Cordarone) 100 mg DAILY PO Last administered on 03/17/17 09:02 ; Admin Dose 100 MG; Start 03/14/17 at 09:00 Carvedilol (Coreg) 1.5625 mg BID PO Last administered on 03/17/17 09:01; Admin Dose 1.5625 MG; Start 03/14/17 at 09:00 Ferrous Sulfate (Ferrous Sulfate (Ec)) 325 mg TID PO Last administered on 13:53; Admin Dose 325 MG; Start 03/14/17 at 09:00 Isosorbide Mononitrate (Imdur) 30 mg DAILY PO Last administered on 03/17/17 09 :02; Admin Dose 30 MG; Start 03/14/17 at 09:00 Miscellaneous Information 1 ea NOTE XX ; Start 03/14/17 at 00:17 Glucose (Glutose) 15 gm Q15M PRN PO DECREASED GLUCOSE; Start 03/14/17 at 00:17 Glucose (Glutose) 22.5 gm Q15M PRN PO DECREASED GLUCOSE; Start 03/14/17 at 00: 17 Dextrose (D50w Syringe) 25 ml Q15M PRN IV DECREASED GLUCOSE; Start 03/14/17 at 00:17 Dextrose (D50w Syringe) 50 ml Q15M PRN IV DECREASED GLUCOSE; Start 03/14/17 at 00:17 Glucagon (Glucagen) 1 mg Q15M PRN IM DECREASED GLUCOSE; Start 03/14/17 at 00:17 Glucose (Glutose) 15 gm Q15M PRN BUCCAL DECREASED GLUCOSE; Start 03/14/17 at 00 :17 Atorvastatin Calcium (Lipitor) 10 mg HS PO Last administered on 03/16/17 21:13 ; Admin Dose 10 MG; Start 03/14/17 at 21:00 Spironolactone (Aldactone) 25 mg DAILY PO Last administered on 03/17/17 09:01 ; Admin Dose 25 MG; Start 03/14/17 at 09:30 Diagnostic Test (Pha) (Accu-Chek) 1 ea 02 XX ; Start 03/18/17 at 02:00 Timbo Raygoza DO Mar 17, 2017 17:38
[2017-03-17] MEDS: ATORVASTATIN 10 MG TAB PO SCH (20:54)
[2017-03-18] VITALS (12 sets, daily range): BP systolic 99–114; BP diastolic 54–67; PULSE 58–68; RESP 18–57
[2017-03-18] MEDS: ACCU-CHEK XX SCH (02:00)
[2017-03-18] MEDS: BUMETANIDE 1 MG TAB PO SCH ×2 (05:54→18:34)
--- NOTE | 2017-03-18 07:45 | RADRPT ---
PROCEDURE: Ultrasound guided thoracentesis CLINICAL INDICATION: Pleural fluid TECHNIQUE: Multiple sonographic images were obtained through the patient's chest. A site in the p slade's RIGHT lower chest was selected and marked. The area was prepped and draped in the usual ashish rile fashion. 1% lidocaine was utilized. A 19-gauge Yueh needle was advanced into the pleural space and the introducer was connected to a vacuum drainage system. A total of 1000 cc of clear yellow f luid were drained at the end of the procedure. The patient tolerated the procedure well. The specime n was sent for laboratory evaluation. RPTAT: AA COMPARISON: None FINDINGS: Pleural effusion. RPTAT: AA IMPRESSION: Uncomplicated ultrasound-guided right thoracentesis. Physician Josie Date Time Electronically viewed and signed by Physician Josie on 03/18/2017 07:45 /
[2017-03-18 08:28] LABS: ADD SCAN DIFF NO
[2017-03-18 08:43] LABS: BASOPHIL # 0.1 10^3/ul (0.0-0.1); BASOPHILS % 0.8 % (0.0-2.0); EOSINOPHILS # 0.1 10^3/ul (0.0-0.5); EOSINOPHILS % 1.6 % (0.0-7.0); HEMATOCRIT 28.5 % (42.0-52.0); HEMOGLOBIN 9.3 g/dl (14.0-18.0); LYMPHOCYTES # 1.5 10^3/ul (0.8-2.9); LYMPHOCYTES % 20.1 % (15.0-51.0); MEAN CORPUSCULAR HEMOGLOBIN 30.2 pg (29.0-33.0); MEAN CORPUSCULAR HGB CONC 32.6 g/dl (32.0-37.0); MEAN CORPUSCULAR VOLUME 92.5 fl (82.0-101.0); MEAN PLATELET VOLUME 11.8 fl (7.4-10.4); MONOCYTE # 0.9 10^3/ul (0.3-0.9); MONOCYTES % 12.2 % (0.0-11.0); NEUTROPHIL # 4.9 10^3/ul (1.6-7.5); NEUTROPHILS % 64.8 % (39.0-77.0); PLATELET COUNT 185 10^3/UL (140-415); RED BLOOD COUNT 3.08 10^6/ul (4.70-6.10); RED CELL DISTRIBUTION WIDTH 18.1 % (11.5-14.5); WHITE BLOOD COUNT 7.6 10^3/ul (4.8-10.8)
[2017-03-18 08:47] LABS: POTASSIUM 3.7 mmol/L (3.5-5.1)
[2017-03-18 08:50] LABS: CREATININE 2.14 mg/dl (0.61-1.24)
[2017-03-18 08:51] LABS: CALCIUM 8.7 mg/dl (8.4-10.2); PHOSPHORUS 4.3 mg/dl (2.5-4.9)
[2017-03-18] MEDS: INSULIN ASPART [NOVOLOG] 3 ML PEN SC SCH ×4 (09:01→20:52)
[2017-03-18] MEDS: FAMOTIDINE 20 MG TAB PO SCH (09:25)
[2017-03-18] MEDS: ALLOPURINOL 300 MG TAB PO SCH (09:25)
[2017-03-18] MEDS: AMIODARONE 200 MG TAB PO SCH (09:26)
[2017-03-18] MEDS: ISOSORBIDE MONONITRATE(SR)30 MG TAB PO SCH (09:27)
[2017-03-18] MEDS: FERROUS SULFATE (EC) 325 MG TAB PO SCH ×3 (09:27→20:51)
[2017-03-18] MEDS: SPIRONOLACTONE 25 MG TAB PO SCH (09:29)
--- NOTE | 2017-03-18 11:34 | PN ---
DATE: 03/18/2017 SUBJECTIVE: The patient is stable, no acute events overnight. No fevers, chills, nausea/vomiting. OBJECTIVE: VITAL SIGNS: Blood pressure 107/67, respiration 18, pulse 63, temperature 99.1. HEENT: Head is normocephalic. NECK: Supple. HEART: Regular rate. LUNGS: Show diminished breath sounds at base, mild crackles. ABDOMEN: Soft, nontender to palpation. No rebound or guarding. EXTREMITIES: Negative for clubbing, cyanosis. Trace edema. DERMATOLOGIC: No rashes. MUSCULOSKELETAL: No joint effusions. NEUROLOGIC: No change in exam. MEDICATIONS: The patient's medications have been reviewed. LABORATORY DATA: Shows white count 7.6, hemoglobin 9.3, hematocrit 28.5, platelet count is 185. So dium 134, potassium 3.7, hematocrit 67, creatinine 2.14. ASSESSMENT AND PLAN: 1. Nonoliguric acute kidney injury on top of chronic kidney disease stage IIIB/IV, with a previous baseline creatinine 1.5 to 2 mg/dL. The etiology of acute kidney injury is secondary to cardiorenal syndrome. The patient is clinically improving with diuretic therapy. We will continue Bumex at cu rrent dose and continue supportive care, renally dose all meds. 2. Anemia. The patient is status post blood transfusion. Continue to monitor H and H levels. Giv e Epogen 10,000 units x1. 3. Acute congestive heart failure exacerbation. Continue current medical management. Follow up [facility] cardiology for recommendations. 4. Mineral bone disorder. Continue to monitor calcium and phosphorus levels. 5. Paroxysmal atrial fibrillation, currently sinus rhythm. Continue medical management. 6. Pleural effusion, status post thoracentesis. 7. Diabetes. Continue Accu-Cheks and insulin sliding scale. 8. Pulmonary hypertension. Dictated By: ANIL PERALES/LANG Conf#: [id number] DID#: [id number]
[2017-03-18] MEDS ORDERED: EPOETIN 10000 UNITS/1 ML INJ (ESRD) SC ONE (12:00)
--- NOTE | 2017-03-18 15:27 | PN ---
Date/Time of Note Date/Time of Note DATE: 03/18/17 TIME: 15:20 Assessment/Plan VTE Prophylaxis VTE Prophylaxis Intervention: SCD's Lines/Catheters IV Catheter Type (from Nrsg): [place] Assessment/Plan Assessment/Plan 1. Congestive heart failure, acute on chronic, systolic with LVEF 30-35% exacerbation. on diuretics, planed AICD on Saturday 2. Renal failure, acute on chronic. follow up with BMP 3. Severe cardiomyopathy, ejection fraction 35%. 4. Coronary artery disease. s/p PCI 5. History of paroxysmal atrial fibrillation, currently in sinus. on amiodarone 6. Anemia, 1 unit PRBC on 03/17/2017, on epogen 7. Pleural effusion, from CHF, right thoracentesis 1ith ryan=oval of 1000 cc fluid on 03/15/2017 Subjective 24 Hr Interval Summary Free Text/Dictation no chest pain or shortness of breath Exam/Review of Systems Vital Signs Vitals Vital Signs Date Time Temp Pulse Resp B/P Pulse Ox O2 Delivery O2 Flow Rate FiO2 03/18/17 12:09 98.5 60 19 99/54 98 03/17/17 21:52 Nasal Cannula 2.0 Intake and Output 03/17/17 03/17/17 03/18/17 15:00 23:00 07:00 Intake Total 1250 ml 500 ml Balance 1250 ml 500 ml Exam Constitutional: alert, oriented, well developed Psych: nl mood/affect, no complaints Head: atraumatic, normocephalic Eyes: EOMI, PERRL, nl conjunctiva, nl lids ENMT: nl external ears & nose, nl lips & teeth, nl nasal mucosa & septum Neck: non-tender, supple Respiratory: clear to auscultation, normal air movement, No congested cough, No crackles/rales, No diminished breath sounds, No intercostal retraction, No labored breathing, No other, No respirations, No tactile fremitus, No wheezing Cardiovascular: nl pulses, regular rate and rhythm, No S3, No S4, No bruits, No diastolic murmur, No edema, No gallop, No irregular rhythm, No jugular venous distention (JVD), No murmurs/extra sounds, No other, No rub, No systolic murmur Gastrointestinal: nl liver, spleen, non-tender, soft, No ascites, No bowel sounds, No distended, No firm, No hepatomegaly, No mass , No other, No rebound or guarding, No splenomegaly, No surgical scars, No tender Musculoskeletal: nl extremities to inspection Extremities: normal pulses, No calf tenderness, No clubbing, No cyanosis, No edema, No other, No palpable cord, No pitting pedal edema, No tenderness Neurological: MANAGER FILM II-XII intact, nl mental status, nl speech, nl strength Skin: nl turgor Lymph: nl lymph nodes Results Result Diagram: 03/18/17 0735 03/18/17 0735 Results 24 hrs Laboratory Tests Test 03/17/17 17:27 03/17/17 20:45 03/18/17 01:03 03/18/17 07:35 Bedside Glucose 178 152 178 White Blood Count 7.6 Red Blood Count 3.08 L Hemoglobin 9.3 L Hematocrit 28.5 L Mean Corpuscular Volume 92.5 Mean Corpuscular Hemoglobin 30.2 Mean Corpuscular Hemoglobin Concent 32.6 Red Cell Distribution Width 18.1 H Platelet Count 185 Mean Platelet Volume 11.8 H Neutrophils % 64.8 Lymphocytes % 20.1 Monocytes % 12.2 H Eosinophils % 1.6 Basophils % 0.8 Nucleated Red Blood Cells % 0.0 Neutrophils # 4.9 Lymphocytes # 1.5 Monocytes # 0.9 Eosinophils # 0.1 Basophils # 0.1 Nucleated Red Blood Cells # 0.0 Sodium Level 134 L Potassium Level 3.7 Chloride Level 95 L Carbon Dioxide Level 26 Anion Gap 17 H Blood Urea Nitrogen 67 H Creatinine 2.14 H Glucose Level 104 Calcium Level 8.7 Phosphorus Level 4.3 Magnesium Level 2.0 Test 03/18/17 08:49 03/18/17 12:55 Bedside Glucose 145 150 Medications Medications Current Medications Lorazepam (Ativan) 0.5 mg Q6H PRN IV ANXIETY; Start 03/14/17 at 00:00 Metoclopramide HCl (Reglan) 10 mg Q6H PRN IV NAUSEA AND/OR VOMITING; Start at 00:00 Nitroglycerin (Nitroglycerin (Sl Tab) 0.4 Mg) 1 tab Q5M PRN SL CHEST PAIN; Start 03/14/17 at 00:00 Acetaminophen (Tylenol Tab) 650 mg Q6H PRN PO PAIN LEVEL 1-3 OR FEVER Last administered on 03/16/17 05:20; Admin Dose 650 MG; Start 03/14/17 at 00:00 Acetaminophen/ Hydrocodone Bitart ([place] (5/325)) 1 tab Q6H PRN PO PAIN LEVEL 4 -6 Last administered on 03/16/17 16:46; Admin Dose 1 TAB; Start 03/14/17 at 00: 00 Acetaminophen/ Hydrocodone Bitart ([place] (5/325)) 2 tab Q6H PRN PO PAIN LEVEL 7 -10 Last administered on 03/15/17 17:49; Admin Dose 2 TAB; Start 03/14/17 at 00 :00 Famotidine (Pepcid) 20 mg DAILY PO Last administered on 03/18/17 09:25; Admin Dose 20 MG; Start 03/14/17 at 09:00 Allopurinol (Zyloprim) 300 mg DAILY PO Last administered on 03/18/17 09:25; Admin Dose 300 MG; Start 03/14/17 at 09:00 Amiodarone HCl (Cordarone) 100 mg DAILY PO Last administered on 03/18/17 09:26 ; Admin Dose 100 MG; Start 03/14/17 at 09:00 Carvedilol (Coreg) 1.5625 mg BID PO Last administered on 03/18/17 09:29; Admin Dose 1.5625 MG; Start 03/14/17 at 09:00 Ferrous Sulfate (Ferrous Sulfate (Ec)) 325 mg TID PO Last administered on 13:13; Admin Dose 325 MG; Start 03/14/17 at 09:00 Isosorbide Mononitrate (Imdur) 30 mg DAILY PO Last administered on 03/18/17 09 :27; Admin Dose 30 MG; Start 03/14/17 at 09:00 Miscellaneous Information 1 ea NOTE XX ; Start 03/14/17 at 00:17 Glucose (Glutose) 15 gm Q15M PRN PO DECREASED GLUCOSE; Start 03/14/17 at 00:17 Glucose (Glutose) 22.5 gm Q15M PRN PO DECREASED GLUCOSE; Start 03/14/17 at 00: 17 Dextrose (D50w Syringe) 25 ml Q15M PRN IV DECREASED GLUCOSE; Start 03/14/17 at 00:17 Dextrose (D50w Syringe) 50 ml Q15M PRN IV DECREASED GLUCOSE; Start 03/14/17 at 00:17 Glucagon (Glucagen) 1 mg Q15M PRN IM DECREASED GLUCOSE; Start 03/14/17 at 00:17 Glucose (Glutose) 15 gm Q15M PRN BUCCAL DECREASED GLUCOSE; Start 03/14/17 at 00 :17 Atorvastatin Calcium (Lipitor) 10 mg HS PO Last administered on 03/17/17 20:54 ; Admin Dose 10 MG; Start 03/14/17 at 21:00 Spironolactone (Aldactone) 25 mg DAILY PO Last administered on 03/18/17 09:29 ; Admin Dose 25 MG; Start 03/14/17 at 09:30 Diagnostic Test (Pha) (Accu-Chek) XX ; Start 03/18/17 at 02:00 Acetylcysteine (Nac) 600 mg BID PO ; Start 03/18/17 at 15:00 SULEMAN SHERWOOD MD Mar 18, 2017 15:27
--- NOTE | 2017-03-18 16:48 | PN ---
DATE: 03/18/2017 CARDIOLOGY FOLLOWUP PROGRESS NOTE SUBJECTIVE: Discussed with the staff, discussed with Dr. Casey and discussed with the patient's wif e. Symptoms reviewed. The patient remains in sinus rhythm. No chest pain or pressure. The patien t's shortness of breath has improved. No palpitation. Lower extremity has significantly improved. MEDICATIONS: Reviewed as per medication reconciliation, was personally reviewed. PHYSICAL EXAMINATION: VITAL SIGNS: Temperature 98.5, heart rate of 60, blood pressure 119/54, respiration rate of 19, sat urating 98%. HEENT: Normocephalic, atraumatic. Pupils are equal. CARDIOVASCULAR: Regular rate and rhythm. Systolic murmur. PULMONARY: With no wheezes with bilateral crackles at the base. GASTROINTESTINAL: Soft, nontender. EXTREMITIES: No significant lower extremity edema. NEUROLOGIC: Awake and alert. PSYCHIATRIC: Calm, pleasant. LABORATORY: Sodium 134, potassium 3.7, BUN of 67, creatinine 2.14, glucose 104. Mag is 2. WBC of 7.6, hemoglobin 9.3, platelets of 185. ASSESSMENT AND PLAN: 1. Congestive heart failure, acute on chronic systolic heart failure. 2. Severe cardiomyopathy, ejection fraction of 30% to 35% 3. Coronary artery disease with history of percutaneous coronary intervention. 4. Paroxysmal atrial fibrillation, currently in sinus rhythm. 5. Chronic kidney disease. 6. Severe anemia. 7. Hypertension, currently stable on the low side. RECOMMENDATIONS: Will start the patient on Mucomyst. Plan for biventricular implantable cardiovert er defibrillator placement tomorrow. The procedure discussed with the patient and his in detai l. These included infection, vascular complication, bleeding complication, PA, stroke, arrhythmia, , renal failure, perforations, pneumothorax, hemothorax, etc., discussed with the patient and t he family multiple times in the past as well in detail. The patient consented to procedure. We jose l start the patient on IV fluid tonight and keep him n.p.o. Transfusion to be given p.r.n. if hemog lobin is less than 9 tomorrow morning. Patient has been scheduled for the procedure tomorrow. I wi ll repeat a chest x-ray today. Dictated By: COLIN MANJARREZ/LANG Conf#: [id number] DID#: [id number] CC: PIPER CASEY MD;*[facility]*
[2017-03-18] MEDS: ACETYLCYSTEINE 600 MG CAP PO SCH ×2 (16:57→20:51)
--- NOTE | 2017-03-18 17:56 | RADRPT ---
PROCEDURE: XR Chest. CLINICAL INDICATION: chf TECHNIQUE: Single frontal view of the chest was obtained. COMPARISON: Chest x-ray from 03/15/2017 FINDINGS: There is stable mild cardiomegaly and mild congestive changes. The aortic arch is calcified. There are stable small bilateral pleural effusions with increased right basilar atelectasis versus i nfiltrate. There is a stable retrocardiac opacity due to atelectasis, infiltrate, and / or effusion. There is decreased osseous mineralization. IMPRESSION: Stable small bilateral pleural effusions with increased right basilar atelectasis versus infiltrate. Stable retrocardiac opacity. Osseous demineralization. RPTAT: EE Physician Josie Date Time Electronically viewed and signed by Wilbur Saha Physician on 03/18/2017 17:56 /
[2017-03-18] MEDS: ATORVASTATIN 10 MG TAB PO SCH (20:51)
[2017-03-19] VITALS (10 sets, daily range): BP systolic 106–137; BP diastolic 51–72; PULSE 60–64; RESP 18–20
[2017-03-19] MEDS: DEXTROSE 5%-0.9% NACL 1,000 ML IV SCH ×2 (00:36→11:00)
[2017-03-19] MEDS: ACCU-CHEK XX SCH (02:00)
[2017-03-19] MEDS: BUMETANIDE 1 MG TAB PO SCH ×2 (06:00→18:10)
[2017-03-19 06:14] LABS: ADD SCAN DIFF NO
[2017-03-19 06:30] LABS: BASOPHIL # 0.1 10^3/ul (0.0-0.1); BASOPHILS % 0.8 % (0.0-2.0); EOSINOPHILS # 0.2 10^3/ul (0.0-0.5); EOSINOPHILS % 2.3 % (0.0-7.0); HEMATOCRIT 28.2 % (42.0-52.0); HEMOGLOBIN 9.5 g/dl (14.0-18.0); LYMPHOCYTES # 1.3 10^3/ul (0.8-2.9); LYMPHOCYTES % 19.7 % (15.0-51.0); MEAN CORPUSCULAR HEMOGLOBIN 31.6 pg (29.0-33.0); MEAN CORPUSCULAR HGB CONC 33.7 g/dl (32.0-37.0); MEAN CORPUSCULAR VOLUME 93.7 fl (82.0-101.0); MEAN PLATELET VOLUME 11.9 fl (7.4-10.4); MONOCYTE # 0.8 10^3/ul (0.3-0.9); MONOCYTES % 13.1 % (0.0-11.0); NEUTROPHIL # 4.1 10^3/ul (1.6-7.5); NEUTROPHILS % 63.5 % (39.0-77.0); PLATELET COUNT 194 10^3/UL (140-415); RED BLOOD COUNT 3.01 10^6/ul (4.70-6.10); RED CELL DISTRIBUTION WIDTH 17.8 % (11.5-14.5); WHITE BLOOD COUNT 6.4 10^3/ul (4.8-10.8)
[2017-03-19 06:34] LABS: INR 1.26; PROTIME 15.9 Sec (12.2-14.2); PT RATIO 1.2
[2017-03-19 06:43] LABS: ALBUMIN 3.2 g/dl (3.3-4.9)
[2017-03-19 06:44] LABS: POTASSIUM 3.3 mmol/L (3.5-5.1)
[2017-03-19 06:46] LABS: BILIRUBIN,INDIRECT 0.5 mg/dl (0-1.1); BILIRUBIN,TOTAL 0.5 mg/dl (0.2-1.3); CREATININE 2.01 mg/dl (0.61-1.24); PHOSPHORUS 3.8 mg/dl (2.5-4.9)
[2017-03-19 06:47] LABS: ALBUMIN/GLOBULIN RATIO 0.74; CALCIUM 8.4 mg/dl (8.4-10.2); TOTAL PROTEIN 7.5 g/dl (6.1-8.1)
[2017-03-19] MEDS ORDERED: PROPOFOL 1000 MG INJ ONE (07:00)
[2017-03-19] MEDS ORDERED: CEFAZOLIN 1 GM/50 ML (PMX) IVPB ONE (07:00)
[2017-03-19] MEDS: INSULIN ASPART [NOVOLOG] 3 ML PEN SC SCH ×4 (08:00→20:30)
[2017-03-19] MEDS: ACETYLCYSTEINE 600 MG CAP PO SCH ×2 (09:00→20:29)
[2017-03-19] MEDS: FERROUS SULFATE (EC) 325 MG TAB PO SCH ×3 (09:00→20:29)
[2017-03-19] MEDS ORDERED: POTASSIUM CHLORIDE (SR) 20 MEQ TAB PO STA (10:12)
--- NOTE | 2017-03-19 11:19 | PN ---
DATE: 03/19/2017 SUBJECTIVE: The patient is stable. Planning an ICD placement today. No other events noted. No he moptysis, hematemesis or hematochezia. OBJECTIVE: VITAL SIGNS: Blood pressure 110/56, respirations 20, pulse 60, temperature 98.8. HEENT: Head is normocephalic. NECK: Supple. HEART: Regular rate. LUNGS: Show diminished breath sounds at the base. Positive rhonchi. ABDOMEN: Soft to palpation without rebound or guarding. EXTREMITIES: Negative for clubbing, cyanosis. Trace edema. DERMATOLOGIC: No rashes. MUSCULOSKELETAL: No joint effusions. NEUROLOGIC: No change in exam. MEDICATIONS: Reviewed. LABORATORY DATA: Shows white count 6.4, hemoglobin 9.5, hematocrit 28.2, platelet count is 194. So dium 135, potassium 3.2, chloride 96, BUN 60, creatinine 2.01. IMAGING: Chest x-ray reviewed. ASSESSMENT AND PLAN: 1. Nonoliguric acute kidney injury on top of chronic kidney disease stage IIIB/IV with a baseline c reatinine of 1.5 to 2 mg/dL. The etiology of acute kidney injury is secondary to cardiorenal syndro me. The patient's renal function has improved, appears to be stabilizing around previous baseline. We will continue current diuretic regimen. Really dose all meds. 2. Hypokalemia, replete potassium chloride. Continue Aldactone. 3. Anemia. Continue to monitor H and H levels. Continue Epogen as needed. 4. Acute congestive heart failure exacerbation, systolic and diastolic. The patient clinically imp roving. Continue current medical management. Patient is pending ICD placement. 5. Mineral bone disorder. Continue to monitor calcium and phosphorus levels. 6. Pleural effusion, status post thoracentesis. 7. Diabetes. Continue Accu-Cheks and sliding scale. 8. Pulmonary hypertension. 9. Paroxysmal atrial fibrillation, currently sinus rhythm. Continue medical management. Dictated By: ANIL PERALES/LANG Conf#: [id number] DID#: [id number]
[2017-03-19] MEDS ORDERED: POLYMYXIN/BACITRACIN 1L IRRIG IRR SCH (12:00)
[2017-03-19] MEDS ORDERED: LIDOCAINE 1%/EPI 30 ML INJ ONE (12:01)
[2017-03-19] MEDS ORDERED: LIDOCAINE 1% (MDV) 20 ML INJ ONE (12:01)
[2017-03-19] MEDS ORDERED: CEFAZOLIN 1 GM/50 ML (PMX) 50 ML IVPB ONE (12:02)
[2017-03-19] MEDS ORDERED: FENTAnyl 50 MCG/ML VIAL ONE (12:10)
[2017-03-19] MEDS ORDERED: SOD CHLORIDE 0.9% 1,000 ML ONE ×2 (13:23→15:02)
[2017-03-19] MEDS ORDERED: SOD CHLORIDE 0.9% 500 ML ONE (13:23)
[2017-03-19] MEDS ORDERED: IODIXANOL LOCM 100 ML BTL ONE (14:17)
--- NOTE | 2017-03-19 16:17 | PN ---
Date/Time of Note Date/Time of Note DATE: 03/19/17 TIME: 16:14 Assessment/Plan VTE Prophylaxis VTE Prophylaxis Intervention: SCD's Lines/Catheters IV Catheter Type (from Nrsg): Saline Lock Assessment/Plan Assessment/Plan 1. Congestive heart failure, acute on chronic, systolic with LVEF 30-35% exacerbation. on diuretics, AICD 03/19/2017 2. Renal failure, acute on chronic. stablefollow up with BMP 3. Severe cardiomyopathy, ejection fraction 35%. 4. Coronary artery disease. s/p PCI 5. History of paroxysmal atrial fibrillation, currently in sinus. on amiodarone 6. Anemia, 1 unit PRBC on 03/17/2017, 1 unit PRBC 03/19/2017 7. Pleural effusion, from CHF, right thoracentesis 1ith ryan=oval of 1000 cc fluid on 03/15/2017 Subjective 24 Hr Interval Summary Free Text/Dictation AICD implant Exam/Review of Systems Vital Signs Vitals Vital Signs Date Time Temp Pulse Resp B/P Pulse Ox O2 Delivery O2 Flow Rate FiO2 03/19/17 08:38 60 03/19/17 08:15 Nasal Cannula 2.0 03/19/17 08:10 98.8 20 110/56 96 Intake and Output 03/18/17 03/18/17 03/19/17 15:00 23:00 07:00 Intake Total 720 ml 600 ml Balance 720 ml 600 ml Exam Constitutional: alert, oriented, well developed Psych: nl mood/affect, no complaints Head: atraumatic, normocephalic Eyes: EOMI, nl conjunctiva, nl lids ENMT: nl external ears & nose, nl lips & teeth, nl nasal mucosa & septum Neck: non-tender, supple Respiratory: clear to auscultation, normal air movement, No congested cough, No crackles/rales, No diminished breath sounds, No intercostal retraction, No labored breathing, No other, No respirations, No tactile fremitus, No wheezing Cardiovascular: nl pulses, regular rate and rhythm, No S3, No S4, No bruits, No diastolic murmur, No edema, No gallop, No irregular rhythm, No jugular venous distention (JVD), No murmurs/extra sounds, No other, No rub, No systolic murmur Gastrointestinal: nl liver, spleen, non-tender, soft, No ascites, No bowel sounds, No distended, No firm, No hepatomegaly, No mass , No other, No rebound or guarding, No splenomegaly, No surgical scars, No tender Musculoskeletal: nl extremities to inspection Extremities: normal pulses, No calf tenderness, No clubbing, No cyanosis, No edema, No other, No palpable cord, No pitting pedal edema, No tenderness Neurological: MUSIC GRAPHER II-XII intact, nl mental status, nl speech, nl strength Skin: nl turgor Lymph: nl lymph nodes Results Result Diagram: 03/19/17 0536 03/19/17 0536 Results 24 hrs Laboratory Tests Test 03/18/17 18:03 03/18/17 20:39 03/19/17 02:14 03/19/17 05:36 Bedside Glucose 149 156 131 White Blood Count 6.4 Red Blood Count 3.01 L Hemoglobin 9.5 L Hematocrit 28.2 L Mean Corpuscular Volume 93.7 Mean Corpuscular Hemoglobin 31.6 Mean Corpuscular Hemoglobin Concent 33.7 Red Cell Distribution Width 17.8 H Platelet Count 194 Mean Platelet Volume 11.9 H Neutrophils % 63.5 Lymphocytes % 19.7 Monocytes % 13.1 H Eosinophils % 2.3 Basophils % 0.8 Nucleated Red Blood Cells % 0.0 Neutrophils # 4.1 Lymphocytes # 1.3 Monocytes # 0.8 Eosinophils # 0.2 Basophils # 0.1 Nucleated Red Blood Cells # 0.0 Prothrombin Time 15.9 H Prothrombin Time Ratio 1.2 INR International Normalized Ratio 1.26 Sodium Level 135 Potassium Level 3.3 L Chloride Level 96 L Carbon Dioxide Level 26 Anion Gap 16 Blood Urea Nitrogen 60 H Creatinine 2.01 H Glucose Level 143 Calcium Level 8.4 Phosphorus Level 3.8 Magnesium Level 2.0 Total Bilirubin 0.5 Direct Bilirubin 0.00 Indirect Bilirubin 0.5 Aspartate Amino Transf (AST/SGOT) 54 H Alanine Aminotransferase (ALT/SGPT) 35 Alkaline Phosphatase 217 H Total Protein 7.5 Albumin 3.2 L Globulin 4.30 H Albumin/Globulin Ratio 0.74 Test 03/19/17 08:18 Bedside Glucose 141 Medications Medications Current Medications Lorazepam (Ativan) 0.5 mg Q6H PRN IV ANXIETY; Start 03/14/17 at 00:00 Metoclopramide HCl (Reglan) 10 mg Q6H PRN IV NAUSEA AND/OR VOMITING; Start at 00:00 Nitroglycerin (Nitroglycerin (Sl Tab) 0.4 Mg) 1 tab Q5M PRN SL CHEST PAIN; Start 03/14/17 at 00:00 Acetaminophen (Tylenol Tab) 650 mg Q6H PRN PO PAIN LEVEL 1-3 OR FEVER Last administered on 03/16/17 05:20; Admin Dose 650 MG; Start 03/14/17 at 00:00 Acetaminophen/ Hydrocodone Bitart ([place] (5/325)) 1 tab Q6H PRN PO PAIN LEVEL 4 -6 Last administered on 03/16/17 16:46; Admin Dose 1 TAB; Start 03/14/17 at 00: 00 Acetaminophen/ Hydrocodone Bitart ([place] (5/325)) 2 tab Q6H PRN PO PAIN LEVEL 7 -10 Last administered on 03/15/17 17:49; Admin Dose 2 TAB; Start 03/14/17 at 00 :00 Famotidine (Pepcid) 20 mg DAILY PO Last administered on 03/18/17 09:25; Admin Dose 20 MG; Start 03/14/17 at 09:00 Allopurinol (Zyloprim) 300 mg DAILY PO Last administered on 03/18/17 09:25; Admin Dose 300 MG; Start 03/14/17 at 09:00 Amiodarone HCl (Cordarone) 100 mg DAILY PO Last administered on 03/18/17 09:26 ; Admin Dose 100 MG; Start 03/14/17 at 09:00 Carvedilol (Coreg) 1.5625 mg BID PO Last administered on 03/18/17 20:52; Admin Dose 1.5625 MG; Start 03/14/17 at 09:00 Ferrous Sulfate (Ferrous Sulfate (Ec)) 325 mg TID PO Last administered on 20:51; Admin Dose 325 MG; Start 03/14/17 at 09:00 Isosorbide Mononitrate (Imdur) 30 mg DAILY PO Last administered on 03/18/17 09 :27; Admin Dose 30 MG; Start 03/14/17 at 09:00 Miscellaneous Information 1 ea NOTE XX ; Start 03/14/17 at 00:17 Glucose (Glutose) 15 gm Q15M PRN PO DECREASED GLUCOSE; Start 03/14/17 at 00:17 Glucose (Glutose) 22.5 gm Q15M PRN PO DECREASED GLUCOSE; Start 03/14/17 at 00: 17 Dextrose (D50w Syringe) 25 ml Q15M PRN IV DECREASED GLUCOSE; Start 03/14/17 at 00:17 Dextrose (D50w Syringe) 50 ml Q15M PRN IV DECREASED GLUCOSE; Start 03/14/17 at 00:17 Glucagon (Glucagen) 1 mg Q15M PRN IM DECREASED GLUCOSE; Start 03/14/17 at 00:17 Glucose (Glutose) 15 gm Q15M PRN BUCCAL DECREASED GLUCOSE; Start 03/14/17 at 00 :17 Atorvastatin Calcium (Lipitor) 10 mg HS PO Last administered on 03/18/17 20:51 ; Admin Dose 10 MG; Start 03/14/17 at 21:00 Spironolactone (Aldactone) 25 mg DAILY PO Last administered on 03/18/17 09:29 ; Admin Dose 25 MG; Start 03/14/17 at 09:30 Diagnostic Test (Pha) (Accu-Chek) 1 02 XX ; Start 03/18/17 at 02:00 Acetylcysteine (Nac) 600 mg BID PO Last administered on 03/18/17 20:51; Admin Dose 600 MG; Start 03/18/17 at 15:00 SULEMAN SHERWOOD MD Mar 19, 2017 16:17
[2017-03-19] MEDS ORDERED: ACETAMINOPHEN 325 MG TAB PO PRN (16:30)
--- NOTE | 2017-03-19 17:31 | SP ---
DATE OF PROCEDURE: 03/19/2017 NAME OF PROCEDURE: 1. Implantation of biventricular implantable cardioverter defibrillator using a right atrial and ri ght ventricular implantable cardioverter defibrillator lead as well as the left ventricular lead. 2. Selective coronary sinus venogram. 3. Defibrillator threshold testing. CLINICAL INDICATIONS: This is a 66-year-old gentleman with history of ischemic cardiomyopathy, ejec tion fraction about 30% to 35%, with recurrent admissions for CHF with a class 3 congestive heart fa ilure. Abnormal EKG with intraventricular conduction delay, incomplete left bundle branch block, QR S with 130 milliseconds on optimal medical therapy. He was recommended to undergo biventricular ICD placement. The patient meets the ____ criteria as well as MADIT II criteria for ICD placement. DESCRIPTION OF PROCEDURE: Written informed consent was discussed with the patient [facility] in detail. The patient brought to the laborer [place] and placed in supine posit ion in chest prepped and draped in normal sterile fashion. The patient underwent anesthesia by anes thesiologist. AC groove area was anesthetized with 1% lidocaine with epinephrine. A 4 cm incision was made in the AC groove area prepped and draped and dissection was carried out. A small cephalic vein was identified. It was cannulated and a BMW wire was advanced through it. Micropuncture needl e and sheath was placed over it. I changed it over a J-wire. I tried to advance the 6-Armenian sheat h into it with difficulty due to angulation as well as a small vessel. Used a dilator and used a lo ng stiff Oglesby wire. I advanced the Oglesby wire and advanced the 6 Armenian sheath. Another wire was a dvanced through and the sheath was removed and the 8-Armenian sheath was placed in the cephalic vein a nd subclavian vein. Then the left subclavian vein was cannulated using a micropuncture needle. I h ad difficulty accessing the vein. Ultrasound-guided and fluoroscopy-guided was used and able to acc ess the vein and immediately venous blood flow was noted. Wire was advanced into the inferior vena cava. The cephalic vein sheath was changed to an 8-Armenian sheath. A right ventricular lead was alyssa kaylene and advanced under direct fluoroscopy into the right ventricular apex. Once in a good position, it was screwed into place. Threshold was checked with stimulation at 10 volts. Sheath was peeled away and a second 6-Armenian sheath was placed over the second wire into the left cephalic vein into t he subclavian vein. Right atrial lead was placed in right atrial appendage. Once a good position w as made, it was screwed into place. Threshold was less than 10 mm with injury good injury pattern. Both sheaths were peeled away and we used a 0 Ethibond. Leads were tied down. At this time, we pr oceeded with placement of the LV lead. An 9.5 sheath was placed over the wire into the subclavian v ein. A gfwgfh-zv-zjwim was made around it. A Domgeo[employer]ru guiding catheter was used and advan kaylene and able to cross and place inside the coronary sinus. A sharp angulation was noted at the begi nning of coronary sinus. The catheter was advanced. A coronary sinus venogram was performed with placement of the balloon-tipped catheter. Wire was advanced and placed in the lateral leads. I tri ed to advance the lead into it, however, due to multiple sharp angulations, the catheter got dried out and could not be advanced. I advanced and engaged back into the coronary sinus. I used differe nt techniques including using a different inner catheter. Finally with the angled inner catheter, I advanced the deep throat mechanical catheter into the lateral lead of the coronary sinus and advanc ed into it. However, a large amount of tension was seen in the catheter and with peeling away of ou ter catheter, the sheath got pulled out and the leads were pulled out again. I used different techn iques and to get it back into the coronary sinus and using a zo wire; however, could not advance the lead into the appropriate branch of the coronary sinus. Finally, I used a [employer]hele inner cathet er with angulation and with deep throat into it, I was able to advance the lead into the appropriate position. Both the inner and outer sheaths were removed and peeled away. The threshold was checke d, showed appropriate threshold in the lead LV lead. The 9.5 sheath from the subclavian was also re moved and a rgahwb-yi-bsrle was made around it. All leads were tied down. The pocket was irrigated and created under the submuscular layer. Irrigation was done. These were connected to the device and again threshold was checked through the device. Then, the pocket was irrigated again and the de vice was connected to the lead and the device was placed into the pocket. DFT testing was performed at this time. The external defibrillator 1 joule was tested. Then, V testing was performed shock on T was given at 20 joules and no VT was seen consistent with a threshold being below that. Thromb in was injected into the pocket to maintain better hemostasis. The device was tied with 0 Ethibond. Pocket was closed with multiple 2-0 Vicryl interrupted and 2 layers of 3-0 Vicryl. Series of bloo d pressure were applied. The patient tolerated procedure well with no complications. The patient w as transferred in stable condition. IMMEDIATE COMPLICATIONS: None. - TOTAL CONTRAST USED: 35 mL of Visipaque. DEVICE INFORMATION: The device itself is a [employer] DIRECTOR OF P[employer] PERSONNEL PROGRAM-D Quadra Assura MP BIV-ICD. Right atrial l ead is [employer]hele Tendril lead. Right ventricular lead is Fortify Assura ICD lead. LV lead [employer]hele Quartet leads. Thresholds were as follows, P-wave amplitude was 2.6, threshold 1.5, impedance of 40 0. RV amplitude of 4.1, threshold 0.75 at 0.5. Impedance of 540. LV threshold 1.25 at 0.5 millise cond, impedance 340. High voltage was 31. The device was set at lower rate of 60, upper rate of 12 0. Tachy zone was set as follows: 1. Monitor zone was set at 150 to 172. 2. VT zone was set 172 to 200. 3. The VT zone was set of more than 200. CONCLUSION: Successful implantation of biventricular ICD and DFT testing. Dictated By: COLIN MANJARREZ/LANG Conf#: [id number] DID#: [id number]
--- NOTE | 2017-03-19 17:31 | RADRPT ---
PROCEDURE: XR Chest. CLINICAL INDICATION: Cardiac pacing device placement TECHNIQUE: Single AP view of the chest were obtained COMPARISON: 03/18/2017 FINDINGS: The heart is moderately enlarged. The pulmonary vasculature are enlarged bilaterally. The aorta dem onstrates atherosclerotic calcifications. There is a moderate opacity of the right lower lung which appears stable. Mild left basilar opacity has diminished. Right-sided pleural effusion appears unchanged in the left-sided effusion appears diminished from prior exam. Degenerative changes are seen within the thoracic spine. There is no acute osseous abnormality. There is placement of a new left-sided cardiac pacing device with leads are visible extending into t he right atrium, right ventricle, and into the coronary sinus. IMPRESSION: There is placement of a left-sided cardiac pacing device with leads extending to the right atrium, r ight ventricle and coronary sinus. Stable stable cardiomegaly and moderate vascular congestion with diminished left-sided pleural effus ion and stable right-sided pleural effusion. Opacity in the right lung base is unchanged and the opa [place] of the left lung base is diminished. RPTAT: AA .Gloria Mortensen MD, Date Time Electronically viewed and signed by .Gloria Mortensen MD, MD on 03/19/2017 17:31 .J/
[2017-03-19] MEDS: AMIODARONE 200 MG TAB PO SCH (18:12)
[2017-03-19] MEDS: FAMOTIDINE 20 MG TAB PO SCH (18:12)
[2017-03-19] MEDS: ISOSORBIDE MONONITRATE(SR)30 MG TAB PO SCH (18:13)
--- NOTE | 2017-03-19 18:19 | PN ---
DATE: 03/19/2017 CARDIOLOGY FOLLOWUP SUBJECTIVE: The patient ____ following ICD. The patient underwent biventricular AICD placement une ventful. ____. Has mild chest wall tenderness, otherwise remains stable. MEDICATIONS: Reviewed, which include: 1. Ancef. 2. Mucomyst: 3. Insulin. 4. Lipitor. 5. Aldactone. 6. Pepcid. 7. Amiodarone 100 daily. 8. Coreg 1.5625. 9. Imdur. 10. Bumex. PHYSICAL EXAMINATION: VITAL SIGNS: Temperature 98, heart rate of 60 and paced, blood pressure 110/56, respiratory rate of 20. Saturating 96%. HEENT: Normocephalic, atraumatic. In no acute distress. Eyes: Pupils are equal. NECK: Positive JVD. CARDIOVASCULAR: Regular rate and rhythm, systolic murmur. CHEST: Status post ICD with pressure dressing on it. PULMONARY: With no wheezes. GASTROINTESTINAL: Soft, nontender. EXTREMITIES: With trivial lower extremity edema. NEUROLOGIC: Awake and responds appropriately. PSYCHIATRIC: Appears to be calm and pleasant. IMAGING: Chest x-ray is still pending. LABORATORY: WBC of 6.4, hemoglobin 9.5, platelet 194. Sodium 135, potassium 3.3, BUN of 60, creati nine 2.01, glucose 143. ASSESSMENT AND PLAN: 1. Congestive heart failure, acute on chronic, with systolic dysfunction. 2. Severe ischemic cardiomyopathy, ejection fraction of 30 to 35%. 3. Abnormal EKG with ____ incomplete left bundle branch block. 4. Status post biventricular AICD placement. 5. Paroxysmal atrial fibrillation. 6. Sinus bradycardia. 7. Hypertension. 8. Liver disease. 9. Chronic kidney disease. RECOMMENDATIONS: We will continue with the current cardiac care. Chest x-ray is still pending. We will follow up on it. Antibiotic will be continued for now. Wound care will be continued. Dictated By: COLIN BERGERON MD AV/LANG Conf#: [id number] DID#: [id number] CC: PIPER RECINOS MD;*EndCC*
[2017-03-19] MEDS: SPIRONOLACTONE 25 MG TAB PO SCH (18:24)
[2017-03-19] MEDS: ALLOPURINOL 300 MG TAB PO SCH (18:24)
[2017-03-19] MEDS: morphine 2 MG INJ IV PRN (19:10)
[2017-03-19] MEDS: HYDROCODONE/APAP (5/325) TAB PO PRN (19:53)
[2017-03-19] MEDS: ATORVASTATIN 10 MG TAB PO SCH (20:28)
[2017-03-19] MEDS: CEFAZOLIN 1 GM/50 ML (PMX) 50 ML IVPB SCH (22:12)
--- NOTE | 2017-03-19 22:14 | RADRPT ---
Vent Rate: 60 bpm RR Interval: 0 msec TN Interval: 144 msec QRS Duration: 190 msec QT Interval: 588 msec QTC Interval: 588 msec P-R-T [place]: 0 - 0 - 75 degrees AV sequential or dual chamber electronic pacemaker Electronically Signed By: Timbo Raygoza [id number]
[2017-03-19] MEDS: ARTIFICIAL TEARS 15 ML OPH BOTH EYES SCH (23:53)
[2017-03-20] VITALS (11 sets, daily range): BP systolic 100–112; BP diastolic 62–69; PULSE 60–79; RESP 16–21
[2017-03-20] MEDS: ACCU-CHEK XX SCH (02:00)
[2017-03-20] MEDS: morphine 2 MG INJ IV PRN (02:55)
[2017-03-20] MEDS: CEFAZOLIN 1 GM/50 ML (PMX) 50 ML IVPB SCH ×2 (05:30→13:10)
[2017-03-20] MEDS: HYDROCODONE/APAP (5/325) TAB PO PRN ×2 (05:30→21:22)
[2017-03-20] MEDS: BUMETANIDE 1 MG TAB PO SCH ×2 (05:30→17:55)
[2017-03-20 07:56] LABS: ADD SCAN DIFF NO
[2017-03-20] MEDS: INSULIN ASPART [NOVOLOG] 3 ML PEN SC SCH ×4 (08:00→21:00)
[2017-03-20 08:02] LABS: HEMATOCRIT 30.7 % (42.0-52.0); HEMOGLOBIN 10.1 g/dl (14.0-18.0); MEAN CORPUSCULAR HEMOGLOBIN 30.9 pg (29.0-33.0); MEAN CORPUSCULAR HGB CONC 32.9 g/dl (32.0-37.0); MEAN CORPUSCULAR VOLUME 93.9 fl (82.0-101.0); MEAN PLATELET VOLUME 11.6 fl (7.4-10.4); PLATELET COUNT 197 10^3/UL (140-415); RED BLOOD COUNT 3.27 10^6/ul (4.70-6.10); RED CELL DISTRIBUTION WIDTH 17.9 % (11.5-14.5); WHITE BLOOD COUNT 8.8 10^3/ul (4.8-10.8)
[2017-03-20 08:23] LABS: CALCIUM 8.4 mg/dl (8.4-10.2); CREATININE 1.61 mg/dl (0.61-1.24); PHOSPHORUS 4.4 mg/dl (2.5-4.9); POTASSIUM 3.7 mmol/L (3.5-5.1)
[2017-03-20 08:27] LABS: ALBUMIN 3.1 g/dl (3.3-4.9); ALBUMIN/GLOBULIN RATIO 0.81; BILIRUBIN,DIRECT 0.2 mg/dl (0.00-0.20); BILIRUBIN,INDIRECT 0.6 mg/dl (0-1.1); BILIRUBIN,TOTAL 0.8 mg/dl (0.2-1.3); CALCIUM 8.4 mg/dl (8.4-10.2); CREATININE 1.54 mg/dl (0.61-1.24); POTASSIUM 3.9 mmol/L (3.5-5.1); TOTAL PROTEIN 6.9 g/dl (6.1-8.1)
[2017-03-20] MEDS: FERROUS SULFATE (EC) 325 MG TAB PO SCH ×3 (08:50→21:16)
[2017-03-20] MEDS: FAMOTIDINE 20 MG TAB PO SCH (08:50)
[2017-03-20] MEDS: ACETYLCYSTEINE 600 MG CAP PO SCH ×2 (08:50→21:16)
[2017-03-20] MEDS: SPIRONOLACTONE 25 MG TAB PO SCH (08:50)
[2017-03-20] MEDS: ALLOPURINOL 300 MG TAB PO SCH (08:50)
[2017-03-20] MEDS: ARTIFICIAL TEARS 15 ML OPH BOTH EYES SCH ×4 (08:51→21:16)
[2017-03-20] MEDS: AMIODARONE 200 MG TAB PO SCH (08:51)
--- NOTE | 2017-03-20 10:10 | PN ---
DATE: 03/20/2017 CARDIOLOGY FOLLOWUP SUBJECTIVE: The patient with no chest pain or pressure. No palpitations. Feeling better. Discuss ed with his . Discussed with the staff. Rhythm strip was reviewed. The patient remains in davidson tricular paced rhythm. Denies any PND or orthopnea. MEDICATIONS: Reviewed. PHYSICAL EXAMINATION: VITAL SIGNS: Temperature 99.4, heart rate of 70, blood pressure 110/62, respiratory rate of 21, sat urating 94%. HEENT: Normocephalic, atraumatic. Thin gentleman in no acute distress. Pupils are equal. NECK: Supple. Positive JVD. CARDIOVASCULAR: Regular rate and rhythm, systolic murmur. CHEST WALL: Left-sided biventricular ICD placement. No bleeding, no hematoma noted. PULMONARY: Mild rhonchi at the bases. GASTROINTESTINAL: Soft, nontender. EXTREMITIES: Trivial edema. NEUROLOGIC: Awake and alert. Responds appropriately. PSYCHIATRIC: Appears to be calm and pleasant. LABORATORY DATA: WBC 8.8, hemoglobin 10.1, platelet 197. Sodium 134, potassium 3.9, BUN of 47, cre atinine 1.54, glucose of 82. at 12,400. ASSESSMENT AND PLAN: 1. Congestive heart failure. 2. Ischemic cardiomyopathy. 3. Status post biventricular ICD. 4. Chronic kidney disease. 5. History of paroxysmal atrial fibrillation, currently in sinus rhythm. RECOMMENDATIONS: We will continue with the amiodarone. Increase the Coreg to 3.125 p.o. b.i.d. now that he has a defibrillator. Continue with the current dose of diuretics. Statins will be continu ed. Discharge planning for tomorrow. I will stop the isosorbide since he has no angina at this poi nt. Biventricular ICD was interrogated and personally reviewed, which showed normal function. Thre shold in the A is 1, at the RV is 0.5 and at the LV is 1.25, all at 0.5 msec. Impedance all within normal limits. The patient has been scheduled to follow up with me as an outpatient for post-hospit al followup and ICD check on 03/28/2016 at 1:00 p.m. This information was given to the family an fortune. Dictated By: COLIN MANJARREZ/LANG Conf#: [id number] DID#: [id number] CC: ANIL CONNOR DO; PIPER RECINOS MD;*End*
[2017-03-20] MEDS: CLOPIDOGREL 75 MG TAB PO SCH (10:34)
--- NOTE | 2017-03-20 11:22 | PN ---
DATE: 03/20/2017 SUBJECTIVE: The patient is stable. Patient in ICU, placed yesterday, tolerated well without any co mplications. No events noted overnight. OBJECTIVE: VITAL SIGNS: Blood pressure 110/60, respiration 21, pulse 69, temperature 99.4. HEENT: Head is normocephalic. NECK: Supple. HEART: Regular rate. MUSCULOSKELETAL: The patient has dressing over his left chest wall, clean, dry and intact. ABDOMEN: Soft, nontender to palpation. LUNGS: Show diminished breath sounds at base, otherwise clear. EXTREMITIES: Negative for clubbing, cyanosis. Trace edema. DERMATOLOGIC: No rashes. MUSCULOSKELETAL: No joint effusions. NEUROLOGIC: No focal deficits. MEDICATIONS: The patient's medications have been reviewed. LABORATORY DATA: Showed sodium 134, BUN 47, creatinine 1.54. White count 8.8, hemoglobin 10.1, hem atocrit 30.7, platelet count was 197. ASSESSMENT AND PLAN: 1. Nonoliguric acute kidney injury on top of chronic kidney disease stage IIIB/IV with previous [facility] creatinine of 1.5 to 2 mg/dL. The etiology of acute kidney injury secondary to cardiorenal sy ndrome. The patient's renal function has improved and stabilized. Continue current treatment plan. Continue current diuretic regimen. 2. Mild hyponatremia. Continue to monitor and limit free water intake. 3. Anemia. Continue to monitor H and H levels. 4. Acute congestive heart failure exacerbation. The patient clinically improving. Continue curren t diuretic regimen. The patient is status post implantable cardioverter-defibrillator placement. 5. Mineral bone disorder. Continue to monitor calcium and phosphorus levels. 6. Pleural effusion, status post thoracentesis. 7. Diabetes, continue current Accu-Cheks, insulin sliding scale. 8. Pulmonary hypertension. 9. Paroxysmal atrial fibrillation. Currently in sinus rhythm. Continue medical management. 10. Status post hyperkalemia. Dictated By: ANIL PERALES/LANG Conf#: [id number] DID#: [id number]
[2017-03-20 11:40] LABS: EOSINOPHILS # 0.2 10^3/ul (0.0-0.5); MONOCYTE # 1.1 10^3/ul (0.3-0.9); NEUTROPHIL # 6.6 10^3/ul (1.6-7.5)
[2017-03-20] MEDS: ACETAMINOPHEN 325 MG TAB PO PRN (12:24)
--- NOTE | 2017-03-20 14:46 | PN ---
Date/Time of Note Date/Time of Note DATE: 03/20/17 TIME: 14:27 Assessment/Plan VTE Prophylaxis VTE Prophylaxis Intervention: contraindicated VTE Contraindication Reason: bleeding (hemoptysis) Lines/Catheters IV [facility] Saline Lock Assessment/Plan Chief Complaint/Hosp Course Assessment/Plan 1. Congestive heart failure, acute on chronic, systolic with LVEF 30-35% exacerbation. on diuretics, AICD 03/19/2017 2. Renal failure, acute on chronic. stable follow up with BMP, nephro following 3. Severe cardiomyopathy, ejection fraction 35%. 4. Coronary artery disease. s/p PCI, cardvedilol increased as per cardio 5. History of paroxysmal atrial fibrillation, currently in sinus. on amiodarone 6. Anemia, 1 unit PRBC on 03/17/2017, 1 unit PRBC 03/19/2017, hgb today is 10.1 continue to follow. 7. Pleural effusion, from CHF, right thoracentesis 1ith removal of 1000 cc fluid on 03/15/2017 8. hemoptysis - patient reports hemoptysis x 3 today. Scant bloody sputum scene on bedside tissue paper. Patient denies previous episodes of hemoptysis. Currently on plavix. As patient is clinically stable at this time will not adjust any medications, however will consult pulmonary for further assessment of hemoptysis. Repeat chest xray. Problems: Subjective 24 Hr Interval Summary Free Text/Dictation Patient states he has been coughing today about 3 times and producing blood. This did not happen before. He felt like he coughed up a clot as well. Denies any shortness of breath. Respiratory: other (hemoptysis) Exam/Review of Systems Vital Signs Vitals Vital Signs Date Time Temp Pulse Resp B/P Pulse Ox O2 Delivery O2 Flow Rate FiO2 03/20/17 12:19 69 03/20/17 11:59 97.8 16 112/69 91 03/19/17 20:00 Nasal Cannula 2.0 Intake and Output 03/19/17 03/19/17 03/20/17 15:00 23:00 07:00 Intake Total 350 ml 50 ml Balance 350 ml 50 ml Exam Scant blood visible on bedside tissue Constitutional: alert, oriented Head: atraumatic, normocephalic Neck: non-tender, supple Respiratory: crackles/rales (mild crackles at the right base) Cardiovascular: No edema Gastrointestinal: non-tender, soft Musculoskeletal: other (mild chest wall tenderness at surgical site ) Extremities: No edema Results Result Diagram: 03/20/1770403/20/17 0705 Results 24 hrs Laboratory Tests Test 03/19/17 17:19 03/19/17 20:27 03/20/17 07:05 03/20/17 08:18 Bedside Glucose 135 154 81 White Blood Count 8.8 # Red Blood Count 3.27 L Hemoglobin 10.1 L Hematocrit 30.7 L Mean Corpuscular Volume 93.9 Mean Corpuscular Hemoglobin 30.9 Mean Corpuscular Hemoglobin Concent 32.9 Red Cell Distribution Width 17.9 H Platelet Count 197 Mean Platelet Volume 11.6 H Neutrophils % 75.0 Lymphocytes % 11.0 L Monocytes % 12.0 H Eosinophils % 2.0 Neutrophils # 6.6 Lymphocytes # 1.0 Monocytes # 1.1 H Eosinophils # 0.2 Differential Comment MANUAL DIFF Sodium Level 134 L Potassium Level 3.9 Chloride Level 102 Carbon Dioxide Level 21 Anion Gap 15 Blood Urea Nitrogen 47 H Creatinine 1.54 H Glucose Level 82 Calcium Level 8.4 Phosphorus Level 4.4 Magnesium Level 2.0 Total Bilirubin 0.8 Direct Bilirubin 0.20 # Indirect Bilirubin 0.6 Aspartate Amino Transf (AST/SGOT) 57 H Alanine Aminotransferase (ALT/SGPT) 42 Alkaline Phosphatase 240 H B-Type Natriuretic Peptide 27262 H Total Protein 6.9 Albumin 3.1 L Globulin 3.80 H Albumin/Globulin Ratio 0.81 Test 03/20/17 12:23 Bedside Glucose 126 Medications Medications Current Medications Lorazepam (Ativan) 0.5 mg Q6H PRN IV ANXIETY; Start 03/14/17 at 00:00 Metoclopramide HCl (Reglan) 10 mg Q6H PRN IV NAUSEA AND/OR VOMITING; Start at 00:00 Nitroglycerin (Nitroglycerin (Sl Tab) 0.4 Mg) 1 tab Q5M PRN SL CHEST PAIN; Start 03/14/17 at 00:00 Acetaminophen (Tylenol Tab) 650 mg Q6H PRN PO PAIN LEVEL 1-3 OR FEVER Last administered on 03/20/17t 12:24; Admin Dose 650 MG; Start 03/14/17 at 00:00 Acetaminophen/ Hydrocodone Bitart ([place] (5/325)) 1 tab Q6H PRN PO PAIN LEVEL 4 -6 Last administered on 03/16/17 16:46; Admin Dose 1 TAB; Start 03/14/17 at 00: 00 Acetaminophen/ Hydrocodone Bitart ([place] (5/325)) 2 tab Q6H PRN PO PAIN LEVEL 7 -10 Last administered on 03/20/17 05:30; Admin Dose 2 TAB; Start 03/14/17 at 00 :00 Famotidine (Pepcid) 20 mg DAILY PO Last administered on 03/20/17 08:50; Admin Dose 20 MG; Start 03/14/17 at 09:00 Allopurinol (Zyloprim) 300 mg DAILY PO Last administered on 03/20/17 08:50; Admin Dose 300 MG; Start 03/14/17 at 09:00 Amiodarone HCl (Cordarone) 100 mg DAILY PO Last administered on 03/20/17 08:51 ; Admin Dose 100 MG; Start 03/14/17 at 09:00 Ferrous Sulfate (Ferrous Sulfate (Ec)) 325 mg TID PO Last administered on 12:24; Admin Dose 325 MG; Start 03/14/17 at 09:00 Miscellaneous Information 1 ea NOTE XX ; Start 03/14/17 at 00:17 Glucose (Glutose) 15 gm Q15M PRN PO DECREASED GLUCOSE; Start 03/14/17 at 00:17 Glucose (Glutose) 22.5 gm Q15M PRN PO DECREASED GLUCOSE; Start 03/14/17 at 00: 17 Dextrose (D50w Syringe) 25 ml Q15M PRN IV DECREASED GLUCOSE; Start 03/14/17 at 00:17 Dextrose (D50w Syringe) 50 ml Q15M PRN IV DECREASED GLUCOSE; Start 03/14/17 at 00:17 Glucagon (Glucagen) 1 mg Q15M PRN IM DECREASED GLUCOSE; Start 03/14/17 at 00:17 Glucose (Glutose) 15 gm Q15M PRN BUCCAL DECREASED GLUCOSE; Start 03/14/17 at 00 :17 Atorvastatin Calcium (Lipitor) 10 mg HS PO Last administered on 03/19/17 20:28 ; Admin Dose 10 MG; Start 03/14/17 at 21:00 Spironolactone (Aldactone) 25 mg DAILY PO Last administered on 03/20/17 08:50 ; Admin Dose 25 MG; Start 03/14/17 at 09:30 Diagnostic Test (Pha) (Accu-Chek) 1 ea 02 XX ; Start 03/18/17 at 02:00 Acetylcysteine (Nac) 600 mg BID PO Last administered on 03/20/17 08:50; Admin Dose 600 MG; Start 03/18/17 at 15:00 Acetaminophen (Tylenol Tab) 650 mg Q4H PRN PO NON-CARDIAC PAIN LEVEL (1-3); Start 03/19/17 at 16:30 Morphine Sulfate 1 mg 1 mg Q1H PRN IV PAIN Last administered on 03/20/17 02:55 ; Admin Dose 1 MG; Start 03/19/17 at 16:30 Cefazolin Sodium (Ancef 1 Gm/50 ml (Pmx)) 50 ml @ 100 mls/hr Q8 IVPB Last administered on 03/20/17 13:10; Admin Dose 100 MLS/HR; Start 03/19/17 at 22:00 ; Stop 03/20/17 at 14:29 Eye Lubricant (Artificial Tears Oph) 2 drop QID BOTH EYES Last administered on 03/20/17 12:24; Admin Dose 2 DROP; Start 03/19/17 at 22:28 Carvedilol (Coreg) 3.125 mg BID PO Last administered on 03/20/17 09:02; Admin Dose 3.125 MG; Start 03/20/17 at 09:00 Clopidogrel Bisulfate (plaVIX) 75 mg DAILY PO Last administered on 03/20/17 10 :34; Admin Dose 75 MG; Start 03/20/17 at 10:00 JULIO SAVAGE Mar 20, 2017 14:37
[2017-03-20] MEDS: ATORVASTATIN 10 MG TAB PO SCH (21:16)
[2017-03-21] VITALS (12 sets, daily range): BP systolic 103–141; BP diastolic 53–81; PULSE 60–66; RESP 16–65
[2017-03-21] MEDS: ACCU-CHEK XX SCH (01:40)
[2017-03-21] MEDS: BUMETANIDE 1 MG TAB PO SCH ×2 (06:11→17:16)
--- NOTE | 2017-03-21 06:19 | RADRPT ---
PROCEDURE: XR Chest. CLINICAL INDICATION: Atelectasis TECHNIQUE: An AP view of the chest was obtained. COMPARISON: Chest x-ray dated 03/19/2017 FINDINGS: There is a left subclavian biventricular pacemaker AICD. There is prominence of the interstitial and central pulmonary vascular markings with small bilater al pleural effusions. No focal airspace opacification or pneumothorax is seen. The cardiomediastin al silhouette is mildly enlarged . Calcifications are seen within the aortic arch. The osseous str uctures demonstrate senescent changes. IMPRESSION: 1. Findings suggestive of pulmonary vascular congestion with small bilateral pleural effusions. Marcy ng aeration is improved when compared to the prior examination. 2. Mild cardiomegaly and aortic atherosclerosis. 3. Left subclavian biventricular AICD. RPTAT: HH .Mohini Nam MD, MD Date Time Electronically viewed and signed by .Mohini Nam MD, MD on 03/21/2017 06:19 .G/
[2017-03-21] MEDS: HYDROCODONE/APAP (5/325) TAB PO PRN ×2 (07:04→16:30)
[2017-03-21 07:58] LABS: ADD SCAN DIFF NO
[2017-03-21 08:06] LABS: BASOPHILS % 0.4 % (0.0-2.0); EOSINOPHILS # 0.1 10^3/ul (0.0-0.5); EOSINOPHILS % 1.3 % (0.0-7.0); HEMATOCRIT 31.6 % (42.0-52.0); HEMOGLOBIN 10.3 g/dl (14.0-18.0); LYMPHOCYTES # 1.4 10^3/ul (0.8-2.9); LYMPHOCYTES % 16.6 % (15.0-51.0); MEAN CORPUSCULAR HEMOGLOBIN 30.8 pg (29.0-33.0); MEAN CORPUSCULAR HGB CONC 32.6 g/dl (32.0-37.0); MEAN CORPUSCULAR VOLUME 94.6 fl (82.0-101.0); MEAN PLATELET VOLUME 11.4 fl (7.4-10.4); MONOCYTE # 0.9 10^3/ul (0.3-0.9); MONOCYTES % 10.8 % (0.0-11.0); NEUTROPHIL # 5.9 10^3/ul (1.6-7.5); NEUTROPHILS % 70.3 % (39.0-77.0); PLATELET COUNT 195 10^3/UL (140-415); RED BLOOD COUNT 3.34 10^6/ul (4.70-6.10); RED CELL DISTRIBUTION WIDTH 17.8 % (11.5-14.5); WHITE BLOOD COUNT 8.3 10^3/ul (4.8-10.8)
[2017-03-21 08:31] LABS: ALBUMIN 3.5 g/dl (3.3-4.9); ALBUMIN/GLOBULIN RATIO 0.85; BILIRUBIN,DIRECT 0.1 mg/dl (0.00-0.20); BILIRUBIN,INDIRECT 0.5 mg/dl (0-1.1); BILIRUBIN,TOTAL 0.6 mg/dl (0.2-1.3); CALCIUM 8.8 mg/dl (8.4-10.2); CREATININE 2.09 mg/dl (0.61-1.24); TOTAL PROTEIN 7.6 g/dl (6.1-8.1)
[2017-03-21] MEDS: FAMOTIDINE 20 MG TAB PO SCH (08:37)
[2017-03-21] MEDS: ACETYLCYSTEINE 600 MG CAP PO SCH ×2 (08:37→21:14)
[2017-03-21] MEDS: CLOPIDOGREL 75 MG TAB PO SCH (08:37)
[2017-03-21] MEDS: ARTIFICIAL TEARS 15 ML OPH BOTH EYES SCH ×4 (08:37→21:00)
[2017-03-21] MEDS: AMIODARONE 200 MG TAB PO SCH (08:37)
[2017-03-21] MEDS: SPIRONOLACTONE 25 MG TAB PO SCH (08:37)
[2017-03-21] MEDS: ALLOPURINOL 300 MG TAB PO SCH (08:38)
[2017-03-21] MEDS: FERROUS SULFATE (EC) 325 MG TAB PO SCH ×3 (08:38→21:07)
[2017-03-21] MEDS: INSULIN ASPART [NOVOLOG] 3 ML PEN SC SCH ×4 (08:45→21:00)
--- NOTE | 2017-03-21 10:21 | PN ---
DATE: 03/21/2017 CARDIOLOGY FOLLOWUP SUBJECTIVE: The patient with minimal chest wall tenderness at the site of the ICD and wants to go h ome. No shortness of breath, no palpitation. Rhythm strip was reviewed, remained in ventricular pa kaylene rhythm. MEDICATIONS: Reviewed. PHYSICAL EXAMINATION: VITAL SIGNS: Temperature 98.1, heart rate of 70, blood pressure 100/63, respiration rate of 19, sat urating 95%. HEENT: Normocephalic, atraumatic. Pupils are equal. CARDIOVASCULAR: Regular rate and rhythm. Systolic murmur. PULMONARY: With mild rhonchi at the right base. GASTROINTESTINAL: Soft, nontender. EXTREMITIES: With no significant lower extremity edema. NEUROLOGIC: Awake, alert. PSYCHIATRIC: Calm and pleasant. LABORATORY: Shows sodium 131, potassium 4, BUN of 52, creatinine 2.09, glucose 127. Troponin 0.288 . ProBNP of 20,000. Chest x-ray was personally reviewed from this morning which showed small bilateral pleural effusion, vascular congestion. Lung aeration has improved. Status post biventricular AICD. ASSESSMENT AND PLAN: 1. Congestive heart failure, acute on chronic, currently is stable, uvolemic. 2. Ischemic cardiomyopathy status post biventricular AICD. 3. Hypertension. 4. Paroxysmal atrial fibrillation, currently in sinus rhythm. 5. Severe anemia. 6. Chronic kidney disease. RECOMMENDATIONS: We will continue with the current cardiac care including Plavix, Coreg. Statin wi ll be continued. Aldactone will be continued. Amiodarone will be continued on the current dose. C onsider discharge planning today. Patient was scheduled to see me as an outpatient. We will check t he lab as an outpatient. Dictated By: COLIN MANJARREZ/LANG Conf#: [id number] DID#: [id number] CC: ANIL CONNOR DO;*EndCC*
--- NOTE | 2017-03-21 10:32 | PN ---
DATE: 03/21/2017 SUBJECTIVE: The patient is stable, no acute events overnight. No fevers, chills, nausea, vomiting. OBJECTIVE: VITAL SIGNS: Blood pressure 108/63, respirations 19, pulse 70, temperature 98.1. HEENT: Head is normocephalic. NECK: Supple. HEART: Regular rate. LUNGS: Show diminished breath sounds at base. ABDOMEN: Soft, nontender to palpation without rebound or guarding. EXTREMITIES: Negative for clubbing, cyanosis. Trace edema. DERMATOLOGIC: No rashes. MUSCULOSKELETAL: No joint effusions. NEUROLOGIC: No change in exam. MEDICATIONS: The patient's medications have been reviewed. LABORATORY DATA: Shows sodium 131, BUN 52, creatinine 2.09. White count 8.3, hemoglobin 10.3, tenisha tocrit 31.6, platelet count 195. ASSESSMENT AND PLAN: 1. Nonoliguric acute kidney injury on top of chronic kidney disease with a baseline creatinine 1.52 mg/dL. Etiology of acute kidney injury is secondary to cardiorenal syndrome. The patient's renal function has been fluctuating but has been overall at baseline. At this point, continue current lakeisha atment plan, supportive care, renally dose all meds, continue current diuretic regimen. 2. Hyponatremia secondary to acute kidney injury causing decreased free water urinary excretion. C ontinue to limit free water intake. 3. Anemia. Continue to monitor hemoglobin and hematocrit levels. 4. History of congestive heart failure exacerbation, clinically improved. Continue current medical management. 5. Status post implantable cardioverter-defibrillator placement. 6. Mineral bone disorder, continue to monitor calcium and phosphorus levels. 7. Pleural effusion, status post thoracentesis. 8. Diabetes. Continue current insulin regimen. 9. Paroxysmal atrial fibrillation, currently in sinus rhythm. Continue medical management. 10. Pulmonary hypertension. Dictated By: ANIL PERALES/LANG Conf#: [id number] DID#: [id number]
--- NOTE | 2017-03-21 11:18 | CONS ---
Date/Time of Note Date/Time of Note DATE: 03/21/17 TIME: 11:12 Assessment/Plan Assessment/Plan Additional Assessment/Plan Chest x-ray was reviewed from today which is showing a very small left pleural effusion, pacemaker and seen in the left chest wall. Chest x-ray also was reviewed from of this month which is showing a right pleural effusion. Assessment recommendations; 1. Patient with a history of CHF, status post right thoracentesis 4 days ago. Patient reporting episode of hemoptysis 2 early this morning without any further recurrence. Most likely etiology is recent thoracentesis coupled with the fact that the patient has mild CHF as well as is on antiplatelet therapy. I could not appreciate any chest x-ray abnormalities to account for hemoptysis. 2. Chronic renal insufficiency. 3. History of diabetes and hypertension. Continue current treatment. Observe for any further episodes of hemoptysis. If the patient has recurrence then a workup would be warranted at that time. Consultation Date/Type/Reason Admit Date/Time Mar 13, 2017 at 23:30 Date of Consultation: Mar 20, 2017 Type of Consultation: Pulmonary Reason for Consultation Pulmonary consultation requested for evaluation of episode of hemoptysis. Patient was seen at 4 PM on 03/20/2017. Note is being dictated today. Next History presenting any; patient is a pleasant 66-year-old male who came into the hospital on the of this month admitted by the patient's property management intern for evaluation of CHF. Patient has a history of cardia myopathy. He also underwent a pacemaker implantation. On presentation chest x-ray was done which showed a right pleural effusion and patient also underwent thoracentesis on the right side, approximately 1000 mL of clear fluid was withdrawn. Early this morning the patient did have 2 episodes of hemoptysis which was consisting of fresh blood without any sputum mixed with it. According to the patient he has not had any prior episodes and since this morning episode no further episodes were also reported by the patient. He denies any shortness of breath, chest pain, fever chills. Denies any abdominal pain nausea vomiting. Past medical history; 1. Patient with a history of cardiomyopathy. 2. CHF. 3. Cardiac arrhythmia. 4. Hypertension. 5. History of colon resection due to cancer. Medications; were reviewed. Allergies; are none. Social history; most of any smoking. Family history; patient is has a supportive family. Occupational history; patient has a miscellaneous occupations, currently on disability. Review of systems; denies any headache, seizures, visual changes. Any sinus symptoms. Any chest pain. But does complain of mild discomfort at the left wall pacemaker implantation site. Denies any further hemoptysis. Denies any sputum production. Any wheezing. Any abdominal pain, hematemesis. Any melena hematochezia. Any edema. Does complain of chronic dyspnea on exertion. Also complains of occasional lower extremity edema. Does complain of occasional frequency of urination. General exam; elderly male, awake alert currently in no distress. Respiratory: other (hemoptysis) Psychological: nl mood/affect, no complaints Past Surgical History Past Surgical Hx: endoscopy Social History Smoking Status: Never smoker Exam/Review of Systems Vital Signs Vitals Vital Signs Date Time Temp Pulse Resp B/P Pulse Ox O2 Delivery O2 Flow Rate FiO2 03/21/17 09:07 65 03/21/17 07:54 98.1 19 108/63 95 03/19/17 20:00 Nasal Cannula 2.0 Intake and Output 03/20/17 03/20/17 03/21/17 15:00 23:00 07:00 Intake Total 300 ml 300 ml Balance 300 ml 300 ml Exam HEENT exam is; supple neck, positive JVD. No lymphadenopathy. Midline trachea. No thyromegaly. Patient is edentulous. Pupils are small bilaterally. Chest examined; diminished breath sounds right lower lobe otherwise clear. S1- S2 audible, no murmurs. There is a dressing applied over the left chest wall pacemaker. Abdomen examination; soft, nontender. No organomegaly. Bowel sounds audible. Extremity examination; no peripheral edema. Pulses 1+ bilaterally. No clubbing. JUSTICE [employer] JUDGE examination; cranial nerves are intact, no motor deficit. Results Result Diagram: 03/21/1725 03/21/17 07 Results 24 hrs Laboratory Tests Test 03/20/17 12:23 03/20/17 17:53 03/20/17 21:15 03/21/17 07:25 Bedside Glucose 126 146 136 White Blood Count 8.3 Red Blood Count 3.34 L Hemoglobin 10.3 L Hematocrit 31.6 L Mean Corpuscular Volume 94.6 Mean Corpuscular Hemoglobin 30.8 Mean Corpuscular Hemoglobin Concent 32.6 Red Cell Distribution Width 17.8 H Platelet Count 195 Mean Platelet Volume 11.4 H Neutrophils % 70.3 Lymphocytes % 16.6 Monocytes % 10.8 Eosinophils % 1.3 Basophils % 0.4 Nucleated Red Blood Cells % 0.0 Neutrophils # 5.9 Lymphocytes # 1.4 Monocytes # 0.9 Eosinophils # 0.1 Basophils # 0.0 Nucleated Red Blood Cells # 0.0 Sodium Level 131 L Potassium Level 4.0 Chloride Level 98 Carbon Dioxide Level 23 Anion Gap 14 Blood Urea Nitrogen 52 H Creatinine 2.09 H Glucose Level 127 # Calcium Level 8.8 Magnesium Level 2.0 Total Bilirubin 0.6 Direct Bilirubin 0.10 Indirect Bilirubin 0.5 Aspartate Amino Transf (AST/SGOT) 48 H Alanine Aminotransferase (ALT/SGPT) 26 Alkaline Phosphatase 276 H Troponin I 0.288 *H B-Type Natriuretic Peptide 51739 H Total Protein 7.6 Albumin 3.5 Globulin 4.10 H Albumin/Globulin Ratio 0.85 Test 03/21/17 07:58 Bedside Glucose 158 Medications Medications Current Medications Lorazepam (Ativan) 0.5 mg Q6H PRN IV ANXIETY; Start 03/14/17 at 00:00 Metoclopramide HCl (Reglan) 10 mg Q6H PRN IV NAUSEA AND/OR VOMITING; Start at 00:00 Nitroglycerin (Nitroglycerin (Sl Tab) 0.4 Mg) 1 tab Q5M PRN SL CHEST PAIN; Start 03/14/17 at 00:00 Acetaminophen (Tylenol Tab) 650 mg Q6H PRN PO PAIN LEVEL 1-3 OR FEVER Last administered on 03/20/17 12:24; Admin Dose 650 MG; Start 03/14/17 at 00:00 Acetaminophen/ Hydrocodone Bitart ([place] (5/325)) 1 tab Q6H PRN PO PAIN LEVEL 4 -6 Last administered on 03/21/17 07:04; Admin Dose 1 TAB; Start 03/14/17 at 00: 00 Acetaminophen/ Hydrocodone Bitart ([place] (5/325)) 2 tab Q6H PRN PO PAIN LEVEL 7 -10 Last administered on 03/20/17 05:30; Admin Dose 2 TAB; Start 03/14/17 at 00 :00 Famotidine (Pepcid) 20 mg DAILY PO Last administered on 03/21/17 08:37; Admin Dose 20 MG; Start 03/14/17 at 09:00 Allopurinol (Zyloprim) 300 mg DAILY PO Last administered on 03/21/17 08:38; Admin Dose 300 MG; Start 03/14/17 at 09:00 Amiodarone HCl (Cordarone) 100 mg DAILY PO Last administered on 03/21/17 08:37 ; Admin Dose 100 MG; Start 03/14/17 at 09:00 Ferrous Sulfate (Ferrous Sulfate (Ec)) 325 mg TID PO Last administered on 08:38; Admin Dose 325 MG; Start 03/14/17 at 09:00 Miscellaneous Information 1 ea NOTE XX ; Start 03/14/17 at 00:17 Glucose (Glutose) 15 gm Q15M PRN PO DECREASED GLUCOSE; Start 03/14/17 at 00:17 Glucose (Glutose) 22.5 gm Q15M PRN PO DECREASED GLUCOSE; Start 03/14/17 at 00: 17 Dextrose (D50w Syringe) 25 ml Q15M PRN IV DECREASED GLUCOSE; Start 03/14/17 at 00:17 Dextrose (D50w Syringe) 50 ml Q15M PRN IV DECREASED GLUCOSE; Start 03/14/17 at 00:17 Glucagon (Glucagen) 1 mg Q15M PRN IM DECREASED GLUCOSE; Start 03/14/17 at 00:17 Glucose (Glutose) 15 gm Q15M PRN BUCCAL DECREASED GLUCOSE; Start 03/14/17 at 00 :17 Atorvastatin Calcium (Lipitor) 10 mg HS PO Last administered on 03/20/17 21:16 ; Admin Dose 10 MG; Start 03/14/17 at 21:00 Spironolactone (Aldactone) 25 mg DAILY PO Last administered on 03/21/17 08:37 ; Admin Dose 25 MG; Start 03/14/17 at 09:30 Diagnostic Test (Pha) (Accu-Chek) 1 ea 02 XX ; Start 03/18/17 at 02:00 Acetylcysteine (Nac) 600 mg BID PO Last administered on 03/21/17 08:37; Admin Dose 600 MG; Start 03/18/17 at 15:00 Acetaminophen (Tylenol Tab) 650 mg Q4H PRN PO NON-CARDIAC PAIN LEVEL (1-3); Start 03/19/17 at 16:30 Morphine Sulfate (morphine) 1 mg Q1H PRN IV PAIN Last administered on 02:55; Admin Dose 1 MG; Start 03/19/17 at 16:30 Eye Lubricant (Artificial Tears Oph) 2 drop QID BOTH EYES Last administered on 03/21/17 08:37; Admin Dose 2 DROP; Start 03/19/17 at 22:28 Carvedilol (Coreg) 3.125 mg BID PO Last administered on 03/21/17 08:37; Admin Dose 3.125 MG; Start 03/20/17 at 09:00 Clopidogrel Bisulfate (plaVIX) 75 mg DAILY PO Last administered on 03/21/17 08 :37; Admin Dose 75 MG; Start 03/20/17 at 10:00 WILMER DELUNA Mar 21, 2017 11:18
--- NOTE | 2017-03-21 17:29 | RADRPT ---
Vent Rate: 66 bpm RR Interval: 0 msec OR Interval: 112 msec QRS Duration: 180 msec QT Interval: 516 msec QTC Interval: 540 msec P-R-T [place]: 29 - -84 - 67 degrees Electronic ventricular pacemaker Electronically Signed By: Timbo Raygoza [id number]
[2017-03-21] MEDS ORDERED: CARV3.1260 PO (18:41)
[2017-03-21] MEDS ORDERED: SPIR25TA PO (18:41)
--- NOTE | 2017-03-21 18:43 | PDOCDIS ---
Discharge Instructions CONDITION Patient Condition: Stable HOME CARE INSTRUCTIONS: Diet Instructions: Special Diet: 2GM NAYour diet recommendation is: 800ml of fluid daily as per Nephrology ACTIVITY: Activity Restrictions: Slowly Increase Activity FOLLOW UP/APPOINTMENTS Appointments With Cardiology Dr. Alfa Macias within [address] James Savage within 1 week of discharge With Primary care doctor JULIO SAVAGE Mar 21, 2017 18:43
--- NOTE | 2017-03-21 19:00 | DS ---
Date/Time of Note Date/Time of Note DATE: 03/21/17 TIME: 18:44 Discharge Summary Admission/Discharge Info Admit Date/Time Mar 13, 2017 at 23:30 Discharge Date/Time Final Diagnosis CHF exacerbation, Systolic HF, PAF, CKD, Pleural Effusion, Patient Condition: Stable Consults Cardiology, Nephrology, Pulmonology Procedures AICD placement, ultrasound guided thoracentesis Hx of Present Illness This is a 66-year-old male who presents to the emergency room for evaluation of cough, shortness of breath and bilateral lower extremity swelling for the past 48 hours. This patient states that he was at his team facilitator's office, Dr. Macias who sent the patient in for evaluation of CHF. This patient states that he was admitted in the hospital last month for the same. He is on diuretics, but states that his symptoms are not improving. He has not been sick and he has not missed any doses of medications. Apparently though, he has been urinating a lot less the past 2 days. Improved now that is being treated in the ED. Records reviewed. This is patient's 3rd admission this year for CHF, and the second with Acute on Chronic Kidney Disease, and Dr. Savage consulted on him last month, mentioning that he has a history of "CKD stage IIIB/IV, with a baseline creatinine 1.62 mg/dL. Etiology is secondary to cardiorenal syndrome" . Also, the results of his Echo from late last year is listed: Echocardiogram from 10/2016 Normal left ventricular cavity size. Normal left ventricular wall thickness. Moderate left ventricular systolic dysfunction. Ejection fraction is visually estimated at 35 %. Tissue Doppler/Mitral Doppler indices are consistent with restrictive physiology with markedly elevated left atrial pressure (Stage III-IV diastolic dysfunction) Hospital Course 1. Congestive heart failure, acute on chronic, systolic with LVEF 30-35% exacerbation. on diuretics, AICD 03/19/2017, started on aldactone 2. Renal failure, acute on chronic. stable follow up with BMP, nephro following 3. Severe cardiomyopathy, ejection fraction 35%. 4. Coronary artery disease. s/p PCI, cardvedilol increased as per cardio, started on aldactone 5. History of paroxysmal atrial fibrillation, currently in sinus. on amiodarone 6. Anemia, 1 unit PRBC on 03/17/2017, 1 unit PRBC 03/19/2017, hgb today is 10.3 continue to follow. 7. Pleural effusion, from CHF, right thoracentesis 1ith removal of 1000 cc fluid on 03/15/2017 8. hemoptysis - seen by pulmonary and no further intervention as it resolved. Continue to monitor. Patient admited for chf exacerbation. Treated with diuretics. Also with history of PAF, kept on amiodarone. Right sided pleural effusion drained on 03/15/17 via U/S guided thoracentesis which drained 1000cc of fluid. AICD was placed on . Patient also seen by nephro for THEO. Was recommended to continue fluid restriction of 800cc/ daily of fluids upon discharge as patient's free water intake likely contributing to hyponatremia as well. Had episodes of hemoptysis which resolved on their own which could have been secondary to thoracentesis/ pleural effusion, seen by pulm and had no further intervention. Patient stable and was cleared by cardio for discharge for follow up as outpatient with repeat blood work. Home Meds Active Scripts Spironolactone* (Aldactone*) 25 Mg Tablet, 25 MG PO DAILY for 30 Days, #30 TAB Prov:JULIO SAVAGE 03/21/17 Carvedilol* (Carvedilol*) 3.125 Mg Tablet, 3.125 MG PO BID for 30 Days, #60 TAB Prov:JULIO SAVAGE 03/21/17 Pantoprazole* (Pantoprazole*) 40 Mg Tablet.dr, 40 MG PO BID@06,18 for 30 Days Prov:ANDIE ISIDRO 01/14/17 Ferrous Sulfate* (Ferrous Sulfate*) 325 Mg Tabec, 325 MG PO TID for 30 Days, TAB Prov:NADIE ISIDRO 01/14/17 Carvedilol* (Carvedilol*) 3.125 Mg Tablet, 1.5625 MG PO BID for 30 Days, TAB Prov:ANDIE ISIDRO 01/14/17 Bumetanide* (Bumetanide*) 1 Mg Tablet, 1 MG PO BID for 30 Days, TAB Prov:ANDIE ISIDRO 01/14/17 Amiodarone Hcl* (Amiodarone Hcl*) 200 Mg Tablet, 100 MG PO DAILY for 30 Days, TAB Prov:ANDIE ISIDRO 01/14/17 Reported Medications Metoclopramide Hcl* (Metoclopramide Hcl*) 10 Mg Tablet, 10 MG PO TID, TAB 03/13/17 Isosorbide Mononitrate* (Isosorbide Mononitrate*) 30 Mg Tab.er.24h, 30 MG PO DAILY, TAB 01/07/17 Apixaban* (Eliquis*) 2.5 Mg Tablet, 2.5 MG PO BID, TAB 01/07/17 Allopurinol* (Allopurinol*) 300 Mg Tablet, 300 MG PO DAILY, TAB 01/07/17 Atorvastatin* (Atorvastatin*) 40 Mg Tablet, 40 MG PO HS, TAB 09/07/14 Pending Labs Laboratory Tests Test 03/20/17 21:15 03/21/17 07:25 03/21/17 07:58 03/21/17 11:59 Bedside Glucose 136mg/dL (70-220) 158mg/dL (70-220) 174mg/dL (70-220) White Blood Count 8.310^3/ul (4.8-10.8) Red Blood Count 3.3410^6/ul (4.70-6.10) Hemoglobin 10.3g/dl (14.0-18.0) Hematocrit 31.6% (42.0-52.0) Mean Corpuscular Volume 94.6fl (82.0-101.0) Mean Corpuscular Hemoglobin 30.8pg (29.0-33.0) Mean Corpuscular Hemoglobin Concent 32.6g/dl (32.0-37.0) Red Cell Distribution Width 17.8% (11.5-14.5) Platelet Count 37909^3/UL (140-415) Mean Platelet Volume 11.4fl (7.4-10.4) Neutrophils % 70.3% (39.0-77.0) Lymphocytes % 16.6% (15.0-51.0) Monocytes % 10.8% (0.0-11.0) Eosinophils % 1.3% (0.0-7.0) Basophils % 0.4% (0.0-2.0) Nucleated Red Blood Cells % 0.0/100WBC (0.0-0.0) Neutrophils # 5.910^3/ul (1.6-7.5) Lymphocytes # 1.410^3/ul (0.8-2.9) Monocytes # 0.910^3/ul (0.3-0.9) Eosinophils # 0.110^3/ul (0.0-0.5) Basophils # 0.010^3/ul (0.0-0.1) Nucleated Red Blood Cells # 0.010^3/ul (0.0-0.0) Sodium Level 131mmol/L (135-144) Potassium Level 4.0mmol/L (3.5-5.1) Chloride Level 98mmol/L (97-110) Carbon Dioxide Level 23mmol/L (21-31) Anion Gap 14 (8-16) Blood Urea Nitrogen 52mg/dl (7-20) Creatinine 2.09mg/dl (0.61-1.24) Glucose Level 127mg/dl (70-220) Calcium Level 8.8mg/dl (8.4-10.2) Magnesium Level 2.0mg/dl (1.7-2.5) Total Bilirubin 0.6mg/dl (0.2-1.3) Direct Bilirubin 0.10mg/dl (0.00-0.20) Indirect Bilirubin 0.5mg/dl (0-1.1) Aspartate Amino Transf (AST/SGOT) 48IU/L (15-46) Alanine Aminotransferase (ALT/SGPT) 26IU/L (13-69) Alkaline Phosphatase 276IU/L (42-121) Troponin I 0.288ng/ml (0.00-0.12) B-Type Natriuretic Peptide 86677FS/ML (0-125) Total Protein 7.6g/dl (6.1-8.1) Albumin 3.5g/dl (3.3-4.9) Globulin 4.10g/dl (1.3-3.2) Albumin/Globulin Ratio 0.85 Test 03/21/17 17:16 Bedside Glucose 216mg/dL (70-220) JULIO SAVAGE Mar 21, 2017 18:54
[2017-03-21] MEDS: ATORVASTATIN 10 MG TAB PO SCH (21:07)
== END 2017-03-21 21:16 | disposition home or self-care (01) | DRG 226 ==
LOC: E/R 19:48 → MS4 23:30
PROVIDERS: ADMIT Family Medicine; ATTEND Family Medicine
PROC: 30233N1 Transfusion of Nonautologous Red Blood Cells into Peripheral Vein, Percutaneous Approach (ICD-10-PCS; 2017-03-17)
PROC: 0W993ZZ Drainage of Right Pleural Cavity, Percutaneous Approach (ICD-10-PCS; 2017-03-18)
PROC: 02H63KZ Insertion of Defibrillator Lead into Right Atrium, Percutaneous Approach (ICD-10-PCS; 2017-03-19)
PROC: 02HK3KZ Insertion of Defibrillator Lead into Right Ventricle, Percutaneous Approach (ICD-10-PCS; 2017-03-19)
PROC: 0JH609Z Insertion of Cardiac Resynchronization Defibrillator Pulse Generator into Chest Subcutaneous Tissue and Fascia, Open Approach (ICD-10-PCS; principal; 2017-03-19 13:00)
PROC: 02HL3KZ Insertion of Defibrillator Lead into Left Ventricle, Percutaneous Approach (ICD-10-PCS; 2017-03-19 13:00)
DX: I13.0 Hypertensive heart and chronic kidney disease with heart failure and stage 1 through stage 4 chronic kidney disease, or unspecified chronic kidney disease (principal); I50.23 Acute on chronic systolic (congestive) heart failure; N17.9 Acute kidney failure, unspecified; J90 Pleural effusion, not elsewhere classified; E11.22 Type 2 diabetes mellitus with diabetic chronic kidney disease; R04.2 Hemoptysis; E87.1 Hypo-osmolality and hyponatremia; N18.3 Chronic kidney disease, stage 3 (moderate); I25.10 Atherosclerotic heart disease of native coronary artery without angina pectoris; I48.0 Paroxysmal atrial fibrillation; D64.9 Anemia, unspecified; I25.5 Ischemic cardiomyopathy; E87.6 Hypokalemia; I27.2 Other secondary pulmonary hypertension; Z85.038 Personal history of other malignant neoplasm of large intestine; E83.9 Disorder of mineral metabolism, unspecified; Z85.028 Personal history of other malignant neoplasm of stomach; Z98.61 Coronary angioplasty status
CPT/HCPCS: 32555; 33240; 33249; 36415; 36430; 71010; 76604; 80048; 80053; 80061; 82550; 82553; 82728; 82962; 83036; 83540; 83735; 83880; 84100; 84439; 84443; 84484; 85025; 85610; 85730; 86850; 86900; 86901; 86920; 87081; 93005; 93306; 96374; 96376; 97162; J1940; C1769; C1882; C1887; C1895; C2629; J0690; J0886; J1815; J2270; J3010; J7040; J7042; P9016; Q9967

== ENCOUNTER 2017-06-18 16:45 | Inpatient (IN) | payer MEDICARE, OTHER ==
[~2017-06-18] VITALS: Ht 165.1 cm; Wt 66.0 kg
[~2017-06-18 16:45] MED LIST changes: +METO10TA96 PO; +SPIR25TA PO
[2017-06-18] MEDS ORDERED: ONDANSETRON 4 MG INJ IV STA (17:46)
[2017-06-18 18:19] LABS: BASOPHILS % 0.5 % (0.0-2.0); EOSINOPHILS # 0.1 10^3/ul (0.0-0.5); EOSINOPHILS % 1.6 % (0.0-7.0); HEMATOCRIT 26.3 % (42.0-52.0); HEMOGLOBIN 8.7 g/dl (14.0-18.0); LYMPHOCYTES # 1.3 10^3/ul (0.8-2.9); LYMPHOCYTES % 21.6 % (15.0-51.0); MEAN CORPUSCULAR HEMOGLOBIN 33.6 pg (29.0-33.0); MEAN CORPUSCULAR HGB CONC 33.1 g/dl (32.0-37.0); MEAN CORPUSCULAR VOLUME 101.5 fl (82.0-101.0); MEAN PLATELET VOLUME 11.4 fl (7.4-10.4); MONOCYTE # 0.6 10^3/ul (0.3-0.9); MONOCYTES % 10.9 % (0.0-11.0); NEUTROPHIL # 3.8 10^3/ul (1.6-7.5); NEUTROPHILS % 65.1 % (39.0-77.0); PLATELET COUNT 234 10^3/UL (140-415); RED BLOOD COUNT 2.59 10^6/ul (4.70-6.10); RED CELL DISTRIBUTION WIDTH 15.4 % (11.5-14.5); WHITE BLOOD COUNT 5.8 10^3/ul (4.8-10.8)
[2017-06-18 18:31] LABS: ADD UMIC NO; UR ASCORBIC ACID NEGATIVE (NEGATIVE); UR BILIRUBIN (Dip) NEGATIVE (NEGATIVE); UR BLOOD (Dip) NEGATIVE (NEGATIVE); UR CLARITY CLEAR (CLEAR); UR COLOR YELLOW (YELLOW); UR GLUCOSE (Dip) NEGATIVE (NEGATIVE); UR KETONES (Dip) NEGATIVE (NEGATIVE); UR LEUKOCYTE ESTERASE (Dip) NEGATIVE Leu/ul (NEGATIVE); UR NITRITE (Dip) NEGATIVE (NEGATIVE); UR TOTAL PROTEIN (Dip) NEGATIVE (NEGATIVE); UR UROBILINOGEN (Dip) NEGATIVE (NEGATIVE)
[2017-06-18] MEDS ORDERED: BUME2TAB18 PO (18:37)
[2017-06-18] MEDS ORDERED: AMIO200T2 PO (18:38)
[2017-06-18 18:44] LABS: INR 1.54; PROTIME 18.6 Sec (12.2-14.2); PT RATIO 1.5
[2017-06-18 18:45] LABS: PARTIAL THROMBOPLASTIN TIME 41.4 Sec (25.0-35.0)
[2017-06-18 18:49] LABS: ALBUMIN 3.6 g/dl (3.3-4.9); BILIRUBIN,INDIRECT 0.1 mg/dl (0-1.1); BILIRUBIN,TOTAL 0.1 mg/dl (0.2-1.3); CALCIUM 8.3 mg/dl (8.4-10.2); CREATININE 2.76 mg/dl (0.61-1.24); POTASSIUM 3.7 mmol/L (3.5-5.1); TOTAL PROTEIN 7.2 g/dl (6.1-8.1)
[2017-06-18 18:59] LABS: TROPONIN-I 0.015 ng/ml (0.00-0.12)
--- NOTE | 2017-06-18 19:05 | RADRPT ---
PROCEDURE: XR Chest. CLINICAL INDICATION: Abdominal Pain TECHNIQUE: Single frontal view of the chest was obtained. COMPARISON: 02/18/2017 FINDINGS: The cardiomediastinal silhouette is mild to moderately enlarged. There is mild to moderate aortic c alcification. Pulmonary vasculature is prominent and mildly indistinct. There is a moderate right pleural effusion and small left pleural effusion. There is bibasilar atelectasis. There is a left c hest pacemaker AICD. There is no pneumothorax. The osseous structures and soft tissues are unremarkable. IMPRESSION: 1. Mild to moderate cardiomegaly. 2. Mild appearing pulmonary edema. 3. Moderate right pleural effusion and small left pleural effusion. Bibasilar atelectasis. 4. Left chest pacemaker AICD. RPTAT: DD .Justin Bueno MD, MD Date Time Electronically viewed and signed by .Justin Bueno MD, on 06/18/2017 19:05 .T/
[2017-06-18] MEDS ORDERED: FUROSEMIDE 40 MG INJ IV ONE (19:30)
[2017-06-18] MEDS ORDERED: ACETAMINOPHEN 325 MG TAB PO PRN (20:00)
[2017-06-18] MEDS ORDERED: ONDANSETRON 4 MG INJ IV PRN ×2 (20:00→20:30)
--- NOTE | 2017-06-18 20:14 | ERA ---
ER Documentation Chief Complaint Date/Time DATE: 06/18/17 TIME: 20:06 Chief Complaint abdominal pain and sob x 2 weeks, needs paracenthesis HPI This 66-year-old male presents for shortness of breath increasing for the last few days. In spite of what the triage says he denies abdominal pain. States he currently does not have any pain he only has shortness of breath. is on Lasix at home and has been taking them normally. He has had no fevers or chills. ROS All systems reviewed and are negative except as per history of present illness. Medications Home Meds Active Scripts Carvedilol* (Carvedilol*) 3.125 Mg Tablet, 3.125 MG PO BID for 30 Days, #60 TAB Prov:JULIO SAVAGE 03/21/17 Reported Medications Amiodarone Hcl* (Amiodarone Hcl*) 200 Mg Tablet, 200 MG PO DAILY, #30 TAB 06/18/17 Bumetanide* (Bumetanide*) 2 Mg Tablet, 2 MG PO BID, TAB 06/18/17 Isosorbide Mononitrate* (Isosorbide Mononitrate*) 30 Mg Tab.er.24h, 30 MG PO DAILY, TAB 01/07/17 Apixaban* (Eliquis*) 2.5 Mg Tablet, 2.5 MG PO BID, TAB 01/07/17 Allopurinol* (Allopurinol*) 300 Mg Tablet, 300 MG PO DAILY, TAB 01/07/17 Atorvastatin* (Atorvastatin*) 40 Mg Tablet, 40 MG PO HS, TAB 09/07/14 Discontinued Reported Medications Metoclopramide Hcl* (Metoclopramide Hcl*) 10 Mg Tablet, 10 MG PO TID, TAB 03/13/17 Discontinued Scripts Spironolactone* (Aldactone*) 25 Mg Tablet, 25 MG PO DAILY for 30 Days, #30 TAB Prov:JULIO SAVAGE 03/21/17 Pantoprazole* (Pantoprazole*) 40 Mg Tablet.dr, 40 MG PO BID@06,18 for 30 Days Prov:ANDIE ISIDRO 01/14/17 Ferrous Sulfate* (Ferrous Sulfate*) 325 Mg Tabec, 325 MG PO TID for 30 Days, TAB Prov:ANDIE ISIDRO 01/14/17 Carvedilol* (Carvedilol*) 3.125 Mg Tablet, 1.5625 MG PO BID for 30 Days, TAB Prov:REGIDORSTEVEANDIE 01/14/17 Bumetanide* (Bumetanide*) 1 Mg Tablet, 1 MG PO BID for 30 Days, TAB Prov:REGIDOR,ANDIE 01/14/17 Amiodarone Hcl* (Amiodarone Hcl*) 200 Mg Tablet, 100 MG PO DAILY for 30 Days, TAB Prov:REGIDORANDIE 01/14/17 Allergies Allergies: Coded Allergies: No Known Allergy (Unverified , 06/18/17) PMhx/Soc Anesthesia Reaction: No Hx Neurological Disorder: No Hx Respiratory Disorders: Yes (COPD) Hx Cardiac Disorders: Yes (AFIB HTN CHF) Hx Psychiatric Problems: No Hx Miscellaneous Medical Probl: Yes (CKD III/IV) Hx Alcohol Use: Yes Hx Substance Use: No Hx Tobacco Use: No Smoking Status: Never smoker Physical Exam Vitals Vital Signs Date Time Temp Pulse Resp B/P Pulse Ox O2 Delivery O2 Flow Rate FiO2 06/18/17 16:54 98.1 61 22 117/60 99 Physical Exam Const: [] Mild distress, appears short of breath Head: Atraumatic Eyes: Normal Conjunctiva ENT: Normal External Ears, Nose and Mouth. Neck: Full range of motion..~ No meningismus. Resp: Decreased bibasilar breath sounds with scant bibasilar rales. Cardio: Regular rate and rhythm, no murmurs Abd: Soft, non tender, distended but not taut with positive fluid wave, normal bowel sounds Skin: No petechiae or rashes Back: No midline or flank tenderness Ext: No cyanosis, 4+ bilateral lower extremity edema Neur: Awake and alert and oriented 3, no focal deficits Psych: Normal Mood and Affect Result Diagram: 06/18/17 1800 06/18/17 1800 Results 24 hrs Laboratory Tests Test 06/18/17 18:00 06/18/17 18:20 White Blood Count 5.810^3/ul Red Blood Count 2.5910^6/ul Hemoglobin 8.7g/dl Hematocrit 26.3% Mean Corpuscular Volume 101.5fl Mean Corpuscular Hemoglobin 33.6pg Mean Corpuscular Hemoglobin Concent 33.1g/dl Red Cell Distribution Width 15.4% Platelet Count 92779^3/UL Mean Platelet Volume 11.4fl Neutrophils % 65.1% Lymphocytes % 21.6% Monocytes % 10.9% Eosinophils % 1.6% Basophils % 0.5% Nucleated Red Blood Cells % 0.0/100WBC Neutrophils # 3.810^3/ul Lymphocytes # 1.310^3/ul Monocytes # 0.610^3/ul Eosinophils # 0.110^3/ul Basophils # 0.010^3/ul Nucleated Red Blood Cells # 0.010^3/ul Prothrombin Time 18.6Sec Prothrombin Time Ratio 1.5 INR International Normalized Ratio 1.54 Activated Partial Thromboplast Time 41.4Sec Sodium Level 139mmol/L Potassium Level 3.7mmol/L Chloride Level 100mmol/L Carbon Dioxide Level 26mmol/L Anion Gap 17 Blood Urea Nitrogen 85mg/dl Creatinine 2.76mg/dl Glucose Level 181mg/dl Lactic Acid Level 1.0mmol/L Calcium Level 8.3mg/dl Total Bilirubin 0.1mg/dl Direct Bilirubin 0.00mg/dl Indirect Bilirubin 0.1mg/dl Aspartate Amino Transf (AST/SGOT) 36IU/L Alanine Aminotransferase (ALT/SGPT) 34IU/L Alkaline Phosphatase 197IU/L Troponin I 0.015ng/ml Total Protein 7.2g/dl Albumin 3.6g/dl Globulin 3.60g/dl Albumin/Globulin Ratio 1.00 Lipase 63U/L Urine Color YELLOW Urine Clarity CLEAR Urine pH 5.0 Urine Specific [place] 1.010 Urine Ketones NEGATIVEmg/dL Urine Nitrite NEGATIVEmg/dL Urine Bilirubin NEGATIVEmg/dL Urine Urobilinogen NEGATIVEmg/dL Urine Leukocyte Esterase NEGATIVELeu/ul Urine Hemoglobin NEGATIVEmg/dL Urine Glucose NEGATIVEmg/dL Urine Total Protein NEGATIVEmg/dl Current Medications Medications (Trade) Dose Ordered Sig/[place] Route PRN Reason Start Time Stop Time Status Last Admin Dose Admin Ondansetron HCl (Zofran Inj) 4 mg ONCE STAT IV 06/18/17 17:46 06/18/17 17:48 DC Furosemide (Lasix) 40 mg ONCE ONCE IV 06/18/17 19:30 06/18/17 19:31 DC 06/18/17 19:31 Ondansetron HCl (Zofran Inj) 4 mg ER BRIDGE PRN IV NAUSEA AND/OR VOMITING 06/18/17 20:00 06/19/17 19:59 Acetaminophen (Tylenol Tab) 650 mg ER BRIDGE PRN PO MILD PAIN/FEVER 06/18/17 20:00 06/19/17 19:59 Procedures/MDM Patient with pulmonary edema shortness of breath. He has extensive history of coronary artery disease and pacemaker however some of this fluid his lungs may be secondary to abdominal ascites. Currently is not tense and he has no pain in his abdomen. I have very low suspicion for SBP. Also the patient does not currently need a paracentesis based on physical exam showing very compressible abdomen no abdominal pain. Is given Lasix 40 mg. Is being admitted for diuresis and f further medical management of his fluid status and medication regimen he seems to be admitted fairly often for congestive heart failure. Also has anemia at 8.7 not requiring transfusion currently but the patient's EMR he receives transfusions every time it drops below 8 which seems to do so occasionally. Creatinine is approximately at baseline. Spoke with Dr. Savage will be admitting to telemetry EKG interpretation: Paced rhythm rate of 60, extreme right axis deviation, unable to interpret for any ST or T-wave changes concerning for acute ischemia. awake overnight monitor interpretation: Paced rhythm rate of 60 Chest x-ray interpretation: Pulmonary edema in pulmonary vascular engorgement, I see no obvious infiltrate, no pneumothorax, no fractures Departure Diagnosis: Primary Impression: Acute congestive heart failure Additional Impression: Anemia REGGIE LEARY DO Jun 18, 2017 20:14
[2017-06-18] MEDS ORDERED: NACL 0.9% 3 ML SYG IV SCH (20:30)
[2017-06-18] MEDS ORDERED: BISACODYL (EC) 5 MG TAB PO PRN (20:30)
[2017-06-18] MEDS ORDERED: DOCUSATE SODIUM 100 MG CAP PO PRN (20:30)
--- NOTE | 2017-06-18 20:37 | HP ---
Date/Time of Note Date/Time of Note DATE: 06/18/17 TIME: 20:34 Assessment/Plan VTE Prophylaxis VTE Prophylaxis Intervention: SCD's Assessment/Plan Chief Complaint/Hosp Course This is a 66-year-old male being admitted to the telemetry floor for: #1 acute systolic CHF exacerbation: Patient's most recent echocardiogram in February 2017 showed an ejection fraction of 30-35%. At the current time will provide IV diuresis for the patient. Will trend troponins. Will consult cardiology. I will defer further imaging to cardiology. Will limit fluid intake to 800 cc per day. Will check strict I's and O's. 2) Acute on Chronic Kidney Injury:, BUN/Cr = 85/2.74. At the current time will try to avoid nephrotoxic agents though we will be using Lasix for #1. Will consult Dr. 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 3) anemia, likely of chronic disease: Patient has a history of chronic kidney disease as well as liver cirrhosis. At the current time we will continue to monitor patient's hemoglobin. In the setting of his cardiac history we will transfuse PRBCs if his hemoglobin drops below 8. 4) Diabetes Mellitus, Type 2: We will hold oral medication at this time and continue insulin sliding scale. Will put patient on carbohydrate controlled diet. # 5 liver cirrhosis: The patient denies recent alcohol use I will check blood alcohol level. As needed Ativan for any withdrawal symptoms. If patient does indeed have elevated blood alcohol level we will also consider banana bag. Will check a thiamine folate and B12 level. #6 history of atrial fibrillation: Patient currently right now is an atrially paced rhythm. Continue Eliquis. #7 DVT and GI prolapses: SCDs, Protonix Further treatment strategy will be implemented as per the clinical course. Problems: HPI/ROS Admit Date/Time Admit Date/Time Hx of Present Illness Chief complaint: Shortness of breath This 66-year-old male presents for shortness of breath increasing for the last few days. States he currently does not have any pain he only has shortness of breath. He is on on Lasix at home and has been taking them normally. He has had no fevers or chills. As per patient's records this will be his fourth admission for CHF in this past year or so. His most recent echocardiogram which was done in February 2017 showed an ejection fraction of 30-35%. He also follows with Dr. Crouch for his chronic kidney disease. He does not report any recent alcohol use. Allergies: NKDA Medications: See MAR ROS Const: As per HPI Eyes : No pain discharge or redness or change in visual acuity ENT: No pain, sore throat, congestion, congestion, dysphagia or discharge Respiratory: As per HPI Cardiovascular: As per HPI GI : no change in appetite, abdominal pain, nausea, vomiting, diarrhea, constipation, or change in the color his stool Genitourinary: No dysuria, hematuria, flank pain , discharge or CVA tenderness Musculoskeletal: No joint pain, back pain, neck pain, restricted range of motion in neck or joints Skin: No rash, bruising or hives Neuro: No headache, dizziness, syncope, seizure, focal weakness Endocrine: No polyuria, polydipsia, temperature intolerance Psych: No hallucination, depression, anxiety or suicidal ideation PMH/Family/Social Past Medical History COPD; Afib; CHF; HTN; CKD; liver cirrhosis; DM; COLON CA, cardiorenal syndrome , gout Past Surgical History COLON RESECTION R/T COLON CA, endoscopy Past Surgical Hx: endoscopy Social History Alcohol Use: sober Smoking Status: Never smoker Drug Use: none Exam/Review of Systems Vital Signs Vitals Vital Signs Date Time Temp Pulse Resp B/P Pulse Ox O2 Delivery O2 Flow Rate FiO2 06/18/17 16:54 98.1 61 22 117/60 99 Exam Exam General: Patient is well-developed and was sleeping comfortably prior to the examination was easily arousable. HEENT: Atraumatic, normocephalic. The pupils are equal, round and reactive. Extraocular motor are intact Neck: Supple with full range of motion. No rigidity or meningismus Chest: Nontender Lungs: Bilateral expiratory wheezing, patient does not appear in any acute respiratory distress Heart: Normal S1-S2, Regular rhythm and rate. Abdomen: Soft , nontender, nondistended , bowel sounds are present. No guarding no rebound tenderness , No masses or organomegaly. No costovertebral temporal angle mass Extremities: 1+ pitting edema bilateral lower extremities up to the shins Neurologic: Normal mental status, speech normal, cranial nerves II through XII are intact, motor and sensory are intact, no focal weakness Additional Comments EKG interpretation: Paced rhythm rate of 60, extreme right axis deviation, junior media buyer interpretation: Paced rhythm rate of 60 PROCEDURE: XR Chest. CLINICAL INDICATION: Abdominal Pain TECHNIQUE: Single frontal view of the chest was obtained. COMPARISON: 02/18/2017 FINDINGS: The cardiomediastinal silhouette is mild to moderately enlarged. There is mild to moderate aortic calcification. Pulmonary vasculature is prominent and mildly indistinct. There is a moderate right pleural effusion and small left pleural effusion. There is bibasilar atelectasis. There is a left chest pacemaker AICD. There is no pneumothorax. The osseous structures and soft tissues are unremarkable. IMPRESSION: 1. Mild to moderate cardiomegaly. 2. Mild appearing pulmonary edema. 3. Moderate right pleural effusion and small left pleural effusion. Bibasilar atelectasis. 4. Left chest pacemaker AICD. RPTAT: DD .Justin Bueno MD, Date Time Electronically viewed and signed by .Justin Bueno MD, on 06/18/2017 19:05 Labs Result Diagram: 06/18/17 1800 06/18/17 1800 JULIO SAVAGE Jun 18, 2017 20:37
[2017-06-18] MEDS ORDERED: APIXABAN 5 MG TABLET PO SCH (21:00)
[2017-06-18] MEDS ORDERED: GLUCOSE GEL 15 GRAM TUBE BUCCAL PRN (21:00)
[2017-06-18] MEDS: INSULIN ASPART [NOVOLOG] 3 ML PEN SC SCH (21:00)
[2017-06-18] MEDS ORDERED: GLUCOSE GEL 15 GRAM TUBE PO PRN ×2 (21:00)
[2017-06-18] MEDS ORDERED: DEXTROSE 50% 50 ML SYRINGE IV PRN ×2 (21:00)
[2017-06-18] MEDS ORDERED: GLUCAGON 1 MG INJ IM PRN (21:00)
[2017-06-18 21:23] VITALS: PULSE 60
[2017-06-18 21:45] VITALS: Ht 165.1 cm; Wt 66.0 kg
[2017-06-18 22:00] VITALS: BP 129/70; PULSE 64; RESP 16
[2017-06-18 22:30] VITALS: BP 125/72; RESP 20
[2017-06-18] MEDS: ATORVASTATIN 40 MG TAB PO SCH (22:46)
[2017-06-19] VITALS (12 sets, daily range): BP systolic 93–111; BP diastolic 53–61; PULSE 60–68; RESP 18
[2017-06-19 01:46] LABS: TROPONIN-I 0.018 ng/ml (0.00-0.12)
[2017-06-19 01:48] LABS: CK-MB 0.93 ng/ml (0.0-2.4)
[2017-06-19] MEDS: ACCU-CHEK XX SCH (02:00)
[2017-06-19] MEDS ORDERED: LORAZEPAM 2 MG INJ IV PRN (02:30)
[2017-06-19] MEDS ORDERED: FUROSEMIDE 40 MG INJ IV SCH (06:00)
[2017-06-19] MEDS: PANTOPRAZOLE 40 MG INJ IV SCH (06:21)
[2017-06-19 07:14] LABS: WHITE BLOOD COUNT 5.1 10^3/ul (4.8-10.8)
[2017-06-19 07:15] LABS: BASOPHILS % 0.6 % (0.0-2.0); EOSINOPHILS # 0.1 10^3/ul (0.0-0.5); EOSINOPHILS % 1.6 % (0.0-7.0); HEMATOCRIT 25.2 % (42.0-52.0); HEMOGLOBIN 8.2 g/dl (14.0-18.0); LYMPHOCYTES # 1.2 10^3/ul (0.8-2.9); LYMPHOCYTES % 24.3 % (15.0-51.0); MEAN CORPUSCULAR HEMOGLOBIN 32.5 pg (29.0-33.0); MEAN CORPUSCULAR HGB CONC 32.5 g/dl (32.0-37.0); MEAN PLATELET VOLUME 11.1 fl (7.4-10.4); MONOCYTE # 0.4 10^3/ul (0.3-0.9); MONOCYTES % 8.7 % (0.0-11.0); NEUTROPHIL # 3.3 10^3/ul (1.6-7.5); NEUTROPHILS % 64.4 % (39.0-77.0); PLATELET COUNT 224 10^3/UL (140-415); RED BLOOD COUNT 2.52 10^6/ul (4.70-6.10); RED CELL DISTRIBUTION WIDTH 15.4 % (11.5-14.5)
[2017-06-19 07:46] LABS: ALBUMIN 3.4 g/dl (3.3-4.9); ALBUMIN/GLOBULIN RATIO 0.94; BILIRUBIN,INDIRECT 0.4 mg/dl (0-1.1); BILIRUBIN,TOTAL 0.4 mg/dl (0.2-1.3); CALCIUM 8.6 mg/dl (8.4-10.2); CHOL/HDL RATIO 4.3 RATIO; CREATININE 2.33 mg/dl (0.61-1.24); POTASSIUM 3.1 mmol/L (3.5-5.1)
[2017-06-19] MEDS: INSULIN ASPART [NOVOLOG] 3 ML PEN SC SCH ×4 (07:50→21:48)
[2017-06-19] MEDS ORDERED: POTASSIUM CHLORIDE (SR) 20 MEQ TAB PO STA (08:24)
[2017-06-19 08:33] LABS: THYROID STIMULATING HORMONE 4.02 MIU/L (0.465-4.680)
[2017-06-19] MEDS: ALLOPURINOL 300 MG TAB PO SCH (08:59)
[2017-06-19] MEDS: ISOSORBIDE MONONITRATE(SR)30 MG TAB PO SCH (09:03)
[2017-06-19] MEDS: AMIODARONE 200 MG TAB PO SCH (09:03)
--- NOTE | 2017-06-19 09:33 | QN ---
Documentation Comment pt seen and examined. h/p dictated ANIL CONNOR DO Jun 19, 2017 09:33
[2017-06-19 09:44] LABS: CK-MB 0.68 ng/ml (0.0-2.4); TROPONIN-I 0.022 ng/ml (0.00-0.12)
[2017-06-19 10:44] LABS: FOLATE > 20.0 ng/ml (2.8-20.0)
[2017-06-19] MEDS ORDERED: FUROSEMIDE 40 MG INJ IV ONE (11:30)
[2017-06-19] MEDS ORDERED: GUAIFENESIN/DM 5ML CUP PO PRN (12:00)
[2017-06-19 13:22] LABS: CALCIUM 8.7 mg/dl (8.4-10.2); CREATININE 2.24 mg/dl (0.61-1.24); POTASSIUM 3.4 mmol/L (3.5-5.1)
--- NOTE | 2017-06-19 15:33 | PN ---
Date/Time of Note Date/Time of Note DATE: 06/19/17 TIME: 15:30 Assessment/Plan VTE Prophylaxis VTE Prophylaxis Intervention: LMWH Assessment/Plan Chief Complaint/Hosp Course 66 yo male wtih chronic systolic CHF presenting with acute on chronic CHF exacerbation - Increase lasix dose to 80 IV TID, monitor output, still many liters hypervolemic - EMMIE/BB/graciela though limited by CKD THEO on CKD III - Expect some imrpovement with diuresis - Monitor creatinine Anemia of unclear etiology: - Check iron stores - may benefit from EPO Discharge when euvolemic Problems: Subjective 24 Hr Interval Summary Free Text/Dictation Feels well, not much UOP to lasix 40 IV he says Reports adherence to bumex 2 mg BID as outpatient Exam/Review of Systems Vital Signs Vitals Vital Signs Date Time Temp Pulse Resp B/P Pulse Ox O2 Delivery O2 Flow Rate FiO2 06/19/17 15:12 98.1 59 18 98/53 96 06/18/17 22:00 Room Air Intake and Output 06/18/17 06/18/17 06/19/17 15:00 23:00 07:00 Intake Total 400 ml Output Total 900 ml Balance -500 ml Exam +++ JVD +++ Peripheral edema Well appearing, no distress Nonlabored breathing, nonhypoxic Results Result Diagram: 06/19/17 0703 06/19/17 1244 Results 24 hrs Laboratory Tests Test 06/18/17 18:00 06/18/17 18:20 06/18/17 22:46 06/19/17 01:02 White Blood Count 5.8 # Red Blood Count 2.59 #L Hemoglobin 8.7 L Hematocrit 26.3 L Mean Corpuscular Volume 101.5 H Mean Corpuscular Hemoglobin 33.6 H Mean Corpuscular Hemoglobin Concent 33.1 Red Cell Distribution Width 15.4 H Platelet Count 234 Mean Platelet Volume 11.4 H Neutrophils % 65.1 Lymphocytes % 21.6 Monocytes % 10.9 Eosinophils % 1.6 Basophils % 0.5 Nucleated Red Blood Cells % 0.0 Neutrophils # 3.8 Lymphocytes # 1.3 Monocytes # 0.6 Eosinophils # 0.1 Basophils # 0.0 Nucleated Red Blood Cells # 0.0 Prothrombin Time 18.6 H Prothrombin Time Ratio 1.5 INR International Normalized Ratio 1.54 Activated Partial Thromboplast Time 41.4 H Sodium Level 139 Potassium Level 3.7 Chloride Level 100 Carbon Dioxide Level 26 Anion Gap 17 H Blood Urea Nitrogen 85 H Creatinine 2.76 H Glucose Level 181 Lactic Acid Level 1.0 Calcium Level 8.3 L Total Bilirubin 0.1 L Direct Bilirubin 0.00 Indirect Bilirubin 0.1 Aspartate Amino Transf (AST/SGOT) 36 Alanine Aminotransferase (ALT/SGPT) 34 Alkaline Phosphatase 197 H Troponin I 0.015 0.018 Total Protein 7.2 Albumin 3.6 Globulin 3.60 H Albumin/Globulin Ratio 1.00 Lipase 63 Urine Color YELLOW Urine Clarity CLEAR Urine pH 5.0 Urine Specific [place] 1.010 Urine Ketones NEGATIVE Urine Nitrite NEGATIVE Urine Bilirubin NEGATIVE Urine Urobilinogen NEGATIVE Urine Leukocyte Esterase NEGATIVE Urine Hemoglobin NEGATIVE Urine Glucose NEGATIVE Urine Total Protein NEGATIVE Bedside Glucose 112 Creatine Kinase 83 Creatine Kinase Index 1.1 Creatinine Kinase MB (Mass) 0.93 Test 06/19/17 07:03 06/19/17 07:49 06/19/17 11:50 06/19/17 12:44 White Blood Count 5.1 Red Blood Count 2.52 L Hemoglobin 8.2 L Hematocrit 25.2 L Mean Corpuscular Volume 100.0 Mean Corpuscular Hemoglobin 32.5 Mean Corpuscular Hemoglobin Concent 32.5 Red Cell Distribution Width 15.4 H Platelet Count 224 Mean Platelet Volume 11.1 H Neutrophils % 64.4 Lymphocytes % 24.3 Monocytes % 8.7 Eosinophils % 1.6 Basophils % 0.6 Nucleated Red Blood Cells % 0.0 Neutrophils # 3.3 Lymphocytes # 1.2 Monocytes # 0.4 Eosinophils # 0.1 Basophils # 0.0 Nucleated Red Blood Cells # 0.0 Sodium Level 143 139 Potassium Level 3.1 L 3.4 L Chloride Level 105 101 Carbon Dioxide Level 24 26 Anion Gap 17 H 15 Blood Urea Nitrogen 76 H 76 H Creatinine 2.33 H 2.24 H Glucose Level 87 # 105 Hemoglobin A1c 6.1 H Calcium Level 8.6 8.7 Total Bilirubin 0.4 Direct Bilirubin 0.00 Indirect Bilirubin 0.4 Aspartate Amino Transf (AST/SGOT) 30 Alanine Aminotransferase (ALT/SGPT) 37 Alkaline Phosphatase 185 H Creatine Kinase 72 Creatine Kinase Index 0.9 Creatinine Kinase MB (Mass) 0.68 Troponin I 0.022 Total Protein 7.0 Albumin 3.4 Globulin 3.60 H Albumin/Globulin Ratio 0.94 Triglycerides Level 81 Cholesterol Level 82 L LDL Cholesterol, Calculated 47 HDL Cholesterol 19 L Cholesterol/HDL Ratio 4.3 Vitamin B12 Level 817 Folate > 20.0 H Thyroid Stimulating Hormone (TSH) 4.020 Ethyl Alcohol Level < 10.0 Bedside Glucose 100 119 Magnesium Level 2.1 Medications Medications Current Medications Allopurinol (Zyloprim) 300 mg DAILY PO Last administered on 06/19/17 08:59; Admin Dose 300 MG; Start 06/19/17 at 09:00 Amiodarone HCl (Cordarone) 200 mg DAILY PO Last administered on 06/19/17 09:03 ; Admin Dose 200 MG; Start 06/19/17 at 09:00 Apixaban (Eliquis) 2.5 mg BID PO Last administered on 06/18/17 22:48; Admin Dose 2.5 MG; Start 06/18/17 at 21:00; Status Future Hold Atorvastatin Calcium (Lipitor) 40 mg HS PO Last administered on 06/18/17 22:46 ; Admin Dose 40 MG; Start 06/18/17 at 21:00 Carvedilol (Coreg) 3.125 mg BID PO Last administered on 06/19/17 09:02; Admin Dose 3.125 MG; Start 06/18/17 at 21:00 Isosorbide Mononitrate (Imdur) 30 mg DAILY PO Last administered on 06/19/17 09 :03; Admin Dose 30 MG; Start 06/19/17 at 09:00 Ondansetron HCl (Zofran Inj) 4 mg Q6H PRN IV NAUSEA AND/OR VOMITING; Start at 20:30 Acetaminophen (Tylenol Tab) 650 mg Q6H PRN PO PAIN LEVEL 1-3 OR FEVER; Start at 20:30 Docusate Sodium (Colace) 100 mg Q12H PRN PO CONSTIPATION; Start 06/18/17 at 20: 30 Bisacodyl (Dulcolax) 5 mg DAILY PRN PO CONSTIPATION; Start 06/18/17 at 20:30 Pantoprazole (Protonix Iv) 40 mg DAILY@06 IV Last administered on 06/19/17 06: 21; Admin Dose 40 MG; Start 06/19/17 at 06:00 Diagnostic Test (Pha) (Accu-Chek) 1 ea 02 XX ; Start 06/19/17 at 02:00 Miscellaneous Information 1 ea NOTE XX ; Start 06/18/17 at 21:00 Glucose (Glutose) 15 gm Q15M PRN PO DECREASED GLUCOSE; Start 06/18/17 at 21:00 Glucose (Glutose) 22.5 gm Q15M PRN PO DECREASED GLUCOSE; Start 06/18/17 at 21: 00 Dextrose (D50w Syringe) 25 ml Q15M PRN IV DECREASED GLUCOSE; Start 06/18/17 at 21:00 Dextrose (D50w Syringe) 50 ml Q15M PRN IV DECREASED GLUCOSE; Start 06/18/17 at 21:00 Glucagon (Glucagen) 1 mg Q15M PRN IM DECREASED GLUCOSE; Start 06/18/17 at 21:00 Glucose (Glutose) 15 gm Q15M PRN BUCCAL DECREASED GLUCOSE; Start 06/18/17 at 21 :00 Lorazepam (Ativan) 1 mg Q6H PRN IV AGITATION/ANXIETY; Start 06/19/17 at 02:30 Guaifenesin/ Dextromethorphan (Robitussin Dm Liquid Cup) 5 ml Q4H PRN PO cough ; Start 06/19/17 at 12:00 NEVIN SOLIMAN MD Jun 19, 2017 15:33
[2017-06-19] MEDS: FUROSEMIDE 40 MG INJ IV SCH (17:44)
--- NOTE | 2017-06-19 20:15 | CONS ---
DATE OF ADMISSION: 06/18/2017 DATE OF CONSULTATION: 06/19/2017 REASON FOR CONSULTATION: Congestive heart failure. CHIEF COMPLAINT: Shortness of breath and lower extremity edema. HISTORY OF PRESENT ILLNESS: Thank you for referring the patient. I had a discussion with the physicians and the staff, Dr Savage and Dr. Rawls. The patient also very well known to me from previous admissions to the hospital. The old chart was extensively reviewed. This is a pleasant, 66-year-old, gentleman with history of coronary artery disease, ischemic cardiomyopathy, status post BIV ICD, sick sinus syndrome with marked sinus bradycardia, and also intermittent atrial fibrillation, and severe anemia who was admitted with the above complaint. The patient was noted over the past week as having increasing lower extremity edema and shortness of breath. Diuretic was increased, however, he failed outpatient treatment and has been admitted for further workup. He denies any chest pain or pressure. Denies any palpitations to me. He states that he is compliant with his medication, but review of the old chart shows that usually when he comes to the hospital with just resumption of his home p.o. medications has helped him to diurese quite a bit. PAST MEDICAL HISTORY: History of ischemic cardiomyopathy, ejection fraction has been less than 35 percent, status post BIV ICD placement, history of congestive heart failure, history of severe anemia, coronary artery disease, status post PCI, paroxsymal atrial fibrillation, history of liver cirrhosis, possible gastric cancer in the past, according to the patient is stable. History of renal insufficiency and hypertension. PAST SURGICAL HISTORY: Status post PCI in the past, history of cardioversion, status post BIV ICD placement by myself, including an device in February of this year. ALLERGIES: NO REPORTED DRUG ALLERGIES. MEDICATION: Medication on medication reconciliation reviewed. SOCIAL HISTORY: The patient does not smoke or drink at this point. Has smoked and drank in the past, however, stopped for awhile now. FAMILY HISTORY: No reported coronary artery. REVIEW OF SYSTEMS: The above mentioned. He denies all other except for above mentioned. PHYSICAL EXAMINATION: VITAL SIGNS: Temperature 98.1, heart rate of 60 and paced, blood pressure 111/57, respiratory rate of 18, and satting 97 percent. HEENT: Normocephalic, atraumatic. Eyes pupils are equal and round. NECK: Supple, positive for JVD. CARDIOVASCULAR: Diminished sounds. PULMONARY: With more rhonchi at the base. CHEST: Status post ICD with no bleeding or hematoma. GASTROINTESTINAL: Soft, nontender. Positive for ascites. EXTREMITIES: Positive 2 to 3 plus ankle edema. NEUROLOGIC: Awake and alert. PSYCHIATRIC: Calm and pleasant. LABORATORY: Shows WBC of 5.1, hemoglobin of 8.2, platelets of 224. Sodium 143, potassium 3.1, BUN of 76, creatinine 2.33, glucose of 87. Cholesterol 82, LDL at 47, HDL of 19. TSH is pending. EKG is AV paced. Chest x-ray per Radiology report shows mild to moderate cardiomegaly with mild appearing pulmonary edema and moderate right pleural effusion, and small left pleural effusion. Bibasilar atelectasis. Status post left chest ICD. ASSESSMENT AND PLAN: 1. Congestive heart failure, acute on chronic, secondary to systolic dysfunction. 2. Renal failure, acute on chronic. 3. Paroxsymal atrial fibrillation. 4. Status post Bi-V ICD. 5. History of liver cirrhosis. 6. Severe anemia. 7. Diabetes. 8. History of coronary artery disease. 9. History of percutaneous coronary intervention (PCI). 10. Dyslipidemia, under control. 11. Pleural effusion. RECOMMENDATIONS: I will continue with the amiodarone for now. He has been started on IV Lasix for now. We will continue the same dose. We will monitor his renal function. Renal consult with Dr. Savage has been placed. Statins will be continued. Coreg at the current dose will be continued. Diabetic management as per Internal Medicine. Potassium to be replaced. I will hold the Eliquis now due to anemia and also evaluate the chest x-ray tomorrow. If significant fluid may benefit from thoracentesis tomorrow. Continue to monitor on telemetry. I will continue to follow along with you. Dictated By: Alfa Macias MD /[email or web address] /Document#: [id number] CC: Ayaz Rawls MD;*End*
[2017-06-19] MEDS: ATORVASTATIN 40 MG TAB PO SCH (21:45)
[2017-06-20] VITALS (13 sets, daily range): BP systolic 95–115; BP diastolic 53–66; PULSE 60; RESP 17–19
[2017-06-20] MEDS: ACCU-CHEK XX SCH (02:00)
[2017-06-20] MEDS: PANTOPRAZOLE 40 MG INJ IV SCH (06:17)
[2017-06-20] MEDS: FUROSEMIDE 40 MG INJ IV SCH (06:17)
[2017-06-20] MEDS: INSULIN ASPART [NOVOLOG] 3 ML PEN SC SCH ×4 (07:52→20:57)
[2017-06-20] MEDS: ALLOPURINOL 300 MG TAB PO SCH (08:10)
[2017-06-20] MEDS: ISOSORBIDE MONONITRATE(SR)30 MG TAB PO SCH (08:10)
[2017-06-20] MEDS: AMIODARONE 200 MG TAB PO SCH (08:10)
--- NOTE | 2017-06-20 08:21 | PN ---
Date/Time of Note Date/Time of Note DATE: 06/20/17 TIME: 08:15 Assessment/Plan VTE Prophylaxis VTE Prophylaxis Intervention: other Assessment/Plan Chief Complaint/Hosp Course ASSESSMENT AND PLAN: 1. Congestive heart failure, acute on chronic, secondary to systolic dysfunction. 2. Renal failure, acute on chronic. 3. Paroxsymal atrial fibrillation.: currently stable in NSR/ AV paced. 4. Status post Bi-V ICD. 5. History of liver cirrhosis. 6. Severe anemia. 7. Diabetes. 8. History of coronary artery disease. 9. History of percutaneous coronary intervention (PCI). 10. Dyslipidemia, under control. 11. Pleural effusion. RECOMMENDATIONS: I will continue with the amiodarone for now. He has been started on IV Lasix for now. will change to po bumex. We will monitor his renal function. Renal consult with Dr. Savage has been placed. Statins will be continued. Coreg at the current dose will be continued. Diabetic management as per Internal Medicine. Potassium to be replaced prn. I will hold the Eliquis now due to anemia and also need for thoracentesis. will order thoracentesis for today Continue to monitor on telemetry. dc planning next 2 days. consider IV IRON. will continue to follow along with you. Problems: Subjective 24 Hr Interval Summary Free Text/Dictation CARDIOLOGY FOLLOW UP NOTE: d/w staff and rhythm was reviewed. pt remains in Paced rhythm no chest pain or pressure or palpitations breathing is improving still c/o abdominal girth OBJECTIVE: HEENT: Normocephalic, atraumatic. Eyes pupils are equal and round. NECK: Supple, positive for JVD. CARDIOVASCULAR: RRR. systolic murmur. PULMONARY: + rhochi. R > L. no wheezing. . CHEST: Status post ICD with no bleeding or hematoma. GASTROINTESTINAL: Soft, nontender. Positive for ascites. no rebound or guarding . EXTREMITIES: 2 + B/L ankle edema. NEUROLOGIC: Awake and alert. PSYCHIATRIC: Calm and pleasant. Exam/Review of Systems Vital Signs Vitals Vital Signs Date Time Temp Pulse Resp B/P Pulse Ox O2 Delivery O2 Flow Rate FiO2 06/20/17 07:10 98.5 60 18 104/59 97 06/18/17 22:00 Room Air Intake and Output 06/19/17 06/19/17 06/20/17 15:00 23:00 07:00 Intake Total 950 ml 300 ml Output Total 1475 ml 1200 ml Balance -525 ml -900 ml Results Result Diagram: 06/19/17 0703 06/19/17 1244 Results 24 hrs Laboratory Tests Test 06/19/17 11:50 06/19/17 12:44 06/19/17 17:28 06/19/17 21:18 Bedside Glucose 119 137 187 Sodium Level 139 Potassium Level 3.4 L Chloride Level 101 Carbon Dioxide Level 26 Anion Gap 15 Blood Urea Nitrogen 76 H Creatinine 2.24 H Glucose Level 105 Calcium Level 8.7 Magnesium Level 2.1 Test 06/20/17 02:22 06/20/17 07:51 Bedside Glucose 96 100 Medications Medications Current Medications Allopurinol (Zyloprim) 300 mg DAILY PO Last administered on 06/20/17 08:10; Admin Dose 300 MG; Start 06/19/17 at 09:00 Amiodarone HCl (Cordarone) 200 mg DAILY PO Last administered on 06/20/17 08:10 ; Admin Dose 200 MG; Start 06/19/17 at 09:00 Apixaban (Eliquis) 2.5 mg BID PO Last administered on 06/18/17 22:48; Admin Dose 2.5 MG; Start 06/18/17 at 21:00; Status Future Hold Atorvastatin Calcium (Lipitor) 40 mg HS PO Last administered on 06/19/17 21:45 ; Admin Dose 40 MG; Start 06/18/17 at 21:00 Carvedilol (Coreg) 3.125 mg BID PO Last administered on 06/20/17 08:11; Admin Dose 3.125 MG; Start 06/18/17 at 21:00 Isosorbide Mononitrate (Imdur) 30 mg DAILY PO Last administered on 06/20/17 08 :10; Admin Dose 30 MG; Start 06/19/17 at 09:00 Ondansetron HCl (Zofran Inj) 4 mg Q6H PRN IV NAUSEA AND/OR VOMITING; Start at 20:30 Acetaminophen (Tylenol Tab) 650 mg Q6H PRN PO PAIN LEVEL 1-3 OR FEVER; Start at 20:30 Docusate Sodium (Colace) 100 mg Q12H PRN PO CONSTIPATION; Start 06/18/17 at 20: 30 Bisacodyl (Dulcolax) 5 mg DAILY PRN PO CONSTIPATION; Start 06/18/17 at 20:30 Pantoprazole (Protonix Iv) 40 mg DAILY@06 IV Last administered on 06/20/17t 06: 17; Admin Dose 40 MG; Start 06/19/17 at 06:00 Diagnostic Test (Pha) (Accu-Chek) 1 ea 02 XX ; Start 06/19/17 at 02:00 Miscellaneous Information 1 ea NOTE XX ; Start 06/18/17 at 21:00 Glucose (Glutose) 15 gm Q15M PRN PO DECREASED GLUCOSE; Start 06/18/17 at 21:00 Glucose (Glutose) 22.5 gm Q15M PRN PO DECREASED GLUCOSE; Start 06/18/17 at 21: 00 Dextrose (D50w Syringe) 25 ml Q15M PRN IV DECREASED GLUCOSE; Start 06/18/17 at 21:00 Dextrose (D50w Syringe) 50 ml Q15M PRN IV DECREASED GLUCOSE; Start 06/18/17 at 21:00 Glucagon (Glucagen) 1 mg Q15M PRN IM DECREASED GLUCOSE; Start 06/18/17 at 21:00 Glucose (Glutose) 15 gm Q15M PRN BUCCAL DECREASED GLUCOSE; Start 06/18/17 at 21 :00 Lorazepam (Ativan) 1 mg Q6H PRN IV AGITATION/ANXIETY; Start 06/19/17 at 02:30 Guaifenesin/ Dextromethorphan (Robitussin Dm Liquid Cup) 5 ml Q4H PRN PO cough ; Start 06/19/17 at 12:00 COLIN BERGERON MD Jun 20, 2017 08:21
--- NOTE | 2017-06-20 09:21 | PN ---
Date/Time of Note Date/Time of Note DATE: 06/20/17 TIME: 09:19 Assessment/Plan Assessment/Plan Chief Complaint/Hosp Course 1. Nonoliguric acute kidney injury on top of chronic kidney disease with a baseline creatinine 1.52 mg/dL. Etiology of acute kidney injury is secondary to cardiorenal syndrome. The patient's renal function has been improving with diuretic therapy At this point, continue current treatment plan, supportive care, renally dose all meds, continue current diuretic regimen. 3. Anemia. Continue to monitor hemoglobin and hematocrit levels. 4. History of congestive heart failure exacerbation, clinically improved. Continue current medical management. 6. Mineral bone disorder, continue to monitor calcium and phosphorus levels. 7. Pleural effusion, consider thoracentesis. 8. Diabetes. Continue current insulin regimen. 9. Paroxysmal atrial fibrillation, currently in sinus rhythm. Continue medical management. 10. Pulmonary hypertension. Problems: Subjective 24 Hr Interval Summary Free Text/Dictation Patient seen and examined No acute events overnight Patient shortness of breath is improving Exam/Review of Systems Vital Signs Vitals Vital Signs Date Time Temp Pulse Resp B/P Pulse Ox O2 Delivery O2 Flow Rate FiO2 06/20/17 08:14 60 06/20/17 07:10 98.5 18 104/59 97 06/18/17 22:00 Room Air Intake and Output 06/19/17 06/19/17 06/20/17 15:00 23:00 07:00 Intake Total 950 ml 300 ml Output Total 1475 ml 1200 ml Balance -525 ml -900 ml Exam HEENT: Head is normocephalic. NECK: Supple. HEART: Regular rate LUNGS: Show diminished breath sounds at base. ABDOMEN: Soft, nontender to palpation without rebound or guarding. EXTREMITIES: Negative for clubbing, cyanosis. DERMATOLOGIC: No rashes. MUSCULOSKELETAL: No joint effusions, NEUROLOGIC: No change in exam. Results Result Diagram: 06/19/17 0703 06/19/17 1244 Results 24 hrs Laboratory Tests Test 06/19/17 11:50 06/19/17 12:44 06/19/17 17:28 06/19/17 21:18 Bedside Glucose 119 137 187 Sodium Level 139 Potassium Level 3.4 L Chloride Level 101 Carbon Dioxide Level 26 Anion Gap 15 Blood Urea Nitrogen 76 H Creatinine 2.24 H Glucose Level 105 Calcium Level 8.7 Magnesium Level 2.1 Test 06/20/17 02:22 06/20/17 07:51 Bedside Glucose 96 100 Medications Medications Current Medications Allopurinol (Zyloprim) 300 mg DAILY PO Last administered on 06/20/17 08:10; Admin Dose 300 MG; Start 06/19/17 at 09:00 Amiodarone HCl (Cordarone) 200 mg DAILY PO Last administered on 06/20/17 08:10 ; Admin Dose 200 MG; Start 06/19/17 at 09:00 Apixaban (Eliquis) 2.5 mg BID PO Last administered on 06/18/17 22:48; Admin Dose 2.5 MG; Start 06/18/17 at 21:00; Status Future Hold Atorvastatin Calcium (Lipitor) 40 mg HS PO Last administered on 06/19/17 21:45 ; Admin Dose 40 MG; Start 06/18/17 at 21:00 Carvedilol (Coreg) 3.125 mg BID PO Last administered on 06/20/17 08:11; Admin Dose 3.125 MG; Start 06/18/17 at 21:00 Isosorbide Mononitrate (Imdur) 30 mg DAILY PO Last administered on 06/20/17 08 :10; Admin Dose 30 MG; Start 06/19/17 at 09:00 Ondansetron HCl (Zofran Inj) 4 mg Q6H PRN IV NAUSEA AND/OR VOMITING; Start at 20:30 Acetaminophen (Tylenol Tab) 650 mg Q6H PRN PO PAIN LEVEL 1-3 OR FEVER; Start at 20:30 Docusate Sodium (Colace) 100 mg Q12H PRN PO CONSTIPATION; Start 06/18/17 at 20: 30 Bisacodyl (Dulcolax) 5 mg DAILY PRN PO CONSTIPATION; Start 06/18/17 at 20:30 Pantoprazole (Protonix Iv) 40 mg DAILY@06 IV Last administered on 06/20/17 06: 17; Admin Dose 40 MG; Start 06/19/17 at 06:00 Diagnostic Test (Pha) (Accu-Chek) 1 ea 02 XX ; Start 06/19/17 at 02:00 Miscellaneous Information 1 ea NOTE XX ; Start 06/18/17 at 21:00 Glucose (Glutose) 15 gm Q15M PRN PO DECREASED GLUCOSE; Start 06/18/17 at 21:00 Glucose (Glutose) 22.5 gm Q15M PRN PO DECREASED GLUCOSE; Start 06/18/17 at 21: 00 Dextrose (D50w Syringe) 25 ml Q15M PRN IV DECREASED GLUCOSE; Start 06/18/17 at 21:00 Dextrose (D50w Syringe) 50 ml Q15M PRN IV DECREASED GLUCOSE; Start 06/18/17 at 21:00 Glucagon (Glucagen) 1 mg Q15M PRN IM DECREASED GLUCOSE; Start 06/18/17 at 21:00 Glucose (Glutose) 15 gm Q15M PRN BUCCAL DECREASED GLUCOSE; Start 06/18/17 at 21 :00 Lorazepam (Ativan) 1 mg Q6H PRN IV AGITATION/ANXIETY; Start 06/19/17 at 02:30 Guaifenesin/ Dextromethorphan (Robitussin Dm Liquid Cup) 5 ml Q4H PRN PO cough ; Start 06/19/17 at 12:00 ANIL CONNOR DO Jun 20, 2017 09:21
--- NOTE | 2017-06-20 09:53 | RADRPT ---
PROCEDURE: XR Chest. CLINICAL INDICATION: chf TECHNIQUE: Single frontal view of the chest was obtained COMPARISON: Chest x-ray 06/18/2017 FINDINGS: The left costophrenic angle is collimated off the image, limiting evaluation. The left chest wall pacer / AICD device appears stable in position. The cardiac silhouette remains mild to moderately enlarged. There are atherosclerotic calcifications of the thoracic aorta. Mild pulmonary vascular congestion persists. Patchy opacities scattered throughout the right lung and left lower lung have not changed significan tly. There is a small to moderate right pleural effusion, slightly decreased compared to prior study. Bibasilar atelectasis process. There are degenerative changes of the visualized spine. IMPRESSION: 1. Mild to moderate cardiomegaly. 2. Stable mild pulmonary vascular congestion and patchy opacities scattered throughout the right adarsh ng and left lower lung, possibly representing pulmonary edema. Infectious etiology cannot be comple tely excluded. 3. Small moderate pleural effusion, perhaps slightly decreased compared prior study. 4. Bibasilar atelectasis. 5. Stable appearance of the left chest pacemaker / AICD. RPTAT: PP Physician Nic Date Time Electronically viewed and signed by Physician Nic on 06/20/2017 09:52 /
[2017-06-20] MEDS ORDERED: LIDOCAINE 1% (MPF) 5 ML VIAL ONE (12:07)
--- NOTE | 2017-06-20 14:22 | CONS ---
DATE OF ADMISSION: 06/18/2017 DATE OF CONSULTATION: 06/19/2017 REASON FOR CONSULTATION: Acute kidney injury. Chronic kidney disease. Volume overload. CHF. HISTORY OF PRESENT ILLNESS: The patient is a 66-year-old male with a past medical history of chronic kidney disease stage III/IV with a baseline creatinine of 1.62 mg/dL. Etiology is secondary to chronic renal syndrome, diabetes. The patient also has history of cardiomyopathy with ejection fraction of 35 percent. History of a-fib, dyslipidemia, diabetes with previous history of colon cancer and gastric cancer. The patient has had multiple admissions at [facility] for decompensated heart failure. The patient on his last admission had a recent ICD placement performed by Dr. Macias. The patient who subsequently discharged and stable in outpatient setting until approximately one to two weeks ago when the patient noticed to have worsening edema of lower extremity, shortness of breath. The patient was seen by myself at the office, where I adjusted the patient's direct therapy, however, the patient did not have adequate diuresis and subsequently was admitted to [facility] for CHF exacerbation. PAST MEDICAL HISTORY: As stated above. History of CHF, CKD, diabetes, hypertension, a-fib, history of colon cancer. PAST SURGICAL HISTORY: History of colon and gastric surgery. AICD placement. SOCIAL HISTORY: Does not drink, smoke or do drugs. ALLERGIES: NO KNOWN DRUG ALLERGIES. FAMILY HISTORY: Noncontributory. MEDICATIONS: Reviewed. REVIEW OF SYSTEMS: A 14 point review of systems was conducted, pertinent positives as stated in HPI. Otherwise, negative. PHYSICAL EXAMINATION: VITAL SIGNS: Blood pressure is 140/82, respirations 16, pulse 72, temperature 98.2. HEENT: Head is normocephalic. Pupils react to light. NECK: Supple. HEART: Regular rate. LUNGS: Diminished breath sounds at base. ABDOMEN: Soft. Nontender to palpation. No rebound or guarding. EXTREMITIES: Negative for clubbing, cyanosis. Positive edema. SKIN: No rashes. MUSCULOSKELETAL: No joint effusion. NEUROLOGIC: No focal deficits. LABORATORY: Sodium 143, potassium 3.1, BUN 76, creatinine is 233. Hemoglobin A1c 6. White count 5.1, hemoglobin 9.2, hematocrit 25.2, platelet count 224,000. IMAGING: Chest x-ray shows mild appearing pulmonary edema, moderate and right pleural effusion. Small left pleural effusion. ASSESSMENT AND PLAN: 1. Nonoliguric acute kidney injury on top of acute kidney injury stage IIIB/IV, with previous baseline creatinine of 1.5 to 2 m/dL. Etiology of chronic kidney disease cardiorenal syndrome. Plan at this point is to continue current medical management. Continue diuretic therapy. Monitor intake and output closely. Will monitor renal function closely. 2. Hyperkalemia. Secondary to diuretic therapy. Will discontinue potassium chloride. 3. . Continue to monitor calcium phosphorus level. 4. Acute congestive heart failure exacerbation. Continue current medical management with diuretic therapy. Follow up with cardiology to rule out acute coronary syndrome. 5. Atrial fibrillation. Continue current treatment plan. 6. Pulmonary hypertension. Continue to monitor. 7. Bilateral pleural effusion secondary to congestive heart failure. Consider thoracentesis. Continue diuresis. 8. Diabetes. Continue on sliding scale. 9. History of colon cancer. Thank you, Dr. Rawls, for this interesting consult. It will be a pleasure to follow the patient with you through the hospital course. Dictated By: James Savage DO /[email or web address] /Document#: [id number]
[2017-06-20 15:04] LABS: ABNORMAL IP MESSAGE 1; BASOPHILS % 0.2 % (0.0-2.0); EOSINOPHILS # 0.4 10^3/ul (0.0-0.5); EOSINOPHILS % 2.7 % (0.0-7.0); HEMATOCRIT 26.4 % (42.0-52.0); HEMOGLOBIN 7.5 g/dl (14.0-18.0); LYMPHOCYTES # 2.7 10^3/ul (0.8-2.9); MEAN CORPUSCULAR HEMOGLOBIN 26.2 pg (29.0-33.0); MEAN CORPUSCULAR HGB CONC 28.4 g/dl (32.0-37.0); MEAN CORPUSCULAR VOLUME 92.3 fl (82.0-101.0); MEAN PLATELET VOLUME 10.2 fl (7.4-10.4); MONOCYTE # 1.3 10^3/ul (0.3-0.9); MONOCYTES % 10.2 % (0.0-11.0); NEUTROPHIL # 8.5 10^3/ul (1.6-7.5); NEUTROPHILS % 65.1 % (39.0-77.0); PLATELET COUNT 320 10^3/UL (140-415); POSITIVE DIFF @See below; RED BLOOD COUNT 2.86 10^6/ul (4.70-6.10); RED CELL DISTRIBUTION WIDTH 18.6 % (11.5-14.5)
--- NOTE | 2017-06-20 15:09 | RADRPT ---
PROCEDURE: XR Chest. CLINICAL INDICATION: Shortness of breath. Post left thoracentesis. TECHNIQUE: Single frontal view. COMPARISON: 06/20/2017. 0702 hours. FINDINGS: There is a moderate right pleural effusion and right basilar atelectasis, unchanged. Previously not ed left pleural effusion is no longer present. There is improved aeration of the left lung base. The heart is enlarged. There is a biventricular pacemaker/internal cardiac defibrillator. There is no pneumothorax. IMPRESSION: 1. No pneumothorax following left thoracentesis. RPTAT: QQ .Adrian Sosa MD, MD Date Time Electronically viewed and signed by .Adrian Sosa MD, MD on 06/20/2017 15:09 .R/
--- NOTE | 2017-06-20 15:56 | RADRPT ---
PROCEDURE: US guided left thoracentesis. CLINICAL INDICATION: Shortness of breath. Left pleural effusion. TECHNIQUE: Prior to the procedure, informed consent was obtained. The risks, benefits, and alternatives were e xplained to the patient or the patient's family, including but not limited to bleeding, infection, p ain, visceral or vascular damage, shock, pneumothorax, chest tube placement, air embolism, and . The patient or the patient's family understood the risks and the alternatives and wished to proce ed with the study. Informed written consent was obtained. A procedural pause was performed. The patient's name, date of , and procedure to be performed were verified. Ultrasound of the left hemithorax was performed in the axial and sagittal planes. A left pleural eff usion is noted. Utilizing ultrasound guidance, optimal location for entry to the pleural cavity was ascertained. The overlying skin was prepped and draped in the usual sterile fashion. Approximately 10 ml of 1% Xylocaine was injected locally for pain control. Using ultrasound guidance, a 5-Roman[place] Yueh catheter was introduced into the left pleural space without difficulty. Fluid was aspirated. COMPARISON: None. FINDINGS: Initial ultrasound demonstrates fluid in the left pleural space. Approximately 0.900 liters of sero us fluid was aspirated and discarded. IMPRESSION: 1. Satisfactory ultrasound-guided left thoracentesis. RPTAT: QQ .Adrian Sosa MD, Date Time Electronically viewed and signed by .Adrian Sosa MD, on 06/20/2017 15:55 .R/
--- NOTE | 2017-06-20 17:39 | PN ---
Date/Time of Note Date/Time of Note DATE: 06/20/17 TIME: 17:37 Assessment/Plan VTE Prophylaxis VTE Prophylaxis Intervention: heparin Assessment/Plan Chief Complaint/Hosp Course 66 yo male wtih chronic systolic CHF presenting with acute on chronic CHF exacerbation - Increase lasix dose to 80 IV TID, monitor output, still many liters hypervolemic - EMMIE/BB/graciela though limited by CKD THEO on CKD III - Expect some imrpovement with diuresis - Monitor creatinine Anemia of unclear etiology: - Check iron stores - may benefit from EPO Discharge when euvolemic Problems: Assessment/Plan 66 yo male wtih CAD, BiVICD, systolic CHF presenting with acute on chronic CHF exacerbation - COntinue diuresis, many liters remain - BB Anemia of chronic disease CKD III stable Dischareg when euvolimc Subjective 24 Hr Interval Summary Free Text/Dictation Underwent therapeutic thora, 800 cc fluid removed Doing well, no complaints this AM, slowly diuresing Exam/Review of Systems Vital Signs Vitals Vital Signs Date Time Temp Pulse Resp B/P Pulse Ox O2 Delivery O2 Flow Rate FiO2 06/20/17 16:22 60 06/20/17 15:18 98.3 18 104/61 98 06/18/17 22:00 Room Air Intake and Output 06/19/17 06/19/17 06/20/17 15:00 23:00 07:00 Intake Total 950 ml 300 ml Output Total 1475 ml 1200 ml Balance -525 ml -900 ml Exam well appearing ++ JVDn Nonlabored ++ peripehral edema b/l Results Result Diagram: 06/20/17 1444 06/19/17 1244 Results 24 hrs Laboratory Tests Test 06/19/17 21:18 06/20/17 02:22 06/20/17 07:51 06/20/17 11:25 Bedside Glucose 187 96 100 164 Test 06/20/17 14:44 White Blood Count 13.0 #H Red Blood Count 2.86 L Hemoglobin 7.5 L Hematocrit 26.4 L Mean Corpuscular Volume 92.3 Mean Corpuscular Hemoglobin 26.2 L Mean Corpuscular Hemoglobin Concent 28.4 L Red Cell Distribution Width 18.6 #H Platelet Count 320 # Mean Platelet Volume 10.2 Neutrophils % 65.1 Lymphocytes % 21.0 Monocytes % 10.2 Eosinophils % 2.7 Basophils % 0.2 Nucleated Red Blood Cells % 0.0 Neutrophils # 8.5 H Lymphocytes # 2.7 Monocytes # 1.3 H Eosinophils # 0.4 Basophils # 0.0 Nucleated Red Blood Cells # 0.0 Medications Medications Current Medications Allopurinol (Zyloprim) 300 mg DAILY PO Last administered on 06/20/17 08:10; Admin Dose 300 MG; Start 06/19/17 at 09:00 Amiodarone HCl (Cordarone) 200 mg DAILY PO Last administered on 06/20/17 08:10 ; Admin Dose 200 MG; Start 06/19/17 at 09:00 Apixaban (Eliquis) 2.5 mg BID PO Last administered on 06/18/17 22:48; Admin Dose 2.5 MG; Start 06/18/17 at 21:00; Status Future Hold Atorvastatin Calcium (Lipitor) 40 mg HS PO Last administered on 06/19/17 21:45 ; Admin Dose 40 MG; Start 06/18/17 at 21:00 Carvedilol (Coreg) 3.125 mg BID PO Last administered on 06/20/17 08:11; Admin Dose 3.125 MG; Start 06/18/17 at 21:00 Isosorbide Mononitrate (Imdur) 30 mg DAILY PO Last administered on 06/20/17 08 :10; Admin Dose 30 MG; Start 06/19/17 at 09:00 Ondansetron HCl (Zofran Inj) 4 mg Q6H PRN IV NAUSEA AND/OR VOMITING; Start at 20:30 Acetaminophen (Tylenol Tab) 650 mg Q6H PRN PO PAIN LEVEL 1-3 OR FEVER; Start at 20:30 Docusate Sodium (Colace) 100 mg Q12H PRN PO CONSTIPATION; Start 06/18/17 at 20: 30 Bisacodyl (Dulcolax) 5 mg DAILY PRN PO CONSTIPATION; Start 06/18/17 at 20:30 Pantoprazole (Protonix Iv) 40 mg DAILY@06 IV Last administered on 06/20/17 06: 17; Admin Dose 40 MG; Start 06/19/17 at 06:00 Diagnostic Test (Pha) (Accu-Chek) 1 ea 02 XX ; Start 06/19/17 at 02:00 Miscellaneous Information 1 ea NOTE XX ; Start 06/18/17 at 21:00 Glucose (Glutose) 15 gm Q15M PRN PO DECREASED GLUCOSE; Start 06/18/17 at 21:00 Glucose (Glutose) 22.5 gm Q15M PRN PO DECREASED GLUCOSE; Start 06/18/17 at 21: 00 Dextrose (D50w Syringe) 25 ml Q15M PRN IV DECREASED GLUCOSE; Start 06/18/17 at 21:00 Dextrose (D50w Syringe) 50 ml Q15M PRN IV DECREASED GLUCOSE; Start 06/18/17 at 21:00 Glucagon (Glucagen) 1 mg Q15M PRN IM DECREASED GLUCOSE; Start 06/18/17 at 21:00 Glucose (Glutose) 15 gm Q15M PRN BUCCAL DECREASED GLUCOSE; Start 06/18/17 at 21 :00 Lorazepam (Ativan) 1 mg Q6H PRN IV AGITATION/ANXIETY; Start 06/19/17 at 02:30 Guaifenesin/ Dextromethorphan (Robitussin Dm Liquid Cup) 5 ml Q4H PRN PO cough ; Start 06/19/17 at 12:00 NEVIN SOLIMAN MD Jun 20, 2017 17:39
[2017-06-20] MEDS ORDERED: BUMETANIDE 1 MG TAB PO SCH (18:00)
[2017-06-20] MEDS: BUMETANIDE 1 MG TAB PO SCH (18:07)
[2017-06-20] MEDS: ATORVASTATIN 40 MG TAB PO SCH (20:54)
[2017-06-21] VITALS (11 sets, daily range): BP systolic 98–114; BP diastolic 55–65; PULSE 60; RESP 17–19
[2017-06-21] MEDS: ACCU-CHEK XX SCH (02:00)
[2017-06-21] MEDS: PANTOPRAZOLE 40 MG INJ IV SCH (06:28)
[2017-06-21] MEDS: BUMETANIDE 1 MG TAB PO SCH (06:29)
[2017-06-21 06:55] LABS: BASOPHILS % 0.7 % (0.0-2.0); EOSINOPHILS # 0.1 10^3/ul (0.0-0.5); EOSINOPHILS % 1.3 % (0.0-7.0); HEMATOCRIT 24.3 % (42.0-52.0); HEMOGLOBIN 7.8 g/dl (14.0-18.0); LYMPHOCYTES # 1.3 10^3/ul (0.8-2.9); LYMPHOCYTES % 24.2 % (15.0-51.0); MEAN CORPUSCULAR HEMOGLOBIN 31.8 pg (29.0-33.0); MEAN CORPUSCULAR HGB CONC 32.1 g/dl (32.0-37.0); MEAN CORPUSCULAR VOLUME 99.2 fl (82.0-101.0); MEAN PLATELET VOLUME 11.7 fl (7.4-10.4); MONOCYTE # 0.5 10^3/ul (0.3-0.9); MONOCYTES % 9.8 % (0.0-11.0); NEUTROPHIL # 3.5 10^3/ul (1.6-7.5); NEUTROPHILS % 63.6 % (39.0-77.0); PLATELET COUNT 217 10^3/UL (140-415); RED BLOOD COUNT 2.45 10^6/ul (4.70-6.10); RED CELL DISTRIBUTION WIDTH 15.1 % (11.5-14.5); WHITE BLOOD COUNT 5.5 10^3/ul (4.8-10.8)
[2017-06-21] MEDS: INSULIN ASPART [NOVOLOG] 3 ML PEN SC SCH ×4 (07:55→21:00)
[2017-06-21 08:25] LABS: ALBUMIN 3.2 g/dl (3.3-4.9); ALBUMIN/GLOBULIN RATIO 0.91; BILIRUBIN,INDIRECT 0.2 mg/dl (0-1.1); BILIRUBIN,TOTAL 0.2 mg/dl (0.2-1.3); CALCIUM 8.5 mg/dl (8.4-10.2); CREATININE 2.02 mg/dl (0.61-1.24); POTASSIUM 3.5 mmol/L (3.5-5.1); TOTAL PROTEIN 6.7 g/dl (6.1-8.1)
[2017-06-21 08:38] LABS: TOTAL IRON BINDING CAPACITY 291 ug/dl (241-421)
[2017-06-21] MEDS: ISOSORBIDE MONONITRATE(SR)30 MG TAB PO SCH (08:47)
[2017-06-21] MEDS: AMIODARONE 200 MG TAB PO SCH (08:48)
[2017-06-21] MEDS: ALLOPURINOL 300 MG TAB PO SCH (08:48)
[2017-06-21 08:51] LABS: IRON 30 ug/dl (35-150)
--- NOTE | 2017-06-21 15:39 | PN ---
Date/Time of Note Date/Time of Note DATE: 06/21/17 TIME: 15:33 Assessment/Plan VTE Prophylaxis VTE Prophylaxis Intervention: heparin Assessment/Plan Chief Complaint/Hosp Course 66 yo male wtih chronic systolic CHF presenting with acute on chronic CHF exacerbation - Increase bumex, monitor response - EMMIE/graciela indicated for cardiomyopathy though limited by CKD - Continue Coreg 3.25, isosorbide THEO on CKD III - Expect some further imrpovement with diuresis - Monitor creatinine Permanent Atrial Fibrillation: - Continue AC w apixaban, adequately rate controlled Anemia of unclear etiology: - Check iron stores - may benefit from EPO DMII: - Continue basal/bolus insulin Discharge when euvolemic Problems: Subjective 24 Hr Interval Summary Free Text/Dictation Still quite hypervolemic Comfortable Bumex increased to 4 yesterday, not much increase in output Exam/Review of Systems Vital Signs Vitals Vital Signs Date Time Temp Pulse Resp B/P Pulse Ox O2 Delivery O2 Flow Rate FiO2 06/21/17 15:20 97.8 50 18 105/64 98 06/18/17 22:00 Room Air Intake and Output 06/20/17 06/20/17 06/21/17 15:00 23:00 07:00 Intake Total 620 ml 300 ml Output Total 600 ml Balance 20 ml 300 ml Exam Comforrtable No distress ++ JVD ++ bilateral peripheral edema Results Result Diagram: 06/21/17 0602 06/21/17 0602 Results 24 hrs Laboratory Tests Test 06/20/17 17:34 06/20/17 20:57 06/21/17 06:02 06/21/17 07:47 Bedside Glucose 134 176 102 White Blood Count 5.5 # Red Blood Count 2.45 L Hemoglobin 7.8 L Hematocrit 24.3 L Mean Corpuscular Volume 99.2 Mean Corpuscular Hemoglobin 31.8 # Mean Corpuscular Hemoglobin Concent 32.1 Red Cell Distribution Width 15.1 H Platelet Count 217 # Mean Platelet Volume 11.7 H Neutrophils % 63.6 Lymphocytes % 24.2 Monocytes % 9.8 Eosinophils % 1.3 Basophils % 0.7 Nucleated Red Blood Cells % 0.0 Neutrophils # 3.5 Lymphocytes # 1.3 Monocytes # 0.5 Eosinophils # 0.1 Basophils # 0.0 Nucleated Red Blood Cells # 0.0 Sodium Level 142 Potassium Level 3.5 Chloride Level 103 Carbon Dioxide Level 26 Anion Gap 17 H Blood Urea Nitrogen 61 H Creatinine 2.02 H Glucose Level 88 Calcium Level 8.5 Magnesium Level 2.0 Iron Level 30 L Total Iron Binding Capacity 291 Percent Iron Saturation 10 L Total Bilirubin 0.2 Direct Bilirubin 0.00 Indirect Bilirubin 0.2 Aspartate Amino Transf (AST/SGOT) 32 Alanine Aminotransferase (ALT/SGPT) 35 Alkaline Phosphatase 188 H B-Type Natriuretic Peptide 9610 H Total Protein 6.7 Albumin 3.2 L Globulin 3.50 H Albumin/Globulin Ratio 0.91 Thyroid Stimulating Hormone (TSH) Pending Test 06/21/17 11:09 Bedside Glucose 125 Medications Medications Current Medications Allopurinol (Zyloprim) 300 mg DAILY PO Last administered on 06/21/17 08:48; Admin Dose 300 MG; Start 06/19/17 at 09:00 Amiodarone HCl (Cordarone) 200 mg DAILY PO Last administered on 06/21/17 08:48 ; Admin Dose 200 MG; Start 06/19/17 at 09:00 Apixaban (Eliquis) 2.5 mg BID PO Last administered on 06/18/17 22:48; Admin Dose 2.5 MG; Start 06/18/17 at 21:00; Status Future Hold Atorvastatin Calcium (Lipitor) 40 mg HS PO Last administered on 06/20/17 20:54 ; Admin Dose 40 MG; Start 06/18/17 at 21:00 Carvedilol (Coreg) 3.125 mg BID PO Last administered on 06/21/17 08:47; Admin Dose 3.125 MG; Start 06/18/17 at 21:00 Isosorbide Mononitrate (Imdur) 30 mg DAILY PO Last administered on 06/21/17 08 :47; Admin Dose 30 MG; Start 06/19/17 at 09:00 Ondansetron HCl (Zofran Inj) 4 mg Q6H PRN IV NAUSEA AND/OR VOMITING; Start at 20:30 Acetaminophen (Tylenol Tab) 650 mg Q6H PRN PO PAIN LEVEL 1-3 OR FEVER; Start at 20:30 Docusate Sodium (Colace) 100 mg Q12H PRN PO CONSTIPATION; Start 06/18/17 at 20: 30 Bisacodyl (Dulcolax) 5 mg DAILY PRN PO CONSTIPATION; Start 06/18/17 at 20:30 Pantoprazole (Protonix Iv) 40 mg DAILY@06 IV Last administered on 06/21/17t 06: 28; Admin Dose 40 MG; Start 06/19/17 at 06:00 Diagnostic Test (Pha) (Accu-Chek) 1 ea 02 XX ; Start 06/19/17 at 02:00 Miscellaneous Information 1 ea NOTE XX ; Start 06/18/17 at 21:00 Glucose (Glutose) 15 gm Q15M PRN PO DECREASED GLUCOSE; Start 06/18/17 at 21:00 Glucose (Glutose) 22.5 gm Q15M PRN PO DECREASED GLUCOSE; Start 06/18/17 at 21: 00 Dextrose (D50w Syringe) 25 ml Q15M PRN IV DECREASED GLUCOSE; Start 06/18/17 at 21:00 Dextrose (D50w Syringe) 50 ml Q15M PRN IV DECREASED GLUCOSE; Start 06/18/17 at 21:00 Glucagon (Glucagen) 1 mg Q15M PRN IM DECREASED GLUCOSE; Start 06/18/17 at 21:00 Glucose (Glutose) 15 gm Q15M PRN BUCCAL DECREASED GLUCOSE; Start 06/18/17 at 21 :00 Lorazepam (Ativan) 1 mg Q6H PRN IV AGITATION/ANXIETY; Start 06/19/17 at 02:30 Guaifenesin/ Dextromethorphan (Robitussin Dm Liquid Cup) 5 ml Q4H PRN PO cough ; Start 06/19/17 at 12:00 NEVIN SOLIMAN MD Jun 21, 2017 15:39
--- NOTE | 2017-06-21 17:58 | PN ---
Date/Time of Note Date/Time of Note DATE: 06/21/17 TIME: 17:54 Assessment/Plan VTE Prophylaxis VTE Prophylaxis Intervention: other Assessment/Plan Chief Complaint/Hosp Course ASSESSMENT AND PLAN: 1. Congestive heart failure, acute on chronic, secondary to systolic dysfunction. 2. Renal failure, acute on chronic: slowly improving 3. Paroxsymal atrial fibrillation.: currently stable in NSR/ AV paced. 4. Status post Bi-V ICD. 5. History of liver cirrhosis. 6. Severe anemia. 7. Diabetes. 8. History of coronary artery disease. 9. History of percutaneous coronary intervention (PCI). 10. Dyslipidemia, under control. 11. Pleural effusion: s/p thoracentesis. RECOMMENDATIONS: I will dec amiodarone 100 mg po qd for now dec po bumex 2 mg po bid only . We will monitor his renal function. Renal consult appreciated. d/w Dr. Savage Statins will be continued. Coreg at the current dose will be continued. Diabetic management as per Internal Medicine. Potassium to be replaced prn. Continue to monitor on telemetry. dc planning next 1-2 days. consider IV IRON. Thank you Problems: Subjective 24 Hr Interval Summary Free Text/Dictation CARDIOLOGY FOLLOW UP NOTE: d/w staff and rhythm was reviewed. pt remains in Paced rhythm no chest pain or pressure or palpitations breathing is improving s/p thoracentesis. OBJECTIVE: HEENT: Normocephalic, atraumatic. Eyes pupils are equal and round. NECK: Supple, positive for JVD. CARDIOVASCULAR: RRR. systolic murmur. PULMONARY: mild rhochi. CHEST: Status post ICD with no bleeding or hematoma. GASTROINTESTINAL: Soft, nontender. Positive for ascites. no rebound or guarding . EXTREMITIES: 2 + B/L ankle edema. NEUROLOGIC: Awake and alert. PSYCHIATRIC: Calm and pleasant. Exam/Review of Systems Vital Signs Vitals Vital Signs Date Time Temp Pulse Resp B/P Pulse Ox O2 Delivery O2 Flow Rate FiO2 06/21/17 17:14 60 06/21/17 15:20 97.8 18 105/64 98 06/18/17 22:00 Room Air Intake and Output 06/20/17 06/20/17 06/21/17 15:00 23:00 07:00 Intake Total 620 ml 300 ml Output Total 600 ml Balance 20 ml 300 ml Results Result Diagram: 06/21/17 0602 06/21/17 0602 Results 24 hrs Laboratory Tests Test 06/20/17 20:57 06/21/17 06:02 06/21/17 07:47 06/21/17 11:09 Bedside Glucose 176 102 125 White Blood Count 5.5 # Red Blood Count 2.45 L Hemoglobin 7.8 L Hematocrit 24.3 L Mean Corpuscular Volume 99.2 Mean Corpuscular Hemoglobin 31.8 # Mean Corpuscular Hemoglobin Concent 32.1 Red Cell Distribution Width 15.1 H Platelet Count 217 # Mean Platelet Volume 11.7 H Neutrophils % 63.6 Lymphocytes % 24.2 Monocytes % 9.8 Eosinophils % 1.3 Basophils % 0.7 Nucleated Red Blood Cells % 0.0 Neutrophils # 3.5 Lymphocytes # 1.3 Monocytes # 0.5 Eosinophils # 0.1 Basophils # 0.0 Nucleated Red Blood Cells # 0.0 Sodium Level 142 Potassium Level 3.5 Chloride Level 103 Carbon Dioxide Level 26 Anion Gap 17 H Blood Urea Nitrogen 61 H Creatinine 2.02 H Glucose Level 88 Calcium Level 8.5 Magnesium Level 2.0 Iron Level 30 L Total Iron Binding Capacity 291 Percent Iron Saturation 10 L Total Bilirubin 0.2 Direct Bilirubin 0.00 Indirect Bilirubin 0.2 Aspartate Amino Transf (AST/SGOT) 32 Alanine Aminotransferase (ALT/SGPT) 35 Alkaline Phosphatase 188 H B-Type Natriuretic Peptide 9610 H Total Protein 6.7 Albumin 3.2 L Globulin 3.50 H Albumin/Globulin Ratio 0.91 Thyroid Stimulating Hormone (TSH) Pending Test 06/21/17 17:01 Bedside Glucose 138 Medications Medications Current Medications Allopurinol (Zyloprim) 300 mg DAILY PO Last administered on 06/21/17 08:48; Admin Dose 300 MG; Start 06/19/17 at 09:00 Amiodarone HCl (Cordarone) 200 mg DAILY PO Last administered on 06/21/17 08:48 ; Admin Dose 200 MG; Start 06/19/17 at 09:00 Apixaban (Eliquis) 2.5 mg BID PO Last administered on 06/18/17 22:48; Admin Dose 2.5 MG; Start 06/18/17 at 21:00; Status Future Hold Atorvastatin Calcium (Lipitor) 40 mg HS PO Last administered on 06/20/17 20:54 ; Admin Dose 40 MG; Start 06/18/17 at 21:00 Carvedilol (Coreg) 3.125 mg BID PO Last administered on 06/21/17 08:47; Admin Dose 3.125 MG; Start 06/18/17 at 21:00 Isosorbide Mononitrate (Imdur) 30 mg DAILY PO Last administered on 06/21/17 08 :47; Admin Dose 30 MG; Start 06/19/17 at 09:00 Ondansetron HCl (Zofran Inj) 4 mg Q6H PRN IV NAUSEA AND/OR VOMITING; Start at 20:30 Acetaminophen (Tylenol Tab) 650 mg Q6H PRN PO PAIN LEVEL 1-3 OR FEVER; Start at 20:30 Docusate Sodium (Colace) 100 mg Q12H PRN PO CONSTIPATION; Start 06/18/17 at 20: 30 Bisacodyl (Dulcolax) 5 mg DAILY PRN PO CONSTIPATION; Start 06/18/17 at 20:30 Pantoprazole (Protonix Iv) 40 mg DAILY@06 IV Last administered on 06/21/17 06: 28; Admin Dose 40 MG; Start 06/19/17 at 06:00 Diagnostic Test (Pha) (Accu-Chek) 1 ea 02 XX ; Start 06/19/17 at 02:00 Miscellaneous Information 1 ea NOTE XX ; Start 06/18/17 at 21:00 Glucose (Glutose) 15 gm Q15M PRN PO DECREASED GLUCOSE; Start 06/18/17 at 21:00 Glucose (Glutose) 22.5 gm Q15M PRN PO DECREASED GLUCOSE; Start 06/18/17 at 21: 00 Dextrose (D50w Syringe) 25 ml Q15M PRN IV DECREASED GLUCOSE; Start 06/18/17 at 21:00 Dextrose (D50w Syringe) 50 ml Q15M PRN IV DECREASED GLUCOSE; Start 06/18/17 at 21:00 Glucagon (Glucagen) 1 mg Q15M PRN IM DECREASED GLUCOSE; Start 06/18/17 at 21:00 Glucose (Glutose) 15 gm Q15M PRN BUCCAL DECREASED GLUCOSE; Start 06/18/17 at 21 :00 Lorazepam (Ativan) 1 mg Q6H PRN IV AGITATION/ANXIETY; Start 06/19/17 at 02:30 Guaifenesin/ Dextromethorphan (Robitussin Dm Liquid Cup) 5 ml Q4H PRN PO cough ; Start 06/19/17 at 12:00 COLIN BERGERON MD Jun 21, 2017 17:58
[2017-06-21] MEDS ORDERED: BUMETANIDE 1 MG TAB PO SCH ×2 (18:00)
[2017-06-21] MEDS: ATORVASTATIN 40 MG TAB PO SCH (21:05)
[2017-06-22] VITALS (11 sets, daily range): BP systolic 96–112; BP diastolic 55–60; PULSE 60; RESP 18–20
--- NOTE | 2017-06-22 01:39 | RADRPT ---
PROCEDURE: XR Chest. CLINICAL INDICATION: Congestive heart failure. TECHNIQUE: Single frontal view of the chest. COMPARISON: 06/20/2017 FINDINGS: Left anterior chest wall dual chamber cardiac pacer is again seen. Lead tips overlying the expected locations of the right atrium right ventricle. Pacing leads appear intact. Cardiomegaly with atherosclerotic calcifications in the thoracic aorta. No significant change in right pleural effusion, with mildly improved right lung atelectasis versus airspace disease, greater at the right lung base. New small pleural effusion at the left lung base. Mild atelectasis versus airspace disease at the left lung base. Mildly increased pulmonary vascula r congestion. There is no pneumothorax. Linear lucencies over the right lung likely represent skin folds. The osse ous structures and soft tissues are unremarkable. IMPRESSION: 1. Mildly improved right pleural effusion and air space disease in the right lung. 2. New small left pleural effusion with atelectasis versus airspace disease at the left lung base. 3. Mildly increased pulmonary vascular congestion. RPTAT: [facility] Physician Daniel Date Time Electronically viewed and signed by Physician Daniel on 06/22/2017 01:38 RS/
[2017-06-22] MEDS: ACCU-CHEK XX SCH (02:00)
[2017-06-22] MEDS: BUMETANIDE 1 MG TAB PO SCH ×2 (06:07→17:39)
[2017-06-22] MEDS: PANTOPRAZOLE 40 MG INJ IV SCH (06:07)
[2017-06-22 07:10] LABS: BASOPHILS % 0.7 % (0.0-2.0); EOSINOPHILS # 0.1 10^3/ul (0.0-0.5); EOSINOPHILS % 1.8 % (0.0-7.0); HEMATOCRIT 25.2 % (42.0-52.0); HEMOGLOBIN 8.1 g/dl (14.0-18.0); LYMPHOCYTES # 1.3 10^3/ul (0.8-2.9); MEAN CORPUSCULAR HEMOGLOBIN 31.6 pg (29.0-33.0); MEAN CORPUSCULAR HGB CONC 32.1 g/dl (32.0-37.0); MEAN CORPUSCULAR VOLUME 98.4 fl (82.0-101.0); MEAN PLATELET VOLUME 11.5 fl (7.4-10.4); MONOCYTE # 0.6 10^3/ul (0.3-0.9); NEUTROPHIL # 3.5 10^3/ul (1.6-7.5); NEUTROPHILS % 63.1 % (39.0-77.0); PLATELET COUNT 231 10^3/UL (140-415); RED BLOOD COUNT 2.56 10^6/ul (4.70-6.10); RED CELL DISTRIBUTION WIDTH 15.1 % (11.5-14.5); WHITE BLOOD COUNT 5.6 10^3/ul (4.8-10.8)
[2017-06-22 07:29] LABS: MAGNESIUM 1.9 mg/dl (1.7-2.5)
[2017-06-22 07:39] LABS: ALBUMIN 3.3 g/dl (3.3-4.9); ALBUMIN/GLOBULIN RATIO 0.91; BILIRUBIN,INDIRECT 0.3 mg/dl (0-1.1); BILIRUBIN,TOTAL 0.3 mg/dl (0.2-1.3); CALCIUM 8.6 mg/dl (8.4-10.2); CREATININE 2.1 mg/dl (0.61-1.24); POTASSIUM 3.4 mmol/L (3.5-5.1); TOTAL PROTEIN 6.9 g/dl (6.1-8.1)
[2017-06-22] MEDS: INSULIN ASPART [NOVOLOG] 3 ML PEN SC SCH ×4 (07:54→20:48)
[2017-06-22] MEDS ORDERED: POTASSIUM CHLORIDE (SR) 20 MEQ TAB PO STA (08:40)
--- NOTE | 2017-06-22 08:46 | PN ---
Date/Time of Note Date/Time of Note DATE: 06/22/17 TIME: 08:42 Assessment/Plan Assessment/Plan Chief Complaint/Hosp Course Nonoliguric acute kidney injury on top of chronic kidney disease with a baseline creatinine 1.52 mg/dL. Etiology of acute kidney injury is secondary to cardiorenal syndrome. The patient's renal function has been improving with diuretic therapy Continue Bumex 2 mg p.o. twice daily patient is clinically improving continue current treatment plan, supportive care, renally dose all meds, continue current diuretic regimen. Anemia. Patient with evidence of iron deficiency We will start IV Ferrlecit Continue to monitor hemoglobin and hematocrit levels. History of congestive heart failure exacerbation, Patient is clinically improving Chest x-ray reviewed Continue current diuretic regimen Follow-up with cardiology Mineral bone disorder continue to monitor calcium and phosphorus levels. Pleural effusion, Continue diuretic regimen Monitor Diabetes. Continue current insulin regimen. . Paroxysmal atrial fibrillation, currently in sinus rhythm. Continue medical management. 10. Pulmonary hypertension. Problems: Subjective 24 Hr Interval Summary Free Text/Dictation Patient seen and examined No acute events overnight Patient is breathing comfortably Urinary output has been adequate Exam/Review of Systems Vital Signs Vitals Vital Signs Date Time Temp Pulse Resp B/P Pulse Ox O2 Delivery O2 Flow Rate FiO2 06/22/17 08:26 60 06/22/17 07:38 98.0 18 108/59 98 06/18/17 22:00 Room Air Intake and Output 06/21/17 06/21/17 06/22/17 15:00 23:00 07:00 Intake Total 360 ml 300 ml Output Total 700 ml 800 ml Balance -340 ml -500 ml Exam HEENT: Head is normocephalic. NECK: Supple. HEART: Regular rate LUNGS: Show diminished breath sounds at base. ABDOMEN: Soft, nontender to palpation without rebound or guarding. EXTREMITIES: Negative for clubbing, cyanosis. Improved edema on right lower extremity DERMATOLOGIC: No rashes. MUSCULOSKELETAL: No joint effusions, NEUROLOGIC: No change in exam. Results Result Diagram: 06/22/17 0557 06/22/17 0557 Results 24 hrs Laboratory Tests Test 06/21/17 11:09 06/21/17 17:01 06/21/17 21:02 06/22/17 05:57 Bedside Glucose 125 138 157 White Blood Count 5.6 Red Blood Count 2.56 L Hemoglobin 8.1 L Hematocrit 25.2 L Mean Corpuscular Volume 98.4 Mean Corpuscular Hemoglobin 31.6 Mean Corpuscular Hemoglobin Concent 32.1 Red Cell Distribution Width 15.1 H Platelet Count 231 Mean Platelet Volume 11.5 H Neutrophils % 63.1 Lymphocytes % 24.0 Monocytes % 10.0 Eosinophils % 1.8 Basophils % 0.7 Nucleated Red Blood Cells % 0.0 Neutrophils # 3.5 Lymphocytes # 1.3 Monocytes # 0.6 Eosinophils # 0.1 Basophils # 0.0 Nucleated Red Blood Cells # 0.0 Sodium Level 142 Potassium Level 3.4 L Chloride Level 101 Carbon Dioxide Level 27 Anion Gap 17 H Blood Urea Nitrogen 56 H Creatinine 2.10 H Glucose Level 88 Calcium Level 8.6 Phosphorus Level 4.0 Magnesium Level 1.9 Total Bilirubin 0.3 Direct Bilirubin 0.00 Indirect Bilirubin 0.3 Aspartate Amino Transf (AST/SGOT) 34 Alanine Aminotransferase (ALT/SGPT) 31 Alkaline Phosphatase 192 H B-Type Natriuretic Peptide 9790 H Total Protein 6.9 Albumin 3.3 Globulin 3.60 H Albumin/Globulin Ratio 0.91 Test 06/22/17 07:54 Bedside Glucose 92 Medications Medications Current Medications Allopurinol (Zyloprim) 300 mg DAILY PO Last administered on 06/21/17 08:48; Admin Dose 300 MG; Start 06/19/17 at 09:00 Apixaban (Eliquis) 2.5 mg BID PO Last administered on 06/18/17 22:48; Admin Dose 2.5 MG; Start 06/18/17 at 21:00; Status Future Hold Atorvastatin Calcium (Lipitor) 40 mg HS PO Last administered on 06/21/17 21:05 ; Admin Dose 40 MG; Start 06/18/17 at 21:00 Carvedilol (Coreg) 3.125 mg BID PO Last administered on 06/21/17 08:47; Admin Dose 3.125 MG; Start 06/18/17 at 21:00 Isosorbide Mononitrate (Imdur) 30 mg DAILY PO Last administered on 06/21/17 08 :47; Admin Dose 30 MG; Start 06/19/17 at 09:00 Ondansetron HCl (Zofran Inj) 4 mg Q6H PRN IV NAUSEA AND/OR VOMITING; Start at 20:30 Acetaminophen (Tylenol Tab) 650 mg Q6H PRN PO PAIN LEVEL 1-3 OR FEVER; Start at 20:30 Docusate Sodium (Colace) 100 mg Q12H PRN PO CONSTIPATION; Start 06/18/17 at 20: 30 Bisacodyl (Dulcolax) 5 mg DAILY PRN PO CONSTIPATION; Start 06/18/17 at 20:30 Pantoprazole (Protonix Iv) 40 mg DAILY@06 IV Last administered on 06/22/17t 06: 07; Admin Dose 40 MG; Start 06/19/17 at 06:00 Diagnostic Test (Pha) (Accu-Chek) 1 ea 02 XX ; Start 06/19/17 at 02:00 Miscellaneous Information 1 ea NOTE XX ; Start 06/18/17 at 21:00 Glucose (Glutose) 15 gm Q15M PRN PO DECREASED GLUCOSE; Start 06/18/17 at 21:00 Glucose (Glutose) 22.5 gm Q15M PRN PO DECREASED GLUCOSE; Start 06/18/17 at 21: 00 Dextrose (D50w Syringe) 25 ml Q15M PRN IV DECREASED GLUCOSE; Start 06/18/17 at 21:00 Dextrose (D50w Syringe) 50 ml Q15M PRN IV DECREASED GLUCOSE; Start 06/18/17 at 21:00 Glucagon (Glucagen) 1 mg Q15M PRN IM DECREASED GLUCOSE; Start 06/18/17 at 21:00 Glucose (Glutose) 15 gm Q15M PRN BUCCAL DECREASED GLUCOSE; Start 06/18/17 at 21 :00 Lorazepam (Ativan) 1 mg Q6H PRN IV AGITATION/ANXIETY; Start 06/19/17 at 02:30 Guaifenesin/ Dextromethorphan (Robitussin Dm Liquid Cup) 5 ml Q4H PRN PO cough ; Start 06/19/17 at 12:00 Amiodarone HCl (Cordarone) 100 mg DAILY PO ; Start 06/22/17 at 09:00 ANIL CONNOR DO Jun 22, 2017 08:46
[2017-06-22] MEDS: AMIODARONE 200 MG TAB PO SCH (09:06)
[2017-06-22] MEDS: ISOSORBIDE MONONITRATE(SR)30 MG TAB PO SCH (09:07)
[2017-06-22] MEDS: ALLOPURINOL 300 MG TAB PO SCH (09:07)
--- NOTE | 2017-06-22 10:03 | PN ---
Date/Time of Note Date/Time of Note DATE: 06/22/17 TIME: 10:00 Assessment/Plan VTE Prophylaxis VTE Prophylaxis Intervention: SCD's Assessment/Plan Assessment/Plan 1. Congestive heart failure, acute on chronic, secondary to systolic dysfunction. 2. Renal failure, acute on chronic: slowly improving 3. Paroxsymal atrial fibrillation.: currently stable in NSR/ AV paced. 4. Status post Bi-V ICD. 5. History of liver cirrhosis. 6. Severe anemia. 7. Diabetes. 8. History of coronary artery disease. 9. History of percutaneous coronary intervention (PCI). 10. Dyslipidemia, under control. 11. Pleural effusion: s/p thoracentesis. RECOMMENDATIONS: We will monitor his renal function. Renal consult appreciated Statins will be continued. Coreg at the current dose will be continued. Diabetic management as per Internal Medicine. Potassium to be replaced prn. Continue to monitor on telemetry. Subjective 24 Hr Interval Summary Free Text/Dictation the patient with no cahnge overnight Exam/Review of Systems Vital Signs Vitals Vital Signs Date Time Temp Pulse Resp B/P Pulse Ox O2 Delivery O2 Flow Rate FiO2 06/22/17 08:26 60 06/22/17 07:38 98.0 18 108/59 98 06/18/17 22:00 Room Air Intake and Output 06/21/17 06/21/17 06/22/17 15:00 23:00 07:00 Intake Total 360 ml 300 ml Output Total 700 ml 800 ml Balance -340 ml -500 ml Results Result Diagram: 06/22/17 0557 06/22/17 0557 Results 24 hrs Laboratory Tests Test 06/21/17 11:09 06/21/17 17:01 06/21/17 21:02 06/22/17 05:57 Bedside Glucose 125 138 157 White Blood Count 5.6 Red Blood Count 2.56 L Hemoglobin 8.1 L Hematocrit 25.2 L Mean Corpuscular Volume 98.4 Mean Corpuscular Hemoglobin 31.6 Mean Corpuscular Hemoglobin Concent 32.1 Red Cell Distribution Width 15.1 H Platelet Count 231 Mean Platelet Volume 11.5 H Neutrophils % 63.1 Lymphocytes % 24.0 Monocytes % 10.0 Eosinophils % 1.8 Basophils % 0.7 Nucleated Red Blood Cells % 0.0 Neutrophils # 3.5 Lymphocytes # 1.3 Monocytes # 0.6 Eosinophils # 0.1 Basophils # 0.0 Nucleated Red Blood Cells # 0.0 Sodium Level 142 Potassium Level 3.4 L Chloride Level 101 Carbon Dioxide Level 27 Anion Gap 17 H Blood Urea Nitrogen 56 H Creatinine 2.10 H Glucose Level 88 Calcium Level 8.6 Phosphorus Level 4.0 Magnesium Level 1.9 Total Bilirubin 0.3 Direct Bilirubin 0.00 Indirect Bilirubin 0.3 Aspartate Amino Transf (AST/SGOT) 34 Alanine Aminotransferase (ALT/SGPT) 31 Alkaline Phosphatase 192 H B-Type Natriuretic Peptide 9790 H Total Protein 6.9 Albumin 3.3 Globulin 3.60 H Albumin/Globulin Ratio 0.91 Test 06/22/17 07:54 Bedside Glucose 92 Medications Medications Current Medications Allopurinol (Zyloprim) 300 mg DAILY PO Last administered on 06/22/17 09:07; Admin Dose 300 MG; Start 06/19/17 at 09:00 Apixaban (Eliquis) 2.5 mg BID PO Last administered on 06/18/17 22:48; Admin Dose 2.5 MG; Start 06/18/17 at 21:00; Status Future Hold Atorvastatin Calcium (Lipitor) 40 mg HS PO Last administered on 06/21/17 21:05 ; Admin Dose 40 MG; Start 06/18/17 at 21:00 Carvedilol (Coreg) 3.125 mg BID PO Last administered on 06/22/17 09:07; Admin Dose 3.125 MG; Start 06/18/17 at 21:00 Isosorbide Mononitrate (Imdur) 30 mg DAILY PO Last administered on 06/22/17 09 :07; Admin Dose 30 MG; Start 06/19/17 at 09:00 Ondansetron HCl (Zofran Inj) 4 mg Q6H PRN IV NAUSEA AND/OR VOMITING; Start at 20:30 Acetaminophen (Tylenol Tab) 650 mg Q6H PRN PO PAIN LEVEL 1-3 OR FEVER; Start at 20:30 Docusate Sodium (Colace) 100 mg Q12H PRN PO CONSTIPATION; Start 06/18/17 at 20: 30 Bisacodyl (Dulcolax) 5 mg DAILY PRN PO CONSTIPATION; Start 06/18/17 at 20:30 Pantoprazole (Protonix Iv) 40 mg DAILY@06 IV Last administered on 06/22/17 06: 07; Admin Dose 40 MG; Start 06/19/17 at 06:00 Diagnostic Test (Pha) (Accu-Chek) 1 ea 02 XX ; Start 06/19/17 at 02:00 Miscellaneous Information 1 ea NOTE XX ; Start 06/18/17 at 21:00 Glucose (Glutose) 15 gm Q15M PRN PO DECREASED GLUCOSE; Start 06/18/17 at 21:00 Glucose (Glutose) 22.5 gm Q15M PRN PO DECREASED GLUCOSE; Start 06/18/17 at 21: 00 Dextrose (D50w Syringe) 25 ml Q15M PRN IV DECREASED GLUCOSE; Start 06/18/17 at 21:00 Dextrose (D50w Syringe) 50 ml Q15M PRN IV DECREASED GLUCOSE; Start 06/18/17 at 21:00 Glucagon (Glucagen) 1 mg Q15M PRN IM DECREASED GLUCOSE; Start 06/18/17 at 21:00 Glucose (Glutose) 15 gm Q15M PRN BUCCAL DECREASED GLUCOSE; Start 06/18/17 at 21 :00 Lorazepam (Ativan) 1 mg Q6H PRN IV AGITATION/ANXIETY; Start 06/19/17 at 02:30 Guaifenesin/ Dextromethorphan (Robitussin Dm Liquid Cup) 5 ml Q4H PRN PO cough ; Start 06/19/17 at 12:00 Amiodarone HCl 100 mg 100 mg DAILY PO Last administered on 06/22/17 09:06; Admin Dose 100 MG; Start 06/22/17 at 09:00 Ferric Sodium Gluconate Complex/ Sodium Chloride (Ferrlecit/NS) 110 ml @ 110 mls/hr Q24H IVPB ; Start 06/22/17 at 10:00; Stop 06/26/17 at 10:59 ALYSE VAIL MD Jun 22, 2017 10:03
[2017-06-22] MEDS: SOD FERRIC GLUC COMPLX 125 MG in SOD CHLORIDE 0.9% 100 ML IVPB SCH (11:50)
--- NOTE | 2017-06-22 14:07 | PN ---
Date/Time of Note Date/Time of Note DATE: 06/22/17 TIME: 14:06 Assessment/Plan VTE Prophylaxis VTE Prophylaxis Intervention: heparin Assessment/Plan Chief Complaint/Hosp Course 66 yo male wtih chronic systolic CHF, CKD III, DMII presenting with acute on chronic CHF exacerbation Acute on chronic decompensated systolic CHF: - Continue bumex, monitor response - EMMIE/graciela indicated for cardiomyopathy though limited by CKD - Continue Coreg 3.25, isosorbide THEO on CKD III - Expect some further imrpovement with diuresis - Monitor creatinine Permanent Atrial Fibrillation: - Continue AC w apixaban, adequately rate controlled Anemia of CKD: - IV iron - EPO DMII: - Continue basal/bolus insulin, sugars well controlled Discharge when euvolemic Problems: Subjective 24 Hr Interval Summary Free Text/Dictation Feels well, no complaints Normal UOP despite diuretics Exam/Review of Systems Vital Signs Vitals Vital Signs Date Time Temp Pulse Resp B/P Pulse Ox O2 Delivery O2 Flow Rate FiO2 06/22/17 12:34 97.0 68 18 112/57 98 06/18/17 22:00 Room Air Intake and Output 06/21/17 06/21/17 06/22/17 15:00 23:00 07:00 Intake Total 360 ml 300 ml Output Total 700 ml 800 ml Balance -340 ml -500 ml Exam Massive JVD, engorged EJ Nonlabored, comfortable b/l edema to ankles, improving Results Result Diagram: 06/22/17 0557 06/22/17 0557 Results 24 hrs Laboratory Tests Test 06/21/17 17:01 06/21/17 21:02 06/22/17 05:57 06/22/17 07:54 Bedside Glucose 138 157 92 White Blood Count 5.6 Red Blood Count 2.56 L Hemoglobin 8.1 L Hematocrit 25.2 L Mean Corpuscular Volume 98.4 Mean Corpuscular Hemoglobin 31.6 Mean Corpuscular Hemoglobin Concent 32.1 Red Cell Distribution Width 15.1 H Platelet Count 231 Mean Platelet Volume 11.5 H Neutrophils % 63.1 Lymphocytes % 24.0 Monocytes % 10.0 Eosinophils % 1.8 Basophils % 0.7 Nucleated Red Blood Cells % 0.0 Neutrophils # 3.5 Lymphocytes # 1.3 Monocytes # 0.6 Eosinophils # 0.1 Basophils # 0.0 Nucleated Red Blood Cells # 0.0 Sodium Level 142 Potassium Level 3.4 L Chloride Level 101 Carbon Dioxide Level 27 Anion Gap 17 H Blood Urea Nitrogen 56 H Creatinine 2.10 H Glucose Level 88 Calcium Level 8.6 Phosphorus Level 4.0 Magnesium Level 1.9 Ferritin 102.0 Total Bilirubin 0.3 Direct Bilirubin 0.00 Indirect Bilirubin 0.3 Aspartate Amino Transf (AST/SGOT) 34 Alanine Aminotransferase (ALT/SGPT) 31 Alkaline Phosphatase 192 H B-Type Natriuretic Peptide 9790 H Total Protein 6.9 Albumin 3.3 Globulin 3.60 H Albumin/Globulin Ratio 0.91 Test 06/22/17 11:53 Bedside Glucose 120 Medications Medications Current Medications Allopurinol (Zyloprim) 300 mg DAILY PO Last administered on 06/22/17 09:07; Admin Dose 300 MG; Start 06/19/17 at 09:00 Apixaban (Eliquis) 2.5 mg BID PO Last administered on 06/18/17 22:48; Admin Dose 2.5 MG; Start 06/18/17 at 21:00; Status Future Hold Atorvastatin Calcium (Lipitor) 40 mg HS PO Last administered on 06/21/17 21:05 ; Admin Dose 40 MG; Start 06/18/17 at 21:00 Carvedilol (Coreg) 3.125 mg BID PO Last administered on 06/22/17 09:07; Admin Dose 3.125 MG; Start 06/18/17 at 21:00 Isosorbide Mononitrate (Imdur) 30 mg DAILY PO Last administered on 06/22/17 09 :07; Admin Dose 30 MG; Start 06/19/17 at 09:00 Ondansetron HCl (Zofran Inj) 4 mg Q6H PRN IV NAUSEA AND/OR VOMITING; Start at 20:30 Acetaminophen (Tylenol Tab) 650 mg Q6H PRN PO PAIN LEVEL 1-3 OR FEVER; Start at 20:30 Docusate Sodium (Colace) 100 mg Q12H PRN PO CONSTIPATION; Start 06/18/17 at 20: 30 Bisacodyl (Dulcolax) 5 mg DAILY PRN PO CONSTIPATION; Start 06/18/17 at 20:30 Pantoprazole (Protonix Iv) 40 mg DAILY@06 IV Last administered on 06/22/17 06: 07; Admin Dose 40 MG; Start 06/19/17 at 06:00 Diagnostic Test (Pha) (Accu-Chek) 1 ea 02 XX ; Start 06/19/17 at 02:00 Miscellaneous Information 1 ea NOTE XX ; Start 06/18/17 at 21:00 Glucose (Glutose) 15 gm Q15M PRN PO DECREASED GLUCOSE; Start 06/18/17 at 21:00 Glucose (Glutose) 22.5 gm Q15M PRN PO DECREASED GLUCOSE; Start 06/18/17 at 21: 00 Dextrose (D50w Syringe) 25 ml Q15M PRN IV DECREASED GLUCOSE; Start 06/18/17 at 21:00 Dextrose (D50w Syringe) 50 ml Q15M PRN IV DECREASED GLUCOSE; Start 06/18/17 at 21:00 Glucagon (Glucagen) 1 mg Q15M PRN IM DECREASED GLUCOSE; Start 06/18/17 at 21:00 Glucose (Glutose) 15 gm Q15M PRN BUCCAL DECREASED GLUCOSE; Start 06/18/17 at 21 :00 Lorazepam (Ativan) 1 mg Q6H PRN IV AGITATION/ANXIETY; Start 06/19/17 at 02:30 Guaifenesin/ Dextromethorphan (Robitussin Dm Liquid Cup) 5 ml Q4H PRN PO cough ; Start 06/19/17 at 12:00 Amiodarone HCl 100 mg 100 mg DAILY PO Last administered on 06/22/17 09:06; Admin Dose 100 MG; Start 06/22/17 at 09:00 Ferric Sodium Gluconate Complex/ Sodium Chloride (Ferrlecit/NS) 110 ml @ 110 mls/hr Q24H IVPB Last administered on 06/22/17 11:50; Admin Dose 110 MLS/HR; Start 06/22/17 at 10:00; Stop 06/26/17 at 10:59 NEVIN SOLIMAN MD Jun 22, 2017 14:07
[2017-06-22] MEDS: ATORVASTATIN 40 MG TAB PO SCH (20:46)
[2017-06-23] VITALS (13 sets, daily range): BP systolic 98–118; BP diastolic 58–70; PULSE 60; RESP 18–20
[2017-06-23] MEDS: ACCU-CHEK XX SCH (02:00)
[2017-06-23] MEDS: PANTOPRAZOLE 40 MG INJ IV SCH (06:13)
[2017-06-23] MEDS: BUMETANIDE 1 MG TAB PO SCH ×2 (06:14→17:22)
--- NOTE | 2017-06-23 07:10 | PN ---
DATE: 06/21/2017 SUBJECTIVE DATA: The patient is stable. No acute events overnight. No fevers, chills, nausea or vomiting. The patient is clinically improving. OBJECTIVE DATA: VITAL SIGNS: Blood pressure is 122/65, respiration 18, pulse 68, temperature 97.8. HEENT: Head is normocephalic. NECK: Neck is supple. CARDIAC: Heart is regular rate. RESPIRATORY: Lungs show diminished breath sounds at the base. ABDOMEN: Abdomen is soft, nontender to palpation. No rebound or guarding. EXTREMITIES: No clubbing or cyanosis. Trace edema. DERMATOLOGIC: No rashes. MUSCULOSKELETAL: No joint effusion. NEUROLOGIC: No change in exam. MEDICATIONS: The patient's medications were reviewed. LABORATORY AND DIAGNOSTIC DATA: Laboratory data shows a white count of 5.5, hemoglobin 7.8, hematocrit , platelet count is 217. Sodium 142, potassium 3.5, BUN 61 and creatinine 2.02. ASSESSMENT AND PLAN: 1. Nonoliguric acute kidney injury on top of chronic kidney disease stage IIIB with previous baseline creatinine of 1.5 mg/dL. Etiology of acute injury secondary to cardiorenal syndrome. The patient's renal function has been improved with diuretic therapy. Continue current treatment plan. 2. Anemia. Monitor H and H levels. 3. Chronic heart failure, clinically improved. Continue medical management. 4. Mineral bone disorder. Continue to monitor calcium and phosphorus levels. 5. Pleural effusion. Continue monitoring. 6. Diabetes. Continue current Accu-Cheks and sliding scale. 7. Paroxysmal atrial fibrillation. Currently sinus rhythm. Continue medical management. 8. Pulmonary hypertension. Dictated By: James Savage DO /[email or web address]/claire /Document#: [id number]
[2017-06-23 07:36] LABS: BASOPHILS % 0.6 % (0.0-2.0); EOSINOPHILS # 0.1 10^3/ul (0.0-0.5); EOSINOPHILS % 2.3 % (0.0-7.0); HEMATOCRIT 23.8 % (42.0-52.0); HEMOGLOBIN 7.9 g/dl (14.0-18.0); LYMPHOCYTES # 1.4 10^3/ul (0.8-2.9); LYMPHOCYTES % 28.7 % (15.0-51.0); MEAN CORPUSCULAR HEMOGLOBIN 32.9 pg (29.0-33.0); MEAN CORPUSCULAR HGB CONC 33.2 g/dl (32.0-37.0); MEAN CORPUSCULAR VOLUME 99.2 fl (82.0-101.0); MEAN PLATELET VOLUME 11.2 fl (7.4-10.4); MONOCYTE # 0.5 10^3/ul (0.3-0.9); MONOCYTES % 10.5 % (0.0-11.0); NEUTROPHIL # 2.8 10^3/ul (1.6-7.5); NEUTROPHILS % 57.5 % (39.0-77.0); PLATELET COUNT 213 10^3/UL (140-415); WHITE BLOOD COUNT 4.8 10^3/ul (4.8-10.8)
[2017-06-23] MEDS: INSULIN ASPART [NOVOLOG] 3 ML PEN SC SCH ×4 (07:53→21:00)
[2017-06-23 07:56] LABS: CALCIUM 8.6 mg/dl (8.4-10.2); CREATININE 2.05 mg/dl (0.61-1.24); MAGNESIUM 1.9 mg/dl (1.7-2.5); PHOSPHORUS 3.9 mg/dl (2.5-4.9); POTASSIUM 3.7 mmol/L (3.5-5.1)
[2017-06-23] MEDS: ALLOPURINOL 300 MG TAB PO SCH (09:26)
[2017-06-23] MEDS: ISOSORBIDE MONONITRATE(SR)30 MG TAB PO SCH (09:27)
[2017-06-23] MEDS: AMIODARONE 200 MG TAB PO SCH (09:27)
[2017-06-23] MEDS: SOD FERRIC GLUC COMPLX 125 MG in SOD CHLORIDE 0.9% 100 ML IVPB SCH (09:30)
--- NOTE | 2017-06-23 13:27 | PN ---
Date/Time of Note Date/Time of Note DATE: 06/23/17 TIME: 13:26 Assessment/Plan VTE Prophylaxis VTE Prophylaxis Intervention: heparin Assessment/Plan Chief Complaint/Hosp Course 66 yo male wtih chronic systolic CHF, CKD III, DMII presenting with acute on chronic CHF exacerbation Acute on chronic decompensated systolic CHF: - Continue bumex 2 mg PO monitor response - EMMIE/graciela indicated for cardiomyopathy though limited by CKD - Continue Coreg 3.25, isosorbide THEO on CKD III - Expect some further imrpovement with diuresis - Monitor creatinine Permanent Atrial Fibrillation: - Continue AC w apixaban, adequately rate controlled Anemia of CKD: - IV iron - EPO DMII: - Continue basal/bolus insulin, sugars well controlled Seems ready for discharge, per cards/renal Problems: Subjective 24 Hr Interval Summary Free Text/Dictation Feels well No complaints Happy edema has resolved Exam/Review of Systems Vital Signs Vitals Vital Signs Date Time Temp Pulse Resp B/P Pulse Ox O2 Delivery O2 Flow Rate FiO2 06/23/17 12:48 98.0 70 18 118/70 98 Intake and Output 06/22/17 06/22/17 06/23/17 15:00 23:00 07:00 Intake Total 100 ml 700 ml 300 ml Output Total 1000 ml 1225 ml Balance 100 ml -300 ml -925 ml Exam Comfortable Still with quite elevated JVD No peripheral edema remaining Results Result Diagram: 06/23/17 0549 06/23/17 0549 Results 24 hrs Laboratory Tests Test 06/22/17 17:38 06/22/17 20:46 06/23/17 05:49 06/23/17 07:53 Bedside Glucose 141 125 82 White Blood Count 4.8 Red Blood Count 2.40 L Hemoglobin 7.9 L Hematocrit 23.8 L Mean Corpuscular Volume 99.2 Mean Corpuscular Hemoglobin 32.9 Mean Corpuscular Hemoglobin Concent 33.2 Red Cell Distribution Width 15.0 H Platelet Count 213 Mean Platelet Volume 11.2 H Neutrophils % 57.5 Lymphocytes % 28.7 Monocytes % 10.5 Eosinophils % 2.3 Basophils % 0.6 Nucleated Red Blood Cells % 0.0 Neutrophils # 2.8 Lymphocytes # 1.4 Monocytes # 0.5 Eosinophils # 0.1 Basophils # 0.0 Nucleated Red Blood Cells # 0.0 Sodium Level 143 Potassium Level 3.7 Chloride Level 102 Carbon Dioxide Level 27 Anion Gap 18 H Blood Urea Nitrogen 50 H Creatinine 2.05 H Glucose Level 72 Calcium Level 8.6 Phosphorus Level 3.9 Magnesium Level 1.9 Test 06/23/17 11:40 Bedside Glucose 97 Medications Medications Current Medications Allopurinol (Zyloprim) 300 mg DAILY PO Last administered on 06/23/17 09:26; Admin Dose 300 MG; Start 06/19/17 at 09:00 Apixaban (Eliquis) 2.5 mg BID PO Last administered on 06/18/17 22:48; Admin Dose 2.5 MG; Start 06/18/17 at 21:00; Status Future Hold Atorvastatin Calcium (Lipitor) 40 mg HS PO Last administered on 06/22/17 20:46 ; Admin Dose 40 MG; Start 06/18/17 at 21:00 Carvedilol (Coreg) 3.125 mg BID PO Last administered on 06/23/17 09:28; Admin Dose 3.125 MG; Start 06/18/17 at 21:00 Isosorbide Mononitrate (Imdur) 30 mg DAILY PO Last administered on 06/23/17 09 :27; Admin Dose 30 MG; Start 06/19/17 at 09:00 Ondansetron HCl (Zofran Inj) 4 mg Q6H PRN IV NAUSEA AND/OR VOMITING; Start at 20:30 Acetaminophen (Tylenol Tab) 650 mg Q6H PRN PO PAIN LEVEL 1-3 OR FEVER; Start at 20:30 Docusate Sodium (Colace) 100 mg Q12H PRN PO CONSTIPATION; Start 06/18/17 at 20: 30 Bisacodyl (Dulcolax) 5 mg DAILY PRN PO CONSTIPATION; Start 06/18/17 at 20:30 Pantoprazole (Protonix Iv) 40 mg DAILY@06 IV Last administered on 06/23/17 06: 13; Admin Dose 40 MG; Start 06/19/17 at 06:00 Diagnostic Test (Pha) (Accu-Chek) 1 ea 02 XX ; Start 06/19/17 at 02:00 Miscellaneous Information 1 ea NOTE XX ; Start 06/18/17 at 21:00 Glucose (Glutose) 15 gm Q15M PRN PO DECREASED GLUCOSE; Start 06/18/17 at 21:00 Glucose (Glutose) 22.5 gm Q15M PRN PO DECREASED GLUCOSE; Start 06/18/17 at 21: 00 Dextrose (D50w Syringe) 25 ml Q15M PRN IV DECREASED GLUCOSE; Start 06/18/17 at 21:00 Dextrose (D50w Syringe) 50 ml Q15M PRN IV DECREASED GLUCOSE; Start 06/18/17 at 21:00 Glucagon (Glucagen) 1 mg Q15M PRN IM DECREASED GLUCOSE; Start 06/18/17 at 21:00 Glucose (Glutose) 15 gm Q15M PRN BUCCAL DECREASED GLUCOSE; Start 06/18/17 at 21 :00 Lorazepam (Ativan) 1 mg Q6H PRN IV AGITATION/ANXIETY; Start 06/19/17 at 02:30 Guaifenesin/ Dextromethorphan (Robitussin Dm Liquid Cup) 5 ml Q4H PRN PO cough ; Start 06/19/17 at 12:00 Amiodarone HCl 100 mg 100 mg DAILY PO Last administered on 06/23/17 09:27; Admin Dose 100 MG; Start 06/22/17 at 09:00 Ferric Sodium Gluconate Complex/ Sodium Chloride (Ferrlecit/NS) 110 ml @ 110 mls/hr Q24H IVPB Last administered on 06/23/17 09:30; Admin Dose 110 MLS/HR; Start 06/22/17 at 10:00; Stop 06/26/17 at 10:59 NEVIN SOLIMAN MD Jun 23, 2017 13:27
[2017-06-23] MEDS ORDERED: POTASSIUM CHLORIDE (SR) 10 MEQ TAB PO ONE (13:30)
[2017-06-23] MEDS: ATORVASTATIN 40 MG TAB PO SCH (21:44)
[2017-06-24] VITALS (10 sets, daily range): BP systolic 95–114; BP diastolic 58–63; PULSE 60–65; RESP 18–20
[2017-06-24] MEDS: ACCU-CHEK XX SCH (02:00)
--- NOTE | 2017-06-24 05:58 | PN ---
DATE: 06/23/2017 SUBJECTIVE DATA: Patient is stable. No events overnight. No fevers, chills, nausea, vomiting. OBJECTIVE DATA: VITAL SIGNS: Blood pressure is 114/63, temperature 98, pulse 60, respirations 18. HEENT: Head is normocephalic. NECK: Supple. HEART: Regular rate. LUNGS: Diminished breath sounds at the base. ABDOMEN: Soft, nontender to palpation. No rebound or guarding. EXTREMITIES: Negative for clubbing or cyanosis. Trace edema. DERMATOLOGIC: No rashes. MUSCULOSKELETAL: No joint effusion. NEUROLOGIC: No change in exam. MEDICATIONS:: Patient's medications have been reviewed. LABORATORY AND DIAGNOSTIC DATA: Shows a sodium 143, potassium 3.7, BUN 50, creatinine 2.05. White count 12.8, hemoglobin 7.9, hematocrit 23.8, platelet count is 213. ASSESSMENT AND PLAN: 1. Nonoliguric acute kidney injury on top of chronic kidney disease stage III with previous baseline creatinine 1.5 mg/dL. Etiology of acute kidney injury secondary to cardiorenal syndrome. The patient's renal function has been fluctuating but overall improved with diuretic therapy. Continue Bumex at current dose 2 mg b.i.d. but otherwise continue to renally dose all meds. Avoid nephrotoxins. 2. Anemia. The patient is on IV Ferrlecit. Continue to monitor H and H levels. 3. History of congestive heart failure. The patient is currently decompensated, improving. Continue current diuretic regimen. Follow up with Cardiology. 4. Mineral bone disorder. Continue to monitor calcium and phosphorus levels. 5. Perfusion. Continue current diuretic regimen. 6. Diabetes. Continue Accu-Chek and sliding scale. 7. Paroxysmal atrial fibrillation currently in sinus rhythm. 8. History of pulmonary hypertension. Dictated By: James Savage DO /[email or web address]/jose /Document#: [id number]
[2017-06-24] MEDS: PANTOPRAZOLE 40 MG INJ IV SCH (06:18)
[2017-06-24] MEDS: BUMETANIDE 1 MG TAB PO SCH (06:18)
[2017-06-24 06:26] LABS: BASOPHILS % 0.5 % (0.0-2.0); EOSINOPHILS # 0.1 10^3/ul (0.0-0.5); HEMATOCRIT 25.4 % (42.0-52.0); HEMOGLOBIN 8.4 g/dl (14.0-18.0); LYMPHOCYTES # 1.5 10^3/ul (0.8-2.9); LYMPHOCYTES % 26.7 % (15.0-51.0); MEAN CORPUSCULAR HEMOGLOBIN 32.7 pg (29.0-33.0); MEAN CORPUSCULAR HGB CONC 33.1 g/dl (32.0-37.0); MEAN CORPUSCULAR VOLUME 98.8 fl (82.0-101.0); MEAN PLATELET VOLUME 10.9 fl (7.4-10.4); MONOCYTE # 0.7 10^3/ul (0.3-0.9); MONOCYTES % 12.3 % (0.0-11.0); NEUTROPHIL # 3.2 10^3/ul (1.6-7.5); NEUTROPHILS % 58.1 % (39.0-77.0); PLATELET COUNT 216 10^3/UL (140-415); RED BLOOD COUNT 2.57 10^6/ul (4.70-6.10); RED CELL DISTRIBUTION WIDTH 14.9 % (11.5-14.5); WHITE BLOOD COUNT 5.5 10^3/ul (4.8-10.8)
[2017-06-24 06:57] LABS: CALCIUM 8.6 mg/dl (8.4-10.2); CREATININE 2.13 mg/dl (0.61-1.24); MAGNESIUM 1.9 mg/dl (1.7-2.5); POTASSIUM 3.9 mmol/L (3.5-5.1)
[2017-06-24] MEDS: INSULIN ASPART [NOVOLOG] 3 ML PEN SC SCH ×4 (07:55→21:00)
[2017-06-24] MEDS: ISOSORBIDE MONONITRATE(SR)30 MG TAB PO SCH (08:50)
[2017-06-24] MEDS: ALLOPURINOL 300 MG TAB PO SCH (08:50)
[2017-06-24] MEDS: ACETAMINOPHEN 325 MG TAB PO PRN ×2 (08:50→21:00)
[2017-06-24] MEDS: AMIODARONE 200 MG TAB PO SCH (08:52)
[2017-06-24 10:51] LABS: THYROID STIMULATING HORMONE 4.19 MIU/L (0.465-4.680)
[2017-06-24] MEDS: SOD FERRIC GLUC COMPLX 125 MG in SOD CHLORIDE 0.9% 100 ML IVPB SCH (10:57)
--- NOTE | 2017-06-24 11:08 | PN ---
DATE: 06/24/2017 SUBJECTIVE DATA: The patient is stable. No acute events overnight. No fevers, chills, nausea, vomiting. OBJECTIVE DATA: VITAL SIGNS: Blood pressure is 110/62, respirations 18, pulse 60, temperature 98.0. Intake and output, patient 1 L in, 2 L out. HEENT: Head is normocephalic. NECK: Supple. HEART: Regular rate. LUNGS: Diminished breath sounds at the bases. ABDOMEN: Soft, nontender to palpation. No rebound or guarding. EXTREMITIES: Negative for clubbing, cyanosis. No edema. DERMATOLOGIC: No rashes. MUSCULOSKELETAL: No joint effusions. NEUROLOGIC: No change in exam. Patient's medications reviewed. LABORATORY AND DIAGNOSTIC DATA: Sodium 143, potassium 3.9. BUN 46, creatinine 2.13. White count 5.5, hemoglobin 8.4, hematocrit 25.4. Platelet count is 216. ASSESSMENT AND PLAN: 1. Nonoliguric acute kidney injury on top of chronic kidney disease stage 3 with previous baseline creatinine of 1.5 mg/dL. Etiology is currently secondary to cardiorenal syndrome. The patient's renal function is fluctuating with slow increase in creatinine the last 48 hours. Will continue current diuretic regimen. Bumex 2 mg b.i.d. If renal function continues to decline, we will deescalate diuretic therapy. Otherwise continue current treatment plan. 2. Anemia. Continue to monitor hemoglobin and hematocrit levels. Continue IV Ferrlecit. 3. Decompensated congestive heart failure. Continue current medical management. Follow up with Cardiology. 4. Mineral bone disorder. Continue to monitor calcium and phosphorus levels. 5. Diabetes. Continue Accu-Cheks and sliding scale. 6. Paroxysmal atrial fibrillation. Currently in sinus rhythm. 7. History of pulmonary hypertension. Dictated By: James Savage DO /yasmani/jeromy /Document#: [id number]
--- NOTE | 2017-06-24 15:59 | PN ---
Date/Time of Note Date/Time of Note DATE: 06/24/17 TIME: 15:58 Assessment/Plan VTE Prophylaxis VTE Prophylaxis Intervention: other Lines/Catheters [facility] Saline Lock Assessment/Plan Chief Complaint/Hosp Course ASSESSMENT AND PLAN: 1. Congestive heart failure, acute on chronic, secondary to systolic dysfunction. 2. Renal failure, acute on chronic: slowly improving 3. Paroxsymal atrial fibrillation.: currently stable in NSR/ AV paced. 4. Status post Bi-V ICD. 5. History of liver cirrhosis. 6. Severe anemia. 7. Diabetes. 8. History of coronary artery disease. 9. History of percutaneous coronary intervention (PCI). 10. Dyslipidemia, under control. 11. Pleural effusion: s/p thoracentesis. RECOMMENDATIONS: I will cont amiodarone 100 mg po qd for now dec po bumex 2 mg po qd only, but will add aldactone We will monitor his renal function. Renal consult appreciated. d/w Dr. Savage Statins will be continued. Coreg at the current dose will be continued. Diabetic management as per Internal Medicine. Potassium to be replaced prn. Continue to monitor on telemetry. dc planning tomorrow Thank you Problems: Subjective 24 Hr Interval Summary Free Text/Dictation CARDIOLOGY FOLLOW UP NOTE: d/w staff and rhythm was reviewed. pt remains in Paced rhythm no chest pain or pressure or palpitations breathing is improving s/p thoracentesis. OBJECTIVE: HEENT: Normocephalic, atraumatic. Eyes pupils are equal and round. NECK: Supple, positive for JVD. CARDIOVASCULAR: RRR. systolic murmur. PULMONARY: mild rhochi. CHEST: Status post ICD with no bleeding or hematoma. GASTROINTESTINAL: Soft, nontender. Positive for ascites. no rebound or guarding . EXTREMITIES: TRACE B/L ankle edema. NEUROLOGIC: Awake and alert. PSYCHIATRIC: Calm and pleasant. Exam/Review of Systems Vital Signs Vitals Vital Signs Date Time Temp Pulse Resp B/P Pulse Ox O2 Delivery O2 Flow Rate FiO2 06/24/17 12:26 98.0 60 18 95/58 98 Intake and Output 06/23/17 06/23/17 06/24/17 15:00 23:00 07:00 Intake Total 100 ml 850 ml 250 ml Output Total 1000 ml 1050 ml Balance 100 ml -150 ml -800 ml Results Result Diagram: 06/24/17 0557 06/24/17 0557 Results 24 hrs Laboratory Tests Test 06/23/17 17:09 06/23/17 21:43 06/24/17 05:57 06/24/17 08:15 Bedside Glucose 116 127 88 White Blood Count 5.5 Red Blood Count 2.57 L Hemoglobin 8.4 L Hematocrit 25.4 L Mean Corpuscular Volume 98.8 Mean Corpuscular Hemoglobin 32.7 Mean Corpuscular Hemoglobin Concent 33.1 Red Cell Distribution Width 14.9 H Platelet Count 216 Mean Platelet Volume 10.9 H Neutrophils % 58.1 Lymphocytes % 26.7 Monocytes % 12.3 H Eosinophils % 2.0 Basophils % 0.5 Nucleated Red Blood Cells % 0.0 Neutrophils # 3.2 Lymphocytes # 1.5 Monocytes # 0.7 Eosinophils # 0.1 Basophils # 0.0 Nucleated Red Blood Cells # 0.0 Sodium Level 143 Potassium Level 3.9 Chloride Level 102 Carbon Dioxide Level 27 Anion Gap 18 H Blood Urea Nitrogen 46 H Creatinine 2.13 H Glucose Level 77 Calcium Level 8.6 Phosphorus Level 4.0 Magnesium Level 1.9 Test 06/24/17 12:13 Bedside Glucose 96 Medications Medications Current Medications Allopurinol (Zyloprim) 300 mg DAILY PO Last administered on 06/24/17 08:50; Admin Dose 300 MG; Start 06/19/17 at 09:00 Apixaban (Eliquis) 2.5 mg BID PO Last administered on 06/18/17 22:48; Admin Dose 2.5 MG; Start 06/18/17 at 21:00; Status Future Hold Atorvastatin Calcium (Lipitor) 40 mg HS PO Last administered on 06/23/17 21:44 ; Admin Dose 40 MG; Start 06/18/17 at 21:00 Carvedilol (Coreg) 3.125 mg BID PO Last administered on 06/24/17 08:51; Admin Dose 3.125 MG; Start 06/18/17 at 21:00 Isosorbide Mononitrate (Imdur) 30 mg DAILY PO Last administered on 06/24/17 08 :50; Admin Dose 30 MG; Start 06/19/17 at 09:00 Ondansetron HCl (Zofran Inj) 4 mg Q6H PRN IV NAUSEA AND/OR VOMITING; Start at 20:30 Acetaminophen (Tylenol Tab) 650 mg Q6H PRN PO PAIN LEVEL 1-3 OR FEVER Last administered on 06/24/17 08:50; Admin Dose 650 MG; Start 06/18/17 at 20:30 Docusate Sodium (Colace) 100 mg Q12H PRN PO CONSTIPATION; Start 06/18/17 at 20: 30 Bisacodyl (Dulcolax) 5 mg DAILY PRN PO CONSTIPATION; Start 06/18/17 at 20:30 Pantoprazole (Protonix Iv) 40 mg DAILY@06 IV Last administered on 06/24/17 06: 18; Admin Dose 40 MG; Start 06/19/17 at 06:00 Diagnostic Test (Pha) (Accu-Chek) 1 ea 02 XX ; Start 06/19/17 at 02:00 Miscellaneous Information 1 ea NOTE XX ; Start 06/18/17 at 21:00 Glucose (Glutose) 15 gm Q15M PRN PO DECREASED GLUCOSE; Start 06/18/17 at 21:00 Glucose (Glutose) 22.5 gm Q15M PRN PO DECREASED GLUCOSE; Start 06/18/17 at 21: 00 Dextrose (D50w Syringe) 25 ml Q15M PRN IV DECREASED GLUCOSE; Start 06/18/17 at 21:00 Dextrose (D50w Syringe) 50 ml Q15M PRN IV DECREASED GLUCOSE; Start 06/18/17 at 21:00 Glucagon (Glucagen) 1 mg Q15M PRN IM DECREASED GLUCOSE; Start 06/18/17 at 21:00 Glucose (Glutose) 15 gm Q15M PRN BUCCAL DECREASED GLUCOSE; Start 06/18/17 at 21 :00 Lorazepam (Ativan) 1 mg Q6H PRN IV AGITATION/ANXIETY; Start 06/19/17 at 02:30 Guaifenesin/ Dextromethorphan (Robitussin Dm Liquid Cup) 5 ml Q4H PRN PO cough ; Start 06/19/17 at 12:00 Amiodarone HCl 100 mg 100 mg DAILY PO Last administered on 06/24/17 08:52; Admin Dose 100 MG; Start 06/22/17 at 09:00 Ferric Sodium Gluconate Complex/ Sodium Chloride (Ferrlecit/NS) 110 ml @ 110 mls/hr Q24H IVPB Last administered on 06/24/17 10:57; Admin Dose 110 MLS/HR; Start 06/22/17 at 10:00; Stop 06/26/17 at 10:59 COLIN BERGERON MD Jun 24, 2017 15:59
[2017-06-24] MEDS ORDERED: MAGNESIUM SULFATE 1 GM/D5W 100 ML IVPB ONE (16:30)
[2017-06-24] MEDS: SPIRONOLACTONE 25 MG TAB PO SCH (16:39)
--- NOTE | 2017-06-24 16:50 | PN ---
Date/Time of Note Date/Time of Note DATE: 06/24/17 TIME: 16:48 Assessment/Plan VTE Prophylaxis VTE Prophylaxis Intervention: ambulation Lines/Catheters [facility] Type [facility] Saline Lock Assessment/Plan Chief Complaint/Hosp Course 66 yo male wtih chronic systolic CHF, CKD III, DMII presenting with acute on chronic CHF exacerbation Acute on chronic decompensated systolic CHF: - Continue bumex, cards added aldactone today - EMMIE/graciela indicated for cardiomyopathy though limited by CKD - Continue Coreg 3.25, isosorbide THEO on CKD III - Expect some further imrpovement with diuresis - Monitor creatinine Permanent Atrial Fibrillation: - Continue AC w apixaban, adequately rate controlled Anemia of CKD: - IV iron - EPO DMII: - Continue basal/bolus insulin, sugars well controlled per cards. DC tomorrow if stable. Problems: Subjective 24 Hr Interval Summary Free Text/Dictation icelandic speaking only, stage producer phone used, no acute complaints Exam/Review of Systems Vital Signs Vitals Vital Signs Date Time Temp Pulse Resp B/P Pulse Ox O2 Delivery O2 Flow Rate FiO2 06/24/17 16:13 60 06/24/17 16:08 97.0 18 109/60 98 Intake and Output 06/23/17 06/23/17 06/24/17 14:59 22:59 06:59 Intake Total 100 ml 850 ml 250 ml Output Total 1000 ml 1050 ml Balance 100 ml -150 ml -800 ml Exam Physical exam General: Patient is laying in bed and answers questions appropriately Mentation: Patient is alert and oriented 4, Head: Normocephalic atraumatic Eyes: EOMI, pupils reactive to light Neck: Supple, nontender, midline Respiratory: Clear to auscultation bilaterally Cardiovascular: regular rate, no obvious murmurs Gastrointestinal: non-tender to palpation, bowel sounds heard. Neurological: Moves all extremities spontaneously Skin: No new skin lesions Results Result Diagram: 06/24/17 0557 06/24/17 0557 Results 24 hrs Laboratory Tests Test 06/23/17 17:09 06/23/17 21:43 06/24/17 05:57 06/24/17 08:15 Bedside Glucose 116 127 88 White Blood Count 5.5 Red Blood Count 2.57 L Hemoglobin 8.4 L Hematocrit 25.4 L Mean Corpuscular Volume 98.8 Mean Corpuscular Hemoglobin 32.7 Mean Corpuscular Hemoglobin Concent 33.1 Red Cell Distribution Width 14.9 H Platelet Count 216 Mean Platelet Volume 10.9 H Neutrophils % 58.1 Lymphocytes % 26.7 Monocytes % 12.3 H Eosinophils % 2.0 Basophils % 0.5 Nucleated Red Blood Cells % 0.0 Neutrophils # 3.2 Lymphocytes # 1.5 Monocytes # 0.7 Eosinophils # 0.1 Basophils # 0.0 Nucleated Red Blood Cells # 0.0 Sodium Level 143 Potassium Level 3.9 Chloride Level 102 Carbon Dioxide Level 27 Anion Gap 18 H Blood Urea Nitrogen 46 H Creatinine 2.13 H Glucose Level 77 Calcium Level 8.6 Phosphorus Level 4.0 Magnesium Level 1.9 Test 06/24/17 12:13 Bedside Glucose 96 Medications Medications Current Medications Allopurinol (Zyloprim) 300 mg DAILY PO Last administered on 06/24/17 08:50; Admin Dose 300 MG; Start 06/19/17 at 09:00 Apixaban (Eliquis) 2.5 mg BID PO Last administered on 06/18/17 22:48; Admin Dose 2.5 MG; Start 06/18/17 at 21:00; Status Future Hold Atorvastatin Calcium (Lipitor) 40 mg HS PO Last administered on 06/23/17 21:44 ; Admin Dose 40 MG; Start 06/18/17 at 21:00 Carvedilol (Coreg) 3.125 mg BID PO Last administered on 06/24/17 08:51; Admin Dose 3.125 MG; Start 06/18/17 at 21:00 Isosorbide Mononitrate (Imdur) 30 mg DAILY PO Last administered on 06/24/17 08 :50; Admin Dose 30 MG; Start 06/19/17 at 09:00 Ondansetron HCl (Zofran Inj) 4 mg Q6H PRN IV NAUSEA AND/OR VOMITING; Start at 20:30 Acetaminophen (Tylenol Tab) 650 mg Q6H PRN PO PAIN LEVEL 1-3 OR FEVER Last administered on 06/24/17 08:50; Admin Dose 650 MG; Start 06/18/17 at 20:30 Docusate Sodium (Colace) 100 mg Q12H PRN PO CONSTIPATION; Start 06/18/17 at 20: 30 Bisacodyl (Dulcolax) 5 mg DAILY PRN PO CONSTIPATION; Start 06/18/17 at 20:30 Pantoprazole (Protonix Iv) 40 mg DAILY@06 IV Last administered on 06/24/17 06: 18; Admin Dose 40 MG; Start 06/19/17 at 06:00 Diagnostic Test (Pha) (Accu-Chek) 1 ea 02 XX ; Start 06/19/17 at 02:00 Miscellaneous Information 1 ea NOTE XX ; Start 06/18/17 at 21:00 Glucose (Glutose) 15 gm Q15M PRN PO DECREASED GLUCOSE; Start 06/18/17 at 21:00 Glucose (Glutose) 22.5 gm Q15M PRN PO DECREASED GLUCOSE; Start 06/18/17 at 21: 00 Dextrose (D50w Syringe) 25 ml Q15M PRN IV DECREASED GLUCOSE; Start 06/18/17 at 21:00 Dextrose (D50w Syringe) 50 ml Q15M PRN IV DECREASED GLUCOSE; Start 06/18/17 at 21:00 Glucagon (Glucagen) 1 mg Q15M PRN IM DECREASED GLUCOSE; Start 06/18/17 at 21:00 Glucose (Glutose) 15 gm Q15M PRN BUCCAL DECREASED GLUCOSE; Start 06/18/17 at 21 :00 Lorazepam (Ativan) 1 mg Q6H PRN IV AGITATION/ANXIETY; Start 06/19/17 at 02:30 Guaifenesin/ Dextromethorphan (Robitussin Dm Liquid Cup) 5 ml Q4H PRN PO cough ; Start 06/19/17 at 12:00 Amiodarone HCl 100 mg 100 mg DAILY PO Last administered on 06/24/17 08:52; Admin Dose 100 MG; Start 06/22/17 at 09:00 Ferric Sodium Gluconate Complex/ Sodium Chloride (Ferrlecit/NS) 110 ml @ 110 mls/hr Q24H IVPB Last administered on 06/24/17 10:57; Admin Dose 110 MLS/HR; Start 06/22/17 at 10:00; Stop 06/26/17 at 10:59 Bumetanide (Bumex) 2 mg DAILY PO ; Start 06/25/17 at 09:00 Spironolactone 12.5 mg 12.5 mg DAILY PO Last administered on 06/24/17 16:39; Admin Dose 12.5 MG; Start 06/24/17 at 16:00 Magnesium Sulfate/ Dextrose (Magnesium Sulfate 1 Gm/D5W) 100 ml @ 100 mls/hr ONCE ONCE IVPB ; Start 06/24/17 at 16:30; Stop 06/24/17 at 17:29 TOREY SALEEM Jun 24, 2017 16:49
[2017-06-24] MEDS: ATORVASTATIN 40 MG TAB PO SCH (21:00)
[2017-06-25] VITALS (8 sets, daily range): BP systolic 102–112; BP diastolic 59–68; PULSE 60; RESP 17–18
[2017-06-25] MEDS: ACCU-CHEK XX SCH (02:00)
[2017-06-25] MEDS: PANTOPRAZOLE 40 MG INJ IV SCH (06:15)
[2017-06-25] MEDS: ACETAMINOPHEN 325 MG TAB PO PRN (06:21)
[2017-06-25 07:24] LABS: MAGNESIUM 2.1 mg/dl (1.7-2.5); PHOSPHORUS 4.5 mg/dl (2.5-4.9)
[2017-06-25 07:25] LABS: ALBUMIN 3.2 g/dl (3.3-4.9); ALBUMIN/GLOBULIN RATIO 0.91; BILIRUBIN,INDIRECT 0.4 mg/dl (0-1.1); BILIRUBIN,TOTAL 0.4 mg/dl (0.2-1.3); CALCIUM 8.5 mg/dl (8.4-10.2); CREATININE 2.35 mg/dl (0.61-1.24); POTASSIUM 3.9 mmol/L (3.5-5.1); TOTAL PROTEIN 6.7 g/dl (6.1-8.1)
[2017-06-25] MEDS: INSULIN ASPART [NOVOLOG] 3 ML PEN SC SCH ×2 (07:55→11:39)
[2017-06-25] MEDS: ISOSORBIDE MONONITRATE(SR)30 MG TAB PO SCH (08:57)
[2017-06-25] MEDS ORDERED: BUMETANIDE 1 MG TAB PO SCH ×2 (09:00→10:00)
[2017-06-25] MEDS: SPIRONOLACTONE 25 MG TAB PO SCH (09:11)
[2017-06-25] MEDS: AMIODARONE 200 MG TAB PO SCH (09:12)
[2017-06-25] MEDS: ALLOPURINOL 300 MG TAB PO SCH (09:12)
--- NOTE | 2017-06-25 09:40 | RADRPT ---
PROCEDURE: Chest Radiograph. CLINICAL INDICATION: CHF TECHNIQUE: Single frontal chest radiograph. COMPARISON: Chest radiograph 06/21/2017 FINDINGS: A left chest wall dual lead implantable pacer/defibrillator remains in place. The heart is enlarged . Atherosclerotic calcifications are present. There is a trace left pleural effusion with adjacent atelectasis/infiltrate. There is a small right pleural effusion with adjacent atelectasis/infiltra te . The appearance is unchanged compared to prior radiograph. The bones are intact. IMPRESSION: 1. Stable radiographic appearance of the chest compared 06/21/2017. RPTAT: KK .Arnaldo Stubbs MD, MD Date Time Electronically viewed and signed by .Arnaldo Stubbs MD, MD on 06/25/2017 09:40 .B/
[2017-06-25] MEDS: SOD FERRIC GLUC COMPLX 125 MG in SOD CHLORIDE 0.9% 100 ML IVPB SCH (10:04)
--- NOTE | 2017-06-25 10:42 | PN ---
DATE: 06/25/2017 SUBJECTIVE DATA: The patient is clinically improving. NO other acute events overnight. No fevers, chills, nausea, vomiting. OBJECTIVE DATA: VITAL SIGNS: Blood pressure 102/59, respirations 17, pulse 60, temperature 98.6. HEENT: Head is normocephalic. NECK: Supple. HEART: Regular rate. LUNGS: Diminished breath sounds at the bases. ABDOMEN: Soft, nontender to palpation. No rebound or guarding. EXTREMITIES: Negative for clubbing, cyanosis. No edema. DERMATOLOGIC: No rashes. MUSCULOSKELETAL: No joint effusion. NEUROLOGIC: No change in exam. Patient's medications been reviewed. LABORATORY AND DIAGNOSTIC DATA: Sodium 141, potassium 3.9. BUN 45, creatinine 10.35. White count 5.5, hemoglobin 8.4, hematocrit 25.4. Platelet count is 216. ASSESSMENT AND PLAN: 1. Nonoliguric acute kidney injury on top of chronic kidney disease stage 3 with previous baseline creatinine 1.5 mg/dL. The etiology of current acute kidney injury secondary to cardiorenal syndrome. The patient's renal function initially has improved; however, it has declined in the last 72 hours. At this point, will deescalate Bumex to 1 mg p.o. daily. Monitor renal function closely. If renal function should further decline, would consider holding diuretic therapy in order to enable fluid to mobilize. Would otherwise continue current treatment plan, supportive care, and renally does all medications. 2. Anemia. Will monitor hemoglobin and hematocrit levels. Continue IV Ferrlecit. 3. Mineral bone disorder. Continue to monitor calcium and phosphorus levels. 4. Decompensated congestive heart failure. The patient is clinically improving, near euvolemic. Continue current medical management. Continue diuretic therapy. Follow up with Cardiology. 5. Diabetes. Continue current insulin regimen. 6. Paroxysmal atrial fibrillation, currently in sinus rhythm. 7. History of pulmonary hypertension. Dictated By: James Savage DO /yasmani/jeromy /Document#: [id number]
--- NOTE | 2017-06-25 11:57 | PDOCDIS ---
Discharge Instructions CONDITION Patient Condition: Stable HOME CARE INSTRUCTIONS: Diet Instructions: Reduced SodiumSpecial Diet: DIABETIC DIET. FOLLOW UP/APPOINTMENTS Follow-up Plan Please follow up with Dr. Macias and Dr. Savage within 1 week. TOREY SALEEM Jun 25, 2017 11:57
[2017-06-25] MEDS ORDERED: AMIO100T4 PO (12:05)
[2017-06-25] MEDS ORDERED: ATOR40TA68 PO (12:05)
[2017-06-25] MEDS ORDERED: CARV3.1260 PO (12:05)
[2017-06-25] MEDS ORDERED: ALLO300T2 PO (12:05)
[2017-06-25] MEDS ORDERED: SPIR25TA PO (12:05)
[2017-06-25] MEDS ORDERED: ISOS30TA5 PO (12:05)
[2017-06-25] MEDS ORDERED: BUME1TAB18 PO (12:05)
--- NOTE | 2017-06-25 12:17 | DS ---
Date/Time of Note Date/Time of Note DATE: 06/25/17 TIME: 12:15 Discharge Summary Admission/Discharge Info Admit Date/Time Jun 18, 2017 at 19:35 Discharge Date/Time Hx of Present Illness Chief complaint: Shortness of breath This 66-year-old male presents for shortness of breath increasing for the last few days. States he currently does not have any pain he only has shortness of breath. He is on on Lasix at home and has been taking them normally. He has had no fevers or chills. As per patient's records this will be his fourth admission for CHF in this past year or so. His most recent echocardiogram which was done in February 2017 showed an ejection fraction of 30-35%. He also follows with Dr. Crouch for his chronic kidney disease. He does not report any recent alcohol use. Allergies: NKDA Medications: See [facility] Hospital Course Acute on chronic decompensated systolic congestive heart failure Acute kidney injury on chronic kidney disease Chronic kidney disease Atrial fibrillation Severe anemia Diabetes mellitus Shortness of breath Patient is a 66-year-old [place] male with a past medical history of congestive heart failure and chronic kidney disease who presents to [facility] for worsening shortness of breath. Patient was admitted and evaluated in the ED and was placed on diuretic therapy. Cardiology was consulted at this time which adjusted medications. Nephrology was also consulted due to acute kidney injury on chronic kidney disease. Over the course of a few days patient' s breathing status significantly improved and with adjustments to his medications which included reduction of Bumex and addition of Aldactone, patient will be discharged safely. Patient is to follow-up with his window cutter and patient scheduling coordinator within 1 week. It is of note that Eliquis was stopped by the cardiology due to patient's severe anemia. It was thoroughly explained to the patient that he needs to get anemia workup as soon as possible and to restart Eliquis upon approval of his window cutter. Home Meds Active Scripts Allopurinol* (Allopurinol*) 300 Mg Tablet, 300 MG PO DAILY for 30 Days, #30 TAB Prov:TOREY SALEEM 06/25/17 Bumetanide* (Bumetanide*) 1 Mg Tablet, 1 MG PO DAILY for 30 Days, #30 TAB Prov:TOREY SALEEM 06/25/17 Spironolactone* (Aldactone*) 25 Mg Tablet, 12.5 MG PO DAILY for 30 Days, #15 TAB 2 Refills Prov:TOREY SALEEM J 06/25/17 Amiodarone Hcl* (Amiodarone Hcl*) 100 Mg Tablet, 100 MG PO DAILY, #30 TAB Prov:TOREY SALEEM J 06/25/17 Isosorbide Mononitrate* (Isosorbide Mononitrate*) 30 Mg Tab.er.24h, 30 MG PO DAILY for 30 Days, #30 Prov:TOREY SALEEM J 06/25/17 Carvedilol* (Carvedilol*) 3.125 Mg Tablet, 3.125 MG PO BID for 30 Days, #60 TAB Prov:TOREY SALEEM J 06/25/17 Atorvastatin* (Atorvastatin*) 40 Mg Tablet, 40 MG PO HS for 30 Days, #30 TAB Prov:TOREY SALEEM J 06/25/17 Discontinued Reported Medications Amiodarone Hcl* (Amiodarone Hcl*) 200 Mg Tablet, 200 MG PO DAILY, #30 TAB 06/18/17 Bumetanide* (Bumetanide*) 2 Mg Tablet, 2 MG PO BID, TAB 06/18/17 Isosorbide Mononitrate* (Isosorbide Mononitrate*) 30 Mg Tab.er.24h, 30 MG PO DAILY, TAB 01/07/17 Apixaban* (Eliquis*) 2.5 Mg Tablet, 2.5 MG PO BID, TAB 01/07/17 Allopurinol* (Allopurinol*) 300 Mg Tablet, 300 MG PO DAILY, TAB 01/07/17 Atorvastatin* (Atorvastatin*) 40 Mg Tablet, 40 MG PO HS, TAB 09/07/14 Metoclopramide Hcl* (Metoclopramide Hcl*) 10 Mg Tablet, 10 MG PO TID, TAB 03/13/17 Discontinued Scripts Carvedilol* (Carvedilol*) 3.125 Mg Tablet, 3.125 MG PO BID for 30 Days, #60 TAB Prov:JULIO SAVAGE 03/21/17 Spironolactone* (Aldactone*) 25 Mg Tablet, 25 MG PO DAILY for 30 Days, #30 TAB Prov:JULIO SAVAGE 03/21/17 Pantoprazole* (Pantoprazole*) 40 Mg Tablet.dr, 40 MG PO BID@06,18 for 30 Days Prov:ANDIE ISIDRO 01/14/17 Ferrous Sulfate* (Ferrous Sulfate*) 325 Mg Tabec, 325 MG PO TID for 30 Days, TAB Prov:ANDIE ISIDRO 01/14/17 Carvedilol* (Carvedilol*) 3.125 Mg Tablet, 1.5625 MG PO BID for 30 Days, TAB Prov:ANDIE ISIDRO 01/14/17 Bumetanide* (Bumetanide*) 1 Mg Tablet, 1 MG PO BID for 30 Days, TAB Prov:ANDIE ISIDRO 01/14/17 Amiodarone Hcl* (Amiodarone Hcl*) 200 Mg Tablet, 100 MG PO DAILY for 30 Days, TAB Prov:ANDIE ISIDRO 01/14/17 Primary Care Provider Care Physician No Primary Time spent on discharge: > 30 minutes Pending Labs Laboratory Tests Test 06/24/17 17:36 06/24/17 21:50 06/25/17 06:17 06/25/17 06:33 Bedside Glucose 104mg/dL (70-220) 147mg/dL (70-220) Sodium Level 141mmol/L (135-144) Potassium Level 3.9mmol/L (3.5-5.1) Chloride Level 101mmol/L (97-110) Carbon Dioxide Level 27mmol/L (21-31) Anion Gap 17 (8-16) Blood Urea Nitrogen 45mg/dl (7-20) Creatinine 2.35mg/dl (0.61-1.24) Glucose Level 77mg/dl (70-220) Calcium Level 8.5mg/dl (8.4-10.2) Total Bilirubin 0.4mg/dl (0.2-1.3) Direct Bilirubin 0.00mg/dl (0.00-0.20) Indirect Bilirubin 0.4mg/dl (0-1.1) Aspartate Amino Transf (AST/SGOT) 30IU/L (15-46) Alanine Aminotransferase (ALT/SGPT) 34IU/L (13-69) Alkaline Phosphatase 185IU/L (42-121) B-Type Natriuretic Peptide 4300PG/ML (0-125) Total Protein 6.7g/dl (6.1-8.1) Albumin 3.2g/dl (3.3-4.9) Globulin 3.50g/dl (1.3-3.2) Albumin/Globulin Ratio 0.91 Phosphorus Level 4.5mg/dl (2.5-4.9) Magnesium Level 2.1mg/dl (1.7-2.5) Test 06/25/17 07:52 06/25/17 11:30 Bedside Glucose 82mg/dL (70-220) 147mg/dL (70-220) TOREY SALEEM Jun 25, 2017 12:17
--- NOTE | 2017-06-25 13:51 | PN ---
Date/Time of Note Date/Time of Note DATE: 06/25/17 TIME: 13:50 Assessment/Plan VTE Prophylaxis VTE Prophylaxis Intervention: other Lines/Catheters IV [facility]ter Type (from [facility]): Saline Lock Assessment/Plan Chief Complaint/Hosp Course ASSESSMENT AND PLAN: 1. Congestive heart failure, acute on chronic, secondary to systolic dysfunction. 2. Renal failure, acute on chronic: slowly improving 3. Paroxsymal atrial fibrillation.: currently stable in NSR/ AV paced. 4. Status post Bi-V ICD. 5. History of liver cirrhosis. 6. Severe anemia. 7. Diabetes. 8. History of coronary artery disease. 9. History of percutaneous coronary intervention (PCI). 10. Dyslipidemia, under control. 11. Pleural effusion: s/p thoracentesis. RECOMMENDATIONS: I will cont amiodarone 100 mg po qd for now po bumex 2 mg po qd only, + aldactone We will monitor his renal function. Renal consult appreciated. d/w Dr. Savage Statins will be continued. Coreg at the current dose will be continued. Diabetic management as per Internal Medicine. Potassium to be replaced prn. Continue to monitor on telemetry. Thank you Problems: Subjective 24 Hr Interval Summary Free Text/Dictation CARDIOLOGY FOLLOW UP NOTE: d/w staff and rhythm was reviewed. pt remains in Paced rhythm no chest pain or pressure or palpitations breathing is improving OBJECTIVE: HEENT: Normocephalic, atraumatic. Eyes pupils are equal and round. NECK: Supple, positive for JVD. CARDIOVASCULAR: RRR. systolic murmur. PULMONARY: mild rhochi. CHEST: Status post ICD with no bleeding or hematoma. GASTROINTESTINAL: Soft, nontender. Positive for ascites. no rebound or guarding . EXTREMITIES: TRACE B/L ankle edema. NEUROLOGIC: Awake and alert. PSYCHIATRIC: Calm and pleasant. Exam/Review of Systems Vital Signs Vitals Vital Signs Date Time Temp Pulse Resp B/P Pulse Ox O2 Delivery O2 Flow Rate FiO2 06/25/17 12:39 60 06/25/17 11:37 97.8 18 103/68 99 Intake and Output 06/24/17 06/24/17 06/25/17 15:00 23:00 07:00 Intake Total 100 ml 800 ml 650 ml Output Total 1320 ml 1100 ml Balance 100 ml -520 ml -450 ml Results Result Diagram: 06/24/17 0557 06/25/17 0617 Results 24 hrs Laboratory Tests Test 06/24/17 17:36 06/24/17 21:50 06/25/17 06:17 06/25/17 06:33 Bedside Glucose 104 147 Sodium Level 141 Potassium Level 3.9 Chloride Level 101 Carbon Dioxide Level 27 Anion Gap 17 H Blood Urea Nitrogen 45 H Creatinine 2.35 H Glucose Level 77 Calcium Level 8.5 Total Bilirubin 0.4 Direct Bilirubin 0.00 Indirect Bilirubin 0.4 Aspartate Amino Transf (AST/SGOT) 30 Alanine Aminotransferase (ALT/SGPT) 34 Alkaline Phosphatase 185 H B-Type Natriuretic Peptide 4300 H Total Protein 6.7 Albumin 3.2 L Globulin 3.50 H Albumin/Globulin Ratio 0.91 Phosphorus Level 4.5 Magnesium Level 2.1 Test 06/25/17 07:52 06/25/17 11:30 Bedside Glucose 82 147 Medications Medications Current Medications Allopurinol (Zyloprim) 300 mg DAILY PO Last administered on 06/25/17 09:12; Admin Dose 300 MG; Start 06/19/17 at 09:00 Apixaban (Eliquis) 2.5 mg BID PO Last administered on 06/18/17 22:48; Admin Dose 2.5 MG; Start 06/18/17 at 21:00; Status Future Hold Atorvastatin Calcium (Lipitor) 40 mg HS PO Last administered on 06/24/17 21:00 ; Admin Dose 40 MG; Start 06/18/17 at 21:00 Carvedilol (Coreg) 3.125 mg BID PO Last administered on 06/25/17 11:40; Admin Dose 3.125 MG; Start 06/18/17 at 21:00 Isosorbide Mononitrate (Imdur) 30 mg DAILY PO Last administered on 06/24/17 08 :50; Admin Dose 30 MG; Start 06/19/17 at 09:00 Ondansetron HCl (Zofran Inj) 4 mg Q6H PRN IV NAUSEA AND/OR VOMITING; Start at 20:30 Acetaminophen (Tylenol Tab) 650 mg Q6H PRN PO PAIN LEVEL 1-3 OR FEVER Last administered on 06/25/17 06:21; Admin Dose 650 MG; Start 06/18/17 at 20:30 Docusate Sodium (Colace) 100 mg Q12H PRN PO CONSTIPATION; Start 06/18/17 at 20: 30 Bisacodyl (Dulcolax) 5 mg DAILY PRN PO CONSTIPATION; Start 06/18/17 at 20:30 Pantoprazole (Protonix Iv) 40 mg DAILY@06 IV Last administered on 06/25/17 06: 15; Admin Dose 40 MG; Start 06/19/17 at 06:00 Diagnostic Test (Pha) (Accu-Chek) 1 ea 02 XX ; Start 06/19/17 at 02:00 Miscellaneous Information 1 ea NOTE XX ; Start 06/18/17 at 21:00 Glucose (Glutose) 15 gm Q15M PRN PO DECREASED GLUCOSE; Start 06/18/17 at 21:00 Glucose (Glutose) 22.5 gm Q15M PRN PO DECREASED GLUCOSE; Start 06/18/17 at 21: 00 Dextrose (D50w Syringe) 25 ml Q15M PRN IV DECREASED GLUCOSE; Start 06/18/17 at 21:00 Dextrose (D50w Syringe) 50 ml Q15M PRN IV DECREASED GLUCOSE; Start 06/18/17 at 21:00 Glucagon (Glucagen) 1 mg Q15M PRN IM DECREASED GLUCOSE; Start 06/18/17 at 21:00 Glucose (Glutose) 15 gm Q15M PRN BUCCAL DECREASED GLUCOSE; Start 06/18/17 at 21 :00 Lorazepam (Ativan) 1 mg Q6H PRN IV AGITATION/ANXIETY; Start 06/19/17 at 02:30 Guaifenesin/ Dextromethorphan (Robitussin Dm Liquid Cup) 5 ml Q4H PRN PO cough ; Start 06/19/17 at 12:00 Amiodarone HCl 100 mg 100 mg DAILY PO Last administered on 06/25/17 09:12; Admin Dose 100 MG; Start 06/22/17 at 09:00 Ferric Sodium Gluconate Complex/ Sodium Chloride (Ferrlecit/NS) 110 ml @ 110 mls/hr Q24H IVPB Last administered on 06/25/17 10:04; Admin Dose 110 MLS/HR; Start 06/22/17 at 10:00; Stop 06/26/17 at 10:59 Spironolactone (Aldactone) 12.5 mg DAILY PO Last administered on 06/25/17 09:11 ; Admin Dose 12.5 MG; Start 06/24/17 at 16:00 Bumetanide (Bumex) 1 mg DAILY PO Last administered on 06/25/17t 10:02; Admin Dose 1 MG; Start 06/25/17 at 10:00 COLIN BERGERON MD Jun 25, 2017 13:51
== END 2017-06-25 14:30 | disposition home or self-care (01) | DRG 291 ==
LOC: E/R 16:45 → TEL 19:35
PROVIDERS: ADMIT Family Medicine; ATTEND Family Medicine
PROC: 0W9B3ZZ Drainage of Left Pleural Cavity, Percutaneous Approach (ICD-10-PCS; principal; 2017-06-20)
DX: I13.0 Hypertensive heart and chronic kidney disease with heart failure and stage 1 through stage 4 chronic kidney disease, or unspecified chronic kidney disease (principal); I50.23 Acute on chronic systolic (congestive) heart failure; N17.9 Acute kidney failure, unspecified; E11.22 Type 2 diabetes mellitus with diabetic chronic kidney disease; J90 Pleural effusion, not elsewhere classified; N18.3 Chronic kidney disease, stage 3 (moderate); K74.60 Unspecified cirrhosis of liver; I48.0 Paroxysmal atrial fibrillation; I25.10 Atherosclerotic heart disease of native coronary artery without angina pectoris; I27.2 Other secondary pulmonary hypertension; D50.9 Iron deficiency anemia, unspecified; D63.1 Anemia in chronic kidney disease; E78.5 Hyperlipidemia, unspecified; Z98.61 Coronary angioplasty status; Z95.810 Presence of automatic (implantable) cardiac defibrillator; Z79.02 Long term (current) use of antithrombotics/antiplatelets; Z79.4 Long term (current) use of insulin
CPT/HCPCS: 32555; 36415; 71010; 80048; 80053; 80061; 80306; 81003; 82550; 82553; 82607; 82728; 82746; 82962; 83036; 83540; 83605; 83690; 83735; 83880; 84100; 84425; 84439; 84443; 84484; 85025; 85610; 85730; 93005; 96374; C9113; J1815; J1940; J2405; J2916; J3475

== ENCOUNTER 2017-09-23 16:48 | Inpatient (IN) | payer MEDICARE, OTHER ==
[~2017-09-23] VITALS: Ht 167.6 cm; Wt 60.6 kg
[~2017-09-23 16:48] MED LIST changes: +AMIO100T4 PO; -AMIO200T2 PO; -APIX2.5T PO; -FER325 PO; -METO10TA96 PO; -PANT40TA4 PO
--- NOTE | 2017-09-23 19:10 | RADRPT ---
PROCEDURE: XR Chest. CLINICAL INDICATION: Chest Pain. TECHNIQUE: Single frontal view of the chest was obtained COMPARISON: 06/25/2017 FINDINGS: Atherosclerotic changes are seen in the aortic arch. The heart remains enlarged. Left subclavian pacemaker is again seen. There has been slight improvement to the right pleural effusion which is now moderate. There is asso ciated compressive atelectasis. There is patchy left basilar atelectasis. The left lung is otherwise clear. A small left pleural effusion is again seen. IMPRESSION: 1. Slight improvement to a the right pleural effusion which is now moderate. There is associated co mpressive atelectasis. 2. Patchy left basilar atelectasis with a small left pleural effusion. RPTAT:AAJJ Physician Carter Date Time Electronically viewed and signed by Richard Suresh Physician on 09/23/2017 19:09 /
--- NOTE | 2017-09-23 19:19 | ERD ---
ER Documentation Chief Complaint Chief Complaint sob x 1 week, bilateral leg swelling x 2 days HPI This is a 66-year-old male with a past medical history of colon cancer status post resection now in remission, atrial fibrillation on amiodarone status post pacemaker placement currently being paced, congestive heart failure who is presenting with cough and shortness of breath over the last week, worsening over the last 2 days, with bilateral lower extremity edema, right worse than left. He also has had cold-like symptoms with congestion over the last several days. The patient's cough is congested, but he does not endorse productive sputum. The patient denies feeling sick recently. The patient denies fever or chills. The patient has had no headache or vision changes. The patient does not endorse neck or back pain. The patient denies lightheadedness or dizziness. The patient has had no chest pain or shortness of breath or trouble breathing. The patient denies nausea or vomiting. The patient denies abdominal pain or changes to bowel movements or urination. The patient has had no focal deficits. The patient has had no weakness or numbness or tingling to the face or extremities. ROS All systems reviewed and are negative except as per history of present illness. Medications Home Meds Active Scripts Allopurinol* (Allopurinol*) 300 Mg Tablet, 300 MG PO DAILY for 30 Days, #30 TAB Prov:TOREY SALEEM 06/25/17 Reported Medications Carvedilol* (Carvedilol*) 3.125 Mg Tablet, 3.125 MG PO BID, #60 TAB 09/23/17 Bumetanide* (Bumetanide*) 2 Mg Tablet, 2 MG PO BID, TAB 09/23/17 Atorvastatin* (Atorvastatin*) 40 Mg Tablet, 40 MG PO QHS, #30 TAB 09/23/17 Amiodarone Hcl* (Amiodarone Hcl*) 200 Mg Tablet, 200 MG PO DAILY, #30 TAB 09/23/17 Apixaban* (Eliquis*) 2.5 Mg Tablet, 2.5 MG PO BID, TAB 09/23/17 Discontinued Scripts Bumetanide* (Bumetanide*) 1 Mg Tablet, 1 MG PO DAILY for 30 Days, #30 TAB Prov:TOREY SALEEM 06/25/17 Spironolactone* (Aldactone*) 25 Mg Tablet, 12.5 MG PO DAILY for 30 Days, #15 TAB 2 Refills Prov:TOREY SALEEM 06/25/17 Amiodarone Hcl* (Amiodarone Hcl*) 100 Mg Tablet, 100 MG PO DAILY, #30 TAB Prov:TOREY SALEEM 06/25/17 Isosorbide Mononitrate* (Isosorbide Mononitrate*) 30 Mg Tab.er.24h, 30 MG PO DAILY for 30 Days, #30 Prov:TOREY SALEEM 06/25/17 Carvedilol* (Carvedilol*) 3.125 Mg Tablet, 3.125 MG PO BID for 30 Days, #60 TAB Prov:TOREY SALEEM 06/25/17 Atorvastatin* (Atorvastatin*) 40 Mg Tablet, 40 MG PO HS for 30 Days, #30 TAB Prov:TOREY SALEEM 06/25/17 Allergies Allergies: Coded Allergies: No Known Allergy (Unverified , 09/23/17) PMhx/Soc History of Surgery: Yes (Colon cancer surgery) Anesthesia Reaction: No Hx Neurological Disorder: No Hx Respiratory Disorders: Yes (Recurrent pleural effusions, dyspnea) Hx Cardiac Disorders: Yes (A FIB, HTN, CHF) Hx Psychiatric Problems: No Hx Miscellaneous Medical Probl: Yes (Previous colon cancer) Hx Alcohol Use: No Hx Substance Use: No Hx Tobacco Use: No Smoking Status: Never smoker FmHx Family History: No diabetes Physical Exam Vitals Vital Signs Date Time Temp Pulse Resp B/P Pulse Ox O2 Delivery O2 Flow Rate FiO2 09/23/17 21:24 63 20 120/73 100 Room Air 09/23/17 20:01 60 20 112/69 100 Room Air 09/23/17 16:56 98.6 60 20 102/59 99 Physical Exam Const: No apparent distress, well-developed, cachectic Head: Atraumatic Eyes: Normal Conjunctiva. Extraocular movements intact. ENT: Normal External Ears, Nose. Dry mucous membranes Neck: Full range of motion. ~ No meningismus. Resp: Bibasilar rales, worse on the right. Rhonchi on the right Cardio: Regular rate and rhythm, no murmurs Abd: Soft, non tender, non distended. Normal bowel sounds Skin: No petechiae or rashes Back: No midline or flank tenderness Ext: No cyanosis, or edema Neur: Awake and alert, oriented 4. Cranial nerves intact. No facial droop. Normal strength and sensation in all extremities. Coordination with finger to nose normal. Psych: Normal Mood and Affect Result Diagram: 09/23/17192709/23/171927 Results 24 hrs Laboratory Tests Test 09/23/17 19:28 White Blood Count 6.410^3/ul Red Blood Count 2.7910^6/ul Hemoglobin 9.0g/dl Hematocrit 27.6% Mean Corpuscular Volume 98.9fl Mean Corpuscular Hemoglobin 32.3pg Mean Corpuscular Hemoglobin Concent 32.6g/dl Red Cell Distribution Width 14.6% Platelet Count 11645^3/UL Mean Platelet Volume 11.0fl Neutrophils % 66.0% Lymphocytes % 18.2% Monocytes % 10.2% Eosinophils % 4.2% Basophils % 0.8% Nucleated Red Blood Cells % 0.0/100WBC Neutrophils # 4.210^3/ul Lymphocytes # 1.210^3/ul Monocytes # 0.710^3/ul Eosinophils # 0.310^3/ul Basophils # 0.110^3/ul Nucleated Red Blood Cells # 0.010^3/ul Prothrombin Time 16.9Sec Prothrombin Time Ratio 1.3 INR International Normalized Ratio 1.37 Sodium Level 140mmol/L Potassium Level 3.6mmol/L Chloride Level 101mmol/L Carbon Dioxide Level 28mmol/L Anion Gap 15 Blood Urea Nitrogen 83mg/dl Creatinine 2.48mg/dl Glucose Level 137mg/dl Calcium Level 8.2mg/dl Total Bilirubin 0.2mg/dl Direct Bilirubin 0.00mg/dl Indirect Bilirubin 0.2mg/dl Aspartate Amino Transf (AST/SGOT) 30IU/L Alanine Aminotransferase (ALT/SGPT) 32IU/L Alkaline Phosphatase 299IU/L Troponin I < 0.012ng/ml B-Type Natriuretic Peptide 87502UH/ML Total Protein 7.1g/dl Albumin 3.6g/dl Globulin 3.50g/dl Albumin/Globulin Ratio 1.02 Current Medications Medications (Trade) Dose Ordered Sig/[place] Route PRN Reason Start Time Stop Time Status Last Admin Dose Admin Bumetanide (Bumex) 1 mg NOW ONCE IV 09/23/17 21:00 09/23/17 21:01 DC 09/23/17 21:10 Ondansetron HCl (Zofran Inj) 4 mg ER BRIDGE PRN IV NAUSEA AND/OR VOMITING 09/23/17 21:30 09/24/17 21:29 Acetaminophen (Tylenol Tab) 650 mg ER BRIDGE PRN PO MILD PAIN/FEVER 09/23/17 21:30 09/24/17 21:29 Procedures/MDM MDM The patient's presentation warrants further investigation. I do suspect heart failure in this patient as he has bibasilar rales, dyspnea and bilateral lower extremity edema. Patient will receive a cardiopulmonary workup. He also has a history of bilateral pleural effusions, which could be a confounding factor regarding his dyspnea. The patient has multiple possible etiologies of his dyspnea, pulmonary embolism is possible, but I suspect that is lower on the list. That said, the patient does have asymmetric swelling with the right lower extremity more swollen than the left. I will order a lower extremity Doppler. The patient does also have URI type symptoms, which could be a factor as well. LABS The patient's blood work was obtained and reviewed. The patient's CBC shows no leukocytosis or left shift. The patient is afebrile and does not appear systemically ill. I do not suspect a systemic infection. The patient is mildly anemic, but this does not need to be emergently treated. The patient's platelet count is unremarkable. The patient's CMP elevated BUN and creatinine, but this is around his baseline. The patient's troponin is at the upper limit of normal. His BNP is almost 3 times what it was in June despite having a similar creatinine. I have higher suspicion of heart failure in this setting. EKG EKG read by me: Rate/Rhythm: Dual-chamber paced rhythm at 61 bpm Intervals: Normal DE interval, widened QRS, QT is less than sent of the RR interval [place]: Determinate Impression: No evidence of ischemia or arrhythmia IMAGING CXR IMPRESSION: 1. Slight improvement to a the right pleural effusion which is now moderate. There is associated compressive atelectasis. 2. Patchy left basilar atelectasis with a small left pleural effusion. Electronically viewed and signed by Richard Suresh Physician on 09/23/2017 19: 09 RLE Doppler FINDINGS: There is normal compressibility and flow within the right common femoral, superficial femoral and popliteal veins. Antegrade flow seen in the posterior tibial and peroneal veins. IMPRESSION: No sonographic evidence for deep venous thrombosis. Electronically viewed and signed by .Mitchell Welch MD, MD on 09/23/2017 21:23 TREATMENT/DISPOSITION The patient was given a dose of Bumex in the emergency department. I do suspect heart failure as the likely etiology of his symptoms. The patient does have URI symptoms which could have been a stress on the heart. The patient also has bilateral pleural effusions, the though these are incrementally improved from previous imaging studies. This may also be further evaluated in the hospital. If the patient is not improved in the hospital, would have higher suspicion for pulmonary embolism. However, given the more likely etiologies, I do not intend to pursue this diagnosis at this time. I feel that the patient requires admission for further evaluation and management. The patient will be admitted to panel in accordance with the patient's insurance. The patient was accepted by Dr. Rawls at 9 PM on September 23, 2017. Departure Diagnosis: Primary Impression: CHF exacerbation Congestive heart failure type: unspecified congestive heart failure type Qualified Code: I50.9 - Acute on chronic congestive heart failure, unspecified congestive heart failure type Additional Impressions: Bilateral pleural effusion Cough Lower extremity edema Condition: JAUN Dumont MD Sep 23, 2017 19:19
[2017-09-23] MEDS ORDERED: APIX2.5T PO (19:28)
[2017-09-23] MEDS ORDERED: AMIO200T2 PO (19:28)
[2017-09-23] MEDS ORDERED: ATOR40TA68 PO (19:29)
[2017-09-23] MEDS ORDERED: BUME2TAB18 PO (19:29)
[2017-09-23] MEDS ORDERED: CARV3.1260 PO (19:30)
[2017-09-23] MEDS ORDERED: BUMETANIDE 1 MG INJ IV ONE (21:00)
--- NOTE | 2017-09-23 21:24 | RADRPT ---
PROCEDURE: US Lower extremity Venous. CLINICAL INDICATION: Lower extremity pain and swelling TECHNIQUE: Multiple sonographic images of the right lower extremity deep venous system was obtaine d utilizing grayscale, color-flow, compressive sonography and doppler imaging with augmentation. Th e images were reviewed on a PACS workstation. COMPARISON: None. FINDINGS: There is normal compressibility and flow within the right common femoral, superficial femoral and po pliteal veins. Antegrade flow seen in the posterior tibial and peroneal veins. IMPRESSION: No sonographic evidence for deep venous thrombosis. RPTAT: AA .Mitchell Welch MD, Date Time Electronically viewed and signed by .Mitchell Welch MD, on 09/23/2017 21:23 .P/
[2017-09-23] MEDS ORDERED: ACETAMINOPHEN 325 MG TAB PO PRN ×2 (21:30→23:00)
[2017-09-23] MEDS ORDERED: ONDANSETRON 4 MG INJ IV PRN ×2 (21:30→23:00)
[2017-09-23] MEDS ORDERED: BISACODYL (EC) 5 MG TAB PO PRN (23:00)
[2017-09-23] MEDS ORDERED: NACL 0.9% 3 ML SYG IV SCH (23:00)
[2017-09-23] MEDS ORDERED: DOCUSATE SODIUM 100 MG CAP PO PRN (23:00)
[2017-09-24] VITALS (15 sets, daily range): BP systolic 103–120; BP diastolic 55–70; PULSE 60–72; RESP 18–20; TEMP 98.1; Ht 167.6 cm; Wt 60.6 kg
--- NOTE | 2017-09-24 06:06 | HP ---
Date/Time of Note Date/Time of Note DATE: 09/24/17 TIME: 05:56 Assessment/Plan VTE Prophylaxis VTE Prophylaxis Intervention: other (Eliquis) Lines/Catheters [facility] Saline Lock Assessment/Plan Chief Complaint/Hosp Course This is a 66-year-old male being admitted to the telemetry floor for: #1 acute systolic CHF exacerbation: Patient's most recent echocardiogram in February 2017 showed an ejection fraction of 30-35%, I will repeat an echocardiogram today patient's BNP is significantly more elevated compared to his previous admission.. At the current time will provide IV diuresis with Bumex for the patient. Will trend troponins. Will consult cardiology. Will limit fluid intake to 800 cc per day. Will check strict I's and O's. I 2) Acute on Chronic Kidney Injury:, BUN/Cr = 83/2.48. This likely secondary to cardiorenal syndrome. At the current time will try to avoid nephrotoxic agents though we will be using Lasix for #1. Will consult Dr. 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 3) anemia, likely of chronic disease: Patient has a history of chronic kidney disease as well as liver cirrhosis. At the current time we will continue to monitor patient's hemoglobin. In the setting of his cardiac history we will transfuse PRBCs if his hemoglobin drops below 8. 4) Diabetes Mellitus, Type 2: We will hold oral medication at this time and continue insulin sliding scale. Will put patient on carbohydrate controlled diet. # 5 liver cirrhosis: The patient denies recent alcohol use I will check blood alcohol level. As needed Ativan for any withdrawal symptoms. If patient does indeed have elevated blood alcohol level we will also consider banana bag. Will check a thiamine folate and B12 level. #6 history of atrial fibrillation: Patient currently right now is an atrially paced rhythm. Continue Eliquis. #7 lower extremity edema: This likely secondary to #1. Right lower extremity ultrasound did not show any sign of any DVT will continue to monitor this. #7 DVT and GI prolapses: Eliquis, Protonix Further treatment strategy will be implemented as per the clinical course Problems: HPI/ROS Admit Date/Time Admit Date/Time Hx of Present Illness This is a 66-year-old male with a past medical history of colon cancer status post resection now in remission, atrial fibrillation on amiodarone status post pacemaker placement currently being paced, congestive heart failure who is presenting with cough and shortness of breath over the last week, worsening over the last 2 days, with bilateral lower extremity edema, right worse than left. He also has had cold-like symptoms with congestion over the last several days. The patient's cough is congested, but he does not endorse productive sputum. The patient denies feeling sick recently. The patient denies fever or chills. The patient has had no headache or vision changes. The patient does not endorse neck or back pain. The patient denies lightheadedness or dizziness. The patient has had no chest pain or shortness of breath or trouble breathing. The patient denies nausea or vomiting. The patient denies abdominal pain or changes to bowel movements or urination. The patient has had no focal deficits. The patient has had no weakness or numbness or tingling to the face or extremities. PMH/Family/Social Past Medical History COPD; Afib; CHF; HTN; CKD; liver cirrhosis; DM; COLON CA, cardiorenal syndrome , gout Past Surgical History pacemaker placement, COLON RESECTION R/T COLON CA, endoscopy Past Surgical Hx: endoscopy Family History Significant Family History: no pertinent family hx Social History Alcohol Use: sober Smoking Status: Never smoker Drug Use: none Exam/Review of Systems Vital Signs Vitals Vital Signs Date Time Temp Pulse Resp B/P Pulse Ox O2 Delivery O2 Flow Rate FiO2 09/24/17 05:00 60 17 113/66 100 Room Air 09/24/17 00:21 98.6 Exam Exam General: Patient is sitting upright in bed in no acute distress HEENT: Atraumatic, normocephalic. The pupils are equal, round and reactive. Extraocular motor are intact Neck: Supple with full range of motion. No rigidity or meningismus Chest: Nontender Lungs: Bilateral rales right greater than the left, good inspiratory effort Heart: Normal S1-S2, Regular rhythm and rate. No murmur, S3, or S4 Abdomen: Soft , nontender, nondistended , bowel sounds are present. No guarding no rebound tenderness , No masses or organomegaly. No costovertebral temporal angle mass Extremities: Bilateral lower extremity edema, right greater than left Neurologic: Normal mental status, speech normal, cranial nerves II through XII are intact, motor and sensory are intact, no focal weakness Additional Comments EKG : Rate/Rhythm: Dual-chamber paced rhythm at 61 bpm Intervals: Normal ND interval, widened QRS, QT is less than sent of the RR interval [place]: Determinate Impression: No evidence of ischemia or arrhythmiaPROCEDURE: XR Chest. CLINICAL INDICATION: Chest Pain. TECHNIQUE: Single frontal view of the chest was obtained COMPARISON: 06/25/2017 FINDINGS: Atherosclerotic changes are seen in the aortic arch. The heart remains enlarged. Left subclavian pacemaker is again seen. There has been slight improvement to the right pleural effusion which is now moderate. There is associated compressive atelectasis. There is patchy left basilar atelectasis. The left lung is otherwise clear. A small left pleural effusion is again seen. IMPRESSION: 1. Slight improvement to a the right pleural effusion which is now moderate. There is associated compressive atelectasis. 2. Patchy left basilar atelectasis with a small left pleural effusion. RPTAT:AAJJ Physician Carter Date Time Electronically viewed and signed by Richard Suresh Physician on 09/23/2017 19: 09 MC/ CC: JUAN LOPEZ MD PROCEDURE: US Lower extremity Venous. CLINICAL INDICATION: Lower extremity pain and swelling TECHNIQUE: Multiple sonographic images of the right lower extremity deep venous system was obtained utilizing grayscale, color-flow, compressive sonography and doppler imaging with augmentation. The images were reviewed on a PACS workstation. COMPARISON: None. FINDINGS: There is normal compressibility and flow within the right common femoral, superficial femoral and popliteal veins. Antegrade flow seen in the posterior tibial and peroneal veins. IMPRESSION: No sonographic evidence for deep venous thrombosis. RPTAT: AA .Mitchell Welch MD, Date Time Electronically viewed and signed by .Mitchell Welch MD, on 09/23/2017 21:23 .P/ CC: JUAN LOPEZ MD Labs Result Diagram: 09/23/17192709/23/171927 Medications Medications Current Medications Ondansetron HCl (Zofran Inj) 4 mg Q6H PRN IV NAUSEA AND/OR VOMITING; Start at 23:00 Acetaminophen (Tylenol Tab) 650 mg Q6H PRN PO PAIN LEVEL 1-3 OR FEVER; Start 09/23/17 at 23:00 Docusate Sodium (Colace) 100 mg Q12H PRN PO CONSTIPATION; Start 09/23/17 at 23 :00 Bisacodyl (Dulcolax) 5 mg DAILY PRN PO CONSTIPATION; Start 09/23/17 at 23:00 Pantoprazole (Protonix Iv) 40 mg DAILY@06 IV ; Start 09/24/17 at 06:00 Allopurinol (Zyloprim) 300 mg DAILY PO ; Start 09/24/17 at 09:00 Amiodarone HCl (Cordarone) 200 mg DAILY PO ; Start 09/24/17 at 09:00 Apixaban (Eliquis) 2.5 mg BID PO ; Start 09/24/17 at 09:00 Atorvastatin Calcium (Lipitor) 40 mg QHS PO ; Start 09/24/17 at 21:00 Carvedilol (Coreg) 3.125 mg BID PO ; Start 09/24/17 at 09:00 JULIO SAVAGE Sep 24, 2017 06:06
[2017-09-24] MEDS: BUMETANIDE 1 MG INJ IV SCH ×2 (06:44→19:15)
[2017-09-24] MEDS: PANTOPRAZOLE 40 MG INJ IV SCH (06:44)
[2017-09-24] MEDS: AMIODARONE 200 MG TAB PO SCH (09:00)
[2017-09-24] MEDS: APIXABAN 5 MG TABLET PO SCH ×2 (09:22→22:16)
[2017-09-24] MEDS: ALLOPURINOL 300 MG TAB PO SCH (09:22)
[2017-09-24] MEDS ORDERED: POTASSIUM CHLORIDE (SR) 20 MEQ TAB PO STA (10:17)
[2017-09-24] MEDS ORDERED: LIDOCAINE 1% (MPF) 5 ML VIAL ONE (11:21)
[2017-09-24] MEDS ORDERED: HYDROCODONE/APAP (5/325) TAB PO PRN (12:00)
--- NOTE | 2017-09-24 12:48 | RADRPT ---
PROCEDURE: XR Chest. CLINICAL INDICATION: Post Right Thoracentesis TECHNIQUE: PA and Lateral views of the chest were obtained. COMPARISON: Chest radiograph dated September 23, 2017.. FINDINGS: Biventricular AICD device overlying the left chest wall. There is stable cardiomegaly. Aortic calcifications are present. There is a small right pleural effusion with adjacent subsegmental atelectasis, grossly unchanged. S table trace left pleural effusion. No focal consolidations or pneumothorax. The osseous structures are grossly unremarkable. IMPRESSION: 1. Small right pleural effusion with adjacent subsegmental atelectasis, grossly unchanged. 2. Trace left pleural effusion. RPTAT:AAJJ Physician Mamadou Date Time Electronically viewed and signed by Physician Mamadou on 09/24/2017 12:48 QL/
--- NOTE | 2017-09-24 13:28 | RADRPT ---
PROCEDURE: US guided right thoracentesis. CLINICAL INDICATION: Shortness of breath. Right pleural effusion. TECHNIQUE: Prior to the procedure, informed consent was obtained. The risks, benefits, and alternatives were e xplained to the patient or the patient's family, including but not limited to bleeding, infection, p ain, visceral or vascular damage, shock, pneumothorax, chest tube placement, air embolism, and . The patient or the patient's family understood the risks and the alternatives and wished to proce ed with the study. Informed written consent was obtained. A procedural pause was performed. The patient's name, date of , and procedure to be performed were verified. Ultrasound of the right hemithorax was performed in the axial and sagittal planes. A right pleural e ffusion is noted. Utilizing ultrasound guidance, optimal location for entry to the pleural cavity wa s ascertained. The overlying skin was prepped and draped in the usual sterile fashion. Approximate ly 10 ml of 1% Xylocaine was injected locally for pain control. Using ultrasound guidance, a 5-Fren Yueh catheter was introduced into the right pleural space without difficulty. Fluid was aspirated . COMPARISON: None. FINDINGS: Initial ultrasound demonstrates fluid in the right pleural space. Approximately 0.450liters of sero us fluid was aspirated and discarded. IMPRESSION: 1. Satisfactory ultrasound-guided right thoracentesis. RPTAT: QQ .Adrian Sosa MD, Date Time Electronically viewed and signed by .Adrian Sosa MD, on 09/24/2017 13:27 .R/
--- NOTE | 2017-09-24 16:59 | CONS ---
Date/Time of Note Date/Time of Note DATE: 09/24/17 TIME: 16:51 Assessment/Plan Assessment/Plan Chief Complaint/Hosp Course 1. CHF: acute on chronic due to systolic dysfunction 2. ? bronchitis/ pneumonia 3. pleural effusion s./p thoracentesis 4. renal failure: acute on chronic 5. HTN 6. CAD 7./ HX PCI 8./ Severe anemia 9. dyslipidemia 10. P afib: currently in NSR Recommendations: S/P Thoracentesis I will start levoflox for now to be adjusted by IM/ Pulm ( DR Anton was asked to evaluate as well) diuresis as tolerated. cont coreg anticoagulation is on hold since pt just had thoracentesis. will check OB guiace stool Thank you for his referral. I will continue to follow along with you. COLIN BERGERON MD [facility] Problems: Consultation Date/Type/Reason Admit Date/Time Date of Consultation: Sep 24, 2017 Type of Consultation: CARDIOLOGY Reason for Consultation CHF Referring Provider: JULIO SAVAGE of Present Illness CC: SOB. productive cough. HPI: Dear Dr Savage. Thank you for this referral. This is a very pleasant 66-year-old gentleman with multiple complicated medical history who was admitted through the emergency room with complaint complains of shortness of breath and cough. Patient is very well- known to me because of his severe cardiomyopathy. He denies any chest pain or pressure to me. He does have shortness of breath which has been getting worse lately. He also has had significant cough with productive with green sputum over the past few days. He was noted to have increasing pleural effusion and underwent thoracentesis already today. His shortness of breath has improved now but he still complains of cough. he also has LE edema. PAST MEDICAL HISTORY: 1. History of ischemic cardiomyopathy, ejection fraction has been less than 35 percent, status post BIVICD placement by me 2. history of congestive heart failure, 3. history of severe anemia, 4. coronary artery disease, status post PCI, 5. paroxsymal atrial fibrillation, s/p DC cardioversion previously. 6. history of liver cirrhosis, possible gastric cancer in the past, according to the patient it is stable. 7. History of renal insufficiency ( being followed up by Dr Savage ). 8. hypertension. PAST SURGICAL HISTORY: Status post PCI in the past, history of cardioversion, status post BIV ICD placement by myself, including February of this year. ALLERGIES: NO REPORTED DRUG ALLERGIES. MEDICATION: reviewed as per medication reconciliation SOCIAL HISTORY: The patient does not smoke or drink at this point. Has smoked and drank in the past, however, stopped for awhile now. FAMILY HISTORY: No reported coronary artery. ROS: as above only. he denies all others Past Surgical History Past Surgical Hx: endoscopy Social History Alcohol Use: sober Smoking Status: Never smoker Drug Use: none Exam/Review of Systems Vital Signs Vitals Vital Signs Date Time Temp Pulse Resp B/P Pulse Ox O2 Delivery O2 Flow Rate FiO2 09/24/17 14:00 72 120/65 09/24/17 12:00 98.0 09/24/17 11:37 20 Nasal Cannula 2.0 09/24/17 09:00 99 Intake and Output 09/23/17 09/23/17 09/24/17 15:00 23:00 07:00 Output Total 450 ml Balance -450 ml Exam General: no acute distress HEENT: NC/AT. pupils are equal. round. NECK: + JVD. no stridor. CV: RRR. systolic murmur; no gallop or rubs. PULM: no wheezing . + basukar rhonchi. GI: SOFT, NT, ND, no rebound or guarding Extremity: + B/L LE edema. no clubbing. neuro: awake and alert, OX3. Psych: calm and pleasant rectal: deferred : normal male. ECG Paced. Results Result Diagram: 09/24/17 0534 09/24/17 0534 Results 24 hrs Laboratory Tests Test 09/23/17 19:28 09/24/17 05:34 09/24/17 11:15 09/24/17 14:30 White Blood Count 6.4 5.4 Red Blood Count 2.79 L 2.75 L Hemoglobin 9.0 L 8.8 L Hematocrit 27.6 L 27.2 L Mean Corpuscular Volume 98.9 98.9 Mean Corpuscular Hemoglobin 32.3 32.0 Mean Corpuscular Hemoglobin Concent 32.6 32.4 Red Cell Distribution Width 14.6 H 14.9 H Platelet Count 193 196 Mean Platelet Volume 11.0 H 11.5 H Neutrophils % 66.0 59.5 Lymphocytes % 18.2 25.0 Monocytes % 10.2 10.3 Eosinophils % 4.2 3.9 Basophils % 0.8 0.7 Nucleated Red Blood Cells % 0.0 0.0 Neutrophils # 4.2 3.2 Lymphocytes # 1.2 1.4 Monocytes # 0.7 0.6 Eosinophils # 0.3 0.2 Basophils # 0.1 0.0 Nucleated Red Blood Cells # 0.0 0.0 Prothrombin Time 16.9 H 16.8 H Prothrombin Time Ratio 1.3 1.3 INR International Normalized Ratio 1.37 1.36 Sodium Level 140 143 Potassium Level 3.6 3.3 L Chloride Level 101 105 Carbon Dioxide Level 28 28 Anion Gap 15 13 Blood Urea Nitrogen 83 H 78 H Creatinine 2.48 H 2.13 H Glucose Level 137 97 # Calcium Level 8.2 L 8.2 L Total Bilirubin 0.2 0.3 Direct Bilirubin 0.00 0.00 Indirect Bilirubin 0.2 0.3 Aspartate Amino Transf (AST/SGOT) 30 30 Alanine Aminotransferase (ALT/SGPT) 32 28 Alkaline Phosphatase 299 H 267 H Troponin I < 0.012 B-Type Natriuretic Peptide 90849 H Total Protein 7.1 6.6 Albumin 3.6 3.3 Globulin 3.50 H 3.30 H Albumin/Globulin Ratio 1.02 1.00 Activated Partial Thromboplast Time 43.6 H Hemoglobin A1c 6.2 H Triglycerides Level 91 Cholesterol Level 94 L LDL Cholesterol, Calculated 60 HDL Cholesterol 16 L Cholesterol/HDL Ratio 5.8 Thyroid Stimulating Hormone (TSH) 2.500 Body Fluid Type THORACENTESIS FLUID Body Fluid Volume 500.0 Body Fluid Color YELLOW Body Fluid Appearance SLIGHTLY HAZY Body Fluid WBC 77 Body Fluid RBC (Auto) 2000 Body Fluid Polynuclear WBCs (%) 5.2 Body Fluid Mononuclear Cells % Auto 94.8 Body Fluid Glucose 96 Body Fluid Total Protein 2.9 Body Fluid Lactate Dehydrogenase 210 Urine Color YELLOW Urine Clarity CLEAR Urine pH 5.0 Urine Specific [place] 1.011 Urine Ketones NEGATIVE Urine Nitrite NEGATIVE Urine Bilirubin NEGATIVE Urine Urobilinogen 2+ H Urine Leukocyte Esterase NEGATIVE Urine Hemoglobin NEGATIVE Urine Glucose NEGATIVE Urine Total Protein NEGATIVE Medications Medications Current Medications Ondansetron HCl (Zofran Inj) 4 mg Q6H PRN IV NAUSEA AND/OR VOMITING; Start at 23:00 Acetaminophen (Tylenol Tab) 650 mg Q6H PRN PO PAIN LEVEL 1-3 OR FEVER Last administered on 09/24/17 12:38; Admin Dose 650 MG; Start 09/23/17 at 23:00 Docusate Sodium (Colace) 100 mg Q12H PRN PO CONSTIPATION; Start 09/23/17 at 23 :00 Bisacodyl (Dulcolax) 5 mg DAILY PRN PO CONSTIPATION; Start 09/23/17 at 23:00 Pantoprazole (Protonix Iv) 40 mg DAILY@06 IV Last administered on 09/24/17 06 :44; Admin Dose 40 MG; Start 09/24/17 at 06:00 Allopurinol (Zyloprim) 300 mg DAILY PO Last administered on 09/24/17 09:22; Admin Dose 300 MG; Start 09/24/17 at 09:00 Amiodarone HCl (Cordarone) 200 mg DAILY PO ; Start 09/24/17 at 09:00 Apixaban (Eliquis) 2.5 mg BID PO Last administered on 09/24/17 09:22; Admin Dose 2.5 MG; Start 09/24/17 at 09:00 Atorvastatin Calcium (Lipitor) 40 mg QHS PO ; Start 09/24/17 at 21:00 Carvedilol (Coreg) 3.125 mg BID PO ; Start 09/24/17 at 09:00 Influenza Virus Vaccine (Fluzone) 0.5 ml ONCE ONCE IM* ; Start 09/25/17 at 09:00 ; Stop 09/25/17 at 09:01 Acetaminophen/ Hydrocodone Bitart 1 tab 1 tab Q4H PRN PO pain; Start 09/24/17 at 12:00 Levofloxacin/ Dextrose (Levaquin 500mg/ D5W 100 ml (Pmx)) 100 ml @ 100 mls/hr Q24H IVPB ; Start 09/24/17 at 17:00; Status COLIN BOUCHER MD Sep 24, 2017 16:59
[2017-09-24] MEDS: LEVOFLOXACIN 500MG/D5W (PMX) 100 ML IVPB SCH (17:24)
[2017-09-24] MEDS: ATORVASTATIN 40 MG TAB PO SCH (22:16)
[2017-09-25] VITALS (11 sets, daily range): BP systolic 99–114; BP diastolic 58–68; PULSE 60–77; RESP 16–17
--- NOTE | 2017-09-25 01:41 | CONS ---
DATE OF ADMISSION: 09/23/2017 DATE OF CONSULTATION: NEPHROLOGY CONSULTATION REASON FOR CONSULTATION: Acute kidney injury. PHYSICIAN REQUESTING CONSULTATION: Dr. Savage HISTORY OF PRESENT ILLNESS: This is a 66-year-old male with a past medical history of chronic kidne y disease stage IIIB/IV, with a baseline creatinine around 2 to 2.2 mg/dL, history of cardiorenal sy ndrome, history of diabetes, history of cardiomyopathy, history of AFib, dyslipidemia, previous hist ory of colon cancer, gastric cancer, who presents to [facility] for worsening coug h, shortness of breath over the last several days. The patient was previously seen by myself and my office where his diuretic regimen was adjusted as patient was retaining fluid. The patient now pre sents to [facility] with cough. He denied any fevers, chills, any nausea, vomitin g. Denied any hemoptysis, hematemesis, hematochezia. PAST MEDICAL HISTORY: As stated above, history of COPD, history of chronic kidney disease stage IV, history of CHF, AFib, hypertension, history of diabetes. PAST SURGICAL HISTORY: Status post pacemaker placement, status post colon resection. FAMILY HISTORY: Noncontributory. SOCIAL HISTORY: Does not drink, smoke or do drugs. MEDICATIONS: The patient's medications have been reviewed and reconciled. REVIEW OF SYSTEMS: A 14-point review of systems was conducted. Pertinent positives stated in HPI, otherwise negative. PHYSICAL EXAMINATION: VITALS: Blood pressure 109/56, respirations 18, pulse 60, temperature 98.0. HEENT: Head is normocephalic. NECK: Supple. HEART: Regular rate. LUNGS: Show diminished breath sounds at the base. ABDOMEN: Soft, nontender to palpation without rebound or guarding. EXTREMITIES: Negative for clubbing, cyanosis. Positive edema. DERMATOLOGIC: No rashes. MUSCULOSKELETAL: No joint effusions. NEUROLOGIC: No focal deficits. LABORATORY DATA: Shows sodium 143, potassium 3.3, BUN 78, creatinine 2.13. White count is 5.4, hem oglobin 8.8, hematocrit is 27.2, platelet count is 196. ASSESSMENT AND PLAN: This is a 66-year-old male who presents with: 1. Nonoliguric acute kidney injury on top of chronic kidney disease stage IV with a baseline creati nine between 2 to 2.2 mg/dL. Etiology of acute kidney injury secondary to cardiorenal syndrome. Th e patient's renal function has improved after given diuretic therapy. Plan at this point is to cont inue current treatment plan, continue diuretic therapy, continue to monitor renal function closely. We will check UA with microanalysis. Check urine electrolytes. We will otherwise continue support kb care, renally dose all meds, avoid nephrotoxins. 2. Bdtge-ho-rrbvvcg congestive heart failure exacerbation. The patient is volume overloaded. Cont inue current diuretic regimen. 3. Anemia. Monitor H and H levels. 4. Mineral bone disorder. Monitor calcium and phosphorus levels. 5. Acute bronchitis, questionable pneumonia. Continue current antibiotic regimen. Follow up with pulmonary. 6. Hypertension. Continue current blood pressure regimen. 7. Coronary artery disease status post percutaneous coronary intervention. Continue current medica l management. 8. Dyslipidemia. Continue statin therapy. 9. History of paroxysmal atrial fibrillation, currently in sinus rhythm. Thank you, Dr. Savage, for this interesting consult. It will be a pleasure to follow patient with you throughout the hospital course. Dictated By: ANIL CONNOR DO NR/NTS Conf#: [id number] DID#: [id number] CC: JULIO SAVAGE MD;*EndCC*
[2017-09-25] MEDS ORDERED: ALBUTEROL/IPRATROPIUM (NEB) 3 ML AMP HHN ONE (03:23)
[2017-09-25] MEDS ORDERED: GUAIFENESIN 20 MG/ML 5ML CUP PO ONE (03:30)
[2017-09-25] MEDS: BUMETANIDE 1 MG INJ IV SCH ×2 (05:38→17:41)
[2017-09-25] MEDS: PANTOPRAZOLE 40 MG INJ IV SCH (05:38)
--- NOTE | 2017-09-25 07:31 | RADRPT ---
Echocardiogram Report Patient Name: NASIM HEAD Gender: Male Date: 1950 Study Date: 24-Sep-2017 Clerical Car Checker: Myla Alston [facility] Location: 3304 Ref. Physician: JULIO SAVAGE Quality: Good Procedures: Transthoracic echocardiogram with complete 2D, M-Mode, and doppler examination. Indications: Chest Pain. 2D/M Mode Doppler Measurement Value Normal Ranges Measurement Value Normal Ranges LVIDd 2D 3.8 3.5 - 5.6 cm AV Peak Jairo 1.6 m/sec LVIDs 2D 2.3 2.1 - 4.1 cm AV Peak PG 10.0 mmHg FS 2D 39.5 % LVOT Peak Jairo 1.2 m/sec LVPWd 2D 0.9 0.6 - 1.1 cm LVOT Peak PG 6.0 mmHg IVSd 2D 0.9 0.6 - 1.1 cm MV E Peak Jairo 1.1 m/sec IVS/LVPW 2D 1.0 MV Decel Time 218 msec AoR Diam 2D 2.8 2.0 - 3.7 cm TR Peak Jairo 3.3 m/sec LA/Ao 2D 1 0 - 1 TR Peak PG 45.0 mmHg EDV 2D 52.7 cm3 RVSP 55.0 mmHg ESV 2D 11.7 cm3 LA Dimen 2D 4.0 2.3 - 4.0 cm Findings Left Ventricle: Normal left ventricular cavity size. Normal left ventricular wall thickness. Mild left ventricular systolic dysfunction. Ejection fraction is visually estimated at 45 %. Right Ventricle: Normal right ventricular size. Normal right ventricular systolic function. Pacemaker right heart. Left Atrium: Upper limit of normal left atrial size. Right Atrium: There is mild enlargement of right atrium. Mitral Valve: Mild mitral leaflet calcification. Mild mitral annular calcification. Mild mitral valve regurgitation. Aortic Valve: No significant aortic stenosis or insufficiency. Aortic cusps appear mildly calcified. Tricuspid Valve: Normal appearance of the tricuspid valve. Estimated peak PA systolic pressure 55 mmHg. There is mild to moderate tricuspid regurgitation. Pulmonic Valve: Normal pulmonic valve appearance. Pericardium: Small pericardial effusion. Pleural effusion seen. Aorta: Normal aortic root. IVC: Dilated IVC without respiratory collapse consistent with elevated right atrial pressure. Conclusions 1.Normal left ventricular cavity size. Normal left ventricular wall thickness. Mild left ventricular systolic dysfunction. Ejection fraction is visually estimated at 45 %. 2.Upper limit of normal left atrial size. 3.Mild mitral leaflet calcification. Mild mitral annular calcification. Mild mitral valve regurgitation. 4.No significant aortic stenosis or insufficiency. Aortic cusps appear mildly calcified. 5.Normal appearance of the tricuspid valve. Estimated peak PA systolic pressure 55 mmHg. There is mild to moderate tricuspid regurgitation. 6.Dilated IVC without respiratory collapse consistent with elevated right atrial pressure. 7.Small pericardial effusion. Pleural effusion seen. Electronically Signed By: Alfa Macias 25-Sep-2017 07:31:36 -0700 Patient Name: NASIM HEAD Study Date: 24-Sep-2017 [id number]
--- NOTE | 2017-09-25 07:31 | RADRPT ---
Echocardiogram Report Patient Name: NASIM HEAD Gender: Male Date: 1950 Study Date: 24-Sep-2017 Jet Man: Myla Alston [facility] Location: 3304 Ref. Physician: JULIO SAVAGE Quality: Good Procedures: Transthoracic echocardiogram with complete 2D, M-Mode, and doppler examination. Indications: Chest Pain. 2D/M Mode Doppler Measurement Value Normal Ranges Measurement Value Normal Ranges LVIDd 2D 3.8 3.5 - 5.6 cm AV Peak Jairo 1.6 m/sec LVIDs 2D 2.3 2.1 - 4.1 cm AV Peak PG 10.0 mmHg FS 2D 39.5 % LVOT Peak Jairo 1.2 m/sec LVPWd 2D 0.9 0.6 - 1.1 cm LVOT Peak PG 6.0 mmHg IVSd 2D 0.9 0.6 - 1.1 cm MV E Peak Jairo 1.1 m/sec IVS/LVPW 2D 1.0 MV Decel Time 218 msec AoR Diam 2D 2.8 2.0 - 3.7 cm TR Peak Jairo 3.3 m/sec LA/Ao 2D 1 0 - 1 TR Peak PG 45.0 mmHg EDV 2D 52.7 cm3 RVSP 55.0 mmHg ESV 2D 11.7 cm3 LA Dimen 2D 4.0 2.3 - 4.0 cm Findings Left Ventricle: Normal left ventricular cavity size. Normal left ventricular wall thickness. Mild left ventricular systolic dysfunction. Ejection fraction is visually estimated at 45 %. Right Ventricle: Normal right ventricular size. Normal right ventricular systolic function. Pacemaker right heart. Left Atrium: Upper limit of normal left atrial size. Right Atrium: There is mild enlargement of right atrium. Mitral Valve: Mild mitral leaflet calcification. Mild mitral annular calcification. Mild mitral valve regurgitation. Aortic Valve: No significant aortic stenosis or insufficiency. Aortic cusps appear mildly calcified. Tricuspid Valve: Normal appearance of the tricuspid valve. Estimated peak PA systolic pressure 55 mmHg. There is mild to moderate tricuspid regurgitation. Pulmonic Valve: Normal pulmonic valve appearance. Pericardium: Small pericardial effusion. Pleural effusion seen. Aorta: Normal aortic root. IVC: Dilated IVC without respiratory collapse consistent with elevated right atrial pressure. Conclusions 1.Normal left ventricular cavity size. Normal left ventricular wall thickness. Mild left ventricular systolic dysfunction. Ejection fraction is visually estimated at 45 %. 2.Upper limit of normal left atrial size. 3.Mild mitral leaflet calcification. Mild mitral annular calcification. Mild mitral valve regurgitation. 4.No significant aortic stenosis or insufficiency. Aortic cusps appear mildly calcified. 5.Normal appearance of the tricuspid valve. Estimated peak PA systolic pressure 55 mmHg. There is mild to moderate tricuspid regurgitation. 6.Dilated IVC without respiratory collapse consistent with elevated right atrial pressure. 7.Small pericardial effusion. Pleural effusion seen. Electronically Signed By: Alfa Macias 25-Sep-2017 07:31:36 -0700 Patient Name: NASIM HEAD Study Date: 24-Sep-2017 [id number]
--- NOTE | 2017-09-25 07:31 | RADRPT ---
Echocardiogram Report Patient Name: NASIM HEAD Gender: Male Date: 1950 Study Date: 24-Sep-2017 Manager Life: Myla Alston [facility] Location: 3304 Ref. Physician: JULIO SAVAGE Quality: Good Procedures: Transthoracic echocardiogram with complete 2D, M-Mode, and doppler examination. Indications: Chest Pain. 2D/M Mode Doppler Measurement Value Normal Ranges Measurement Value Normal Ranges LVIDd 2D 3.8 3.5 - 5.6 cm AV Peak Jairo 1.6 m/sec LVIDs 2D 2.3 2.1 - 4.1 cm AV Peak PG 10.0 mmHg FS 2D 39.5 % LVOT Peak Jairo 1.2 m/sec LVPWd 2D 0.9 0.6 - 1.1 cm LVOT Peak PG 6.0 mmHg IVSd 2D 0.9 0.6 - 1.1 cm MV E Peak Jairo 1.1 m/sec IVS/LVPW 2D 1.0 MV Decel Time 218 msec AoR Diam 2D 2.8 2.0 - 3.7 cm TR Peak Jairo 3.3 m/sec LA/Ao 2D 1 0 - 1 TR Peak PG 45.0 mmHg EDV 2D 52.7 cm3 RVSP 55.0 mmHg ESV 2D 11.7 cm3 LA Dimen 2D 4.0 2.3 - 4.0 cm Findings Left Ventricle: Normal left ventricular cavity size. Normal left ventricular wall thickness. Mild left ventricular systolic dysfunction. Ejection fraction is visually estimated at 45 %. Right Ventricle: Normal right ventricular size. Normal right ventricular systolic function. Pacemaker right heart. Left Atrium: Upper limit of normal left atrial size. Right Atrium: There is mild enlargement of right atrium. Mitral Valve: Mild mitral leaflet calcification. Mild mitral annular calcification. Mild mitral valve regurgitation. Aortic Valve: No significant aortic stenosis or insufficiency. Aortic cusps appear mildly calcified. Tricuspid Valve: Normal appearance of the tricuspid valve. Estimated peak PA systolic pressure 55 mmHg. There is mild to moderate tricuspid regurgitation. Pulmonic Valve: Normal pulmonic valve appearance. Pericardium: Small pericardial effusion. Pleural effusion seen. Aorta: Normal aortic root. IVC: Dilated IVC without respiratory collapse consistent with elevated right atrial pressure. Conclusions 1.Normal left ventricular cavity size. Normal left ventricular wall thickness. Mild left ventricular systolic dysfunction. Ejection fraction is visually estimated at 45 %. 2.Upper limit of normal left atrial size. 3.Mild mitral leaflet calcification. Mild mitral annular calcification. Mild mitral valve regurgitation. 4.No significant aortic stenosis or insufficiency. Aortic cusps appear mildly calcified. 5.Normal appearance of the tricuspid valve. Estimated peak PA systolic pressure 55 mmHg. There is mild to moderate tricuspid regurgitation. 6.Dilated IVC without respiratory collapse consistent with elevated right atrial pressure. 7.Small pericardial effusion. Pleural effusion seen. Electronically Signed By: Alfa Macias 25-Sep-2017 07:31:36 -0700 Patient Name: NASIM HEAD Study Date: 24-Sep-2017 [id number]
[2017-09-25] MEDS: AMIODARONE 200 MG TAB PO SCH (08:26)
[2017-09-25] MEDS: APIXABAN 5 MG TABLET PO SCH ×2 (08:26→21:04)
[2017-09-25] MEDS: ALLOPURINOL 300 MG TAB PO SCH (08:26)
[2017-09-25] MEDS ORDERED: INFLUENZA VIRUS VACCINE 0.5 ML (DISPENSING) IM* ONE (09:00)
--- NOTE | 2017-09-25 09:38 | CONS ---
Date/Time of Note Date/Time of Note DATE: 09/25/17 TIME: 09:37 Consult Date/Type/Reason Admit Date/Time Sep 23, 2017 at 21:14 Initial Consult Date 09/24/17 Type of Consultation: CARDIOLOGY Ordering Provider: JULIO SAVAGE Subjective Cardiology follow up note: S: D/w staff and rhythm was reviewed. pt remains in V paced no chest pain or pressure he still c/o cough and phlegm. no bleeding no palpitations. O: General: no acute distress HEENT: NC/AT. pupils are equal. round. NECK: + JVD. no stridor. CV: RRR. systolic murmur; no gallop or rubs. PULM: no wheezing . + basukar rhonchi. GI: SOFT, NT, ND, no rebound or guarding Extremity: + B/L LE edema. no clubbing. neuro: awake and alert, OX3. Psych: calm and pleasant rectal: deferred : normal male. ECG Paced. Objective Vital Signs Date Time Temp Pulse Resp B/P Pulse Ox O2 Delivery O2 Flow Rate FiO2 09/25/17 07:58 99.1 68 17 112/64 98 09/25/17 03:58 21 09/24/17 12:00 Room Air 09/24/17 11:37 2.0 Intake and Output 09/24/17 09/24/17 09/25/17 15:00 23:00 07:00 Intake Total 600 ml 480 ml Output Total 850 ml 800 ml 1200 ml Balance -850 ml -200 ml -720 ml Results/Medications Result Diagram: 09/25/17 0654 09/25/17 0654 Results 24 hrs Laboratory Tests Test 09/24/17 11:15 09/24/17 14:30 09/24/17 14:48 09/25/17 06:54 Body Fluid Type THORACENTESIS FLUID Body Fluid Volume 500.0 Body Fluid Color YELLOW Body Fluid Appearance SLIGHTLY HAZY Body Fluid WBC 77 Body Fluid RBC (Auto) 2000 Body Fluid Polynuclear WBCs (%) 5.2 Body Fluid Mononuclear Cells % Auto 94.8 Body Fluid Glucose 96 Body Fluid Total Protein 2.9 Body Fluid Lactate Dehydrogenase 210 Urine Color YELLOW Urine Clarity CLEAR Urine pH 5.0 Urine Specific [place] 1.011 Urine Ketones NEGATIVE Urine Nitrite NEGATIVE Urine Bilirubin NEGATIVE Urine Urobilinogen 2+ H Urine Leukocyte Esterase NEGATIVE Urine Hemoglobin NEGATIVE Urine Glucose NEGATIVE Urine Total Protein NEGATIVE 11.0 Urine Random Creatinine 65.58 Urine Random Sodium 20 L White Blood Count 7.0 # Red Blood Count 2.80 L Hemoglobin 8.6 L Hematocrit 27.1 L Mean Corpuscular Volume 96.8 Mean Corpuscular Hemoglobin 30.7 Mean Corpuscular Hemoglobin Concent 31.7 L Red Cell Distribution Width 14.7 H Platelet Count 206 Mean Platelet Volume 11.2 H Neutrophils % 65.9 Lymphocytes % 19.8 Monocytes % 10.3 Eosinophils % 2.7 Basophils % 0.7 Nucleated Red Blood Cells % 0.0 Neutrophils # 4.6 Lymphocytes # 1.4 Monocytes # 0.7 Eosinophils # 0.2 Basophils # 0.1 Nucleated Red Blood Cells # 0.0 Prothrombin Time 18.3 H Prothrombin Time Ratio 1.4 INR International Normalized Ratio 1.51 Activated Partial Thromboplast Time 46.8 H Sodium Level 140 Potassium Level 3.8 Chloride Level 104 Carbon Dioxide Level 25 Anion Gap 15 Blood Urea Nitrogen 64 H Creatinine 1.93 H Glucose Level 93 Calcium Level 8.1 L Phosphorus Level 3.3 Magnesium Level 2.0 Total Bilirubin 0.4 Direct Bilirubin 0.00 Indirect Bilirubin 0.4 Aspartate Amino Transf (AST/SGOT) 33 Alanine Aminotransferase (ALT/SGPT) 31 Alkaline Phosphatase 257 H B-Type Natriuretic Peptide 44507 H Total Protein 6.7 Albumin 3.3 Globulin 3.40 H Albumin/Globulin Ratio 0.97 Triglycerides Level 86 Cholesterol Level 92 L LDL Cholesterol, Calculated 58 HDL Cholesterol 17 L Cholesterol/HDL Ratio 5.4 Thyroid Stimulating Hormone (TSH) 3.160 Medications Current Medications Ondansetron HCl (Zofran Inj) 4 mg Q6H PRN IV NAUSEA AND/OR VOMITING; Start at 23:00 Acetaminophen (Tylenol Tab) 650 mg Q6H PRN PO PAIN LEVEL 1-3 OR FEVER Last administered on 09/24/17 12:38; Admin Dose 650 MG; Start 09/23/17 at 23:00 Docusate Sodium (Colace) 100 mg Q12H PRN PO CONSTIPATION; Start 09/23/17 at 23 :00 Bisacodyl (Dulcolax) 5 mg DAILY PRN PO CONSTIPATION; Start 09/23/17 at 23:00 Pantoprazole (Protonix Iv) 40 mg DAILY@06 IV Last administered on 09/25/17 05: 38; Admin Dose 40 MG; Start 09/24/17 at 06:00 Allopurinol (Zyloprim) 300 mg DAILY PO Last administered on 09/25/17 08:26; Admin Dose 300 MG; Start 09/24/17 at 09:00 Amiodarone HCl (Cordarone) 200 mg DAILY PO Last administered on 09/25/17 08:26 ; Admin Dose 200 MG; Start 09/24/17 at 09:00 Apixaban (Eliquis) 2.5 mg BID PO Last administered on 09/25/17 08:26; Admin Dose 2.5 MG; Start 09/24/17 at 09:00 Atorvastatin Calcium (Lipitor) 40 mg QHS PO Last administered on 09/24/17 22: 16; Admin Dose 40 MG; Start 09/24/17 at 21:00 Carvedilol (Coreg) 3.125 mg BID PO Last administered on 09/25/17 08:27; Admin Dose 3.125 MG; Start 09/24/17 at 09:00 Acetaminophen/ Hydrocodone Bitart 1 tab 1 tab Q4H PRN PO pain; Start 09/24/17 at 12:00 Levofloxacin/ Dextrose (Levaquin 500mg/ D5W 100 ml (Pmx)) 100 ml @ 100 mls/hr Q48H IVPB Last administered on 09/24/17 17:24; Admin Dose 100 MLS/HR; Start 09/24/17 at 17:00 Assessment/Plan Chief Complaint/Hosp Course 1. CHF: acute on chronic due to systolic dysfunction 2. ? bronchitis/ pneumonia 3. pleural effusion s./p thoracentesis 4. renal failure: acute on chronic 5. HTN 6. CAD 7./ HX PCI 8./ Severe anemia 9. dyslipidemia 10. P afib: currently in NSR Recommendations: S/P Thoracentesis I will cont levoflox for now to be adjusted by IM/ Pulm ( DR Anton was asked to evaluate as well) diuresis as tolerated. cont coreg anticoagulation is on hold since pt just had thoracentesis. will check OB guiace stool echo reviewed. EF now has improved post BIV.ICD to 45%. Thank you for his referral. I will continue to follow along with you. COLIN BERGERON MD [facility] Problems: COLIN BERGERON MD Sep 25, 2017 09:38
[2017-09-25] MEDS ORDERED: ALBUTEROL/IPRATROPIUM (NEB) 3 ML AMP HHN PRN (12:30)
[2017-09-25] MEDS ORDERED: GLUCOSE GEL 15 GRAM TUBE PO PRN ×2 (12:30)
[2017-09-25] MEDS ORDERED: DEXTROSE 50% 50 ML SYRINGE IV PRN ×2 (12:30)
[2017-09-25] MEDS ORDERED: GLUCOSE GEL 15 GRAM TUBE BUCCAL PRN (12:30)
[2017-09-25] MEDS ORDERED: GLUCAGON 1 MG INJ IM PRN (12:30)
[2017-09-25] MEDS ORDERED: GUAIFENESIN 20 MG/ML 5ML CUP PO PRN (12:30)
--- NOTE | 2017-09-25 12:42 | PN ---
Date/Time of Note Date/Time of Note DATE: 09/25/17 TIME: 12:40 Assessment/Plan VTE Prophylaxis VTE Prophylaxis Intervention: other (Factor Xa inhibitors) Lines/Catheters IV C[facility]ter Type (from [facility]): [place] [facility] Urinary Cath still in place: No Assessment/Plan Chief Complaint/Hosp Course 1. Acute on chronic systolic heart failure. Continue diuresis while carefully watching the patient's renal function. The patient being followed by cardiology and nephrology. 2. Possible underlying acute tracheobronchitis. Continue antibiotics. Start as needed inhaled bronchodilators. 3. Right pleural effusion. Status post right-sided thoracentesis on 2016 with drainage of 0.450 L of serous fluid. 4. Cardiomyopathy. Ejection fraction of 45%. Continue beta-blockers. Unable to use EMMIE inhibitors because of underlying kidney disease. 5. Paroxysmal atrial fibrillation. Currently sinus rhythm. On factor Xa inhibitors for stroke prophylaxis. 6. CAD. Status post PTCA in the past. Continue apixaban and statins. 7. Acute on chronic kidney disease. The patient being followed by nephrology. Use nephrotoxic drugs with caution. 8. Dyslipidemia. Continue statins. 9. Essential hypertension. Continue antihypertensives. 10. Type 2 diabetes mellitus. Well controlled. Hemoglobin A1c 6.2. Continue sliding scale insulin. 11. Normocytic, normochromic anemia. Etiology unclear. Check stool for OB. Obtain iron panel. 12. Fluids, electrolytes, and nutrition. Renal diet. 13. DVT prophylaxis. On Eliquis. 14. Plan. Continue current management. Await further recommendations from consultants. Case discussed with Dr. Jenkins. Problems: Subjective 24 Hr Interval Summary Free Text/Dictation Complains of a productive cough. Exam/Review of Systems Vital Signs Vitals Vital Signs Date Time Temp Pulse Resp B/P Pulse Ox O2 Delivery O2 Flow Rate FiO2 09/25/17 11:34 97.7 65 17 99/58 98 09/25/17 03:58 21 09/24/17 12:00 Room Air 09/24/17 11:37 2.0 Intake and Output 09/24/17 09/24/17 09/25/17 15:00 23:00 07:00 Intake Total 600 ml 480 ml Output Total 850 ml 800 ml 1200 ml Balance -850 ml -200 ml -720 ml Exam General: This is a 66 year-old male lying in bed in no apparent distress. HEENT: Normocephalic, atraumatic. Eyes: Anicteric sclerae, conjunctivae clear. ENT: Nasal septum midline, oral mucosa moist. Neck supple, no JVD noticed. Respiratory: Bilaterally diminished breath sounds. No use of accessory muscles of respiration. Cardiovascular: S1, S2 heard. Regular rate and rhythm. Abdomen: Soft, nontender, and nondistended. Bowel sounds positive in all 4 quadrants. Genitourinary: Deferred. Extremities: No cyanosis, no clubbing, no edema. Peripheral pulses palpable. Neurologic: Cranial nerves II through XII grossly intact. The patient is awake, alert, and oriented. Skin: Normal skin turgor. No skin rashes. Results Result Diagram: 09/25/17 0654 09/25/17 0654 Results 24 hrs Laboratory Tests Test 09/24/17 14:30 09/24/17 14:48 09/25/17 06:54 Urine Color YELLOW Urine Clarity CLEAR Urine pH 5.0 Urine Specific [place] 1.011 Urine Ketones NEGATIVE Urine Nitrite NEGATIVE Urine Bilirubin NEGATIVE Urine Urobilinogen 2+ H Urine Leukocyte Esterase NEGATIVE Urine Hemoglobin NEGATIVE Urine Glucose NEGATIVE Urine Total Protein NEGATIVE 11.0 Urine Random Creatinine 65.58 Urine Random Sodium 20 L White Blood Count 7.0 # Red Blood Count 2.80 L Hemoglobin 8.6 L Hematocrit 27.1 L Mean Corpuscular Volume 96.8 Mean Corpuscular Hemoglobin 30.7 Mean Corpuscular Hemoglobin Concent 31.7 L Red Cell Distribution Width 14.7 H Platelet Count 206 Mean Platelet Volume 11.2 H Neutrophils % 65.9 Lymphocytes % 19.8 Monocytes % 10.3 Eosinophils % 2.7 Basophils % 0.7 Nucleated Red Blood Cells % 0.0 Neutrophils # 4.6 Lymphocytes # 1.4 Monocytes # 0.7 Eosinophils # 0.2 Basophils # 0.1 Nucleated Red Blood Cells # 0.0 Prothrombin Time 18.3 H Prothrombin Time Ratio 1.4 INR International Normalized Ratio 1.51 Activated Partial Thromboplast Time 46.8 H Sodium Level 140 Potassium Level 3.8 Chloride Level 104 Carbon Dioxide Level 25 Anion Gap 15 Blood Urea Nitrogen 64 H Creatinine 1.93 H Glucose Level 93 Calcium Level 8.1 L Phosphorus Level 3.3 Magnesium Level 2.0 Total Bilirubin 0.4 Direct Bilirubin 0.00 Indirect Bilirubin 0.4 Aspartate Amino Transf (AST/SGOT) 33 Alanine Aminotransferase (ALT/SGPT) 31 Alkaline Phosphatase 257 H B-Type Natriuretic Peptide 78428 H Total Protein 6.7 Albumin 3.3 Globulin 3.40 H Albumin/Globulin Ratio 0.97 Triglycerides Level 86 Cholesterol Level 92 L LDL Cholesterol, Calculated 58 HDL Cholesterol 17 L Cholesterol/HDL Ratio 5.4 Thyroid Stimulating Hormone (TSH) 3.160 Medications Medications Current Medications Ondansetron HCl (Zofran Inj) 4 mg Q6H PRN IV NAUSEA AND/OR VOMITING; Start at 23:00 Acetaminophen (Tylenol Tab) 650 mg Q6H PRN PO PAIN LEVEL 1-3 OR FEVER Last administered on 09/24/17 12:38; Admin Dose 650 MG; Start 09/23/17 at 23:00 Docusate Sodium (Colace) 100 mg Q12H PRN PO CONSTIPATION; Start 09/23/17 at 23 :00 Bisacodyl (Dulcolax) 5 mg DAILY PRN PO CONSTIPATION; Start 09/23/17 at 23:00 Pantoprazole (Protonix Iv) 40 mg DAILY@06 IV Last administered on 09/25/17 05: 38; Admin Dose 40 MG; Start 09/24/17 at 06:00 Allopurinol (Zyloprim) 300 mg DAILY PO Last administered on 09/25/17 08:26; Admin Dose 300 MG; Start 09/24/17 at 09:00 Amiodarone HCl (Cordarone) 200 mg DAILY PO Last administered on 09/25/17 08:26 ; Admin Dose 200 MG; Start 09/24/17 at 09:00 Apixaban (Eliquis) 2.5 mg BID PO Last administered on 09/25/17 08:26; Admin Dose 2.5 MG; Start 09/24/17 at 09:00 Atorvastatin Calcium (Lipitor) 40 mg QHS PO Last administered on 09/24/17 22: 16; Admin Dose 40 MG; Start 09/24/17 at 21:00 Carvedilol (Coreg) 3.125 mg BID PO Last administered on 09/25/17 08:27; Admin Dose 3.125 MG; Start 09/24/17 at 09:00 Acetaminophen/ Hydrocodone Bitart 1 tab 1 tab Q4H PRN PO pain; Start 09/24/17 at 12:00 Levofloxacin/ Dextrose (Levaquin 500mg/ D5W 100 ml (Pmx)) 100 ml @ 100 mls/hr Q48H IVPB Last administered on 09/24/17t 17:24; Admin Dose 100 MLS/HR; Start 09/24/17 at 17:00 Miscellaneous Information (* Miscellaneous Pharmacy Order) Discontinue current oral sulfonylur... ONCE ONCE XX ; Start 09/25/17 at 12:30; Stop 09/25/17 at 12: 31 Diagnostic Test (Pha) (Accu-Chek) 1 ea 02 XX ; Start 09/26/17 at 02:00 Miscellaneous Information (* Miscellaneous Pharmacy Order) HYPOGLYCEMIA PROTOCOL w... ONCE ONCE XX ; Start 09/25/17 at 12:30; Stop 09/25/17 at 12:31 Miscellaneous Information (* Miscellaneous Pharmacy Order) Discontinue all previ... ONCE ONCE XX ; Start 09/25/17 at 12:30; Stop 09/25/17 at 12:31 Diagnostic Test (Pha) (Accu-Chek) 1 ea 02 XX ; Start 09/26/17 at 02:00 Guaifenesin (Robitussin Liquid Cup) 100 mg Q4H PRN PO COUGH; Start 09/25/17 at 12:30 MISHA LANDRY CUSTOMER SERVICE REPRESENTATIVE TEACHER Sep 25, 2017 12:42
--- NOTE | 2017-09-25 12:52 | PN ---
DATE: 09/25/2017 SUBJECTIVE: The patient is stable, no acute events overnight. No fevers, chills, nausea or vomitin g. OBJECTIVE: VITAL SIGNS: Blood pressure is 112/64, pulse 68, respirations 17, temperature 99.1. HEENT: Head is normocephalic. NECK: Supple. HEART: Regular rate. LUNGS: Show diminished breath sounds at the base. ABDOMEN: Soft, nontender to palpation, no rebound or guarding. EXTREMITIES: Negative for clubbing, cyanosis. Trace edema. DERMATOLOGIC: No rashes. MUSCULOSKELETAL: No joint effusion. NEUROLOGIC: No change in exam. MEDICATIONS: The patient's medications have been reviewed. LABORATORY DATA: Shows white count is 7.0, hemoglobin 8.6, hematocrit 27.1, platelet count 206. So dium 140, BUN 64, creatinine 1.93. BNP 10,000. ASSESSMENT AND PLAN: 1. Nonoliguric acute kidney injury on top of chronic kidney disease stage IV with previous baseline creatinine around 2.0 mg/dL. Etiology of acute kidney injury is secondary to cardiorenal syndrome. Renal function has improved with diuretic therapy. Continue current treatment plan, supportive ca re, renal dose all medications. 2. Acute on chronic congestive heart failure exacerbation. Continue current medical management. F ollow up with cardiology. 3. Anemia. Monitor hemoglobin and hematocrit levels. 4. Mineral bone disorder. Monitor calcium and phosphorus levels. 5. Acute bronchitis. Continue Levaquin. 6. Hypertension. Continue current blood pressure regimen. 7. Coronary artery disease. Continue medical management. 8. Dyslipidemia. Continue statin therapy. 9. History of paroxysmal atrial fibrillation, currently in sinus rhythm. Dictated By: ANIL CONNOR DO NR/NTS Conf#: [id number] DID#: [id number] CC: JULIO SAVAGE MD;*EndCC*
[2017-09-25] MEDS ORDERED: LEVOFLOXACIN 500MG/D5W (PMX) 100 ML IVPB SCH (13:00)
[2017-09-25] MEDS: INSULIN ASPART [NOVOLOG] 3 ML PEN SC SCH ×3 (17:41→21:00)
[2017-09-25] MEDS: ATORVASTATIN 40 MG TAB PO SCH (21:04)
[2017-09-26] VITALS (9 sets, daily range): BP systolic 101–121; BP diastolic 58–69; PULSE 60–73; RESP 17–19
[2017-09-26] MEDS ORDERED: ACCU-CHEK XX SCH ×2 (02:00)
[2017-09-26] MEDS: BUMETANIDE 1 MG INJ IV SCH (06:10)
[2017-09-26] MEDS: PANTOPRAZOLE 40 MG INJ IV SCH (06:11)
[2017-09-26] MEDS: INSULIN ASPART [NOVOLOG] 3 ML PEN SC SCH ×6 (07:49→16:36)
--- NOTE | 2017-09-26 08:15 | CONS ---
Date/Time of Note Date/Time of Note DATE: 09/26/17 TIME: 08:13 Consult Date/Type/Reason Admit Date/Time Sep 23, 2017 at 21:14 Initial Consult Date 09/24/17 Type of Consultation: CARDIOLOGY Ordering Provider: JULIO SAVAGE Subjective Cardiology follow up note: S: D/w staff and rhythm was reviewed. pt remains in V paced no chest pain or pressure he has less c/o cough and phlegm. no bleeding no palpitations. O: General: no acute distress HEENT: NC/AT. pupils are equal. round. NECK: + JVD. no stridor. CV: RRR. systolic murmur; no gallop or rubs. PULM: no wheezing . + basukar rhonchi. GI: SOFT, NT, ND, no rebound or guarding Extremity: + B/L LE edema. no clubbing. neuro: awake and alert, OX3. Psych: calm and pleasant rectal: deferred : normal male. ECG Paced. Objective Vital Signs Date Time Temp Pulse Resp B/P Pulse Ox O2 Delivery O2 Flow Rate FiO2 09/26/17 07:40 98.0 63 18 109/60 97 09/26/17 01:22 21 09/24/17 12:00 Room Air 09/24/17 11:37 2.0 Intake and Output 09/25/17 09/25/17 09/26/17 15:00 23:00 07:00 Intake Total 1000 ml 260 ml Output Total 1100 ml 1300 ml Balance -100 ml -1040 ml Results/Medications Result Diagram: 09/26/17 0708 09/26/17 0708 Results 24 hrs Laboratory Tests Test 09/25/17 13:52 09/25/17 17:37 09/25/17 21:01 09/26/17 07:08 Iron Level 25 L Total Iron Binding Capacity 294 Percent Iron Saturation 9 L Ferritin 189.0 Bedside Glucose 102 79 White Blood Count 6.6 Red Blood Count 2.70 L Hemoglobin 8.5 L Hematocrit 26.3 L Mean Corpuscular Volume 97.4 Mean Corpuscular Hemoglobin 31.5 Mean Corpuscular Hemoglobin Concent 32.3 Red Cell Distribution Width 14.9 H Platelet Count 188 Mean Platelet Volume 10.8 H Neutrophils % 65.3 Lymphocytes % 20.4 Monocytes % 10.4 Eosinophils % 2.7 Basophils % 0.6 Nucleated Red Blood Cells % 0.0 Neutrophils # 4.3 Lymphocytes # 1.4 Monocytes # 0.7 Eosinophils # 0.2 Basophils # 0.0 Nucleated Red Blood Cells # 0.0 Sodium Level 139 Potassium Level 3.5 Chloride Level 102 Carbon Dioxide Level 26 Anion Gap 15 Blood Urea Nitrogen 55 H Creatinine 1.74 H Glucose Level 62 #L Calcium Level 8.2 L Total Bilirubin 0.5 Direct Bilirubin 0.00 Indirect Bilirubin 0.5 Aspartate Amino Transf (AST/SGOT) 33 Alanine Aminotransferase (ALT/SGPT) 31 Alkaline Phosphatase 242 H B-Type Natriuretic Peptide 19847 H Total Protein 6.4 Albumin 2.9 L Globulin 3.50 H Albumin/Globulin Ratio 0.82 Digoxin Level < 0.4 L Test 09/26/17 07:44 09/26/17 07:45 Bedside Glucose 68 L 70 Medications Current Medications Ondansetron HCl (Zofran Inj) 4 mg Q6H PRN IV NAUSEA AND/OR VOMITING; Start at 23:00 Acetaminophen (Tylenol Tab) 650 mg Q6H PRN PO PAIN LEVEL 1-3 OR FEVER Last administered on 09/24/17 12:38; Admin Dose 650 MG; Start 09/23/17 at 23:00 Docusate Sodium (Colace) 100 mg Q12H PRN PO CONSTIPATION; Start 09/23/17 at 23 :00 Bisacodyl (Dulcolax) 5 mg DAILY PRN PO CONSTIPATION; Start 09/23/17 at 23:00 Pantoprazole (Protonix Iv) 40 mg DAILY@06 IV Last administered on 09/26/17 06: 11; Admin Dose 40 MG; Start 09/24/17 at 06:00 Allopurinol (Zyloprim) 300 mg DAILY PO Last administered on 09/25/17 08:26; Admin Dose 300 MG; Start 09/24/17 at 09:00 Amiodarone HCl (Cordarone) 200 mg DAILY PO Last administered on 09/25/17 08:26 ; Admin Dose 200 MG; Start 09/24/17 at 09:00 Apixaban (Eliquis) 2.5 mg BID PO Last administered on 09/25/17 21:04; Admin Dose 2.5 MG; Start 09/24/17 at 09:00 Atorvastatin Calcium (Lipitor) 40 mg QHS PO Last administered on 09/25/17 21: 04; Admin Dose 40 MG; Start 09/24/17 at 21:00 Carvedilol (Coreg) 3.125 mg BID PO Last administered on 09/25/17 21:05; Admin Dose 3.125 MG; Start 09/24/17 at 09:00 Acetaminophen/ Hydrocodone Bitart 1 tab 1 tab Q4H PRN PO pain; Start 09/24/17 at 12:00 Levofloxacin/ Dextrose (Levaquin 500mg/ D5W 100 ml (Pmx)) 100 ml @ 100 mls/hr Q48H IVPB Last administered on 09/24/17 17:24; Admin Dose 100 MLS/HR; Start 09/24/17 at 17:00 Diagnostic Test (Pha) (Accu-Chek) 1 ea 02 XX ; Start 09/26/17 at 02:00 Diagnostic Test (Pha) (Accu-Chek) 1 ea 02 XX ; Start 09/26/17 at 02:00 Guaifenesin (Robitussin Liquid Cup) 100 mg Q4H PRN PO COUGH Last administered on 09/25/17 16:00; Admin Dose 100 MG; Start 09/25/17 at 12:30 Miscellaneous Information 1 ea NOTE XX ; Start 09/25/17 at 12:30 Glucose (Glutose) 15 gm Q15M PRN PO DECREASED GLUCOSE; Start 09/25/17 at 12:30 Glucose (Glutose) 22.5 gm Q15M PRN PO DECREASED GLUCOSE; Start 09/25/17 at 12: 30 Dextrose (D50w Syringe) 25 ml Q15M PRN IV DECREASED GLUCOSE; Start 09/25/17 at 12:30 Dextrose (D50w Syringe) 50 ml Q15M PRN IV DECREASED GLUCOSE; Start 09/25/17 at 12:30 Glucagon (Glucagen) 1 mg Q15M PRN IM DECREASED GLUCOSE; Start 09/25/17 at 12:30 Glucose (Glutose) 15 gm Q15M PRN BUCCAL DECREASED GLUCOSE; Start 09/25/17 at 12 :30 Ferrous Sulfate (Ferrous Sulfate (Ec)) 325 mg BID PO ; Start 09/26/17 at 09:00 Assessment/Plan Chief Complaint/Hosp Course 1. CHF: acute on chronic due to systolic dysfunction : stable now 2. ? bronchitis/ pneumonia 3. pleural effusion s./p thoracentesis 4. renal failure: acute on chronic 5. HTN 6. CAD 7./ HX PCI 8./ Severe anemia 9. dyslipidemia 10. P afib: currently in NSR 11. Fe deficiency Recommendations: S/P Thoracentesis abx as per IM cont coreg ELIQUIS OB stool was negative. echo reviewed. EF now has improved post BIV.ICD to 45%. will change to po bumex Feso4 was started. dc planning today or tomorrow? Thank you for his referral. I will continue to follow along with you. COLIN BERGERON MD [facility] Problems: COLIN BERGERON MD Sep 26, 2017 08:15
[2017-09-26] MEDS ORDERED: POTASSIUM CHLORIDE (SR) 20 MEQ TAB PO STA (08:16)
[2017-09-26] MEDS ORDERED: SPIRONOLACTONE 25 MG TAB PO SCH (09:00)
[2017-09-26] MEDS ORDERED: FERROUS SULFATE (EC) 325 MG TAB PO SCH (09:00)
[2017-09-26] MEDS: AMIODARONE 200 MG TAB PO SCH (09:10)
[2017-09-26] MEDS: ALLOPURINOL 300 MG TAB PO SCH (09:10)
[2017-09-26] MEDS: APIXABAN 5 MG TABLET PO SCH (09:11)
--- NOTE | 2017-09-26 11:06 | PN ---
DATE: 09/26/2017 SUBJECTIVE: The patient is clinically improving. No events overnight. OBJECTIVE: VITAL SIGNS: Blood pressure 109/60, temperature 98.0, pulse 62, respiration 18. HEENT: Head is normocephalic. NECK: Supple. HEART: Regular rate. LUNGS: Show diminished breath sounds at the base. ABDOMEN: Soft, nontender to palpation. No rebound or guarding. EXTREMITIES: Negative for clubbing, cyanosis. Trace edema. DERMATOLOGIC: No rashes. MUSCULOSKELETAL: No joint effusions. NEUROLOGIC: No change in exam. MEDICATIONS: The patient's medications have been reviewed. LABORATORY DATA: Shows a white count 6.6, hemoglobin 8.5, hematocrit 26.3, platelet count is 188. BMP shows a sodium 139, potassium 3.5, BUN 55, creatinine 1.74. ASSESSMENT AND PLAN: 1. Nonoliguric acute kidney injury on top of chronic kidney disease stage IV with previous baseline creatinine of 2.0 mg/dL. Etiology of acute kidney injury is secondary to cardiorenal syndrome. Re nal function is improved. Continue current diuretic regimen. 2. Acute on chronic congestive heart failure exacerbation. Continue medical management. Follow up with cardiology. 3. Anemia. Continue to monitor hemoglobin and hematocrit levels. 4. Mineral bone disorder. Monitor calcium and phosphorus levels. 5. Acute bronchitis. Continue Levaquin. 6. Hypertension. Continue current blood pressure regimen. 7. Coronary artery disease. Continue medical management. 8. Dyslipidemia. Continue statin therapy. 9. History of paroxysmal atrial fibrillation, currently in sinus rhythm. Continue to monitor. Dictated By: ANIL PERALES/LANG Conf#: [id number] DID#: [id number]
--- NOTE | 2017-09-26 15:45 | PDOCDIS ---
Discharge Instructions DIAGNOSIS Discharge Diagnosis CHF exacerbation. CONDITION Patient Condition: Stable HOME CARE INSTRUCTIONS: Special Diet: RENAL FOLLOW UP/APPOINTMENTS Follow-up Plan 1. Alfa Macias MD Specialty Cardiology Office Address [address] [place] [address] Office 2. James Savage DO Specialty Nephrology Office Address [address] [place] [address] Office OTHER ORDERS: Other Orders: 1. Medications as per prescription. 2. Take a renal diet. 3. Follow-up with your safety inspector (Dr. Macias) in 2 weeks. 4. Follow-up with your fraud investigator [Dr. Savage] in 2 weeks. 5. Activities as tolerated. 1. Medicamentos segn receta. 2. [place] reece dieta renal. 3. Kamlesh un seguimiento con ramires cardilogo (Dr. Macias) en 2 semanas. 4. Kamlesh un seguimiento con ramires nefrlogo [Dr. Savage] en 2 semanas. 5. Actividades segn la tolerancia. MISHA LANDRY NP Sep 26, 2017 15:45
--- NOTE | 2017-09-26 15:45 | PDOCDIS ---
Discharge Instructions DIAGNOSIS Discharge Diagnosis CHF exacerbation. CONDITION Patient Condition: Stable HOME CARE INSTRUCTIONS: Special Diet: RENAL FOLLOW UP/APPOINTMENTS Follow-up Plan 1. Alfa Macias MD Specialty Cardiology Office Address [address] [place] [address] Office 2. James Savage DO Specialty Nephrology Office Address [address] [place] [address] Office OTHER ORDERS: Other Orders: 1. Medications as per prescription. 2. Take a renal diet. 3. Follow-up with your leak detector (Dr. Macias) in 2 weeks. 4. Follow-up with your e commerce marketing manager [Dr. Savage] in 2 weeks. 5. Activities as tolerated. 1. Medicamentos segn receta. 2. [place] reece dieta renal. 3. Kamlesh un seguimiento con ramires cardilogo (Dr. Macias) en 2 semanas. 4. Kamlesh un seguimiento con ramires nefrlogo [Dr. Savage] en 2 semanas. 5. Actividades segn la tolerancia. MISHA LANDRY NP Sep 26, 2017 15:45
--- NOTE | 2017-09-26 15:45 | PDOCDIS ---
Discharge Instructions DIAGNOSIS Discharge Diagnosis CHF exacerbation. CONDITION Patient Condition: Stable HOME CARE INSTRUCTIONS: Special Diet: RENAL FOLLOW UP/APPOINTMENTS Follow-up Plan 1. Alfa Macias MD Specialty Cardiology Office Address [address] [facility] [address] [place] [address] Office 2. James Savage DO Specialty Nephrology Office Address [address] [facility] [address] [place] [address] Office OTHER ORDERS: Other Orders: 1. Medications as per prescription. 2. Take a renal diet. 3. Follow-up with your ticket manager (Dr. Macias) in 2 weeks. 4. Follow-up with your top screw [Dr. Savage] in 2 weeks. 5. Activities as tolerated. 1. Medicamentos segn receta. 2. Van reece dieta renal. 3. Kamlesh un seguimiento con ramires cardilogo (Dr. Macias) en 2 semanas. 4. Kamlesh un seguimiento con ramires nefrlogo [Dr. Savage] en 2 semanas. 5. Actividades segn la tolerancia. MISHA LANDRY NP Sep 26, 2017 15:45
[2017-09-26] MEDS ORDERED: BUME1TAB18 PO (15:57)
[2017-09-26] MEDS ORDERED: SPIR25TA PO (16:00)
[2017-09-26] MEDS ORDERED: FER325 PO (16:00)
[2017-09-26] MEDS ORDERED: LEVO500T10 PO (16:02)
[2017-09-26] MEDS: LEVOFLOXACIN 500MG/D5W (PMX) 100 ML IVPB SCH (16:34)
--- NOTE | 2017-09-26 17:20 | DS ---
Date/Time of Note Date/Time of Note DATE: 09/26/17 TIME: 17:16 Discharge Summary Admission/Discharge Info Admit Date/Time Sep 23, 2017 at 21:14 Discharge Date/Time Discharge Diagnosis 1. Acute on chronic systolic heart failure. 2. Possible underlying acute tracheobronchitis. 3. Right pleural effusion. Status post right-sided thoracentesis on 2016 with drainage of 0.450 L of serous fluid. 4. Cardiomyopathy. Ejection fraction of 45%. 5. Paroxysmal atrial fibrillation. 6. CAD. 7. Acute on chronic kidney disease. 8. Dyslipidemia. 9. Essential hypertension. 10. Type 2 diabetes mellitus. Hemoglobin A1c 6.2. 11. Normocytic, normochromic anemia. 12. Iron deficiency. 13. Pulmonary hypertension. Patient Condition: Stable Consults 1. Alfa Macias MD, Cardiology. 2. James Savage DO, Nephrology. Procedures Bilateral Lower Extremity Venous Doppler Study IMPRESSION: No sonographic evidence for deep venous thrombosis. 2D Echocardiogram Conclusions 1. Normal left ventricular cavity size. Normal left ventricular wall thickness. Mild left ventricular systolic dysfunction. Ejection fraction is visually estimated at 45 %. 2. Upper limit of normal left atrial size. 3. Mild mitral leaflet calcification. Mild mitral annular calcification. Mild mitral valve regurgitation. 4. No significant aortic stenosis or insufficiency. Aortic cusps appear mildly calcified. 5. Normal appearance of the tricuspid valve. Estimated peak PA systolic pressure 55 mmHg. There is mild to moderate tricuspid regurgitation. 6. Dilated IVC without respiratory collapse consistent with elevated right atrial pressure. 7. Small pericardial effusion. Pleural effusion seen. Ultrasound-Guided Right-Sided Thoracentesis FINDINGS: Initial ultrasound demonstrates fluid in the right pleural space. Approximately 0.450liters of serous fluid was aspirated and discarded. IMPRESSION: 1. Satisfactory ultrasound-guided right thoracentesis. X-Ray Post Right Thoracentesis IMPRESSION: 1. Small right pleural effusion with adjacent subsegmental atelectasis, grossly unchanged. 2. Trace left pleural effusion. Hx of Present Illness This is a 66-year-old male with a past medical history of colon cancer status post resection now in remission, atrial fibrillation on amiodarone status post pacemaker placement currently being paced, congestive heart failure who presented with cough and shortness of breath over the last week, worsening over the last 2 days, with bilateral lower extremity edema, right worse than left. He also has had cold-like symptoms with congestion over the last several days. The patient's cough was congested, but he did not endorse productive sputum. The patient denied feeling sick recently. The patient denied fever or chills. The patient has had no headache or vision changes. The patient did not endorse neck or back pain. The patient denied lightheadedness or dizziness. The patient denied nausea or vomiting. The patient denied abdominal pain or changes to bowel movements or urination. The patient has had no focal deficits. The patient has had no weakness or numbness or tingling to the face or extremities. Hospital Course The patient was admitted to inpatient telemetry floor. A cardiology and nephrology consult was obtained. The patient had evidence of acute on chronic systolic heart failure. The patient was diuresed adequately. The patient underwent a 2D echocardiogram that showed ejection fraction of 45%. The patient was maintained on beta-blockers. EMMIE inhibitors or ARB's were avoided because of his underlying chronic kidney disease. During the latter part of the patient's hospital stay, he was started on aldosterone antagonists. The patient had bilateral pleural effusions right greater than left. The patient underwent a right-sided thoracentesis with drainage of approximately half liter of serous fluid. The patient's fluid culture was negative. Pathology from the patient's thoracentesis is pending at this time. The patient 's fluid analysis showed evidence of transudative fluid. The patient's right- sided pleural effusion is most probably secondary to his underlying congestive heart failure. The patient also had evidence of underlying tracheobronchitis. The patient was started on antibiotics with improvement of the patient's symptoms. The patient has history of paroxysmal atrial fibrillation. The patient remained in sinus rhythm. The patient was maintained on factor Xa inhibitors for stroke prophylaxis. The patient was maintained on beta-blockers and amiodarone. Patient also has a history of CAD and he is status post PTCA in the past. The patient was maintained on apixaban and statins. The patient has underlying chronic kidney disease with the patient was being followed by nephrology. The patient has underlying dyslipidemia. He was maintained on statins. The patient was noticed to have normocytic, normochromic anemia. The etiology of this remains unclear. The patient's stool for OB 1 was negative. The patient's iron panel showed evidence of iron deficiency. Consequently, the patient was started on iron supplements. The patient has a history of type 2 diabetes mellitus. The patient is off medications at home. The patient's hemoglobin A1c was found to be 6.2 indicating good blood glucose control over the past few weeks. The patient was maintained on sliding scale insulin with well-controlled blood sugars. The patient had a stable hospital course. The patient is stable to be discharged home. The patient was cleared by consultants to be discharged home. Patient denied any complaints at the time of discharge. Discharge Instructions 1. Medications as per prescription. 2. Take a renal diet. 3. Follow-up with your wafer substrate tester (Dr. Macias) in 2 weeks. 4. Follow-up with your academic affairs coordinator [Dr. Savage] in 2 weeks. 5. Activities as tolerated. Patient verbalized understanding of his discharge instructions. At this time I would like to thank all the consultants for seeing the patient and providing clinical recommendations. Case discussed with Dr. Jenkins. Home Meds Active Scripts Levofloxacin* (Levofloxacin*) 500 Mg Tablet, 500 MG PO Q48H, #5 TAB Renal dosing. Prov:MISHA LANDRY NP 09/26/17 Spironolactone* (Aldactone*) 25 Mg Tablet, 12.5 MG PO DAILY, #15 TAB 25 mg tab 1/2 tab (12.5 mg) orally daily. Prov:MISHA LANDRY NP 09/26/17 Ferrous Sulfate* (Ferrous Sulfate*) 325 Mg Tabec, 325 MG PO BID, #60 TAB Prov:MISHA LANDRY NP 09/26/17 Bumetanide* (Bumetanide*) 1 Mg Tablet, 1 MG PO BID DIURETICS, #60 TAB Prov:MISHA LANDRY NP 09/26/17 Allopurinol* (Allopurinol*) 300 Mg Tablet, 300 MG PO DAILY for 30 Days, #30 TAB Prov:TOREY SALEEM 06/25/17 Reported Medications Carvedilol* (Carvedilol*) 3.125 Mg Tablet, 3.125 MG PO BID, #60 TAB 09/23/17 Atorvastatin* (Atorvastatin*) 40 Mg Tablet, 40 MG PO QHS, #30 TAB 09/23/17 Amiodarone Hcl* (Amiodarone Hcl*) 200 Mg Tablet, 200 MG PO DAILY, #30 TAB 09/23/17 Apixaban* (Eliquis*) 2.5 Mg Tablet, 2.5 MG PO BID, TAB 09/23/17 Discontinued Reported Medications Bumetanide* (Bumetanide*) 2 Mg Tablet, 2 MG PO BID, TAB 09/23/17 Discontinued Scripts Bumetanide* (Bumetanide*) 1 Mg Tablet, 1 MG PO DAILY for 30 Days, #30 TAB Prov:TOREY SALEEM 06/25/17 Spironolactone* (Aldactone*) 25 Mg Tablet, 12.5 MG PO DAILY for 30 Days, #15 TAB 2 Refills Prov:TOREY SALEEM 06/25/17 Amiodarone Hcl* (Amiodarone Hcl*) 100 Mg Tablet, 100 MG PO DAILY, #30 TAB Prov:TOREY SALEEM 06/25/17 Isosorbide Mononitrate* (Isosorbide Mononitrate*) 30 Mg Tab.er.24h, 30 MG PO DAILY for 30 Days, #30 Prov:TOREY SALEEM 06/25/17 Carvedilol* (Carvedilol*) 3.125 Mg Tablet, 3.125 MG PO BID for 30 Days, #60 TAB Prov:TOREY SALEEM 06/25/17 Atorvastatin* (Atorvastatin*) 40 Mg Tablet, 40 MG PO HS for 30 Days, #30 TAB Prov:TOREY SALEEM 06/25/17 Follow-up Plan 1. Alfa Macias MD Specialty Cardiology Office Address [address] [facility] [address] [place] [address] Office 2. James Savage DO Specialty Nephrology Office Address [address] [facility] [address] [place] [address] Office Primary Care Provider Not On Staff Doctor Time spent on discharge: 45 minutes. Pending Labs Laboratory Tests Test 09/25/17 17:37 09/25/17 21:01 09/26/17 07:08 09/26/17 07:44 Bedside Glucose 102mg/dL (70-220) 79mg/dL (70-220) 68mg/dL (70-220) White Blood Count 6.610^3/ul (4.8-10.8) Red Blood Count 2.7010^6/ul (4.70-6.10) Hemoglobin 8.5g/dl (14.0-18.0) Hematocrit 26.3% (42.0-52.0) Mean Corpuscular Volume 97.4fl (82.0-101.0) Mean Corpuscular Hemoglobin 31.5pg (29.0-33.0) Mean Corpuscular Hemoglobin Concent 32.3g/dl (32.0-37.0) Red Cell Distribution Width 14.9% (11.5-14.5) Platelet Count 65443^3/UL (140-415) Mean Platelet Volume 10.8fl (7.4-10.4) Neutrophils % 65.3% (39.0-77.0) Lymphocytes % 20.4% (15.0-51.0) Monocytes % 10.4% (0.0-11.0) Eosinophils % 2.7% (0.0-7.0) Basophils % 0.6% (0.0-2.0) Nucleated Red Blood Cells % 0.0/100WBC (0.0-0.0) Neutrophils # 4.310^3/ul (1.6-7.5) Lymphocytes # 1.410^3/ul (0.8-2.9) Monocytes # 0.710^3/ul (0.3-0.9) Eosinophils # 0.210^3/ul (0.0-0.5) Basophils # 0.010^3/ul (0.0-0.1) Nucleated Red Blood Cells # 0.010^3/ul (0.0-0.0) Prothrombin Time 19.8Sec (12.2-14.2) Prothrombin Time Ratio 1.5 INR International Normalized Ratio 1.67 Activated Partial Thromboplast Time 55.2Sec (25.0-35.0) Sodium Level 139mmol/L (135-144) Potassium Level 3.5mmol/L (3.5-5.1) Chloride Level 102mmol/L (97-110) Carbon Dioxide Level 26mmol/L (21-31) Anion Gap 15 (8-16) Blood Urea Nitrogen 55mg/dl (7-20) Creatinine 1.74mg/dl (0.61-1.24) Glucose Level 62mg/dl (70-220) Calcium Level 8.2mg/dl (8.4-10.2) Phosphorus Level 3.9mg/dl (2.5-4.9) Magnesium Level 2.0mg/dl (1.7-2.5) Total Bilirubin 0.5mg/dl (0.2-1.3) Direct Bilirubin 0.00mg/dl (0.00-0.20) Indirect Bilirubin 0.5mg/dl (0-1.1) Aspartate Amino Transf (AST/SGOT) 33IU/L (15-46) Alanine Aminotransferase (ALT/SGPT) 31IU/L (13-69) Alkaline Phosphatase 242IU/L (42-121) B-Type Natriuretic Peptide 54892DI/ML (0-125) Total Protein 6.4g/dl (6.1-8.1) Albumin 2.9g/dl (3.3-4.9) Globulin 3.50g/dl (1.3-3.2) Albumin/Globulin Ratio 0.82 Digoxin Level < 0.4ng/ml (1.0-2.0) Test 09/26/17 07:45 09/26/17 12:26 09/26/17 16:36 Bedside Glucose 70mg/dL (70-220) 113mg/dL (70-220) 122mg/dL (70-220) MISHA LANDRY NP Sep 26, 2017 17:20
--- NOTE | 2017-09-26 17:20 | DS ---
Date/Time of Note Date/Time of Note DATE: 09/26/17 TIME: 17:16 Discharge Summary Admission/Discharge Info Admit Date/Time Sep 23, 2017 at 21:14 Discharge Date/Time Discharge Diagnosis 1. Acute on chronic systolic heart failure. 2. Possible underlying acute tracheobronchitis. 3. Right pleural effusion. Status post right-sided thoracentesis on 2016 with drainage of 0.450 L of serous fluid. 4. Cardiomyopathy. Ejection fraction of 45%. 5. Paroxysmal atrial fibrillation. 6. CAD. 7. Acute on chronic kidney disease. 8. Dyslipidemia. 9. Essential hypertension. 10. Type 2 diabetes mellitus. Hemoglobin A1c 6.2. 11. Normocytic, normochromic anemia. 12. Iron deficiency. 13. Pulmonary hypertension. Patient Condition: Stable Consults 1. Alfa Macias MD, Cardiology. 2. James Savage DO, Nephrology. Procedures Bilateral Lower Extremity Venous Doppler Study IMPRESSION: No sonographic evidence for deep venous thrombosis. 2D Echocardiogram Conclusions 1. Normal left ventricular cavity size. Normal left ventricular wall thickness. Mild left ventricular systolic dysfunction. Ejection fraction is visually estimated at 45 %. 2. Upper limit of normal left atrial size. 3. Mild mitral leaflet calcification. Mild mitral annular calcification. Mild mitral valve regurgitation. 4. No significant aortic stenosis or insufficiency. Aortic cusps appear mildly calcified. 5. Normal appearance of the tricuspid valve. Estimated peak PA systolic pressure 55 mmHg. There is mild to moderate tricuspid regurgitation. 6. Dilated IVC without respiratory collapse consistent with elevated right atrial pressure. 7. Small pericardial effusion. Pleural effusion seen. Ultrasound-Guided Right-Sided Thoracentesis FINDINGS: Initial ultrasound demonstrates fluid in the right pleural space. Approximately 0.450liters of serous fluid was aspirated and discarded. IMPRESSION: 1. Satisfactory ultrasound-guided right thoracentesis. X-Ray Post Right Thoracentesis IMPRESSION: 1. Small right pleural effusion with adjacent subsegmental atelectasis, grossly unchanged. 2. Trace left pleural effusion. Hx of Present Illness This is a 66-year-old male with a past medical history of colon cancer status post resection now in remission, atrial fibrillation on amiodarone status post pacemaker placement currently being paced, congestive heart failure who presented with cough and shortness of breath over the last week, worsening over the last 2 days, with bilateral lower extremity edema, right worse than left. He also has had cold-like symptoms with congestion over the last several days. The patient's cough was congested, but he did not endorse productive sputum. The patient denied feeling sick recently. The patient denied fever or chills. The patient has had no headache or vision changes. The patient did not endorse neck or back pain. The patient denied lightheadedness or dizziness. The patient denied nausea or vomiting. The patient denied abdominal pain or changes to bowel movements or urination. The patient has had no focal deficits. The patient has had no weakness or numbness or tingling to the face or extremities. Hospital Course The patient was admitted to inpatient telemetry floor. A cardiology and nephrology consult was obtained. The patient had evidence of acute on chronic systolic heart failure. The patient was diuresed adequately. The patient underwent a 2D echocardiogram that showed ejection fraction of 45%. The patient was maintained on beta-blockers. EMMIE inhibitors or ARB's were avoided because of his underlying chronic kidney disease. During the latter part of the patient's hospital stay, he was started on aldosterone antagonists. The patient had bilateral pleural effusions right greater than left. The patient underwent a right-sided thoracentesis with drainage of approximately half liter of serous fluid. The patient's fluid culture was negative. Pathology from the patient's thoracentesis is pending at this time. The patient 's fluid analysis showed evidence of transudative fluid. The patient's right- sided pleural effusion is most probably secondary to his underlying congestive heart failure. The patient also had evidence of underlying tracheobronchitis. The patient was started on antibiotics with improvement of the patient's symptoms. The patient has history of paroxysmal atrial fibrillation. The patient remained in sinus rhythm. The patient was maintained on factor Xa inhibitors for stroke prophylaxis. The patient was maintained on beta-blockers and amiodarone. Patient also has a history of CAD and he is status post PTCA in the past. The patient was maintained on apixaban and statins. The patient has underlying chronic kidney disease with the patient was being followed by nephrology. The patient has underlying dyslipidemia. He was maintained on statins. The patient was noticed to have normocytic, normochromic anemia. The etiology of this remains unclear. The patient's stool for OB 1 was negative. The patient's iron panel showed evidence of iron deficiency. Consequently, the patient was started on iron supplements. The patient has a history of type 2 diabetes mellitus. The patient is off medications at home. The patient's hemoglobin A1c was found to be 6.2 indicating good blood glucose control over the past few weeks. The patient was maintained on sliding scale insulin with well-controlled blood sugars. The patient had a stable hospital course. The patient is stable to be discharged home. The patient was cleared by consultants to be discharged home. Patient denied any complaints at the time of discharge. Discharge Instructions 1. Medications as per prescription. 2. Take a renal diet. 3. Follow-up with your ground operations supervisor (Dr. Macias) in 2 weeks. 4. Follow-up with your area plant manager [Dr. Savage] in 2 weeks. 5. Activities as tolerated. Patient verbalized understanding of his discharge instructions. At this time I would like to thank all the consultants for seeing the patient and providing clinical recommendations. Case discussed with Dr. Jenkins. Home Meds Active Scripts Levofloxacin* (Levofloxacin*) 500 Mg Tablet, 500 MG PO Q48H, #5 TAB Renal dosing. Prov:MISHA LANDRY NP 09/26/17 Spironolactone* (Aldactone*) 25 Mg Tablet, 12.5 MG PO DAILY, #15 TAB 25 mg tab 1/2 tab (12.5 mg) orally daily. Prov:MISHA LANDRY NP 09/26/17 Ferrous Sulfate* (Ferrous Sulfate*) 325 Mg Tabec, 325 MG PO BID, #60 TAB Prov:MISHA LANDRY NP 09/26/17 Bumetanide* (Bumetanide*) 1 Mg Tablet, 1 MG PO BID DIURETICS, #60 TAB Prov:MISHA LANDRY NP 09/26/17 Allopurinol* (Allopurinol*) 300 Mg Tablet, 300 MG PO DAILY for 30 Days, #30 TAB Prov:TOREY SALEEM 06/25/17 Reported Medications Carvedilol* (Carvedilol*) 3.125 Mg Tablet, 3.125 MG PO BID, #60 TAB 09/23/17 Atorvastatin* (Atorvastatin*) 40 Mg Tablet, 40 MG PO QHS, #30 TAB 09/23/17 Amiodarone Hcl* (Amiodarone Hcl*) 200 Mg Tablet, 200 MG PO DAILY, #30 TAB 09/23/17 Apixaban* (Eliquis*) 2.5 Mg Tablet, 2.5 MG PO BID, TAB 09/23/17 Discontinued Reported Medications Bumetanide* (Bumetanide*) 2 Mg Tablet, 2 MG PO BID, TAB 09/23/17 Discontinued Scripts Bumetanide* (Bumetanide*) 1 Mg Tablet, 1 MG PO DAILY for 30 Days, #30 TAB Prov:TOREY SALEEM 06/25/17 Spironolactone* (Aldactone*) 25 Mg Tablet, 12.5 MG PO DAILY for 30 Days, #15 TAB 2 Refills Prov:TOREY SALEEM 06/25/17 Amiodarone Hcl* (Amiodarone Hcl*) 100 Mg Tablet, 100 MG PO DAILY, #30 TAB Prov:TOREY SALEEM 06/25/17 Isosorbide Mononitrate* (Isosorbide Mononitrate*) 30 Mg Tab.er.24h, 30 MG PO DAILY for 30 Days, #30 Prov:TOREY SALEEM 06/25/17 Carvedilol* (Carvedilol*) 3.125 Mg Tablet, 3.125 MG PO BID for 30 Days, #60 TAB Prov:TOREY SALEEM 06/25/17 Atorvastatin* (Atorvastatin*) 40 Mg Tablet, 40 MG PO HS for 30 Days, #30 TAB Prov:TOREY SALEEM 06/25/17 Follow-up Plan 1. Alfa Macias MD Specialty Cardiology Office Address [address] [facility] [address] [place] [address] Office 2. James Savage DO Specialty Nephrology Office Address [address] [facility] [address] [place] [address] Office Primary Care Provider Not On Staff Doctor Time spent on discharge: 45 minutes. Pending Labs Laboratory Tests Test 09/25/17 17:37 09/25/17 21:01 09/26/17 07:08 09/26/17 07:44 Bedside Glucose 102mg/dL (70-220) 79mg/dL (70-220) 68mg/dL (70-220) White Blood Count 6.610^3/ul (4.8-10.8) Red Blood Count 2.7010^6/ul (4.70-6.10) Hemoglobin 8.5g/dl (14.0-18.0) Hematocrit 26.3% (42.0-52.0) Mean Corpuscular Volume 97.4fl (82.0-101.0) Mean Corpuscular Hemoglobin 31.5pg (29.0-33.0) Mean Corpuscular Hemoglobin Concent 32.3g/dl (32.0-37.0) Red Cell Distribution Width 14.9% (11.5-14.5) Platelet Count 72329^3/UL (140-415) Mean Platelet Volume 10.8fl (7.4-10.4) Neutrophils % 65.3% (39.0-77.0) Lymphocytes % 20.4% (15.0-51.0) Monocytes % 10.4% (0.0-11.0) Eosinophils % 2.7% (0.0-7.0) Basophils % 0.6% (0.0-2.0) Nucleated Red Blood Cells % 0.0/100WBC (0.0-0.0) Neutrophils # 4.310^3/ul (1.6-7.5) Lymphocytes # 1.410^3/ul (0.8-2.9) Monocytes # 0.710^3/ul (0.3-0.9) Eosinophils # 0.210^3/ul (0.0-0.5) Basophils # 0.010^3/ul (0.0-0.1) Nucleated Red Blood Cells # 0.010^3/ul (0.0-0.0) Prothrombin Time 19.8Sec (12.2-14.2) Prothrombin Time Ratio 1.5 INR International Normalized Ratio 1.67 Activated Partial Thromboplast Time 55.2Sec (25.0-35.0) Sodium Level 139mmol/L (135-144) Potassium Level 3.5mmol/L (3.5-5.1) Chloride Level 102mmol/L (97-110) Carbon Dioxide Level 26mmol/L (21-31) Anion Gap 15 (8-16) Blood Urea Nitrogen 55mg/dl (7-20) Creatinine 1.74mg/dl (0.61-1.24) Glucose Level 62mg/dl (70-220) Calcium Level 8.2mg/dl (8.4-10.2) Phosphorus Level 3.9mg/dl (2.5-4.9) Magnesium Level 2.0mg/dl (1.7-2.5) Total Bilirubin 0.5mg/dl (0.2-1.3) Direct Bilirubin 0.00mg/dl (0.00-0.20) Indirect Bilirubin 0.5mg/dl (0-1.1) Aspartate Amino Transf (AST/SGOT) 33IU/L (15-46) Alanine Aminotransferase (ALT/SGPT) 31IU/L (13-69) Alkaline Phosphatase 242IU/L (42-121) B-Type Natriuretic Peptide 84181HM/ML (0-125) Total Protein 6.4g/dl (6.1-8.1) Albumin 2.9g/dl (3.3-4.9) Globulin 3.50g/dl (1.3-3.2) Albumin/Globulin Ratio 0.82 Digoxin Level < 0.4ng/ml (1.0-2.0) Test 09/26/17 07:45 09/26/17 12:26 09/26/17 16:36 Bedside Glucose 70mg/dL (70-220) 113mg/dL (70-220) 122mg/dL (70-220) MISHA LANDRY NP Sep 26, 2017 17:20
--- NOTE | 2017-09-26 17:20 | DS ---
Date/Time of Note Date/Time of Note DATE: 09/26/17 TIME: 17:16 Discharge Summary Admission/Discharge Info Admit Date/Time Sep 23, 2017 at 21:14 Discharge Date/Time Discharge Diagnosis 1. Acute on chronic systolic heart failure. 2. Possible underlying acute tracheobronchitis. 3. Right pleural effusion. Status post right-sided thoracentesis on 2016 with drainage of 0.450 L of serous fluid. 4. Cardiomyopathy. Ejection fraction of 45%. 5. Paroxysmal atrial fibrillation. 6. CAD. 7. Acute on chronic kidney disease. 8. Dyslipidemia. 9. Essential hypertension. 10. Type 2 diabetes mellitus. Hemoglobin A1c 6.2. 11. Normocytic, normochromic anemia. 12. Iron deficiency. 13. Pulmonary hypertension. Patient Condition: Stable Consults 1. Alfa Macias MD, Cardiology. 2. James Savage DO, Nephrology. Procedures Bilateral Lower Extremity Venous Doppler Study IMPRESSION: No sonographic evidence for deep venous thrombosis. 2D Echocardiogram Conclusions 1. Normal left ventricular cavity size. Normal left ventricular wall thickness. Mild left ventricular systolic dysfunction. Ejection fraction is visually estimated at 45 %. 2. Upper limit of normal left atrial size. 3. Mild mitral leaflet calcification. Mild mitral annular calcification. Mild mitral valve regurgitation. 4. No significant aortic stenosis or insufficiency. Aortic cusps appear mildly calcified. 5. Normal appearance of the tricuspid valve. Estimated peak PA systolic pressure 55 mmHg. There is mild to moderate tricuspid regurgitation. 6. Dilated IVC without respiratory collapse consistent with elevated right atrial pressure. 7. Small pericardial effusion. Pleural effusion seen. Ultrasound-Guided Right-Sided Thoracentesis FINDINGS: Initial ultrasound demonstrates fluid in the right pleural space. Approximately 0.450liters of serous fluid was aspirated and discarded. IMPRESSION: 1. Satisfactory ultrasound-guided right thoracentesis. X-Ray Post Right Thoracentesis IMPRESSION: 1. Small right pleural effusion with adjacent subsegmental atelectasis, grossly unchanged. 2. Trace left pleural effusion. Hx of Present Illness This is a 66-year-old male with a past medical history of colon cancer status post resection now in remission, atrial fibrillation on amiodarone status post pacemaker placement currently being paced, congestive heart failure who presented with cough and shortness of breath over the last week, worsening over the last 2 days, with bilateral lower extremity edema, right worse than left. He also has had cold-like symptoms with congestion over the last several days. The patient's cough was congested, but he did not endorse productive sputum. The patient denied feeling sick recently. The patient denied fever or chills. The patient has had no headache or vision changes. The patient did not endorse neck or back pain. The patient denied lightheadedness or dizziness. The patient denied nausea or vomiting. The patient denied abdominal pain or changes to bowel movements or urination. The patient has had no focal deficits. The patient has had no weakness or numbness or tingling to the face or extremities. Hospital Course The patient was admitted to inpatient telemetry floor. A cardiology and nephrology consult was obtained. The patient had evidence of acute on chronic systolic heart failure. The patient was diuresed adequately. The patient underwent a 2D echocardiogram that showed ejection fraction of 45%. The patient was maintained on beta-blockers. EMMIE inhibitors or ARB's were avoided because of his underlying chronic kidney disease. During the latter part of the patient's hospital stay, he was started on aldosterone antagonists. The patient had bilateral pleural effusions right greater than left. The patient underwent a right-sided thoracentesis with drainage of approximately half liter of serous fluid. The patient's fluid culture was negative. Pathology from the patient's thoracentesis is pending at this time. The patient 's fluid analysis showed evidence of transudative fluid. The patient's right- sided pleural effusion is most probably secondary to his underlying congestive heart failure. The patient also had evidence of underlying tracheobronchitis. The patient was started on antibiotics with improvement of the patient's symptoms. The patient has history of paroxysmal atrial fibrillation. The patient remained in sinus rhythm. The patient was maintained on factor Xa inhibitors for stroke prophylaxis. The patient was maintained on beta-blockers and amiodarone. Patient also has a history of CAD and he is status post PTCA in the past. The patient was maintained on apixaban and statins. The patient has underlying chronic kidney disease with the patient was being followed by nephrology. The patient has underlying dyslipidemia. He was maintained on statins. The patient was noticed to have normocytic, normochromic anemia. The etiology of this remains unclear. The patient's stool for OB 1 was negative. The patient's iron panel showed evidence of iron deficiency. Consequently, the patient was started on iron supplements. The patient has a history of type 2 diabetes mellitus. The patient is off medications at home. The patient's hemoglobin A1c was found to be 6.2 indicating good blood glucose control over the past few weeks. The patient was maintained on sliding scale insulin with well-controlled blood sugars. The patient had a stable hospital course. The patient is stable to be discharged home. The patient was cleared by consultants to be discharged home. Patient denied any complaints at the time of discharge. Discharge Instructions 1. Medications as per prescription. 2. Take a renal diet. 3. Follow-up with your truck driving (Dr. Macias) in 2 weeks. 4. Follow-up with your seat cover maker [Dr. Savage] in 2 weeks. 5. Activities as tolerated. Patient verbalized understanding of his discharge instructions. At this time I would like to thank all the consultants for seeing the patient and providing clinical recommendations. Case discussed with Dr. Jenkins. Home Meds Active Scripts Levofloxacin* (Levofloxacin*) 500 Mg Tablet, 500 MG PO Q48H, #5 TAB Renal dosing. Prov:MISHA LANDRY NP 09/26/17 Spironolactone* (Aldactone*) 25 Mg Tablet, 12.5 MG PO DAILY, #15 TAB 25 mg tab 1/2 tab (12.5 mg) orally daily. Prov:MISHA LANDRY NP 09/26/17 Ferrous Sulfate* (Ferrous Sulfate*) 325 Mg Tabec, 325 MG PO BID, #60 TAB Prov:MISHA LANDRY NP 09/26/17 Bumetanide* (Bumetanide*) 1 Mg Tablet, 1 MG PO BID DIURETICS, #60 TAB Prov:MISHA LANDRY NP 09/26/17 Allopurinol* (Allopurinol*) 300 Mg Tablet, 300 MG PO DAILY for 30 Days, #30 TAB Prov:TOREY SALEEM 06/25/17 Reported Medications Carvedilol* (Carvedilol*) 3.125 Mg Tablet, 3.125 MG PO BID, #60 TAB 09/23/17 Atorvastatin* (Atorvastatin*) 40 Mg Tablet, 40 MG PO QHS, #30 TAB 09/23/17 Amiodarone Hcl* (Amiodarone Hcl*) 200 Mg Tablet, 200 MG PO DAILY, #30 TAB 09/23/17 Apixaban* (Eliquis*) 2.5 Mg Tablet, 2.5 MG PO BID, TAB 09/23/17 Discontinued Reported Medications Bumetanide* (Bumetanide*) 2 Mg Tablet, 2 MG PO BID, TAB 09/23/17 Discontinued Scripts Bumetanide* (Bumetanide*) 1 Mg Tablet, 1 MG PO DAILY for 30 Days, #30 TAB Prov:TOREY SALEEM 06/25/17 Spironolactone* (Aldactone*) 25 Mg Tablet, 12.5 MG PO DAILY for 30 Days, #15 TAB 2 Refills Prov:TOREY SALEEM 06/25/17 Amiodarone Hcl* (Amiodarone Hcl*) 100 Mg Tablet, 100 MG PO DAILY, #30 TAB Prov:TOREY SALEEM 06/25/17 Isosorbide Mononitrate* (Isosorbide Mononitrate*) 30 Mg Tab.er.24h, 30 MG PO DAILY for 30 Days, #30 Prov:TOREY SALEEM 06/25/17 Carvedilol* (Carvedilol*) 3.125 Mg Tablet, 3.125 MG PO BID for 30 Days, #60 TAB Prov:TOREY SALEEM 06/25/17 Atorvastatin* (Atorvastatin*) 40 Mg Tablet, 40 MG PO HS for 30 Days, #30 TAB Prov:TOREY SALEEM 06/25/17 Follow-up Plan 1. Alfa Macias MD Specialty Cardiology Office Address [address] [place] [address] Office 2. James Savage DO Specialty Nephrology Office Address [address] [place] [address] Office Primary Care Provider Not On Staff Doctor Time spent on discharge: 45 minutes. Pending Labs Laboratory Tests Test 09/25/17 17:37 09/25/17 21:01 09/26/17 07:08 09/26/17 07:44 Bedside Glucose 102mg/dL (70-220) 79mg/dL (70-220) 68mg/dL (70-220) White Blood Count 6.610^3/ul (4.8-10.8) Red Blood Count 2.7010^6/ul (4.70-6.10) Hemoglobin 8.5g/dl (14.0-18.0) Hematocrit 26.3% (42.0-52.0) Mean Corpuscular Volume 97.4fl (82.0-101.0) Mean Corpuscular Hemoglobin 31.5pg (29.0-33.0) Mean Corpuscular Hemoglobin Concent 32.3g/dl (32.0-37.0) Red Cell Distribution Width 14.9% (11.5-14.5) Platelet Count 84964^3/UL (140-415) Mean Platelet Volume 10.8fl (7.4-10.4) Neutrophils % 65.3% (39.0-77.0) Lymphocytes % 20.4% (15.0-51.0) Monocytes % 10.4% (0.0-11.0) Eosinophils % 2.7% (0.0-7.0) Basophils % 0.6% (0.0-2.0) Nucleated Red Blood Cells % 0.0/100WBC (0.0-0.0) Neutrophils # 4.310^3/ul (1.6-7.5) Lymphocytes # 1.410^3/ul (0.8-2.9) Monocytes # 0.710^3/ul (0.3-0.9) Eosinophils # 0.210^3/ul (0.0-0.5) Basophils # 0.010^3/ul (0.0-0.1) Nucleated Red Blood Cells # 0.010^3/ul (0.0-0.0) Prothrombin Time 19.8Sec (12.2-14.2) Prothrombin Time Ratio 1.5 INR International Normalized Ratio 1.67 Activated Partial Thromboplast Time 55.2Sec (25.0-35.0) Sodium Level 139mmol/L (135-144) Potassium Level 3.5mmol/L (3.5-5.1) Chloride Level 102mmol/L (97-110) Carbon Dioxide Level 26mmol/L (21-31) Anion Gap 15 (8-16) Blood Urea Nitrogen 55mg/dl (7-20) Creatinine 1.74mg/dl (0.61-1.24) Glucose Level 62mg/dl (70-220) Calcium Level 8.2mg/dl (8.4-10.2) Phosphorus Level 3.9mg/dl (2.5-4.9) Magnesium Level 2.0mg/dl (1.7-2.5) Total Bilirubin 0.5mg/dl (0.2-1.3) Direct Bilirubin 0.00mg/dl (0.00-0.20) Indirect Bilirubin 0.5mg/dl (0-1.1) Aspartate Amino Transf (AST/SGOT) 33IU/L (15-46) Alanine Aminotransferase (ALT/SGPT) 31IU/L (13-69) Alkaline Phosphatase 242IU/L (42-121) B-Type Natriuretic Peptide 27907CE/ML (0-125) Total Protein 6.4g/dl (6.1-8.1) Albumin 2.9g/dl (3.3-4.9) Globulin 3.50g/dl (1.3-3.2) Albumin/Globulin Ratio 0.82 Digoxin Level < 0.4ng/ml (1.0-2.0) Test 09/26/17 07:45 09/26/17 12:26 09/26/17 16:36 Bedside Glucose 70mg/dL (70-220) 113mg/dL (70-220) 122mg/dL (70-220) MISHA LANDRY NP Sep 26, 2017 17:20
[2017-09-26] MEDS ORDERED: BUMETANIDE 1 MG TAB PO SCH (18:00)
[2017-09-27] MEDS ORDERED: PANTOPRAZOLE (EC) 40 MG TAB PO SCH (06:00)
== END 2017-09-26 17:22 | disposition home or self-care (01) | DRG 291 ==
LOC: E/R 16:48 → MS3 21:14 → TEL 09-24 18:59
PROVIDERS: ADMIT Family Medicine; ATTEND Family Medicine
PROC: 0W993ZZ Drainage of Right Pleural Cavity, Percutaneous Approach (ICD-10-PCS; principal; 2017-09-23)
DX: I13.0 Hypertensive heart and chronic kidney disease with heart failure and stage 1 through stage 4 chronic kidney disease, or unspecified chronic kidney disease (principal); I50.23 Acute on chronic systolic (congestive) heart failure; N17.9 Acute kidney failure, unspecified; J18.9 Pneumonia, unspecified organism; E11.22 Type 2 diabetes mellitus with diabetic chronic kidney disease; J90 Pleural effusion, not elsewhere classified; N18.4 Chronic kidney disease, stage 4 (severe); I27.20 Pulmonary hypertension, unspecified; K74.60 Unspecified cirrhosis of liver; I25.5 Ischemic cardiomyopathy; Z95.810 Presence of automatic (implantable) cardiac defibrillator; I25.10 Atherosclerotic heart disease of native coronary artery without angina pectoris; Z95.5 Presence of coronary angioplasty implant and graft; I48.0 Paroxysmal atrial fibrillation; D64.9 Anemia, unspecified; E78.5 Hyperlipidemia, unspecified; E61.1 Iron deficiency; J20.9 Acute bronchitis, unspecified; Z85.038 Personal history of other malignant neoplasm of large intestine
CPT/HCPCS: 36415; 71010; 76942; 80053; 80061; 80162; 81003; 82043; 82270; 82728; 82945; 82962; 83036; 83540; 83615; 83735; 83880; 84100; 84155; 84157; 84300; 84443; 84484; 85025; 85610; 85730; 87070; 87102; 87116; 88104; 88305; 89051; 90686; 93005; 93306; 93971; 94664; 96374; 96375; 96376; C9113; J1815; J1956

== ENCOUNTER 2018-04-17 22:40 | Inpatient (IN) | END 2018-04-19 15:42 | disposition home or self-care (01) | DRG 194 ==

== ENCOUNTER 2019-01-11 20:39 | Emergency (ER) | payer MEDICARE, OTHER ==
[~2019-01-11] VITALS: Ht 165.1 cm; Wt 64.5 kg
[~2019-01-11 20:39] MED LIST changes: -ALLO300T2 PO; -AMIO100T4 PO; +APIX2.5T PO; -BUME1TAB18 PO; +BUME2TAB2 PO; +FER325 PO; +FLUT16SP17 NASAL; -ISOS30TA5 PO; +LACT1CAP57 PO; +LEVO750T8 PO; +NEPH PO; -SPIR25TA PO
[2019-01-11 21:00] VITALS: Ht 165.1 cm; Wt 64.5 kg
== END 2019-01-12 02:05 | disposition left against medical advice (07) ==
LOC: FTE 20:39
DX: Z53.21 Procedure and treatment not carried out due to patient leaving prior to being seen by health care provider (principal)
CPT/HCPCS: 93005

== ENCOUNTER 2019-04-21 07:33 | Day surgery (SDC) | payer MEDICARE, OTHER ==
--- NOTE | 2019-04-20 19:08 | PREAC ---
Date/Time of Note Date/Time of Note DATE: 04/20/19 TIME: 19:07 Anesthesia Eval and Record Evaluation Time Pre-Procedure Interview DATE: 04/20/19 TIME: 19:07 Age 68 Sex male NPO: 8 hrs Preoperative diagnosis atrial fibrillation Planned procedure synchronized cardioversion, DFT testing under MAC Past Medical History Past Medical History: Includes Cardio: HTN, Dyslipidemia, Arrythmia (atrial fibrillation), PPM/AICD, CHF (cardiomyopathy EF 45%) Endo: Diabetes Renal: CKD (stage III) Surgery & Anesthesia Issues No known issue Meds Anticoagulation: Yes (last dose Eliquis yesterday 04/20/19) Beta Andrea within 24 hr: Yes Reported Medications Multivit/Ca Carb/B Cmplx/Fa* (Anya-[place]*) 1 Tab Tab, 1 TAB PO DAILY, TAB 04/21/19 Bumetanide* (Bumetanide*) 2 Mg Tablet, 2 MG PO BID, TAB 04/21/19 Apixaban* (Eliquis*) 2.5 Mg Tablet, 2.5 MG PO BID, TAB 04/21/19 Amiodarone Hcl* (Amiodarone Hcl*) 200 Mg Tablet, 200 MG PO BID, #60 TAB 04/21/19 Carvedilol* (Carvedilol*) 3.125 Mg Tablet, 3.125 MG PO BID, #60 TAB 04/21/19 Atorvastatin* (Atorvastatin*) 40 Mg Tablet, 40 MG PO QHS, #30 TAB 04/21/19 Discontinued Reported Medications Fluticasone Propionate* (Fluticasone Propionate* Nasal) 50 Mcg/[place] - 16 Gm [place].susp, 1 SPRAY NASAL DAILY, #1 BOTTLE TO EACH NOSTRIL 04/17/18 Bumetanide* (Bumetanide*) 2 Mg Tablet, 2 MG PO BID, TAB 04/17/18 Multivit/Ca Carb/B Cmplx/Fa* (Anya-[place]*) 1 Tab Tab, 1 TAB PO DAILY, TAB 04/17/18 Ferrous Sulfate* (Ferrous Sulfate*) 325 Mg Tabec, 325 MG PO TID, TAB 04/17/18 Carvedilol* (Carvedilol*) 3.125 Mg Tablet, 3.125 MG PO BID, #60 TAB 04/17/18 Atorvastatin* (Atorvastatin*) 40 Mg Tablet, 40 MG PO QHS, #30 TAB 04/17/18 Apixaban* (Eliquis*) 2.5 Mg Tablet, 2.5 MG PO BID, TAB 04/17/18 Discontinued Scripts Lactobacillus Rhamnosus* (Culturelle*) 1 Each Cap.sprink, 1 CAP PO BID for 14 Days, CAP Prov:TABBY HERNANDEZ 04/19/18 Levofloxacin* (Levofloxacin*) 750 Mg Tablet, 750 MG PO Q48H for 6 Days, #3 TAB Start on 04/21 Prov:TABBY HERNANDEZ 04/19/18 Meds reviewed: Yes Allergies Coded Allergies: No Known Allergy (Unverified , 04/21/19) Allergies Reviewed: Yes Labs/Studies Labs Reviewed: Reviewed by anesthesiologist test: N/A Studies: ECG, CXR Pre-procedure Exam Airway: Adequate mouth opening, Adequate thyromental dist Mallampati: Mallampati II Teeth: Normal Lung: Normal Heart: Normal ASA Physical Status ASA physical status: 3 Emergency: None Planned Anesthetic General/MAC: MAC Planned Pain Management Parenteral pain med Pre-operative Attestations Prior to commencing anesthesia and surgery, the patient was re-evaluated, there was verification of: *The patient's identity *The results of appropriate recent lab work and preoperative vital signs *The above evaluation not changing prior to induction *Anesthetic plan, risk benefits, alternative and complications discussed with patient/family; questions answered; patient/family understands, accepts and wishes to proceed. MOLLY MARTINEZ April 20, 2019 19:08
[~2019-04-21] VITALS: Ht 165.1 cm; Wt 60.0 kg
[2019-04-21] VITALS (20 sets, daily range): BP systolic 103–117; BP diastolic 58–71; PULSE 0–70; RESP 15–20; Ht 165.1 cm; Wt 60.0 kg
[2019-04-21] MEDS ORDERED: ATOR40TA68 PO (07:59)
[2019-04-21] MEDS ORDERED: CARV3.1260 PO (07:59)
[2019-04-21] MEDS ORDERED: BUME2TAB2 PO (08:00)
[2019-04-21] MEDS ORDERED: APIX2.5T PO (08:00)
[2019-04-21] MEDS ORDERED: AMIO200T4 PO (08:00)
[2019-04-21] MEDS ORDERED: NEPH PO (08:01)
[2019-04-21] MEDS ORDERED: ACETAMINOPHEN 1000MG/100ML IV 100 ML IVPB ONE (09:30)
[2019-04-21] MEDS ORDERED: SOD CHLORIDE 0.9% 1,000 ML IV SCH (09:30)
[2019-04-21] MEDS ORDERED: ONDANSETRON 4 MG INJ IV PRN (09:30)
[2019-04-21] MEDS ORDERED: AMIODARONE 150 MG INJ ONE (09:55)
[2019-04-21] MEDS ORDERED: AMIODARONE 150MG/D5W BOLUS 100 ML IV ONE (10:00)
[2019-04-21] MEDS ORDERED: POTASSIUM CHLORIDE (SR) 20 MEQ TAB PO STA (10:28)
--- NOTE | 2019-04-21 10:32 | OPR ---
Date/Time of Note Date/Time of Note DATE: 04/21/19 TIME: 10:29 Operative Report Procedure Date: April 21, 2019 Preoperative Diagnosis afib. s/p ICD CHF Postoperative Diagnosis same Operation/Procedure Performed DFT testing, DC cardioversion Surgeon see signature line Conformal Pad Former none Anesthesia Type: other Estimated Blood Loss: none Transfusion none Specimen none Grafts/Implants none Complications none Procedure Description Procedure performed: Defibrillator threshold testing DC cardioversion Manager Night: Colin Macias MD Indication: Atrial fibrillation/CHF Procedure in detail: Written informed consent was obtained after risks benefits and alternatives discussed with the patient's in detail. Risks including but not limited to risk of anesthesia related complication arrhythmia stroke OR pain burning etc. discussed with the patient in detail. Patient was brought in to the Spectrographer recovery and placed in supine position. Adequate anesthesia was obtained by the anesthesiologist. Pacer pads were placed on the chest wall. DFT testing was then admitted to [facility] on T1 the patient was sedated. Patient was induced into the V. fib. He was successfully converted to ventricular paced rhythm with 21 J . However he appears to be calm continued in atrial fibrillation flutter. Then patient was shock externally with 200 J synchronized. He continued to be ventricular paced but the underlying rhythm was checked through the defibrillator was atrial fibrillation flutter. Second attempt was done with 200 synchronized joules which was successfully converted the patient into the AV pacing. Complications none Conclusion: Defibrillator threshold testing Successful DC cardioversion COLIN MACIAS MD April 21, 2019 10:32
--- NOTE | 2019-04-21 11:23 | PAC ---
Date/Time of Note Date/Time of Note DATE: 04/21/19 TIME: 11:21 Post-Anesthesia Notes Post-Anesthesia Note Last documented vital signs post bp 99/63 hr 60 temp 97 spo2 99% rr 16 Vital Signs Date Temp Pulse Resp B/P (MAP) Pulse Ox O2 O2 Flow FiO2 Time Delivery Rate 04/21/19 97.6 70 16 103/58 99 Room Air 08:30 (73) Activity: WNL Respiratory function: WNL Cardiovascular function: WNL Mental status: Baseline Pain reasonably controlled: Yes Hydration appropriate: Yes Nausea/Vomiting absent: Yes MOLLY MARTINEZ April 21, 2019 11:22
[2019-04-21] MEDS ORDERED: MAGNESIUM SULFATE 2 GM/50 ML 50 ML IVPB ONE (11:30)
--- NOTE | 2019-04-22 08:59 | RADRPT ---
Vent Rate: 70 bpm RR Interval: 858 msec HI Interval: 95 msec QRS Duration: 197 msec QT Interval: 534 msec QTC Interval: 576 msec P-R-T [place]: 0 - 237 - 85 degrees Ventricular-paced rhythm Biventricular paced rhythm.. Electronically Signed By: Alfa Macias
== END 2019-04-21 14:33 | disposition home or self-care (01) ==
LOC: CCL 07:33 → SDS 07:33 → CCL 14:33
PROVIDERS: ATTEND Internal Medicine Interventional Cardiology
DX: I48.91 Unspecified atrial fibrillation (principal); I13.0 Hypertensive heart and chronic kidney disease with heart failure and stage 1 through stage 4 chronic kidney disease, or unspecified chronic kidney disease; I50.9 Heart failure, unspecified; N18.3 Chronic kidney disease, stage 3 (moderate); E11.9 Type 2 diabetes mellitus without complications
CPT/HCPCS: 71045; 80053; 82962; 92960; 93005; J0282; J3475; J0131

== ENCOUNTER 2019-04-30 12:52 | Inpatient (IN) | payer MEDICARE, OTHER ==
[~2019-04-30] VITALS: Ht 170.2 cm; Wt 60.5 kg
[~2019-04-30 12:52] MED LIST changes: +AMIO200T4 PO; -FER325 PO; -FLUT16SP17 NASAL; -LACT1CAP57 PO; -LEVO750T8 PO
--- NOTE | 2019-04-30 15:51 | ERD ---
ER Documentation Chief Complaint Chief Complaint SOB X 2 WEEKS HPI 68-year-old male with a history of CHF EF 45%, atrial fibrillation with pacemaker, CKD, hypertension, diabetes presenting with complaints of progressively worsening bilateral lower extremity edema and shortness of breath with exertion over the past 2 weeks. He has also noticed decrease in his urination. He is compliant with all of his medications. He denies any associated chest pain. He has only minimal shortness of breath at rest. No fever, chills, cough, phlegm production, hemoptysis. He does have some abdominal pain with ambulation due to swelling in his abdomen that is also new. ROS All systems reviewed and are negative except as per history of present illness. Medications Home Meds Reported Medications Multivit/Ca Carb/B Cmplx/Fa* (Anya-[place]*) 1 Tab Tab, 1 TAB PO DAILY, TAB 04/21/19 Bumetanide* (Bumetanide*) 2 Mg Tablet, 2 MG PO BID, TAB 04/21/19 Apixaban* (Eliquis*) 2.5 Mg Tablet, 2.5 MG PO BID, TAB 04/21/19 Amiodarone Hcl* (Amiodarone Hcl*) 200 Mg Tablet, 200 MG PO BID, #60 TAB 04/21/19 Carvedilol* (Carvedilol*) 3.125 Mg Tablet, 3.125 MG PO BID, #60 TAB 04/21/19 Atorvastatin* (Atorvastatin*) 40 Mg Tablet, 40 MG PO QHS, #30 TAB 04/21/19 Allergies Allergies: Coded Allergies: No Known Allergy (Unverified , 04/30/19) PMhx/Soc History of Surgery: Yes (pacemaker place) Anesthesia Reaction: No Hx Neurological Disorder: No Hx Respiratory Disorders: No Hx Cardiac Disorders: Yes (Hypertension, A. fib, CHF with EF 45%) Hx Psychiatric Problems: No Hx Miscellaneous Medical Probl: Yes (Diabetes, CKD) Hx Alcohol Use: No Hx Substance Use: No Hx Tobacco Use: No Smoking Status: Never smoker FmHx Family History: No diabetes Physical Exam Vitals Vital Signs Date Temp Pulse Resp B/P (MAP) Pulse Ox O2 O2 Flow FiO2 Time Delivery Rate 04/30/19 98.2 72 18 105/65 96 13:04 (78) Physical Exam Const: No acute distress Head: Atraumatic Eyes: Normal Conjunctiva ENT: Normal External Ears, Nose and Mouth. Neck: Full range of motion. No meningismus. Resp: Fine crackles bilaterally up to mid lungs with diminished breath sounds at the bases. No wheezing. Cardio: Regular rate and rhythm, no murmurs Abd: Soft, non tender, mildly distended. Normal bowel sounds Skin: No petechiae or rashes Back: No midline or flank tenderness Ext: No cyanosis, 1+ pitting bilateral lower extremity edema Neur: Awake and alert Psych: Normal Mood and Affect Result Diagram: 04/30/19 1351 04/30/19 1351 Results 24 hrs Laboratory Tests Test 04/30/19 13:51 White Blood Count 5.3 10^3/ul Red Blood Count 3.57 10^6/ul Hemoglobin 10.9 g/dl Hematocrit 33.4 % Mean Corpuscular Volume 93.6 fl Mean Corpuscular Hemoglobin 30.5 pg Mean Corpuscular Hemoglobin Concent 32.6 g/dl Red Cell Distribution Width 14.6 % Platelet Count 208 10^3/UL Mean Platelet Volume 11.0 fl Immature Granulocytes % 0.200 % Neutrophils % 71.8 % Lymphocytes % 13.3 % Monocytes % 10.9 % Eosinophils % 2.5 % Basophils % 1.3 % Nucleated Red Blood Cells % 0.0 /100WBC Immature Granulocytes # 0.010 10^3/ul Neutrophils # 3.8 10^3/ul Lymphocytes # 0.7 10^3/ul Monocytes # 0.6 10^3/ul Eosinophils # 0.1 10^3/ul Basophils # 0.1 10^3/ul Nucleated Red Blood Cells # 0.0 10^3/ul Sodium Level 137 mmol/L Potassium Level 3.9 mmol/L Chloride Level 103 mmol/L Carbon Dioxide Level 29 mmol/L Anion Gap 5 Blood Urea Nitrogen 80 mg/dl Creatinine 2.94 mg/dl Est Glomerular Filtrat Rate mL/min 21 mL/min Glucose Level 111 mg/dl Calcium Level 7.5 mg/dl Total Bilirubin 0.4 mg/dl Direct Bilirubin 0.00 mg/dl Indirect Bilirubin 0.4 mg/dl Aspartate Amino Transf (AST/SGOT) 51 IU/L Alanine Aminotransferase (ALT/SGPT) 38 IU/L Alkaline Phosphatase 97 IU/L Troponin I < 0.012 ng/ml B-Type Natriuretic Peptide 17124 PG/ML Total Protein 5.6 g/dl Albumin 2.6 g/dl Globulin 3.00 g/dl Albumin/Globulin Ratio 0.86 Current Medications Medications Dose Sig/[place] Start Time Status Last (Trade) Ordered Route PRN Stop Time Admin Dose Reason Admin Bumetanide 1 mg NOW ONCE 04/30/19 DC 04/30/19 (Bumex) IV 16:00 04/30/19 15:57 16:01 Ondansetron 4 mg ER BRIDGE 04/30/19 HCl (Zofran PRN IV 17:00 05/01/19 Inj) NAUSEA/VOMITI 16:59 NG 650 mg ER BRIDGE 04/30/19 Acetaminophen PRN PO 17:00 05/01/19 (Tylenol .MILD PAIN 16:59 Tab) 1-3 OR TEMP Procedures/MDM EMERGENT LABS AND DIAGNOSTIC STUDIES: Lab Results above were reviewed and interpreted by me. CBC: Mild anemia, no evidence of infection CMP: Elevated BUN and creatinine, consistent with renal failure, chronic for the patient. No evidence of clinically significant electrolyte abnormality, acidosis, hypoglycemia, liver disease, or biliary obstruction Troponin within normal limits, not indicative of cardiac ischemia BNP elevated, consistent with heart failure 12-lead EKG was interpreted by Dana Calhoun MD: Paced rhythm at 70 bpm with left bundle branch block morphology No acute ST or T wave changes suggestive of acute ischemia or STEMI. Radiology Results as interpreted by Radiology below were reviewed by SGwendolyn Calhoun MD: Chest x-ray: Small to moderate right greater than left pleural effusions with diffuse right- sided interstitial and ground-glass infiltrates. Initial Nursing notes reviewed. Previous Medical Records requested via the Electronic Health Record. EMERGENCY DEPARTMENT COURSE / MEDICAL DECISION MAKING: Patient's heart failure symptoms is concerning for acute decompensation and will require inpatient workup and monitoring. Further w/u for ischemia, arrhythmia, PE or dissection will be deferred to the inpatient team. Accepting Care Team: Current data and ongoing care discussed. Time: Time of admission Primary Provider: Dr. Sudheer Begum Diagnosis: Primary Impression: Acute exacerbation of CHF (congestive heart failure) Heart failure type: unspecified Qualified Codes: I50.9 - Heart failure, unspecified Additional Impressions: CKD (chronic kidney disease) Chronic kidney disease stage: unspecified stage Qualified Codes: N18.9 - Chronic kidney disease, unspecified Oliguria Condition: Serious ALIX CALHOUN MD Apr 30, 2019 15:51
[2019-04-30] MEDS ORDERED: BUMETANIDE 1 MG INJ IV ONE (16:00)
[2019-04-30] MEDS ORDERED: ONDANSETRON 4 MG INJ IV PRN ×2 (17:00→17:30)
[2019-04-30] MEDS ORDERED: ACETAMINOPHEN 325 MG TAB PO PRN ×2 (17:00→17:30)
[2019-04-30] MEDS ORDERED: NACL 0.9% 3 ML SYG IV SCH (17:30)
[2019-04-30] MEDS ORDERED: ZOLPIDEM 5 MG TAB PO PRN (17:30)
[2019-04-30] MEDS ORDERED: morphine 2 MG INJ IV PRN (17:30)
[2019-04-30] MEDS ORDERED: HYDROCODONE/APAP (5/325) TAB PO PRN (17:30)
[2019-04-30] MEDS ORDERED: DOCUSATE SODIUM 100 MG CAP PO PRN (17:30)
[2019-04-30] MEDS ORDERED: BUMETANIDE 1 MG INJ IV SCH (18:00)
--- NOTE | 2019-04-30 19:29 | HP ---
Date/Time of Note Date/Time of Note DATE: 04/30/19 TIME: 19:24 Assessment/Plan VTE Prophylaxis Pharmacological prophylaxis: apixaban Assessment/Plan Hospital Course 1. Acute on chronic systolic heart failure exacerbation Diuresis with Bumex IV, continue home Coreg Follow-up on repeat echo, patient has a reported EF 45% 2. Acute on chronic kidney disease Patient has CKD 3 at baseline, creatinine is currently elevated relative to baseline and patient is reporting a decrease in urine output Patient may be third spacing and is intravascularly depleted Nephrology consultation 3. History of A. fib status post pacemaker placement Continue home Eliquis and amiodarone 4. Prediabetes Carb controlled diet Prophylaxis: Eliquis Result Diagram: 04/30/19 1351 04/30/19 1351 Results 24hrs Laboratory Tests Test 04/30/19 13:51 White Blood Count 5.3 Red Blood Count 3.57 #L Hemoglobin 10.9 L Hematocrit 33.4 #L Mean Corpuscular Volume 93.6 Mean Corpuscular Hemoglobin 30.5 Mean Corpuscular Hemoglobin Concent 32.6 Red Cell Distribution Width 14.6 H Platelet Count 208 # Mean Platelet Volume 11.0 H Immature Granulocytes % 0.200 Neutrophils % 71.8 Lymphocytes % 13.3 L Monocytes % 10.9 Eosinophils % 2.5 Basophils % 1.3 Nucleated Red Blood Cells % 0.0 Immature Granulocytes # 0.010 Neutrophils # 3.8 Lymphocytes # 0.7 L Monocytes # 0.6 Eosinophils # 0.1 Basophils # 0.1 Nucleated Red Blood Cells # 0.0 Sodium Level 137 Potassium Level 3.9 Chloride Level 103 Carbon Dioxide Level 29 Anion Gap 5 Blood Urea Nitrogen 80 H Creatinine 2.94 H Est Glomerular Filtrat Rate mL/min 21 L Glucose Level 111 Calcium Level 7.5 L Total Bilirubin 0.4 Direct Bilirubin 0.00 Indirect Bilirubin 0.4 Aspartate Amino Transf (AST/SGOT) 51 H Alanine Aminotransferase (ALT/SGPT) 38 Alkaline Phosphatase 97 Troponin I < 0.012 B-Type Natriuretic Peptide 20183 H Total Protein 5.6 L Albumin 2.6 L Globulin 3.00 Albumin/Globulin Ratio 0.86 HPI/ROS Admit Date/Time Admit Date/Time April 30, 2019 Hx of Present Illness Patient is a 68-year-old male with a history of A. fib status post pacemaker placement, CKD stage III, CHF with an EF of 45%, prediabetes and dyslipidemia. Patient presents with 2 weeks of worsening orthopnea and lower extremity swelling, in the ER BNP was elevated chest x-ray showed pulmonary edema. Patient also reports decreased urination over the past several days. Patient has no other complaints. ROS Constitutional: no complaints, improved Eyes: no complaints ENT: no complaints Respiratory: shortness of breath Cardiovascular: no complaints Gastrointestinal: no complaints Genitourinary: no complaints Musculoskeletal: no complaints Skin: no complaints Neurologic: no complaints Endocrine: no complaints Lymphatic: no complaints Psychological: no complaints, nl mood/affect Immunologic: no complaints PMH/Family/Social Past Medical History As per HPI Medications Current Medications IV Flush (NS 3 ml) 3 ml PER PROTOCOL IV ; Start 04/30/19 at 17:30 Ondansetron HCl (Zofran Inj) 4 mg Q6H PRN IV NAUSEA/VOMITING; Start 04/30/19 at 17:30 Acetaminophen (Tylenol Tab) 650 mg Q6H PRN PO .PAIN 1-3 OR TEMP; Start 04/30/19 at 17:30 Acetaminophen/ Hydrocodone Bitart ([place] (5/325)) 1 tab Q6H PRN PO .MOD PAIN 4- 6; Start 04/30/19 at 17:30 Morphine Sulfate (morphine) 2 mg Q4H PRN IV .SEVERE PAIN 7-10; Start 04/30/19 at 17:30 Docusate Sodium (Colace) 100 mg Q12H PRN PO .CONSTIPATION; Start 04/30/19 at 17:30 Zolpidem Tartrate (Ambien) 5 mg QHS PRN PO .INSOMNIA; Start 04/30/19 at 17:30 Amiodarone HCl (Cordarone) 200 mg BID PO ; Start 04/30/19 at 21:00 Apixaban (Eliquis) 2.5 mg BID PO ; Start 04/30/19 at 21:00 Atorvastatin Calcium (Lipitor) 40 mg QHS PO ; Start 04/30/19 at 21:00 Carvedilol (Coreg) 3.125 mg BID PO ; Start 04/30/19 at 21:00 Multivit/Ca Carb/ B Cmplx/FA/Prenat ([place]) 1 tab DAILY PO ; Start 05/01/19 at 09:00 Bumetanide (Bumex) 2 mg BID DIURETICS IV ; Start 04/30/19 at 18:00 Coded Allergies: No Known Allergy (Unverified , 04/30/19) Past Surgical History Past Surgical Hx: endoscopy Family History Significant Family History: no pertinent family hx Social History Alcohol Use: rarely Smoking Status: Never smoker Drug Use: none Exam/Review of Systems Vital Signs Vitals Vital Signs Date Temp Pulse Resp B/P (MAP) Pulse Ox O2 O2 Flow FiO2 Time Delivery Rate 04/30/19 70 17 107/69 99 Room Air 18:41 (82) 04/30/19 98.2 13:04 Exam Constitutional: alert, oriented Respiratory: clear to auscultation Cardiovascular: regular rate and rhythm Gastrointestinal: soft; No distended Extremities: edema CORBY BOYCE Apr 30, 2019 19:29
[2019-04-30 20:31] VITALS: PULSE 70
[2019-04-30 20:34] VITALS: BP 104/58; PULSE 70; RESP 17
[2019-04-30 20:56] VITALS: Ht 170.2 cm; Wt 60.5 kg
[2019-04-30] MEDS: APIXABAN 5 MG TABLET PO SCH (23:34)
[2019-04-30] MEDS: ATORVASTATIN 40 MG TAB PO SCH (23:34)
[2019-04-30] MEDS: AMIODARONE 200 MG TAB PO SCH (23:35)
[2019-05-01] VITALS (12 sets, daily range): BP systolic 94–123; BP diastolic 62–74; PULSE 69–103; RESP 16–19
[2019-05-01] MEDS: BUMETANIDE 1 MG INJ IV SCH ×2 (06:33→18:00)
--- NOTE | 2019-05-01 08:51 | CONS ---
DATE OF ADMISSION: 04/30/2019 DATE OF CONSULTATION: 05/01/2019 TYPE OF CONSULTATION: Nephrology. REASON FOR CONSULTATION: Chronic kidney disease, acute kidney injury. REQUESTING PHYSICIAN: Lianet Willard MD HISTORY OF PRESENT ILLNESS: This is a 68-year-old male with a past medical history of chronic kidney disease stage IIIB/IV with a baseline creatinine around 2 to 2.2 mg/dL. History of cardiorenal synd kristal, history of diabetes, history of cardiomyopathy, history of afib, history of dyslipidemia, previ ous history of colon cancer, gastric cancer, who presents to [facility] with shortn ess of breath, increased lower extremity swelling and orthopnea. The patient in the Emergency Room, a chest x-ray which showed evidence of pulmonary edema. In the Emergency Room, the patient was start ed on IV diuretic therapy and admitted to telemetry for evaluation. In terms of patient's renal history, the patient has underlying CKD as stated above. The patient als o has history of cardiorenal syndrome and his creatinine is fluctuating around 2 to 2.4 mg. The leyla ent currently denies any hemoptysis, hematemesis, or hematochezia. PAST MEDICAL HISTORY: As stated above, history of COPD, history of CKD stage IV, history of CHF, salvador b, hypertension, history of diabetes. PAST SURGICAL HISTORY: Status post pacemaker placement, status post colon resection. FAMILY HISTORY: Noncontributory. SOCIAL HISTORY: Does not drink, smoke or do drugs. MEDICATIONS: The patient's medications have been reviewed. REVIEW OF SYSTEMS: A 14-point review of systems conducted. Pertinent positives stated in HPI, other hernandez negative. PHYSICAL EXAMINATION: VITAL SIGNS: Blood pressure is 110/76, respirations 16, pulse 70, temperature 98.2. HEENT: Head is normocephalic. NECK: Positive for JVD. HEART: Regular rate. LUNGS: Show diminished breath sounds at base. Positive crackles. ABDOMEN: Soft, nontender to palpation. No rebound or guarding. EXTREMITIES: Negative for clubbing, cyanosis. Positive edema. DERMATOLOGIC: No rashes. MUSCULOSKELETAL: No joint effusions. NEUROLOGIC: No focal deficits. MEDICATIONS: Have been reviewed. LABORATORY DATA: Has been reviewed. IMAGING STUDIES: Have been reviewed. ASSESSMENT AND PLAN: 1. Nonoliguric acute kidney injury on top of chronic kidney disease stage IV with previous baseline creatinine around 2 to 2.2 mg/dL. Etiology of acute kidney injury is likely secondary to cardiorenal syndrome. The patient's renal function has initially improved with diuretic therapy. Plan at this point is to do a full evaluation. We will repeat a UA with microanalysis. Will check urine electrol ytes. We will quantify the patient's proteinuria. We would otherwise continue current medical manag ement. Continue diuretic therapy, monitor renal function and electrolytes closely. 2. Volume overload secondary to acute heart failure. The patient is clinically overloaded on exam. Chest x-ray also shows pleural effusions. Continue current diuretic regimen. Consider repeat 2D ec ho. Consider checking serial troponins, monitor closely. 3. Acute on chronic systolic heart failure. As stated above, the patient is currently compensated. Continue diuretic regimen. Would agree with checking troponins, 2D echo. Consider cardiology evalua tion. 4. Anemia. Continue to monitor hemoglobin and hematocrit levels. 5. Mineral bone disorder, monitor calcium and phosphorus levels. 6. History of atrial fibrillation, status post pacemaker. Continue medical management. 7. Acute respiratory failure secondary to congestive heart failure exacerbation. Continue medical m anagement as stated above. Continue supplemental oxygen and monitor. Thank you, Dr. Willard, for this interesting consult. It will be a pleasure to follow the patient wi th you throughout the hospital course. Dictated By: ANIL CONNOR DO NR/NTS Conf#: [id number] DID#: [id number] CC: LIANET WILLARD MD;*EndCC*
[2019-05-01] MEDS: MULTIVIT/CA CARB/B CMPLX/FA TAB PO SCH (09:58)
[2019-05-01] MEDS: APIXABAN 5 MG TABLET PO SCH ×2 (09:59→21:46)
[2019-05-01] MEDS: AMIODARONE 200 MG TAB PO SCH ×2 (10:01→21:00)
--- NOTE | 2019-05-01 11:24 | RADRPT ---
Echocardiogram Report Patient Name: NASIM HEADPatient ID: [id number] : 1950 (68y 6m)Study Date: 05/01/2019 10:05:10 AM Gender: Nasimcession #: [id number] Tech: Pete Dove [facility] Location: [address] Ref.Physician: CORBY BOYCE Height(Cm): BSA: Weight(Kg): Quality: AdequateOrder Physician: CORBY BOYCE Account #: Procedures: Echocardiographic Report: Transthoracic echocardiogram with complete 2D, M-Mode, and doppler examination. Indications: Congestive Heart Failure. Measurements: 2D/M Mode Doppler Measurement Value Normal Range Measurement Value Normal Range LVIDd 2D 4.7 [ 4.2 - 5.8 ] cm AV Peak Jairo 1.4 [ 100.0 - 170.0 ] cm/sec LVIDs 2D 4.2 [ 2.5 - 4.0 ] cm AV Peak PG 8.0 [ 2.0 - 9.0 ] mmHg LVPWd 2D 0.8 [ 0.6 - 1.0 ] cm LVOT Peak Jairo 0.6 [ 70.0 - 110.0 ] cm/sec IVSd 2D 0.8 [ 0.6 - 1.0 ] cm LVOT Peak PG 1.0 [ 2.0 - 6.0 ] mmHg AoR Diam 2D 3.1 [ 2.6 - 3.4 ] cm MV E Peak Jairo 1.2 [ 60.0 - 130.0 ] cm/sec EDV 2D 100.0 [ 62.0 - 150.0 ] ml MV Decel Time 222 [ 104 - 258 ] msec ESV 2D 79.5 [ 21.0 - 61.0 ] ml Lat E` Jairo 0.0 [ 10.0 - 15.0 ] cm/sec EF 2D 20.5 [ 52.0 - 72.0 ] percent Lateral E/E` 32.5 [ 1.0 - 2.0 ] ratio LA Dimen 2D 3.9 [ 3.0 - 4.0 ] cm TR Peak Jairo 3.3 [ 100.0 - 280.0 ] cm/sec TR Peak PG 43.0 mmHg RVSP 57.0 [ 10.0 - 36.0 ] mmHg Findings: Left Ventricle: Normal left ventricular cavity size. Normal left ventricular wall thickness. Moderate left ventricular systolic dysfunction. Ejection fraction is visually estimated at 35-40 %. Tissue Doppler/Mitral Doppler indices are consistent with impaired relaxation (Stage I diastolic dysfunction). Akinesis of the inferior and inferolateral raphael. Hypokinesis of the anterior wall. Right Ventricle: Moderate enlargement of right ventricle. Linear artifact in right ventricle suggestive of catheter, pacer lead, or ICD lead. Left Atrium: There is severe enlargement of left atrium. Right Atrium: There is severe enlargement of right atrium. Mitral Valve: Moderate mitral annular calcification. Mild to moderate mitral valve regurgitation. Aortic Valve: Aortic sclerosis without significant stenosis. Trace aortic valve regurgitation. Tricuspid Valve: Normal appearance of the tricuspid valve. The estimated Peak RVSP is 57 mmHg. There is mild tricuspid regurgitation. Pericardium: Small pericardial effusion. Left pleural effusion seen. Aorta: Normal aortic root. IVC: Dilated inferior vena cava with poor inspiratory collapse consistent with elevated right atrial pressures. Conclusions: Normal left ventricular cavity size. Normal left ventricular wall thickness. Moderate left ventricular systolic dysfunction. Ejection fraction is visually estimated at 35-40 %. Tissue Doppler/Mitral Doppler indices are consistent with impaired relaxation (Stage I diastolic dysfunction). Akinesis of the inferior and inferolateral raphael. Hypokinesis of the anterior wall. Moderate enlargement of right ventricle. Linear artifact in right ventricle suggestive of catheter, pacer lead, or ICD lead. Aortic sclerosis without significant stenosis. Trace aortic valve regurgitation. There is severe enlargement of left atrium. There is severe enlargement of right atrium. Small pericardial effusion. Left pleural effusion seen. The estimated Peak RVSP is 57 mmHg. Dilated inferior vena cava with poor inspiratory collapse consistent with elevated right atrial pressures. Electronically Signed By: Noah Bertrand 2019-05-01 11:23:19 PDT
--- NOTE | 2019-05-01 15:01 | PN ---
Date/Time of Note Date/Time of Note DATE: 05/01/19 TIME: 15:00 Assessment/Plan VTE Prophylaxis Risk score (from Nsg)>0 risk: 2 Pharmacological prophylaxis: apixaban Assessment/Plan Hospital Course 1. Acute on chronic systolic heart failure exacerbation Diuresis with Bumex IV, continue home Coreg Follow-up on repeat echo, patient has a reported EF 45% 2. Acute on chronic kidney disease likely cardiorenal Patient has CKD 3 at baseline, creatinine has improved with diuresis suggesting cardiorenal Nephrology consultation appreciated 3. History of A. fib status post pacemaker placement Continue home Eliquis and amiodarone 4. Prediabetes Carb controlled diet Prophylaxis: Eliquis DC planning: Continue diuresis, anticipate DC home tomorrow Result Diagram: 05/01/1951905/01/19 0520 Results 24hrs Laboratory Tests Test 05/01/19 05:20 White Blood Count 5.2 Red Blood Count 3.28 L Hemoglobin 9.9 L Hematocrit 30.8 L Mean Corpuscular Volume 93.9 Mean Corpuscular Hemoglobin 30.2 Mean Corpuscular Hemoglobin Concent 32.1 Red Cell Distribution Width 14.6 H Platelet Count 201 Mean Platelet Volume 11.3 H Immature Granulocytes % 0.600 H Neutrophils % 67.4 Lymphocytes % 15.5 Monocytes % 12.2 H Eosinophils % 3.5 Basophils % 0.8 Nucleated Red Blood Cells % 0.0 Immature Granulocytes # 0.030 Neutrophils # 3.5 Lymphocytes # 0.8 Monocytes # 0.6 Eosinophils # 0.2 Basophils # 0.0 Nucleated Red Blood Cells # 0.0 Sodium Level 140 Potassium Level 3.5 Chloride Level 106 Carbon Dioxide Level 30 Anion Gap 4 L Blood Urea Nitrogen 69 H Creatinine 2.27 H Est Glomerular Filtrat Rate mL/min 29 L Glucose Level 82 Hemoglobin A1c 5.8 Calcium Level 7.6 L Phosphorus Level 3.8 Magnesium Level 2.2 Triglycerides Level 111 Cholesterol Level 104 LDL Cholesterol, Calculated 61 HDL Cholesterol 21 L Cholesterol/HDL Ratio 4.9 Subjective 24 Hr Interval Summary Respiratory: shortness of breath Exam/Review of Systems Exam Vitals Vital Signs Date Temp Pulse Resp B/P (MAP) Pulse Ox O2 O2 Flow FiO2 Time Delivery Rate 05/01/19 98.2 69 18 113/74 96 11:31 (87) 05/01/19 1.0 09:24 04/30/19 Room Air 19:44 Constitutional: alert, oriented Respiratory: clear to auscultation Cardiovascular: regular rate and rhythm Gastrointestinal: soft; No distended Musculoskeletal: nl extremities to inspection Results Results 24hrs Laboratory Tests Test 05/01/19 05:20 White Blood Count 5.2 Red Blood Count 3.28 L Hemoglobin 9.9 L Hematocrit 30.8 L Mean Corpuscular Volume 93.9 Mean Corpuscular Hemoglobin 30.2 Mean Corpuscular Hemoglobin Concent 32.1 Red Cell Distribution Width 14.6 H Platelet Count 201 Mean Platelet Volume 11.3 H Immature Granulocytes % 0.600 H Neutrophils % 67.4 Lymphocytes % 15.5 Monocytes % 12.2 H Eosinophils % 3.5 Basophils % 0.8 Nucleated Red Blood Cells % 0.0 Immature Granulocytes # 0.030 Neutrophils # 3.5 Lymphocytes # 0.8 Monocytes # 0.6 Eosinophils # 0.2 Basophils # 0.0 Nucleated Red Blood Cells # 0.0 Sodium Level 140 Potassium Level 3.5 Chloride Level 106 Carbon Dioxide Level 30 Anion Gap 4 L Blood Urea Nitrogen 69 H Creatinine 2.27 H Est Glomerular Filtrat Rate mL/min 29 L Glucose Level 82 Hemoglobin A1c 5.8 Calcium Level 7.6 L Phosphorus Level 3.8 Magnesium Level 2.2 Triglycerides Level 111 Cholesterol Level 104 LDL Cholesterol, Calculated 61 HDL Cholesterol 21 L Cholesterol/HDL Ratio 4.9 Medications Medication Current Medications IV Flush (NS 3 ml) 3 ml PER PROTOCOL IV ; Start 04/30/19 at 17:30 Ondansetron HCl (Zofran Inj) 4 mg Q6H PRN IV NAUSEA/VOMITING; Start 04/30/19 at 17:30 Acetaminophen (Tylenol Tab) 650 mg Q6H PRN PO .PAIN 1-3 OR TEMP; Start 04/30/19 at 17:30 Acetaminophen/ Hydrocodone Bitart ([place] (5/325)) 1 tab Q6H PRN PO .MOD PAIN 4- 6; Start 04/30/19 at 17:30 Morphine Sulfate (morphine) 2 mg Q4H PRN IV .SEVERE PAIN 7-10; Start 04/30/19 at 17:30 Docusate Sodium (Colace) 100 mg Q12H PRN PO .CONSTIPATION; Start 04/30/19 at 17:30 Zolpidem Tartrate (Ambien) 5 mg QHS PRN PO .INSOMNIA; Start 04/30/19 at 17:30 Amiodarone HCl (Cordarone) 200 mg BID PO Last administered on 05/01/19 10:01; Admin Dose 200 MG; Start 04/30/19 at 21:00 Apixaban (Eliquis) 2.5 mg BID PO Last administered on 05/01/19at 09:59; Admin Dose 2.5 MG; Start 04/30/19 at 21:00 Atorvastatin Calcium (Lipitor) 40 mg QHS PO Last administered on 04/30/19at 23:34; Admin Dose 40 MG; Start 04/30/19 at 21:00 Carvedilol (Coreg) 3.125 mg BID PO Last administered on 05/01/19 10:02; Admin Dose 3.125 MG; Start 04/30/19 at 21:00 Multivit/Ca Carb/ B Cmplx/FA/Prenat (Anya-[place]) 1 tab DAILY PO Last administered on 05/01/19 09:58; Admin Dose 1 TAB; Start 05/01/19 at 09:00 Bumetanide (Bumex) 1 mg BID DIURETICS IV Last administered on 05/01/19 06:33; Admin Dose 1 MG; Start 05/01/19 at 06:00 CORBY BOYCE May 01, 2019 15:01
[2019-05-01] MEDS: ATORVASTATIN 40 MG TAB PO SCH (21:42)
[2019-05-02] VITALS (10 sets, daily range): BP systolic 89–113; BP diastolic 50–75; PULSE 69–81; RESP 17–18
[2019-05-02] MEDS ORDERED: BUMETANIDE 1 MG INJ IV ONE (01:30)
[2019-05-02] MEDS: ALBUTEROL/IPRATROPIUM (NEB) 3 ML AMP HHN PRN ×2 (01:53→12:06)
[2019-05-02] MEDS: BUMETANIDE 1 MG INJ IV SCH (06:24)
[2019-05-02] MEDS ORDERED: METOLAZONE 2.5 MG TAB PO ONE (08:00)
[2019-05-02] MEDS: MULTIVIT/CA CARB/B CMPLX/FA TAB PO SCH (08:28)
[2019-05-02] MEDS: AMIODARONE 200 MG TAB PO SCH (08:29)
[2019-05-02] MEDS: APIXABAN 5 MG TABLET PO SCH (08:29)
--- NOTE | 2019-05-02 09:09 | PN ---
DATE: 05/02/2019 SUBJECTIVE: The patient is stable, continues to have shortness of breath, although mildly improved. No other events noted. No hemoptysis, hematemesis, or hematochezia. OBJECTIVE: VITAL SIGNS: Blood pressure is 113/68, respiration 19, pulse 74, temperature 98.1. HEENT: Head is normocephalic. NECK: Supple. HEART: Regular rate. LUNGS: Show diminished breath sounds at the base. ABDOMEN: Soft, nontender to palpation without rebound or guarding. EXTREMITIES: Negative for clubbing, cyanosis, no edema. DERMATOLOGIC: No rashes. MUSCULOSKELETAL: No joint effusion. NEUROLOGIC: No change in exam. MEDICATIONS: Have been reviewed. LABORATORY DATA: Has been reviewed. Patient has a FENa less than 1%. IMAGING STUDIES: Chest x-ray was reviewed. 2D ECHO: Was reviewed. ASSESSMENT AND PLAN: Nonoliguric acute kidney injury on top of chronic kidney disease stage IV with previous baseline creatinine around 2 to 2.2 mg/dL. Etiology of acute kidney injury is secondary to cardiorenal syndrome. The patient's urinalysis is bland, no active sediment. The patient has a FENa of less than 1% which can be seen in prerenal etiologies, i.e. cardiorenal syndrome. The patient's renal function has been improving with diuretic therapy. RECOMMENDATIONS: 1. To continue Bumex at current rate. Will add metolazone to augment diuresis. Continue to monitor electrolytes, renal function closely. 2. Acute decompensated heart failure. The patient is critically volume overload on exam, elevated J VD. Positive crackles on pulmonary exam. Continue diuretic regimen. Will add metolazone to augment diuresis. Monitor closely. 3. Anemia. Continue to monitor hemoglobin and hematocrit levels. 4. Mineral bone disorder. Monitor calcium and phosphorus levels. 5. History of atrial fibrillation, with pacemaker. Continue medical management. 6. Acute respiratory failure secondary to congestive heart failure exacerbation, pulmonary edema, co ntinue medical management as stated above. 7. Supplemental oxygen. Dictated By: ANIL CONNOR DO NR/NTS Conf#: [id number] DID#: [id number] CC: CORBY BOYCE MD;*EndCC*
--- NOTE | 2019-05-02 14:22 | PDOCDIS ---
Discharge Instructions CONDITION [id number] Patient Condition: [id number] Good HOME CARE INSTRUCTIONS: [id number] Diet Instructions: [id number] Reduced Sodium ACTIVITY: [id number] Activity Restrictions: [id number] No Restrictions FOLLOW UP/APPOINTMENTS Follow-up Plan Follow-up with your PCP and consulting marine engineer in 1 to 2 weeks CORBY BOYCE May 02, 2019 14:22
--- NOTE | 2019-05-02 14:33 | CONS ---
Assessment/Plan Assessment/Plan Hospital Course (Demo Recall) 68 yo with chronic systolic heart failure, presented with acute failure, now improved on exam, still with productive cough. Imp: Ac on chr systolic heart failure, improved Paroxysmal afib, now in nsr, s/p cardioversion 1 1/2 weeks ago Ac on chr renal failure, better Recommendations: Stable for discharge Follow with Dr. Macias this week Continue amiodarone for rhythm control, continue carvedilol for cardiomyopathy Presumably no marcie/arb secondary to CKD stage 4 Consultation Date/Type/Reason Admit Date/Time April 30, 2019 Date of Consultation: May 02, 2019 Type of Consult Cardiology Reason for Consultation shortness of breath Requesting Provider: CORBY BOYCE Date/Time of Note DATE: 05/02/19 TIME: 14:13 Hx of Present Illness 68 yo who is a patient of Dr. Alfa Macias presents with dyspnea, states he's had a productive cough for the past 3 weeks. He also complains of feeling very cold. He has been diuresed since admission, with improvement of his renal function somewhat. Constitutional: chills Eyes: no complaints ENT: no complaints Respiratory: cough, shortness of breath Cardiovascular: no complaints; No chest pain Gastrointestinal: pain (diffuse) Genitourinary: no complaints Musculoskeletal: no complaints Skin: no complaints Neurologic: no complaints Endocrine: no complaints Lymphatic: no complaints Psychological: no complaints Immunologic: no complaints Past Medical History Medical History: congestive heart failure, other (atrial fibrillation) Home Meds Reported Medications Multivit/Ca Carb/B Cmplx/Fa* (Anya-[place]*) 1 Tab Tab, 1 TAB PO DAILY, TAB 04/21/19 Bumetanide* (Bumetanide*) 2 Mg Tablet, 2 MG PO BID, TAB 04/21/19 Apixaban* (Eliquis*) 2.5 Mg Tablet, 2.5 MG PO BID, TAB 04/21/19 Amiodarone Hcl* (Amiodarone Hcl*) 200 Mg Tablet, 200 MG PO BID, #60 TAB 04/21/19 Carvedilol* (Carvedilol*) 3.125 Mg Tablet, 3.125 MG PO BID, #60 TAB 04/21/19 Atorvastatin* (Atorvastatin*) 40 Mg Tablet, 40 MG PO QHS, #30 TAB 04/21/19 Medications Current Medications IV Flush (NS 3 ml) 3 ml PER PROTOCOL IV ; Start 04/30/19 at 17:30 Ondansetron HCl (Zofran Inj) 4 mg Q6H PRN IV NAUSEA/VOMITING Last administered on 05/02/19 12:08; Admin Dose 4 MG; Start 04/30/19 at 17:30 Acetaminophen (Tylenol Tab) 650 mg Q6H PRN PO .PAIN 1-3 OR TEMP Last administered on 05/02/19 13:06; Admin Dose 650 MG; Start 04/30/19 at 17:30 Acetaminophen/ Hydrocodone Bitart ([place] (5/325)) 1 tab Q6H PRN PO .MOD PAIN 4- 6; Start 04/30/19 at 17:30 Morphine Sulfate (morphine) 2 mg Q4H PRN IV .SEVERE PAIN 7-10; Start 04/30/19 at 17:30 Docusate Sodium (Colace) 100 mg Q12H PRN PO .CONSTIPATION; Start 04/30/19 at 17:30 Zolpidem Tartrate (Ambien) 5 mg QHS PRN PO .INSOMNIA; Start 04/30/19 at 17:30 Amiodarone HCl (Cordarone) 200 mg BID PO Last administered on 05/02/19 08:29; Admin Dose 200 MG; Start 04/30/19 at 21:00 Apixaban (Eliquis) 2.5 mg BID PO Last administered on 05/02/19 08:29; Admin Dose 2.5 MG; Start 04/30/19 at 21:00 Atorvastatin Calcium (Lipitor) 40 mg QHS PO Last administered on 05/01/19 21:42; Admin Dose 40 MG; Start 04/30/19 at 21:00 Carvedilol (Coreg) 3.125 mg BID PO Last administered on 05/02/19 08:29; Admin Dose 3.125 MG; Start 04/30/19 at 21:00 Multivit/Ca Carb/ B Cmplx/FA/Prenat (Anya-[place]) 1 tab DAILY PO Last administered on 05/02/19 08:28; Admin Dose 1 TAB; Start 05/01/19 at 09:00 Bumetanide (Bumex) 1 mg BID DIURETICS IV Last administered on 6/8/19at 06:24; Admin Dose 1 MG; Start 05/01/19 at 06:00 Albuterol/ Ipratropium (Duoneb) 3 ml Q4H RESP THERAPY PRN HHN WHEEZING Last administered on 05/02/19at 12:06; Admin Dose 3 ML; Start 05/02/19 at 01:30 Allergies: Coded Allergies: No Known Allergy (Unverified , 04/30/19) Past Surgical History Past Surgical Hx: no surgical history (pacemaker), endoscopy Family History Significant Family History: no pertinent family hx Social History Alcohol Use: rarely Smoking Status: Never smoker Drug Use: none Exam/Review of Systems Vital Signs Vitals Vital Signs Date Temp Pulse Resp B/P (MAP) Pulse Ox O2 O2 Flow FiO2 Time Delivery Rate 05/02/19 98 2.0 12:06 05/02/19 72 24 Nasal 28 12:06 Cannula 05/02/19 98.1 96/53 (67) 11:09 Intake and Output 05/01/19 05/01/19 05/02/19 1515:00 23:00 07:00 IntakeIntake Total 100 ml 700 ml 530 ml OutputOutput Total 900 ml 650 ml BalanceBalance 100 ml -200 ml -120 ml Exam Constitutional: alert, oriented, well developed Psych: no complaints, nl mood/affect Head: normocephalic, atraumatic Eyes: EOMI, nl lids ENMT: nl external ears & nose Neck: supple; No jvd, No bruits Respiratory: clear to auscultation Cardiovascular: regular rate and rhythm; No murmurs/extra sounds Gastrointestinal: soft, nl liver, spleen, tender Musculoskeletal: nl extremities to inspection Extremities: normal pulses; No edema Neurological: nl mental status, nl speech Skin: nl turgor Labs Result Diagram: 05/02/19 0547 05/02/19 0547 Results 24hrs Laboratory Tests Test 05/01/19 19:40 05/02/19 05:47 Urine Color YELLOW Urine Clarity CLEAR Urine pH 5.0 Urine Specific Ray 1.011 Urine Ketones NEGATIVE Urine Nitrite NEGATIVE Urine Bilirubin NEGATIVE Urine Urobilinogen NEGATIVE Urine Leukocyte Esterase NEGATIVE Urine Hemoglobin NEGATIVE Urine Random Creatinine 70.99 Urine Random Sodium < 13 L Urine Glucose NEGATIVE Urine Total Protein 9.0 White Blood Count 5.8 Red Blood Count 3.47 L Hemoglobin 10.7 L Hematocrit 32.7 L Mean Corpuscular Volume 94.2 Mean Corpuscular Hemoglobin 30.8 Mean Corpuscular Hemoglobin Concent 32.7 Red Cell Distribution Width 14.6 H Platelet Count 214 Mean Platelet Volume 10.9 H Immature Granulocytes % 0.300 Neutrophils % 67.0 Lymphocytes % 15.8 Monocytes % 12.7 H Eosinophils % 3.3 Basophils % 0.9 Nucleated Red Blood Cells % 0.0 Immature Granulocytes # 0.020 Neutrophils # 3.9 Lymphocytes # 0.9 Monocytes # 0.7 Eosinophils # 0.2 Basophils # 0.1 Nucleated Red Blood Cells # 0.0 Sodium Level 140 Potassium Level 3.7 Chloride Level 105 Carbon Dioxide Level 30 Anion Gap 5 Blood Urea Nitrogen 54 H Creatinine 1.90 H Est Glomerular Filtrat Rate mL/min 35 L Glucose Level 97 Calcium Level 7.6 L Phosphorus Level 3.6 Magnesium Level 2.3 Imaging Imaging EKG from admission shows probable NSR with a ventricular paced rhythm Medications Medications Current Medications IV Flush (NS 3 ml) 3 ml PER PROTOCOL IV ; Start 04/30/19 at 17:30 Ondansetron HCl (Zofran Inj) 4 mg Q6H PRN IV NAUSEA/VOMITING Last administered on 05/02/19at 12:08; Admin Dose 4 MG; Start 04/30/19 at 17:30 Acetaminophen (Tylenol Tab) 650 mg Q6H PRN PO .PAIN 1-3 OR TEMP Last administ ered on 05/02/19at 13:06; Admin Dose 650 MG; Start 04/30/19 at 17:30 Acetaminophen/ Hydrocodone Bitart ([place] (5/325)) 1 tab Q6H PRN PO .MOD PAIN 4- 6; Start 04/30/19 at 17:30 Morphine Sulfate (morphine) 2 mg Q4H PRN IV .SEVERE PAIN 7-10; Start 04/30/19 at 17:30 Docusate Sodium (Colace) 100 mg Q12H PRN PO .CONSTIPATION; Start 04/30/19 at 17:30 Zolpidem Tartrate (Ambien) 5 mg QHS PRN PO .INSOMNIA; Start 04/30/19 at 17:30 Amiodarone HCl (Cordarone) 200 mg BID PO Last administered on 05/02/19at 08:29; A dmin Dose 200 MG; Start 04/30/19 at 21:00 Apixaban (Eliquis) 2.5 mg BID PO Last administered on 05/02/19 08:29; Admin Dose 2.5 MG; Start 04/30/19 at 21:00 Atorvastatin Calcium (Lipitor) 40 mg QHS PO Last administered on 05/01/19 21:42; Admin Dose 40 MG; Start 04/30/19 at 21:00 Carvedilol (Coreg) 3.125 mg BID PO Last administered on 05/02/19 08:29; Admin Dose 3.125 MG; Start 04/30/19 at 21:00 Multivit/Ca Carb/ B Cmplx/FA/Prenat ([place]ya-[place]) 1 tab DAILY PO Last administered on 05/02/19 08:28; Admin Dose 1 TAB; Start 05/01/19 at 09:00 Bumetanide (Bumex) 1 mg BID DIURETICS IV Last administered on 05/02/19 06:24; Admin Dose 1 MG; Start 05/01/19 at 06:00 Albuterol/ Ipratropium (Duoneb) 3 ml Q4H RESP THERAPY PRN HHN WHEEZING Last administered on 05/02/19 12:06; Admin Dose 3 ML; Start 05/02/19 at 01:30 ALYSSA GARCIA May 02, 2019 14:33
--- NOTE | 2019-05-02 17:53 | DS ---
Date/Time of Note Date/Time of Note DATE: 05/02/19 TIME: 17:50 Discharge Summary Admission/Discharge Info Admit Date/Time Apr 30, 2019 at 16:46 Discharge Date/Time May 02, 2019 Discharge Diagnosis 1. Acute on chronic systolic heart failure exacerbation Status post diuresis with Bumex IV Continue home Coreg and Bumex Repeat echo shows EF 35 to 40%, follow-up with veneer jointer helper Dr. Macias in clinic 2. Acute on chronic kidney disease likely cardiorenal Patient has CKD 3 at baseline, creatinine has improved with diuresis suggesting cardiorenal Nephrology consultation appreciated 3. History of A. fib status post pacemaker placement Continue home Eliquis and amiodarone 4. Prediabetes Carb controlled diet Patient Condition: Good Hospital Course Patient is a 68-year-old male with a history of A. fib status post pacemaker placement, CKD stage III, CHF with an EF of 45%, prediabetes and dyslipidemia. Patient presents with 2 weeks of worsening orthopnea and lower extremity swel ling, in the ER BNP was elevated chest x-ray showed pulmonary edema. Patient also had evidence of acute on chronic kidney injury, nephrology and cardiology consultations were obtained. Of note patient's veneer jointer helper is Dr Macias. Patient was diuresed with Bumex IV with improvement of CHF exacerbation and acute kidney injury suggesting cardiorenal syndrome. Patient was stable for DC per cardiology with plans to follow-up as an outpatient. On day of discharge patient vitals, labs of his exam are stable. Home Meds Reported Medications Multivit/Ca Carb/B Cmplx/Fa* (Anya-[place]*) 1 Tab Tab, 1 TAB PO DAILY, TAB 04/21/19 Bumetanide* (Bumetanide*) 2 Mg Tablet, 2 MG PO BID, TAB 04/21/19 Apixaban* (Eliquis*) 2.5 Mg Tablet, 2.5 MG PO BID, TAB 04/21/19 Amiodarone Hcl* (Amiodarone Hcl*) 200 Mg Tablet, 200 MG PO BID, #60 TAB 04/21/19 Carvedilol* (Carvedilol*) 3.125 Mg Tablet, 3.125 MG PO BID, #60 TAB 04/21/19 Atorvastatin* (Atorvastatin*) 40 Mg Tablet, 40 MG PO QHS, #30 TAB 04/21/19 Follow-up Plan Follow-up with your PCP and veneer jointer helper in 1 to 2 weeks Primary Care Provider Not On Staff Doctor Time spent on discharge: > 30 minutes CORBY BOYCE May 02, 2019 17:53
[2019-05-02] MEDS ORDERED: GUAI-637 PO (17:59)
== END 2019-05-02 18:30 | disposition home or self-care (01) | DRG 291 ==
LOC: E/R 12:52 → 6WM 16:46
PROVIDERS: ADMIT Internal Medicine; ATTEND Internal Medicine
DX: I13.0 Hypertensive heart and chronic kidney disease with heart failure and stage 1 through stage 4 chronic kidney disease, or unspecified chronic kidney disease (principal); I50.23 Acute on chronic systolic (congestive) heart failure; J96.00 Acute respiratory failure, unspecified whether with hypoxia or hypercapnia; N17.9 Acute kidney failure, unspecified; I42.9 Cardiomyopathy, unspecified; E78.5 Hyperlipidemia, unspecified; D64.9 Anemia, unspecified; I48.0 Paroxysmal atrial fibrillation; N18.3 Chronic kidney disease, stage 3 (moderate); R73.03 Prediabetes; Z85.038 Personal history of other malignant neoplasm of large intestine; Z95.0 Presence of cardiac pacemaker; Z85.028 Personal history of other malignant neoplasm of stomach
CPT/HCPCS: 36415; 71045; 80048; 80053; 80061; 81003; 82043; 83036; 83735; 83880; 84100; 84155; 84300; 84484; 85025; 93005; 93306; 94640; 94664; 96374; J2405